=== PATIENT | female | born 1940 | race Caucasian/White ===

== ENCOUNTER → 2016-07-17 | Outpatient (CLI) | payer OTHER ==
[~2016-07-17] MED LIST: ASPI325T45 PO; ATV5 PO; AZEL0.15 NAE; CETI10TA84 PO; CHOL2000 PO; CHOL20009 PO; EFF75 PO; EFFSR75 PO; HYDR-5688 PO; INSDGIPEN SC; LEVO100C2 PO; LEVO25CA2 PO; LISI-725 PO; LORA-741 PO; METH4TAB31 PO; MONT1TAB5 PO; MULT-190 PO; NVLGI/PEN SC; NVLGIPEN SC; OMEP20CA9 PO; OXGN; OXYC-57 PO; PRAS1TAB4 PO; PRLSR20 PO; SIMV40TA2 PO; SPRIN/30 INH; TIOTCAP INH; VENL75CA PO
[2016-07-17 18:18] LABS: THYROID STIMULATING HORMONE 11.8 uIu/ml (0.300-4.500)
[2016-07-18 06:19] LABS: ESTIMATED AVERAGE GLUCOSE 183 mg/dl; HA1C FLAG Normal (Normal)
== END | disposition home or self-care (01) ==
LOC: C.LABBFT 14:31
PROVIDERS: ATTEND Internal Medicine
DX: E03.9 Hypothyroidism, unspecified (principal); E11.65 Type 2 diabetes mellitus with hyperglycemia

== ENCOUNTER → 2016-08-01 | Outpatient (CLI) | payer OTHER | END | disposition home or self-care (01) | LOC: C.MAMM 14:54 | PROVIDERS: ATTEND Internal Medicine | DX: M85.851 Other specified disorders of bone density and structure, right thigh (principal); M85.852 Other specified disorders of bone density and structure, left thigh ==

== ENCOUNTER → 2016-08-30 | Outpatient (CLI) | payer OTHER ==
[2016-08-30 17:48] LABS: THYROID STIMULATING HORMONE 1.03 uIu/ml (0.300-4.500)
== END | disposition home or self-care (01) ==
LOC: C.LABBFT 13:51
PROVIDERS: ATTEND Internal Medicine
DX: E03.9 Hypothyroidism, unspecified (principal)

== ENCOUNTER → 2016-10-05 | Outpatient (CLI) | payer OTHER ==
[2016-10-05 17:37] LABS: HEMATOCRIT 49.4 % (37-47); MEAN CELL VOLUME 95.6 fL (80-100); MEAN CORPUSCULAR HEMOGLOBIN 30.8 pg (25-34); MEAN CORPUSCULAR HGB CONC 32.2 g/dl (32-36); MEAN PLATELET VOLUME 12.5 fL (7.4-10.4); PLATELET COUNT 303 K/uL (130-400); RED BLOOD COUNT 5.17 M/uL (4.2-5.4); WHITE BLOOD COUNT 17.41 K/uL (4.8-10.8)
[2016-10-05 18:06] LABS: ALT/SGPT 23 U/L (12-78); AST/SGOT 16 U/L (15-37); BLOOD UREA NITROGEN 18 mg/dl (7-18); CALCIUM 9.5 mg/dl (8.5-10.1); CARBON DIOXIDE 29 mmol/L (21-32); CHLORIDE 109 mmol/L (98-107); GLUCOSE 93 mg/dl (70-99); POTASSIUM 4.3 mmol/L (3.5-5.1); SODIUM 145 mmol/L (136-145)
[2016-10-05 18:09] LABS: ALB/GLOB RATIO 1.1 (0.9-2); ALKALINE PHOSPHATASE 76 U/L (45-117); AMYLASE 45 U/L (25-115)
[2016-10-05 19:54] LABS: COMPLETE YES; EOSINOPHIL % 1.8 %; LYMPH ABS # 4.67 K/uL (1.2-3.4); LYMPHOCYTE % 26.8 %; NEUTROPHILS % 37.4 %; SMUDGE CELLS PRESENT; VARIANT LYM ABS # 4.98 K/uL; VARIANT LYMPHOCYTE % 28.6 %
[2016-10-05 19:58] LABS: LYME DISEASE AB IGM NEG (NEG)
[2016-10-05 19:59] LABS: LYME DISEASE AB IGG NEG (NEG)
== END | disposition home or self-care (01) ==
LOC: C.LABBFT 11:39
PROVIDERS: ATTEND Physician Assistant Medical
DX: R11.0 Nausea (principal); M19.90 Unspecified osteoarthritis, unspecified site

== ENCOUNTER 2016-11-07 09:34 | Emergency (ER) | payer OTHER ==
[~2016-11-07] VITALS: Ht 152.4 cm; Wt 93.2 kg
[~2016-11-07 09:34] MED LIST changes: -CETI10TA84 PO; -CHOL20009 PO; -EFF75 PO; -LEVO100C2 PO; -LORA-741 PO; -OXYC-57 PO; -SPRIN/30 INH; -VENL75CA PO
[2016-11-07 09:42] VITALS: TEMP 36.8; Ht 152.4 cm; Wt 93.2 kg
[2016-11-07] MEDS ORDERED: VENL75CA PO (10:17)
[2016-11-07] MEDS ORDERED: LORA-741 PO (10:17)
[2016-11-07] MEDS ORDERED: SPRIN/30 INH (10:17)
--- NOTE | 2016-11-07 10:20 | EMERGENCY ROOM VISIT NOTE ---
History Report prepared by Yaniv: Don Barrera Under the Supervision of: Dr. Warren Villa D.O. First contact with patient: 09:56 Chief Complaint: ARM PAIN Stated Complaint: RT ARM PAIN, FELL History of Present Illness The patient is a 76 year old female who presents to the Emergency Room with complaints of persistent right arm pain that began yesterday following a falling episode. The patient states that she experienced a fall yesterday as she was walking up the stairs. She fell directly onto the right arm and is currently complaining of pain in the right hand, wrist, and upper arm. The patient describes her pain as an ache, and rates it as a 9/10 in severity. The pain is increased with range of motion. She was able to ambulate following the fall, and denies injuring her head or neck. 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 A total of 10 systems reviewed and were otherwise negative. Past Medical & Surgical Medical Problems: (1) Heart disease (2) Kidney disease Surgical Problems: (1) Hx of heart artery stent Family History Cancer Diabetes mellitus Hypertension Social History Smoking Status: Current Every Day Smoker Drug Use: none Marital Status: Housing Status: lives with significant other Occupation Status: retired Current/Historical Medications Scheduled Aspirin (Aspirin), 325 MG PO HS Cholecalciferol (Vitamin D3), 2,000 UNITS PO QAM Home O2 Therapy (Oxygen), 2.5 LITERS NA HS Insulin Aspart (Novolog Flexpen), 45 UNITS SC QAM Insulin Aspart (Novolog Flexpen), 45 UNITS SC QPM Insulin Glargine (Lantus Solostar), 65 UNITS SC HS Levothyroxine Sodium (Tirosint), 25 MG PO QAM Lisinopril (Zestril), 20 MG PO QAM Ocuvite Preservision (Ocuvite Preservision), 1 TAB PO BID Omeprazole (Prilosec), 20 MG PO BID Prasugrel Hcl (Effient), 5 MG PO HS Simvastatin (Zocor), 40 MG PO HS Tiotropium [place] (Spiriva Handihaler), 1 CAP INH DAILY Venlafaxine Hcl (Effexor Xr), 75 MG PO TID Scheduled PRN Azelastine Hcl (Astepro), 2 SPRY CHERELLE BID PRN for ALLERGIES Hydrocodone/Acetaminophen 5MG/325MG ([place] 5MG/325MG), 1 TAB PO TID PRN for Pain Lorazepam (Ativan), 0.5 MG PO TID PRN for Anxiety Montelukast Sodium (Montelukast Sodium), 10 MG PO QAM PRN for ALLERGIES Oxycodone/Acetaminophen 5MG/325MG (Percocet 5MG/325MG), 1 TAB PO Q6H PRN for Pain Allergies Coded Allergies: Adhesives (Verified Allergy, Intermediate, BLISTERS, 11/07/16) Clopidogrel (Verified Allergy, Unknown, GI UPSET, 11/07/16) Liraglutide (Verified Allergy, Unknown, GI UPSET, 11/07/16) Phenol (Verified Allergy, Unknown, GI UPSET, 11/07/16) Propylene Glycol (Verified Allergy, Unknown, GI UPSET, 11/07/16) Amitriptyline (Verified Adverse Reaction, Severe, HALLUCINATIONS, 11/07/16) Atorvastatin (Verified Adverse Reaction, Intermediate, JOINT PAIN, 11/07/16 ) Cephalexin (Verified Adverse Reaction, Intermediate, N/V, 11/07/16) Pioglitazone (Verified Adverse Reaction, Intermediate, SEVERE FATIGUE, ) Tramadol (Verified Adverse Reaction, Intermediate, N/V, 11/07/16) Codeine (Verified Adverse Reaction, Mild, NAUSEA AND VOMITING, 11/07/16) Metformin (Verified Adverse Reaction, Mild, NAUSEA AND VOMITING, 11/07/16) Saccharin (Verified Adverse Reaction, Unknown, diarrhea, 11/07/16) Physical Exam Vital Signs Date Time Temp Pulse Resp B/P (MAP) Pulse Ox O2 Delivery O2 Flow Rate FiO2 11/07/16 12:13 97 18 132/80 93 11/07/16 11:29 98 20 163/101 93 Room Air 11/07/16 09:42 36.8 76 18 150/83 99 Room Air Physical Exam CONSTITUTIONAL/VITAL SIGNS: Reviewed / noted above. GENERAL: Non-toxic in appearance. INTEGUMENTARY: Warm, dry, and [place]. HEAD: Normocephalic. EYES: without scleral icterus or trauma. ENT/OROPHARYNX: clear and moist. LYMPHADENOPATHY/NECK: Is supple without lymphadenopathy or meningismus. RESPIRATORY: Lungs clear and equal. CARDIOVASCULAR: Regular rate and rhythm. GI/ABDOMEN: Soft and nontender. No organomegaly or pulsatile mass. No rebound or guarding. Normal bowel sounds. EXTREMITIES: Warm and well perfused. There is tenderness in the radial aspect of the right wrist, no obvious deformity. Mild discomfort in the proximal forearm and elbow with palpation. Normal ROM with minimal discomfort. BACK: No CVA tenderness. NEUROLOGICAL: Intact without focal deficits. PSYCHIATRIC: normal affect. MUSCULOSKELETAL: Normally developed with good muscle tone. Medical Decision & Procedures ER Provider Diagnostic Interpretation: Radiology results as stated below per my review and radiologist interpretation: RIGHT ELBOW 4 VIEWS HISTORY: Right elbow pain. fall Right COMPARISON: None. FINDINGS: Displacement anterior humeral fat pad consistent with a small joint effusion. No dislocation. No definite fractures identified. No radiopaque foreign bodies. IMPRESSION: No definite fractures. However, there appears to be a small joint effusion which raises the possibility of an occult fracture. Follow-up radiograph in 2 weeks is recommended for further evaluation. Electronically signed by: Robles Hurst M.D. 11/07/2016 11:08 AM Dictated Date/Time: 11/07/2016 11:06 AM RIGHT WRIST W/NAVICULAR MIN 3 VIEWS CLINICAL HISTORY: wrist pain Right pain COMPARISON: None. DISCUSSION: Moderate degenerative change of all major osseous structures. No well-defined acute bony abnormality. Mild soft tissue edema. IMPRESSION: Moderate soft tissue edema. Degenerative change. No acute bony abnormality. Electronically signed by: Noe Toro M.D. 11/07/2016 11:06 AM Dictated Date/Time: 11/07/2016 11:04 AM Medications Administered Medications (Trade) Dose Ordered Sig/Ruth Route Start Time Stop Time Status Last Admin Dose Admin Oxycodone/ Acetaminophen (Percocet 5-325mg Tab) 1 tab NOW ONCE PO 11/07/16 11:15 11/07/16 11:16 DC 11/07/16 11:28 1 TAB ED Course 1041: Previous medical records were reviewed. The patient was evaluated in room C4. A complete history and physical examination was performed. 1115: Ordered Oxycodone/Acetaminophen 1 tablet PO. 1209: On reevaluation, the patient is resting in bed. I discussed the results and findings with the patient. She verbalized agreement of the treatment plan. The patient was discharged home. Medical Decision Differential diagnosis: Etiologies such as fracture, dislocation, neurovascular compromise, compartment syndrome, soft tissue injury, as well as others were entertained. This is a 76-year-old female who presents to the ED with a chief complaint of right arm pain. The patient states that she fell going up some block stairs yesterday. The patient complains of right wrist and right arm pain. She has increased pain with movement. Exam is noted above. Her vital signs are normal. X-rays of the right wrist and right elbow was performed. There is no obvious fractures of either joints. There is an effusion in the elbow which could be concerning for an occult fracture. Follow-up x-ray was recommended. The patient was placed in a right arm sling. She was given Percocet by mouth here. She was discharged on Percocet. She will follow-up with orthopedics. She has seen Dr. Stanley in the past. Impression Primary Impression: Contusion of right elbow Additional Impressions: Contusion of right wrist Effusion, right elbow Scribe Attestation The scribe's documentation has been prepared under my direction and personally reviewed by me in its entirety. I confirm that the note above accurately reflects all work, treatment, procedures, and medical decision making performed by me. Departure Information Dispostion Home / Self-Care Prescriptions Oxycodone/Acetaminophen 5MG/325MG (PERCOCET 5MG/325MG) Tab 1 TAB PO Q6H Y for Pain, #15 TAB Prov: Warren Villa D.O. 11/07/16 Referrals Sumit De La Cruz M.D. (PCP) Aris Stanley M.D. Patient Instructions [facility] Additional Instructions Percocet as prescribed. No driving within 6 hours of use. Do not take additional Tylenol while taking Percocet. Follow-up with your doctor for further care and evaluation in 1-2 days. Return to the emergency department for worsening or new symptoms or any concerns. You have been examined and treated today on an emergency basis only. This is not a substitute for, or an effort to provide, complete comprehensive medical care. It is impossible to recognize and treat all injuries or illnesses in a single emergency department visit. It is therefore important that you follow up closely with your doctor. Call as soon as possible for an appointment. Follow-up with Dr. Stanley for reevaluation of your injury. Call today for an appointment. Problem Qualifiers
--- NOTE | 2016-11-07 11:07 | DIAGNOSTIC IMAGING REPORT ---
RIGHT WRIST W/NAVICULAR MIN 3 VIEWS CLINICAL HISTORY: wrist pain Right pain COMPARISON: None. DISCUSSION: Moderate degenerative change of all major osseous structures. No well-defined acute bony abnormality. Mild soft tissue edema. IMPRESSION: Moderate soft tissue edema. Degenerative change. No acute bony abnormality. Electronically signed by: Noe Toro M.D. 11/07/2016 11:06 AM Dictated Date/Time: 11/07/2016 11:04 AM
--- NOTE | 2016-11-07 11:10 | DIAGNOSTIC IMAGING REPORT ---
RIGHT ELBOW 4 VIEWS HISTORY: Right elbow pain. fall Right COMPARISON: None. FINDINGS: Displacement anterior humeral fat pad consistent with a small joint effusion. No dislocation. No definite fractures identified. No radiopaque foreign bodies. IMPRESSION: No definite fractures. However, there appears to be a small joint effusion which raises the possibility of an occult fracture. Follow-up radiograph in 2 weeks is recommended for further evaluation. Electronically signed by: Robles Hurst M.D. 11/07/2016 11:08 AM Dictated Date/Time: 11/07/2016 11:06 AM
[2016-11-07] MEDS ORDERED: OXYCODONE/ACETAMINOPHEN 5-325 TAB PO ONE (11:15)
[2016-11-07] MEDS ORDERED: OXYC-57 PO (12:03)
[2016-11-07 12:13] VITALS: BP 132/80; PULSE 97; O2SAT 93
[2017-01-02] MEDS ORDERED: PRAS1TAB4 PO (10:05)
[2017-01-02] MEDS ORDERED: CHOL20009 PO (10:22)
[2017-01-02] MEDS ORDERED: CETI10TA84 PO (10:22)
[2017-01-02] MEDS ORDERED: LEVO100C2 PO (10:22)
[2017-01-02] MEDS ORDERED: EFF75 PO (10:22)
[2017-01-02] MEDS ORDERED: OXGN (10:22)
== END 2016-11-07 12:14 | disposition home or self-care (01) ==
LOC: C.EDB 09:35 → C.EDC 12:14
DX: S50.01XA Contusion of right elbow, initial encounter (principal); S60.211A Contusion of right wrist, initial encounter; W10.8XXA Fall (on) (from) other stairs and steps, initial encounter; I51.9 Heart disease, unspecified; F17.200 Nicotine dependence, unspecified, uncomplicated; Z87.442 Personal history of urinary calculi; Z98.61 Coronary angioplasty status; Z79.82 Long term (current) use of aspirin; Z79.4 Long term (current) use of insulin; Z79.899 Other long term (current) drug therapy; Z88.5 Allergy status to narcotic agent; Z88.8 Allergy status to other drugs, medicaments and biological substances; Z91.09 Other allergy status, other than to drugs and biological substances; Z80.9 Family history of malignant neoplasm, unspecified; Z83.3 Family history of diabetes mellitus; Z82.49 Family history of ischemic heart disease and other diseases of the circulatory system

== ENCOUNTER → 2016-12-05 | Outpatient (CLI) | payer OTHER ==
[~2016-12-05] MED LIST changes: -ATV5 PO; +CETI10TA84 PO; +CHOL20009 PO; +EFF75 PO; -EFFSR75 PO; +LEVO100C2 PO; +LORA-741 PO; -METH4TAB31 PO; -OMEP20CA9 PO; +OXYC-57 PO; +SPRIN/30 INH; -TIOTCAP INH; +VENL75CA PO
[2016-12-05 18:38] LABS: ESTIMATED AVERAGE GLUCOSE 166 mg/dl; HA1C FLAG Normal (Normal)
== END | disposition home or self-care (01) ==
LOC: C.LABBFT 17:52
PROVIDERS: ATTEND Internal Medicine
DX: E11.65 Type 2 diabetes mellitus with hyperglycemia (principal); E55.9 Vitamin D deficiency, unspecified

== ENCOUNTER → 2017-01-10 | Day surgery (SDC) | payer OTHER ==
[2017-01-02 10:05] VITALS: Ht 152.4 cm; Wt 90.9 kg
[~2017-01-10] VITALS: Ht 152.4 cm; Wt 90.9 kg
[~2017-01-10] MED LIST changes: -AZEL0.15 NAE; -CHOL2000 PO; -HYDR-5688 PO; -LEVO25CA2 PO; -MONT1TAB5 PO; -MULT-190 PO; -NVLGI/PEN SC; +SODIUM CHLORIDE 0.9% 500ML 500 ML IV ONE; -SPRIN/30 INH; -VENL75CA PO
[2017-01-10 09:19] VITALS: TEMP 36.6
--- NOTE | 2017-01-10 09:39 | Endo History and Physical ---
History & Physical Date of Service: Jan 10, 2017. Chief Complaint: history of polyps Referring Physician: Dr. Sumit De La Cruz History of Present Illness 76 yo CF who presents for colonoscopy secondary to history of colon polyps. Past Medical History Diabetes, Arthritis, Asthma, Cancer, High Cholesterol, Sleep Apnea, Hypertension Past Surgical History Hx Cardiac Surgery: Yes (RT CAROTID ENDARTERECTOMY) Hx Internal Defibrillator: No Hx Pacemaker: No Hx Abdominal Surgery: Yes (APPY, PARTIAL HYSTERECTOMY) Hx of Implantable Prosthesis: No Hx Post-Op Nausea and Vomiting: No Hx Cancer Surgery: Yes (BLT MASTECTOMY AND FAILED RECONSTRUCTION) Hx Thoracic Surgery: No Hx Orthopedic: Yes (LT TKA, LEFT RCR) Hx Urinary Tract Surgery: No Family History None Social History Smoking Status: Current Every Day Smoker Hx Substance Use: No Hx Alcohol Use: No Allergies Coded Allergies: Adhesives (Verified Allergy, Intermediate, BLISTERS, 01/02/17) Clopidogrel (Verified Allergy, Unknown, GI UPSET, 01/02/17) Liraglutide (Verified Allergy, Unknown, GI UPSET, 01/02/17) Phenol (Verified Allergy, Unknown, GI UPSET, 01/02/17) Propylene Glycol (Verified Allergy, Unknown, GI UPSET, 01/02/17) Amitriptyline (Verified Adverse Reaction, Severe, HALLUCINATIONS, 01/02/17) Atorvastatin (Verified Adverse Reaction, Intermediate, JOINT PAIN, 11/07/16 ) Cephalexin (Verified Adverse Reaction, Intermediate, N/V, 01/02/17) Pioglitazone (Verified Adverse Reaction, Intermediate, SEVERE FATIGUE, 01/02) Tramadol (Verified Adverse Reaction, Intermediate, N/V, 01/02/17) Codeine (Verified Adverse Reaction, Mild, NAUSEA AND VOMITING, 01/02/17) Metformin (Verified Adverse Reaction, Mild, NAUSEA AND VOMITING, 01/02/17) Saccharin (Verified Adverse Reaction, Unknown, diarrhea, 01/02/17) Current Medications Reported Home Medications Medications Dose Route/Sig Max Daily Dose Days Date Category Dose Instructions Vitamin D (Cholecalciferol) 2,000 Unit Tab 1 Tab PO QAM 01/02/17 Reported Effexor (Venlafaxine Hcl) 75 Mg Tab 3 Tab PO QAM 01/02/17 Reported Tirosint (Levothyroxine Sodium) 100 Mcg Cap 1 Cap PO QAM 01/02/17 Reported Oxygen Gas 2.5 Liters NA HS 01/02/17 Reported WITH CPAP DEVICE Zyrtec (Cetirizine HCl) 10 Mg Tab 10 Mg PO DAILY PRN 01/02/17 Reported Effient (Prasugrel Hcl) 5 Mg Tab 5 Mg PO HS 01/02/17 Reported Percocet 5MG/325MG (Oxycodone/Acetaminophen) Tab 1 Tab PO Q6H PRN 11/07/16 Rx Ativan (Lorazepam) 0.5 Mg Tab 0.5 Mg PO TID PRN 11/07/16 Reported Lantus Solostar (Insulin Glargine) 100 Unit/Ml Inj 70 Units SC HS 05/11/16 Reported Novolog Flexpen (Insulin Aspart) 100 Units/Ml Inj 20 Units SC TID 05/11/16 Reported IN ADDITION TO SLIDING SCALE Aspirin 325 Mg Tab 325 Mg PO HS 05/11/16 Reported Zocor (Simvastatin) 40 Mg Tab 40 Mg PO HS 11/28/10 Reported Prilosec (Omeprazole) 20 Mg Capcr 20 Mg PO BID 11/28/10 Reported Zestril (Lisinopril) 20 Mg Tab 20 Mg PO QAM 11/28/10 Reported Vital Signs Weight (Kilograms): 90.91 Height (Feet): 5 Height (Inches): 0 Date Time Temp Pulse Resp B/P (MAP) Pulse Ox O2 Delivery O2 Flow Rate FiO2 01/10/17 09:19 36.6 90 24 144/64 (90) 97 Room Air Physical Exam General Appearance: WD/WN, no apparent distress Respiratory/Chest: Auscultation: breath sounds normal Cardiovascular: Heart Auscultation: RRR Abdomen: Bowel Sounds: normal Inspection & Palpation: soft, non-distended, no tenderness, guarding & rebound Assessment and Plan Assessment: 76 yo CF who presents for colonoscopy secondary to history of colon polyps. Plan: Proceed with colonoscopy.
--- NOTE | 2017-01-10 10:46 | Discharge Instructions ---
Endoscopy Patient Instructions Date / Procedure(s) Performed Jan 10, 2017. Colonoscopy Allergy Information Coded Allergies: Adhesives (Verified Allergy, Intermediate, BLISTERS, 01/02/17) Clopidogrel (Verified Allergy, Unknown, GI UPSET, 01/02/17) Liraglutide (Verified Allergy, Unknown, GI UPSET, 01/02/17) Phenol (Verified Allergy, Unknown, GI UPSET, 01/02/17) Propylene Glycol (Verified Allergy, Unknown, GI UPSET, 01/02/17) Amitriptyline (Verified Adverse Reaction, Severe, HALLUCINATIONS, 01/02/17) Atorvastatin (Verified Adverse Reaction, Intermediate, JOINT PAIN, 11/07/16 ) Cephalexin (Verified Adverse Reaction, Intermediate, N/V, 01/02/17) Pioglitazone (Verified Adverse Reaction, Intermediate, SEVERE FATIGUE, 01/02) Tramadol (Verified Adverse Reaction, Intermediate, N/V, 01/02/17) Codeine (Verified Adverse Reaction, Mild, NAUSEA AND VOMITING, 01/02/17) Metformin (Verified Adverse Reaction, Mild, NAUSEA AND VOMITING, 01/02/17) Saccharin (Verified Adverse Reaction, Unknown, diarrhea, 01/02/17) Discharge Date / Findings Jan 10, 2017. Colon polyp Diverticulosis Internal hemorrhoids Medication Instructions Stopped Medication(s): took ASA 01/090 OK to restart all medications today as prescribed Reported Home Medications Medications Dose Route/Sig Max Daily Dose Days Date Category Dose Instructions Vitamin D (Cholecalciferol) 2,000 Unit Tab 1 Tab PO QAM 01/02/17 Reported Effexor (Venlafaxine Hcl) 75 Mg Tab 3 Tab PO QAM 01/02/17 Reported Tirosint (Levothyroxine Sodium) 100 Mcg Cap 1 Cap PO QAM 01/02/17 Reported Oxygen Gas 2.5 Liters NA HS 01/02/17 Reported WITH CPAP DEVICE Zyrtec (Cetirizine HCl) 10 Mg Tab 10 Mg PO DAILY PRN 01/02/17 Reported Effient (Prasugrel Hcl) 5 Mg Tab 5 Mg PO HS 01/02/17 Reported Percocet 5MG/325MG (Oxycodone/Acetaminophen) Tab 1 Tab PO Q6H PRN 11/07/16 Rx Ativan (Lorazepam) 0.5 Mg Tab 0.5 Mg PO TID PRN 11/07/16 Reported Lantus Solostar (Insulin Glargine) 100 Unit/Ml Inj 70 Units SC HS 05/11/16 Reported Novolog Flexpen (Insulin Aspart) 100 Units/Ml Inj 20 Units SC TID 05/11/16 Reported IN ADDITION TO SLIDING SCALE Aspirin 325 Mg Tab 325 Mg PO HS 05/11/16 Reported Zocor (Simvastatin) 40 Mg Tab 40 Mg PO HS 11/28/10 Reported Prilosec (Omeprazole) 20 Mg Capcr 20 Mg PO BID 11/28/10 Reported Zestril (Lisinopril) 20 Mg Tab 20 Mg PO QAM 11/28/10 Reported Provider Instructions Activity Restrictions - No exercising or heavy lifting for 24 hours. - Do not drink alcohol the day of the procedure. - Do not drive a car or operate machinery until the day after the procedure. - Do not make any important decisions or sign important papers in 24 hours after the procedure. Following Day: - Return to full activity which may include returning to work/school. Diet Start your diet with liquids and light foods (jello, soup, juice, toast). Then eat your usual diet if not nauseated. Treatment For Common After Affects For mild abdominal pain, bloating, or excessive gas: - Rest - Eat lightly - Lie on right side Follow-Up Information Follow-up with Dr. Sumit De La Cruz as scheduled Anesthesia Information What You Should Know You have had a procedure that required some medicine to reduce anxiety and discomfort. This treatment is called moderate sedation. After receiving the treatment, you may be sleepy, but you will be able to breathe on your own. The effects of the treatment may last for several hours. Follow these instructions along with Activity/Diet recommendations noted above: * Do NOT do anything where dizziness or clumsiness would be dangerous. * Rest quietly at home today, then you can be up and about tomorrow. * Have a responsible person stay with you the rest of today. * You may have had an I.V. today. If so, you may take the dressing off later today. Recommendations Call your doctor if: * Trouble breathing * Continuous vomiting for more than 24 hours * Temperature above 101 degrees * Severe abdominal pain or bloating * Pain not relieved by pain medicine ordered * There is increased drainage or redness from any incision * A large amount of rectal bleeding greater than 2-3 tablespoons. (If you had a polyp/s removed or have hemorrhoids, a small amount of blood - from the rectum is to be expected.) * You have any unanswered questions or concerns. IN THE EVENT OF A SERIOUS EMERGENCY, GO TO THE NEAREST EMERGENCY ROOM Your discharge instructions were prepared by provider Nick Tim. Patient Instructions Signature Page Sharon Ochoa Patient (or Guardian) Signature/Date: I have read and understand the instructions given to me by my caregivers. Caregiver/RN/Doctor Signature/Date: The above-named patient and/or guardian has received patient instructions on this date. + Original Patient Signature Page (only) stays with chart. Please make copy for patient.
--- NOTE | 2017-01-10 10:51 | GI REPORT ---
Procedure Date: 01/10/2017 9:40 AM Procedure: Colonoscopy Indications: High risk colon cancer surveillance: Personal history of colonic polyps Medicines: Monitored Anesthesia Care Complications: No immediate complications. Estimated Blood Loss: Estimated blood loss: none. Procedure: Pre-Anesthesia Assessment: - Prior to the procedure, a History and Physical was performed, and patient medications and allergies were reviewed. The patient's tolerance of previous anesthesia was also reviewed. The risks and benefits of the procedure and the sedation options and risks were discussed with the patient. All questions were answered, and informed consent was obtained. Prior Anticoagulants: The patient last took aspirin 1 day and anticoagulant medication 2 days prior to the procedure. ASA Grade Assessment: III - A patient with severe systemic disease. After reviewing the risks and benefits, the patient was deemed in satisfactory condition to undergo the procedure. After I obtained informed consent, the scope was passed under direct vision. Throughout the procedure, the patient's blood pressure, pulse, and oxygen saturations were monitored continuously. The scope was introduced through the anus and advanced to the terminal ileum. The colonoscopy was performed without difficulty. The patient tolerated the procedure well. The quality of the bowel preparation was good. The terminal ileum, ileocecal valve, appendiceal orifice, and rectum were photographed. Findings: A 4 mm polyp was found in the sigmoid colon. The polyp was sessile. The polyp was removed with a hot snare. Resection and retrieval were complete. Multiple small-mouthed diverticula were found in the sigmoid colon. Non-bleeding internal hemorrhoids were found during retroflexion. The hemorrhoids were small. Impression: - One 4 mm polyp in the sigmoid colon, removed with a hot snare. Resected and retrieved. - Diverticulosis in the sigmoid colon. - Non-bleeding internal hemorrhoids. Recommendation: - Resume previous diet. - Continue present medications. - Repeat colonoscopy for surveillance based on pathology results. - Return to primary care physician as previously scheduled. Nick Tim, DO 01/10/2017 10:50:47 AM This report has been signed electronically. Note Initiated On: 01/10/2017 9:40 AM I attest to the content of the Intraoperative Record and orders documented therein, exceptions below
[2017-01-10 10:56] VITALS: BP 113/50; PULSE 74; O2SAT 95
--- NOTE | 2017-01-10 11:03 | Anesthesiology Progress Note ---
Anesthesia Post Op Note Date & Time Jan 10, 2017 at 11:03 Vital Signs Pain Intensity: 0 Vital Signs Past 12 Hours Date Time Temp Pulse Resp B/P (MAP) Pulse Ox O2 Delivery O2 Flow Rate FiO2 01/10/17 10:56 74 20 113/50 (71) 95 Room Air 01/10/17 10:44 76 20 110/49 (69) 96 Room Air 01/10/17 10:24 73 16 102/53 (69) 95 Room Air 01/10/17 09:19 36.6 90 24 144/64 (90) 97 Room Air Notes Mental Status: alert / awake / arousable, participated in evaluation Pt Amnestic to Procedure: Yes Nausea / Vomiting: adequately controlled Pain: adequately controlled Airway Patency, RR, SpO2: stable & adequate BP & HR: stable & adequate Hydration State: stable & adequate Anesthetic Complications: no major complications apparent
== END | disposition home or self-care (01) ==
LOC: C.GI 08:55
PROVIDERS: ATTEND Internal Medicine
DX: Z12.11 Encounter for screening for malignant neoplasm of colon (principal); D12.5 Benign neoplasm of sigmoid colon; K57.30 Diverticulosis of large intestine without perforation or abscess without bleeding; K64.8 Other hemorrhoids; E11.9 Type 2 diabetes mellitus without complications; F17.200 Nicotine dependence, unspecified, uncomplicated; Z86.010 Personal history of colon polyps; Z79.4 Long term (current) use of insulin; Z90.49 Acquired absence of other specified parts of digestive tract; Z90.710 Acquired absence of both cervix and uterus; Z90.13 Acquired absence of bilateral breasts and nipples; Z96.652 Presence of left artificial knee joint

== ENCOUNTER → 2017-02-26 | Outpatient (CLI) | payer OTHER ==
[~2017-02-26] MED LIST changes: -SODIUM CHLORIDE 0.9% 500ML 500 ML IV ONE
[2017-02-28 18:53] LABS: ALBUMIN 4.4 G/DL (3.8-4.8); GAMMA GLOBULIN 0.9 G/DL (0.8-1.7); TOTAL PROTEIN 7.2 G/DL (6.2-8.3)
== END | disposition home or self-care (01) ==
LOC: C.LAB 16:38
PROVIDERS: ATTEND Dermatology
DX: R21 Rash and other nonspecific skin eruption (principal)

== ENCOUNTER → 2017-03-08 | Outpatient (CLI) | payer OTHER ==
[2017-03-08 13:17] LABS: HEMATOCRIT 47.7 % (37-47); MEAN CELL VOLUME 92.3 fL (80-100); MEAN CORPUSCULAR HEMOGLOBIN 30.4 pg (25-34); MEAN CORPUSCULAR HGB CONC 32.9 g/dl (32-36); MEAN PLATELET VOLUME 11.9 fL (7.4-10.4); PLATELET COUNT 315 K/uL (130-400); RED BLOOD COUNT 5.17 M/uL (4.2-5.4); WHITE BLOOD COUNT 19.46 K/uL (4.8-10.8)
[2017-03-08 14:29] LABS: BASO % 0.2 %; BASO ABS # 0.03 K/uL (0-0.2); COMPLETE YES; EOS % 2.8 %; IG% 0.4 %; LYMPH % 37.3 %; LYMPH ABS # 7.26 K/uL (1.2-3.4); MONO % 4.7 %; NEUT % 54.6 %; SMUDGE CELLS PRESENT
[2017-03-08 14:34] LABS: ALKALINE PHOSPHATASE 91 U/L (45-117); ALT/SGPT 20 U/L (12-78); AST/SGOT 12 U/L (15-37); BLOOD UREA NITROGEN 14 mg/dl (7-18); BUN/CREATININE RATIO 14.3 (10-20); CARBON DIOXIDE 29 mmol/L (21-32); CHLORIDE 106 mmol/L (98-107); CHOLESTEROL 186 mg/dl (0-200); GLUCOSE 87 mg/dl (70-99); POTASSIUM 3.9 mmol/L (3.5-5.1); SODIUM 142 mmol/L (136-145)
[2017-03-08 14:39] LABS: CHOLESTEROL/HDL RATIO 3.3; HDL CHOLESTEROL 56 mg/dl; LDL CHOLESTEROL CALCULATED 75 mg/dl; THYROID STIMULATING HORMONE 0.977 uIu/ml (0.300-4.500); TRIGLYCERIDES 276 mg/dl (0-150); VERY LOW DENSITY LIPOPROT CALC 55 mg/dl
[2017-03-08 14:46] LABS: ESTIMATED AVERAGE GLUCOSE 169 mg/dl; HA1C FLAG Normal (Normal)
[2017-03-08 14:48] LABS: RATIO 20.4 mcg/mg (0-30.0)
== END | disposition home or self-care (01) ==
LOC: C.LAB1850 11:55
PROVIDERS: ATTEND Dermatology
DX: E11.65 Type 2 diabetes mellitus with hyperglycemia (principal); R21 Rash and other nonspecific skin eruption

== ENCOUNTER → 2017-06-14 | Outpatient (CLI) | payer OTHER ==
[~2017-06-14] MED LIST changes: -OXYC-57 PO
== END | disposition home or self-care (01) ==
LOC: C.LABPBG 11:28
PROVIDERS: ATTEND Physician Assistant
DX: E03.9 Hypothyroidism, unspecified (principal); E11.65 Type 2 diabetes mellitus with hyperglycemia; E78.5 Hyperlipidemia, unspecified

== ENCOUNTER 2017-06-27 11:31 | Emergency (ER) | payer OTHER ==
[~2017-06-27] VITALS: Ht 152.4 cm; Wt 90.1 kg
[2017-06-27 11:37] VITALS: TEMP 37; Ht 152.4 cm; Wt 90.1 kg
[2017-06-27] MEDS ORDERED: PROPARACAINE HCL 0.5% OP SOLN 15 ML BTL OP STA (12:21)
[2017-06-27] MEDS ORDERED: ALBUT/IPRATROP 3MG/0.5MG NEB 3 ML VIAL INH STA (12:21)
[2017-06-27] MEDS ORDERED: ACETAMINOPHEN 500 MG TAB PO STA (12:21)
[2017-06-27] MEDS ORDERED: SODIUM CHLORIDE 0.9% 1000ML 1,000 ML IV STA (12:21)
--- NOTE | 2017-06-27 12:29 | EMERGENCY ROOM VISIT NOTE ---
History Report prepared by Yaniv: Bhupinder Gonzales Under the Supervision of: Dr. Bao Bran M.D. First contact with patient: 12:17 Chief Complaint: FLU LIKE SX Stated Complaint: GREEN DISCHARGE FROM EYES,EARS HURT History of Present Illness The patient is a 76 year old female who presents to the Emergency Room with complaints of cough and congestion for the past 3 days. The patient complains of right ear pain, eye pain, green discharge from her eyes for the past 2 days, and . The patient states she has been unable to visit her PCP because he has been busy. She states she has received her flu shot this year. She denies chest pain, sob, and fevers. 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 Of note, she takes Prasugrel. Source of History: patient Onset: 3 days ago Position: other (global) Timing: constant Associated Symptoms: + cough, No fevers, No chest pain Note: Patient complains of right ear pain and eye pain with green discharge. Review of Systems See HPI for pertinent positives and negatives. A total of ten systems were reviewed and were otherwise negative. Past Medical & Surgical Medical Problems: (1) Heart disease (2) Kidney disease Surgical Problems: (1) Hx of heart artery stent Family History Cancer Diabetes mellitus Hypertension Social History Smoking Status: Current Some Day Smoker Drug Use: none Marital Status: Housing Status: lives with significant other Occupation Status: retired Current/Historical Medications Scheduled Albuterol (Ventolin Hfa), 2 PUFFS INH QID Aspirin (Aspirin), 325 MG PO HS Azithromycin (Zithromax), 250 MG PO DAILY Cholecalciferol (Vitamin D), 1 TAB PO QAM Erythromycin Opth (Erythromycin Opth), 1 INCH OP QID Home O2 Therapy (Oxygen), 2.5 LITERS NA HS Insulin Aspart (Novolog Flexpen), 22 UNITS SC TID Insulin Glargine (Lantus Solostar), 72 UNITS SC HS Levothyroxine Sodium (Tirosint), 1 CAP PO QAM Lisinopril (Zestril), 20 MG PO QAM Omeprazole (Prilosec), 20 MG PO BID Prasugrel Hcl (Effient), 5 MG PO HS Prednisone (Prednisone), 3 TAB PO DAILY Simvastatin (Zocor), 40 MG PO HS Venlafaxine Hcl (Effexor), 3 TAB PO QAM Scheduled PRN Cetirizine (Zyrtec), 10 MG PO DAILY PRN for PRN Lorazepam (Ativan), 0.5 MG PO TID PRN for Anxiety Allergies Coded Allergies: Adhesives (Verified Allergy, Intermediate, BLISTERS, 01/02/17) Clopidogrel (Verified Allergy, Unknown, GI UPSET, 01/02/17) Liraglutide (Verified Allergy, Unknown, GI UPSET, 01/02/17) Phenol (Verified Allergy, Unknown, GI UPSET, 01/02/17) Propylene Glycol (Verified Allergy, Unknown, GI UPSET, 01/02/17) Amitriptyline (Verified Adverse Reaction, Severe, HALLUCINATIONS, 01/02/17) Atorvastatin (Verified Adverse Reaction, Intermediate, JOINT PAIN, 11/07/16 ) Cephalexin (Verified Adverse Reaction, Intermediate, N/V, 01/02/17) Pioglitazone (Verified Adverse Reaction, Intermediate, SEVERE FATIGUE, 01/02) Tramadol (Verified Adverse Reaction, Intermediate, N/V, 01/02/17) Codeine (Verified Adverse Reaction, Mild, NAUSEA AND VOMITING, 01/02/17) Metformin (Verified Adverse Reaction, Mild, NAUSEA AND VOMITING, 01/02/17) Saccharin (Verified Adverse Reaction, Unknown, diarrhea, 01/02/17) Physical Exam Vital Signs Date Time Temp Pulse Resp B/P (MAP) Pulse Ox O2 Delivery O2 Flow Rate FiO2 06/27/17 16:35 85 18 147/77 92 06/27/17 16:01 85 18 147/77 92 Room Air 06/27/17 13:55 90 18 158/83 94 Room Air 06/27/17 12:53 89 18 161/84 95 Room Air 06/27/17 12:45 91 06/27/17 12:36 92 Room Air 06/27/17 11:37 37.0 96 18 158/90 96 Room Air Physical Exam GENERAL: Awake, alert, uncomfortable appearing, in no distress HENT: Normocephalic, atraumatic. Oropharynx unremarkable. Injected right TM. EYES: Bilateral scleral and conjunctival injection. Sclera non-icteric. She has corneal ulcer to the left eye at the 2 o'clock to 5 o'clock position. Anterior chamber is clear. NECK: Supple. No nuchal rigidity. FROM. No JVD. RESPIRATORY: Clear to auscultation. Diminished breath sounds in left lung clay with scant wheeze. CARDIAC: Regular rate, normal rhythm. Extremities warm and well perfused. Pulses equal. ABDOMEN: Soft, non-distended. No tenderness to palpation. No rebound or guarding. No masses. RECTAL: Deferred. MUSCULOSKELETAL: Chest examination reveals no tenderness. The back is symmetrical on inspection without obvious abnormality. There is no CVA tenderness to palpation. No joint edema. LOWER EXTREMITIES: Calves are equal size bilaterally and non-tender. No edema. No discoloration. NEURO: Normal sensorium. No sensory or motor deficits noted. SKIN: No rash or jaundice noted. Medical Decision & Procedures ER Provider Diagnostic Interpretation: Radiology results as stated below per my review and radiologist interpretation: CHEST ONE VIEW PORTABLE CLINICAL HISTORY: Atypical chest pain COMPARISON STUDY: 06/02/2014 FINDINGS: The heart is the upper limits of normal in size. There is persistent chronic interstitial thickening with a slight basilar predominance. There is no lobar consolidation. There are no pleural effusions.[ IMPRESSION: Persistent mild interstitial thickening. No evidence of acute parenchymal consolidation Electronically signed by: Donovan Heller M.D. 06/27/2017 1:02 PM Dictated Date/Time: 06/27/2017 1:01 PM Laboratory Results 06/27/17 12:52 Red Blood Count 5.28, Mean Corpuscular Volume 90.5, Mean Corpuscular Hemoglobin 31.6, Mean Corpuscular Hemoglobin Concent 34.9, Mean Platelet Volume 11.8, Neutrophils (%) (Auto) 59.6, Lymphocytes (%) (Auto) 29.4, Monocytes (%) (Auto) 9.5, Eosinophils (%) (Auto) 1.2, Basophils (%) (Auto) 0.1, Neutrophils # (Auto) 9.57, Lymphocytes # (Auto) 4.72, Monocytes # (Auto) 1.52, Eosinophils # (Auto) 0.20, Basophils # (Auto) 0.02 06/27/17 12:52 Test 06/27/17 12:52 06/27/17 12:55 White Blood Count 16.07 K/uL (4.8-10.8) Red Blood Count 5.28 M/uL (4.2-5.4) Hemoglobin 16.7 g/dL (12.0-16.0) Hematocrit 47.8 % (37-47) Mean Corpuscular Volume 90.5 fL (80-100) Mean Corpuscular Hemoglobin 31.6 pg (25-34) Mean Corpuscular Hemoglobin Concent 34.9 g/dl (32-36) Platelet Count 254 K/uL (130-400) Mean Platelet Volume 11.8 fL (7.4-10.4) Neutrophils (%) (Auto) 59.6 % Lymphocytes (%) (Auto) 29.4 % Monocytes (%) (Auto) 9.5 % Eosinophils (%) (Auto) 1.2 % Basophils (%) (Auto) 0.1 % Neutrophils # (Auto) 9.57 K/uL (1.4-6.5) Lymphocytes # (Auto) 4.72 K/uL (1.2-3.4) Monocytes # (Auto) 1.52 K/uL (0.11-0.59) Eosinophils # (Auto) 0.20 K/uL (0-0.5) Basophils # (Auto) 0.02 K/uL (0-0.2) RDW Standard Deviation 50.2 fL (36.4-46.3) RDW Coefficient of Variation 15.2 % (11.5-14.5) Immature Granulocyte % (Auto) 0.2 % Immature Granulocyte # (Auto) 0.04 K/uL (0.00-0.02) Anion Gap 4.0 mmol/L (3-11) Est Creatinine Clear Calc Drug Dose 45.6 ml/min Estimated GFR () 59.7 Estimated GFR (Non- 51.5 BUN/Creatinine Ratio 8.5 (10-20) Calcium Level 9.8 mg/dl (8.5-10.1) Influenza Type A Antigen Neg for Influ A (NEG) Influenza Type B Antigen Neg for Influ B (NEG) Laboratory results reviewed by me Medications Administered Medications (Trade) Dose Ordered Sig/Ruth Route Start Time Stop Time Status Last Admin Dose Admin Sodium Chloride 1,000 ml @ 999 mls/hr Q1H1M STAT IV 06/27/17 12:21 06/27/17 13:21 DC 06/27/17 12:58 999 MLS/HR Proparacaine HCl (Alcaine 0.5% Oph Soln) 1 drops NOW STAT OP 06/27/17 12:21 06/27/17 12:28 DC 06/27/17 12:40 1 DROPS Albuterol/ Ipratropium (Duoneb) 3 ml NOW STAT INH 06/27/17 12:21 06/27/17 12:28 DC 06/27/17 12:40 3 ML Sodium Chloride ([place]ary Nasal [place]) 2 sprays NOW ONCE NA 06/27/17 12:30 06/27/17 12:31 DC 06/27/17 12:39 2 SPRAYS Acetaminophen (Tylenol Tab) 1,000 mg NOW STAT PO 06/27/17 12:21 06/27/17 12:28 DC 06/27/17 12:40 1,000 MG Albuterol (Ventolin Hfa Inhaler) 2 puffs NOW STAT INH 06/27/17 15:29 06/27/17 15:32 DC 06/27/17 16:28 2 PUFFS Azithromycin (Zithromax Tab) 500 mg NOW ONCE PO 06/27/17 15:30 06/27/17 15:33 DC 06/27/17 16:28 500 MG Prednisone (PredniSONE TAB) 60 mg NOW STAT PO 06/27/17 15:29 06/27/17 15:32 DC 06/27/17 16:28 60 MG Erythromycin (Erythromycin Oph Oint) 1 appln NOW STAT OP 06/27/17 15:29 06/27/17 15:33 DC 06/27/17 16:28 1 APPLN ED Course 1217: The patient was evaluated in room B9. A complete history and physical exam was performed. 1514: I checked on the patient and they are doing well. 1533: I reevaluated the patient. Discussed results and discharge instructions: She verbalized understanding and agreement. The patient is ready for discharge. Medical Decision I reviewed the patient's past medical history, medications, and the nursing notes as described above. The patient's presentation and history were concerning for pneumonia, bronchitis , URI, influenza, viral syndrome, otitis media, and conjunctivitis. The patient is a 76-year-old woman with a past medical history of COPD and CAD who presents emergency Department with cough congestion, right ear pain and bilateral eye redness and irritation worsening over the past week per hpi. On arrival the patient is uncomfortable but no acute distress, afebrile with stable vital signs. Denies CP, sob, n/v, diarrhea. On exam the patient has mild injection to the right TM and bilateral scleral and conjunctival injection with purulent discharge. Upon slit exam the patient has abnormal fluorescein uptake of the left lateral cornea consistent with corneal ulceration. Otherwise anterior chambers are clear. On exam the patient has scattered wheezes and rhonchi which were improved after nebulizer. WBC 16. Flu negative. CXR negative for PNA. Will treat patient with steroids well as azithromycin for likely bronchitis which will also treat the patient's otitis media. Additionally patient given erythromycin ointment for her conjunctivitis. 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 She will contact them tomorrow. Otherwise plan for PCP follow-up. Findings and plan for follow-up reviewed with patient. Patient agreeable and d/c'd per discharge instructions. Medication Reconcilliation Current Medication List: was personally reviewed by me Blood Pressure Screening Patient's blood pressure: Elevated blood pressure Blood pressure disposition: Elevated BP felt to be situational Impression Primary Impression: Acute bronchitis Additional Impressions: Otitis media Conjunctivitis Corneal ulcer of left eye Scribe Attestation The scribe's documentation has been prepared under my direction and personally reviewed by me in its entirety. I confirm that the note above accurately reflects all work, treatment, procedures, and medical decision making performed by me. Departure Information Dispostion Home / Self-Care Prescriptions Erythromycin Opth (ERYTHROMYCIN OPTH) 12 Appln/3.5 Gm Oint 1 INCH OP QID for 7 Days, #1 TUBE Prov: Bao Bran M.D. 06/27/17 Prednisone (Prednisone) 20 Mg Tab 3 TAB PO DAILY for 4 Days, #12 TAB FOR 4 DAYS Prov: Bao Bran M.D. 06/27/17 Albuterol (Ventolin Hfa) 60 Puffs/5400 Mcg Aers 2 PUFFS INH QID for 5 Days, #1 INHALER Prov: Bao Bran M.D. 06/27/17 Azithromycin (Zithromax) 250 Mg Tab 250 MG PO DAILY, #4 TAB Prov: Bao Bran M.D. 06/27/17 Referrals Sumit De La Cruz M.D. (PCP) Patient Instructions Conjunctivitis, Conjunctivitis Infec Cause, Corneal Ulcer, ED Bronchitis Asthmatic, ED Otitis Media Acute Adult, [facility] Additional Instructions Please follow up with your embedded firmware engineer tomorrow and your primary care physician in the next 1-3 days for re-evaluation. You likely have a bronchitis as well as an ear and eye infection. Your also have a ulceration to your left cornea. Otherwise, your exam, chest xray, and lab results did not show signs of an emergent condition at this time. Prednisone and Azithromycin as directed. Use your albuterol inhaler 2 puffs every 4 hours for the next 48 hours and then as needed thereafter. Erythromycin ointment to both eyes as directed. Return to the emergency department for worsening symptoms as described in the accompanying instructions. Problem Qualifiers
[2017-06-27] MEDS ORDERED: SODIUM CHLORIDE 0.65% NA SOLN 45 ML (OCEAN) ONE (12:30)
[2017-06-27 12:36] VITALS: O2SAT 92
--- NOTE | 2017-06-27 13:03 | DIAGNOSTIC IMAGING REPORT ---
CHEST ONE VIEW PORTABLE CLINICAL HISTORY: Atypical chest pain COMPARISON STUDY: 06/02/2014 FINDINGS: The heart is the upper limits of normal in size. There is persistent chronic interstitial thickening with a slight basilar predominance. There is no lobar consolidation. There are no pleural effusions.[ IMPRESSION: Persistent mild interstitial thickening. No evidence of acute parenchymal consolidation Electronically signed by: Donovan Heller M.D. 06/27/2017 1:02 PM Dictated Date/Time: 06/27/2017 1:01 PM
[2017-06-27 13:06] LABS: BASO % 0.1 %; BASO ABS # 0.02 K/uL (0-0.2); EOS % 1.2 %; HEMATOCRIT 47.8 % (37-47); HEMOGLOBIN 16.7 g/dL (12.0-16.0); IG# 0.04 K/uL (0.00-0.02); LYMPH % 29.4 %; LYMPH ABS # 4.72 K/uL (1.2-3.4); MEAN CELL VOLUME 90.5 fL (80-100); MEAN CORPUSCULAR HEMOGLOBIN 31.6 pg (25-34); MEAN CORPUSCULAR HGB CONC 34.9 g/dl (32-36); MEAN PLATELET VOLUME 11.8 fL (7.4-10.4); MONO % 9.5 %; MONO ABS # 1.52 K/uL (0.11-0.59); NEUT % 59.6 %; NEUT ABS # 9.57 K/uL (1.4-6.5); PLATELET COUNT 254 K/uL (130-400); RED CELL DISTRIBUTION WIDTH CV 15.2 % (11.5-14.5); RED CELL DISTRIBUTION WIDTH SD 50.2 fL (36.4-46.3); WHITE BLOOD COUNT 16.07 K/uL (4.8-10.8)
[2017-06-27 13:25] LABS: CALCIUM 9.8 mg/dl (8.5-10.1); CREATININE 1.05 mg/dl (0.60-1.20); POTASSIUM 3.3 mmol/L (3.5-5.1)
[2017-06-27 13:41] LABS: INFLUENZA B ANTIGEN Neg for Influ B (NEG)
[2017-06-27] MEDS ORDERED: ALBUTEROL HFA 8 GM INHALER INH STA (15:29)
[2017-06-27] MEDS ORDERED: ERYTHROMYCIN OP OINT 1 GM PKT OP STA (15:29)
[2017-06-27] MEDS ORDERED: AZITHROMYCIN 250 MG TAB PO ONE (15:30)
[2017-06-27] MEDS ORDERED: PRED20TA PO (15:35)
[2017-06-27] MEDS ORDERED: AZIT250T PO (15:35)
[2017-06-27] MEDS ORDERED: PRVHFAIN INH (15:35)
[2017-06-27] MEDS ORDERED: ERYOPO OP (15:35)
[2017-06-27 16:35] VITALS: BP 147/77; PULSE 85; O2SAT 92
== END 2017-06-27 16:37 | disposition home or self-care (01) ==
LOC: C.EDB 11:32
DX: J20.9 Acute bronchitis, unspecified (principal); H66.91 Otitis media, unspecified, right ear; H10.9 Unspecified conjunctivitis; H16.002 Unspecified corneal ulcer, left eye; N28.9 Disorder of kidney and ureter, unspecified; I51.9 Heart disease, unspecified; Z79.82 Long term (current) use of aspirin; Z99.81 Dependence on supplemental oxygen; Z79.4 Long term (current) use of insulin; Z82.49 Family history of ischemic heart disease and other diseases of the circulatory system; Z83.3 Family history of diabetes mellitus

== ENCOUNTER → 2017-07-23 | Outpatient (CLI) | payer OTHER ==
[~2017-07-23] MED LIST changes: +AMOX500T PO; +AZIT250T PO; +ERYOPO OP
--- NOTE | 2017-07-23 11:02 | DIAGNOSTIC IMAGING REPORT ---
SOFT TISS HEAD/NECK-THYROID CLINICAL HISTORY: 76 years-old Female presenting with K11.20 [id number]. TECHNIQUE: Real-time grayscale and color Doppler ultrasound imaging of the right parotid gland was performed. COMPARISON: PET/CT from 2010. FINDINGS: The right parotid gland is homogeneously hyperechoic with posterior shadowing, an expected normal appearance of the gland. No hyperemia on color Doppler. No associated lymphadenopathy. No fluid collection. IMPRESSION: No sonographic abnormality of the right parotid gland. Electronically signed by: Joss Agarwal M.D. 07/23/2017 11:00 AM Dictated Date/Time: 07/23/2017 10:59 AM
== END | disposition home or self-care (01) ==
LOC: C.ULTR 10:37
PROVIDERS: ATTEND Internal Medicine
DX: K11.20 Sialoadenitis, unspecified (principal)

== ENCOUNTER → 2017-08-31 | Outpatient (CLI) | payer OTHER ==
[~2017-08-31] MED LIST changes: -AZIT250T PO; -ERYOPO OP; -PRAS1TAB4 PO
[2017-08-31 16:41] LABS: HEMATOCRIT 45.6 % (37-47); HEMOGLOBIN 15.5 g/dL (12.0-16.0); MEAN CELL VOLUME 91.9 fL (80-100); MEAN CORPUSCULAR HEMOGLOBIN 31.3 pg (25-34); MEAN PLATELET VOLUME 12.2 fL (7.4-10.4); PLATELET COUNT 276 K/uL (130-400); RED CELL DISTRIBUTION WIDTH CV 15.1 % (11.5-14.5)
[2017-08-31 17:31] LABS: ALBUMIN 3.8 gm/dl (3.4-5.0); ALT/SGPT 25 U/L (12-78); AST/SGOT 17 U/L (15-37); BLOOD UREA NITROGEN 14 mg/dl (7-18); CALCIUM 9.1 mg/dl (8.5-10.1); CARBON DIOXIDE 30 mmol/L (21-32); CREATININE 1.19 mg/dl (0.60-1.20); GLUCOSE 219 mg/dl (70-99); POTASSIUM 3.6 mmol/L (3.5-5.1); SODIUM 140 mmol/L (136-145)
[2017-08-31 17:33] LABS: ALKALINE PHOSPHATASE 92 U/L (45-117); TOTAL PROTEIN 7.5 gm/dl (6.4-8.2)
== END | disposition home or self-care (01) ==
LOC: C.LABBFT 14:28
PROVIDERS: ATTEND Internal Medicine Hematology & Oncology
DX: C91.10 Chronic lymphocytic leukemia of B-cell type not having achieved remission (principal)

== ENCOUNTER → 2017-09-25 | Outpatient (CLI) | payer OTHER ==
[~2017-09-25] MED LIST changes: +ASPECOTC PO; -ASPI325T45 PO
[2017-09-25 17:27] LABS: BLOOD UREA NITROGEN 21 mg/dl (7-18); CALCIUM 9.7 mg/dl (8.5-10.1); CARBON DIOXIDE 30 mmol/L (21-32); CREATININE 1.45 mg/dl (0.60-1.20); GLUCOSE 251 mg/dl (70-99); POTASSIUM 4.5 mmol/L (3.5-5.1); SODIUM 138 mmol/L (136-145)
[2017-09-26 06:02] LABS: HEMOGLOBIN A1C 8.9 % (4.5-5.6)
== END | disposition home or self-care (01) ==
LOC: C.LABPBG 11:04
PROVIDERS: ATTEND Physician Assistant
DX: E11.65 Type 2 diabetes mellitus with hyperglycemia (principal)

== ENCOUNTER 2017-10-12 12:22 | Emergency (ER) | payer OTHER ==
[~2017-10-12] VITALS: Ht 152.4 cm; Wt 91.0 kg
[2017-10-12 12:25] VITALS: TEMP 36.8; Ht 152.4 cm; Wt 91.0 kg
--- NOTE | 2017-10-12 13:19 | DIAGNOSTIC IMAGING REPORT ---
L FOOT MIN 3 VIEWS ROUTINE HISTORY: 77 years-old Female LEFT, TWISTING INJURY acute left foot pain status post twisting injury COMPARISON: Left ankle radiographs of same day TECHNIQUE: 3 views of the left foot FINDINGS: Bones appear mildly demineralized. 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 There is no acute fracture or dislocation. No opaque foreign body. Large enthesophytes about the Achilles and plantar calcaneus with dystrophic appearing calcifications seen within the region of the mid Achilles tendon with mild associated soft tissue prominence. Peripheral arterial calcifications are noted. Mild marginal spurring about the midfoot. IMPRESSION: 1. No acute fracture or dislocation. 2. Mildly demineralized appearance of the bones with degenerative changes as above. The above report was generated using voice recognition software. It may contain grammatical, syntax or spelling errors. Electronically signed by: Kosta Cortez M.D. 10/12/2017 1:18 PM Dictated Date/Time: 10/12/2017 1:16 PM
--- NOTE | 2017-10-12 13:20 | DIAGNOSTIC IMAGING REPORT ---
LEFT ANKLE 3 VIEWS CLINICAL HISTORY: Left ankle pain. Twisting injury. FINDINGS: 3 views of the left ankle are obtained. No prior studies are available for comparison at the time of dictation. The skeletal structures are osteopenic. There is no radiographic evidence of left ankle fracture. Irregularity involving the medial malleolus is likely chronic. No cortical disruption is identified. The ankle mortise is intact. There are large dorsal and plantar calcaneal enthesophytes. No joint effusion is identified. Soft tissue edema is present around ankle. Scattered vascular calcifications are noted. IMPRESSION: 1. Soft tissue swelling with no radiographic evidence of left ankle fracture. 2. Osteopenia and large heel spurs as above. Electronically signed by: Elliot Carolina M.D. 10/12/2017 1:19 PM Dictated Date/Time: 10/12/2017 1:15 PM
--- NOTE | 2017-10-12 13:38 | EMERGENCY ROOM VISIT NOTE ---
ED Visit Note First contact with patient: 12:47 CHIEF COMPLAINT: Left foot and ankle injury last evening HISTORY OF PRESENT ILLNESS: Patient is a 77-year-old female who presents to the emergency department for evaluation of left foot and ankle pain after she rolled the ankle last evening. She stepped off of the edge of the ramp leading into her laundry room last night. Complains of swelling and pain. The patient has been unable to bear weight on her ankle and has been using a cane. She did not take any medication for discomfort, nor applied any ice, she did elevate the ankle. No knee pain. REVIEW OF SYSTEMS: Review of systems as per HPI. All other systems reviewed were negative. At least 6 systems reviewed. PMH: Electronic medical records are reviewed and summarized as above/below. See Problem List. SOCIAL HISTORY: Patient lives at home with her spouse. Smoker.. PHYSICAL EXAM: Vital Signs: Reviewed Nurse's notes. MENTAL STATUS: Pleasant 77- year-old female who is awake and alert and seated in a wheelchair in no acute distress. MUSCULOSKELETAL: The left ankle is slightly ecchymotic, swollen and tender over the lateral aspect but the skin is intact and there is no ligamentous instability. Very slight pain over the 5th metatarsal, no pain over the proximal fibular head. Lisfranc joint is negative. There is no deformity. The foot and toes are warm and well-perfused. Sensation to pain and light touch is intact. EMERGENCY DEPARTMENT COURSE: X-ray of the right foot and ankle noted osteopenic and arthritic changes without evidence for acute fracture. A compression sleeve and gel splint were applied to the ankle under my direction and the position was satisfactory. The patient has a cane, crutches and walker at home. She can weight-bear as tolerated with her assistive devices. She was encouraged to continue to ice and elevate. She was given a small prescription for [place] for pain. Patient was reviewed in the [facility] Prescription Drug Monitoring Program, and there were no red flags noted. Medication reconciliation: I attest that I have personally reviewed the patient' s current medication list. Blood pressure screening : Patient was found to have normal blood pressure on screening and does not require follow-up. Differential diagnosis include foot verses ankle sprain/fracture, contusion, dislocation. LEFT ANKLE 3 VIEWS CLINICAL HISTORY: Left ankle pain. Twisting injury. FINDINGS: 3 views of the left ankle are obtained. No prior studies are available for comparison at the time of dictation. The skeletal structures are osteopenic. There is no radiographic evidence of left ankle fracture. Irregularity involving the medial malleolus is likely chronic. No cortical disruption is identified. The ankle mortise is intact. There are large dorsal and plantar calcaneal enthesophytes. No joint effusion is identified. Soft tissue edema is present around ankle. Scattered vascular calcifications are noted. IMPRESSION: 1. Soft tissue swelling with no radiographic evidence of left ankle fracture. 2. Osteopenia and large heel spurs as above. ] L FOOT MIN 3 VIEWS ROUTINE HISTORY: 77 years-old Female LEFT, TWISTING INJURY acute left foot pain status post twisting injury COMPARISON: Left ankle radiographs of same day TECHNIQUE: 3 views of the left foot FINDINGS: Bones appear mildly demineralized. 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 There is no acute fracture or dislocation. No opaque foreign body. Large enthesophytes about the Achilles and plantar calcaneus with dystrophic appearing calcifications seen within the region of the mid Achilles tendon with mild associated soft tissue prominence. Peripheral arterial calcifications are noted. Mild marginal spurring about the midfoot. IMPRESSION: 1. No acute fracture or dislocation. 2. Mildly demineralized appearance of the bones with degenerative changes as above. 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 (6) Conjunctivitis Status: Resolved (7) Contusion of right elbow Status: Resolved (8) Contusion of right wrist Status: Resolved (9) Corneal ulcer of left eye Status: Resolved (10) Effusion, right elbow Status: Resolved (11) Heart disease Status: Chronic (12) Hyperlipidemia, Unspecified Status: Chronic (13) Hypertension Nos Status: Chronic (14) Hypothyroidism, Unspecified Status: Chronic (15) Kidney disease Status: Chronic (16) Otitis media Status: Resolved (17) partial thickness rotator cuff tear Status: Resolved (18) Subacromial impingement of right shoulder Status: Resolved (19) Type 2 Diabetes Mellitus Without Complications Status: Chronic Surgical Problems: (1) Hx of heart artery stent Status: Resolved (2) S/P carotid endarterectomy Status: Resolved Current/Historical Medications Scheduled Aspirin (Aspirin), 325 MG PO HS Cholecalciferol (Vitamin D), 2,000 UNITS PO QAM Home O2 Therapy (Oxygen), 2.5 LITERS NA HS Insulin Aspart (Novolog Flexpen), 20 UNITS SC DAILY Insulin Glargine (Lantus Solostar), 72 UNITS SC HS Levothyroxine Sodium (Tirosint), 100 MCG PO QAM Lisinopril (Zestril), 20 MG PO QAM Omeprazole (Prilosec), 20 MG PO BID Simvastatin (Zocor), 40 MG PO HS Venlafaxine Hcl (Effexor), 225 MG PO QAM Scheduled PRN Cetirizine (Zyrtec), 10 MG PO DAILY PRN for PRN Hydrocodone/Acetaminophen 5MG/325MG ([place] 5MG/325MG), 1-2 TABLET PO Q4 PRN for Pain Lorazepam (Ativan), 0.5 MG PO TID PRN for Anxiety Allergies Coded Allergies: Adhesives (Verified Allergy, Intermediate, BLISTERS, 10/12/17) Clopidogrel (Verified Allergy, Unknown, GI UPSET, 10/12/17) Liraglutide (Verified Allergy, Unknown, GI UPSET, 10/12/17) Phenol (Verified Allergy, Unknown, GI UPSET, 10/12/17) Propylene Glycol (Verified Allergy, Unknown, GI UPSET, 10/12/17) Amitriptyline (Verified Adverse Reaction, Severe, HALLUCINATIONS, 10/12/17) Atorvastatin (Verified Adverse Reaction, Intermediate, JOINT PAIN, 10/12/17 ) Cephalexin (Verified Adverse Reaction, Intermediate, N/V, 10/12/17) Pioglitazone (Verified Adverse Reaction, Intermediate, SEVERE FATIGUE, ) Tramadol (Verified Adverse Reaction, Intermediate, N/V, 10/12/17) Codeine (Verified Adverse Reaction, Mild, NAUSEA AND VOMITING, 10/12/17) Metformin (Verified Adverse Reaction, Mild, NAUSEA AND VOMITING, 10/12/17) Doxycycline (Unverified Adverse Reaction, Unknown, GI SYMPTOMS, 10/12/17) vomiting Saccharin (Verified Adverse Reaction, Unknown, diarrhea, 10/12/17) Vital Signs Date Time Temp Pulse Resp B/P (MAP) Pulse Ox O2 Delivery O2 Flow Rate FiO2 10/12/17 14:01 82 18 126/62 95 10/12/17 12:25 36.8 86 16 118/67 96 Room Air Departure Information Impression Primary Impression: Left ankle sprain Additional Impression: Sprain of left foot Prescriptions Hydrocodone/Acetaminophen 5MG/325MG ([place] 5MG/325MG) Tab 1-2 TABLET PO Q4 Y for Pain, #10 TAB For Initial Treatment Prov: Azul Cox PA 10/12/17 Referrals Sumit De La Cruz M.D. (PCP) Patient Instructions My [facility] Additional Instructions Hydrocodone/Acetaminophen ([place]) 5/325 mg: Take 1-2 pills every four hours for breakthrough pain. Avoid alcohol, operating machinery or dangerous equipment, working on ladders or roofs, DRIVING, or situations where being under the influence may be dangerous. It is recommended to use an [id number] stool softener such as Colace, 100mg twice daily while taking this medication to avoid constipation. Ibuprofen(Motrin, Advil) may be used for fever or pain. Use 600mg every six hours as needed. Take with food. Avoid using more than 2400mg in a 24 hour period. Do not use 2400mg per day for more than three consecutive days without physician direction. Prolonged inappropriate use can lead to stomach upset or ulcers. This medication can be taken if you need to drive, work, or perform activities which may be dangerous when taking narcotic pain medication. (AND/OR) Acetaminophen(Tylenol) may be used for fever or pain. Use 1000mg every six hours as needed. Avoid using more than 3000mg in a 24 hour period. This medication can be taken if you need to drive, work, or perform activities which may be dangerous when taking narcotic pain medication. Ice compresses for 20 minutes at a time four times daily for 2-3 days. Use the gel splint and walker/cane as instructed. Rest and elevate your injury. Continue current medications. Return to the ER immediately for any numbness, tingling, severe pain, extreme swelling in the extremity or as needed. Followup with your family doctor or orthopedic surgery if no improvement in 5-7 days. Problem Qualifiers
--- NOTE | 2017-10-12 13:44 | EMERGENCY ROOM VISIT NOTE ---
ED Visit Note First contact with patient: 12:47 This Patient was discussed with the physician public health assistant, Ana Cox PA-C. The pertinent historical and physical exam findings were confirmed. I agree with the studies ordered and with the interpretations of these studies. I agree with the disposition and care plan.
[2017-10-12] MEDS ORDERED: HYDR-5688 PO (13:54)
[2017-10-12 14:01] VITALS: BP 126/62; PULSE 82; O2SAT 95
== END 2017-10-12 14:02 | disposition home or self-care (01) ==
LOC: C.EDB 12:23 → C.EDD 14:02
DX: S93.402A Sprain of unspecified ligament of left ankle, initial encounter (principal); S93.602A Unspecified sprain of left foot, initial encounter; X50.0XXA Overexertion from strenuous movement or load, initial encounter; F17.210 Nicotine dependence, cigarettes, uncomplicated; F41.9 Anxiety disorder, unspecified; J45.909 Unspecified asthma, uncomplicated; J44.9 Chronic obstructive pulmonary disease, unspecified; Z85.6 Personal history of leukemia; E78.5 Hyperlipidemia, unspecified; I10 Essential (primary) hypertension; E03.9 Hypothyroidism, unspecified; E11.9 Type 2 diabetes mellitus without complications; Z95.5 Presence of coronary angioplasty implant and graft; Z79.82 Long term (current) use of aspirin; Z79.4 Long term (current) use of insulin; Z79.899 Other long term (current) drug therapy; Z88.5 Allergy status to narcotic agent; Z88.1 Allergy status to other antibiotic agents; Z88.8 Allergy status to other drugs, medicaments and biological substances; Z91.048 Other nonmedicinal substance allergy status; Z91.018 Allergy to other foods

== ENCOUNTER 2019-01-21 14:36 | Inpatient (IN) ==
[2019-01-21] MEDS ORDERED: SODIUM CHLORIDE 0.9% 500 ML IV SCH (14:45)
[2019-01-21 15:20] LABS: Hematocrit (blood only) 50.4 % (37-47); Hemoglobin 17.4 g/dL (12.0-16.0); Mean Corpuscular Hemoglobin 31.3 pg (25-34); Mean Corpuscular Hgb Conc 34.5 g/dL (32-36); Mean Corpuscular Volume 90.6 fL (80-100); Mean Platelet Volume 11.6 fL (7.4-10.4); Platelet Count 281 K/uL (130-400); RDW Coefficient of Variation 14.4 % (11.5-14.5); RDW Standard Deviation 48.3 fL (36.4-46.3); Red Blood Count 5.56 M/uL (4.2-5.4); White Blood Count 17.36 K/uL (4.8-10.8)
[2019-01-21 15:35] LABS: Albumin Level 3.7 gm/dl (3.4-5.0); BUN Creatinine Ratio 10.6 (10-20); Calcium 9.4 mg/dl (8.5-10.1); Creatinine Clr Calc Pharmacy 33.9 ml/min; Est GFR (Non-African American) 36.2; Potassium 4.5 mmol/L (3.5-5.1)
[2019-01-21 15:38] LABS: Albumin Globulin Ratio 0.9 (0.9-2); Bilirubin,Total 0.6 mg/dl (0.2-1); Globulin 4.1 gm/dl (2.5-4.0); Total Protein 7.8 gm/dl (6.4-8.2)
[2019-01-21 15:42] LABS: Basophils # (auto) 0.03 K/uL (0-0.2); Basophils % (auto) 0.2 %; Eosinophils # (auto) 0.36 K/uL (0-0.5); Eosinophils % (auto) 2.1 %; Immature Granulocytes # (auto) 0.06 K/uL (0.00-0.02); Immature Granulocytes % (auto) 0.3 %; Lymphocytes # (auto) 6.68 K/uL (1.2-3.4); Lymphocytes % (auto) 38.5 %; Monocytes # (auto) 0.85 K/uL (0.11-0.59); Monocytes % (auto) 4.9 %; Neutrophils # (auto) 9.38 K/uL (1.4-6.5)
[2019-01-21] MEDS ORDERED: SODIUM CHLORIDE 0.9% 1000ML 1,000 ML IV SCH (15:45)
[2019-01-21] MEDS ORDERED: ONDANSETRON INJ 2 MG/ML 2 ML VIAL IV STA ×2 (15:55→16:55)
[2019-01-21] MEDS ORDERED: HYDROmorphone INJ 0.5 MG/0.5 ML SYR IV STA (15:55)
--- NOTE | 2019-01-21 16:09 | Emergency Department Note ---
Entered by Jorge Alberto Wilkerson acting as a scribe for Sammie Rosado MD History of Present Illness General Chief complaint: Back Injury/Pain Stated complaint: SEVERE BACK PAIN Source: patient History of Present Illness Provider complaint: Back pain Onset (ago): day(s) 5 Location: back Pain Consistency: + constant Maximum Pain Intensity: 8 Current Pain Intensity: 8 Relieved By: + none Exacerbated By: + other (Bending ) Associated symptoms: + other (Positive incontinence; Negative diarrhea); no fever/chills and no nausea/vomiting The patient is a 78 year old female who presents to the Emergency Room with complaints of constant severe mid to lower back pain that started about 5 days ago. The patient rates the pain as an 8/10 and notes that it is worse when she bends over while standing. The patient also notes that since the onset of her symptoms she has been incontinent with urine, which is abnormal for her. The patient reports that she has some nausea but denies any vomiting or diarrhea. The patient also denies any fevers but notes that she has been sleeping for longer periods of time than she usually does. The patient mentioned that she has had UTIs in the past but not frequently. The patient has no history of back surgery but does have diabetes. Home Medications Home Medications Medication Instructions Recorded Confirmed Type omeprazole 20 mg PO DAILY #0 11/28/10 01/21/19 History lorazepam 0.5 mg PO TID PRN #0 tab 11/07/16 01/21/19 History cholecalciferol (vitamin D3) 2,000 unit PO DAILY #0 01/02/17 01/21/19 History levothyroxine 100 mcg PO DAILY #0 01/02/17 01/21/19 History PreserVision Lutein 1 cap PO DAILY 09/04/18 01/21/19 History insulin aspar prot-insulin aspart 56 units SQ BID #15 ml 12/03/18 01/21/19 Rx 100 unit/mL (70-30) subcutaneous pen rosuvastatin 10 mg tablet 10 mg PO DAILY #30 tab 12/03/18 01/21/19 Rx cetirizine 10 mg capsule 10 mg PO DAILY #30 cap 01/14/19 01/21/19 Rx hydroxyzine HCl 10 mg tablet 10 mg PO HS PRN #30 tab 01/14/19 01/21/19 Rx lisinopril 20 mg tablet 20 mg PO DAILY #90 tab 01/16/19 01/21/19 Rx aspirin 81 mg PO DAILY 01/21/19 01/21/19 History venlafaxine 150 mg PO BID 01/21/19 01/21/19 History Allergies Allergy/AdvReac Type Severity Reaction Status Date / Time adhesive Allergy Intermediate BLISTERS Verified 01/21/19 15:06 clopidogrel Allergy Unknown GI UPSET Verified 01/21/19 15:06 liraglutide Allergy Unknown GI UPSET Verified 01/21/19 15:06 phenol Allergy Unknown GI UPSET Verified 01/21/19 15:06 propylene glycol Allergy Unknown GI UPSET Verified 01/21/19 15:06 amitriptyline AdvReac Severe HALLUCINATI Verified 01/21/19 15:06 ONS atorvastatin AdvReac Intermediate JOINT PAIN Verified 01/21/19 15:06 cephalexin AdvReac Intermediate N/V Verified 01/21/19 15:06 pioglitazone AdvReac Intermediate SEVERE Verified 01/21/19 15:06 FATIGUE tramadol AdvReac Intermediate N/V Verified 01/21/19 15:06 codeine AdvReac Mild NAUSEA AND Verified 01/21/19 15:06 VOMITING metformin AdvReac Mild NAUSEA AND Verified 01/21/19 15:06 VOMITING doxycycline AdvReac Unknown GI SYMPTOMS Verified 01/21/19 15:06 saccharin AdvReac Unknown diarrhea Verified 01/21/19 15:06 Past Med/Surg History Family History Grandmother Lung cancer Father Lung disease Mother Cancer Hypertension Unknown Colon cancer Son Anxiety Depression Kidney stones Alcohol abuse Social History Preferred Language: Algerian Communication Ability: Effective 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 and A total of 10 systems reviewed and were otherwise negative Physical Exam Vital Signs Vital Signs - 24 hr 01/21/19 14:40 01/21/19 15:16 Temperature 36.7 C Temperature Source Oral Sepsis Recent Fever Within 48 Hours No Sepsis New/Unexplained Change in Mental Status No Sepsis Action Taken by Nursing No Action Required Pulse Rate 94 H Pulse Rate [Finger] 85 Respiratory Rate 20 18 Respiratory Effort / Characteristics Spontaneous Blood Pressure 143/49 H Blood Pressure [Right Arm] 154/92 H Blood Pressure Mean 80 Blood Pressure Mean [Right Arm] 112 Pulse Oximetry 97 96 Oxygen Delivery Method Room Air Room Air Vital signs reviewed. General: Elderly, chronically ill-appearing 78 year old female, in no significant distress. HEENT: No scleral icterus, PERRLA, neck supple. Atraumatic. Cardiovascular: Regular rate and rhythm, no extra sounds. Pulmonary: Clear to auscultation bilaterally, normal work of breathing. Abdomen: Soft, nontender, nondistended, positive bowel sounds. Musculoskeletal: Atraumatic, no peripheral edema. Tenderness to palpation over the mid to low lumbar spine with no CVA tenderness bilaterally. Neurologic: Patient awake alert and oriented x 3, full strength in all 4 extremities. Cranial nerves 2 through 12 grossly intact. Skin: Warm, dry, no rash Course 1351: Past medical records reviewed. The patient was evaluated in room A11B, and a complete history and physical examination were performed. Administered Medications Acetaminophen (Tylenol) 650 mg PO Q4H PRN PRN Reason: pain/fever Stop: 02/20/19 20:02 Last Admin: 01/22/19 12:48 Dose: 650 mg Documented by: [id number] Cetirizine HCl (Zyrtec) 10 mg PO DAILY [facility] Stop: 02/21/19 08:59 Last Admin: 01/22/19 07:58 Dose: 10 mg Documented by: [id number] Diclofenac Sodium (Voltaren 1% Top) 1 appln EXT QID [facility] Stop: 02/21/19 17:09 Last Admin: 01/22/19 17:37 Dose: 1 appln Documented by: [id number] Insulin Aspart (Novolog Flexpen) 0 units SC ACHS [facility] Stop: 02/21/19 11:29 Last Admin: 01/22/19 12:51 Dose: 6 units Documented by: [id number] Cosigned by: [id number] Levothyroxine Sodium (Synthroid) 100 mcg PO DAILYBB [facility] Stop: 02/21/19 06:29 Last Admin: 01/22/19 06:27 Dose: 100 mcg Documented by: [id number] Lisinopril (Zestril) 20 mg PO DAILY [facility] Stop: 02/21/19 08:59 Last Admin: 01/22/19 07:58 Dose: 20 mg Documented by: [id number] Oxycodone HCl (Roxicodone Immediate Rel) 5 mg PO Q6H PRN PRN Reason: Severe Pain Stop: 02/05/19 17:05 Last Admin: 01/22/19 17:37 Dose: 5 mg Documented by: [id number] Pantoprazole Sodium (Protonix) 40 mg PO DAILY [facility] Stop: 02/21/19 08:59 Last Admin: 01/22/19 07:57 Dose: 40 mg Documented by: [id number] Rosuvastatin Calcium (Crestor) 10 mg PO DAILY [facility] Stop: 02/21/19 08:59 Last Admin: 01/22/19 07:57 Dose: 10 mg Documented by: [id number] Venlafaxine HCl (Effexor Extended Release) 75 mg PO TID [facility] Stop: 02/20/19 20:59 Last Admin: 01/22/19 12:49 Dose: 75 mg Documented by: [id number] Admin: 01/22/19 07:57 Dose: 75 mg Documented by: [id number] Admin: 01/21/19 21:29 Dose: 75 mg Documented by: [id number] Discontinued Medications Fentanyl Citrate (Fentanyl Citrate) 25 mcg IV NOW STA Stop: 01/21/19 16:56 Last Admin: 01/21/19 16:58 Dose: 25 mcg Documented by: [id number] Fentanyl Citrate (Fentanyl Citrate) Confirm Administered Dose 100 mcg .ROUTE .STK-MED ONE Stop: 01/21/19 16:58 Last Admin: 01/21/19 17:13 Dose: Not Given Documented by: [id number] Gadobutrol (Gadavist 65ml) 9 ml IV ONCE PRN PRN Reason: Interaction Checking Stop: 01/25/19 17:23 Last Admin: 01/21/19 17:24 Dose: 9 ml Documented by: [id number] Hydromorphone HCl (Dilaudid) 0.5 mg IV NOW STA Stop: 01/21/19 15:56 Last Admin: 01/21/19 16:07 Dose: 0.5 mg Documented by: [id number] Sodium Chloride (Nss) 500 mls @ 150 mls/hr IV .Q3H20M [facility] Stop: 01/21/19 18:04 Last Infusion: 01/21/19 18:22 Dose: 0 mls/hr Documented by: [id number] Admin: 01/21/19 15:19 Dose: 150 mls/hr Documented by: [id number] Sodium Chloride (Nss 1000ml) 1,000 mls @ 100 mls/hr IV .Q10H [facility] Stop: 02/20/19 15:44 Last Infusion: 01/21/19 20:23 Dose: 0 mls/hr Documented by: [id number] Admin: 01/21/19 17:45 Dose: 100 mls/hr Documented by: [id number] Lorazepam (Ativan) 1 mg in 2 mls @ 2 mls/min IV NOW STA Stop: 01/21/19 16:56 Last Admin: 01/21/19 16:58 Dose: 2 mls/min Documented by: [id number] Insulin Aspart (Novolog Flexpen) 0 units SC ACHS [facility] Stop: 01/21/19 23:59 Last Admin: 01/21/19 21:30 Dose: 8 units Documented by: [id number] Cosigned by: [id number] Insulin Aspart (Novolog Flexpen) 0 units SC Q6 [facility] Stop: 02/21/19 00:00 Last Admin: 01/22/19 06:26 Dose: 1 units Documented by: [id number] Cosigned by: [id number] Admin: 01/22/19 00:09 Dose: 2 units Documented by: [id number] Cosigned by: [id number] Insulin Glargine (Lantus Solostar Pen) 39 units SC TODAY@2100 ONE Stop: 01/21/19 21:01 Last Admin: 01/21/19 21:31 Dose: 39 units Documented by: [id number] Cosigned by: [id number] Insulin Glargine (Lantus Solostar Pen) 40 units SC NOW STA; Protocol Stop: 01/22/19 15:43 Last Admin: 01/22/19 16:14 Dose: 40 units Documented by: [id number] Cosigned by: [id number] Lorazepam (Ativan) Confirm Administered Dose 2 mg .ROUTE .STK-MED ONE Stop: 01/21/19 16:58 Last Admin: 01/21/19 17:13 Dose: Not Given Documented by: [id number] Ondansetron HCl (Zofran) 4 mg IV NOW STA Stop: 01/21/19 15:56 Last Admin: 01/21/19 16:07 Dose: 4 mg Documented by: [id number] Ondansetron HCl (Zofran) 4 mg IV NOW STA Stop: 01/21/19 16:56 Last Admin: 01/21/19 16:58 Dose: 4 mg Documented by: [id number] Medical Decision Making Differential Diagnosis Differential: Musculoskeletal, Disc Herniation, Fracture, Cord Compression, Discitis, Infectious, Aortic Pathology, Renal Colic, UTI/Pyelonephritis, Acute Exacerbation of Chronic Pain, Sciatica, Cauda Equina, amongst other pathologies entertained. Medical Records Attestation: I reviewed the patient's medical records. Home Medications Current Medication List: was personally reviewed by me Laboratory Data Attestation: I reviewed the patient's lab results. Result diagrams: 01/22/19 07:20 01/22/19 07:20 Lab Results 01/21/19 01/21/19 01/21/19 Range/Units 15:06 15:06 15:06 WBC 17.36 H (4.8-10.8) K/uL RBC 5.56 H (4.2-5.4) M/uL Hgb 17.4 H (12.0-16.0) g/dL Hct 50.4 H (37-47) % MCV 90.6 (80-100) fL MCH 31.3 (25-34) pg MCHC 34.5 (32-36) g/dL RDW Std Deviation 48.3 H (36.4-46.3) fL RDW Coeff of [place] 14.4 (11.5-14.5) % Plt Count 281 (130-400) K/uL MPV 11.6 H (7.4-10.4) fL Immature Gran % (Auto) 0.3 % Neut % (Auto) 54.0 % Lymph % (Auto) 38.5 % [place] % (Auto) 4.9 % Eos % (Auto) 2.1 % Baso % (Auto) 0.2 % Immature Gran # (Auto) 0.06 H (0.00-0.02) K/uL Neut # (Auto) 9.38 H (1.4-6.5) K/uL Lymph # (Auto) 6.68 H (1.2-3.4) K/uL [place] # (Auto) 0.85 H (0.11-0.59) K/uL Eos # (Auto) 0.36 (0-0.5) K/uL Baso # (Auto) 0.03 (0-0.2) K/uL ESR 19 (0-21) mm/hr Sodium 142 (136-145) mmol/L Potassium 4.5 (3.5-5.1) mmol/L Chloride 103 (98-107) mmol/L Carbon Dioxide 32 (21-32) mmol/L Anion Gap 7.0 (3-11) BUN 15 (7-18) mg/dl Creatinine 1.39 H (0.6-1.2) mg/dl Est Cr Clr Drug Dosing 33.9 ml/min Est GFR ( Amer) 42.0 Est GFR (Non-Af Amer) 36.2 BUN/Creatinine Ratio 10.6 (10-20) Glucose 261 H (70-99) mg/dl Calcium 9.4 (8.5-10.1) mg/dl Total Bilirubin 0.6 (0.2-1) mg/dl AST 16 (15-37) U/L ALT 29 (12-78) U/L Alkaline Phosphatase 87 (45-117) U/L C-Reactive Protein (0-0.29) mg/dl Total Protein 7.8 (6.4-8.2) gm/dl Albumin 3.7 (3.4-5.0) gm/dl Globulin 4.1 H (2.5-4.0) gm/dl Albumin/Globulin Ratio 0.9 (0.9-2) Urine Color Urine Appearance (Clear) Urine pH (4.5-7.5) Ur Specific [place] (1.000-1.030) Urine Protein (Negative) Urine Glucose (UA) (Negative) Urine Ketones (Negative) Urine Blood (Negative) Urine Nitrite (Negative) Urine Bilirubin (Negative) Urine Urobilinogen (Negative) Ur Leukocyte Esterase (Negative) 01/21/19 01/21/19 Range/Units 15:06 17:55 WBC (4.8-10.8) K/uL RBC (4.2-5.4) M/uL Hgb (12.0-16.0) g/dL Hct (37-47) % MCV (80-100) fL MCH (25-34) pg MCHC (32-36) g/dL RDW Std Deviation (36.4-46.3) fL RDW Coeff of [place] (11.5-14.5) % Plt Count (130-400) K/uL MPV (7.4-10.4) fL Immature Gran % (Auto) % Neut % (Auto) % Lymph % (Auto) % [place] % (Auto) % Eos % (Auto) % Baso % (Auto) % Immature Gran # (Auto) (0.00-0.02) K/uL Neut # (Auto) (1.4-6.5) K/uL Lymph # (Auto) (1.2-3.4) K/uL [place] # (Auto) (0.11-0.59) K/uL Eos # (Auto) (0-0.5) K/uL Baso # (Auto) (0-0.2) K/uL ESR (0-21) mm/hr Sodium (136-145) mmol/L Potassium (3.5-5.1) mmol/L Chloride (98-107) mmol/L Carbon Dioxide (21-32) mmol/L Anion Gap (3-11) BUN (7-18) mg/dl Creatinine (0.6-1.2) mg/dl Est Cr Clr Drug Dosing ml/min Est GFR ( Amer) Est GFR (Non-Af Amer) BUN/Creatinine Ratio (10-20) Glucose (70-99) mg/dl Calcium (8.5-10.1) mg/dl Total Bilirubin (0.2-1) mg/dl AST (15-37) U/L ALT (12-78) U/L Alkaline Phosphatase (45-117) U/L C-Reactive Protein 0.34 H (0-0.29) mg/dl Total Protein (6.4-8.2) gm/dl Albumin (3.4-5.0) gm/dl Globulin (2.5-4.0) gm/dl Albumin/Globulin Ratio (0.9-2) Urine Color Yellow Urine Appearance Clear (Clear) Urine pH 5.5 (4.5-7.5) Ur Specific [place] 1.023 (1.000-1.030) Urine Protein Negative (Negative) Urine Glucose (UA) Trace H (Negative) Urine Ketones Negative (Negative) Urine Blood Negative (Negative) Urine Nitrite Negative (Negative) Urine Bilirubin Negative (Negative) Urine Urobilinogen Negative (Negative) Ur Leukocyte Esterase Negative (Negative) Blood Pressure Blood Pressure Findings: Elevated blood pressure Blood Pressure Disposition: Referred to patients primary care provider KATIE Rodrigues This patient was evaluated and appeared to be in some discomfort. She was sitting up at the bedside. Patient's physical examination is consistent with a low lumbar back tenderness. Laboratory work was obtained and the patient was medicated with IV Ativan prior to the MRI ordered. Laboratory work reveals a renal insufficiency with a creatinine clearance of 33. MRI of the lumbar spine with and without contrast was ordered as the patient has a presentation concerning for cauda equina. Urinalysis was obtained and is negative for infection. Laboratory work reveals only a very mild elevation of the sed rate and CRP. WBC is elevated however this is improved from her baseline. The patient did require additional IV Ativan and fentanyl to get through the MRI. On reevaluation she was once again sitting up at the bedside. She was informed of the findings. Dr. Ledesma of orthopedic spine surgery was consulted and requested internal medicine admission for further management and he will consult. Patient and are aware of the plan and agree. Dr. Eubanks of the hospitalist service was consulted for further management. Impression & Plan Central stenosis of spinal canal, Urinary bladder incontinence, Acute lumbar back pain Discharge Plan Visit Data *Final* Discharge Date/Time: 01/21/19 19:27 Chief Complaint: Back Injury/Pain Stated Complaint: SEVERE BACK PAIN ED Provider: Sammie Rosado Discharge Problem: Central stenosis of spinal canal, Urinary bladder incontinence, Acute lumbar back pain Patient Disposition: Admitted As Inpatient Discharge Instructions Interventions: ED Discharge Assessment Last Done: 01/21/19 19:27 Discharge Problem: Urinary bladder incontinence Qualifiers: Urinary Incontinence type: unspecified incontinence Qualified Code(s): R32 - Unspecified urinary incontinence Acute lumbar back pain Qualifiers: Back pain laterality: midline Sciatica presence: with sciatica Sciatica laterality: sciatica of left side Qualified Code(s): M54.42 - Lumbago with sciatica, left side The scribe's documentation has been prepared under my direction and personally reviewed by me in its entirety. I confirm that the note above accurately reflects all work, treatment, procedures, and medical decision making performed by me.
[2019-01-21] MEDS ORDERED: LORazepam 1 MG/2 ML VIAL IV STA (16:55)
[2019-01-21] MEDS ORDERED: fentaNYL citrate 100 MCG/2 ML VIAL IV STA (16:55)
[2019-01-21] MEDS ORDERED: LORazepam 2 MG/4 ML VIAL ONE (16:57)
[2019-01-21] MEDS ORDERED: fentaNYL citrate 100 MCG/2 ML VIAL ONE (16:57)
[2019-01-21] MEDS ORDERED: GADOBUTROL 65ML VIAL IV PRN (17:24)
--- NOTE | 2019-01-21 17:41 | Magnetic Resonance Report ---
MR lumbar spine wo/w con CLINICAL HISTORY: 78 years-old Female with cauda equina, incontinent of urine. Acute low back pain w ith urinary incontinence. Clinical suspicion for cauda equina syndrome. History of lymphoma and breas t cancer. COMPARISON: PET CT 09/23/2012 TECHNIQUE: Multiplanar, multi sequence MRI of the lumbar spine was performed both with and without th e use of 9.0 mL Gadavist FINDINGS: No gross abnormality identified on the large [id number] wafer fabrication technician localizer images. Right hemidiaphrag matic elevation is partially imaged. No aortic aneurysm or adenopathy. Moderately motion degraded exa m. Cortical thinning of the bilateral kidneys with nonspecific perinephric stranding. 7 mm T2 hyperin tense lesion of the inferior pole left kidney suggest probable cyst. No acute fracture, subluxation, significant bone marrow or soft tissue edema. Modic type I and II endplate degenerative changes at L1 -L2 and L2-L3. Additionally, there is mild enhancement of these levels which is also likely on a dege nerative basis. Small Schmorl's nodes are seen about the endplates at several levels. No definite philip dence of acute osteomyelitis/discitis no additional abnormal enhancement. T12-L1: Mild to moderate disc space narrowing with spondylitic spurring, circumferential annular dis c bulge and moderate facet arthrosis. Flattening of the ventral thecal sac without significant centra l canal or foraminal narrowing. L1-L2: Mild to moderate disc space narrowing with spondylitic spurring, circumferential annular disc bulge and moderate facet arthrosis. Flattening of the ventral thecal sac with mild to moderate centr al canal stenosis and mild inferior bilateral foraminal narrowing. L2-L3: Moderate disc space narrowing with spondylitic spurring, circumferential annular disc bulge a nd moderate facet arthrosis. AP dimension of the thecal sac measures 4.5 cm. Severe central canal erick nosis with mild to moderate left and mild right foraminal narrowing. L3-L4: No cystic and displaced narrowing. Spondylitic spurring with small circumferential annular di sc bulge, ligament of flavum thickening and moderate facet arthrosis. AP dimension of the thecal sac measures 7 mm. Moderate central canal with mild bilateral foraminal stenosis. L4-L5: Mild disc space narrowing with spondylitic spurring, circumferential annular disc bulge, mode rate to severe facet arthrosis with ligamentum flavum thickening. AP dimension of the thecal sac mercy ures 6 mm. Moderate to severe central canal with mild left and mild to moderate right foraminal narro wing. L5-S1: Mild to moderate disc space narrowing with circumferential annular disc bulge and left parace ntral/left lateral recess disc extrusion with abutment and mild posterior displacement of the left S1 nerve root. Mild central canal with moderate left lateral recess, mild to moderate right and moderat e left foraminal narrowing. IMPRESSION: 1. Moderately motion degraded exam. 2. Mild bone marrow edema and enhancement at the lung-L2 and L2-L3 levels is suggestive of Modic type I endplate degeneration. 3. Multilevel disc space narrowing with spondylitic spurring and facet arthrosis as detailed above re sults in multilevel central canal and foraminal narrowing. 4. Severe central canal stenosis at L2-L3 with moderate to severe central canal stenosis at L4-L5. The above report was generated using voice recognition software. It may contain grammatical, syntax o r spelling errors. Electronically signed by: Kosta Cortez M.D. 01/21/2019 5:39 PM
[2019-01-21 18:14] LABS: Appearance Urine Clear (Clear); Bilirubin Urine Negative (Negative); Blood Urine Negative (Negative); Color Urine Yellow; Glucose Urine UA Trace (Negative); Ketones Urine Negative (Negative); Leukocyte Esterase Urine Negative (Negative); Nitrite Urine Negative (Negative); Protein Urine Negative (Negative); Specific Gravity Urine 1.023 (1.000-1.030); Urobilinogen Urine Negative (Negative); pH Urine 5.5 (4.5-7.5)
--- NOTE | 2019-01-21 19:18 | History & Physical Report ---
Date of Service January 21, 2019 Assessment & Plan (1) Central stenosis of spinal canal: MRI lumbar spine on 01/20 showed severe central canal stenosis at L2-L3 with moderate to severe central canal stenosis at L4-L5. - Orthopedic consult - Dr. Ledesma informed of patient in the ED; will see t omorrow - NPO @ midnight - Neuro-check Q4h overnight - Hold ASA (2) Urinary bladder incontinence: Presumed due to spinal stenosis, though she denies saddle anesthesia, bowel incontinence, or other GI/ nerve impingement symptoms. UA does not show UTI. A1c is 9.3%, so hyperglycemia and overflow incontinence could be contributing. - Bladder scan - Control blood sugars - Orthopedic plan as above (3) Diabetes mellitus, type 2: A1c was 9.3% in 11/2018. - Hold home 70/30 insulin - Sliding scale insulin - Glycemic pharmacist consult (4) Hypertension: BP acceptable in the ED at 155/90. - Continue home meds (5) Asthma: No baseline lung issues per patient, but asthma listed on the chart. - DuoNebs PRN (6) Hypothyroidism: TSH was 0.9 in 11/2018. No signs/symptoms of hypo-/hyperthyroidism. - Continue home Synthroid 100 mcg (7) Sleep related hypoxia: Reports that she has had a CPAP in the past, but was taken away because she didn't use it. Now told to again use it. - Provide hospital CPAP (8) Chronic kidney disease, stage 3: Baseline Cr ~1.3-1.4, eGFR ~35-40. - Presently at baseline. - Monitor Cr; renally-adjust meds (9) CLL (chronic lymphocytic leukemia): No signs of infection. WBC was 17.4 on admission. - Monitor (10) DVT prophylaxis: SCDs - Possible surgery in next 1-2 days History of Present Illness Primary Care Provider: Sumit De La Cruz MD 78yo F w/ hx of DM, HTN, and hypothyroidism who presents with concern for acute lumbar nerve impingement. The patient reports that normally she does not have any urinary incontinence at all. On Sunday into Sunday, she noted increasing lower lumbar back pain that corresponded to episodes of urinary incontinence. She reports that at least 3 times on Sunday, Sunday, and Sunday, she had flow incontinence of urine. She also reports that her left leg feels weak, though she reports that her left knee has been increasingly painful. She also notes that she feels she lists to one side and falls to the left. Finally, she notes no numbness of the legs or any saddle anesthesia. Otherwise, she is in her normal state of health with no fevers, chills, sweats, no shortness of breath, no cough, no chest pain, or other problems. Allergies Allergy/AdvReac Type Severity Reaction Status Date / Time adhesive Allergy Intermediate BLISTERS Verified 01/21/19 15:06 clopidogrel Allergy Unknown GI UPSET Verified 01/21/19 15:06 liraglutide Allergy Unknown GI UPSET Verified 01/21/19 15:06 phenol Allergy Unknown GI UPSET Verified 01/21/19 15:06 propylene glycol Allergy Unknown GI UPSET Verified 01/21/19 15:06 amitriptyline AdvReac Severe HALLUCINATI Verified 01/21/19 15:06 ONS atorvastatin AdvReac Intermediate JOINT PAIN Verified 01/21/19 15:06 cephalexin AdvReac Intermediate N/V Verified 01/21/19 15:06 pioglitazone AdvReac Intermediate SEVERE Verified 01/21/19 15:06 FATIGUE tramadol AdvReac Intermediate N/V Verified 01/21/19 15:06 codeine AdvReac Mild NAUSEA AND Verified 01/21/19 15:06 VOMITING metformin AdvReac Mild NAUSEA AND Verified 01/21/19 15:06 VOMITING doxycycline AdvReac Unknown GI SYMPTOMS Verified 01/21/19 15:06 saccharin AdvReac Unknown diarrhea Verified 01/21/19 15:06 Home Medications Home Medications Medication Instructions Recorded Confirmed Type omeprazole 20 mg PO DAILY #0 11/28/10 01/21/19 History lorazepam 0.5 mg PO TID PRN #0 tab 11/07/16 01/21/19 History cholecalciferol (vitamin D3) 2,000 unit PO DAILY #0 01/02/17 01/21/19 History levothyroxine 100 mcg PO DAILY #0 01/02/17 01/21/19 History PreserVision Lutein 1 cap PO DAILY 09/04/18 01/21/19 History insulin aspar prot-insulin aspart 56 units SQ BID #15 ml 12/03/18 01/21/19 Rx 100 unit/mL (70-30) subcutaneous pen rosuvastatin 10 mg tablet 10 mg PO DAILY #30 tab 12/03/18 01/21/19 Rx cetirizine 10 mg capsule 10 mg PO DAILY #30 cap 01/14/19 01/21/19 Rx hydroxyzine HCl 10 mg tablet 10 mg PO HS PRN #30 tab 01/14/19 01/21/19 Rx lisinopril 20 mg tablet 20 mg PO DAILY #90 tab 01/16/19 01/21/19 Rx aspirin 81 mg PO DAILY 01/21/19 01/21/19 History venlafaxine 150 mg PO BID 01/21/19 01/21/19 History Past Med/Surg History Medical History Vitamin D deficiency (Acute) Vertigo (Acute) Urinary incontinence (Acute) TMJ syndrome (Acute) Sleep related hypoxia (Acute) Short-term memory loss (Acute) Sensorineural hearing loss (SNHL) of both ears (Acute) Seborrheic keratosis (Acute) Renal insufficiency (Acute) Otitis externa (Acute) Osteopenia (Acute) Obesity (Acute) Nonalcoholic steatohepatitis (Acute) Nicotine dependence (Acute) Laryngopharyngeal reflux (Acute) Internal hemorrhoids (Acute) Hyperplastic colon polyp (Acute) Hyperlipidemia (Acute) Gastroesophageal reflux disease (Acute) Gait disturbance (Acute) Fatty liver (Acute) Diverticulosis (Acute) Difficulty reading due to visual problem (Acute) Diabetic nephropathy (Acute) Diabetes mellitus type 2, uncontrolled (Acute) Chronic obstructive pulmonary disease (Acute) Chronic kidney disease, stage 3 (Acute) Carpal tunnel syndrome (Acute) Carotid artery stenosis (Acute) Breast cancer (Acute) Benign neoplasm of large intestine (Acute) BMI 38.0-38.9,adult (Acute) Atrial fib/flutter, transient (Acute) Atrial aneurysm (Acute) Asymptomatic hyperuricemia (Acute) Arthritis (Acute) Aneurysm, cerebral, nonruptured (Acute) Allergic rhinitis (Acute) Acromioclavicular joint arthritis (Acute) Aneurysm (Acute) "in back of my head" Anxiety (Acute) Asthma (Acute) Cancer (Acute) breast cancer Deep vein thrombosis (Acute) Depression (Acute) Diabetes mellitus, type 2 (Acute) Hypertension (Acute) Hypothyroidism (Acute) On home oxygen therapy (Acute) Osteoarthritis (Acute) bilateral knees, legs, hands Sleep apnea (Acute) Surgical History History of appendectomy (Acute) History of colonoscopy (Acute) History of hysterectomy (Acute) History of mastectomy (Acute) bilateral History of total knee replacement (Acute) left History of brain surgery History of cataract surgery History of parathyroid surgery History of shoulder surgery Family History Grandmother Lung cancer Father Lung disease Mother Cancer Hypertension Unknown Colon cancer Son Anxiety Depression Kidney stones Alcohol abuse Social History Preferred Language: Urdu Communication Ability: Effective Food Order Expediter Required: No Beliefs That Will Affect Care: None Current Living Situation: Spouse Feels Safe at Home: Yes Smoking Status: Current every day smoker Tobacco Type: cigarettes ; Cigarettes Per Day: 2 ; Hx Alcohol Use: No Hx Substance Use: No Review of Systems Review of Systems: All systems reviewed & are unremarkable except as noted in HPI & below Physical Exam Constitutional: WD/WN, vitals as above Eyes: EOM intact bilaterally; no conjunctival abnormality ENMT: external ear and nose normal, oropharynx normal Neck: trachea midline, no thyromegaly normal visual inspection Respiratory: normal respiratory effort, lungs clear to auscultation no respiratory distress Cardiovascular: RRR, no murmur, no edema Gastrointestinal (Abdomen): Inspection/Auscultation: abdomen normal to inspection; abdomen not distended Musculoskeletal: no cyanosis or clubbing, extremities motor strength 5/5 Skin: no rashes, warm and dry Neurologic: moves all extremities and awake; no focal motor deficits and not confused Motor/Sensory: no sensory deficit Psychiatric: Orientation: alert, oriented to person and cooperative Results & Data Vital Signs (Past 12 Hours) Vital Signs Temp Pulse Pulse Resp BP BP Pulse Ox 01/21/19 15:16 85 18 154/92 H 96 01/21/19 14:40 36.7 C 94 H 20 143/49 H 97 PG Care Time/CCT Total # of Minutes Spent Total Time Spent with Patient: Total time spent is greater than 50% in coordination of care (as documented) at patient's floor/unit and/or counseling patient: (1) Urinary bladder incontinence Urinary Incontinence type: unspecified incontinence Qualified Code(s): R32 - Unspecified urinary incontinence
[2019-01-21] MEDS ORDERED: ONDANSETRON INJ 2 MG/ML 2 ML VIAL IV PRN (20:03)
[2019-01-21] MEDS ORDERED: hydrOXYzine HCl 10 MG TAB PO PRN (20:03)
[2019-01-21] MEDS ORDERED: GLUCOSE 40% GEL 15 GM TUBE PO PRN (20:03)
[2019-01-21] MEDS ORDERED: GLUCAGON FOR INJ 1 MG VIAL SQ PRN (20:03)
[2019-01-21] MEDS ORDERED: LORazepam 0.5 MG TAB PO PRN (20:03)
[2019-01-21] MEDS ORDERED: DEXTROSE 50% 50 ML SYRINGE IV PRN (20:03)
[2019-01-21] MEDS ORDERED: GLUCOSE 10 TABS/TUBE PO PRN (20:03)
[2019-01-21] MEDS ORDERED: CARBOHYDRATES FOR HYPOGLYCEMIA PO PRN (20:03)
[2019-01-21] MEDS ORDERED: ACETAMINOPHEN 325 MG TAB PO PRN (20:03)
[2019-01-21] MEDS ORDERED: ALBUT/IPRATROP 3MG/0.5MG NEB 3 ML VIAL NEB PRN (20:03)
[2019-01-21] MEDS ORDERED: PHARMACY GLYCEMIC MGMT CONSULT PRN (20:18)
[2019-01-21] MEDS ORDERED: INSULIN ASPART 100 UNITS/ML 3 ML PEN SC SCH (21:00)
[2019-01-21] MEDS ORDERED: INSULIN GLARGINE SOLOSTAR 100 UNITS/ML 3 ML PEN SC ONE (21:00)
[2019-01-21] MEDS: VENLAFAXINE HCL XR 75 MG CAPXR PO SCH (21:29)
[2019-01-22] MEDS: INSULIN ASPART 100 UNITS/ML 3 ML PEN SC SCH ×5 (00:09→21:14)
[2019-01-22] MEDS: LEVOTHYROXINE SODIUM 100 MCG TABLET PO SCH (06:27)
[2019-01-22 07:36] LABS: Hematocrit (blood only) 47.5 % (37-47); Hemoglobin 16.3 g/dL (12.0-16.0); Mean Corpuscular Hemoglobin 31.4 pg (25-34); Mean Corpuscular Hgb Conc 34.3 g/dL (32-36); Mean Corpuscular Volume 91.5 fL (80-100); Mean Platelet Volume 11.5 fL (7.4-10.4); Platelet Count 243 K/uL (130-400); RDW Coefficient of Variation 14.8 % (11.5-14.5); Red Blood Count 5.19 M/uL (4.2-5.4); White Blood Count 16.06 K/uL (4.8-10.8)
[2019-01-22] MEDS: PANTOprazole 40 MG TAB PO SCH (07:57)
[2019-01-22] MEDS: ROSUVASTATIN CALCIUM 10 MG TAB PO SCH (07:57)
[2019-01-22] MEDS: VENLAFAXINE HCL XR 75 MG CAPXR PO SCH ×3 (07:57→21:05)
[2019-01-22] MEDS: LISINOPRIL 20 MG TAB PO SCH (07:58)
[2019-01-22] MEDS: CETIRIZINE HCL 10 MG TABLET PO SCH (07:58)
[2019-01-22 08:03] LABS: Estimated Average Glucose 217 mg/dl; Hemoglobin A1C 9.2 % (4.5-5.6)
[2019-01-22 08:08] LABS: Calcium 9.1 mg/dl (8.5-10.1); Est GFR (African American) 41.3; Est GFR (Non-African American) 35.6; Magnesium 1.8 mg/dl (1.8-2.4); Potassium 4.2 mmol/L (3.5-5.1)
[2019-01-22] MEDS ORDERED: Nursing to Pharmacy Communication ONE (10:59)
--- NOTE | 2019-01-22 14:34 | Orthopedic Consultation ---
Date of Consultation January 22, 2019 Assessment & Plan (1) Central stenosis of spinal canal: Plan at this time I do not feel there is any need for surgical intervention. I did discuss with patient at length the findings on MRI. She does have multilevel lumbar spondylosis with spinal stenosis. However her current presentation is not neurogenic in nature would not recommend any surgical intervention. She may be best served with a consultation with interventional pain management. Follow-up as needed. Present on Admission?: Yes History of Present Illness Reason for Consultation: Back pain Attending Physician: Joann Ardon MD History of Present Illness This is a very pleasant 78-year-old female who presents with several days of back pain. She denies any specific trauma fall or event that contributed to her symptoms. She specifically denies any lower extremity pain. She does have some left knee pain due to some left knee arthritis. She denies any numbness or tingling or loss of bowel bladder control. Allergies Allergy/AdvReac Type Severity Reaction Status Date / Time adhesive Allergy Intermediate BLISTERS Verified 01/21/19 15:06 clopidogrel Allergy Unknown GI UPSET Verified 01/21/19 15:06 liraglutide Allergy Unknown GI UPSET Verified 01/21/19 15:06 phenol Allergy Unknown GI UPSET Verified 01/21/19 15:06 propylene glycol Allergy Unknown GI UPSET Verified 01/21/19 15:06 amitriptyline AdvReac Severe HALLUCINATI Verified 01/21/19 15:06 ONS atorvastatin AdvReac Intermediate JOINT PAIN Verified 01/21/19 15:06 cephalexin AdvReac Intermediate N/V Verified 01/21/19 15:06 pioglitazone AdvReac Intermediate SEVERE Verified 01/21/19 15:06 FATIGUE tramadol AdvReac Intermediate N/V Verified 01/21/19 15:06 codeine AdvReac Mild NAUSEA AND Verified 01/21/19 15:06 VOMITING metformin AdvReac Mild NAUSEA AND Verified 01/21/19 15:06 VOMITING doxycycline AdvReac Unknown GI SYMPTOMS Verified 01/21/19 15:06 saccharin AdvReac Unknown diarrhea Verified 01/21/19 15:06 Home Medications Home Medications Medication Instructions Recorded Confirmed Type omeprazole 20 mg PO DAILY #0 11/28/10 01/21/19 History lorazepam 0.5 mg PO TID PRN #0 tab 11/07/16 01/21/19 History cholecalciferol (vitamin D3) 2,000 unit PO DAILY #0 01/02/17 01/21/19 History levothyroxine 100 mcg PO DAILY #0 01/02/17 01/21/19 History PreserVision Lutein 1 cap PO DAILY 09/04/18 01/21/19 History insulin aspar prot-insulin aspart 56 units SQ BID #15 ml 12/03/18 01/21/19 Rx 100 unit/mL (70-30) subcutaneous pen rosuvastatin 10 mg tablet 10 mg PO DAILY #30 tab 12/03/18 01/21/19 Rx cetirizine 10 mg capsule 10 mg PO DAILY #30 cap 01/14/19 01/21/19 Rx hydroxyzine HCl 10 mg tablet 10 mg PO HS PRN #30 tab 01/14/19 01/21/19 Rx lisinopril 20 mg tablet 20 mg PO DAILY #90 tab 01/16/19 01/21/19 Rx aspirin 81 mg PO DAILY 01/21/19 01/21/19 History venlafaxine 150 mg PO BID 01/21/19 01/21/19 History Patient History Family History Grandmother Lung cancer Father Lung disease Mother Cancer Hypertension Unknown Colon cancer Son Anxiety Depression Kidney stones Alcohol abuse Social History Preferred Language: Mohawk Communication Ability: Effective Cable Splicer Required: No Beliefs That Will Affect Care: None marital status: Current Living Situation: Spouse Current Living Situation Comment: Home Feels Safe at Home: Yes Smoking Status: Light tobacco smoker Tobacco Type: cigarettes ; Cigarettes Per Day: 1-2 ; Second Hand Exposure: Yes ; Hx Alcohol Use: Yes Hx Substance Use: No Physical Exam Physical Exam: On exam there are no abnormal skin markings to inspection lumbar spine. Relatively nontender. She is good strength testing lower extremity. Results & Data Vital Signs (Past 12 Hours) Vital Signs Temp Pulse Resp BP Pulse Ox 01/22/19 07:30 37.0 C 87 18 134/68 90
[2019-01-22] MEDS ORDERED: INSULIN GLARGINE SOLOSTAR 100 UNITS/ML 3 ML PEN SC STA (15:42)
--- NOTE | 2019-01-22 16:03 | Pharmacy Report ---
Glycemic Control Consultation - Date of Service January 22, 2019 - Scope Scope: Glycemic Pharmacist consulted for glycemic control and to write orders per [facility] inpatient glycemic control protocol - Objective Weight: 90.6 kg Accuchecks BSG (last 24hrs): 01/21/19 01/21/19 01/22/19 20:32 23:56 06:16 Glucose POC Glucose 186 H 158 H 155 H 01/22/19 01/22/19 07:20 12:27 Glucose 181 H POC Glucose 176 H Laboratory Data (last 24hrs): 01/22/19 07:20 Potassium 4.2 Carbon Dioxide 30 Anion Gap 5.0 Creatinine 1.41 H Est Cr Clr Drug Dosing 33.0 HbA1c: Hemoglobin A1c 9.2 % (4.5-5.6) H 01/22/19 07:20 - Recent Pertinent Medications Outpatient Anti-diabetic Regimen: * Novolog 70/30 56 units SC BID * A1c = 9.2 % on 01/22/19 The patient is currently receiving: * Basal insulin: Lantus 39 units SC x1 01/21 PM * Correctional Insulin: Novolog Correction per scale ACHS Goal Range: Low 110 mg/dL - High 140 mg/dL Correction Factor: 15 mg/dL/unit * Prandial insulin: Per carb ratio of 1 unit per 6 grams CHO consumed Risk Factors for Insulin Resistance: * Recent Surgery: no need for surgical intervention per Dr. Ledesma * Diet: NPO this AM to T2DM - Assessment & Plan Assessment & Plan: ASSESSMENT: * 78 yo F admitted with spinal stenosis (not requiring surgical intervention) * Patient has sub-optimal control of T2DM as outpatient based on HbA1c of 9.2% and receives a total of 112 units per day (as Novolog 70/30, split BID) * Will use total daily dose of 112 units to estimate inpatient needs but will convert to Lantus/Novolog * Estimated Lantus dose - 28 units BID. Outpatient NPH dose provides ~ 39 units BID. Will use Lantus and scale based on BSG. * Will also use this outpatient dose to estimate Novolog parameters, but will loosen CHO ratio slightly as response to insulin as an inpatient has not been established at this time PLAN FOR INPATIENT GLYCEMIC CONTROL: * Basal insulin: Lantus BID based on BSG * 20 units for BSG less than 140 mg/dL * 30 units for BSG 140-180 mg/dL * 40 units for BSG greater than 180 mg/dL * Bolus insulin * NovoLog per scale ACHS or Q6hrs while NPO * Goal Range: Low 110 mg/dL - High 140 mg/dL * Correction Factor: 15 mg/dL/unit * Nutritional / Prandial insulin per carb ratio of 1 unit per 6 grams CHO consumed * Please note that the plan above was derived based on current level of insulin resistance and hospital stress. These recommendations are appropriate for inpatient admission only. Plan of care upon discharge will need to be reassessed to avoid potential outpatient hypo/hyperglycemia. Thank you.
--- NOTE | 2019-01-22 17:04 | Hospitalist Progress Note ---
Date of Service January 22, 2019 Assessment & Plan (1) Central stenosis of spinal canal: MRI lumbar spine on 01/20 showed severe central canal stenosis at L2-L3 with moderate to severe central canal stenosis at L4-L5. - Orthopedic consult - Dr. Ledesma saw pt and recommends NO SURGERY, and Pain Management Does NOT have cauda equina -has good strength in LEs, is ambulating to the bathroom Simply has severe LBP causing difficulty with ambulation in setting of an already painful left knee -PT/OT consults placed, will see if needs rehab -add oxycodone prn severe pain, continue APPA prn mild pain, add ativan prn muscle spasm -add Voltaren gel qid (2) Urinary bladder incontinence: Now resolved, unclear if was from spinal issues, but does NOT have Cauda Equina UA does not show UTI. HgbA1c is 9.3%, so hyperglycemia and overflow incontinence could be contributing. observe for return (3) Diabetes mellitus, type 2: A1c was 9.3% in 11/2018. - Glycemic pharmacist consult placed--> continue basal bolus regimen (4) Hypertension: BP acceptable - Continue home lisinopril (5) Asthma: No baseline lung issues per patient, but asthma listed on the chart. - DuoNebs PRN (6) Hypothyroidism: TSH was 0.9 in 11/2018. No signs/symptoms of hypo-/hyperthyroidism. - Continue home Synthroid 100 mcg (7) Sleep related hypoxia: Reports that she has had a CPAP in the past, but was taken away because she didn't use it (8) Chronic kidney disease, stage 3: Baseline Cr ~1.3-1.4, eGFR ~35-40. - Presently at baseline. - Monitor Cr; renally-adjust meds (9) CLL (chronic lymphocytic leukemia): No signs of infection. WBC was 17.4 on admission. - Monitor (10) DVT prophylaxis: SCDs Dispo-remain hospitalized, but most likely medically stable for discharge tomorrow Subjective Feeling 7/10 pain in lower back in the midline that radiates to the left. No radiation of pain down legs. Does have some knee pain chronically. No further urinary incontinence. No stool/bowel issues. No numbness/tingling in LEs. Review of Systems Review of Systems: All systems reviewed & are unremarkable except as noted in HPI & below Physical Exam Constitutional: WD/WN, vitals as above + obese Eyes: + anicteric sclerae Neck: trachea midline, no thyromegaly Respiratory: normal respiratory effort, lungs clear to auscultation Cardiovascular: RRR, no murmur, no edema Gastrointestinal (Abdomen): normal bowel sounds, soft, nontender, no hepatosplenomegaly Musculoskeletal: Spine: lumbar spine normal to inspection, + pain with thoraco-lumbar ROM and + lumbar spinal tenderness (and +TTP in left lower back into buttock); no cervical spinal tenderness, no thoracic spinal tenderness and straight leg raise negative bilaterally Extremities: extremities normal to inspection; no cyanosis and no clubbing Knee: + knee abnormal to inspection (TKA scar over left knee); no skin erythema Skin: no rashes, warm and dry Neurologic: deep tendon reflexes 2+ bilaterally (in LEs bilat), moves all extremities and awake; no focal motor deficits (5/5 strength throughout LEs bilat) Motor/Sensory: no sensory deficit (sensation intact to lt touch bilat LEs) Psychiatric: A+Ox3, euthymic affect Results & Data Vital Signs (Past 12 Hours) Vital Signs Temp Pulse Pulse Resp BP Pulse Ox 01/22/19 15:19 37.1 C 89 17 119/74 92 01/22/19 07:30 37.0 C 87 18 134/68 90 Laboratory Results 01/22/19 01/22/19 01/22/19 Range/Units 20:43 18:39 12:27 WBC (4.8-10.8) K/uL RBC (4.2-5.4) M/uL Hgb (12.0-16.0) g/dL Hct (37-47) % MCV (80-100) fL MCH (25-34) pg MCHC (32-36) g/dL RDW Std Deviation (36.4-46.3) fL RDW Coeff of [place] (11.5-14.5) % Plt Count (130-400) K/uL MPV (7.4-10.4) fL Sodium (136-145) mmol/L Potassium (3.5-5.1) mmol/L Chloride (98-107) mmol/L Carbon Dioxide (21-32) mmol/L Anion Gap (3-11) BUN (7-18) mg/dl Creatinine (0.6-1.2) mg/dl Est Cr Clr Drug Dosing ml/min Est GFR ( Amer) Est GFR (Non-Af Amer) BUN/Creatinine Ratio (10-20) Glucose (70-99) mg/dl POC Glucose 195 H 225 H 176 H (70-99) Estimat Average Glucose mg/dl Hemoglobin A1c (4.5-5.6) % Calcium (8.5-10.1) mg/dl Magnesium (1.8-2.4) mg/dl 01/22/19 01/22/19 01/22/19 Range/Units 07:20 07:20 07:20 WBC 16.06 H (4.8-10.8) K/uL RBC 5.19 (4.2-5.4) M/uL Hgb 16.3 H (12.0-16.0) g/dL Hct 47.5 H (37-47) % MCV 91.5 (80-100) fL MCH 31.4 (25-34) pg MCHC 34.3 (32-36) g/dL RDW Std Deviation 50.0 H (36.4-46.3) fL RDW Coeff of [place] 14.8 H (11.5-14.5) % Plt Count 243 (130-400) K/uL MPV 11.5 H (7.4-10.4) fL Sodium 142 (136-145) mmol/L Potassium 4.2 (3.5-5.1) mmol/L Chloride 107 (98-107) mmol/L Carbon Dioxide 30 (21-32) mmol/L Anion Gap 5.0 (3-11) BUN 17 (7-18) mg/dl Creatinine 1.41 H (0.6-1.2) mg/dl Est Cr Clr Drug Dosing 33.0 ml/min Est GFR ( Amer) 41.3 Est GFR (Non-Af Amer) 35.6 BUN/Creatinine Ratio 12.0 (10-20) Glucose 181 H (70-99) mg/dl POC Glucose (70-99) Estimat Average Glucose 217 mg/dl Hemoglobin A1c 9.2 H (4.5-5.6) % Calcium 9.1 (8.5-10.1) mg/dl Magnesium 1.8 (1.8-2.4) mg/dl 01/22/19 01/21/19 Range/Units 06:16 23:56 WBC (4.8-10.8) K/uL RBC (4.2-5.4) M/uL Hgb (12.0-16.0) g/dL Hct (37-47) % MCV (80-100) fL MCH (25-34) pg MCHC (32-36) g/dL RDW Std Deviation (36.4-46.3) fL RDW Coeff of [place] (11.5-14.5) % Plt Count (130-400) K/uL MPV (7.4-10.4) fL Sodium (136-145) mmol/L Potassium (3.5-5.1) mmol/L Chloride (98-107) mmol/L Carbon Dioxide (21-32) mmol/L Anion Gap (3-11) BUN (7-18) mg/dl Creatinine (0.6-1.2) mg/dl Est Cr Clr Drug Dosing ml/min Est GFR ( Amer) Est GFR (Non-Af Amer) BUN/Creatinine Ratio (10-20) Glucose (70-99) mg/dl POC Glucose 155 H 158 H (70-99) Estimat Average Glucose mg/dl Hemoglobin A1c (4.5-5.6) % Calcium (8.5-10.1) mg/dl Magnesium (1.8-2.4) mg/dl PG Care Time/CCT Total # of Minutes Spent Total Time Spent with Patient: Total time spent is greater than 50% in coordination of care (as documented) at patient's floor/unit and/or counseling patient: (1) Urinary bladder incontinence Urinary Incontinence type: unspecified incontinence Qualified Code(s): R32 - Unspecified urinary incontinence
[2019-01-22] MEDS ORDERED: LORazepam 0.5 MG TAB PO PRN (17:07)
[2019-01-22] MEDS: DICLOFENAC SOD 1% GEL 100 GM TUBE EXT SCH ×2 (17:37→21:05)
[2019-01-22] MEDS: OXYCODONE HCL IR 5 MG TAB (IMMEDIATE RELEASE) PO PRN (17:37)
[2019-01-22] MEDS ORDERED: INSULIN GLARGINE SOLOSTAR 100 UNITS/ML 3 ML PEN SC SCH (21:00)
[2019-01-23] MEDS: OXYCODONE HCL IR 5 MG TAB (IMMEDIATE RELEASE) PO PRN ×3 (01:11→18:16)
[2019-01-23] MEDS ORDERED: INSULIN ASPART 100 UNITS/ML 3 ML PEN SC ONE (02:00)
[2019-01-23] MEDS: LEVOTHYROXINE SODIUM 100 MCG TABLET PO SCH (05:54)
[2019-01-23] MEDS: ASPIRIN 81 MG ECTAB PO SCH (08:45)
[2019-01-23] MEDS: VENLAFAXINE HCL XR 150 MG CAPXR PO SCH (08:46)
[2019-01-23] MEDS: CHOLECALCIFEROL 1,000 UNITS TAB PO SCH (08:47)
[2019-01-23] MEDS: PANTOprazole 40 MG TAB PO SCH (08:47)
[2019-01-23] MEDS: VENLAFAXINE HCL XR 75 MG CAPXR PO SCH ×2 (08:47→14:20)
[2019-01-23] MEDS: ROSUVASTATIN CALCIUM 10 MG TAB PO SCH (08:48)
[2019-01-23] MEDS: LISINOPRIL 20 MG TAB PO SCH (08:48)
[2019-01-23] MEDS: CETIRIZINE HCL 10 MG TABLET PO SCH (08:49)
[2019-01-23] MEDS: DICLOFENAC SOD 1% GEL 100 GM TUBE EXT SCH ×4 (08:49→20:56)
[2019-01-23] MEDS: INSULIN ASPART 100 UNITS/ML 3 ML PEN SC SCH ×4 (08:57→21:28)
--- NOTE | 2019-01-23 16:05 | Pharmacy Report ---
Pharmacy Glycemic Short Note 2 - Date of Service January 23, 2019 - Glycemic Short BSG Results (Last 24 hours): 01/22/19 01/22/19 01/23/19 18:39 20:43 01:58 POC Glucose 225 H 195 H 143 H 01/23/19 01/23/19 08:18 12:26 POC Glucose 125 H 140 H Outpatient Anti-diabetic Regimen: * Novolog 70/30 56 units SC BID * A1c = 9.2 % on 01/22/19 The patient is currently receiving: * Basal insulin: Lantus 40 units SC 01/22 at ~1600 and 2100 * Correctional Insulin: Novolog Correction per scale ACHS Goal Range: Low 110 mg/dL - High 140 mg/dL Correction Factor: 15 mg/dL/unit * Prandial insulin: Per carb ratio of 1 unit per 6 grams CHO consumed Risk Factors for Insulin Resistance: * Recent Surgery: no need for surgical intervention per Dr. Ledesma * Diet: NPO this AM to T2DM ASSESSMENT: * 78 yo F admitted with spinal stenosis (not requiring surgical intervention) * Patient has sub-optimal control of T2DM as outpatient based on HbA1c of 9.2% and receives a total of 112 units per day (as Novolog 70/30, split BID) * BSG's today raning 125-140 mg/dL thus far * Minimal inpatient stressors with possible discharge today - will convert from Lantus to NPH for basal insulin to help with transition to outpatient * No need for additional basal insulin this AM as doses of Lantus yesterday were both in the evening (1600 and 2100) and AM fasting BSG was 125 mg/dL * Will start NPH with dinner at scale based on BSG * Yesterday's regimen heavily weighted towards basal insulin - will try to more evenly distribute by decreasing basal insulin but tightening CHO ratio PLAN FOR INPATIENT GLYCEMIC CONTROL: * Basal insulin: insulin NPH BIDM based on BSG, with 1st dose at dinner today * 20 units for BSG less than 140 mg/dL * 30 units for BSG 140-180 mg/dL * 40 units for BSG greater than 180 mg/dL * Bolus insulin * NovoLog per scale ACHS or Q6hrs while NPO * Goal Range: Low 110 mg/dL - High 140 mg/dL * Correction Factor: 15 mg/dL/unit * Nutritional / Prandial insulin per carb ratio of 1 unit per 5 grams CHO consumed
[2019-01-23] MEDS ORDERED: INSULIN ASPART 100 UNITS/ML 3 ML PEN SC SCH (17:00)
[2019-01-23] MEDS: INSULIN HUMAN NPH SC SCH (18:45)
--- NOTE | 2019-01-23 20:25 | Hospitalist Progress Note ---
Date of Service January 23, 2019 Assessment & Plan (1) Central stenosis of spinal canal: MRI lumbar spine on 01/20 showed severe central canal stenosis at L2-L3 with moderate to severe central canal stenosis at L4-L5. - Orthopedic consult - Dr. Ledesma saw pt and recommends NO SURGERY, and Pain Management Does NOT have cauda equina -has good strength in LEs, is ambulating to the bathroom Simply has severe LBP causing difficulty with ambulation in setting of an already painful left knee -PT/OT consults-PT recommending rehab, OT recommending home with home health-I strongly recommend physical therapy for her as she is quite debilitated with her pain -Continue oxycodone prn severe pain, continue APAP prn mild pain, continue Ativan prn muscle spasm -Continue Voltaren gel qid (2) Urinary bladder incontinence: Now resolved, unclear if was from spinal issues, but does NOT have Cauda Equina UA does not show UTI. HgbA1c is 9.3%, so hyperglycemia and overflow incontinence could be contributing. observe for return (3) Diabetes mellitus, type 2: A1c was 9.3% in 11/2018. - Glycemic pharmacist consult placed--> continue basal bolus regimen as per pharmacy (4) Hypertension: BP acceptable - Continue home lisinopril, aspirin (5) Asthma: No baseline lung issues per patient, but asthma listed on the chart. - DuoNebs PRN (6) Hypothyroidism: TSH was 0.9 in 11/2018. No signs/symptoms of hypo-/hyperthyroidism. - Continue home Synthroid 100 mcg although there is also mention of a dose of 75 MCG in the chart-the nurse called at home who confirmed the 75 MCG dose at home however PCP notes state 100. Patient is unsure what she takes -We will convert back to 75 mcg daily (7) Sleep related hypoxia: Reports that she has had a CPAP in the past, but was taken away because she didn't use it (8) Chronic kidney disease, stage 3: Baseline Cr ~1.3-1.4, eGFR ~35-40. - Presently at baseline. - Monitor Cr; renally-adjust meds (9) CLL (chronic lymphocytic leukemia): No signs of infection. WBC was 17.4 on admission. - Monitor (10) DVT prophylaxis: SCDs Dispo-medically stable for discharge today, awaiting insurance authorization and rehab placement Subjective Still having a lot of pain in the mid lower back radiating to the left lower back. She is only taken 1 dose of oxycodone so far today. She has not moved out of the bed much. She is agreeable to going to rehab if physical therapy recommends that which they did. She denies chest pain or shortness of breath. Review of Systems Review of Systems: All systems reviewed & are unremarkable except as noted in HPI & below Physical Exam Constitutional: WD/WN, vitals as above + obese Eyes: + anicteric sclerae Neck: trachea midline, no thyromegaly Respiratory: normal respiratory effort, lungs clear to auscultation Cardiovascular: RRR, no murmur, no edema Gastrointestinal (Abdomen): normal bowel sounds, soft, nontender, no hepatosplenomegaly Musculoskeletal: Spine: lumbar spine normal to inspection, + pain with thoraco-lumbar ROM and + lumbar spinal tenderness (and +TTP in left lower back into buttock); no cervical spinal tenderness, no thoracic spinal tenderness and straight leg raise negative bilaterally Extremities: extremities normal to inspection; no cyanosis and no clubbing Knee: + knee abnormal to inspection (TKA scar over left knee); no skin erythema Skin: no rashes, warm and dry Neurologic: moves all extremities and awake; no focal motor deficits (5/5 strength throughout LEs bilat) Motor/Sensory: no sensory deficit (sensation intact to lt touch bilat LEs) Psychiatric: A+Ox3, euthymic affect Results & Data Vital Signs (Past 12 Hours) Vital Signs Temp Pulse Resp BP Pulse Ox 01/23/19 15:29 36.8 C 81 17 141/82 H 92 Laboratory Results No labs PG Care Time/CCT Total # of Minutes Spent Total Time Spent with Patient: Total time spent is greater than 50% in coordination of care (as documented) at patient's floor/unit and/or counseling patient: (1) Urinary bladder incontinence Urinary Incontinence type: unspecified incontinence Qualified Code(s): R32 - Unspecified urinary incontinence
[2019-01-24] MEDS ORDERED: INSULIN ASPART 100 UNITS/ML 3 ML PEN SC ONE (02:00)
[2019-01-24] MEDS: LEVOTHYROXINE SODIUM 100 MCG TABLET PO SCH (05:32)
--- NOTE | 2019-01-24 09:01 | Pharmacy Report ---
Pharmacy Glycemic Short Note 2 - Date of Service January 24, 2019 - Glycemic Short BSG Results (Last 24 hours): 01/23/19 01/23/19 01/23/19 12:26 16:59 20:58 POC Glucose 140 H 146 H 136 H 01/24/19 01/24/19 02:09 08:12 POC Glucose 129 H 95 Outpatient Anti-diabetic Regimen: * Novolog 70/30 56 units SC BID * A1c = 9.2 % on 01/22/19 ASSESSMENT: * Previous 24hrs have yielded reasonable BSGs. Will continue with current insulin regimen barring any acute fluctuations in insulin requirements. PLAN FOR INPATIENT GLYCEMIC CONTROL: * Basal insulin: insulin NPH BIDM based on BSG, with 1st dose at dinner today * 20 units for BSG less than 140 mg/dL * 30 units for BSG 140-180 mg/dL * 40 units for BSG greater than 180 mg/dL * Bolus insulin * NovoLog per scale ACHS or Q6hrs while NPO * Goal Range: Low 110 mg/dL - High 140 mg/dL * Correction Factor: 15 mg/dL/unit * Nutritional / Prandial insulin per carb ratio of 1 unit per 5 grams CHO consumed
[2019-01-24] MEDS: OXYCODONE HCL IR 5 MG TAB (IMMEDIATE RELEASE) PO PRN (09:05)
[2019-01-24] MEDS: ROSUVASTATIN CALCIUM 10 MG TAB PO SCH (09:06)
[2019-01-24] MEDS: ASPIRIN 81 MG ECTAB PO SCH (09:06)
[2019-01-24] MEDS: PANTOprazole 40 MG TAB PO SCH (09:06)
[2019-01-24] MEDS: VENLAFAXINE HCL XR 150 MG CAPXR PO SCH ×2 (09:06→20:36)
[2019-01-24] MEDS: CETIRIZINE HCL 10 MG TABLET PO SCH (09:06)
[2019-01-24] MEDS: CHOLECALCIFEROL 1,000 UNITS TAB PO SCH (09:06)
[2019-01-24] MEDS: LISINOPRIL 20 MG TAB PO SCH (09:06)
[2019-01-24] MEDS: DICLOFENAC SOD 1% GEL 100 GM TUBE EXT SCH ×4 (09:10→20:35)
[2019-01-24] MEDS: INSULIN ASPART 100 UNITS/ML 3 ML PEN SC SCH ×4 (09:16→20:32)
[2019-01-24] MEDS: INSULIN HUMAN NPH SC SCH ×2 (09:17→17:30)
--- NOTE | 2019-01-24 17:14 | Hospitalist Progress Note ---
Date of Service January 24, 2019 Assessment & Plan (1) Central stenosis of spinal canal: MRI lumbar spine on 01/20 showed severe central canal stenosis at L2-L3 with moderate to severe central canal stenosis at L4-L5. - Orthopedic consult - Dr. Ledesma saw pt and recommends NO SURGERY, and Pain Management Does NOT have cauda equina -has good strength in LEs, is ambulating to the bathroom Simply has severe LBP causing difficulty with ambulation in setting of an already painful left knee---> pain improved today with oxycodone -PT/OT consults-PT recommending rehab, OT recommending home with home health-I strongly recommend physical therapy for her as she is quite debilitated with her pain -Continue oxycodone prn severe pain, continue APAP prn mild pain, continue Ativan prn muscle spasm -Continue Voltaren gel qid (2) Urinary bladder incontinence: Now resolved, unclear if was from spinal issues, but does NOT have Cauda Equina UA does not show UTI. HgbA1c is 9.3%, so hyperglycemia and overflow incontinence could be contributing. observe for return (3) Diabetes mellitus, type 2: A1c was 9.3% in 11/2018. - Glycemic pharmacist consult placed--> continue basal bolus regimen as per pharmacy (4) Hypertension: BP acceptable - Continue home lisinopril, aspirin (5) Asthma: No baseline lung issues per patient, but asthma listed on the chart. - DuoNebs PRN (6) Hypothyroidism: TSH was 0.9 in 11/2018. No signs/symptoms of hypo-/hyperthyroidism. - Continue home Synthroid 100 mcg although there is also mention of a dose of 75 MCG in the chart-the nurse called at home who confirmed the 75 MCG dose at home however PCP notes state 100. Patient is unsure what she takes -We will convert back to 75 mcg daily (7) Sleep related hypoxia: Reports that she has had a CPAP in the past, but was taken away because she didn't use it However, now she thinks she does have one at home--> RN called and he will bring it in (8) Chronic kidney disease, stage 3: Baseline Cr ~1.3-1.4, eGFR ~35-40. - Presently at baseline. - Monitor Cr; renally-adjust meds (9) CLL (chronic lymphocytic leukemia): No signs of infection. WBC was 17.4 on admission. 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 She is out of bed to chair. She is ambulating a little bit with a walker in the room. Denies any bowel or bladder symptoms. Denies chest pain or shortness of breath. Review of Systems Review of Systems: All systems reviewed & are unremarkable except as noted in HPI & below Physical Exam Constitutional: WD/WN, vitals as above + obese Eyes: + anicteric sclerae Neck: trachea midline, no thyromegaly Respiratory: normal respiratory effort, lungs clear to auscultation Cardiovascular: RRR, no murmur, no edema Gastrointestinal (Abdomen): normal bowel sounds, soft, nontender, no hepatosplenomegaly Musculoskeletal: Spine: lumbar spine normal to inspection, + pain with thoraco-lumbar ROM and + lumbar spinal tenderness (and +TTP in left lower back into buttock); no cervical spinal tenderness, no thoracic spinal tenderness and straight leg raise negative bilaterally Extremities: extremities normal to inspection; no cyanosis and no clubbing Knee: + knee abnormal to inspection (TKA scar over left knee); no skin erythema Skin: no rashes, warm and dry Neurologic: moves all extremities and awake; no focal motor deficits (5/5 strength throughout LEs bilat) Motor/Sensory: no sensory deficit (sensation intact to lt touch bilat LEs) Psychiatric: A+Ox3, euthymic affect Results & Data Vital Signs (Past 12 Hours) Vital Signs Temp Pulse Pulse Resp BP Pulse Ox 01/24/19 14:57 37.0 C 84 17 124/74 95 01/24/19 07:54 36.6 C 86 18 140/84 93 Laboratory Results 01/24/19 01/24/19 01/24/19 Range/Units 11:57 08:12 02:09 POC Glucose 190 H 95 129 H (70-99) 01/23/19 Range/Units 20:58 POC Glucose 136 H (70-99) PG Care Time/CCT Total # of Minutes Spent Total Time Spent with Patient: Total time spent is greater than 50% in coordination of care (as documented) at patient's floor/unit and/or counseling patient: (1) Urinary bladder incontinence Urinary Incontinence type: unspecified incontinence Qualified Code(s): R32 - Unspecified urinary incontinence
[2019-01-25] MEDS ORDERED: LEVOTHYROXINE SODIUM 75 MCG TABLET PO SCH (06:30)
[2019-01-25] MEDS: CHOLECALCIFEROL 1,000 UNITS TAB PO SCH (08:37)
[2019-01-25] MEDS: LISINOPRIL 20 MG TAB PO SCH (08:37)
[2019-01-25] MEDS: PANTOprazole 40 MG TAB PO SCH (08:37)
[2019-01-25] MEDS: CETIRIZINE HCL 10 MG TABLET PO SCH (08:37)
[2019-01-25] MEDS: DICLOFENAC SOD 1% GEL 100 GM TUBE EXT SCH (08:38)
[2019-01-25] MEDS: ROSUVASTATIN CALCIUM 10 MG TAB PO SCH (08:38)
[2019-01-25] MEDS: ASPIRIN 81 MG ECTAB PO SCH (08:38)
[2019-01-25] MEDS: VENLAFAXINE HCL XR 150 MG CAPXR PO SCH (08:38)
[2019-01-25] MEDS: OXYCODONE HCL IR 5 MG TAB (IMMEDIATE RELEASE) PO PRN (08:40)
[2019-01-25] MEDS: INSULIN HUMAN NPH SC SCH (08:47)
[2019-01-25] MEDS: INSULIN ASPART 100 UNITS/ML 3 ML PEN SC SCH (08:47)
--- NOTE | 2019-01-25 11:13 | Discharge Summary ---
Date of Service January 25, 2019 Admission HPI Per Admitting Provider 78yo F w/ hx of DM, HTN, and hypothyroidism who presents with concern for acute lumbar nerve impingement. The patient reports that normally she does not have any urinary incontinence at all. On Sunday into Sunday, she noted increasing lower lumbar back pain that corresponded to episodes of urinary incontinence. She reports that at least 3 times on Sunday, Sunday, and Sunday, she had flow incontinence of urine. She also reports that her left leg feels weak, though she reports that her left knee has been increasingly painful. She also notes that she feels she lists to one side and falls to the left. Finally, she notes no numbness of the legs or any saddle anesthesia. Otherwise, she is in her normal state of health with no fevers, chills, sweats, no shortness of breath, no cough, no chest pain, or other problems. Principal Diagnosis Lumbar spinal stenosis Left leg weakness Discharge Exam Constitutional WD/WN, vitals as above + obese Eyes + anicteric sclerae Neck trachea midline, no thyromegaly Respiratory normal respiratory effort, lungs clear to auscultation Cardiovascular RRR, no murmur, no edema Gastrointestinal (Abdomen) normal bowel sounds, soft, nontender, no hepatosplenomegaly Musculoskeletal Spine: lumbar spine normal to inspection, + pain with thoraco-lumbar ROM and + lumbar spinal tenderness (and +TTP in left lower back into buttock); no cervical spinal tenderness, no thoracic spinal tenderness and straight leg raise negative bilaterally Extremities: extremities normal to inspection; no cyanosis and no clubbing Knee: + knee abnormal to inspection (TKA scar over left knee); no skin erythema Skin no rashes, warm and dry Neurologic moves all extremities and awake; no focal motor deficits (5/5 strength throughout LEs bilat) Motor/Sensory: no sensory deficit (sensation intact to lt touch bilat LEs) Psychiatric A+Ox3, euthymic affect Discharge Data Allergies Allergy/AdvReac Type Severity Reaction Status Date / Time adhesive Allergy Intermediate BLISTERS Verified 01/21/19 15:06 clopidogrel Allergy Unknown GI UPSET Verified 01/21/19 15:06 liraglutide Allergy Unknown GI UPSET Verified 01/21/19 15:06 phenol Allergy Unknown GI UPSET Verified 01/21/19 15:06 propylene glycol Allergy Unknown GI UPSET Verified 01/21/19 15:06 amitriptyline AdvReac Severe HALLUCINATI Verified 01/21/19 15:06 ONS atorvastatin AdvReac Intermediate JOINT PAIN Verified 01/21/19 15:06 cephalexin AdvReac Intermediate N/V Verified 01/21/19 15:06 pioglitazone AdvReac Intermediate SEVERE Verified 01/21/19 15:06 FATIGUE tramadol AdvReac Intermediate N/V Verified 01/21/19 15:06 codeine AdvReac Mild NAUSEA AND Verified 01/21/19 15:06 VOMITING metformin AdvReac Mild NAUSEA AND Verified 01/21/19 15:06 VOMITING doxycycline AdvReac Unknown GI SYMPTOMS Verified 01/21/19 15:06 saccharin AdvReac Unknown diarrhea Verified 01/21/19 15:06 Consultations 01/21/19 18:25 Consult Orthopedic Surgery Stat ED Decision to Admit Stat 01/21/19 20:03 Consult Orthopedic Surgery Routine Ordered Studies 01/21/19 15:38 MR lumbar spine wo/w con Stat Hospital Course (1) Central stenosis of spinal canal: MRI lumbar spine on 01/20 showed severe central canal stenosis at L2-L3 with moderate to severe central canal stenosis at L4-L5. - Orthopedic consult - Dr. Ledesma saw pt and recommends NO SURGERY, and Pain Management Does NOT have cauda equina -has good strength in LEs, is ambulating to the bathroom Simply has severe LBP causing difficulty with ambulation in setting of an already painful left knee---> pain improved today with oxycodone -PT/OT consults-PT recommending rehab, OT recommending home with home health-I strongly recommend physical therapy for her as she is quite debilitated with her pain -Continue oxycodone prn severe pain, continue APAP prn mild pain, continue Ativan prn muscle spasm -Continue Voltaren gel qid -recommend f/u with Pain Management if not improving as outpt (2) Urinary bladder incontinence: Now resolved, unclear if was from spinal issues, but does NOT have Cauda Equina UA does not show UTI. HgbA1c is 9.3%, so hyperglycemia and overflow incontinence could be contributing. observe for return (3) Diabetes mellitus, type 2: A1c was 9.3% in 11/2018. - reduced Insulin dose from home dose likely due to controlled diet in hospital setting. Now 70/30 20 units bid but was on 56 bid at home -increase back up as tolerated (4) Hypertension: BP acceptable - Continue home lisinopril, aspirin (5) Asthma: No baseline lung issues per patient, but asthma listed on the chart. - DuoNebs PRN were ordered but never given (6) Hypothyroidism: TSH was 0.9 in 11/2018. No signs/symptoms of hypo-/hyperthyroidism. - Continue home Synthroid 100 mcg although there is also mention of a dose of 75 MCG in the chart-the nurse called at home who confirmed the 75 MCG dose at home however PCP notes state 100. Patient is unsure what she takes -We will convert back to 75 mcg daily (7) Sleep related hypoxia: Reports that she has had a CPAP in the past, but was taken away because she didn't use it However, now she thinks she does have one at home--> RN called and he will bring it in (8) Chronic kidney disease, stage 3: Baseline Cr ~1.3-1.4, eGFR ~35-40. - Presently at baseline. - Monitor Cr; renally-adjust meds (9) CLL (chronic lymphocytic leukemia): No signs of infection. WBC was 17.4 on admission. 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, follows with routine scans as has another aneurysm frontally being monitored at [place] no headaches or evidence of rupture (11) DVT prophylaxis: SCDs Dispo-medically stable for discharge today to rehab Total Time Total Time Spent Total Time Spent (In Minutes): >30 min Total Time Includes: Examination of the Patient, Discharge Planning and Medica tion Reconciliation Discharge Plan Discharge Items Patient Disposition[facility] Reason For Visit: ACUTE LUMBAR NERVE IMPINGEMENT Discharge Diagnosis: Low back pain, lumbar spinal stenosis, left lower extremity weakness Condition: Good Discharge Goals: Decrease discomfort, Diagnostic testing, Improve disease control and Therapeutic intervention Activity: As commented below Lifting: No more than 5 pounds Bathing: No limitations Exercise/Sports: Gradually increase as tolerated Exercise Comment: with PT/OT Non-emergency contact: Primary Care Provider Call non-emergency contact if: you have any medication questions, your symptoms worsen, your pain is not controlled, your pain is worsening, your pain is unusual for you and your pain is concerning for you Follow-up/Referrals: José Miguel De La Cruz MD [Primary Care Provider] - 02/04/19 2:30 pm (Please, follow up with Dr. De La Cruz on SundayFebruary 04 at 2:30 pm. *If you need to change this appointment, call the office at [phone].) Abrahan Jasso MD, [facility] [Anesthesiologist] - (Please schedule a follow up appointment with Dr. Jasso of Pain Management if back pain not improving ) Diet: Carb Consistent or DM2 and Heart Healthy Addtl Provider Instructions: Please take oxycodone as needed and a bowel regimen for your back pain. Can take ativan as needed for anxiety or muscle spasm. Needs PT/OT Prescriptions: New acetaminophen [Mapap (acetaminophen)] 325 mg Tablet 650 mg PO Q4H PRN (Reason: pain) Qty: 30 RF: 0 diclofenac sodium [Voltaren] 1 % Gel 4 gm EXT QID Qty: 100 RF: 0 oxycodone 5 mg Tablet 5 mg PO Q6H PRN (Reason: severe pain) Qty: 14 RF: 0 Continued omeprazole 20 mg Tablet,Delayed Release (Dr/Ec) 20 mg PO DAILY Qty: 0 RF: 0 lisinopril 20 mg tablet 20 mg PO DAILY Qty: 90 RF: 3 rosuvastatin 10 mg tablet 10 mg PO DAILY Qty: 30 RF: 2 cetirizine 10 mg capsule 10 mg PO DAILY Qty: 30 RF: 3 hydroxyzine HCl 10 mg tablet 10 mg PO HS PRN (Reason: itching) Qty: 30 RF: 1 Tirosint 75 mcg capsule 75 mcg PO DAILY RF: 0 pen needle, diabetic [BD Ultra-Fine Micro Pen Needle] 32 gauge x 1/4" needle .ROUTE .MEDSUPPLY Qty: 50 RF: 0 OneTouch Ultra Blue Test Strip strip .ROUTE .MEDSUPPLY Qty: 10 RF: 0 lancets [OneTouch Delica Lancets] 33 gauge misc .ROUTE .MEDSUPPLY Qty: 100 RF: 0 aspirin 81 mg tablet,chewable 81 mg PO DAILY RF: 0 venlafaxine 75 mg capsule,extended release 24hr 150 mg PO BID RF: 0 PreserVision Lutein 226 mg-200 unit -5 mg-0.8 mg Capsule 1 cap PO DAILY RF: 0 Changed Novolog Mix 70-30FlexPen U-100 100 unit/mL (70-30) insulin pen 20 units SQ BID Qty: 15 RF: 3 Discontinued diphenhydramine HCl 25 mg tablet 25 mg PO HS PRNQty: 30 RF: 0 cholecalciferol (vitamin D3) 2,000 unit capsule 4,000 units PO DAILY RF: 0 No Action lorazepam 0.5 mg Tablet 0.5 mg PO TID PRN (Reason: Anxiety) Qty: 0 RF: 0 Stand-Alone Forms: [facility] Discharge Orders: Discharge Order (Routine); Ordered 01/25/19 Ordered By: Joann Ardon Skilled Items Patient informed of condition?: Yes DNR: No Discharge Level of Care: Skilled Communicable Disease: No Discharge Prognosis: Improving Admission Data Admit Date/Time: 01/21/19 18:33 Attending Provider: Joann Ardon Admit Provider: Sanjeev Eubanks Primary Care Provider: José Miguel De La Cruz Other Providers: Donnie Ledesma Weldon J. Service: Medical Other Pending Studies at Discharge: No
--- NOTE | 2019-01-30 09:43 | Orthopedic Consultation ---
Date of Consultation January 30, 2019 Assessment & Plan (1) Central stenosis of spinal canal: Plan at this time I do not feel there is any need for surgical intervention. I did discuss with patient at length the findings on MRI. She does have multilevel lumbar spondylosis with spinal stenosis. However her current presentation is not neurogenic in nature would not recommend any surgical intervention. She may be best served with a consultation with interventional pain management. Follow-up as needed. History of Present Illness Attending Physician: Joann Ardon MD Allergies Allergy/AdvReac Type Severity Reaction Status Date / Time adhesive Allergy Intermediate BLISTERS Verified 01/21/19 15:06 clopidogrel Allergy Unknown GI UPSET Verified 01/21/19 15:06 liraglutide Allergy Unknown GI UPSET Verified 01/21/19 15:06 phenol Allergy Unknown GI UPSET Verified 01/21/19 15:06 propylene glycol Allergy Unknown GI UPSET Verified 01/21/19 15:06 amitriptyline AdvReac Severe HALLUCINATI Verified 01/21/19 15:06 ONS atorvastatin AdvReac Intermediate JOINT PAIN Verified 01/21/19 15:06 cephalexin AdvReac Intermediate N/V Verified 01/21/19 15:06 pioglitazone AdvReac Intermediate SEVERE Verified 01/21/19 15:06 FATIGUE tramadol AdvReac Intermediate N/V Verified 01/21/19 15:06 codeine AdvReac Mild NAUSEA AND Verified 01/21/19 15:06 VOMITING metformin AdvReac Mild NAUSEA AND Verified 01/21/19 15:06 VOMITING doxycycline AdvReac Unknown GI SYMPTOMS Verified 01/21/19 15:06 saccharin AdvReac Unknown diarrhea Verified 01/21/19 15:06 Home Medications Home Medications Medication Instructions Recorded Confirmed Type omeprazole 20 mg PO DAILY #0 11/28/10 01/21/19 History PreserVision Lutein 1 cap PO DAILY 09/04/18 01/21/19 History rosuvastatin 10 mg tablet 10 mg PO DAILY #30 tab 12/03/18 01/21/19 Rx cetirizine 10 mg capsule 10 mg PO DAILY #30 cap 01/14/19 01/21/19 Rx hydroxyzine HCl 10 mg tablet 10 mg PO HS PRN #30 tab 01/14/19 01/21/19 Rx lisinopril 20 mg tablet 20 mg PO DAILY #90 tab 01/16/19 01/21/19 Rx aspirin 81 mg PO DAILY 01/21/19 01/21/19 History blood sugar diagnostic strips #10 ea 01/23/19 01/23/19 History lancets 33 gauge #100 ea 01/23/19 01/23/19 History levothyroxine 75 mcg capsule 75 mcg PO DAILY 01/23/19 01/23/19 History pen needle, diabetic 32 gauge x #50 ea 01/23/19 01/23/19 History 1/4" venlafaxine ER 75 mg 150 mg PO BID cap 01/23/19 01/23/19 History capsule,extended release 24 hr Novolog Mix 70-30FlexPen U-100 20 units SQ BID #15 ml 01/25/19 01/21/19 Rx acetaminophen [Mapap 650 mg PO Q4H PRN #30 tab 01/25/19 Rx (acetaminophen)] diclofenac sodium [Voltaren] 4 gm EXT QID #100 gm 01/25/19 Rx lorazepam 0.5 mg PO TID PRN #10 tab 01/25/19 Rx oxycodone 5 mg PO Q6H PRN #14 tab 01/25/19 Rx Patient History Family History Grandmother Lung cancer Father Lung disease Mother Cancer Hypertension Unknown Colon cancer Son Anxiety Depression Kidney stones Alcohol abuse Social History Preferred Language: Wolof Communication Ability: Effective [employer] Required: No Beliefs That Will Affect Care: None marital status: Current Living Situation: Spouse Current Living Situation Comment: Home Feels Safe at Home: Yes Smoking Status: Current every day smoker Tobacco Type: cigarettes ; Cigarettes Per Day: 2 ; Second Hand Exposure: Yes ; Hx Alcohol Use: No Hx Substance Use: No
== END 2019-01-25 12:16 | DRG 552 ==
LOC: ED 14:36 → 3W 18:33 → SUATTDRO 18:33 → 3W 19:27
DX: J45.909 Unspecified asthma, uncomplicated; Z79.899 Other long term (current) drug therapy; I12.9 Hypertensive chronic kidney disease with stage 1 through stage 4 chronic kidney disease, or unspecified chronic kidney disease; F17.210 Nicotine dependence, cigarettes, uncomplicated; Z79.4 Long term (current) use of insulin; N39.498 Other specified urinary incontinence; R09.02 Hypoxemia; N18.3 Chronic kidney disease, stage 3 (moderate); E03.9 Hypothyroidism, unspecified; M48.061 Spinal stenosis, lumbar region without neurogenic claudication; C91.10 Chronic lymphocytic leukemia of B-cell type not having achieved remission; E11.22 Type 2 diabetes mellitus with diabetic chronic kidney disease; Z79.82 Long term (current) use of aspirin

== ENCOUNTER 2019-12-05 17:16 | Inpatient (IN) ==
[2019-12-05] MEDS ORDERED: OPTIRAY 320 125ml IV PRN (17:19)
--- NOTE | 2019-12-05 17:45 | CT Scan Report ---
CT head/brain wo con CLINICAL HISTORY: Stroke evaluation Aphasia COMPARISON STUDY: 11/28/2010 TECHNIQUE: Axial CT of the brain is performed from the vertex to the skull base. IV contrast was not administered for this examination. A dose lowering technique was utilized adhering to the principles of ALARA. CT DOSE: 1622.37 mGy.cm FINDINGS: No intra or extra-axial mass lesions are visualized. There is no CT evidence of acute cortical infarc tion. There is no evidence of midline shift. There is no acute hemorrhage. No calvarial fractures ar e visualized. There are patchy white matter hypodensities likely on a small vessel basis. 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 There is no evidence of pathologic ventricular dilatation. There is no evidence of acute sinusitis There is radiodense material in the region of the distal vertebral artery possibly representing embol ic material from prior intervention. Correlation with prior neuro interventional procedures is recomm ended. IMPRESSION: No acute intracranial findings ACT 112: Negative or not required by law. Electronically signed by: Donovan Heller M.D. 12/05/2019 5:44 PM
[2019-12-05] MEDS ORDERED: SODIUM CHLORIDE 0.9% 1000ML 1,000 ML IV ONE (17:51)
--- NOTE | 2019-12-05 17:54 | CT Scan Report ---
CT angio neck with con CLINICAL HISTORY: Stroke evaluation COMPARISON STUDY: No previous studies for comparison. TECHNIQUE: CT angiography was performed from the aortic arch to the skull base. MIP imaging was perfo rmed. The patient was scanned in a dynamic helical fashion during intravenous administration of cc of Optiray 320. A dose lowering technique was utilized adhering to the principles of ALARA. CT DOSE: Technique: CT angiogram of the carotid and vertebral arteries was obtained using intravenous contrast and 3-D reconstruction. NASCET criteria was utilized. Findings: There are borderline enlarged mediastinal lymph nodes. There is a 50% stenosis of the proximal right common carotid artery. There is mild atheromatous narro wing of the distal right common carotid artery. There is a short segment dissection involving the pro ximal right internal carotid artery. There is a 25% diameter narrowing of the proximal right internal carotid artery. There is a 50% diameter narrowing of the proximal left common carotid artery. There is atheromatous c hange present at the level of the proximal left internal carotid artery with a 40% diameter narrowing . The right vertebral artery is occluded approximately. There is intermittent reconstitution of the cer vical right vertebral artery. There is a mild nonhemodynamically significant stenosis involving the l eft vertebral origin. There is mild multifocal left vertebral artery narrowing not exceeding 50%. The re are metallic densities present within the distal left vertebral artery, likely secondary to a prio r interventional procedure. Clinical correlation is recommended. IMPRESSION: 1. Bilateral 50% diameter narrowing of the common carotid arteries 2. Atheromatous changes involving both internal carotid arteries without evidence of hemodynamically significant stenosis. 3. 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 Occlusion of the right vertebral artery with multifocal areas of reconstitution 5. Multifocal left vertebral artery stenoses not exceeding 50%. Postprocedural changes involving the distal left vertebral artery. ACT 112: Negative or not required by law. Electronically signed by: Donovan Heller M.D. 12/05/2019 5:52 PM
--- NOTE | 2019-12-05 17:59 | CT Scan Report ---
CT angio head w con CLINICAL HISTORY: Stroke evaluation TECHNIQUE: CT angiography of the head was performed in a dynamic helical fashion during intravenous a dministration of 118 cc of Optiray 320. MIP imaging was performed. A dose lowering technique was util ized adhering to the principles of ALARA. CT DOSE: COMPARISON STUDY: No previous studies for comparison. 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 There are postprocedura l changes involving the distal left vertebral artery. There is no evidence of major intracranial bran ch occlusion. There is no evidence of intracranial stenosis. 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 The dural venous sinuses appear patent. IMPRESSION: 1. No evidence of major intracranial branch occlusion or stenosis. 2. Postprocedural changes involving the distal left vertebral artery. 3. 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 4. 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 ACT 112: Negative or not required by law. Electronically signed by: Dnoovan Heller M.D. 12/05/2019 5:57 PM
[2019-12-05 18:00] LABS: Hematocrit (blood only) 53.8 % (37-47); Hemoglobin 18.7 g/dL (12.0-16.0); Mean Corpuscular Hemoglobin 31.3 pg (25-34); Mean Corpuscular Hgb Conc 34.8 g/dL (32-36); Mean Platelet Volume 12.4 fL (7.4-10.4); Platelet Count 268 K/uL (130-400); RDW Coefficient of Variation 14.2 % (11.5-14.5); RDW Standard Deviation 45.9 fL (36.4-46.3); Red Blood Count 5.98 M/uL (4.2-5.4); White Blood Count 18.57 K/uL (4.8-10.8)
[2019-12-05 18:11] LABS: Partial Thromboplastin Time 27.1 Seconds (21.0-31.0)
[2019-12-05 18:21] LABS: Albumin Level 4.1 gm/dl (3.4-5.0); Aspartate Aminotransferase 22 U/L (15-37); BUN Creatinine Ratio 10.8 (10-20); Blood Urea Nitrogen 15 mg/dl (7-18); Calcium 9.6 mg/dl (8.5-10.1); Carbon Dioxide 28 mmol/L (21-32); Chloride 102 mmol/L (98-107); Creatinine Clr Calc Pharmacy 34.7 ml/min; Est GFR (African American) 41.7; Glucose 151 mg/dl (70-99); Magnesium 1.8 mg/dl (1.8-2.4); Potassium 3.6 mmol/L (3.5-5.1); Sodium 138 mmol/L (136-145)
--- NOTE | 2019-12-05 18:30 | Emergency Department Note ---
Impression & Plan Stroke, Aphasia ED Provider Note Provider: Jeffy Suresh MD DATE OF SERVICE: 12/05/2019 CHIEF COMPLAINT: Aphasia, ?weakness HISTORY OF PRESENT ILLNESS: Patient is a 79-year-old female with a past medical history including DVT, aneurysm, CLL, diabetes, hypertension, CKD, breast cancer presenting today via EMS. Evidently around 1 PM per EMS report the patient began to experience some mild reported right-sided weakness. Family thought this might be related to glucose issues. They assisted out of the car which she could not get out of and onto the house. Around 3 PM evidently significantly worsened with aphasia developing and more weakness. EMS was called. Upon arrival the patient is unable to provide significant history herself. She does able to answer her name and deny pain but is very anxious. Patient's later arrives and states he was at home initially but states her speech is much worse right now than normal. States she came up her doctor's appointment and other family members brought her in and when he came in and found her she has difficulty speaking and EMS was called. He states that oftentimes she seems to be quite fatigued but this is been ongoing for some time. REVIEW OF SYSTEMS: Limited secondary to her aphasia. PAST MEDICAL HISTORY: As noted above MEDICATIONS: Reviewed medication list which includes aspirin and insulin among others SOCIAL HISTORY: and lives at home with . PHYSICAL EXAM: GENERAL: alert laying on the stretcher appears somewhat anxious, intermittently following commands Head: normocephalic and atraumatic EYES: No injection, discharge or icterus. PERRL, EOMI. NECK: Trachea midline. Supple. ENT: Mucous membranes pink and moist. LUNGS: Airway patent. No retractions. Breath sounds clear HEART: Regular rate and rhythm. No chest wall tenderness ABDOMEN: Soft and non-tender, without guarding or rebound. SKIN: Acyanotic, warm, dry, without rashes EXTREMITIES: Without obvious deformity or tenderness. NEUROLOGICAL: Patient with significant receptive expressive aphasia. Will say her name and eventually gets some mumbled words out. No facial droop appreciated. No drift or significant weakness of the lower extremities appreciated. Some left hand sport psychologist diminishment is appreciated. No gross visual field cut is notable. EKG: Sinus tachycardia 101 bpm. No PVCs. No acute ST segment elevation or depression. QTC 492. Normal axis. CONTINUOUS CARDIAC MONITORING: was ordered and showed a heart rate of 98 bpm in normal sinus rhythm Patient's hypertension was referred to the hospitalist HOSPITAL COURSE: 1720 Patient was first seen and H&P performed on way to CT 1800 updated at bedside. Have discussed with tele-stroke patient's case Dr. Brooks. 1835 discussed with radiology and tele-stroke. 1840 Patient reassessed and updated. Patient was still with aphasia although slightly better. Left hand sport psychologist strength appeared improved. Discussed with at bedside. Patient will be admitted. [address]Ashely GALVEZ. Patient's laboratory studies and imaging reviewed. Differential includes Infection, dehydration, metabolic abnormality, hypo/hyperglycemia, electrolyte disturbance, anemia, hypoxia, cardiac sources, intracerebral event, toxicologic, neurologic, as well as other pathologies. IMPRESSION/MEDICAL DECISION MAKING[place]. Made a stroke alert in route from EMS report. Upon arrival patient has some receptive and significant expressive aphasia. He somewhat anxious. No par ticular facial droop appreciated. Some mild weakness of the left hand. CT the head without acute bleed. CT angiograms completed do show some stenosis as well as sore dissection of the right internal carotid artery. Discussed with tele- stroke at [facility]. Patient is outside the window for acute TPA at this time due to the last known well of 1 PM. No acute large vessel occlusion requiring throm bectomy intervention. Discussed with tele-stroke and they recommended magnesium. Did discuss with him the angiogram findings as well as the aneurysms noted. They do not recommend acute intervention at this time or anticoagulation. Laboratory studies show baseline renal function with no acute electrolyte abnormality. Leukocytosis of 18 is notable here. Slightly elevated from baseline but does have a history of CLL. No evidence of TSH abnormality or positive troponin. Question microvascular disease causing the stroke versus may be embolic phenomena. Patient require admission for further care. does state the patient had aneurysm repair and stenting several years ago at [facility]. Hospitalist to be contacted. DIAGNOSIS: Stroke, aphasia DISPOSITION: Hospitalist will evaluate for admission Past Med/Surg History Social History Preferred Language: Urdu Communication Ability: Effective Avid Editor Required: No Beliefs That Will Affect Care: None marital status: Current Living Situation: Spouse Current Living Situation Comment: Home Feels Safe at Home: Yes Smoking Status: Light tobacco smoker Tobacco Type: cigarettes ; Age Started Using Tobacco: 16 ; Cigarettes Per Day: 2 ; Second Hand Exposure: Yes ; Hx Alcohol Use: No Hx Substance Use: No Allergies Allergies Allergy/AdvReac Type Severity Reaction Status Date / Time adhesive Allergy Intermediate BLISTERS Verified 12/05/19 10:29 clopidogrel Allergy Unknown GI UPSET Verified 12/05/19 10:29 liraglutide Allergy Unknown GI UPSET Verified 12/05/19 10:29 phenol Allergy Unknown GI UPSET Verified 12/05/19 10:29 propylene glycol Allergy Unknown GI UPSET Verified 12/05/19 10:29 amitriptyline AdvReac Severe HALLUCINATI Verified 12/05/19 10:29 ONS atorvastatin AdvReac Intermediate JOINT PAIN Verified 12/05/19 10:29 cephalexin AdvReac Intermediate N/V Verified 12/05/19 10:29 pioglitazone AdvReac Intermediate SEVERE Verified 12/05/19 10:29 FATIGUE tramadol AdvReac Intermediate N/V Verified 12/05/19 10:29 codeine AdvReac Mild NAUSEA AND Verified 12/05/19 10:29 VOMITING metformin AdvReac Mild NAUSEA AND Verified 12/05/19 10:29 VOMITING doxycycline AdvReac Unknown GI SYMPTOMS Verified 12/05/19 10:29 saccharin AdvReac Unknown diarrhea Verified 12/05/19 10:29 hydroxychloroquine AdvReac Diarrhea Verified 12/05/19 10:29 [From Plaquenil] zoster vaccine live AdvReac Verified 12/05/19 10:29 [From Zostavax (PF)] Home Meds Home Medications Medication Instructions Recorded Confirmed PreserVision Lutein 1 cap PO DAILY 09/04/18 12/05/19 aspirin 81 mg PO DAILY 01/21/19 12/05/19 pen needle, diabetic 32 gauge x #50 ea 01/23/19 12/05/19 1/" blood sugar diagnostic #10 ea 12/05/19 12/05/19 lancets 33 gauge #100 ea 12/05/19 12/05/19 omeprazole 40 mg capsule,delayed 40 mg PO DAILY cap 12/05/19 12/05/19 release solifenacin 5 mg tablet 5 mg PO DAILY 12/05/19 12/05/19 venlafaxine 75 mg capsule,extended 225 mg PO DAILY cap 12/05/19 12/05/19 release 24 hr Previous Rx's Medication Instructions Recorded rosuvastatin 10 mg tablet 10 mg PO DAILY #30 tab 12/03/18 cetirizine 10 mg capsule 10 mg PO DAILY #30 cap 01/14/19 acetaminophen [Mapap 650 mg PO Q4H PRN #30 tab 01/25/19 (acetaminophen)] levothyroxine 75 mcg capsule 75 mcg PO DAILY #30 cap 03/24/19 Novolog Mix 70-30 FlexPen U-100 56 units SQ BID #45 ml NS 05/12/19 Insulin 100 unit/mL subcutaneous pen lisinopril 20 mg tablet 20 mg PO DAILY #90 tab 08/14/19 lorazepam 0.5 mg tablet 0.5 mg PO TID PRN #30 tab 11/11/19 hydroxyzine HCl 10 mg tablet 10 mg PO HS PRN #90 tab 11/19/19 gabapentin 300 mg capsule 600 mg PO BID #360 cap 11/24/19 Results & Data (ED) Vital Signs Vital Signs - 24 hr 12/05/19 17:20 12/05/19 17:35 12/05/19 17:37 Temperature 37.4 C Temperature Source Oral Pulse Rate 105 H 99 H Pulse Rate from SpO2 Sensor 98 H Respiratory Rate 18 Respiratory Effort / Characteristics Non-Labored Respiratory Depth Normal Blood Pressure 173/124 H 173/124 H Blood Pressure Mean 140 150 Pulse Oximetry 97 95 Oxygen Delivery Method Room Air Room Air Sepsis Recent Fever Within 48 Hours No Sepsis New/Unexplained Change in Mental Status No Sepsis Action Taken by Nursing No Action Required 12/05/19 17:40 12/05/19 17:45 12/05/19 17:46 Temperature Temperature Source Pulse Rate 101 H 102 H 104 H Pulse Rate from SpO2 Sensor 95 H 101 H 105 H Respiratory Rate Respiratory Effort / Characteristics Respiratory Depth Blood Pressure Blood Pressure Mean Pulse Oximetry 96 98 97 Oxygen Delivery Method Sepsis Recent Fever Within 48 Hours Sepsis New/Unexplained Change in Mental Status Sepsis Action Taken by Nursing 12/05/19 17:50 12/05/19 17:55 Temperature Temperature Source Pulse Rate 106 H 102 H Pulse Rate from SpO2 Sensor 106 H 102 H Respiratory Rate Respiratory Effort / Characteristics Respiratory Depth Blood Pressure 174/129 H Blood Pressure Mean 145 Pulse Oximetry 97 97 Oxygen Delivery Method Sepsis Recent Fever Within 48 Hours Sepsis New/Unexplained Change in Mental Status Sepsis Action Taken by Nursing Laboratory Data Result diagrams: 12/05/19 17:51 12/05/19 17:51 Lab Results 12/05/19 12/05/19 12/05/19 Range/Units 17:37 17:51 17:51 WBC 18.57 H (4.8-10.8) K/uL RBC 5.98 H (4.2-5.4) M/uL Hgb 18.7 H (12.0-16.0) g/dL Hct 53.8 H (37-47) % MCV 90.0 (80-100) fL MCH 31.3 (25-34) pg MCHC 34.8 (32-36) g/dL RDW Std Deviation 45.9 (36.4-46.3) fL RDW Coeff of [place] 14.2 (11.5-14.5) % Plt Count 268 (130-400) K/uL MPV 12.4 H (7.4-10.4) fL Immature Gran % (Auto) 0.2 % Neut % (Auto) 61.4 % Lymph % (Auto) 30.3 % [place]ancock % (Auto) 6.8 % Eos % (Auto) 1.2 % Baso % (Auto) 0.1 % Neut # (Auto) 11.41 H (1.4-6.5) K/uL Lymph # (Auto) 5.62 H (1.2-3.4) K/uL Hancock # (Auto) 1.27 H (0.11-0.59) K/uL Eos # (Auto) 0.22 (0-0.5) K/uL Baso # (Auto) 0.01 (0-0.2) K/uL Immature Gran # (Auto) 0.04 H (0.00-0.02) K/uL PT (9.0-12.0) Seconds INR (0.9-1.1) APTT (21.0-31.0) Seconds PTT Ratio Sodium (136-145) mmol/L Potassium (3.5-5.1) mmol/L Chloride (98-107) mmol/L Carbon Dioxide (21-32) mmol/L Anion Gap (3-11) BUN (7-18) mg/dl Creatinine (0.6-1.2) mg/dl Est Cr Clr Drug Dosing ml/min Est GFR ( Amer) Est GFR (Non-Af Amer) BUN/Creatinine Ratio (10-20) Glucose (70-99) mg/dl POC Glucose 155 H (70-99) mg/dl Calcium (8.5-10.1) mg/dl Magnesium (1.8-2.4) mg/dl Total Bilirubin (0.2-1) mg/dl AST (15-37) U/L ALT (12-78) U/L Alkaline Phosphatase (45-117) U/L Troponin I (0-0.045) ng/ml Total Protein (6.4-8.2) gm/dl Albumin (3.4-5.0) gm/dl Globulin (2.5-4.0) gm/dl Albumin/Globulin Ratio (0.9-2) TSH (0.300-4.500) uIu/ml Specimen Hemolysis Blood Type O Positive Antibody Screen NEGATIVE 12/05/19 12/05/19 Range/Units 17:51 17:51 WBC (4.8-10.8) K/uL RBC (4.2-5.4) M/uL Hgb (12.0-16.0) g/dL Hct (37-47) % MCV (80-100) fL MCH (25-34) pg MCHC (32-36) g/dL RDW Std Deviation (36.4-46.3) fL RDW Coeff of [place] (11.5-14.5) % Plt Count (130-400) K/uL MPV (7.4-10.4) fL Immature Gran % (Auto) % Neut % (Auto) % Lymph % (Auto) % Hancock % (Auto) % Eos % (Auto) % Baso % (Auto) % Neut # (Auto) (1.4-6.5) K/uL Lymph # (Auto) (1.2-3.4) K/uL Hancock # (Auto) (0.11-0.59) K/uL Eos # (Auto) (0-0.5) K/uL Baso # (Auto) (0-0.2) K/uL Immature Gran # (Auto) (0.00-0.02) K/uL PT 11.0 (9.0-12.0) Seconds INR 1.0 (0.9-1.1) APTT 27.1 (21.0-31.0) Seconds PTT Ratio 1.0 Sodium 138 (136-145) mmol/L Potassium 3.6 (3.5-5.1) mmol/L Chloride 102 (98-107) mmol/L Carbon Dioxide 28 (21-32) mmol/L Anion Gap 8.0 (3-11) BUN 15 (7-18) mg/dl Creatinine 1.39 H (0.6-1.2) mg/dl Est Cr Clr Drug Dosing 34.7 ml/min Est GFR ( Amer) 41.7 Est GFR (Non-Af Amer) 36.0 BUN/Creatinine Ratio 10.8 (10-20) Glucose 151 H (70-99) mg/dl POC Glucose (70-99) mg/dl Calcium 9.6 (8.5-10.1) mg/dl Magnesium 1.8 (1.8-2.4) mg/dl Total Bilirubin 1.0 (0.2-1) mg/dl AST 22 (15-37) U/L ALT 29 (12-78) U/L Alkaline Phosphatase 97 (45-117) U/L Troponin I < 0.015 (0-0.045) ng/ml Total Protein 8.2 (6.4-8.2) gm/dl Albumin 4.1 (3.4-5.0) gm/dl Globulin 4.1 H (2.5-4.0) gm/dl Albumin/Globulin Ratio 1.0 (0.9-2) TSH 1.280 (0.300-4.500) uIu/ml Specimen Hemolysis Blood Type Antibody Screen Administered Medications Magnesium Sulfate/Dextrose (Magnesium Sulfate / D5w) 1 gm in 100 mls @ 200 mls/hr IV Q30M [facility] Stop: 12/05/19 19:29 Last Admin: 12/05/19 18:44 Dose: 200 mls/hr Documented by: [id number] Ioversol (Optiray 320 125ml) 118 ml IV ONCE PRN PRN Reason: Interaction Checking Stop: 12/09/19 17:18 Last Admin: 12/05/19 17:19 Dose: 118 ml Documented by: [id number] Discontinued Medications Sodium Chloride (Nss 1000ml) 1,000 mls @ 999 mls/hr IV .Q1H1M ONE Stop: 12/05/19 18:51 Last Admin: 12/05/19 18:44 Dose: 999 mls/hr Documented by: [id number] Discharge Plan Visit Data Chief Complaint: Stroke/CVA Symptoms Stated Complaint: stroke alert ED Provider: Jeffy Suresh Discharge Problem: Stroke, Aphasia Patient Disposition: Being Evaluated by Hospitalist Prescriptions Prescriptions: No Action Tirosint 75 mcg capsule 75 mcg PO DAILY Qty: 30 RF: 1 Novolog Mix 70-30FlexPen U-100 100 unit/mL (70-30) insulin pen 56 units SQ BID Qty: 45 RF: 5 lisinopril 20 mg tablet 20 mg PO DAILY Qty: 90 RF: 3 lorazepam 0.5 mg tablet 0.5 mg PO TID PRN (Reason: Anxiety or muscle spasm) Qty: 30 RF: 0 hydroxyzine HCl 10 mg tablet 10 mg PO HS PRN (Reason: itching) Qty: 90 RF: 1 rosuvastatin 10 mg tablet 10 mg PO DAILY Qty: 30 RF: 2 gabapentin 300 mg capsule 600 mg PO BID Qty: 360 RF: 1 cetirizine 10 mg capsule 10 mg PO DAILY Qty: 30 RF: 3 (DME) pen needle, diabetic [BD Ultra-Fine Micro Pen Needle] 32 gauge x 1/4" needle See Dose Instructions .ROUTE .MEDSUPPLY Qty: 50 RF: 0 (DME) OneTouch Ultra Blue Test Strip Strip See Dose Instructions .ROUTE .MEDSUPPLY Qty: 10 RF: 0 (DME) lancets [OneTouch Delica Lancets] 33 gauge misc See Dose Instructions .ROUTE .MEDSUPPLY Qty: 100 RF: 0 solifenacin 5 mg tablet 5 mg PO DAILY RF: 0 omeprazole 40 mg capsule,delayed release(DR/EC) 40 mg PO DAILY RF: 0 venlafaxine 75 mg capsule,extended release 24hr 225 mg PO DAILY RF: 0 aspirin 81 mg tablet,chewable 81 mg PO DAILY RF: 0 acetaminophen [Mapap (acetaminophen)] 325 mg Tablet 650 mg PO Q4H PRN (Reason: pain) Qty: 30 RF: 0 PreserVision Lutein 226 mg-200 unit -5 mg-0.8 mg Capsule 1 cap PO DAILY RF: 0 Referrals Referrals: José Miguel De La Cruz MD [Primary Care Provider] - Discharge Problem: Stroke Qualifiers: CVA mechanism: unspecified Qualified Code(s): I63.9 - Cerebral infarction, unspecified
[2019-12-05 18:31] LABS: Alanine Aminotransferase 29 U/L (12-78); Alkaline Phosphatase 97 U/L (45-117); Globulin 4.1 gm/dl (2.5-4.0); Total Protein 8.2 gm/dl (6.4-8.2); Troponin I < 0.015 ng/ml (0-0.045)
[2019-12-05] MEDS: MAGNESIUM SULFATE / D5W 1 GM/100 ML BAG IV SCH ×2 (18:44→19:38)
[2019-12-05 18:56] LABS: Basophils # (auto) 0.01 K/uL (0-0.2); Basophils % (auto) 0.1 %; Eosinophils # (auto) 0.22 K/uL (0-0.5); Eosinophils % (auto) 1.2 %; Immature Granulocytes # (auto) 0.04 K/uL (0.00-0.02); Immature Granulocytes % (auto) 0.2 %; Lymphocytes # (auto) 5.62 K/uL (1.2-3.4); Lymphocytes % (auto) 30.3 %; Monocytes # (auto) 1.27 K/uL (0.11-0.59); Monocytes % (auto) 6.8 %; Neutrophils # (auto) 11.41 K/uL (1.4-6.5); Neutrophils % (auto) 61.4 %
--- NOTE | 2019-12-05 19:59 | History & Physical Report ---
Date of Service December 05, 2019 Assessment & Plan (1) Aphasia: 79yo C female with HTN/HLP/DM/CKD, multiple cerebral artery aneurysms s/p coiling of left PICA in 2016 presenting with expressive aphasia, reported right sided weakness. Patient afebrile, tachycardic and hypertensive. She has si gnificant expressive aphasia and diminished strength of left hand machine ii trimmer. Otherwise, neurological exam is largely unremarkable. 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 She had coiling of the left PICA performed at [facility] in 2016. She currently follows with them for serial images, unsure when last evaluated for this issue. NO evidence of rupture or leaking noted on imaging. Patient has a loop recorder in place with some mention of atrial arrhythmia, no firm diagnosis of atrial fibrillation or atrial flutter. Patient was seen by Cardiology on 12/03/19. Concern for TIA vs CVA causing patient's expressive aphasia. Less likely secondary to underlying aneurysm - unsure if these are expanding in size -Admit to PCU, telemetry monitoring, Neuro checks and NIHSS per protocol -Dysphagia screening, advance diet as tolerated if able -Hold antihypertensives to allow for permissive hypertension -Check MRI brain - patient had aneurysm coiling in 2016 and has a loop recorder in place which may interfere with image quality -Check 2D echocardiogram - she has "atrial aneurysm" listed on her problem list, however, I am unable to find an echo in the system that shows this finding -Last HgbA1c on 11/24/19 elevated at 12.0 - will not repeat -Last Lipid panel on 11/24/19 - Cholesterol elevated at 261 JXH=636 HDL=58 VLDL=42 XI=579 - will not repeat -Will continue ASA 81mg po daily -Initiate Plavix 75mg po daily -Increase Crestor to 20mg po daily -Neurology consultation per protocol appreciated -PT/OT and Speech evaluation appreciated -Will request most recent imaging and Neurology records from [facility] to assess stability of aneurysms Present on Admission?: Yes (2) Aneurysm, cerebral, nonruptured: Per CTA Head and Neck patient with 2.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 Per [facility] Neurology note from 10/02/18 MRA noted stable appearance of coiled left PICA aneurysm and stable 3mm aneurysm of the right MCA bifurcation as well as absence of flow the proximal right V4 segment. Not sure if this is the most recent imaging result or office note. ?why patient with multiple aneurysm - ?collagen vascular disorder? 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 She follows with Endocrinology, last seen today prior to arrival to the ER. Patient is currently on Novolog 70/30, 56u before breakfast and dinner. Her HgbA1c on 11/24/19 was elevated at 12%. She reports that her fasting blood sugars are in the 200- 300's. -Hold 70/30 while inpatient -Lantus 9u BID and ISS, goal blood sugar 100-140 -Continue ASA -Holding Lisinopril as above -Increase Crestor to 20mg po daily -CC diet as tolerated once dysphagia screen passed Present on Admission?: Yes (5) Hypertension: Blood pressure elevated on arrival in setting of possible cerebral ischemia. Presently 175/98 -Hold Lisinopril 20mg daily to allow for permissive hypertension -Continue to monitor Present on Admission?: Yes (6) Hyperlipidemia: Patient with elevated cholesterol and triglycerides, currently on Crestor 10mg po daily. ?compliance with this medication -Increase Crestor to 20mg po daily Present on Admission?: Yes (7) Anxiety: Chronic -Continue Venlafaxine 225mg po daily -Continue Hydroxyzine qHS PRN -Hold PRN ativan for now Present on Admission?: Yes (8) Hypothyroidism: Chronic. TSH within normal limits at 1.28 -Continue Synthroid 75mcg po daily Present on Admission?: Yes (9) Sleep apnea: Chronic. Patient requesting her CPAP -CPAP [id number] qHS Present on Admission?: Yes (10) CLL (chronic lymphocytic leukemia): Chronic. WBC=18.5 today which is near baseline -Continue to monitor CBC Present on Admission?: Yes (11) Gastroesophageal reflux disease: Chronic. Stable -Continue Protonix 40mg po daily Present on Admission?: Yes (12) Chronic kidney disease, stage 3: BUN and Cr near baseline values -Avoid nephrotoxic agents -Monitor BUN/Cr/electrolytes/UOP Present on Admission?: Yes (13) Lumbar stenosis with neurogenic claudication: MRI lumbar spine on 01/20 showed severe central canal stenosis at L2-L3 with moderate to severe central canal stenosis at L4-L5.. Patient was seen by Orthopedic Surgery who did not recommend surgical intervention at this time. No Cauda equina syndrome. -PT/OT as above -Pain control F/E/N - Heplock. Monitor electrolytes. AHA/CC diet as tolerated after dysphagia screening Ppx - SCDs Code - Full Dispo - Admit to PCU Present on Admission?: Yes Admission and Anticipated Discharge Date Admission Date: 12/05/19 Anticipated date of discharge: 12/06/19 History of Present Illness Chief Complaint: Stroke-like symptoms Primary Care Provider: Sumit De La Cruz MD Sharon Ochoa is a 79yo C female with history of DM, HLP, CKD, AF presenting with stroke-like symptoms. She was in her usual state of health earlier in the day. Around 13:00 she was returning home from an appointment with Endocrinology when she developed some difficulty ambulating, possibly some right sided weakness. Her symptoms somewhat improved, however, around 15:00 she developed some speech difficulty and worsening right sided weakness. Upon arrival to the ER patient found to be afebrile, sinus tachycardic and hypertensive. Initial neurological exam with significant receptive expressive aphasia as well as left hand machine ii trimmer weakness, otherwise unremarkable. Code Stroke was called and the case was discussed with Stroke team at [facility]. No tPA recommended. Patient is to complete stroke workup and be managed with DAPT and high intensity statin. Patient offers no complaints at this time. She denies WHIPPLE, visual deficit, numbness/weakness. She has expressive aphasia and becomes frustrated while trying to communicate. She has a loop recorder in place for evaluation of syncope. She was last seen by Cardiology on 12/03/19 and noted to have no significant arrhythmias but occasional atrial arrhythmia, two arrhythmias with wide complex most likely representing aberrancy. Per [facility] records: patient was diagnosed with 3.4mm x 2.1mm aneurysm of the right MCA bifurcation and 4.5mm x 3.2 mm superiorly projecting broad based aneurysm of the left V4 segment. 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 Allergies Allergy/AdvReac Type Severity Reaction Status Date / Time adhesive Allergy Intermediate BLISTERS Verified 12/05/19 10:29 clopidogrel Allergy Unknown GI UPSET Verified 12/05/19 10:29 liraglutide Allergy Unknown GI UPSET Verified 12/05/19 10:29 phenol Allergy Unknown GI UPSET Verified 12/05/19 10:29 propylene glycol Allergy Unknown GI UPSET Verified 12/05/19 10:29 amitriptyline AdvReac Severe HALLUCINATI Verified 12/05/19 10:29 ONS atorvastatin AdvReac Intermediate JOINT PAIN Verified 12/05/19 10:29 cephalexin AdvReac Intermediate N/V Verified 12/05/19 10:29 pioglitazone AdvReac Intermediate SEVERE Verified 12/05/19 10:29 FATIGUE tramadol AdvReac Intermediate N/V Verified 12/05/19 10:29 codeine AdvReac Mild NAUSEA AND Verified 12/05/19 10:29 VOMITING metformin AdvReac Mild NAUSEA AND Verified 12/05/19 10:29 VOMITING doxycycline AdvReac Unknown GI SYMPTOMS Verified 12/05/19 10:29 saccharin AdvReac Unknown diarrhea Verified 12/05/19 10:29 hydroxychloroquine AdvReac Diarrhea Verified 12/05/19 10:29 [From Plaquenil] zoster vaccine live AdvReac Verified 12/05/19 10:29 [From Zostavax (PF)] Home Medications Home Medications Medication Instructions Recorded Confirmed Type PreserVision Lutein 1 cap PO DAILY 09/04/18 12/05/19 History rosuvastatin 10 mg tablet 10 mg PO DAILY #30 tab 12/03/18 12/05/19 Rx cetirizine 10 mg capsule 10 mg PO DAILY #30 cap 01/14/19 12/05/19 Rx aspirin 81 mg PO DAILY 01/21/19 12/05/19 History pen needle, diabetic 32 gauge x #50 ea 01/23/19 12/05/19 History 1/4" acetaminophen [Mapap 650 mg PO Q4H PRN #30 tab 01/25/19 12/05/19 Rx (acetaminophen)] levothyroxine 75 mcg capsule 75 mcg PO DAILY #30 cap 03/24/19 12/05/19 Rx Novolog Mix 70-30 FlexPen U-100 56 units SQ BID #45 ml NS 05/12/19 12/05/19 Rx Insulin 100 unit/mL subcutaneous pen lisinopril 20 mg tablet 20 mg PO DAILY #90 tab 08/14/19 12/05/19 Rx lorazepam 0.5 mg tablet 0.5 mg PO TID PRN #30 tab 11/11/19 12/05/19 Rx hydroxyzine HCl 10 mg tablet 10 mg PO HS PRN #90 tab 11/19/19 12/05/19 Rx gabapentin 300 mg capsule 600 mg PO BID #360 cap 11/24/19 12/05/19 Rx blood sugar diagnostic #10 ea 12/05/19 12/05/19 History lancets 33 gauge #100 ea 12/05/19 12/05/19 History omeprazole 40 mg capsule,delayed 40 mg PO DAILY cap 12/05/19 12/05/19 History release solifenacin 5 mg tablet 5 mg PO DAILY 12/05/19 12/05/19 History venlafaxine 75 mg capsule,extended 225 mg PO DAILY cap 12/05/19 12/05/19 History release 24 hr Past Med/Surg History Social History Preferred Language: Norwegian Communication Ability: Impaired Communication Ability Comment: Expressive Aphasia Oven Tender Required: No Beliefs That Will Affect Care: None marital status: Current Living Situation: Spouse Current Living Situation Comment: Home Other Information That Helps Us Care for You: No Feels Safe at Home: Yes Safety Concerns: Feels Safe At This Time Smoking Status: Current every day smoker Tobacco Type: cigarettes ; Age Started Using Tobacco: 16 ; Cigarettes Per Day: 2 ; Second Hand Exposure: Yes ; Hx Alcohol Use: No Hx Substance Use: No Review of Systems Review of Systems: All systems reviewed & are unremarkable except as noted in HPI & below Difficult to obtain ROS due to expressive aphasia Physical Exam Physical Exam: General: patient resting comfortably, NAD, non-toxic in appearance, expressive aphasia, patient able to answer to name only for orientation Skin: warm, dry, intact, no rashes or lesions HEENT: NC/AT, PERRL, EOMI, anicteric sclera, conjunctiva without injection, external ear normal to inspection and nontender, nares patent, moist mucus membranes, dentition intact, no oropharyngeal lesions, neck supple, trachea midline, no LAD, no thyromegaly, no JVD Heart: +S1/S2, regular, tachycardic, no m/r/g Lungs: equal air entry bilaterally, no rales/rhonchi/wheezes Abd: +BS, soft, NT/ND, no masses/organomegaly/ascites Ext: warm, 2+ pulses in UE/LE bilaterally, no clubbing/cyanosis or edema Neuro: Expressive aphasia, patient becomes frustrated while trying to speak, she is able to tell me her name and answer some questions. Speech is clear but delayed with word-finding issues, occasional misuse of words, no facial droop, EOMI, sensation to light touch seems to be intact, weakness of left hand machine ii trimmer otherwise MS is intact 5/5, gait not assessed Results & Data Results & Data ([facility]) Vital Signs (Past 12 Hours) Vital Signs Temp Pulse Pulse Resp BP BP Pulse Ox 12/05/19 19:31 101 H 16 139/97 99 12/05/19 17:55 102 H 174/129 H 97 12/05/19 17:50 106 H 97 12/05/19 17:46 104 H 97 12/05/19 17:45 102 H 98 12/05/19 17:40 101 H 96 12/05/19 17:37 99 H 173/124 H 95 12/05/19 17:35 37.4 C 105 H 18 173/124 H 97 Laboratory Results Lab Results 12/05/19 12/05/19 12/05/19 Range/Units 17:37 17:51 17:51 WBC 18.57 H (4.8-10.8) K/uL RBC 5.98 H (4.2-5.4) M/uL Hgb 18.7 H (12.0-16.0) g/dL Hct 53.8 H (37-47) % MCV 90.0 (80-100) fL MCH 31.3 (25-34) pg MCHC 34.8 (32-36) g/dL RDW Std Deviation 45.9 (36.4-46.3) fL RDW Coeff of [place] 14.2 (11.5-14.5) % Plt Count 268 (130-400) K/uL MPV 12.4 H (7.4-10.4) fL Immature Gran % (Auto) 0.2 % Neut % (Auto) 61.4 % Lymph % (Auto) 30.3 % [place] % (Auto) 6.8 % Eos % (Auto) 1.2 % Baso % (Auto) 0.1 % Neut # (Auto) 11.41 H (1.4-6.5) K/uL Lymph # (Auto) 5.62 H (1.2-3.4) K/uL [place] # (Auto) 1.27 H (0.11-0.59) K/uL Eos # (Auto) 0.22 (0-0.5) K/uL Baso # (Auto) 0.01 (0-0.2) K/uL Immature Gran # (Auto) 0.04 H (0.00-0.02) K/uL PT (9.0-12.0) Seconds INR (0.9-1.1) APTT (21.0-31.0) Seconds PTT Ratio Sodium (136-145) mmol/L Potassium (3.5-5.1) mmol/L Chloride (98-107) mmol/L Carbon Dioxide (21-32) mmol/L Anion Gap (3-11) BUN (7-18) mg/dl Creatinine (0.6-1.2) mg/dl Est Cr Clr Drug Dosing ml/min Est GFR ( Amer) Est GFR (Non-Af Amer) BUN/Creatinine Ratio (10-20) Glucose (70-99) mg/dl POC Glucose 155 H (70-99) mg/dl Calcium (8.5-10.1) mg/dl Magnesium (1.8-2.4) mg/dl Total Bilirubin (0.2-1) mg/dl AST (15-37) U/L ALT (12-78) U/L Alkaline Phosphatase (45-117) U/L Troponin I (0-0.045) ng/ml Total Protein (6.4-8.2) gm/dl Albumin (3.4-5.0) gm/dl Globulin (2.5-4.0) gm/dl Albumin/Globulin Ratio (0.9-2) TSH (0.300-4.500) uIu/ml Specimen Hemolysis Blood Type O Positive Antibody Screen NEGATIVE 12/05/19 12/05/19 Range/Units 17:51 17:51 WBC (4.8-10.8) K/uL RBC (4.2-5.4) M/uL Hgb (12.0-16.0) g/dL Hct (37-47) % MCV (80-100) fL MCH (25-34) pg MCHC (32-36) g/dL RDW Std Deviation (36.4-46.3) fL RDW Coeff of [place] (11.5-14.5) % Plt Count (130-400) K/uL MPV (7.4-10.4) fL Immature Gran % (Auto) % Neut % (Auto) % Lymph % (Auto) % [place] % (Auto) % Eos % (Auto) % Baso % (Auto) % Neut # (Auto) (1.4-6.5) K/uL Lymph # (Auto) (1.2-3.4) K/uL [place] # (Auto) (0.11-0.59) K/uL Eos # (Auto) (0-0.5) K/uL Baso # (Auto) (0-0.2) K/uL Immature Gran # (Auto) (0.00-0.02) K/uL PT 11.0 (9.0-12.0) Seconds INR 1.0 (0.9-1.1) APTT 27.1 (21.0-31.0) Seconds PTT Ratio 1.0 Sodium 138 (136-145) mmol/L Potassium 3.6 (3.5-5.1) mmol/L Chloride 102 (98-107) mmol/L Carbon Dioxide 28 (21-32) mmol/L Anion Gap 8.0 (3-11) BUN 15 (7-18) mg/dl Creatinine 1.39 H (0.6-1.2) mg/dl Est Cr Clr Drug Dosing 34.7 ml/min Est GFR ( Amer) 41.7 Est GFR (Non-Af Amer) 36.0 BUN/Creatinine Ratio 10.8 (10-20) Glucose 151 H (70-99) mg/dl POC Glucose (70-99) mg/dl Calcium 9.6 (8.5-10.1) mg/dl Magnesium 1.8 (1.8-2.4) mg/dl Total Bilirubin 1.0 (0.2-1) mg/dl AST 22 (15-37) U/L ALT 29 (12-78) U/L Alkaline Phosphatase 97 (45-117) U/L Troponin I < 0.015 (0-0.045) ng/ml Total Protein 8.2 (6.4-8.2) gm/dl Albumin 4.1 (3.4-5.0) gm/dl Globulin 4.1 H (2.5-4.0) gm/dl Albumin/Globulin Ratio 1.0 (0.9-2) TSH 1.280 (0.300-4.500) uIu/ml Specimen Hemolysis Blood Type Antibody Screen Diagnostic Findings CT head/brain wo con CLINICAL HISTORY: Stroke evaluation Aphasia COMPARISON STUDY: 11/28/2010 TECHNIQUE: Axial CT of the brain is performed from the vertex to the skull b ase. IV contrast was not administered for this examination. A dose lowering technique was utilized adhering to the principles of ALARA. CT DOSE: 1622.37 mGy.cm FINDINGS: No intra or extra-axial mass lesions are visualized. There is no CT evidence of acute cortical infarction. There is no evidence of midline shift. There is no acute hemorrhage. No calvarial fractures are visualized. There are patchy white matter hypodensities likely on a small vessel basis. 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 There is no evidence of pathologic ventricular dilatation. There is no evidence of acute sinusitis There is radiodense material in the region of the distal vertebral artery possibly representing embolic material from prior intervention. Correlation with prior neuro interventional procedures is recommended. IMPRESSION: No acute intracranial findings ACT 112: Negative or not required by law. Electronically signed by: Donovan Heller M.D. 12/05/2019 5:44 PM Dictated: 12/05/191741 Transcribed: 12/05/191741 CT angio head w con CLINICAL HISTORY: Stroke evaluation TECHNIQUE: CT angiography of the head was performed in a dynamic helical fashion during intravenous administration of 118 cc of Optiray 320. MIP imaging was performed. A dose lowering technique was utilized adhering to the principles of ALARA. CT DOSE: COMPARISON STUDY: No previous studies for comparison. 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 There are postprocedural changes involving the distal left vertebral artery. There is no evidence of major intracranial branch occlusion. There is no evidence of intracranial stenosis. 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 The dural venous sinuses appear patent. IMPRESSION: 1. No evidence of major intracranial branch occlusion or stenosis. 2. Postprocedural changes involving the distal left vertebral artery. 3. 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 4. 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 ACT 112: Negative or not required by law. Electronically signed by: Donovan Heller M.D. 12/05/2019 5:57 PM Dictated: 12/05/191752 Transcribed: 12/05/[address] angio neck with con CLINICAL HISTORY: Stroke evaluation COMPARISON STUDY: No previous studies for comparison. TECHNIQUE: CT angiography was performed from the aortic arch to the skull base. MIP imaging was performed. The patient was scanned in a dynamic helical fashion during intravenous administration of cc of Optiray 320. A dose lowering technique was utilized adhering to the principles of ALARA. CT DOSE: Technique: CT angiogram of the carotid and vertebral arteries was obtained using intravenous contrast and 3-D reconstruction. NASCET criteria was utilized. Findings: There are borderline enlarged mediastinal lymph nodes. There is a 50% stenosis of the proximal right common carotid artery. There is mild atheromatous narrowing of the distal right common carotid artery. There is a short segment dissection involving the proximal right internal carotid artery. There is a 25% diameter narrowing of the proximal right internal carotid artery. There is a 50% diameter narrowing of the proximal left common carotid artery. There is atheromatous change present at the level of the proximal left internal carotid artery with a 40% diameter narrowing. The right vertebral artery is occluded approximately. There is intermittent reconstitution of the cervical right vertebral artery. There is a mild nonhemodynamically significant stenosis involving the left vertebral origin. There is mild multifocal left vertebral artery narrowing not exceeding 50%. There are metallic densities present within the distal left vertebral artery, likely secondary to a prior interventional procedure. Clinical correlation is recommended. IMPRESSION: 1. Bilateral 50% diameter narrowing of the common carotid arteries 2. Atheromatous changes involving both internal carotid arteries without e vidence of hemodynamically significant stenosis. 3. 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 Occlusion of the right vertebral artery with multifocal areas of reconstit ution 5. Multifocal left vertebral artery stenoses not exceeding 50%. Postprocedural changes involving the distal left vertebral artery. ACT 112: Negative or not required by law. Electronically signed by: Donovan Heller M.D. 12/05/2019 5:52 PM Dictated: 12/05/191743 Transcribed: 12/05/191743 ECG Additional Comments: Sinus tachycardia at 101 bpm, normal axis, OS=044, QRS=84, IOq=173, no acute ischemic changes Code Status & VTE Plan Code Status FULL VTE Prophylaxis Plan VTE Prophylaxis will be ordered: Yes PG Care Time/CCT Total # of Minutes Spent Total Time Spent with Patient: Total time spent is greater than 50% in coordination of care (as documented) at patient's floor/unit and/or counseling patient: Coding Level of Care Code 27339 Initial Inpt Care Lvl 3 Diagnoses Aphasia R47.01 Aneurysm, cerebral, nonruptured I67.1 Carotid artery dissection I77.71 Diabetes mellitus type 2, uncontrolled E11.65 Coma presence: without coma Hypertension I10 Hypertension type: essential hypertension Hyperlipidemia E78.2 Hyperlipidemia type: mixed hyperlipidemia Anxiety F41.9 Hypothyroidism E03.9 Hypothyroidism type: unspecified Sleep apnea G47.30 Sleep apnea type: unspecified type CLL (chronic lymphocytic leukemia) C91.90 Gastroesophageal reflux disease K21.9 Esophagitis presence: esophagitis presence not specified Chronic kidney disease, stage 3 N18.3 Lumbar stenosis with neurogenic claudication M48.062 (1) Sleep apnea Sleep apnea type: unspecified type Qualified Code(s): G47.30 - Sleep apnea, unspecified (2) Hyperlipidemia Hyperlipidemia type: mixed hyperlipidemia Qualified Code(s): E78.2 - Mixed hyperlipidemia (3) Hypothyroidism Hypothyroidism type: unspecified Qualified Code(s): E03.9 - Hypothyroidism, unspecified (4) Diabetes mellitus type 2, uncontrolled Coma presence: without coma (5) Gastroesophageal reflux disease Esophagitis presence: esophagitis presence not specified Qualified Code(s): K21.9 - Gastro-esophageal reflux disease without esophagitis (6) Hypertension Hypertension type: essential hypertension Qualified Code(s): I10 - Essential (primary) hypertension
[2019-12-05] MEDS ORDERED: DEXTROSE 50% 50 ML SYRINGE IV PRN (20:55)
[2019-12-05] MEDS ORDERED: CARBOHYDRATES FOR HYPOGLYCEMIA PO PRN (20:55)
[2019-12-05] MEDS ORDERED: GLUCAGON FOR INJ 1 MG VIAL SQ PRN (20:55)
[2019-12-05] MEDS ORDERED: GLUCOSE 40% GEL 15 GM TUBE PO PRN (20:55)
[2019-12-05] MEDS ORDERED: GLUCOSE 10 TABS/TUBE PO PRN (20:55)
[2019-12-05] MEDS: INSULIN GLARGINE SOLOSTAR 100 UNITS/ML 3 ML PEN SC SCH (22:43)
[2019-12-05] MEDS: INSULIN ASPART 100 UNITS/ML 3 ML PEN SC SCH (22:43)
[2019-12-05] MEDS: GABAPENTIN 600 MG TAB PO SCH (22:48)
[2019-12-06] MEDS: LEVOTHYROXINE SODIUM 75 MCG TABLET PO SCH (06:13)
--- NOTE | 2019-12-06 07:36 | Electrocardiogram Report ---
Test Reason : Blood Pressure : / mmHG Vent. Rate : 101 BPM Atrial Rate : 101 BPM P-R Int : 202 ms QRS Dur : 084 ms QT Int : 380 ms P-R-T Axes : 079 -03 078 degrees QTc Int : 492 ms Sinus tachycardia Inferior infarct , age undetermined Nonspecific T wave abnormality Abnormal ECG When compared with ECG of 22-JAN-2019 09:40, Inferior infarct is now Present Confirmed by Mohit Avilez ([id number]) on 12/06/2019 7:35:55 AM Referred By: REFERRED SELF Confirmed By:Mohit Avilez
[2019-12-06 08:30] LABS: Hematocrit (blood only) 50.3 % (37-47); Hemoglobin 17.3 g/dL (12.0-16.0); Mean Corpuscular Hemoglobin 31.2 pg (25-34); Mean Corpuscular Hgb Conc 34.4 g/dL (32-36); Mean Corpuscular Volume 90.8 fL (80-100); Platelet Count 262 K/uL (130-400); RDW Coefficient of Variation 14.5 % (11.5-14.5); RDW Standard Deviation 48.4 fL (36.4-46.3); Red Blood Count 5.54 M/uL (4.2-5.4); White Blood Count 13.98 K/uL (4.8-10.8)
[2019-12-06] MEDS: INSULIN GLARGINE SOLOSTAR 100 UNITS/ML 3 ML PEN SC SCH ×2 (08:37→21:50)
[2019-12-06] MEDS: INSULIN ASPART 100 UNITS/ML 3 ML PEN SC SCH ×4 (08:38→21:50)
[2019-12-06] MEDS: ROSUVASTATIN CALCIUM 20 MG TAB PO SCH (08:39)
[2019-12-06] MEDS: ASPIRIN 81 MG ECTAB PO SCH (08:39)
[2019-12-06] MEDS: PANTOprazole 40 MG TAB PO SCH (08:39)
[2019-12-06] MEDS: VENLAFAXINE HCL XR 75 MG CAPXR PO SCH (08:39)
[2019-12-06] MEDS: CLOPIDOGREL BISULFATE 75 MG TAB PO SCH (08:39)
[2019-12-06] MEDS: CETIRIZINE HCL 10 MG TABLET PO SCH (08:40)
[2019-12-06] MEDS: GABAPENTIN 600 MG TAB PO SCH ×2 (08:40→21:50)
--- NOTE | 2019-12-06 08:47 | Neurology Consultation ---
Date of Consultation December 06, 2019 Assessment & Plan (1) Acute CVA (cerebrovascular accident): (2) Aphasia: (3) Acute right hemiparesis: (4) Aneurysm, cerebral, nonruptured: (5) Diabetes mellitus type 2, uncontrolled: (6) Hypertension: (7) Hyperlipidemia: (8) Lumbar stenosis with neurogenic claudication: (9) Carotid stenosis, bilateral: (10) CLL (chronic lymphocytic leukemia): (11) Sleep apnea: This patient likely suffered an acute left hemispheric stroke December 04 resulting in expressive aphasia and right alexa paresis. Her speech and weakness seem to be better compared to admission. The stroke was likely small-vessel ischemic disease secondary to hypertensive/diabetic vascular disease. This happened despite taking 81 mg aspirin tablet daily. She had markedly elevated blood pressure yesterday and possibly a hypertensive encephalopathy (she does not really remember yesterday). Recent hemoglobin A1c was 12, therefore glucose is not adequately controlled. She also has sleep apnea and does not wear CPAP at night. This could lead to hypoxia and fatigue. Other stroke risk factors include dyslipidemia. She recently had elevated triglycerides and total cholesterol despite 10 mg rosuvastatin daily. Patient has a history of multiple unruptured cerebral aneurysms, post left Pica coiling repair in 2016. Her current aneurysms are small and probably stable, although it I do not have a direct comparison to previous study. There is a small short-segment carotid dissection noted on the right. There is also carotid stenosis bilaterally. In addition the patient has chronic lymphocytic leukemia with stable counts. Patient has more recently increased fatigue and sleepiness which is likely multifactorial including sleep apnea, CLL, diabetes, hypertension, etc. Recommendations: 1. Control blood pressure as you are doing, aiming for a mean arterial pressure of 100 2. Controlled glucose better trying to get the hemoglobin A1c back to single digits. 3. Increase statin to better control lipids. Given her aneurysms and age I am not certain she is the best high dose statin candidate and I would aim for standard doses. 4. Add clopidogrel 75 mg daily to the 81 mg aspirin daily. 5. MRI of the brain with and without contrast. Contrast is desired given her history of CLL and breast cancer in the past 6. Physical, occupational, and speech therapy consults. Increase activity as able. Overall, I spent a total of 70 minutes with this case including review of records, direct evaluation the patient at bedside, and discussing the case with the patient and RN at bedside as well as Dr. Mendoza, including differential diagnosis and treatment options. History of Present Illness Reason for Consultation: Patient is a 79-year-old, who I was asked to see at the request of Dr. Myers, for neurologic evaluation regarding stroke. Requesting Physician: Dr. Green Attending Physician: Andrey Mendoza, DO History of Present Illness Patient has a longstanding history of hypertension, diabetes, dyslipidemia, and sleep apnea. She has chronic lymphocytic leukemia with elevated white count. In addition she has a history of multiple cerebral aneurysms post left PICA coiling procedure at [facility] in 2016. She has chronic low back pain from significant lumbar spinal stenosis particularly at L2-3 and L4-5. There is a history of breast cancer in the past. She has chronic kidney disease. Over the last month or so the patient says she has been very sleepy and fatigued. Laboratory studies done November 23 of this year revealed a white count of 14.9 and an elevated hemoglobin and hematocrit of 16.8 and 51.6. Lymphocyte count was elevated. Chem profile was remarkable for glucose of 207 and hemoglobin A1c of 12.0. Triglycerides were 209 and total cholesterol 261. Vitamin-D was low at 23 and TSH was normal at 1.2. She does not recall events of yesterday really isn't sure why she is in the hospital this morning. Apparently she was noted to have some right-sided weakness around 1300 on December 04. By 1500 she was noted to have word-finding difficulties and some confusion with worsening weakness. She arrived to the emergency room December 04 1734 with a temperature 37.4, pulse 105 and regular, respiratory rate 18, blood pressure 173/124 and O2 saturation 97%. On neurologic examination she was anxious and would not give any kind of significant history. She had an obvious aphasia and the concern was whether was mixed receptive and expressive. 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 CBC showed elevated counts as before and Chem profile revealed a creatinine of 1.39 and a glucose of 151. CT scan of the head showed no acute changes. CT angiography of the head revealed no major intracranial branch occlusion or stenosis. There were post procedural changes in the distal left vertebral artery and there was a 2.5 mm aneurysm in the proximal basilar artery with a 3.5 mm aneurysm in the right middle cerebral artery trifurcation. CT angiography of the neck revealed approximately 50% narrowing of the common carotid arteries. There was a short segment dissection of the proximal right internal carotid artery also. Right vertebral artery had occlusion with multifocal areas of reconstitution. The left vertebral artery showed stenoses less than 50%. This morning the patient has no complaint of pain or headache. She has a little dizzy with sitting up but has no specific vision problems. She feels tired and sleepy. Blood pressure this morning was 117/58 with a pulse of 92. She remained afebrile and has been in normal sinus rhythm since admission. Allergies Allergy/AdvReac Type Severity Reaction Status Date / Time adhesive Allergy Intermediate BLISTERS Verified 12/05/19 10:29 clopidogrel Allergy Unknown GI UPSET Verified 12/05/19 10:29 liraglutide Allergy Unknown GI UPSET Verified 12/05/19 10:29 phenol Allergy Unknown GI UPSET Verified 12/05/19 10:29 propylene glycol Allergy Unknown GI UPSET Verified 12/05/19 10:29 amitriptyline AdvReac Severe HALLUCINATI Verified 12/05/19 10:29 ONS atorvastatin AdvReac Intermediate JOINT PAIN Verified 12/05/19 10:29 cephalexin AdvReac Intermediate N/V Verified 12/05/19 10:29 pioglitazone AdvReac Intermediate SEVERE Verified 12/05/19 10:29 FATIGUE tramadol AdvReac Intermediate N/V Verified 12/05/19 10:29 codeine AdvReac Mild NAUSEA AND Verified 12/05/19 10:29 VOMITING metformin AdvReac Mild NAUSEA AND Verified 12/05/19 10:29 VOMITING doxycycline AdvReac Unknown GI SYMPTOMS Verified 12/05/19 10:29 saccharin AdvReac Unknown diarrhea Verified 12/05/19 10:29 hydroxychloroquine AdvReac Diarrhea Verified 12/05/19 10:29 [From Plaquenil] zoster vaccine live AdvReac Verified 12/05/19 10:29 [From Zostavax (PF)] Home Medications Home Medications Medication Instructions Recorded Confirmed Type PreserVision Lutein 1 cap PO DAILY 09/04/18 12/05/19 History rosuvastatin 10 mg tablet 10 mg PO DAILY #30 tab 12/03/18 12/05/19 Rx cetirizine 10 mg capsule 10 mg PO DAILY #30 cap 01/14/19 12/05/19 Rx aspirin 81 mg PO DAILY 01/21/19 12/05/19 History pen needle, diabetic 32 gauge x #50 ea 01/23/19 12/05/19 History 1/4" acetaminophen [Mapap 650 mg PO Q4H PRN #30 tab 01/25/19 12/05/19 Rx (acetaminophen)] levothyroxine 75 mcg capsule 75 mcg PO DAILY #30 cap 03/24/19 12/05/19 Rx Novolog Mix 70-30 FlexPen U-100 56 units SQ BID #45 ml NS 05/12/19 12/05/19 Rx Insulin 100 unit/mL subcutaneous pen lisinopril 20 mg tablet 20 mg PO DAILY #90 tab 08/14/19 12/05/19 Rx lorazepam 0.5 mg tablet 0.5 mg PO TID PRN #30 tab 11/11/19 12/05/19 Rx hydroxyzine HCl 10 mg tablet 10 mg PO HS PRN #90 tab 11/19/19 12/05/19 Rx gabapentin 300 mg capsule 600 mg PO BID #360 cap 11/24/19 12/05/19 Rx blood sugar diagnostic #10 ea 12/05/19 12/05/19 History lancets 33 gauge #100 ea 12/05/19 12/05/19 History omeprazole 40 mg capsule,delayed 40 mg PO DAILY cap 12/05/19 12/05/19 History release solifenacin 5 mg tablet 5 mg PO DAILY 12/05/19 12/05/19 History venlafaxine 75 mg capsule,extended 225 mg PO DAILY cap 12/05/19 12/05/19 History release 24 hr Patient History Medical History Allergic rhinitis (Acute) Aneurysm (Acute) "in back of my head" Aneurysm, cerebral, nonruptured (Acute) Asthma (Acute) Asymptomatic hyperuricemia (Acute) Atrial aneurysm (Acute) Atrial fib/flutter, transient (Acute) Breast cancer (Acute) Carotid artery stenosis (Acute) Carpal tunnel syndrome (Acute) Chronic kidney disease, stage 3 (Acute) Chronic obstructive pulmonary disease (Acute) Deep vein thrombosis (Acute) Diabetes mellitus type 2, uncontrolled (Chronic) Diabetic nephropathy (Acute) Diverticulosis (Acute) Gait disturbance (Acute) Gastroesophageal reflux disease (Acute) Hyperlipidemia (Acute) Hyperplastic colon polyp (Acute) Internal hemorrhoids (Acute) Laryngopharyngeal reflux (Acute) Lumbar pain (Acute) Lumbar radiculopathy (Acute) Nicotine dependence (Acute) Nonalcoholic steatohepatitis (Acute) Obesity (Acute) On home oxygen therapy (Acute) Osteoarthritis (Acute) bilateral knees, legs, hands Osteopenia (Acute) Seborrheic keratosis (Acute) Sensorineural hearing loss (SNHL) of both ears (Acute) Short-term memory loss (Acute) Sleep related hypoxia (Acute) TMJ syndrome (Acute) Urinary incontinence (Acute) Vertigo (Acute) Vitamin D deficiency (Acute) Surgical History H/O varicose vein ligation and stripping History of appendectomy (Resolved) History of brain surgery (Resolved) Cerebral angiogram and stent-assisted coil embolization of the It PICA aneurysm. 12/22/2015 History of carotid endarterectomy History of cataract surgery (Resolved) Right: July 2012 Left: August 2012 History of colonoscopy (Resolved) History of hysterectomy (Resolved) Ovaries intact History of mastectomy (Resolved) bilateral September 2009 History of parathyroid surgery (Resolved) Excision of benign neoplasm History of shoulder surgery (Resolved) Right shoulder arthroscopic labral debridement, subacromial decompression, and acromioplasty excision distal clavicle, biceps tenotomy. 06/15/2014 History of total knee replacement (Resolved) left 01/11/2012 Family History Grandmother No problems noted. Father , in his 50s of lung cancer Lung disease Lung cancer Mother , in her 70s of cancer Cancer Hypertension Unknown , Niece at 37 Colon cancer Son Anxiety Depression Kidney stones Alcohol abuse Grandmother (Maternal) Lung cancer Denies family history of Ovarian cancer Prostate cancer Myocardial infarction Breast cancer Bleeding disorder Social History Preferred Language: Tajik Communication Ability: Impaired Communication Ability Comment: Expressive Aphasia Sheeter Helper Required: No Beliefs That Will Affect Care: None marital status: Current Living Situation: Spouse Current Living Situation Comment: Home current occupational status: retired 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 Other Information That Helps Us Care for You: No Feels Safe at Home: Yes Safety Concerns: Feels Safe At This Time Smoking Status: Current every day smoker Tobacco Type: cigarettes ; Age Started Using Tobacco: 16 ; Cigarettes Per Day: 2 ; Second Hand Exposure: Yes ; Hx Alcohol Use: No Hx Substance Use: No Review of Systems Constitutional: + fatigue, + malaise and + weakness; no fever Eyes: no diplopia, no eye pain and no worsening vision Ear, Nose, Mouth, Throat: + dizziness and + snoring; no ear pain, no tinnitus, no hearing loss, no hoarseness and no dysphagia Respiratory: no cough and no dyspnea Cardiovascular: no chest pain, no palpitations and no lightheadedness Gastrointestinal: no abdominal pain, no nausea and no vomiting Genitourinary: no dysuria, no urinary frequency and no urinary incontinence Musculoskeletal: + back pain; no neck pain, no radicular pain, no joint pain and no myalgia Integumentary: no rash and no lesions Neurologic: + gait abnormality, + localized weakness, + generalized weakness, + abnormal speech and + confusion; no tingling, no numbness, no tremor(s), no abnormal movements, no headache(s) and no memory loss Psychiatric: no depression, no irritability, no anxiety, no difficulty concentrating, no confusion and no hallucinations Endocrine: + fatigue; no flushing Hematologic / Lymphatic: no easy bleeding and no easy bruising Allergy / Immunological: no urticaria and no problem reported Exam (Neuro) Physical Exam: The patient is right-handed. Although very sleepy when I 1st woke her, The patient became awake, alert, and attentive. Speech has hesitancy and some word-finding difficulties. She seems to comprehend fairly well although does get confused at times with questions. She will tend disorder questions out and get them accurate. She has mild dysarthria also. She can name objects, repeat phrases, and has reduced spontaneous speech. Mentation and thought processes are reasonable to conver sation, with orientation to name, age, date, year, and president. She was not sure of the month and had trouble with simple calculations. Attention and concentration are reason l. Mood and affect are normal and appropriate. General appearance and grooming are normal. Very short-term memory is poor and intermediate and longer-term memory are mildly impaired. The discs are sharp with positive venous pulsations bilaterally. There are no exudates, hemorrhages, or blood vessel changes seen. Pupils are 4 mm bilaterally and reactive to light. Extraocular eye muscles are intact without nystagmus. Visual acuity and visual clay seem normal grossly to confrontation. There are no deficits to sensation in the face in all 3 distributions of the fifth cranial nerve bilaterally. Corneal reflexes are positive bilaterally. Facial strength and symmetry was normal bilaterally. Hearing seems normal to whisper and finger rub bilaterally. Palate moves well without asymmetry. There is normal sternocleidomastoid and trapezius (shoulder shrug) strength bilaterally. Tongue is midline with good strength bilaterally. Neck has a full range of motion without discomfort. There are no cervical bruits bilaterally. There are no cranial or ocular bruits. Heart is without murmur. There is a regular rhythm and rate. Cervical and thoracic spine are nontender to palpation. Lumbar paraspinal muscles are tender to palpation diffusely. Gait was not tested but stands sitting up in bed is reasonable (although it hurt her back some) With outstretched arms there is no obvious drift. There are no resting, postural, or action tremors. There is no ataxia with finger to nose testing. There is mildly decreased facility in the right hand. No other abnormal involuntary movements are noted. Motor strength is 4/5 diffusely in the right upper extremity. Strength is closer to 5/5 in the left upper extremity particularly proximally but there may be some slight weakness in the left hand. Left leg strength is essentially 5/5 diffusely well the right leg seemed 4/5 diffusely The limbs have good tone without rigidity or spasticity. There is no atrophy noted in the muscles. Muscle bulk is normal, there is no tenderness to palpation, no myotonia to percussion, and no fasciculations seen. Sensory examination is intact to touch and pin throughout all 4 limbs diffusely. Reflexes are 1/4 in the biceps, triceps, and brachioradialis tendons bilaterally. Quadriceps and Achilles tendon reflexes are absent bilaterally. There is no clonus bilaterally. Toes are downgoing with plantar stimulation on the left and equivocal to upgoing on the right. Peripheral pulses are present and of normal quality distally in all 4 limbs. There is no peripheral edema noted in the limbs. Results & Data ([facility]) Vital Signs (Past 12 Hours) Vital Signs Temp Pulse Pulse Resp BP BP Pulse Ox 12/06/19 07:42 92 H 12/06/19 04:18 36.7 C 91 H 18 121/64 92 12/06/19 03:12 89 16 98 07/11/20 01:00 108 H 12/05/19 23:55 99 H 18 93 12/05/19 23:27 37.4 C 99 H 18 158/74 H 95 12/05/19 20:55 37.2 C 104 H 20 175/98 H 93 12/05/19 20:25 100 H 16 145/74 H 99 PG Care Time/CCT Total # of Minutes Spent Total Time Spent with Patient: Total time spent is greater than 50% in coordination of care (as documented) at patient's floor/unit and/or counseling patient: Coding Level of Care Code 89790 Initial Inpt Care Lvl 3 Diagnoses Acute CVA (cerebrovascular accident) I63.9 Aphasia R47.01 Acute right hemiparesis G81.91 Aneurysm, cerebral, nonruptured I67.1 Diabetes mellitus type 2, uncontrolled E11.65 Coma presence: without coma Hypertension I10 Hypertension type: essential hypertension Hyperlipidemia E78.2 Hyperlipidemia type: mixed hyperlipidemia Lumbar stenosis with neurogenic claudication M48.062 Carotid stenosis, bilateral I65.23 CLL (chronic lymphocytic leukemia) C91.90 Sleep apnea G47.30 Sleep apnea type: unspecified type Time Spent (min) 70 (1) Diabetes mellitus type 2, uncontrolled Coma presence: without coma (2) Hypertension Hypertension type: essential hypertension Qualified Code(s): I10 - Essential (primary) hypertension (3) Hyperlipidemia Hyperlipidemia type: mixed hyperlipidemia Qualified Code(s): E78.2 - Mixed hy perlipidemia (4) Sleep apnea Sleep apnea type: unspecified type Qualified Code(s): G47.30 - Sleep apnea, unspecified
[2019-12-06 08:49] LABS: Basophils # (auto) 0.02 K/uL (0-0.2); Basophils % (auto) 0.1 %; Eosinophils # (auto) 0.17 K/uL (0-0.5); Eosinophils % (auto) 1.2 %; Immature Granulocytes # (auto) 0.03 K/uL (0.00-0.02); Immature Granulocytes % (auto) 0.2 %; Lymphocytes # (auto) 5.87 K/uL (1.2-3.4); Monocytes # (auto) 0.85 K/uL (0.11-0.59); Monocytes % (auto) 6.1 %; Neutrophils # (auto) 7.04 K/uL (1.4-6.5); Neutrophils % (auto) 50.4 %
[2019-12-06 09:04] LABS: Creatinine Clr Calc Pharmacy 35.2 ml/min; Est GFR (African American) 38.9; Est GFR (Non-African American) 33.6; Potassium 3.8 mmol/L (3.5-5.1)
[2019-12-06] MEDS ORDERED: LORazepam 1 MG/2 ML VIAL IV ONE (10:30)
--- NOTE | 2019-12-06 11:38 | Hospitalist Progress Note ---
Date of Service December 06, 2019 Assessment & Plan (1) TIA (transient ischemic attack): 79 yo F with hx uncontrolled DM2, HTN, smoking hx, stable intracranial aneurysms who presented to the ED from home for acute aphasia and concern for TIA/Stroke. 1) TIA - Head MRA negative for masses. 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 No vessel occlusion or high grade stenosis. - Brain MRI notes age-related involutional change noting advanced confluent subcortical and periventricular microangiopathic disease, Chronic lacunar infarcts identified in the thalami. - Neck CTA: 1. Bilateral 50% diameter narrowing of the common carotid arteries 2. Atheromatous changes involving both internal carotid arteries without evidence of hemodynamically significant stenosis. 3. 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 Occlusion of the right vertebral artery with multifocal areas of reconstitution 5. Multifocal left vertebral artery stenoses not exceeding 50%. Postprocedural changes involving the distal left vertebral artery. - Head CT: radiodense material in distal vertebral artery possibly embolic material from previous L PICA coiling repair in 2016. No acute intracranial findings. - High risk for microangiopathic disease (HTN, uncontrolled DM2, smoking) - Last HgbA1c on 11/24/19 elevated at 12.0 - will not repeat -Last Lipid panel on 11/24/19 - Cholesterol elevated at 261 ABH=047 HDL=58 VLDL=42 NC=303 - Cardiac ECHO shows EF >70%, Grade I Diastolic Dysfunction, no PFO or right to left shunt, mild aortic valve sclerosis - left atrium mildly dilated. 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, however none noted on echo report - Neuro Consult: - MAP of 100 (currently 78 with BP 117/58) - improve glucose control - maintain standard statin dosing - Plavix 75 mg in addition to 81 mg ASA - PT, OT, Speech consults 2) Carotid artery dissection - short segment dissection of proximal R internal carotid artery - medically managing with plavix, BP control 3) HTN - lisinopril 20 mg held in setting of permissive HTN - BP returned to normal without BP medication 4) HLD - crestor 10 mg increased to 20 mg 5) Anxiety - home medications venlafaxine 225 mg po daily, hydroxyzine continued Dispo: home pending PT/OT/Speech Eval tomorrow DVT ppx: plavix, asa FEN/GI: NPO except meds with sips Code Status: Full Code (2) Carotid artery dissection: (3) Aphasia: (4) Anxiety: (5) Depression: (6) Hypertension: (7) Sleep apnea: (8) CLL (chronic lymphocytic leukemia): (9) Osteopenia: (10) Diabetes mellitus type 2, uncontrolled: (11) Chronic kidney disease, stage 3: (12) Aneurysm, cerebral, nonruptured: Admission and Anticipated Discharge Date Admission Date: December 05, 2019 Anticipated date of discharge: 12/06/19 Supervising Physician Co-Signing Physician Notes I personally examined the patient and verified all rios points of history and exam, discussed case, and agree with decision making with Dr Leyva. quite sleepy when i see her. updated on MRI. d/w dr alexander, input appreciated. vitals noted nad but quite sleepy, no notable focal neuro deficits but full assessment difficult due to sleepiness. breathing unlabored no accessory muscles. focal neuro deficits - pleasantly surprising that MRI does not show stroke - ?TIA vs RIND. definitely desperately needs secondary risk reduction. somnolence/PA - appears to have had fairly severe PA corrected w bipap but appears on notes that she was noncompliant - check AM gas. DM - uncontrolled. will need extensively educated on critical importance of control of this in management of her vascular disease. DVT proph - lovenox. otherwise as above Subjective 79 yo F admitted for L sided hand weakness, aphasia and memory loss with concern for TIA/Stroke. This morning she is very tired, denies pain. She does not remember being brought in to the hospital, being brought up to the floor. She does remember talking to Dr. Alexander this morning but not what the content of [facility] conversation was. Review of Systems Constitutional: no fever, no chills, no body aches and no fatigue Respiratory: no cough and no dyspnea Cardiovascular: no chest pain, no dyspnea and no edema Gastrointestinal: no abdominal pain, no nausea, no vomiting, no constipation and no diarrhea/loose stools Genitourinary: no dysuria Neurologic: + localized weakness, + tingling and + memory loss; no numbness and no radiating pain Physical Exam 2 Constitutional: + obese, + altered mental status and cooperative; no acute distress and not ill appearing Neck: normal visual inspection, + short neck and + facial hair Respiratory: normal respiratory effort and able to speak in complete sentences; no respiratory distress, no labored breathing, no retractions, no cough and no audible wheezes Auscultation: lungs clear to auscultation bi laterally; no crackles, no rales, no rhonchi and no wheezes Cardiovascular: Rate/Rhythm: regular rate and regular rhythm Heart Sounds: normal S1 and normal S2; no gallop, no murmur and no cardiac rub Vessels: posterior tibial pulses present Extremities: no pedal edema and no edema PACs noted, inconsistent murmur noted on exam at upper sternal border Gastrointestinal (Abdomen): Inspection/Auscultation: abdomen normal to inspection and normal bowel sounds; abdomen not distended Percussion/Palpation: abdomen soft; abdomen nontender, no guarding, abdomen not rigid and no abdominal mass Neurologic: left sided weakness with hand double bottom driver, flexion and extension of arms equal bilaterally, no facial droop, plantar and dorsiflexion of feet bilaterally 5/5 Results & Data Results & Data ([facility]) Vital Signs (Past 12 Hours) Vital Signs Temp Pulse Pulse Resp BP Pulse Ox 12/06/19 08:30 36.5 C 92 H 18 117/58 L 93 12/06/19 07:42 92 H 12/06/19 04:18 36.7 C 91 H 18 121/64 92 12/06/19 03:12 89 16 98 12/06/19 01:00 108 H 12/05/19 23:55 99 H 18 93 Laboratory Results WBC 13.98 K/uL (4.8-10.8) H 12/06/19 08:18 RBC 5.54 M/uL (4.2-5.4) H 12/06/19 08:18 Hgb 17.3 g/dL (12.0-16.0) H 12/06/19 08:18 Hct 50.3 % (37-47) H 12/06/19 08:18 MCV 90.8 fL (80-100) 12/06/19 08:18 MCH 31.2 pg (25-34) 12/06/19 08:18 MCHC 34.4 g/dL (32-36) 12/06/19 08:18 RDW Std Deviation 48.4 fL (36.4-46.3) H 12/06/19 08:18 RDW Coeff of [place] 14.5 % (11.5-14.5) 12/06/19 08:18 Plt Count 262 K/uL (130-400) 12/06/19 08:18 MPV 12.0 fL (7.4-10.4) H 12/06/19 08:18 Immature Gran % (Auto) 0.2 % 12/06/19 08:18 Neut % (Auto) 50.4 % 12/06/19 08:18 Lymph % (Auto) 42.0 % 12/06/19 08:18 [place] % (Auto) 6.1 % 12/06/19 08:18 Eos % (Auto) 1.2 % 12/06/19 08:18 Baso % (Auto) 0.1 % 12/06/19 08:18 Neut # (Auto) 7.04 K/uL (1.4-6.5) H 12/06/19 08:18 Lymph # (Auto) 5.87 K/uL (1.2-3.4) H 12/06/19 08:18 [place] # (Auto) 0.85 K/uL (0.11-0.59) H 12/06/19 08:18 Eos # (Auto) 0.17 K/uL (0-0.5) 12/06/19 08:18 Baso # (Auto) 0.02 K/uL (0-0.2) 12/06/19 08:18 Immature Gran # (Auto) 0.03 K/uL (0.00-0.02) H 12/06/19 08:18 PT 11.0 Seconds (9.0-12.0) 12/05/19 17:51 INR 1.0 (0.9-1.1) 12/05/19 17:51 APTT 27.1 Seconds (21.0-31.0) 12/05/19 17:51 PTT Ratio 1.0 12/05/19 17:51 Sodium 139 mmol/L (136-145) 12/06/19 08:18 Potassium 3.8 mmol/L (3.5-5.1) 12/06/19 08:18 Chloride 103 mmol/L (98-107) 12/06/19 08:18 Carbon Dioxide 29 mmol/L (21-32) 12/06/19 08:18 Anion Gap 7.0 (3-11) 12/06/19 08:18 BUN 16 mg/dl (7-18) 12/06/19 08:18 Creatinine 1.47 mg/dl (0.6-1.2) H 12/06/19 08:18 Est Cr Clr Drug Dosing 35.2 ml/min 12/06/19 08:18 Est GFR ( Amer) 38.9 12/06/19 08:18 Est GFR (Non-Af Amer) 33.6 12/06/19 08:18 BUN/Creatinine Ratio 11.0 (-20) 12/06/19 08:18 Glucose 264 mg/dl (70-99) H 12/06/19 08:18 POC Glucose 248 mg/dl (70-99) H 12/06/19 13:18 Calcium 9.0 mg/dl (8.5-10.1) 12/06/19 08:18 Magnesium 1.8 mg/dl (1.8-2.4) 12/05/19 17:51 Total Bilirubin 1.0 mg/dl (0.2-1) 12/05/19 17:51 AST 22 U/L (15-37) 12/05/19 17:51 ALT 29 U/L (12-78) 12/05/19 17:51 Alkaline Phosphatase 97 U/L (45-117) 12/05/19 17:51 Troponin I < 0.015 ng/ml (0-0.045) 12/05/19 17:51 Total Protein 8.2 gm/dl (6.4-8.2) 12/05/19 17:51 Albumin 4.1 gm/dl (3.4-5.0) 12/05/19 17:51 Globulin 4.1 gm/dl (2.5-4.0) H 12/05/19 17:51 Albumin/Globulin Ratio 1.0 (0.9-2) 12/05/19 17:51 TSH 1.280 uIu/ml (0.300-4.500) 12/05/19 17:51 Specimen Hemolysis 12/05/19 17:51 Blood Type O Positive 12/05/19 17:51 Antibody Screen NEGATIVE 12/05/19 17:51 Resident Activity Tracking Resident Involvement: Resident Care Provided Care Provided: Adult Hospital Medicine (1) Sleep apnea Sleep apnea type: unspecified type Qualified Code(s): G47.30 - Sleep apnea, unspecified (2) Diabetes mellitus type 2, uncontrolled Coma presence: without coma (3) Hypertension Hypertension type: essential hypertension Qualified Code(s): I10 - Essential (primary) hypertension
[2019-12-06] MEDS ORDERED: GADOBUTROL 65ML VIAL IV PRN (13:22)
--- NOTE | 2019-12-06 14:01 | Magnetic Resonance Report ---
MRI OF THE BRAIN COMBO CLINICAL HISTORY: Strokelike symptoms. COMPARISON STUDY: CT of the brain dated 12/05/2019. TECHNIQUE: MRI of the brain was performed utilizing various T1 and T2-weighted sequences in the axial , sagittal, and coronal planes. Contrast-enhanced sequences were acquired following the administratio n of 9.5 cc of Gadavist. FINDINGS: Brain parenchyma: There is age-related involutional change noting advanced confluent subcortical and periventricular microangiopathic disease. There is no hemorrhage or mass effect. There is no restrict ed diffusion to suggest acute ischemia. No enhancing mass lesion is identified on the postcontrast im ages. Chronic lacunar infarcts identified in the thalami. Woods-white matter differentiation is preser sejal. No extra-axial fluid collection is seen. The cerebellar tonsils are normal in configuration. Ventricles, sulci, and cisterns: Prominent secondary to involutional change. Pituitary and sella: Unremarkable. Intracranial vasculature: Normal flow voids are maintained at the skull base. Orbits: The bony orbits are grossly intact. Orbital contents are normal in appearance noting bilatera l ocular lens implants. Sinuses and mastoids: Clear. Calvarium: Unremarkable. Cervical cord: Partially visualized cervical spinal cord is normal in morphology and signal intensity . IMPRESSION: Senescent changes as above with no acute intracranial abnormality. ACT 112: Negative or not required by law. Electronically signed by: Elliot Carolina M.D. 12/06/2019 2:00 PM
--- NOTE | 2019-12-06 14:09 | Magnetic Resonance Report ---
MR ANGIOGRAM OF THE BRAIN CLINICAL HISTORY: Strokelike symptoms. COMPARISON STUDY: CT angiogram of the brain dated 12/05/2019. TECHNIQUE: 3-D [id number] MR angiography of the intracranial circulation is performed. 3-D tumble views are created and assessed. IV contrast was not administered for this examination. The examinati on is degraded by motion artifact. FINDINGS: There is a right posterior communicating artery. The internal carotid arteries are widely p atent bilaterally, as are the anterior and middle cerebral arteries. The vertebrobasilar system and p osterior cerebral arteries are patent. Irregularity of the left vertebral artery at the skull base ma y be on a postoperative basis. The left vertebral artery is dominant. There is a 3 mm aneurysm of th e proximal basilar artery seen on image #58. A 3.5 mm aneurysm of the right middle cerebral artery tr ifurcation is seen on axial image #102. No focal/high-grade stenosis is identified throughout the int racranial circulation. No focal vessel cutoff is seen. IMPRESSION: 1. There are 2 small intracranial aneurysms as above. These were better assessed on yesterday's CT an giogram. 2. No focal vessel occlusion or high-grade stenosis is identified throughout the intracranial circula tion. ACT 112: Negative or not required by law. Electronically signed by: Elliot Carolina M.D. 12/06/2019 2:07 PM
--- NOTE | 2019-12-06 19:05 | Billing Data ---
Date of Service December 06, 2019 Coding Level of Care Code 08602 Subseq Hosp Care Lvl 3
[2019-12-07] MEDS: LEVOTHYROXINE SODIUM 75 MCG TABLET PO SCH (06:36)
[2019-12-07 07:25] LABS: Basophils # (auto) 0.02 K/uL (0-0.2); Basophils % (auto) 0.1 %; Eosinophils # (auto) 0.36 K/uL (0-0.5); Eosinophils % (auto) 2.5 %; Hematocrit (blood only) 51.3 % (37-47); Hemoglobin 17.3 g/dL (12.0-16.0); Immature Granulocytes # (auto) 0.05 K/uL (0.00-0.02); Immature Granulocytes % (auto) 0.3 %; Lymphocytes % (auto) 31.1 %; Mean Corpuscular Hemoglobin 30.8 pg (25-34); Mean Corpuscular Hgb Conc 33.7 g/dL (32-36); Mean Corpuscular Volume 91.4 fL (80-100); Monocytes # (auto) 0.83 K/uL (0.11-0.59); Monocytes % (auto) 5.7 %; Neutrophils # (auto) 8.71 K/uL (1.4-6.5); Neutrophils % (auto) 60.3 %; Platelet Count 249 K/uL (130-400); RDW Coefficient of Variation 14.8 % (11.5-14.5); RDW Standard Deviation 49.3 fL (36.4-46.3); Red Blood Count 5.61 M/uL (4.2-5.4); White Blood Count 14.47 K/uL (4.8-10.8)
[2019-12-07 07:27] LABS: Base Excess ABG 2.2 mEq/L (-9-1.8); HCO3 ABG 27 mmol/L (19-24); Oxygen Saturation ABG 93.4 % (90-95); PCO2 ABG 41 mmHg (35-46); PO2 ABG 63 mmHg (80-95); pH ABG 7.43 (7.35-7.45)
[2019-12-07 07:30] LABS: Allen Test POS (Pos)
[2019-12-07 07:58] LABS: BUN Creatinine Ratio 15.7 (10-20); Calcium 8.8 mg/dl (8.5-10.1); Creatinine Clr Calc Pharmacy 41.7 ml/min; Est GFR (African American) 47.8; Est GFR (Non-African American) 41.3
[2019-12-07 07:59] LABS: Appearance Urine Clear (Clear); Bacteria Urine Automated 1+ (Negative); Bilirubin Urine Negative (Negative); Blood Urine Negative (Negative); Color Urine Dark Yellow; Epithelial Cell Urine Auto >30 /lpf (0-5); Glucose Urine UA Negative (Negative); Ketones Urine Trace (Negative); Leukocyte Esterase Urine 1+ (Negative); Nitrite Urine Negative (Negative); Protein Urine Negative (Negative); RBC Urine Automated 0-4 /hpf (0-4); Specific Gravity Urine 1.038 (1.000-1.030); Urobilinogen Urine Negative (Negative)
[2019-12-07] MEDS: INSULIN GLARGINE SOLOSTAR 100 UNITS/ML 3 ML PEN SC SCH ×2 (08:20→20:47)
[2019-12-07] MEDS: INSULIN ASPART 100 UNITS/ML 3 ML PEN SC SCH ×4 (08:20→20:46)
[2019-12-07] MEDS: CLOPIDOGREL BISULFATE 75 MG TAB PO SCH (08:22)
[2019-12-07] MEDS: CETIRIZINE HCL 10 MG TABLET PO SCH (08:23)
[2019-12-07] MEDS: VENLAFAXINE HCL XR 75 MG CAPXR PO SCH (08:23)
[2019-12-07] MEDS: GABAPENTIN 600 MG TAB PO SCH ×2 (08:23→20:49)
[2019-12-07] MEDS: PANTOprazole 40 MG TAB PO SCH (08:23)
[2019-12-07] MEDS: ROSUVASTATIN CALCIUM 20 MG TAB PO SCH (08:23)
[2019-12-07] MEDS: ENOXAPARIN INJ 40 MG/0.4 ML SYR SQ SCH (08:23)
[2019-12-07] MEDS: ASPIRIN 81 MG ECTAB PO SCH (08:23)
--- NOTE | 2019-12-07 08:31 | Hospitalist Progress Note ---
Date of Service December 07, 2019 Assessment & Plan (1) TIA (transient ischemic attack): 79 yo F with hx uncontrolled DM2, HTN, smoking hx, stable intracranial aneurysms who presented to the ED from home for acute aphasia and concern for TIA/Stroke. 1) TIA - Head MRA negative for masses. 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 No vessel occlusion or high grade stenosis. - Brain MRI notes age-related involutional change noting advanced confluent subcortical and periventricular microangiopathic disease, Chronic lacunar infarcts identified in the thalami. - Neck CTA: 1. Bilateral 50% diameter narrowing of the common carotid arteries 2. Atheromatous changes involving both internal carotid arteries without evidence of hemodynamically significant stenosis. 3. 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 Occlusion of the right vertebral artery with multifocal areas of reconstitution 5. Multifocal left vertebral artery stenoses not exceeding 50%. Postprocedural changes involving the distal left vertebral artery. - Head CT: radiodense material in distal vertebral artery possibly embolic material from previous L PICA coiling repair in 2016. No acute intracranial findings. - High risk for microangiopathic disease (HTN, uncontrolled DM2, smoking) - Last HgbA1c on 11/24/19 elevated at 12.0 - will not repeat -Last Lipid panel on 11/24/19 - Cholesterol elevated at 261 HEF=689 HDL=58 VLDL=42 IE=074 - increase statin to 40 mg rosuvastatin - Cardiac ECHO shows EF >70%, Grade I Diastolic Dysfunction, no PFO or right to left shunt, mild aortic valve sclerosis - left atrium mildly dilated. 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, however none noted on echo report - Neuro Consult: - MAP of 100 (currently 78 with BP 117/58) - improve glucose control - Plavix 75 mg in addition to 81 mg ASA - PT, OT, Speech consults: continue PT, OT, Speech therapy going forward 2) Carotid artery dissection - short segment dissection of proximal R internal carotid artery - medically managing with plavix, BP control 3) HTN - lisinopril 20 mg held in setting of permissive HTN - BP returned to normal without BP medication 4) HLD - crestor 20 mg increased to 40 mg 5) Anxiety - home medications venlafaxine 225 mg po daily, hydroxyzine continued Dispo: Acute Rehab pending placement DVT ppx: plavix, asa FEN/GI: Heart Healthy Code Status: Full Code (2) Carotid artery dissection: (3) Aphasia: (4) Anxiety: (5) Depression: (6) Hypertension: (7) Sleep apnea: (8) CLL (chronic lymphocytic leukemia): (9) Osteopenia: (10) Diabetes mellitus type 2, uncontrolled: (11) Chronic kidney disease, stage 3: (12) Aneurysm, cerebral, nonruptured: Admission and Anticipated Discharge Date Admission Date: December 05, 2019 Anticipated date of discharge: 12/06/19 Supervising Physician Co-Signing Physician Notes I personally examined the patient and verified all rios points of history and exam, discussed case, and agree with decision making with Dr Leyva. still difficulty with speaking. d/w neuro - they see small stroke on MRI on personal review. extensive discussions on secondary risk reduction - especially with DM. see instructions in discharge section to see bulk of discussions. ~45mins in the room time in ~215p time out ~3p vitals noted nad heent nc at mmm breathing unlabored ongoing difficulty w word finding. breathing unlabored no accessory muscles good effort skin no rashes no pallor or icterus CVA - ongoing neuro deficits, and neuro seeing area of corresponding CVA on MRI. dual antiplatelets for now (although not indefinite), secondary risk reduction (escalate statin - w LDL 160, and having been on rosuvastatin already - maximizing statin will help w reduction in cholesterol and with plaque stabilization, but does not appear that it will even come close to dropping lipids to a low enough level to increase concern for ICH) uncontrolled DM2 - ~45mins in the room as above outlined >50% educating on DM, then spent additional ~30mins typing instructions for her to go home with. titrate insulins. for now suspect that change from 70/30 to basal/bolus would be overwhelming (she didn't do well with this per endocrine notes in ~2017, and right now w rehab and critical need for lifestyle change, i suspect that just titrating 70/30 to a better degree of control, and then later revisiting basal bolus, would be a reasonable stepwise approach. could prbably realistically get her to A1c of 8ish before running into much 70/30 specific problems anyway) anticipate rehab stay once set up, stable to go once approval/bed available. otherwise as above Subjective Lethargic. Having trouble with word finding. Discussed wearing CPAP at night and benefits of having more energy and sleeping better. Still complaining of left hand weakness compared to right. Review of Systems Constitutional: + fatigue; no fever, no chills and no body aches Respiratory: no cough and no dyspnea Cardiovascular: no chest pain, no dyspnea and no edema Gastrointestinal: no abdominal pain, no nausea, no vomiting, no constipation and no diarrhea/loose stools Genitourinary: no dysuria Neurologic: + localized weakness Physical Exam Constitutional: + obese and cooperative; no acute distress and not ill appearing Neck: normal visual inspection Respiratory: normal respiratory effort and able to speak in complete sentences; no respiratory distress, no labored breathing, no retractions, no cough and no audible wheezes Auscultation: lungs clear to auscultation bilaterally; no crackles, no rales, no rhonchi and no wheezes Cardiovascular: Rate/Rhythm: regular rate and regular rhythm Heart Sounds: normal S1 and normal S2; no gallop, no murmur and no cardiac rub Vessels: posterior tibial pulses present Extremities: no pedal edema and no edema Gastrointestinal (Abdomen): Inspection/Auscultation: abdomen normal to inspection and normal bowel sounds; abdomen not distended Percussion/Palpation: abdomen soft; abdomen nontender, no guarding, abdomen not rigid and no abdominal mass Results & Data Results & Data ([facility]) Vital Signs (Past 12 Hours) Vital Signs Temp Pulse Pulse Resp BP Pulse Ox 12/07/19 07:17 36.8 C 91 H 20 117/81 90 12/07/19 07:16 90 12/07/19 03:57 86 16 91 12/07/19 03:48 36.5 C 87 18 148/84 H 94 12/06/19 23:48 36.5 C 85 18 148/79 H 94 12/06/19 22:20 87 16 93 Laboratory Results WBC 14.47 K/uL (4.8-10.8) H 12/07/19 07:04 RBC 5.61 M/uL (4.2-5.4) H 12/07/19 07:04 Hgb 17.3 g/dL (12.0-16.0) H 12/07/19 07:04 Hct 51.3 % (37-47) H 12/07/19 07:04 MCV 91.4 fL (80-100) 12/07/19 07:04 MCH 30.8 pg (25-34) 12/07/19 07:04 MCHC 33.7 g/dL (32-36) 12/07/19 07:04 RDW Std Deviation 49.3 fL (36.4-46.3) H 12/07/19 07:04 RDW Coeff of [place] 14.8 % (11.5-14.5) H 12/07/19 07:04 Plt Count 249 K/uL (130-400) 12/07/19 07:04 MPV 12.0 fL (7.4-10.4) H 12/07/19 07:04 Immature Gran % (Auto) 0.3 % 12/07/19 07:04 Neut % (Auto) 60.3 % 12/07/19 07:04 Lymph % (Auto) 31.1 % 12/07/19 07:04 [place] % (Auto) 5.7 % 12/07/19 07:04 Eos % (Auto) 2.5 % 12/07/19 07:04 Baso % (Auto) 0.1 % 12/07/19 07:04 Neut # (Auto) 8.71 K/uL (1.4-6.5) H 12/07/19 07:04 Lymph # (Auto) 4.50 K/uL (1.2-3.4) H 12/07/19 07:04 [place] # (Auto) 0.83 K/uL (0.11-0.59) H 12/07/19 07:04 Eos # (Auto) 0.36 K/uL (0-0.5) 12/07/19 07:04 Baso # (Auto) 0.02 K/uL (0-0.2) 12/07/19 07:04 Immature Gran # (Auto) 0.05 K/uL (0.00-0.02) H 12/07/19 07:04 PT 11.0 Seconds (9.0-12.0) 12/05/19 17:51 INR 1.0 (0.9-1.1) 12/05/19 17:51 APTT 27.1 Seconds (21.0-31.0) 12/05/19 17:51 PTT Ratio 1.0 12/05/19 17:51 ABG pH 7.43 (7.35-7.45) 12/07/19 07:15 ABG pCO2 41 mmHg (35-46) 12/07/19 07:15 ABG pO2 63 mmHg (80-95) L 12/07/19 07:15 ABG HCO3 27 mmol/L (19-24) H 12/07/19 07:15 ABG O2 Saturation 93.4 % (90-95) 12/07/19 07:15 ABG Base Excess 2.2 mEq/L (-9-1.8) H 12/07/19 07:15 Geovanny Test POS (Pos) 12/07/19 07:15 Barometric Pressure 726.8 mm/Hg 12/07/19 07:15 Oxygen Given ROOM AIR 12/07/19 07:15 Sodium 139 mmol/L (136-145) 12/07/19 07:04 Potassium 4.0 mmol/L (3.5-5.1) 12/07/19 07:04 Chloride 107 mmol/L (98-107) 12/07/19 07:04 Carbon Dioxide 23 mmol/L (21-32) 12/07/19 07:04 Anion Gap 9.0 (3-11) 12/07/19 07:04 BUN 19 mg/dl (7-18) H 12/07/19 07:04 Creatinine 1.24 mg/dl (0.6-1.2) H 12/07/19 07:04 Est Cr Clr Drug Dosing 41.7 ml/min 12/07/19 07:04 Est GFR ( Amer) 47.8 12/07/19 07:04 Est GFR (Non-Af Amer) 41.3 12/07/19 07:04 BUN/Creatinine Ratio 15.7 (10-20) 12/07/19 07:04 Glucose 225 mg/dl (70-99) H 12/07/19 07:04 POC Glucose 284 mg/dl (70-99) H 12/07/19 11:35 Calcium 8.8 mg/dl (8.5-10.1) 12/07/19 07:04 Magnesium 1.8 mg/dl (1.8-2.4) 12/05/19 17:51 Total Bilirubin 1.0 mg/dl (0.2-1) 12/05/19 17:51 AST 22 U/L (15-37) 12/05/19 17:51 ALT 29 U/L (12-78) 12/05/19 17:51 Alkaline Phosphatase 97 U/L (45-117) 12/05/19 17:51 Troponin I < 0.015 ng/ml (0-0.045) 12/05/19 17:51 Total Protein 8.2 gm/dl (6.4-8.2) 12/05/19 17:51 Albumin 4.1 gm/dl (3.4-5.0) 12/05/19 17:51 Globulin 4.1 gm/dl (2.5-4.0) H 12/05/19 17:51 Albumin/Globulin Ratio 1.0 (0.9-2) 12/05/19 17:51 TSH 1.280 uIu/ml (0.300-4.500) 12/05/19 17:51 Specimen Hemolysis 12/07/19 07:04 Urine Color Dark Yellow 12/07/19 06:45 Urine Appearance Clear (Clear) 12/07/19 06:45 Urine pH 5.0 (4.5-7.5) 12/07/19 06:45 Ur Specific [place] 1.038 (1.000-1.030) H 12/07/19 06:45 Urine Protein Negative (Negative) 12/07/19 06:45 Urine Glucose (UA) Negative (Negative) 12/07/19 06:45 Urine Ketones Trace (Negative) H 12/07/19 06:45 Urine Blood Negative (Negative) 12/07/19 06:45 Urine Nitrite Negative (Negative) 12/07/19 06:45 Urine Bilirubin Negative (Negative) 12/07/19 06:45 Urine Urobilinogen Negative (Negative) 12/07/19 06:45 Ur Leukocyte Esterase 1+ (Negative) H 12/07/19 06:45 Urine WBC (Auto) 10-30 /hpf (0-5) H 12/07/19 06:45 Urine RBC (Auto) 0-4 /hpf (0-4) 12/07/19 06:45 U Hyaline Cast (Auto) 1-5 /lpf (0-5) 12/07/19 06:45 U Epithel Cells (Auto) >30 /lpf (0-5) H 12/07/19 06:45 Urine Bacteria (Auto) 1+ (Negative) H 12/07/19 06:45 Blood Type O Positive 12/05/19 17:51 Antibody Screen NEGATIVE 12/05/19 17:51 Resident Activity Tracking Resident Involvement: Resident Care Provided Care Provided: Adult Hospital Medicine (1) Sleep apnea Sleep apnea type: unspecified type Qualified Code(s): G47.30 - Sleep apnea, unspecified (2) Diabetes mellitus type 2, uncontrolled Coma presence: without coma (3) Hypertension Hypertension type: essential hypertension Qualified Code(s): I10 - Essential (primary) hypertension
--- NOTE | 2019-12-07 19:24 | Billing Data ---
Date of Service December 07, 2019 Coding Level of Care Code 83769 Subseq Hosp Care Lvl 3
--- NOTE | 2019-12-07 19:25 | Billing Data ---
Date of Service December 07, 2019 Coding Level of Care Code 22361 Prolonged Care (int'l)
[2019-12-08] MEDS: LEVOTHYROXINE SODIUM 75 MCG TABLET PO SCH (06:07)
[2019-12-08 06:53] LABS: BUN Creatinine Ratio 15.9 (10-20); Calcium 8.6 mg/dl (8.5-10.1); Creatinine Clr Calc Pharmacy 34.9 ml/min; Est GFR (African American) 38.6; Est GFR (Non-African American) 33.3; Potassium 3.4 mmol/L (3.5-5.1)
[2019-12-08 06:58] LABS: Basophils # (auto) 0.02 K/uL (0-0.2); Basophils % (auto) 0.2 %; Hematocrit (blood only) 49.7 % (37-47); Hemoglobin 16.4 g/dL (12.0-16.0); Immature Granulocytes # (auto) 0.03 K/uL (0.00-0.02); Immature Granulocytes % (auto) 0.3 %; Lymphocytes # (auto) 3.07 K/uL (1.2-3.4); Lymphocytes % (auto) 30.3 %; Mean Platelet Volume 12.6 fL (7.4-10.4); Monocytes # (auto) 0.84 K/uL (0.11-0.59); Monocytes % (auto) 8.3 %; Neutrophils # (auto) 5.88 K/uL (1.4-6.5); Neutrophils % (auto) 57.9 %; Platelet Count 239 K/uL (130-400); RDW Coefficient of Variation 14.7 % (11.5-14.5); Red Blood Count 5.29 M/uL (4.2-5.4); White Blood Count 10.14 K/uL (4.8-10.8)
[2019-12-08] MEDS: VENLAFAXINE HCL XR 75 MG CAPXR PO SCH (07:43)
[2019-12-08] MEDS: CETIRIZINE HCL 10 MG TABLET PO SCH (07:43)
[2019-12-08] MEDS: GABAPENTIN 600 MG TAB PO SCH ×2 (07:43→21:43)
[2019-12-08] MEDS: PANTOprazole 40 MG TAB PO SCH (07:46)
[2019-12-08] MEDS: CLOPIDOGREL BISULFATE 75 MG TAB PO SCH (07:46)
[2019-12-08] MEDS: ASPIRIN 81 MG ECTAB PO SCH (07:46)
[2019-12-08] MEDS: ENOXAPARIN INJ 40 MG/0.4 ML SYR SQ SCH (07:46)
[2019-12-08] MEDS: ACETAMINOPHEN 325 MG TAB PO PRN (07:50)
[2019-12-08] MEDS: INSULIN ASPART 100 UNITS/ML 3 ML PEN SC SCH ×4 (08:21→21:42)
[2019-12-08] MEDS: ROSUVASTATIN CALCIUM 20 MG TAB PO SCH (08:21)
[2019-12-08] MEDS: INSULIN GLARGINE SOLOSTAR 100 UNITS/ML 3 ML PEN SC SCH ×2 (08:22→21:43)
--- NOTE | 2019-12-08 13:52 | Hospitalist Progress Note ---
Date of Service December 08, 2019 Assessment & Plan (1) TIA (transient ischemic attack): 79 yo F with hx uncontrolled DM2, HTN, smoking hx, stable intracranial aneurysms who presented to the ED from home for acute aphasia and concern for TIA/Stroke. Acute CVA: - Head MRA negative for masses. 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 No vessel occlusion or high grade stenosis. - Brain MRI notes age-related involutional change noting advanced confluent subcortical and periventricular microangiopathic disease, Chronic lacunar infarcts identified in the thalami. - Neck CTA: 1. Bilateral 50% diameter narrowing of the common carotid arteries. 2. Atheromatous changes involving both internal carotid arteries without evidence of hemodynamically significant stenosis. 3. Short segment dissection of the proximal right internal carotid artery. 4. Occlusion of the right vertebral artery with multifocal areas of reconstitution. 5. Multifocal left vertebral artery stenoses not exceeding 50%. Postprocedural changes involving the distal left vertebral artery. - Head CT: radiodense material in distal vertebral artery possibly embolic material from previous L PICA coiling repair in 2016. No acute intracranial findings. - High risk for microangiopathic disease (HTN, uncontrolled DM2, smoking). - Last HgbA1c on 11/24/19 elevated at 12.0. - Last Lipid panel on 11/24/19 - Cholesterol elevated at 261 RGH=040 HDL=58 VLDL=42 JJ=557. - Increased statin to 40 mg rosuvastatin this admission. - Cardiac ECHO shows EF >70%, Grade I Diastolic Dysfunction, no PFO or right to left shunt, mild aortic valve sclerosis. - Left atrium mildly dilated. 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 - Plavix 75 mg added to 81 mg ASA. - PT, OT, Speech consults: continue PT, OT, Speech therapy going forward. - For eventual placement to acute rehab. DM2: - Hgb A1c 12.0 on admission. - Patient states that "her sugars are always in the 300s and potatoes are her weakness". - Discussed dietary changes at length. Suspect her microvessel ischemic changes are due to prolonged HTN, HLD, uncontrolled DM2. - Lantus 16u BID, SSI with goal BSG 100-140, correction factor 25, 1 unit for every 8 units of carbs. HTN: - Lisinopril 20 mg held in setting of permissive HTN. - BP normotensive without HTN medications. - Will add lisinopril given DM2 during this admission assuming BP not low. HLD: - Crestor 20 mg increased to 40 mg. Carotid artery dissection: - Short segment dissection of proximal R internal carotid artery. - Medically managing with Plavix, BP control. Anxiety - Home medications venlafaxine 225 mg po daily, hydroxyzine continued. Dispo: Acute Rehab pending placement DVT ppx: Heparin 5000u SQ q12 FEN/GI: Heart Healthy, DM2 Code Status: Full Code (2) Carotid artery dissection: (3) Aphasia: (4) Anxiety: (5) Depression: (6) Hypertension: (7) Sleep apnea: (8) CLL (chronic lymphocytic leukemia): (9) Osteopenia: (10) Diabetes mellitus type 2, uncontrolled: (11) Chronic kidney disease, stage 3: (12) Aneurysm, cerebral, nonruptured: Admission and Anticipated Discharge Date Admission Date: December 05, 2019 Anticipated date of discharge: 12/06/19 Supervising Physician Co-Signing Physician Notes I also saw the patient with the resident physician and confirmed rios portions of the history and physical examination. I agree with the impression and plan as noted above. Patient had a acute left hemispheric stroke 12/04 with subsequent expressive aphasia and right hemiparesis. She continues to have some word finding issues today, but when reviewing the notes from the weekend, she seems to be slightly improved today. CVA -continue aspirin and added Plavix this admission. Crestor has been increased at this point to 40 mg daily. Will need to review with patient her compliance on her previous dose; there would also be the consideration for 20 mg and a repeat lipid profile in about 6 weeks; given her aneurysms there is a theoretical concern for increased risk of ICH with overaggressive reduction in cholesterol. Diabetes, uncontrolled-education; changes as noted above Subjective Patient without acute events overnight. Reports continued weakness of her left arm and difficulty "finding the words". No chest pain or palpitations, no SOB, no nausea or vomiting, no constipation or diarrhea. No difficulty swallowing. Review of Systems Constitutional: no fever and no chills Respiratory: no cough and no dyspnea Cardiovascular: no chest pain, no dyspnea and no edema Gastrointestinal: no abdominal pain, no nausea, no vomiting, no constipation and no diarrhea/loose stools Genitourinary: no dysuria Neurologic: + localized weakness and + abnormal speech Physical Exam Constitutional: WD/WN, vitals as above cooperative Neck: normal visual inspection Respiratory: normal respiratory effort, lungs clear to auscultation able to speak in complete sentences; no audible wheezes Cardiovascular: RRR, no murmur, no edema Gastrointestinal (Abdomen): normal bowel sounds, soft, nontender, no hepatosplenomegaly Musculoskeletal: no cyanosis or clubbing LUE 4/5 strength, RUE 5/5 strength bilateral LE 5/5 strength Skin: no rashes, warm and dry Neurologic: mild left sided facial droop Some stuttering of words sensation intact bilateral UE, LE, face Results & Data Results & [facility] ([facility]) Vital Signs (Past 12 Hours) Vital Signs Temp Pulse Resp BP Pulse Ox 12/08/19 11:43 36.6 C 86 18 139/82 90 12/08/19 07:17 36.5 C 78 18 151/81 H 92 Resident Activity Tracking Resident Involvement: Resident Care Provided Care Provided: Adult Hospital Medicine (1) Sleep apnea Sleep apnea type: unspecified type Qualified Code(s): G47.30 - Sleep apnea, unspecified (2) Diabetes mellitus type 2, uncontrolled Coma presence: without coma (3) Hypertension Hypertension type: essential hypertension Qualified Code(s): I10 - Essential (primary) hypertension
[2019-12-08] MEDS ORDERED: POTASSIUM CHLORIDE 20 MEQ TABCR PO STA (15:50)
[2019-12-08] MEDS ORDERED: HEPARIN SOD 5,000 UNIT/0.5 ML VIAL SQ SCH (21:00)
[2019-12-09] MEDS: LEVOTHYROXINE SODIUM 75 MCG TABLET PO SCH (06:15)
[2019-12-09] MEDS: ROSUVASTATIN CALCIUM 20 MG TAB PO SCH (08:07)
[2019-12-09] MEDS: VENLAFAXINE HCL XR 75 MG CAPXR PO SCH (08:07)
[2019-12-09] MEDS: PANTOprazole 40 MG TAB PO SCH (08:07)
[2019-12-09] MEDS: ASPIRIN 81 MG ECTAB PO SCH (08:08)
[2019-12-09] MEDS: CLOPIDOGREL BISULFATE 75 MG TAB PO SCH (08:08)
[2019-12-09] MEDS: CETIRIZINE HCL 10 MG TABLET PO SCH (08:09)
[2019-12-09] MEDS: ENOXAPARIN INJ 40 MG/0.4 ML SYR SQ SCH (08:09)
[2019-12-09] MEDS: GABAPENTIN 600 MG TAB PO SCH ×2 (08:09→20:15)
[2019-12-09] MEDS: INSULIN GLARGINE SOLOSTAR 100 UNITS/ML 3 ML PEN SC SCH ×2 (08:13→21:20)
[2019-12-09] MEDS: INSULIN ASPART 100 UNITS/ML 3 ML PEN SC SCH ×5 (08:15→21:20)
[2019-12-09 10:09] LABS: BUN Creatinine Ratio 13.4 (10-20); Calcium 9.4 mg/dl (8.5-10.1); Creatinine Clr Calc Pharmacy 36.4 ml/min; Est GFR (African American) 40.6; Potassium 4.8 mmol/L (3.5-5.1)
[2019-12-09 10:22] LABS: Beta-Hydroxybutyrate 1.4 mg/dl (0.2-2.81)
--- NOTE | 2019-12-09 15:05 | Hospitalist Progress Note ---
Date of Service December 09, 2019 Assessment & Plan (1) TIA (transient ischemic attack): 79 yo F with hx uncontrolled DM2, HTN, smoking hx, stable intracranial aneurysms who presented to the ED from home for acute aphasia and concern for TIA/Stroke. Acute CVA: - Head MRA negative for masses. 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 No vessel occlusion or high grade stenosis. - Brain MRI notes age-related involutional change noting advanced confluent subcortical and periventricular microangiopathic disease, Chronic lacunar infarcts identified in the thalami. - Neck CTA: 1. Bilateral 50% diameter narrowing of the common carotid arteries. 2. Atheromatous changes involving both internal carotid arteries without evidence of hemodynamically significant stenosis. 3. Short segment dissection of the proximal right internal carotid artery. 4. Occlusion of the right vertebral artery with multifocal areas of reconstitution. 5. Multifocal left vertebral artery stenoses not exceeding 50%. Postprocedural changes involving the distal left vertebral artery. - Head CT: radiodense material in distal vertebral artery possibly embolic material from previous L PICA coiling repair in 2016. No acute intracranial findings. - High risk for microangiopathic disease (HTN, uncontrolled DM2, smoking). - Last HgbA1c on 11/24/19 elevated at 12.0. - Last Lipid panel on 11/24/19 - Cholesterol elevated at 261 KUB=140 HDL=58 VLDL=42 XQ=327. - Increased statin to 40 mg rosuvastatin this admission. - Cardiac ECHO shows EF >70%, Grade I Diastolic Dysfunction, no PFO or right to left shunt, mild aortic valve sclerosis. - Left atrium mildly dilated. 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 - Plavix 75 mg added to 81 mg ASA. - PT, OT, Speech consults: continue PT, OT, Speech therapy going forward. - For eventual placement to acute rehab. Acute rehab denied, will perform peer to peer. DM2: - Hgb A1c 12.0 on admission. - Patient states that "her sugars are always in the 300s and potatoes are her weakness". - Discussed dietary changes at length. Suspect her microvessel ischemic changes are due to prolonged HTN, HLD, uncontrolled DM2. - Lantus 16u BID, SSI with goal BSG 100-140, correction factor 20, 1 unit for every 6 units of carbs. HTN: - Lisinopril 20 mg held in setting of permissive HTN. - BP normotensive without HTN medications. - Will restart lisinopril given DM2 diagnosis. HLD: - Crestor 10mg increased to 20mg this admission. - Follow up in 1 month to determine lipid profile on new dosing. Carotid artery dissection: - Short segment dissection of proximal R internal carotid artery. - Medically managing with Plavix, BP control. Anxiety - Home medications venlafaxine 225 mg po daily, hydroxyzine continued. Dispo: Acute Rehab pending placement DVT ppx: Heparin 5000u SQ q12 FEN/GI: Heart Healthy, DM2 Code Status: Full Code (2) Carotid artery dissection: (3) Aphasia: (4) Anxiety: (5) Depression: (6) Hypertension: (7) Sleep apnea: (8) CLL (chronic lymphocytic leukemia): (9) Osteopenia: (10) Diabetes mellitus type 2, uncontrolled: (11) Chronic kidney disease, stage 3: (12) Aneurysm, cerebral, nonruptured: Admission and Anticipated Discharge Date Admission Date: December 05, 2019 Anticipated date of discharge: 12/06/19 Supervising Physician Co-Signing Physician Notes I also saw the patient with the resident physician and confirmed rios portions of the history and physical examination. I agree with the impression and plan as noted above. Patient had a acute left hemispheric stroke 12/04 with subsequent expressive aphasia and right hemiparesis. She continues with some word finding difficulties; she does okay until the conversation speeds up and then she seems to struggle more along with some frustration. She continues to ask improvement with the unilateral weakness as well; hopeful she will will be able to go to rehabilitation (inpatient) to her forward her the best chance at recovery. CVA -continue aspirin and added Plavix this admission. I would recommend Crestor 20 mg daily with a recheck of a lipid profile in 6 to 8 weeks. Concerned with higher dose Crestor would be with the risk of intracranial hemorrhage given her known aneurysms. Diabetes, uncontrolled-education; insulin regimen adjusted given elevated blood sugars today. Subjective Patient without acute events overnight. Reports feels about the same with regard to arm weakness and trouble "finding the words". Sometimes will get stuck on a word but then can work through that word and continue the conversation. No shortness of breath or wheezing, no chest pain, no fevers or chills, no abdominal pain, no nausea or vomiting, no dizziness or headaches. Review of Systems Constitutional: no fever and no chills Respiratory: no cough and no dyspnea Cardiovascular: no chest pain, no dyspnea and no edema Gastrointestinal: no abdominal pain, no nausea, no vomiting, no constipation and no diarrhea/loose stools Genitourinary: no dysuria Neurologic: + localized weakness and + abnormal speech Physical Exam Constitutional: WD/WN, vitals as above cooperative Neck: normal visual inspection Respiratory: normal respiratory effort, lungs clear to auscultation able to speak in complete sentences; no audible wheezes Cardiovascular: RRR, no murmur, no edema Gastrointestinal (Abdomen): normal bowel sounds, soft, nontender, no hepatosplenomegaly Musculoskeletal: no cyanosis or clubbing LUE 4/5 strength, RUE 5/5 strength bilateral LE 5/5 strength Skin: no rashes, warm and dry Neurologic: mild left sided facial droop Some stuttering of words sensation intact bilateral UE, LE, face Results & Data Results & Data ([facility]) Vital Signs (Past 12 Hours) Vital Signs Temp Pulse Pulse Resp BP Pulse Ox 12/09/19 11:50 36.4 C L 78 20 138/82 93 12/09/19 07:37 36.9 C 90 20 140/80 91 12/09/19 07:00 85 Resident Activity Tracking Resident Involvement: Resident Care Provided Care Provided: Adult Hospital Medicine (1) Sleep apnea Sleep apnea type: unspecified type Qualified Code(s): G47.30 - Sleep apnea, unspecified (2) Diabetes mellitus type 2, uncontrolled Coma presence: without coma (3) Hypertension Hypertension type: essential hypertension Qualified Code(s): I10 - Essential (primary) hypertension
[2019-12-10] MEDS: LEVOTHYROXINE SODIUM 75 MCG TABLET PO SCH (05:51)
[2019-12-10] MEDS: PANTOprazole 40 MG TAB PO SCH (07:41)
[2019-12-10] MEDS: CLOPIDOGREL BISULFATE 75 MG TAB PO SCH (07:41)
[2019-12-10] MEDS: ASPIRIN 81 MG ECTAB PO SCH (07:41)
[2019-12-10] MEDS: GABAPENTIN 600 MG TAB PO SCH ×2 (07:41→20:42)
[2019-12-10] MEDS: lisinopriL 20 MG TAB PO SCH (07:41)
[2019-12-10] MEDS: VENLAFAXINE HCL XR 75 MG CAPXR PO SCH (07:42)
[2019-12-10] MEDS: ROSUVASTATIN CALCIUM 20 MG TAB PO SCH (07:42)
[2019-12-10] MEDS: CETIRIZINE HCL 10 MG TABLET PO SCH (07:42)
[2019-12-10] MEDS: INSULIN GLARGINE SOLOSTAR 100 UNITS/ML 3 ML PEN SC SCH ×2 (08:47→20:42)
[2019-12-10] MEDS: INSULIN ASPART 100 UNITS/ML 3 ML PEN SC SCH ×4 (08:47→20:43)
[2019-12-10] MEDS: ENOXAPARIN INJ 40 MG/0.4 ML SYR SQ SCH (08:48)
[2019-12-10 09:19] LABS: Basophils # (auto) 0.02 K/uL (0-0.2); Basophils % (auto) 0.2 %; Eosinophils # (auto) 0.28 K/uL (0-0.5); Eosinophils % (auto) 2.5 %; Hemoglobin 17.4 g/dL (12.0-16.0); Immature Granulocytes # (auto) 0.03 K/uL (0.00-0.02); Immature Granulocytes % (auto) 0.3 %; Lymphocytes # (auto) 4.23 K/uL (1.2-3.4); Lymphocytes % (auto) 37.4 %; Mean Corpuscular Hgb Conc 33.5 g/dL (32-36); Mean Corpuscular Volume 92.7 fL (80-100); Mean Platelet Volume 12.2 fL (7.4-10.4); Monocytes # (auto) 0.75 K/uL (0.11-0.59); Monocytes % (auto) 6.6 %; Neutrophils # (auto) 6.01 K/uL (1.4-6.5); Platelet Count 263 K/uL (130-400); RDW Coefficient of Variation 14.7 % (11.5-14.5); RDW Standard Deviation 49.2 fL (36.4-46.3); Red Blood Count 5.61 M/uL (4.2-5.4); White Blood Count 11.32 K/uL (4.8-10.8)
[2019-12-10 10:31] LABS: BUN Creatinine Ratio 13.7 (10-20); Calcium 9.5 mg/dl (8.5-10.1); Creatinine Clr Calc Pharmacy 36.4 ml/min; Est GFR (African American) 40.6; Potassium 4.4 mmol/L (3.5-5.1)
[2019-12-10] MEDS: ACETAMINOPHEN 325 MG TAB PO PRN (14:57)
--- NOTE | 2019-12-10 15:54 | Hospitalist Progress Note ---
Date of Service December 10, 2019 Assessment & Plan (1) Carotid artery dissection: (2) Aphasia: (3) Anxiety: (4) Depression: (5) Hypertension: (6) Sleep apnea: (7) CLL (chronic lymphocytic leukemia): (8) Osteopenia: (9) Diabetes mellitus type 2, uncontrolled: (10) Chronic kidney disease, stage 3: (11) Aneurysm, cerebral, nonruptured: (12) Acute CVA (cerebrovascular accident): 79 yo F with hx uncontrolled DM2, HTN, smoking hx, stable intracranial aneurysms who presented to the ED from home for acute aphasia and concern for TIA/Stroke. Acute CVA: - Head MRA negative for masses. 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 No vessel occlusion or high grade stenosis. - Brain MRI notes age-related involutional change noting advanced confluent subcortical and periventricular microangiopathic disease, Chronic lacunar infarcts identified in the thalami. - Neck CTA: 1. Bilateral 50% diameter narrowing of the common carotid arteries. 2. Atheromatous changes involving both internal carotid arteries without evidence of hemodynamically significant stenosis. 3. Short segment dissection of the proximal right internal carotid artery. 4. Occlusion of the right vertebral artery with multifocal areas of reconstitution. 5. Multifocal left vertebral artery stenoses not exceeding 50%. Postprocedural changes involving the distal left vertebral artery. - Head CT: radiodense material in distal vertebral artery possibly embolic material from previous L PICA coiling repair in 2016. No acute intracranial findings. - High risk for microangiopathic disease (HTN, uncontrolled DM2, smoking). - Last HgbA1c on 11/24/19 elevated at 12.0. - Last Lipid panel on 11/24/19 - Cholesterol elevated at 261 FGG=235 HDL=58 VLDL=42 ZJ=122. - Increased statin to 40 mg rosuvastatin this admission. - Cardiac ECHO shows EF >70%, Grade I Diastolic Dysfunction, no PFO or right to left shunt, mild aortic valve sclerosis. - Left atrium mildly dilated. 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 - Plavix 75 mg added to 81 mg ASA. - PT, OT, Speech consults: continue PT, OT, Speech therapy going forward. - For eventual placement to SNF; acute rehab denied despite peer to peer. DM2: - Hgb A1c 12.0 on admission. - Patient states that "her sugars are always in the 300s and potatoes are her weakness". - Discussed dietary changes at length. Suspect her microvessel ischemic changes are due to prolonged HTN, HLD, uncontrolled DM2. - Lantus 16u BID, SSI with goal BSG 100-140, correction factor 20, 1 unit for every 6 units of carbs. HTN: - Lisinopril 20 mg held in setting of permissive HTN. - BP normotensive without HTN medications. - Will restart lisinopril given DM2 diagnosis. HLD: - Crestor 10mg increased to 20mg this admission. - Follow up in 1 month to determine lipid profile on new dosing. Carotid artery dissection: - Short segment dissection of proximal R internal carotid artery. - Medically managing with Plavix, BP control. Anxiety - Home medications venlafaxine 225 mg po daily, hydroxyzine continued. Dispo: Acute Rehab pending placement DVT ppx: Heparin 5000u SQ q12 FEN/GI: Heart Healthy, DM2 Code Status: Full Code Present on Admission?: Yes Admission and Anticipated Discharge Date Admission Date: December 05, 2019 Anticipated date of discharge: 12/06/19 Supervising Physician Co-Signing Physician Notes I also saw the patient with the resident physician and confirmed rios portions of the history and physical examination. I agree with the impression and plan as noted above. Acute rehabilitation was denied; efforts are now underway to find a longterm facility that would be able to find a physical therapy need to recover from her acute left hemispheric CVA and subsequent sequelae including expressive aphasia and right hemiparesis. CVA -continue aspirin and added Plavix this admission, Crestor 20 mg daily with a recheck of a lipid profile in 6 to 8 weeks. Concerned with higher dose Crestor would be with the risk of intracranial hemorrhage given her known aneurysms. Diabetes, uncontrolled-education; insulin regimen adjusted given elevated blood sugars today. Subjective Without acute events overnight. Feels about the same with regard to speech. No shortness of breath or wheezing, no chest pain, no fevers or chills, no abdominal pain, no nausea or vomiting, no dizziness or headaches. Review of Systems Constitutional: no fever and no chills Respiratory: no cough and no dyspnea Cardiovascular: no chest pain, no dyspnea and no edema Gastrointestinal: no abdominal pain, no nausea, no vomiting, no constipation and no diarrhea/loose stools Genitourinary: no dysuria Neurologic: + localized weakness and + abnormal speech Physical Exam Constitutional: WD/WN, vitals as above cooperative Neck: normal visual inspection Respiratory: normal respiratory effort, lungs clear to auscultation able to speak in complete sentences; no audible wheezes Cardiovascular: RRR, no murmur, no edema Gastrointestinal (Abdomen): normal bowel sounds, soft, nontender, no hepatosplenomegaly Musculoskeletal: no cyanosis or clubbing LUE 4/5 strength, RUE 5/5 strength bilateral LE 5/5 strength Skin: no rashes, warm and dry Neurologic: mild facial droop Some stuttering of words sensation intact bilateral UE, LE, face Results & Data Results & Data ([facility]) Vital Signs (Past 12 Hours) Vital Signs Temp Pulse Pulse Resp BP BP Pulse Ox 12/10/19 15:16 36.8 C 76 20 105/51 L 96 12/10/19 11:34 83 12/10/19 11:19 36.8 C 80 18 113/70 93 12/10/19 06:44 36.8 C 81 20 110/65 93 12/10/19 04:11 78 18 94 Resident Activity Tracking Resident Involvement: Resident Care Provided Care Provided: Adult Hospital Medicine (1) Sleep apnea Sleep apnea type: unspecified type Qualified Code(s): G47.30 - Sleep apnea, unspecified (2) Diabetes mellitus type 2, uncontrolled Coma presence: without coma (3) Hypertension Hypertension type: essential hypertension Qualified Code(s): I10 - Essential (primary) hypertension
[2019-12-11] MEDS: LEVOTHYROXINE SODIUM 75 MCG TABLET PO SCH (05:37)
[2019-12-11 07:19] VITALS: PULSE 79; TEMP 97.9; O2SAT 93
[2019-12-11] MEDS: INSULIN ASPART 100 UNITS/ML 3 ML PEN SC SCH ×2 (07:47→11:59)
[2019-12-11] MEDS: INSULIN GLARGINE SOLOSTAR 100 UNITS/ML 3 ML PEN SC SCH (07:48)
[2019-12-11] MEDS: VENLAFAXINE HCL XR 75 MG CAPXR PO SCH (07:48)
[2019-12-11] MEDS: lisinopriL 20 MG TAB PO SCH (07:48)
[2019-12-11] MEDS: ROSUVASTATIN CALCIUM 20 MG TAB PO SCH (07:48)
[2019-12-11] MEDS: PANTOprazole 40 MG TAB PO SCH (07:48)
[2019-12-11] MEDS: ASPIRIN 81 MG ECTAB PO SCH (07:48)
[2019-12-11] MEDS: GABAPENTIN 600 MG TAB PO SCH (07:48)
[2019-12-11] MEDS: CLOPIDOGREL BISULFATE 75 MG TAB PO SCH (07:48)
[2019-12-11] MEDS: ENOXAPARIN INJ 40 MG/0.4 ML SYR SQ SCH (07:49)
[2019-12-11] MEDS: CETIRIZINE HCL 10 MG TABLET PO SCH (07:49)
[2019-12-11 08:45] LABS: Basophils # (auto) 0.02 K/uL (0-0.2); Basophils % (auto) 0.2 %; Eosinophils % (auto) 2.8 %; Hematocrit (blood only) 49.4 % (37-47); Hemoglobin 16.3 g/dL (12.0-16.0); Immature Granulocytes # (auto) 0.03 K/uL (0.00-0.02); Immature Granulocytes % (auto) 0.3 %; Lymphocytes % (auto) 34.8 %; Mean Corpuscular Hemoglobin 30.8 pg (25-34); Mean Corpuscular Volume 93.2 fL (80-100); Mean Platelet Volume 12.2 fL (7.4-10.4); Monocytes # (auto) 0.78 K/uL (0.11-0.59); Monocytes % (auto) 7.3 %; Neutrophils % (auto) 54.6 %; Platelet Count 241 K/uL (130-400); RDW Coefficient of Variation 14.8 % (11.5-14.5); RDW Standard Deviation 50.1 fL (36.4-46.3); White Blood Count 10.63 K/uL (4.8-10.8)
[2019-12-11 09:28] LABS: BUN Creatinine Ratio 15.1 (10-20); Calcium 9.6 mg/dl (8.5-10.1); Creatinine Clr Calc Pharmacy 33.6 ml/min; Est GFR (African American) 36.8; Est GFR (Non-African American) 31.8; Potassium 4.2 mmol/L (3.5-5.1)
--- NOTE | 2019-12-11 13:54 | Discharge Summary ---
Date of Service December 11, 2019 Admission HPI Per Admitting Provider Sharon Ochoa is a 79yo C female with history of DM, HLP, CKD, AF presenting with stroke-like symptoms. She was in her usual state of health earlier in the day. Around 13:00 she was returning home from an appointment with Endocrinology when she developed some difficulty ambulating, possibly some right sided weakness. Her symptoms somewhat improved, however, around 15:00 she developed some speech difficulty and worsening right sided weakness. Upon arrival to the ER patient found to be afebrile, sinus tachycardic and hypertensive. 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 Code Stroke was called and the case was discussed with Stroke team at [facility]. No tPA recommended. Patient is to complete stroke workup and be managed with DAPT and high intensity statin. Patient offers no complaints at this time. She denies WHIPPLE, visual deficit, numbness/weakness. She has expressive aphasia and becomes frustrated while trying to communicate. She has a loop recorder in place for evaluation of syncope. She was last seen by Cardiology on 12/03/19 and noted to have no significant arrhythmias but occasional atrial arrhythmia, two arrhythmias with wide complex most likely representing aberrancy. 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 Admission Exam Per Admitting Provider General: patient resting comfortably, NAD, non-toxic in appearance, expressive aphasia, patient able to answer to name only for orientation Skin: warm, dry, intact, no rashes or lesions HEENT: NC/AT, PERRL, EOMI, anicteric sclera, conjunctiva without injection, external ear normal to inspection and nontender, nares patent, moist mucus membranes, dentition intact, no oropharyngeal lesions, neck supple, trachea midline, no LAD, no thyromegaly, no JVD Heart: +S1/S2, regular, tachycardic, no m/r/g Lungs: equal air entry bilaterally, no rales/rhonchi/wheezes Abd: +BS, soft, NT/ND, no masses/organomegaly/ascites Ext: warm, 2+ pulses in UE/LE bilaterally, no clubbing/cyanosis or edema Neuro: Expressive aphasia, patient becomes frustrated while trying to speak, she is able to tell me her name and answer some questions. Speech is clear but delayed with word-finding issues, occasional misuse of words, no facial droop, EOMI, sensation to light touch seems to be intact, weakness of left hand helper steel fabrication otherwise MS is intact 5/5, gait not assessed Principal Diagnosis left hemispheric CVA Discharge Exam Constitutional WD/WN, vitals as above Eyes PERRL, conjunctivae normal, anicteric sclerae ENMT external ear and nose normal, oropharynx normal Neck normal visual inspection Respiratory normal respiratory effort, lungs clear to auscultation Cardiovascular RRR, no murmur, no edema Gastrointestinal (Abdomen) normal bowel sounds, soft, nontender, no hepatosplenomegaly Musculoskeletal no cyanosis or clubbing, extremities motor strength 5/5 Skin no rashes, warm and dry Neurologic intermittent difficulty with word finding Psychiatric A+Ox3, euthymic affect Discharge Data Allergies Allergy/AdvReac Type Severity Reaction Status Date / Time adhesive Allergy Intermediate BLISTERS Verified 12/05/19 10:29 clopidogrel Allergy Unknown GI UPSET Verified 12/05/19 10:29 liraglutide Allergy Unknown GI UPSET Verified 12/05/19 10:29 phenol Allergy Unknown GI UPSET Verified 12/05/19 10:29 propylene glycol Allergy Unknown GI UPSET Verified 12/05/19 10:29 amitriptyline AdvReac Severe HALLUCINATI Verified 12/05/19 10:29 ONS atorvastatin AdvReac Intermediate JOINT PAIN Verified 12/05/19 10:29 cephalexin AdvReac Intermediate N/V Verified 12/05/19 10:29 pioglitazone AdvReac Intermediate SEVERE Verified 12/05/19 10:29 FATIGUE tramadol AdvReac Intermediate N/V Verified 12/05/19 10:29 codeine AdvReac Mild NAUSEA AND Verified 12/05/19 10:29 VOMITING metformin AdvReac Mild NAUSEA AND Verified 12/05/19 10:29 VOMITING doxycycline AdvReac Unknown GI SYMPTOMS Verified 12/05/19 10:29 saccharin AdvReac Unknown diarrhea Verified 12/05/19 10:29 hydroxychloroquine AdvReac Diarrhea Verified 12/05/19 10:29 [From Plaquenil] zoster vaccine live AdvReac Verified 12/05/19 10:29 [From Zostavax (PF)] Consultations 12/05/19 19:04 ED Decision to Admit Stat 12/05/19 20:55 Consult Case Management - Discharge Planning Routine Consult Neurology Routine 12/09/19 12:40 Consult [facility] strategic alliances manager Routine Ordered Studies 12/05/19 17:06 CT angio head w con Stat CT angio neck with con Stat CT head/brain wo con Stat 12/05/19 20:55 MR brain wo/w con Routine 12/05/19 22:02 MR angio head wo con Routine Hospital Course (1) Acute CVA (cerebrovascular accident): 79 yo F with hx uncontrolled DM2, HTN, smoking hx, stable intracranial aneurysms admitted for left hemispheric CVA. Acute Left Hemispheric CVA: - Head MRA negative for masses. 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 No vessel occlusion or high grade stenosis. - Brain MRI notes age-related involutional change noting advanced confluent subcortical and periventricular microangiopathic disease, Chronic lacunar infarcts identified in the thalami. - Neck CTA: 1. Bilateral 50% diameter narrowing of the common carotid arteries. 2. Atheromatous changes involving both internal carotid arteries without evidence of hemodynamically significant stenosis. 3. Short segment dissection of the proximal right internal carotid artery. 4. Occlusion of the right vertebral artery with multifocal areas of reconstitution. 5. Multifocal left vertebral artery stenoses not exceeding 50%. Postprocedural changes involving the distal left vertebral artery. - Head CT: radiodense material in distal vertebral artery possibly embolic material from previous L PICA coiling repair in 2016. No acute intracranial findings. - High risk for microangiopathic disease (HTN, uncontrolled DM2, smoking). - Last HgbA1c on 11/24/19 elevated at 12.0. - Last Lipid panel on 11/24/19 - Cholesterol elevated at 261 FUA=831 HDL=58 VLDL=42 TP=919. - Increased statin to 40 mg rosuvastatin this admission. - Cardiac ECHO shows EF >70%, Grade I Diastolic Dysfunction, no PFO or right to left shunt, mild aortic valve sclerosis. - Left atrium mildly dilated. 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 - Neuro Consult: - improve glucose control. - Plavix 75 mg added to 81 mg ASA. - PT, OT, Speech consults: continue PT, OT, Speech therapy going forward at home. - Visualized faint left hemispheric CVA on MRI. - Due to continued improvement in functional status and speech throughout hospital course, she was discharged home with home health PT/OT/Speech therapy. DM2: - Hgb A1c 12.0 on admission. - Patient states that "her sugars are always in the 300s and potatoes are her weakness". - Discussed dietary changes at length. Suspect her microvessel ischemic changes are due to prolonged HTN, HLD, uncontrolled DM2. - Lantus 16u BID, Novolog 10u qAC prescribed. - Recommend BSG follow up at [facility] to ensure no extreme lows/highs. - Patient was not adequately controlled on 70/30 insulin and this likely contributed to her CVA, so have d/c'ed in favor of the above. CKD: - Patient with history of CKD with baseline Cr ~1.3. - Cr on discharge 1.54, not an CARMELO and patient needed to be reminded today to drink fluids. - This is also in the setting of restarting her REYES about 2 days ago. - Encouraged good PO fluid intake. - Recommend repeat BMP at [facility] visit. HTN: - Lisinopril 20 mg held in setting of permissive HTN for several days then restarted. - Resumed prior to discharge. HLD: - Crestor 10mg increased to 20mg this admission. - Follow up in 1 month to determine lipid profile on new dosing. - Did not increase to high intensity statin due to high risk of intracranial hemorrhage 2/2 cerebral aneurysm. Carotid artery dissection: - Short segment dissection of proximal R internal carotid artery. - Medically managing with Plavix, BP control. Anxiety - Home medications venlafaxine 225 mg po daily, hydroxyzine continued. Dispo: Home with Home Health Services (PT/OT/Speech) (2) Carotid artery dissection: (3) Aphasia: (4) Anxiety: (5) Depression: (6) Hypertension: (7) Sleep apnea: (8) CLL (chronic lymphocytic leukemia): (9) Osteopenia: (10) Diabetes mellitus type 2, uncontrolled: (11) Chronic kidney disease, stage 3: (12) Aneurysm, cerebral, nonruptured: Total Time Total Time Spent Total Time Spent (In Minutes): I personally spent 40 minutes seeing this patient, coordinating care, and documenting. Discharge Plan Discharge Items Patient Disposition: Home - Home Health Services Reason For Visit: POSSIBLE CVA Discharge Diagnosis: acute CVA Activity: Per Instructions section Non-emergency contact: Primary Care Provider and Specialist Call non-emergency contact if: you have any medication questions, your symptoms worsen and your temperature is above 101 Follow-up/Referrals: José Miguel De La Cruz MD [Primary Care Provider] - 12/17/19 1:30 pm (You have an appointment with Oanh Samayoa at [address] [place] [address] on 12/16 at 1:30. If you can not keep this appoinment please call [phone] ) Connor Mario PA-C [Physician Chief Relay Tester] - 02/25/20 8:30 am (Please, follow up with Connor Mario PA-C on SundayFebruary 24 at 8:30 am. *If you need to change this appointment, call the office at [phone].) Diet: Carb Consistent or DM2 and Heart Healthy Addtl Attending Provider Instructions: You were admitted to the hospital for difficulty speaking and arm and leg weakness. You were found on imaging of your head to have a stroke. This is likely due to elevated blood sugars, high cholesterol, and high blood pressure over many years. While you were here we changed your medication regimen in order to help control your blood sugar and keep you from having strokes in the future. Please see below for the instructions regarding your new insulin. 1) You will no longer take the 70/30 insulin. 2) You will start taking Lantus, 16 units every 12 hours. 3) You will start taking Novolog (meal insulin) 10 units with every meal. 4) You should check your sugars about two hours after you eat to see what your sugar is and "check your work" with regard to your carbohydrate eating. 5) We talked for a long time about carbohydrates like potatoes, rice, bread, pasta, cakes, chips, cookies. It is important that you decrease the amount of these foods with each meal to make sure you sugars stay well controlled. You should aim to have no more than a quarter of your plate be the above foods. The rest of the plate should be lean meats and vegetables (such as broccoli, asparagus, salad). 7) You will START TAKING Plavix, one pill each day. This medicine will work with your aspirin to help thin your blood to prevent clots. You will KEEP TAKING your aspirin. 8) We increased your rosuvastatin dose. You will now take 20 milligrams, once daily. This is a cholesterol pill to help decrease plaques forming in your ves sels. 9) You will have home health physical and occupational therapy, as well as speech therapy come to the house to help you get your strength back and work on your speech. These prescriptions have been sent to the [facility]. You will have a follow up in one week with Dr. De La Cruz to talk about your hospitalization. You should call his office to set up this appointment. You have an appointment with Connor Mario on February 24. The time for the appointment is listed above. If you have any shortness of breath, chest pain, fevers, chills, nausea or vomiting, further weakness or difficulty speaking or swallowing, please seek urgent medical attention. diabetes education: why to care -as we discussed, the fundamental issue that just never really gets "bluntly" taught to our diabetics is that the main reason to care is that "high sugars clog arteries" -- basically the longer you run high, and the higher you run, the more you're knocking off blood vessels you can't get back -it's what is called "microvascular ischemia" - but basically what that means is that sugar molecules will cork up small blood vessels - and over time if enough of those small blood vessels get corked, then there's not enough blood for the organ/tissue that needs blood flow -the "most famous" complications of diabetes all show this - blindness is basically because the back of the eye has a web of blood vessels - when they get clogged vision loss results; kidney problems are because microscopically the kidneys are basically a ball of tiny blood vessels and so as high sugars cork them up kidney failure slowly results, and neuropathy and foot problems are because the long blood vessels that carry blood down to our feet, as they branch out into smaller and smaller vessels, get clogged up killing off the nerves and preventing good flow to the skin to allow for healing. while those are "the famous" diabetes complications, actually the most common we see are heart attacks and strokes - because of high sugars blocking up the blood flow to your heart or brain -for practical purposes, basically any time your sugar is above about 150-160, there will be the potential for a little bit of damage to occur -in terms of A1c readings, more or less whenever your A1c is above 7, that's about the line where blood vessel damage starts to occur how lifestyle "causes" (or at least HEAVILY influences) type 2 diabetes -generically speaking, the data would suggest that type 2 diabetes is an illness that is far more lifestyle than genetics (it would be fair to say on average that it's about an 80% eating/exercise illness, and about a 20% genetic illness) -a way to understand how this comes about is that when you eat something with a lot of simple carbs (breads, pastas, potatoes, in addition to cakes, candies, sodas and ice cream -- but in [place] way more of my diabetics are in trouble because of bread and potatoes than cakes and candies) those carbs get absorbed rapidly into your bloodstream. because your sugar rises, your pancreas has to make a lot of insulin to get that sugar out of your bloodstream and into your muscles. when your muscles see all that insulin, they basically "get addicted" to it and want more the next time. in this way, over time foods that you eat take more and more insulin to get out of your bloodstream and into your muscles because your muscles get progressively more and more addicted to insulin. -eventually your pancreas is making as much insulin as it can possibly produce, but your muscles still want more - so sugars stay up all the time (or we have to put you on medicines to make your muscles more sensitive to insulin, or insulin shots to "fill the gap" ----the good news with this is that when you get away from those simple carbs, you can actually regress how insulin resistant you are (ie make yourself "less of a diabetic") - so as you work to make improvements in eating habits, you should be able to get under better control pretty quickly (and what's really cool is frequently one people are getting away from the bad carbs they can also do better control with less medicine over time!) -just as important - and as you rehab you'll be able to work up to this - is that 20-30 minutes of light exercise (like a walk) actually can make your muscles more sensitive (less addicted) to insulin for about 12 hours at a time -- and when you do this repeatedly you can start to "rewrite your metabolism" bad carbs/checking sugar after you eat -for you, the quick review of your diet showed bad carbs easily evident in the toast, probably in the cereal, in the bread from your sandwich, the potato chips, the potatoes with dinner, and the ice cream -- however, that's just a small sampling of foods you eat, and there will be ongoing questions of "how would food X be for me?" -- the easiest way to learn as it relates to your diabetes is to use your body as your guide. when we eat, food gets absorbed over the following hour or so, and so if you check a sugar about 2 hours after you eat, you can "grade your work" and get a good idea of how the food affected your body -as we discussed above, ideally you'd see sugars between 100-150 in that ifu-[id number]-[id number]-eating sugar check, but for now with an A1c of 12, it might take a bit until we get things down better (between eating less carbs and making your metabolism less diabetic on the "remission" side of things and by increasing insulin on the "treat so we at least don't clog arteries" side) - but even when all of your sugars are too high, you'll still be able to see the difference between foods that make your sugar a little high, and ones that really send it up. -you'll want to work to eliminate the "bad carbs" (the breads, potatoes, etc) as best you can - remembering that there is a whole world of food still left to choose from. when i talk to my "fellow david willard" about getting rid of bread, pasta, potatoes, etc, they all look at me like i'm crazy, but if you look at lean proteins (chicken, fish, etc) and fruits and vegetables (with potatoes being the exception) basically all of that is going to be fine - it's just that it takes a little time to get used to changing habits (and right now your metabolism is SO insulin resistant that you'll probably still even see a little spike in sugar from fruits / vegetables/etc) -"cheating" (or treats) - we're all human, so of course there will be times that you might want a little ice cream - but as we discussed, the mindset shift is that you'll want to view it as a "risk/benefit" balance or "a controlled poisoning" where the "risk" is that you'll spike a sugar and possibly clog a few capilliaries, but the "benefit" is that as a human being sometimes a treat is a nice break. but if you look at it is something that should be viewed as an exception, then you won't do it as often and in that case, "a little damage" can be worth the trouble. again - check your sugar about 2 hours after "treats" too so you can assess how much they're worth it Pending Studies at Discharge: No Stand-Alone Forms: My [facility] [employer] Sport Highlights, Smoking Cessation Medications and DC Order Prescriptions: New clopidogrel 75 mg Tablet 75 mg PO QAM Qty: 30 RF: 0 rosuvastatin [Crestor] 20 mg Tablet 20 mg PO QAM Qty: 30 RF: 0 Lantus Solostar U-100 Insulin 100 unit/mL (3 mL) Insulin Pen 16 unit SC BID 30 Days Qty: 9.6 RF: 0 insulin aspart U-100 100 unit/mL (3 mL) insulin pen 10 units SQ AC Qty: 15 RF: 0 Continued Tirosint 75 mcg capsule 75 mcg PO DAILY Qty: 30 RF: 1 lisinopril 20 mg tablet 20 mg PO DAILY Qty: 90 RF: 3 lorazepam 0.5 mg tablet 0.5 mg PO TID PRN (Reason: Anxiety or muscle spasm) Qty: 30 RF: 0 hydroxyzine HCl 10 mg tablet 10 mg PO HS PRN (Reason: itching) Qty: 90 RF: 1 gabapentin 300 mg capsule 600 mg PO BID Qty: 360 RF: 1 cetirizine 10 mg capsule 10 mg PO DAILY Qty: 30 RF: 3 (DME) pen needle, diabetic [BD Ultra-Fine Micro Pen Needle] 32 gauge x 1/4" needle See Dose Instructions .ROUTE .MEDSUPPLY Qty: 50 RF: 0 (DME) OneTouch Ultra Blue Test Strip Strip See Dose Instructions .ROUTE .MEDSUPPLY Qty: 10 RF: 0 (DME) lancets [OneTouch Delica Lancets] 33 gauge misc See Dose Instructions .ROUTE .MEDSUPPLY Qty: 100 RF: 0 solifenacin 5 mg tablet 5 mg PO DAILY RF: 0 omeprazole 40 mg capsule,delayed release(DR/EC) 40 mg PO DAILY RF: 0 venlafaxine 75 mg capsule,extended release 24hr 225 mg PO DAILY RF: 0 aspirin 81 mg tablet,chewable 81 mg PO DAILY RF: 0 acetaminophen [Mapap (acetaminophen)] 325 mg Tablet 650 mg PO Q4H PRN (Reason: pain) Qty: 30 RF: 0 PreserVision Lutein 226 mg-200 unit -5 mg-0.8 mg Capsule 1 cap PO DAILY RF: 0 Discontinued Novolog Mix 70-30FlexPen U-100 100 unit/mL (70-30) insulin pen 56 units SQ BID Qty: 45 RF: 5 rosuvastatin 10 mg tablet 10 mg PO DAILY Qty: 30 RF: 2 Discharge Orders: Discharge Order (Routine); Ordered 12/11/19 Ordered By: Luz Maria Stewart Admission Data Admit Date/Time: 12/05/19 19:58 Attending Provider: Jani Domingo Admit Provider: Humaira Myers Primary Care Provider: José Miguel De La Cruz Other Providers: Humaira Myers ; [facility] ; Harjinder Dove ; Marciano Alexander ; [facility] ; [facility] ; [facility] Other Interventions: Discharge Summary Assessment (RN) Last Done: 12/11/19 14:26 Supervising Physician Co-Signing Physician Notes I also saw the patient with the resident physician and confirmed rios portions of the history and physical examination. I agree with the impression and plan as noted above. Patient did well today in therapy. As noted before, acute redilatation was denied and efforts were underway to find a prison facility. The patient's desire was to return home, and given the ongoing coronavirus pandemic and her success in therapy here, discharged to home with home services to include therapy seem very reasonable. Follow-up instructions including appointments and medication changes were reviewed with the patient in detail today. She was able to verbalize understanding of both. CVA -continue aspirin and added Plavix this admission, Crestor 20 mg daily with a recheck of a lipid profile in 6 to 8 weeks. Concerned with higher dose Crestor would be with the risk of intracranial hemorrhage given her known aneurysms. Diabetes, uncontrolled-education; insulin regimen adjusted given elevated blood sugars today. Resident Activity Tracking Resident Involvement: Resident Care Provided Care Provided: Adult Hospital Medicine
[2019-12-11 14:26] VITALS: BP 110/65
== END 2019-12-11 16:19 | disposition home health service (06) | DRG 64 ==
LOC: ED 17:16 → 2S 19:58 → SUATTDRO 19:58 → 2S 20:25 → 2W 12-07 16:13

== ENCOUNTER 2020-01-27 11:25 | Observation (INO) ==
[2020-01-27] MEDS ORDERED: GLUCAGON FOR INJ 1 MG VIAL SQ PRN (13:21)
[2020-01-27] MEDS ORDERED: CARBOHYDRATES FOR HYPOGLYCEMIA PO PRN (13:21)
[2020-01-27] MEDS ORDERED: GLUCOSE 40% GEL 15 GM TUBE PO PRN (13:21)
[2020-01-27] MEDS ORDERED: DEXTROSE 50% 50 ML SYRINGE IV PRN (13:21)
[2020-01-27] MEDS ORDERED: GLUCOSE 10 TABS/TUBE PO PRN (13:21)
--- NOTE | 2020-01-27 13:28 | History & Physical Report ---
Date of Service January 27, 2020 Assessment & Plan (1) Frequent falls: Difficult history to take from patient. not available at bedside or by phone. We will consult her estimating manager to rule out any arrhythmia given loop recorder implanted. She has known lumbar spinal stenosis but no significant weakness on exam - her main issue is with coordination -she feels this is worse since her stroke although looking at previous notes it appears this issue is longstanding and possibly more related to her spinal stenosis. (2) Failure to thrive: PT/OT/speech assessments. Likely need for placement. (3) Elevated WBC count: Unclear etiology for this. Lymphocyte count at her baseline regarding CLL. No pneumonia suspected on chest x-ray. No fevers or chills. Urine incontinence at baseline - no dysuria, UA pending at this time. (4) Lumbar spinal stenosis: Possibly contributing to above but this does not appear to be an acute issue. She has good strength in both legs. Assess with PT/OT eval's. Consider orthopedic consult if felt to be acutely contributing towards her decline and inability to be safe at home. (5) History of CVA (cerebrovascular accident): Recommend clarifying with neurology whether she is still to take dual antiplatelet therapy or stop her aspirin at this time. Continue rosuvastatin 20 mg p.o. daily (6) Expressive aphasia: Residual from recent stroke. (7) Vertigo: Possible cause of fall as above. ?BPPV although history is unclear from patient as dizziness always occurs when sitting up and never when she turns her head to bed. (8) Urinary incontinence: Bladder scan every shift. Call provider if > 400ml to assess for urinary retention given lumbar spinal stenosis diagnosis. Plan is to see a uro-carbon furnace operator as an outpatient per PCP notes. Not an acute issue. (9) Anxiety: Venlafaxine last prescribed in September. No outpatient notes suggestive she should have stopped this (should have run out November 18 if taking how it is prescribed). I suspect she has been taking this and was likely placed back on it during hospitalization in November full dose of 225 mg. Restart 75 mg p.o. daily (10) Depression: Venlafaxine as above for anxiety (11) Hypothyroidism: TSH WNL Continue levothyroxine 75 mcg p.o. daily (12) Hypertension: Continue lisinopril 20 mg p.o. daily (13) Sleep apnea: BiPAP 19/15 required to eliminate nocturnal hypoxia however patient was noncompliant with this. Previous outpatient sleep medicine noted possibly reducing settings to encourage compliance. Start BiPAP 15/10 at bedtime (14) Polycythemia: Suspect this is secondary to smoking and nocturnal hypoxia. Given recent CVA will consult hematology for recommendations on therapeutic phlebotomy regarding this. (15) Nicotine dependence: Declines nicotine patch at this stage. Continue to encourage smoking cessation. (16) Laryngopharyngeal reflux: Switch omeprazole for pantoprazole as per hospital formulary (17) Diabetes mellitus type 2, uncontrolled: HbA1c 12.5. Chronically uncontrolled although unclear whether this is diet or medication noncompliance related. Initially we will give reduced dose to avoid hypoglycemia with Lantus 10 units twice daily, NovoLog 110-140, correction factor 35, carb ratio 12 (18) CLL (chronic lymphocytic leukemia): Notable history of this. Does not appear to be her acute issue. Admission and Anticipated Discharge Date Admission Date: January 27, 2020 History of Present Illness Chief Complaint: Failure to thrive Primary Care Provider: Sumit De La Cruz MD Sharon Ochoa is a 79-year-old female who presents as a direct admission from Dr. De La Cruz's office due to frequent falls at home and failure to thrive. Discussion with Dr. De La Cruz earlier today he reports concern that she is not taking her medications properly, unclear diagnosis for frequent falls (notably had recent stroke), unable to get PT/OT assessments at her house and unable to get a direct admission to [facility]. Mrs. Ochoa appears visibly upset today. She is very distressed about her recent admission in November for stroke. She feels no work-up was done despite an extended stay with usual routine stroke work-up. She reports no one discussed her diet for her diabetes despite extensive documentation of this with her discharge summary. She is very concerned that she was taken off her usual Humulin 70/30 and switch to a basal bolus regimen which she feels has made her diabetes much harder to control despite her HbA1c being very poor when she was admitted for stroke in November. She is unsure about receiving any physical therapy, occupational therapy or speech therapy after discharge. I understand from Dr. De La Cruz that no home health agencies were available in the area where she lives. We discussed her medications and she is unsure whether she is taking the venlafaxine which has not been filled since September. She does note taking her insulin as prescribed and reports blood sugar glucose levels are usually in the 400-500s. She has a number of longstanding issues which we discussed including urinary incontinence, back pain, lower extremity coordination, frequent falls (possibly more frequent since her stroke), diabetes with poor glucose control, generalized fatigue, anxiety, depression - however from our discussion and reading previous notes it does not appear she has any acute problems since stroke admission in November. Her main issue appears to be lack of understanding of her medications, safety at home given frequent falls, questionably taking her medications correctly and unable to receive physical therapy, Occupational Therapy and speech therapy at her house. Allergies Allergy/AdvReac Type Severity Reaction Status Date / Time adhesive Allergy Intermediate BLISTERS Verified 12/16/19 15:25 amitriptyline AdvReac Intermediate HALLUCINATI Verified 01/27/20 14:51 ONS atorvastatin AdvReac Intermediate JOINT PAIN Verified 12/16/19 15:25 cephalexin AdvReac Intermediate N/V Verified 12/16/19 15:25 pioglitazone AdvReac Intermediate SEVERE Verified 12/16/19 15:25 FATIGUE tramadol AdvReac Intermediate N/V Verified 12/16/19 15:25 clopidogrel AdvReac Mild GI UPSET Verified 01/27/20 14:51 codeine AdvReac Mild NAUSEA AND Verified 12/16/19 15:25 VOMITING doxycycline AdvReac Mild GI SYMPTOMS Verified 01/27/20 14:51 hydroxychloroquine AdvReac Mild Diarrhea Verified 01/27/20 14:51 [From Plaquenil] liraglutide AdvReac Mild GI UPSET Verified 01/27/20 14:51 metformin AdvReac Mild NAUSEA AND Verified 12/16/19 15:25 VOMITING phenol AdvReac Mild GI UPSET Verified 01/27/20 14:51 propylene glycol AdvReac Mild GI UPSET Verified 01/27/20 14:51 saccharin AdvReac Mild diarrhea Verified 01/27/20 14:51 zoster vaccine live AdvReac Unknown Unknown Verified 01/27/20 14:51 [From Zostavax (PF)] Home Medications Home Medications Medication Instructions Recorded Confirmed Type PreserVision Lutein 1 cap PO DAILY 09/04/18 12/16/19 History cetirizine 10 mg capsule 10 mg PO DAILY #30 cap 01/14/19 12/16/19 Rx aspirin 81 mg PO DAILY 01/21/19 12/16/19 History acetaminophen [Mapap 650 mg PO Q4H PRN #30 tab 01/25/19 12/16/19 Rx (acetaminophen)] levothyroxine 75 mcg capsule 75 mcg PO DAILY #30 cap 03/24/19 12/16/19 Rx lisinopril 20 mg tablet 20 mg PO DAILY #90 tab 08/14/19 12/16/19 Rx lorazepam 0.5 mg tablet 0.5 mg PO TID PRN #30 tab 11/11/19 12/05/19 Rx hydroxyzine HCl 10 mg tablet 10 mg PO HS PRN #90 tab 11/19/19 12/16/19 Rx blood sugar diagnostic #10 ea 12/05/19 12/16/19 History lancets 33 gauge #100 ea 12/05/19 12/16/19 History omeprazole 40 mg capsule,delayed 40 mg PO DAILY cap 12/05/19 12/16/19 History release venlafaxine 75 mg capsule,extended 225 mg PO DAILY cap 12/05/19 12/16/19 History release 24 hr insulin aspart U-100 10 units SQ AC #15 ml 12/09/19 12/16/19 Rx gabapentin 300 mg capsule 600 mg PO BID #360 cap 12/15/19 12/16/19 Rx clopidogrel 75 mg tablet 75 mg PO QAM #90 tab 12/16/19 12/16/19 Rx hydrocodone 5 mg-acetaminophen 325 1 tab PO Q8H PRN #30 tab 12/16/19 12/16/19 Rx mg tablet rosuvastatin 20 mg tablet 20 mg PO QAM #90 tab 12/16/19 12/16/19 Rx pen needle, diabetic 32 gauge x #100 ea 12/22/19 Rx 1/4" Lantus Solostar U-100 Insulin 100 16 unit SUBCUT BID #15 ml NS 01/26/20 Rx unit/mL (3 mL) subcutaneous pen Novolog Flexpen U-100 Insulin 100 10 unit SUBCUT TID #15 ml NS 01/26/20 Rx unit/mL (3 mL) subcutaneous Past Med/Surg History Medical History Allergic rhinitis Aneurysm "in back of my head" Aneurysm, cerebral, nonruptured Asthma Asymptomatic hyperuricemia Atrial aneurysm Atrial fib/flutter, transient Breast cancer Carotid artery stenosis Carpal tunnel syndrome Chronic kidney disease, stage 3 Chronic obstructive pulmonary disease Deep vein thrombosis Diabetes mellitus type 2, uncontrolled Diabetic nephropathy Diverticulosis Gait disturbance Gastroesophageal reflux disease Hyperlipidemia Hyperplastic colon polyp Internal hemorrhoids Laryngopharyngeal reflux Lumbar pain Lumbar radiculopathy Nicotine dependence Nonalcoholic steatohepatitis Obesity On home oxygen therapy Osteoarthritis bilateral knees, legs, hands Osteopenia Seborrheic keratosis Sensorineural hearing loss (SNHL) of both ears Short-term memory loss Sleep related hypoxia TMJ syndrome Urinary incontinence Vertigo Vitamin D deficiency Surgical History H/O varicose vein ligation and stripping History of appendectomy History of brain surgery Cerebral angiogram and stent-assisted coil embolization of the It PICA aneurysm. 12/22/2015 History of carotid endarterectomy History of cataract surgery Right: July 2012 Left: August 2012 History of colonoscopy History of hysterectomy Ovaries intact History of mastectomy bilateral September 2009 History of parathyroid surgery Excision of benign neoplasm History of shoulder surgery Right shoulder arthroscopic labral debridement, subacromial decompression, and acromioplasty excision distal clavicle, biceps tenotomy. 06/15/2014 History of total knee replacement left 01/11/2012 Family History Grandmother No problems noted. Father , in his 50s of lung cancer Lung disease Lung cancer Mother , in her 70s of cancer Cancer Hypertension Unknown , Niece at 37 Colon cancer Son Anxiety Depression Kidney stones Alcohol abuse Grandmother (Maternal) Lung cancer Denies family history of Ovarian cancer Prostate cancer Myocardial infarction Breast cancer Bleeding disorder Social History Smoking Status: Current some day smoker Age Started Using Tobacco: 16; Cigarettes Per Day: 2; Second Hand Exposure: Yes; Do You Dip or Chew Tobacco: No; Tobacco Cessation Education Requested by Patient: No Hx Alcohol Use: Yes Alcohol type: beer Hx Substance Use: No Preferred Language: Jamaican Communication Ability: Unable Visual Impairment: No Limitations Hearing Ability: Normal Scientific Director Required: No Beliefs That Will Affect Care: None marital status: Current Living Situation: Spouse Current Living Situation Comment: Home current occupational status: retired 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 Other Information That Helps Us Care for You: No Feels Safe at Home: Yes Safety Concerns: Feels Safe At This Time Review of Systems Review of Systems: All systems reviewed & are unremarkable except as noted in HPI & below Physical Exam Constitutional: well developed; + not well nourished and no acute distress Eyes: PERRL, conjunctivae normal, anicteric sclerae ENMT: external ear and nose normal, oropharynx normal Neck: trachea midline, no thyromegaly Respiratory: normal respiratory effort, lungs clear to auscultation Auscultation: no crackles and no wheezes Cardiovascular: Rate/Rhythm: regular rate and regular rhythm Heart Sounds: no murmur Vessels: no JVD Extremities: normal capillary refill and + pedal edema (1+ to mid shins equal b/l); no calf tenderness Gastrointestinal (Abdomen): normal bowel sounds, soft, nontender, no hepatosplenomegaly Musculoskeletal: no cyanosis or clubbing, extremities motor strength 5/5 Skin: no rashes, warm and dry Neurologic: moves all extremities and awake; no focal motor deficits (No late ralizing weakness, no foot drop) and not confused Speech / Cognition: + expressive aphasia (Moderate) Motor/Sensory: no tremor and no pronator drift Cranial Nerves: PERRL, EOM intact bilaterally, normal facial strength, tongue midline, able to rotate head bilaterally, able to elevate shoulders bilaterally and no nystagmus Psychiatric: Orientation: alert and oriented x 3 Affect: + tearful affect Mood: + anxious mood Genitourinary: no CVA tenderness Lymphatic: no cervical or axillary lymphadenopathy Results & Data Results & Data ([facility]) Diagnostic Findings SINGLE VIEW CHEST IMPRESSION: No active disease in the chest. ECG Indication: other (Frequent falls) Rate (beats per minute): 96 Rhythm: normal sinus Findings: + PAC (Archanaemleana) Comparison ECG Date: from (December 05, 2019) Change: the following changes noted (PACs now present) Code Status & VTE Plan Code Status Full as discussed with the patient VTE Prophylaxis Plan VTE Prophylaxis will be ordered: Yes PG Care Time/CCT Total # of Minutes Spent Total Time Spent with Patient: Total time spent is greater than 50% in coordination of care (as documented) at patient's floor/unit and/or counseling patient: Coding Level of Care Code 34283 OBS Care - Level 3 Diagnoses Frequent falls R29.6 Failure to thrive Elevated WBC count D72.829 Lumbar spinal stenosis M48.061 History of CVA (cerebrovascular accident) Z86.73 Expressive aphasia R47.01 Vertigo R42 Urinary incontinence R32 Anxiety F41.9 Depression F32.9 Hypothyroidism E03.9 Hypothyroidism type: unspecified Hypertension I10 Hypertension type: essential hypertension Sleep apnea G47.30 Sleep apnea type: unspecified type Polycythemia D75.1 Nicotine dependence F17.200 Laryngopharyngeal reflux K21.9 Diabetes mellitus type 2, uncontrolled E11.65 Coma presence: without coma CLL (chronic lymphocytic leukemia) C91.90 (1) Sleep apnea Sleep apnea type: unspecified type Qualified Code(s): G47.30 - Sleep apnea, unspecified (2) Hypothyroidism Hypothyroidism type: unspecified Qualified Code(s): E03.9 - Hypothyroidism, unspecified (3) Diabetes mellitus type 2, uncontrolled Coma presence: without coma (4) Hypertension Hypertension type: essential hypertension Qualified Code(s): I10 - Essential (primary) hypertension
[2020-01-27 14:05] LABS: Basophils # (auto) 0.02 K/uL (0-0.2); Basophils % (auto) 0.1 %; Eosinophils # (auto) 0.19 K/uL (0-0.5); Eosinophils % (auto) 1.4 %; Hematocrit (blood only) 50.8 % (37-47); Hemoglobin 17.4 g/dL (12.0-16.0); Immature Granulocytes # (auto) 0.04 K/uL (0.00-0.02); Immature Granulocytes % (auto) 0.3 %; Lymphocytes # (auto) 4.43 K/uL (1.2-3.4); Lymphocytes % (auto) 32.3 %; Mean Corpuscular Volume 90.6 fL (80-100); Mean Platelet Volume 12.5 fL (7.4-10.4); Monocytes # (auto) 0.68 K/uL (0.11-0.59); Neutrophils # (auto) 8.36 K/uL (1.4-6.5); Neutrophils % (auto) 60.9 %; Platelet Count 264 K/uL (130-400); RDW Coefficient of Variation 14.1 % (11.5-14.5); RDW Standard Deviation 46.6 fL (36.4-46.3); Red Blood Count 5.61 M/uL (4.2-5.4); White Blood Count 13.72 K/uL (4.8-10.8)
[2020-01-27 14:08] LABS: Mean Corpuscular Hgb Conc 34.3 g/dL (32-36)
[2020-01-27 14:24] LABS: Albumin Level 3.7 gm/dl (3.4-5.0); BUN Creatinine Ratio 13.8 (10-20); Calcium 9.7 mg/dl (8.5-10.1); Est GFR (African American) 31.8; Est GFR (Non-African American) 27.4
[2020-01-27 14:27] LABS: Estimated Average Glucose 312 mg/dl; Hemoglobin A1C 12.5 % (4.5-5.6)
[2020-01-27 14:28] LABS: Albumin Globulin Ratio 0.9 (0.9-2); Bilirubin,Total 0.5 mg/dl (0.2-1); Globulin 3.9 gm/dl (2.5-4.0); Total Protein 7.6 gm/dl (6.4-8.2)
[2020-01-27 14:32] LABS: Partial Thromboplastin Ratio 0.9; Partial Thromboplastin Time 25.4 Seconds (21.0-31.0); Prothrombin Time 10.5 Seconds (9.0-12.0)
[2020-01-27] MEDS ORDERED: ACETAMINOPHEN 325 MG TAB PO PRN (14:48)
[2020-01-27 14:49] LABS: Beta-Hydroxybutyrate 1.1 mg/dl (0.2-2.81); Thyroid Stimulating Hormone 0.605 uIu/ml (0.300-4.500)
[2020-01-27] MEDS: INSULIN ASPART 100 UNITS/ML 3 ML PEN SC SCH ×3 (15:31→21:41)
[2020-01-27] MEDS: SODIUM CHLORIDE 0.9% 1000ML 1,000 ML IV SCH ×2 (15:31→22:33)
--- NOTE | 2020-01-27 17:08 | XRay Report ---
SINGLE VIEW CHEST CLINICAL HISTORY: Atypical chest pain. FINDINGS: An AP, portable, upright chest radiograph is compared to study dated 06/27/2017. The examina tion is degraded by portable technique, apical lordotic positioning, and patient rotation. The cardio mediastinal silhouette is unremarkable. There is mild bibasilar atelectasis. The lungs and pleural sp aces are otherwise clear. No pneumothorax is seen. The skeletal structures are osteopenic. The bony t horax is grossly intact. IMPRESSION: No active disease in the chest. ACT 112: Negative or not required by law. Electronically signed by: Elliot Carolina M.D. 01/27/2020 5:07 PM
[2020-01-27] MEDS ORDERED: INSULIN GLARGINE SOLOSTAR 100 UNITS/ML 3 ML PEN SC SCH (21:00)
[2020-01-27] MEDS: GABAPENTIN 300 MG CAP PO SCH (21:42)
[2020-01-28] MEDS ORDERED: INSULIN ASPART 100 UNITS/ML 3 ML PEN SC ONE
--- NOTE | 2020-01-28 06:02 | Electrocardiogram Report ---
Test Reason : Blood Pressure : / mmHG Vent. Rate : 096 BPM Atrial Rate : 096 BPM P-R Int : 192 ms QRS Dur : 076 ms QT Int : 388 ms P-R-T Axes : 048 007 059 degrees QTc Int : 490 ms Sinus rhythm with Premature atrial complexes in a pattern of bigeminy Inferior infarct (cited on or before 05-DEC-2019) Abnormal ECG When compared with ECG of 05-DEC-2019 17:57, Premature atrial complexes are now Present Confirmed by Mohit Avilez ([id number]) on 01/28/2020 6:02:08 AM Referred By: José Miguel De La Cruz Confirmed By:Mohit Avilez
[2020-01-28] MEDS: LEVOTHYROXINE SODIUM 75 MCG TABLET PO SCH (06:30)
[2020-01-28] MEDS: VENLAFAXINE HCL XR 75 MG CAPXR PO SCH (08:15)
[2020-01-28] MEDS: CETIRIZINE HCL 10 MG TABLET PO SCH (08:15)
[2020-01-28] MEDS: ASPIRIN 81 MG ECTAB PO SCH (08:16)
[2020-01-28] MEDS: CLOPIDOGREL BISULFATE 75 MG TAB PO SCH (08:16)
[2020-01-28] MEDS: ROSUVASTATIN CALCIUM 20 MG TAB PO SCH (08:16)
[2020-01-28] MEDS: PANTOprazole 40 MG TAB PO SCH (08:17)
[2020-01-28] MEDS: lisinopriL 20 MG TAB PO SCH (08:17)
[2020-01-28] MEDS: GABAPENTIN 300 MG CAP PO SCH ×2 (08:17→21:16)
[2020-01-28] MEDS: INSULIN ASPART 100 UNITS/ML 3 ML PEN SC SCH ×4 (08:19→21:16)
[2020-01-28] MEDS ORDERED: VENLAFAXINE HCL XR 75 MG CAPXR PO SCH (09:00)
[2020-01-28] MEDS ORDERED: ASPIRIN 81 MG CHEW PO SCH (09:00)
[2020-01-28] MEDS ORDERED: INSULIN GLARGINE SOLOSTAR 100 UNITS/ML 3 ML PEN SC SCH (09:00)
--- NOTE | 2020-01-28 09:54 | Consultation Report ---
DATE OF CONSULTATION: 01/28/2020 HEMATOLOGIC CONSULTATION REASON FOR CONSULTATION: A 79-year-old female patient well known to CCP with chronic lymphocytic leukemia. HISTORY OF PRESENT ILLNESS: The patient is morbidly obese 79-year-old female who was admitted to [facility] as a direct admission from Dr. De La Cruz's office because of failure to thrive and frequent falls at home. Apparently, her diabetes has been poorly controlled and thus recommended admission for PT and OT perhaps and look into long-term care thereafter. This patient is well known to me, currently under my care with Cantu stage 0 chronic lymphocytic leukemia. I actually saw the patient in the office back on 11/28/2019 at which time she was having no difficulties and recommended 6-month followup. Her disease is manifested solely by lymphocytosis with no evidence of peripheral lymphadenopathy or splenomegaly. She has never required treatment. Apparently after that visit, she suffered what was believed to be a mini stroke. Unfortunately, I do not have details of that position, encounter or hospitalization thereafter. Unclear why I am being consulted today as review of her most recent counts are very similar to where they have been. She does have a mild component of secondary erythrocytosis as she suffers from obstructive sleep apnea. PAST MEDICAL HISTORY: Significant for hypothyroidism, poorly controlled diabetes mellitus, depression, obstructive sleep apnea, nicotine dependence, failure to thrive, history of CVA. MEDICATIONS: Prior to admission include NovoLog insulin 10 units subQ t.i.d., Lantus SoloSTAR 16 units subQ b.i.d., rosuvastatin 20 mg p.o. daily, hydrocodone/acetaminophen 1 tablet p.o. q. 8 hours, clopidogrel 75 mg p.o. daily, gabapentin 600 mg p.o. b.i.d., insulin aspart 10 units subQ a.c., Effexor 225 mg p.o. daily, omeprazole 40 mg p.o. daily, hydroxyzine 10 mg p.o. at bedtime p.r.n., lorazepam 0.5 mg p.o. t.i.d. p.r.n., lisinopril 20 mg p.o. daily, levothyroxine 75 mcg p.o. daily, aspirin 81 mg p.o. daily, cetirizine 10 mg p.o. daily. ALLERGIES: MULTIPLE ALLERGIES INCLUDING ADHESIVE, AMITRIPTYLINE, ATORVASTATIN, CEPHALEXIN, PIOGLITAZONE, TRAMADOL, CLOPIDOGREL, CODEINE, DOXYCYCLINE, PLAQUENIL, LIRAGLUTIDE, METFORMIN, PHENOL, PROPYLENE GLYCOL, SACCHARIN AND HERPES ZOSTER LIVE VACCINE. SOCIAL HISTORY: She is , lives with her spouse. 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 She does enjoy an occasional beer. Negative for tobacco or illicit substances. FAMILY HISTORY: Father in his 50s from lung cancer. Mother in her 70s from cancer. Niece at age 37 from colorectal cancer. REVIEW OF SYSTEMS: CONSTITUTIONAL: As per HPI, most notably for failure to thrive and frequent falls at home, poorly controlled diabetes mellitus. No fevers, chills or sweats. She is morbidly obese. SKIN: No rashes or lesions. No history of dermatoses. HEENT: She denies headaches, lightheadedness or dizziness. No visual or hearing deficits. No sinus symptoms, sore throat or dysphagia. LYMPH: History of CLL manifested by lymphocytosis. CARDIAC: Negative for angina or palpitations. PULMONARY: She suffers from obstructive sleep apnea. She is not acutely short of breath, dyspneic or orthopneic. No cough or hemoptysis. GASTROINTESTINAL: Negative for abdominal pain, nausea, vomiting, diarrhea or constipation. GENITOURINARY: No hematuria, dysuria, urinary incontinence. PSYCHIATRIC: Positive for anxiety and depression. MUSCULOSKELETAL: No skeletal pain. No focal muscle weakness. NEUROLOGIC: Positive for previous CVA. Negative for migraine headache or seizure disorder by history. HEMATOLOGIC: Positive for lymphocytosis and secondary erythrocytosis. PHYSICAL EXAMINATION: GENERAL: Very pleasant morbidly obese 79-year-old female, in no acute distress. VITAL SIGNS: Temperature 36.7, pulse 80, respiratory rate 18, blood pressure 132/74. SKIN: Warm, dry, noncyanotic without petechia, rash or ecchymosis. HEENT: Head is atraumatic, normocephalic. Eyes: PERRLA, EOMI. Nares are patent without rhinorrhea or discharge. Throat is clear. No buccal lesions or ulcerations. NECK: Bull neck. Supple. HEART: Regular rate and rhythm. LUNGS: Clear to auscultation bilaterally. ABDOMEN: Obese, soft, nontender, nondistended. EXTREMITIES: No clubbing, cyanosis or edema. MUSCULOSKELETAL: Strength and pulses are equal in all 4 quadrants. NEUROLOGICAL: She is awake, alert and oriented x3. LABORATORY DATA: WBC count 13,720, hemoglobin 17.4, hematocrit 50.8%, platelet count 264,000, absolute lymphocyte count 4430. Sodium 137, potassium 4.0, chloride 100, carbon dioxide 27, creatinine 1.74, BUN 24. RADIOGRAPHIC DATA: Chest x-ray done on admission is negative. IMPRESSION: 1. History of cerebrovascular accident. 2. Frequent falls. 3. Failure to thrive. 4. Anxiety/depression. 5. Obstructive sleep apnea. 6. Secondary polycythemia. 7. Poorly controlled type 2 diabetes mellitus. 8. Lumbar spinal stenosis. 9. Chronic lymphocytic leukemia (Cantu stage 0). PLAN: I was happy to visit with the patient at bedside today. She was actually quite surprised to see me. I have been following this lady for quite some time with early stage chronic lymphocytic leukemia, which has not required any form of therapy. Review of her peripheral counts on admission are very similar to where her counts have been for quite some time. She does not require intervention at this time. I see her biannually and her last visit with me was on 11/28/2019. The patient is instructed to maintain her followup appointment as scheduled. Hopefully hospitalization will get her squared away in regard to her poorly controlled diabetes and mobility issues. I have nothing further to add at this point. Thank you very much for allowing me to participate in her care. Please call me if there are any questions or concerns that I may have overlooked.
[2020-01-28] MEDS: LORazepam 0.5 MG TAB PO PRN (13:57)
--- NOTE | 2020-01-28 15:46 | Hospitalist Progress Note ---
Date of Service January 28, 2020 Assessment & Plan (1) Frequent falls: Sharon Ochoa is a 79-year-old female who presents as a direct admission from Dr. De La Cruz's office due to frequent falls at home and failure to thrive. She is very distressed about her recent admission in November for stroke. Her main issue appears to be lack of understanding of her medications, safety at home given frequent falls, questionably taking her medications correctly and unable to receive physical therapy, Occupational Therapy and speech therapy at her house. Falls - Patient reports generalized weakness and difficulty walking after her stroke - Most likely cause is deconditioning, as there doesn't seem to be much residual motor impairment in her limbs - PT/OT consulted - Patient will likely require placement for rehab after d/c--she is open to this Failure to thrive - PT/OT/speech therapy consulted - Likely will need placement after d/c Diabetes mellitus type 2, uncontrolled - HbA1c 12.5 - POC glucose up to 300s--basal-bolus regimen adjusted to below - Basal: Lantus 16 units SC BID - Bolus: Novolog--correction factor at 30 with 1:10 carb ratio Elevated WBC count - Unclear etiology - Lymphocyte count at her baseline regarding CLL - No pneumonia on CXR - No clinical signs/symptoms of infection - Urine incontinence at baseline--no dysuria, UA pending History of CVA - On dual antiplatelet therapy at home: Plavix 75mg PO qAM & ASA 81mg PO qAM - Consider consulting with neurology is dual therapy still indicated - Continue home rosuvastatin 20 mg PO daily Expressive aphasia - Residual from recent stroke - Speech therapy consulted Vertigo - Patient describes episodes of feeling like room is moving with head turning - Possibly cause of fall--more likely deconditioning Urinary incontinence - Bladder scan every shift - Call provider if > 400ml to assess for urinary retention given lumbar spinal stenosis diagnosis - per PCP note pt is planning to see urogynecologist as outpatient Anxiety - Venlafaxine last prescribed in September--no clear reason to have stopped treatment since then - Possibly treated in hospital during November hospitalization - Mid-afternoon today patient had some back/chest pain--EKG normal, no concern for ACS--resolved with discussion of her post-discharge concerns and dose of Ativan 0.5mg PO - Restart 75 mg PO daily Depression - Venlafaxine as above for anxiety Hypothyroidism - TSH normal - Continue home levothyroxine 75 mcg PO daily Hypertension - Continue home lisinopril 20 mg PO daily Sleep apnea - BiPAP 19/15 required to eliminate nocturnal hypoxia however patient was noncompliant - Previous outpatient sleep medicine note: possibly reduce settings to encourage compliance - BiPAP 15/10 at bedtime Polycythemia - Possibly secondary to smoking and nocturnal hypoxia - Hematology consulted given recent CVA - Follow hematology recommendation GERD - Hold home omeprazole - Pantoprazole 40mg PO daily DVT prophylaxis: None FENGI: Carb consistent/DM2 & Heart healthy Dispo: Med/surg Tele Code: Full Code (2) Failure to thrive: (3) Depression: (4) Anxiety: (5) Hypothyroidism: (6) Hypertension: (7) Sleep apnea: (8) Polycythemia: (9) Nicotine dependence: (10) Gastroesophageal reflux disease: (11) Diabetes mellitus type 2, uncontrolled: (12) CLL (chronic lymphocytic leukemia): Admission and Anticipated Discharge Date Admission Date: January 27, 2020 Supervising Physician Co-Signing Physician Notes I personally examined the patient and verified all rios points of history and exam, discussed case, and agree with decision making with Dr Bacon. feeling weak still - more than amenable to go to some form of rehab. tearful about how weak she has gotten. no acute complaints but does note that for about a year she has gotten a spinning/dizzy sensation that occurs when she looks to the left - resolves reasonably quickly but is severe enough that it led to her stopping driving. vitals noted nad heent nc at mmm breathing unlabored no accessory muscles. no new focal neuro deficits (seen by me during cerebrovascular admission as well) weakness/failure to thrive -multifactorial -no acute features - just deteriorated to where she's not safe at home -PT/OT eval and treat - anticipate rehab or SNF positional vertigo -may be too long-standing and entrenched, but hopefully pt will benefit from vestibular retraining w PT/OT as well Subjective Patient seen at bedside this morning. Laying comfortably in bed. She reports that after her recent stroke she has not felt well. She has been frustrated that she's been having trouble with her speech and thought process. Additionally feels generalized weakness and that walking is difficult. Also complaints of incontinence and mentions that for over a year she's had a sensation that room is spinning when turning her head toward her right side. No further complaints. Denies fever, chills, CP, palpitations, SOB, cough, nausea, vomiting, diarrhea, abdominal pain. Review of Systems Constitutional: + weakness; no fever, no chills, no sweats and no fatigue Respiratory: no cough, no chest congestion and no dyspnea Cardiovascular: no chest pain, no palpitations, no syncope and no edema Gastrointestinal: no abdominal pain, no nausea, no vomiting, no constipation and no diarrhea/loose stools Genitourinary: + urinary incontinence Neurologic: + generalized weakness and + abnormal speech Physical Exam Constitutional: WD/WN, vitals as above + obese; no acute distress Respiratory: normal respiratory effort, lungs clear to auscultation Auscultation: no crackles, no rales, no rhonchi and no wheezes Cardiovascular: RRR, no murmur, no edema Heart Sounds: normal S1 and normal S2; no gallop, no murmur and no cardiac rub Gastrointestinal (Abdomen): normal bowel sounds, soft, nontender, no hepatosplenomegaly Skin: no rashes, warm and dry Neurologic: Speech / Cognition: + abnormal speech (residual dysarthria after stroke) Psychiatric: Orientation: alert and oriented x 3 tearful affect Results & Data Results & [facility] ([facility]) Vital Signs (Past 12 Hours) Vital Signs Temp Pulse Pulse Resp BP Pulse Ox 01/28/20 15:12 84 01/28/20 14:41 37.1 C 84 18 136/79 99 01/28/20 11:33 37.1 C 78 18 102/64 95 01/28/20 07:49 36.7 C 80 18 122/69 95 01/28/20 07:14 80 01/28/20 04:00 36.7 C 83 18 132/74 96 Resident Activity Tracking Resident Involvement: Resident Care Provided Care Provided: Adult Hospital Medicine (1) Sleep apnea Sleep apnea type: unspecified type Qualified Code(s): G47.30 - Sleep apnea, unspecified (2) Hypothyroidism Hypothyroidism type: unspecified Qualified Code(s): E03.9 - Hypothyroidism, unspecified (3) Diabetes mellitus type 2, uncontrolled Coma presence: without coma (4) Gastroesophageal reflux disease Esophagitis presence: esophagitis presence not specified Qualified Code(s): K21.9 - Gastro-esophageal reflux disease without esophagitis (5) Hypertension Hypertension type: essential hypertension Qualified Code(s): I10 - Essential (primary) hypertension
--- NOTE | 2020-01-28 17:34 | Billing Data ---
Date of Service January 28, 2020 Coding Level of Care Code 10959 Subseq Obs Care Lvl 3
[2020-01-28] MEDS: INSULIN GLARGINE SOLOSTAR 100 UNITS/ML 3 ML PEN SC SCH (21:14)
[2020-01-29] MEDS: LEVOTHYROXINE SODIUM 75 MCG TABLET PO SCH (05:38)
[2020-01-29 07:34] LABS: BUN Creatinine Ratio 13.7 (10-20); Calcium 8.5 mg/dl (8.5-10.1); Creatinine Clr Calc Pharmacy 37.5 ml/min; Est GFR (African American) 50.3; Est GFR (Non-African American) 43.4
--- NOTE | 2020-01-29 08:06 | Hospitalist Progress Note ---
Date of Service January 29, 2020 Assessment & Plan (1) Frequent falls: Sharon Ochoa is a 79-year-old female who presented as a direct admission from Dr. De La Cruz's office due to frequent falls at home and failure to thrive. She was very distressed about her recent admission in November for stroke. Her main issue appeared to be lack of understanding of her medications, safety at home given frequent falls, questionably taking her medications correctly and unable to receive physical therapy, occupational Therapy and speech therapy at her house. Falls - Patient reports generalized weakness and difficulty walking after her stroke - Most likely cause is deconditioning, as there doesn't seem to be much residual motor impairment in her limbs - PT/OT: patient would benefit from inpt rehab upon d/c - Patient will require placement for rehab after d/c--she is open to this - Case management: [facility] able to accept pt today Failure to thrive - PT/OT/speech therapy consulted - Will need placement after d/c Diabetes mellitus type 2, uncontrolled - HbA1c 12.5 - POC glucose up to 300s--basal-bolus regimen adjusted to below - Basal: Lantus 16 units SC BID - Bolus: Novolog--correction factor at 30 with 1:10 carb ratio Elevated WBC count - Unclear etiology - Lymphocyte count at her baseline regarding CLL - No pneumonia on CXR - No clinical signs/symptoms of infection - Urine incontinence at baseline--no dysuria History of CVA - On dual antiplatelet therapy at home: Plavix 75mg PO qAM & ASA 81mg PO qAM - Consider consulting with neurology is dual therapy still indicated - Continue home rosuvastatin 20 mg PO daily Expressive aphasia - Residual from recent stroke - Speech therapy: patient would benefit from oupt or home health therapy Vertigo - Patient describes episodes of feeling like room is moving with head turning - Possibly cause of fall--more likely deconditioning Urinary incontinence - Bladder scan every shift - Call provider if > 400ml to assess for urinary retention given lumbar spinal stenosis diagnosis - per PCP note pt is planning to see urogynecologist as outpatient Anxiety - Venlafaxine last prescribed in September--no clear reason to have stopped treatment since then - Possibly treated in hospital during November hospitalization - Mid-afternoon today patient had some back/chest pain--EKG normal, no concern for ACS--resolved with discussion of her post-discharge concerns and dose of Ativan 0.5mg PO - Restart 75 mg PO daily Depression - Venlafaxine as above for anxiety Hypothyroidism - TSH normal - Continue home levothyroxine 75 mcg PO daily Hypertension - Continue home lisinopril 20 mg PO daily Sleep apnea - BiPAP / required to eliminate nocturnal hypoxia however patient was noncompliant - Previous outpatient sleep medicine note: possibly reduce settings to encourage compliance - BiPAP 15/10 at bedtime Polycythemia - Possibly secondary to smoking and nocturnal hypoxia - Hematology consulted given recent CVA - Hematology: does not require intervention at this time GERD - Hold home omeprazole - Pantoprazole 40mg PO daily FENGI: Carb consistent/DM2 & Heart healthy Dispo: Inpt rehab Code: Full Code (2) Failure to thrive: (3) Depression: (4) Anxiety: (5) Hypothyroidism: (6) Hypertension: (7) Sleep apnea: (8) Polycythemia: (9) Nicotine dependence: (10) Gastroesophageal reflux disease: (11) Diabetes mellitus type 2, uncontrolled: (12) CLL (chronic lymphocytic leukemia): Admission and Anticipated Discharge Date Admission Date: January 27, 2020 Subjective Mrs. Ochoa is doing better today. Seen walking in the lang with PT. She says she continues to be very tired but feels like she's getting better. Very eager to continue with PT after d/c and wants to get help with what appears to be BPPV. No other concerns. Denies fever, chills, CP, palpitations, SOB, cough, nausea, vomiting, diarrhea, constipation. Review of Systems Constitutional: + weakness; no fever, no chills, no sweats and no fatigue Respiratory: no cough, no chest congestion and no dyspnea Cardiovascular: no chest pain, no palpitations and no edema Gastrointestinal: no abdominal pain, no nausea, no vomiting, no constipation and no diarrhea/loose stools Genitourinary: + urinary incontinence Neurologic: + generalized weakness and + abnormal speech Physical Exam Constitutional: WD/WN, vitals as above + obese; no acute distress Respiratory: normal respiratory effort, lungs clear to auscultation Auscultation: no crackles, no rales, no rhonchi and no wheezes Cardiovascular: RRR, no murmur, no edema Heart Sounds: normal S1 and normal S2; no gallop, no murmur and no cardiac rub Gastrointestinal (Abdomen): normal bowel sounds, soft, nontender, no hepatosplenomegaly Skin: no rashes, warm and dry Neurologic: Speech / Cognition: + abnormal speech (exressive aphasa secondary to stroke) Psychiatric: Orientation: alert and oriented x 3 Results & Data Results & Data ([facility]) Vital Signs (Past 12 Hours) Vital Signs Temp Pulse Pulse Resp BP Pulse Ox 01/29/20 07:52 36.5 C 79 18 168/79 H 97 01/28/20 23:00 36.5 C 96 H 19 170/72 H 93 01/28/20 22:35 82 18 97 (1) Sleep apnea Sleep apnea type: unspecified type Qualified Code(s): G47.30 - Sleep apnea, unspecified (2) Hypothyroidism Hypothyroidism type: unspecified Qualified Code(s): E03.9 - Hypothyroidism, unspecified (3) Diabetes mellitus type 2, uncontrolled Coma presence: without coma (4) Gastroesophageal reflux disease Esophagitis presence: esophagitis presence not specified Qualified Code(s): K21.9 - Gastro-esophageal reflux disease without esophagitis (5) Hypertension Hypertension type: essential hypertension Qualified Code(s): I10 - Essential (primary) hypertension
[2020-01-29] MEDS: ROSUVASTATIN CALCIUM 20 MG TAB PO SCH (08:22)
[2020-01-29] MEDS: ASPIRIN 81 MG ECTAB PO SCH (08:22)
[2020-01-29] MEDS: VENLAFAXINE HCL XR 75 MG CAPXR PO SCH (08:22)
[2020-01-29] MEDS: CLOPIDOGREL BISULFATE 75 MG TAB PO SCH (08:22)
[2020-01-29] MEDS: lisinopriL 20 MG TAB PO SCH (08:22)
[2020-01-29] MEDS: INSULIN GLARGINE SOLOSTAR 100 UNITS/ML 3 ML PEN SC SCH ×2 (08:23→20:59)
[2020-01-29] MEDS: PANTOprazole 40 MG TAB PO SCH (08:23)
[2020-01-29] MEDS: CETIRIZINE HCL 10 MG TABLET PO SCH (08:23)
[2020-01-29] MEDS: GABAPENTIN 300 MG CAP PO SCH ×2 (08:23→20:59)
[2020-01-29] MEDS: INSULIN ASPART 100 UNITS/ML 3 ML PEN SC SCH ×4 (08:25→20:58)
--- NOTE | 2020-01-29 13:28 | Discharge Summary ---
Date of Service January 30, 2020 Admission HPI Per Admitting Provider Sharon Ochoa is a 79-year-old female who presents as a direct admission from Dr. De La Cruz's office due to frequent falls at home and failure to thrive. Discussion with Dr. De La Cruz earlier today he reports concern that she is not taking her medications properly, unclear diagnosis for frequent falls (notably had recent stroke), unable to get PT/OT assessments at her house and unable to get a direct admission [facility]. Mrs. Ochoa appears visibly upset today. She is very distressed about her recent admission in November for stroke. She feels no work-up was done despite an extended stay with usual routine stroke work-up. She reports no one discussed her diet for her diabetes despite extensive documentation of this with her discharge summary. She is very concerned that she was taken off her usual Humulin 70/30 and switch to a basal bolus regimen which she feels has made her diabetes much harder to control despite her HbA1c being very poor when she was admitted for stroke in November. She is unsure about receiving any physical therapy, occupational therapy or speech therapy after discharge. I understand from Dr. De La Cruz that no home health agencies were available in the area where she lives. We discussed her medications and she is unsure whether she is taking the venlafaxine which has not been filled since September. She does note taking her insulin as prescribed and reports blood sugar glucose levels are usually in the 400-500s. She has a number of longstanding issues which we discussed including urinary incontinence, back pain, lower extremity coordination, frequent falls (possibly more frequent since her stroke), diabetes with poor glucose control, generalized fatigue, anxiety, depression - however from our discussion and reading previous notes it does not appear she has any acute problems since stroke admission in November. Her main issue appears to be lack of understanding of her medications, safety at home given frequent falls, questionably taking her medications correctly and unable to receive physical therapy, Occupational Therapy and speech therapy at her house. Admission Exam Per Admitting Provider Constitutional: well developed; + not well nourished and no acute distress Eyes: PERRL, conjunctivae normal, anicteric sclerae ENMT: external ear and nose normal, oropharynx normal Neck: trachea midline, no thyromegaly Respiratory: normal respiratory effort, lungs clear to auscultation Auscultation: no crackles and no wheezes Cardiovascular: Rate/Rhythm: regular rate and regular rhythm Heart Sounds: no murmur Vessels: no JVD Extremities: normal capillary refill and + pedal edema (1+ to mid shins equal b/l); no calf tenderness Gastrointestinal (Abdomen): normal bowel sounds, soft, nontender, no hepatosplenomegaly Musculoskeletal: no cyanosis or clubbing, extremities motor strength 5/5 Skin: no rashes, warm and dry Neurologic: moves all extremities and awake; no focal motor deficits (No lateralizing weakness, no foot drop) and not confused Speech / Cognition: + expressive aphasia (Moderate) Motor/Sensory:no tremor and no pronator drift Cranial Nerves: PERRL, EOM intact bilaterally, normal facial strength, tongue midline, able to rotate head bilaterally, able to elevate shoulders bilaterally and no nystagmus Psychiatric: Orientation: alert and oriented x 3 Affect: + tearful affect Mood: + anxious mood Genitourinary: no CVA tenderness Lymphatic: no cervical or axillary lymphadenopathy Principal Diagnosis Frequent falls, failure to thrive Discharge Exam Constitutional WD/WN, vitals as above + obese; no acute distress Respiratory normal respiratory effort, lungs clear to auscultation Auscultation: no crackles, no rales, no rhonchi and no wheezes Cardiovascular RRR, no murmur, no edema Heart Sounds: normal S1 and normal S2; no gallop, no murmur and no cardiac rub Gastrointestinal (Abdomen) normal bowel sounds, soft, nontender, no hepatosplenomegaly Skin no rashes, warm and dry Neurologic Speech / Cognition: + abnormal speech (exressive aphasa secondary to stroke) Psychiatric Orientation: alert and oriented x 3 Discharge Data Allergies Allergy/AdvReac Type Severity Reaction Status Date / Time adhesive Allergy Intermediate BLISTERS Verified 12/16/19 15:25 amitriptyline AdvReac Intermediate HALLUCINATI Verified 01/27/20 14:51 ONS atorvastatin AdvReac Intermediate JOINT PAIN Verified 12/16/19 15:25 cephalexin AdvReac Intermediate N/V Verified 12/16/19 15:25 pioglitazone AdvReac Intermediate SEVERE Verified 12/16/19 15:25 FATIGUE tramadol AdvReac Intermediate N/V Verified 12/16/19 15:25 clopidogrel AdvReac Mild GI UPSET Verified 01/27/20 14:51 codeine AdvReac Mild NAUSEA AND Verified 12/16/19 15:25 VOMITING doxycycline AdvReac Mild GI SYMPTOMS Verified 01/27/20 14:51 hydroxychloroquine AdvReac Mild Diarrhea Verified 01/27/20 14:51 [From Plaquenil] liraglutide AdvReac Mild GI UPSET Verified 01/27/20 14:51 metformin AdvReac Mild NAUSEA AND Verified 12/16/19 15:25 VOMITING phenol AdvReac Mild GI UPSET Verified 01/27/20 14:51 propylene glycol AdvReac Mild GI UPSET Verified 01/27/20 14:51 saccharin AdvReac Mild diarrhea Verified 01/27/20 14:51 zoster vaccine live AdvReac Unknown Unknown Verified 01/27/20 14:51 [From Zostavax (PF)] Consultations 01/28/20 10:48 Consult Case Management - Discharge Planning Routine 01/29/20 09:04 Consult Case Management - Discharge Planning Routine Diabetes Follow up Diabetes Follow-up Needed for HgbA1c >9% Hospital Course (1) Frequent falls: Sharon Ochoa is a 79-year-old female who presented as a direct admission from Dr. De La Cruz's office due to frequent falls at home and failure to thrive. She was very distressed about her recent admission in November for stroke. Her main issue appeared to be lack of understanding of her medications, safety at home given frequent falls, questionably taking her medications correctly and unable to receive physical therapy, occupational Therapy and speech therapy at her house. Falls - Patient reports generalized weakness and difficulty walking after her stroke - Most likely cause is deconditioning, as there doesn't seem to be much residual motor impairment in her limbs - PT/OT: patient would benefit from inpt rehab upon d/c - Patient will require placement for rehab after d/c--she is open to this - Case management: [facility] able to accept pt today Failure to thrive - PT/OT/speech therapy consulted as above and below - Placement after d/c Diabetes mellitus type 2, uncontrolled - HbA1c 12.5 - POC glucose up to 300s--basal-bolus regimen adjusted to below - Basal: Lantus 20 units SC BID - Bolus: Novolog--correction factor at 30 with 1:6 carb ratio Elevated WBC count - Unclear etiology - Lymphocyte count at her baseline regarding CLL - No pneumonia on CXR - No clinical signs/symptoms of infection - Urine incontinence at baseline--no dysuria - Hematology: does not require intervention at this time - Follow up with hematology as outpatient as previously scheduled History of CVA - On dual antiplatelet therapy at home: Plavix 75mg PO qAM & ASA 81mg PO qAM - Continued home rosuvastatin 20 mg PO daily Expressive aphasia - Residual from recent stroke - Speech therapy: patient would benefit from oupt or home health therapy Vertigo - Patient describes episodes of feeling like room is moving with head turning - Possibly cause of fall--more likely deconditioning - Would benefit from balance therapy at inpatient rehab facility Urinary incontinence - Bladder scan every shift - Call provider if > 400ml to assess for urinary retention given lumbar spinal stenosis diagnosis - per PCP note pt is planning to see urogynecologist as outpatient Anxiety - Venlafaxine last prescribed in September--no clear reason to have stopped treatment since then - Possibly treated in hospital during November hospitalization - Two days ago, patient had some back/chest pain--EKG normal, no concern for ACS--resolved w/ discussion of her post-discharge concerns and dose of Ativan 0.5mg PO - Restart 75 mg PO daily Depression - Venlafaxine as above for anxiety Hypothyroidism - TSH normal - Continued home levothyroxine 75 mcg PO daily Hypertension - Continued home lisinopril 20 mg PO daily Sleep apnea - BiPAP required to eliminate nocturnal hypoxia however patient was noncompliant - Previous outpatient sleep medicine note: possibly reduce settings to encourage compliance - BiPAP 15/10 at bedtime Polycythemia - Possibly secondary to smoking and nocturnal hypoxia - Hematology consulted given recent CVA - Hematology: does not require intervention at this time GERD - Hold home omeprazole - Pantoprazole 40mg PO daily FENGI: Carb consistent/DM2 & Heart healthy Dispo: Inpt rehab Code: Full Code (2) Failure to thrive: (3) Depression: (4) Anxiety: (5) Hypothyroidism: (6) Hypertension: (7) Sleep apnea: (8) Polycythemia: (9) Nicotine dependence: (10) Gastroesophageal reflux disease: (11) Diabetes mellitus type 2, uncontrolled: (12) CLL (chronic lymphocytic leukemia): Total Time Total Time Spent Total Time Spent (In Minutes): see Attending attestation Discharge Plan Discharge Items Patient Disposition: Transfer Inpatient Rehab Fac Reason For Visit: FREQUENT FALLS, FAILURE TO THRIVE AT HOME Discharge Diagnosis: Frequent falls, failure to thrive Activity: Per Instructions section Non-emergency contact: Primary Care Provider Call non-emergency contact if: your symptoms worsen Follow-up/Referrals: José Miguel De La Cruz MD [Primary Care Provider] - 02/03/20 12:00 pm (You have an appt with your PCP on 02/02 @ 1200. ) Diet: Carb Consistent or DM2 and Heart Healthy Addtl Attending Provider Instructions: [facility] came into [facility] for recurrent falls and difficulties with your usual activities at home. This is most likely due to deconditioning in response to reduced physical activity after your recent stroke. During your time here you were seen by physical therapy, occupational therapy, and speech therapy. You will continue with these therapies at an inpatient rehabilitation facility, where you may be able to build back your strength in order to return home and to your usual level of activity. Please follow up with your primary care provider at you earliest convenience for continued management and treatment of your other conditions. Pending Studies at Discharge: No Stand-Alone Forms: [facility] Skilled Items Patient informed of condition?: Yes DNR: No Discharge Level of Care: Acute rehab Communicable Disease: No Discharge Prognosis: Stable Lines: None Urinary Catheter: No Medications and DC Order Prescriptions: Continued Tirosint 75 mcg capsule 75 mcg PO DAILY Qty: 30 RF: 1 lisinopril 20 mg tablet 20 mg PO DAILY Qty: 90 RF: 3 hydroxyzine HCl 10 mg tablet 10 mg PO HS PRN (Reason: itching) Qty: 90 RF: 1 gabapentin 300 mg capsule 600 mg PO BID Qty: 360 RF: 1 (DME) pen needle, diabetic [BD Ultra-Fine Micro Pen Needle] 32 gauge x 1/4" needle See Dose Instructions .ROUTE .MEDSUPPLY Qty: 100 RF: 3 insulin aspart U-100 [Novolog Flexpen U-100 Insulin] 100 unit/mL (3 mL) insulin pen 10 unit subcut TID Qty: 15 RF: 5 Lantus Solostar U-100 Insulin 100 unit/mL (3 mL) insulin pen 16 unit subcut BID Qty: 15 RF: 5 cetirizine 10 mg capsule 10 mg PO DAILY Qty: 30 RF: 3 (DME) OneTouch Ultra Blue Test Strip Strip See Dose Instructions .ROUTE .MEDSUPPLY Qty: 10 RF: 0 (DME) lancets [OneTouch Delica Lancets] 33 gauge misc See Dose Instructions .ROUTE .MEDSUPPLY Qty: 100 RF: 0 omeprazole 40 mg capsule,delayed release(DR/EC) 40 mg PO DAILY RF: 0 venlafaxine 75 mg capsule,extended release 24hr 225 mg PO DAILY RF: 0 clopidogrel 75 mg tablet 75 mg PO QAM Qty: 90 RF: 1 rosuvastatin [Crestor] 20 mg tablet 20 mg PO QAM Qty: 90 RF: 1 aspirin 81 mg tablet,chewable 81 mg PO DAILY RF: 0 acetaminophen [Mapap (acetaminophen)] 325 mg Tablet 650 mg PO Q4H PRN (Reason: pain) Qty: 30 RF: 0 insulin aspart U-100 100 unit/mL (3 mL) insulin pen 10 units SQ AC Qty: 15 RF: 0 PreserVision Lutein 226 mg-200 unit -5 mg-0.8 mg Capsule 1 cap PO DAILY RF: 0 hydrocodone-acetaminophen 5-325 mg tablet 1 tab PO Q8H PRN (Reason: pain) Qty: 5 RF: 0 lorazepam 0.5 mg tablet 0.5 mg PO TID PRN (Reason: Anxiety or muscle spasm) Qty: 9 RF: 0 Discharge Orders: Discharge Order (Routine); Ordered 01/30/20 [facility] Data Admit Date/Time: 01/27/20 12:41 Attending Provider: Andrey Mendoza Admit Provider: Harjinder Dove Primary Care Provider: José Miguel De La Cruz Other Providers: Harjinder Dove ; [facility] [place] [place] Other Interventions: Discharge Summary Assessment (RN) Last Done: 01/30/20 11:40 Supervising Physician Co-Signing Physician Notes I personally examined the patient and verified all rios points of history and exam, discussed case, and agree with decision making with Dr Bacon. feels tired all the time - notes she had PA but then wasn't wearing CPAP enough so insurance stopped covering it vitals noted nad heent nc at mmm breathing unlabored no accessory muscles good effort skin no rashes no pallor or icterus, neuro ongoing slow speech no other acute deficits weakness/failure to thrive - from deconditioning overall - for PT/OT at SNF vertigo - positional when looking to R - hopefully vestibular retraining w PT will help. had extensive brain imaging w CVA w/u- no tumors/etc PA - untreated. will need CPAP. safe for SNF while this is pending given that she has not been wearing at home for many months. discussed how untreated PA would heavily contribute to her fatigue, emphasized need for using this stable for SNF - rehab emphasis - otherwise as above (clarification - note originally created on 01/28 - but discharge delayed due to lack of insurance approval until today - so date of service for discharge 01/29) Resident Activity Tracking Resident Involvement: Resident Care Provided Care Provided: Adult Hospital Medicine
--- NOTE | 2020-01-29 13:37 | Cardiology Progress Note ---
Date of Service January 29, 2020 Assessment & Plan (1) History of CVA (cerebrovascular accident): I performed a device interrogation on the implanted loop recorder. The recorded did log 1 episode as atrial fibrillation lasting 24 minutes, but evaluation of the intracardiac electrogram suggests that this is more likely a sinus rhythm with occasional atrial ectopy. I do not believe the patient had a true episode of atrial fibrillation. No other arrhythmias. No symptoms reported. This report was placed in the patient's chart. Admission and Anticipated Discharge Date Admission Date: January 27, 2020 Subjective I was asked to evaluate the patient's implanted loop recorder for evidence of arrhythmia. Results & Data ([facility]) Vital Signs (Past 12 Hours) Vital Signs Temp Pulse Resp BP Pulse Ox 01/29/20 07:52 36.5 C 79 18 168/79 H 97 PG Care Time/CCT Total # of Minutes Spent Total Time Spent with Patient: Total time spent is greater than 50% in coordina tion of care (as documented) at patient's floor/unit and/or counseling patient: Coding Level of Care Code None Diagnoses History of CVA (cerebrovascular accident) Z86.73 CPT Codes Implant loop record interrogation (in person) - [id number] ([id number]) 26 - PROFESSIONAL COMPONENT
--- NOTE | 2020-01-29 18:44 | Billing Data ---
Date of Service January 29, 2020 Coding Level of Care Code 13810 OBS Care - Discharge
--- NOTE | 2020-01-29 18:47 | Hospitalist Progress Note ---
Date of Service January 29, 2020 Assessment & Plan (1) Frequent falls: Sharon Ochoa is a 79-year-old female who presented as a direct admission from Dr. De La Cruz's office due to frequent falls at home and failure to thrive. She was very distressed about her recent admission in November for stroke. Her main issue appeared to be lack of understanding of her medications, safety at home given frequent falls, questionably taking her medications correctly and unable to receive physical therapy, occupational Therapy and speech therapy at her house. Falls - Patient reports generalized weakness and difficulty walking after her stroke - Most likely cause is deconditioning, as there doesn't seem to be much residual motor impairment in her limbs - PT/OT: patient would benefit from inpt rehab upon d/c - Patient will require placement for rehab after d/c--she is open to this - Case management: [facility] able to accept pt tomorrow Failure to thrive - PT/OT/speech therapy consulted as above and below - Placement after d/c Diabetes mellitus type 2, uncontrolled - HbA1c 12.5 - POC glucose up to 300s--basal-bolus regimen adjusted to below - Basal: Lantus 20 units SC BID - Bolus: Novolog--correction factor at 30 with 1:6 carb ratio Elevated WBC count - Unclear etiology - Lymphocyte count at her baseline regarding CLL - No pneumonia on CXR - No clinical signs/symptoms of infection - Urine incontinence at baseline--no dysuria - Hematology: does not require intervention at this time - Follow up with hematology as outpatient as previously scheduled History of CVA - On dual antiplatelet therapy at home: Plavix 75mg PO qAM & ASA 81mg PO qAM - Continue home rosuvastatin 20 mg PO daily Expressive aphasia - Residual from recent stroke - Speech therapy: patient would benefit from oupt or home health therapy Vertigo - Patient describes episodes of feeling like room is moving with head turning - Possibly cause of fall--more likely deconditioning - Would benefit from balance therapy at inpatient rehab facility Urinary incontinence - Bladder scan every shift - Call provider if > 400ml to assess for urinary retention given lumbar spinal stenosis diagnosis - per PCP note pt is planning to see urogynecologist as outpatient Anxiety - Venlafaxine last prescribed in September--no clear reason to have stopped treatment since then - Possibly treated in hospital during November hospitalization - Mid-afternoon today patient had some back/chest pain--EKG normal, no concern for ACS--resolved with discussion of her post-discharge concerns and dose of Ativan 0.5mg PO - Restart 75 mg PO daily Depression - Venlafaxine as above for anxiety Hypothyroidism - TSH normal - Continue home levothyroxine 75 mcg PO daily Hypertension - Continue home lisinopril 20 mg PO daily Sleep apnea - BiPAP 19/15 required to eliminate nocturnal hypoxia however patient was noncompliant - Previous outpatient sleep medicine note: possibly reduce settings to encourage compliance - BiPAP 15/10 at bedtime Polycythemia - Possibly secondary to smoking and nocturnal hypoxia - Hematology consulted given recent CVA - Hematology: does not require intervention at this time GERD - Hold home omeprazole - Pantoprazole 40mg PO daily DVT prophylaxis: SCD FENGI: Carb consistent/DM2 & Heart healthy Dispo: Med/surg Code: Full Code (2) Failure to thrive: (3) Depression: (4) Anxiety: (5) Hypothyroidism: (6) Hypertension: (7) Sleep apnea: (8) Polycythemia: (9) Nicotine dependence: (10) Gastroesophageal reflux disease: (11) Diabetes mellitus type 2, uncontrolled: (12) CLL (chronic lymphocytic leukemia): Admission and Anticipated Discharge Date Admission Date: January 27, 2020 Subjective Patient was seen today sitting at her bedside chair. She's feeling about the same as yesterday but feels ready to continue physical therapy. She is aware she will head to inpt rehab facility and is on board with this plan. Denies new symptoms. No fever, chills, CP, palpitations, SOB, cough, nausea, vomiting, CP, palpitations, abdominal pain, diarrhea. Review of Systems Constitutional: no fever, no chills, no sweats and no fatigue Respiratory: no cough, no chest congestion and no dyspnea Cardiovascular: no chest pain, no palpitations and no edema Gastrointestinal: no abdominal pain, no nausea, no vomiting, no constipation and no diarrhea/loose stools Genitourinary: + urinary incontinence; no dysuria and no difficulty urinating Physical Exam Constitutional: WD/WN, vitals as above no acute distress Respiratory: normal respiratory effort, lungs clear to auscultation Auscultation: no crackles, no rales and no rhonchi Cardiovascular: RRR, no murmur, no edema Heart Sounds: normal S1 and normal S2; no gallop, no murmur and no cardiac rub Gastrointestinal (Abdomen): normal bowel sounds, soft, nontender, no hepatosplenomegaly Skin: Psychiatric: A+Ox3, euthymic affect Insight: good insight Results & Data Results & Data ([facility]) Vital Signs (Past 12 Hours) Vital Signs Temp Pulse Resp BP Pulse Ox 01/29/20 16:10 36.4 C L 80 20 149/81 H 95 01/29/20 07:52 36.5 C 79 18 168/79 H 97 Resident Activity Tracking Resident Involvement: Resident Care Provided Care Provided: Adult Hospital Medicine (1) Hypothyroidism Hypothyroidism type: unspecified Qualified Code(s): E03.9 - Hypothyroidism, unspecified (2) Hypertension Hypertension type: essential hypertension Qualified Code(s): I10 - Essential (primary) hypertension (3) Sleep apnea Sleep apnea type: unspecified type Qualified Code(s): G47.30 - Sleep apnea, unspecified (4) Gastroesophageal reflux disease Esophagitis presence: esophagitis presence not specified Qualified Code(s): K21.9 - Gastro-esophageal reflux disease without esophagitis (5) Diabetes mellitus type 2, uncontrolled Coma presence: without coma
[2020-01-30] MEDS: LEVOTHYROXINE SODIUM 75 MCG TABLET PO SCH (05:55)
--- NOTE | 2020-01-30 06:10 | Electrocardiogram Report ---
Test Reason : Blood Pressure : / mmHG Vent. Rate : 077 BPM Atrial Rate : 077 BPM P-R Int : 186 ms QRS Dur : 072 ms QT Int : 416 ms P-R-T Axes : 091 025 069 degrees QTc Int : 470 ms Sinus rhythm with Premature atrial complexes Nonspecific T wave abnormality When compared with ECG of 27-JAN-2020 15:11, Criteria for Inferior infarct are no longer Present Confirmed by Mohit Avilez ([id number]) on 01/30/2020 6:10:01 AM Referred By: José Miguel De La Cruz Confirmed By:Mohit Avilez
[2020-01-30 07:55] LABS: BUN Creatinine Ratio 12.8 (10-20); Calcium 9.6 mg/dl (8.5-10.1); Creatinine Clr Calc Pharmacy 29.4 ml/min; Est GFR (African American) 37.4; Est GFR (Non-African American) 32.3; Potassium 4.6 mmol/L (3.5-5.1)
[2020-01-30] MEDS: ASPIRIN 81 MG ECTAB PO SCH (08:53)
[2020-01-30] MEDS: CLOPIDOGREL BISULFATE 75 MG TAB PO SCH (08:53)
[2020-01-30] MEDS: GABAPENTIN 300 MG CAP PO SCH (08:53)
[2020-01-30] MEDS: lisinopriL 20 MG TAB PO SCH (08:53)
[2020-01-30] MEDS: ROSUVASTATIN CALCIUM 20 MG TAB PO SCH (08:53)
[2020-01-30] MEDS: INSULIN GLARGINE SOLOSTAR 100 UNITS/ML 3 ML PEN SC SCH (08:53)
[2020-01-30] MEDS: VENLAFAXINE HCL XR 75 MG CAPXR PO SCH (08:53)
[2020-01-30] MEDS: INSULIN ASPART 100 UNITS/ML 3 ML PEN SC SCH ×2 (08:54→12:33)
[2020-01-30] MEDS: PANTOprazole 40 MG TAB PO SCH (08:57)
[2020-01-30] MEDS: CETIRIZINE HCL 10 MG TABLET PO SCH (09:01)
[2020-01-30] MEDS: LORazepam 0.5 MG TAB PO PRN (10:46)
--- NOTE | 2020-01-30 18:52 | Billing Data ---
Date of Service January 30, 2020 Coding Level of Care Code D/C Day Management <30 mins Comment disregard 01/28 discharge code
--- NOTE | 2020-01-30 18:53 | Billing Data ---
Date of Service January 29, 2020 Coding Level of Care Code 07116 Subseq Obs Care Lvl 3
== END 2020-01-30 13:38 ==
LOC: 2N → SUATTDRO 12:41

== ENCOUNTER 2021-01-19 12:15 | Inpatient (IN) ==
--- NOTE | 2021-01-19 12:57 | Emergency Department Note ---
Impression & Plan Brain TIA, Weakness of right arm, Slurred speech ED Provider Note NAME: TENZIN PRICE AGE: 80 SEX: F : 1940 ARRIVES VIA: Ambulance INFORMANT: Patient ED PROVIDER(S): Andrey Leon DO CHIEF COMPLAINT: Slurred speech, right arm weakness HPI: Patient is an 80-year-old female with a past medical history of A. fib, on Coumadin, CLL, breast cancer receiving radiation and previous strokes who presents the ER for symptoms that started yesterday around 4 PM. She first noticed some right upper extremity weakness and was unable to use her hands. At that time she started having slurred speech. notes that since the stroke previously she has had some off-and-on slurred speech but this was significantly worsened. Patient denies any headache or change in vision. No chest pain or shortness of breath. No nausea vomiting or diarrhea. No other ex acerbating or remitting factors. ROS: See above HPI for pertinent positives & negatives. A total of 10 systems reviewed and were otherwise negative. PAST MEDICAL HISTORY:See Below PAST SURGICAL HISTORY:See Below FAMILY HISTORY:See Below SOCIAL HISTORY:See Below HOME MEDICATIONS:See Below ALLERGIES:See Below VITALS:See Below PHYSICAL EXAMINATION: GENERAL: Sitting up in bed, alert, chronically ill-appearing, disheveled EYE EXAM: normal conjunctiva. PERRL and EOM's intact. OROPHARYNX: no exudate, no erythema, lips, buccal mucosa, and tongue normal and mucous membranes are moist NECK: supple, no nuchal rigidity, no adenopathy, non-tender LUNGS: Clear to auscultation. Normal chest wall mechanics HEART: no murmurs, S1 normal and S2 normal ABDOMEN: abdomen soft, non-tender, normo-active bowel sounds, no masses, no rebound or guarding. UPPER EXTREMITIES: upper extremities are grossly normal. LOWER EXTREMITIES: No pitting edema. NEURO EXAM: Normal sensorium, cranial nerves II-XII intact, slurred speech, no weakness of arms, no weakness of legs. No drift. Finger to nose intact. Gross sensation intact. MEDICAL DECISION MAKING: Patient is an 80-year-old female who presents the ER for slurred speech and right arm weakness which occurred yesterday. The right arm weakness has now resolved and slurred speech is improving per the . IV was established blood work was obtained. Labs show no significant leukocytosis and a concentrated hemoglobin of 17. INR was unremarkable. BMP along with LFTs bilirubin and troponin was negative. Covid was negative. CT angio of the head and neck showed no acute pathology from previous. Patient was monitored closely while in the ER. Patient was updated and discussed with hospitalist for further evaluation. Triage Nursing notes reviewed. Limited review of prior medical records performed Vital Signs: reviewed and remarkable for HTN Differential diagnosis: Differential Diagnosis includes but is not limited to ischemic Stroke, hemorrhagic stroke, bells palsy, mass, neoplasm, migraine headache, seizure, subarachnoid hemorrhage, TIA, and transient global amnesia. ER treatment provided: See below Diagnostics interpreted by me: ECG: Sinus rhythm rate of 90 Left axis No PVCs QTC 494 Cardiac Monitoring: An order was placed for continuous cardiac monitoring. The monitor shows a rate of 90 with sinus rhythm. Laboratory studies: As stated above and show below. Imaging studies: CT angios of the head and neck as well as Noncon of the head was negative Consultation(s): Case was given to Dr. Benjamin Mars for further evaluation. Procedures: none Critical Care: None Past Med/Surg History Medical History (Updated 01/19/21 @ 17:58 by Andrey Leon DO) Allergic rhinitis Aneurysm, cerebral, nonruptured Repaired with stent> 2016 Per 12/05/2019 head CTA = postprocedural changes involving the distal left vertebral artery. 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 Anxiety Asthma well controlled per pt > no inhalers Asymptomatic hyperuricemia Atrial aneurysm Atrial fib/flutter, transient Follows [facility] > no cardioversions Loop recorder in place - [employer]- placed 09/05/18 Breast cancer DX in 2009> bilat mastectomy >no chemo Recently diagnosed with metastatic right breast carcinoma 08/13/20 Carotid artery dissection Carotid artery stenosis Follows with [facility]. S/p CEA years ago Per 12/05/2019 neck CTAatheromatous changes involving both ICAs without evid ence of hemodynamically significant stenosis. Short segment dissection of proximal ICA. Central stenosis of spinal canal Chronic kidney disease, stage 3 follows PCP > Dr. De La Cruz Chronic obstructive pulmonary disease has more difficulty at night with breathing. ok during day On oxygen in the past but no longer using CLL (chronic lymphocytic leukemia) Coronary artery calcification Deep vein thrombosis several yrs ago> left leg > caused from control pills Depression Diabetes mellitus type 2, uncontrolled IDDM Diabetic nephropathy Diverticulosis Gait disturbance Gastroesophageal reflux disease Hyperlipidemia Hyperplastic colon polyp Hypertension Hypothyroidism Internal hemorrhoids Left hemiparesis From stroke in November 2019 Lumbar radiculopathy Lumbar spinal stenosis Lumbar stenosis with neurogenic claudication Nicotine dependence Nodule of chest wall right lateral Nonalcoholic steatohepatitis Obesity On home oxygen therapy no longer using at this time Osteoarthritis bilateral knees, legs, hands Osteopenia Polycythemia Polyuria Seborrheic keratosis Sensorineural hearing loss (SNHL) of both ears Short-term memory loss Sleep apnea Sleep related hypoxia Sleep apnea > does not use CPAP Stroke December 05, 2019 > [facility] > has short term memory loss as result > left side weakness TMJ syndrome Urinary frequency Urinary incontinence Vertigo Vitamin D deficiency Surgical History H/O varicose vein ligation and stripping left leg History of appendectomy History of brain surgery Cerebral angiogram and stent-assisted coil embolization of the It PICA aneurysm. 12/22/2015 > follows with [facility] History of breast lump/mass excision History of carotid endarterectomy over 6 yrs ago > [facility] History of cataract surgery Right: July 2012 Left: August 2012 History of colonoscopy History of hysterectomy Ovaries intact History of mastectomy bilateral September 2009 History of parathyroid surgery Excision of benign neoplasm History of shoulder surgery Right shoulder arthroscopic labral debridement, subacromial decompression, and acromioplasty excision distal clavicle, biceps tenotomy. 06/15/2014 History of total knee replacement left 01/11/2012 Hx of tonsillectomy Family History Grandmother No problems noted. Father Lung disease Lung cancer Mother Cancer Hypertension Unknown Colon cancer Son Anxiety Depression Kidney stones Alcohol abuse Grandmother (Maternal) Lung cancer Sister COPD (chronic obstructive pulmonary disease) Son MVA (motor vehicle accident) Son Rheumatic fever Daughter Medical history unknown Denies family history of Ovarian cancer Prostate cancer Myocardial infarction Breast cancer Bleeding disorder Social History (Updated 12/14/20 @ 11:10 by Jennifer Ricks MA) Smoking Status: Current every day smoker Tobacco Type: Cigarettes Age Started Using Tobacco: 16; Years Smoked: 60; Cigarettes Per Day: 2; Second Hand Exposure: Yes; Hx Alcohol Use: Yes Alcohol type: hard liquor Hx Substance Use: No Preferred Language: Czech Communication Ability: Unable Visual Impairment: No Limitations Hearing Ability: Normal Engineer Chief Required: No Beliefs That Will Affect Care: None marital status: Current Living Situation: Spouse Current Living Situation Comment: Home current occupational status: retired 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 How many Children do You have: 4 How many Children do You have Comment: Pregnancies:6 Children:4 :1 Feels Safe at Home: Yes Childhood Exposure to Second-Hand Smoke: Yes caffeine: Yes during the past year weight has: remained stable Dental Care, Regularly: No Physical Activity Frequency: Does not Exercise Seatbelt Use: never Assistive Devices: Glasses and Walker Allergies Allergies Allergy/AdvReac Type Severity Reaction Status Date / Time adhesive Allergy Intermediate BLISTERS Verified 01/19/21 15:42 amitriptyline AdvReac Intermediate HALLUCINATI Verified 01/19/21 15:42 ONS atorvastatin AdvReac Intermediate JOINT PAIN Verified 01/19/21 15:42 cephalexin AdvReac Intermediate N/V Verified 01/19/21 15:42 pioglitazone AdvReac Intermediate SEVERE Verified 01/19/21 15:42 FATIGUE tramadol AdvReac Intermediate N/V Verified 01/19/21 15:42 codeine AdvReac Mild NAUSEA AND Verified 01/19/21 15:42 VOMITING doxycycline AdvReac Mild GI SYMPTOMS Verified 01/19/21 15:42 hydroxychloroquine AdvReac Mild Diarrhea Verified 01/19/21 15:42 [From Plaquenil] liraglutide AdvReac Mild GI UPSET Verified 01/19/21 15:42 metformin AdvReac Mild NAUSEA AND Verified 01/03/21 13:16 VOMITING phenol AdvReac Mild GI UPSET Verified 01/03/21 13:16 propylene glycol AdvReac Mild GI UPSET Verified 01/03/21 13:16 saccharin AdvReac Mild diarrhea Verified 01/03/21 13:16 zoster vaccine live AdvReac Unknown Unknown Verified 01/03/21 13:16 [From Zostavax (PF)] Home Meds Home Medications Medication Instructions Recorded Confirmed vit C-vit [id number]-[id number] ox-lutein 1 cap PO QAM 09/04/18 01/19/21 226 mg-200 unit-5 mg-0.8 mg capsule (PreserVision Lutein) aspirin 81 mg chewable tablet 81 mg PO QAM 01/21/19 01/19/21 rosuvastatin 20 mg tablet (Crestor) 20 mg PO HS tab 05/04/20 01/19/21 cetirizine 10 mg tablet 10 mg PO QAM 09/09/20 01/19/21 hydroxyzine HCl 25 mg tablet 25 mg PO BID PRN 09/09/20 01/19/21 insulin aspart U-100 100 unit/mL 20 unit SUBCUT TID ml 09/09/20 01/19/21 (3 mL) subcutaneous pen (Novolog Flexpen U-100 Insulin aspart) omeprazole 40 mg capsule,delayed 40 mg PO DAILY PRN cap 09/09/20 01/19/21 release levothyroxine 75 mcg capsule 75 mcg PO QAM 09/13/20 01/19/21 (Tirosint) oxybutynin chloride 5 mg 10 mg PO HS 09/13/20 01/19/21 tablet,extended release 24 hr anastrozole 1 mg tablet 1 mg PO DAILY 01/19/21 01/19/21 Previous Rx's Medication Instructions Recorded clopidogrel 75 mg tablet 75 mg PO QAM #90 tab 10/26/20 insulin detemir U-100 100 unit/mL 35 unit SUBCUT BID #30 ml 10/29/20 (3 mL) subcutaneous pen (Levemir FlexTouch U-100 Insulin) hydrocodone 5 mg-acetaminophen 325 1 - 2 tab PO .COMPLEX PRN #30 tab 12/02/20 mg tablet MDD 6 tabs lorazepam 0.5 mg tablet 0.5 mg PO TID PRN #30 tab 12/02/20 gabapentin 300 mg capsule 600 mg PO BID #360 cap 12/03/20 venlafaxine 150 mg 150 mg PO BID #180 cap 12/14/20 capsule,extended release 24 hr silver sulfadiazine 1 % topical 1 applic TOPICAL BID #85 g 01/03/21 cream (Silvadene) ciprofloxacin HCl 500 mg tablet 500 mg PO BID #20 tab 01/06/21 (Cipro) Results & Data (ED) Vital Signs Vital Signs - 24 hr 01/19/21 12:26 01/19/21 12:52 01/19/21 13:00 Temperature 37.0 C Temperature Source Oral Pulse Rate 91 H 90 90 Pulse Rate [Apical] Pulse Rate from SpO2 Sensor 94 H Pulse Rhythm Regular Pulse Strength Normal Respiratory Rate 18 15 17 Respiratory Effort / Characteristics Non-Labored Respiratory Depth Normal Respiratory Pattern Regular Blood Pressure 142/115 H 141/74 H 116/69 Blood Pressure [Right Arm] Blood Pressure Mean 124 96 84 Blood Pressure Mean [Right Arm] Pulse Oximetry 98 98 97 Oxygen Delivery Method Room Air Room Air Room Air Sepsis Recent Fever Within 48 Hours No Sepsis New/Unexplained Change in Mental Status N/A Sepsis Action Taken by Nursing No Action Required 01/19/21 13:15 01/19/21 13:31 01/19/21 13:48 Temperature Temperature Source Pulse Rate 87 90 92 H Pulse Rate [Apical] Pulse Rate from SpO2 Sensor Pulse Rhythm Pulse Strength Respiratory Rate 21 17 17 Respiratory Effort / Characteristics Respiratory Depth Respiratory Pattern Blood Pressure 135/77 123/69 Blood Pressure [Right Arm] Blood Pressure Mean 96 87 Blood Pressure Mean [Right Arm] Pulse Oximetry 98 97 98 Oxygen Delivery Method Room Air Room Air Room Air Sepsis Recent Fever Within 48 Hours Sepsis New/Unexplained Change in Mental Status Sepsis Action Taken by Nursing 01/19/21 13:50 01/19/21 14:11 01/19/21 14:20 Temperature Temperature Source Pulse Rate 91 H 93 H 91 H Pulse Rate [Apical] Pulse Rate from SpO2 Sensor Pulse Rhythm Pulse Strength Respiratory Rate 20 14 23 Respiratory Effort / Characteristics Respiratory Depth Respiratory Pattern Blood Pressure Blood Pressure [Right Arm] Blood Pressure Mean Blood Pressure Mean [Right Arm] Pulse Oximetry 97 97 97 Oxygen Delivery Method Room Air Room Air Room Air Sepsis Recent Fever Within 48 Hours Sepsis New/Unexplained Change in Mental Status Sepsis Action Taken by Nursing 01/19/21 14:30 01/19/21 14:45 01/19/21 15:01 Temperature Temperature Source Pulse Rate 89 92 H 87 Pulse Rate [Apical] Pulse Rate from SpO2 Sensor 89 93 H 87 Pulse Rhythm Pulse Strength Respiratory Rate 23 20 21 Respiratory Effort / Characteristics Respiratory Depth Respiratory Pattern Blood Pressure 126/69 121/76 119/96 Blood Pressure [Right Arm] Blood Pressure Mean 88 91 103 Blood Pressure Mean [Right Arm] Pulse Oximetry 96 99 96 Oxygen Delivery Method Room Air Room Air Room Air Sepsis Recent Fever Within 48 Hours Sepsis New/Unexplained Change in Mental Status Sepsis Action Taken by Nursing 01/19/21 15:15 01/19/21 15:30 01/19/21 15:48 Temperature Temperature Source Pulse Rate 86 87 85 Pulse Rate [Apical] Pulse Rate from SpO2 Sensor 86 88 84 Pulse Rhythm Pulse Strength Respiratory Rate 23 23 17 Respiratory Effort / Characteristics Respiratory Depth Respiratory Pattern Blood Pressure 110/72 120/96 Blood Pressure [Right Arm] Blood Pressure Mean 84 104 Blood Pressure Mean [Right Arm] Pulse Oximetry 98 98 97 Oxygen Delivery Method Room Air Room Air Room Air Sepsis Recent Fever Within 48 Hours Sepsis New/Unexplained Change in Mental Status Sepsis Action Taken by Nursing 01/19/21 15:50 01/19/21 16:00 Temperature Temperature Source Pulse Rate 87 87 Pulse Rate [Apical] 86 Pulse Rate from SpO2 Sensor 92 H Pulse Rhythm Pulse Strength Respiratory Rate 17 14 Respiratory Effort / Characteristics Non-Labored Respiratory Depth Normal Respiratory Pattern Blood Pressure Blood Pressure [Right Arm] 124/78 Blood Pressure Mean Blood Pressure Mean [Right Arm] 93 Pulse Oximetry 94 Oxygen Delivery Method Room Air Room Air Sepsis Recent Fever Within 48 Hours Sepsis New/Unexplained Change in Mental Status Sepsis Action Taken by Nursing Laboratory Data Result diagrams: 01/19/21 12:32 01/19/21 12:32 Lab Results 01/19/21 01/19/21 01/19/21 Range/Units 12:32 12:32 12:32 WBC 10.48 (4.8-10.8) K/uL RBC 5.45 H (4.2-5.4) M/uL Hgb 17.3 H (12.0-16.0) g/dL Hct 50.6 H (37-47) % MCV 92.8 (80-100) fL MCH 31.7 (25-34) pg MCHC 34.2 (32-36) g/dL RDW Std Deviation 49.5 H (36.4-46.3) fL RDW Coeff of [place] 14.5 (11.5-14.5) % Plt Count 270 (130-400) K/uL MPV 12.2 H (7.4-10.4) fL Immature Gran % (Auto) 0.3 % Neut % (Auto) 74.7 % Lymph % (Auto) 15.6 % Duval % (Auto) 7.6 % Eos % (Auto) 1.7 % Baso % (Auto) 0.1 % Neut # (Auto) 7.83 H (1.4-6.5) K/uL Lymph # (Auto) 1.63 (1.2-3.4) K/uL Duval # (Auto) 0.80 H (0.11-0.59) K/uL Eos # (Auto) 0.18 (0-0.5) K/uL Baso # (Auto) 0.01 (0-0.2) K/uL Immature Gran # (Auto) 0.03 H (0.00-0.02) K/uL PT 9.9 (9.0-12.0) Seconds INR 1.0 (0.9-1.1) APTT 24.8 (21.0-31.0) Seconds PTT Ratio 0.9 Sodium 136 (136-145) mmol/L Potassium 4.2 (3.5-5.1) mmol/L Chloride 102 (98-107) mmol/L Carbon Dioxide 25 (21-32) mmol/L Anion Gap 9.0 (3-11) BUN 13 (7-18) mg/dl Creatinine 1.29 H (0.6-1.2) mg/dl Est Cr Clr Drug Dosing 36.7 ml/min Est GFR ( Amer) 45.3 ml/min Est GFR (Non-Af Amer) 39.1 ml/min BUN/Creatinine Ratio 10.2 (10-20) Glucose 283 H (70-99) mg/dl Calcium 9.3 (8.5-10.1) mg/dl Magnesium 1.6 L (1.8-2.4) mg/dl Total Bilirubin 0.6 (0.2-1) mg/dl AST 22 (15-37) U/L ALT 28 (12-78) U/L Alkaline Phosphatase 80 (45-117) U/L Troponin I < 0.015 (0-0.045) ng/ml Total Protein 7.0 (6.4-8.2) gm/dl Albumin 3.6 (3.4-5.0) gm/dl Globulin 3.4 (2.5-4.0) gm/dl Albumin/Globulin Ratio 1.1 (0.9-2) Specimen Hemolysis COVID-19 Eval Order SARS-CoV-2 (PCR) (Negative) 01/19/21 01/19/21 Range/Units 14:42 14:42 WBC (4.8-10.8) K/uL RBC (4.2-5.4) M/uL Hgb (12.0-16.0) g/dL Hct (37-47) % MCV (80-100) fL MCH (25-34) pg MCHC (32-36) g/dL RDW Std Deviation (36.4-46.3) fL RDW Coeff of [place] (11.5-14.5) % Plt Count (130-400) K/uL MPV (7.4-10.4) fL Immature Gran % (Auto) % Neut % (Auto) % Lymph % (Auto) % Duval % (Auto) % Eos % (Auto) % Baso % (Auto) % Neut # (Auto) (1.4-6.5) K/uL Lymph # (Auto) (1.2-3.4) K/uL Duval # (Auto) (0.11-0.59) K/uL Eos # (Auto) (0-0.5) K/uL Baso # (Auto) (0-0.2) K/uL Immature Gran # (Auto) (0.00-0.02) K/uL PT (9.0-12.0) Seconds INR (0.9-1.1) APTT (21.0-31.0) Seconds PTT Ratio Sodium (136-145) mmol/L Potassium (3.5-5.1) mmol/L Chloride (98-107) mmol/L Carbon Dioxide (21-32) mmol/L Anion Gap (3-11) BUN (7-18) mg/dl Creatinine (0.6-1.2) mg/dl Est Cr Clr Drug Dosing ml/min Est GFR ( Amer) ml/min Est GFR (Non-Af Amer) ml/min BUN/Creatinine Ratio (10-20) Glucose (70-99) mg/dl Calcium (8.5-10.1) mg/dl Magnesium (1.8-2.4) mg/dl Total Bilirubin (0.2-1) mg/dl AST (15-37) U/L ALT (12-78) U/L Alkaline Phosphatase (45-117) U/L Troponin I (0-0.045) ng/ml Total Protein (6.4-8.2) gm/dl Albumin (3.4-5.0) gm/dl Globulin (2.5-4.0) gm/dl Albumin/Globulin Ratio (0.9-2) Specimen Hemolysis COVID-19 Eval Order Covid19 at [facility] SARS-CoV-2 (PCR) NEGATIVE (Negative) Administered Medications Discontinued Medications Ioversol (Optiray 320 125ml) 120 ml IV ONCE ONE Stop: 01/19/21 13:22 Last Admin: 01/19/21 13:21 Dose: 120 ml Documented by: [id number] Imaging Data Radiologist's Impression: Chest X-Ray 01/19/21 12:51 XR chest 1V portable HISTORY: 80 years-old Female Stroke Like Symptoms acute strokelike symptoms COMPARISON: Chest radiograph 04/09/2020 TECHNIQUE: Portable AP view of the chest FINDINGS: Cardiomediastinal and hilar silhouettes are within normal limits. Loop recorder device. Unchanged right hemidiaphragmatic elevation. No pneumothorax, pleural effusion or overt pulmonary edema. Mild linear bibasilar and right midlung flexion/scarring is unchanged. IMPRESSION: No acute process. ACT 112: Negative or not required by law. The above report was generated using voice recognition software. It may contain grammatical, syntax or spelling errors. Electronically signed by: Thang Cortez M.D. 01/19/2021 1:[address] 01/19/21 12:51 CT angio head w con, CT angio neck with con, CT head/brain wo con CLINICAL HISTORY: 80 years-old Female with Stroke Like Symptoms. Acute strokelike symptoms. History of breast cancer. COMPARISON STUDY: MRA of the head 12/17/2020, CTA head and neck 12/05/2019 TECHNIQUE: Unenhanced axial CT scan of the brain is performed. Subsequently, following the IV administration of 120 cc of Optiray, CT angiogram of the head and neck was performed from the aortic arch to the skull vertex. Images are reviewed in the axial, sagittal, and coronal planes. 3-D MIPS images are created and assessed. IV contrast was administered without complication. All measurements were obtained according to NASCET criteria. A dose lowering technique was utilized adhering to the principles of ALARA. CT DOSE: 1034.26 mGy.cm FINDINGS: CT BRAIN: There is no acute intracranial hemorrhage, midline shift, hydrocephalus, intracranial mass, territorial ischemia or abnormal extra-axial collections. No abnormal intra-axial or extra-axial enhancement. Age-related involutional changes with advanced chronic microvascular ischemic disease. Chronic lacunar infarcts of the basal ganglia and right thalamus. Mastoid air cells and middle ear cavities are clear. No calvarial fracture. Radiodense material within the distribution of the distal left vertebral artery redemonstrated. Paranasal sinuses are clear. Prior bilateral lens repair. CTA HEAD AND NECK: Moderate atherosclerosis of the thoracic aorta with three-vessel morphology. Patency of the nondependent and imaged subclavian arteries which demonstrate areas of mild luminal narrowing. Atherosclerotic plaque of the common carotid arteries resulting in mild multifocal luminal narrowing redemonstrated. Moderate atheromatous and atherosclerotic plaque of the carotid bulbs, left greater the right results in less than 50% stenosis of the proximal internal carotid arteries. 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 Additional atherosclerotic plaque of the cavernous, clinoid and supraclinoid segments without high-grade stenosis. 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 The middle and anterior cerebral arteries are patent. Dominant left vertebral artery. Unchanged high-grade stenosis at the origin of the left vertebral artery. Multifocal low-grade stenosis throughout the left vertebral artery redemonstrated with postprocedural changes of the V4 segment. Developmentally diminutive right vertebral artery demonstrates occlusion of the V1 segment with multifocal areas of reconstitution throughout the V2, V3 and V4 segments, similar to comparison. 2.5 mm saccular aneurysm involves the basilar artery on image 61 series 5. The posterior cerebral arteries are widely patent. The cerebral venous sinuses are patent. No pneumothorax. Unremarkable soft tissues of the neck. Multilevel degenerative changes of the cervical spine. IMPRESSION: 1. No acute intracranial abnormality. 2. CTA of the head and neck is unchanged from the 12/05/2019 exam. 3. 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 4. 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 5. 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 No aneurysm rupture. 6. 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 ACT 112: Negative or not required by law. The above report was generated using voice recognition software. It may contain grammatical, syntax or spelling errors. Electronically signed by: Thang Cortez M.D. 01/19/2021 2:29 PM Head CTA 01/19/21 12:51 CT angio head w con, CT angio neck with con, CT head/brain wo con CLINICAL HISTORY: 80 years-old Female with Stroke Like Symptoms. Acute strokelike symptoms. History of breast cancer. COMPARISON STUDY: MRA of the head 12/17/2020, CTA head and neck 12/05/2019 TECHNIQUE: Unenhanced axial CT scan of the brain is performed. Subsequently, fol lowing the IV administration of 120 cc of Optiray, CT angiogram of the head and neck was performed from the aortic arch to the skull vertex. Images are reviewed in the axial, sagittal, and coronal planes. 3-D MIPS images are created and assessed. IV contrast was administered without complication. All measurements were obtained according to NASCET criteria. A dose lowering technique was utilized adhering to the principles of ALARA. CT DOSE: 1034.26 mGy.cm FINDINGS: CT BRAIN: There is no acute intracranial hemorrhage, midline shift, hydrocephalus, intracranial mass, territorial ischemia or abnormal extra-axial collections. No abnormal intra-axial or extra-axial enhancement. Age-related involutional xuan nges with advanced chronic microvascular ischemic disease. Chronic lacunar infarcts of the basal ganglia and right thalamus. Mastoid air cells and middle ear cavities are clear. No calvarial fracture. Radiodense material within the distribution of the distal left vertebral artery redemonstrated. Paranasal sinuses are clear. Prior bilateral lens repair. CTA HEAD AND NECK: Moderate atherosclerosis of the thoracic aorta with three-vessel morphology. Patency of the nondependent and imaged subclavian arteries which demonstrate areas of mild luminal narrowing. Atherosclerotic plaque of the common carotid arteries resulting in mild multifocal luminal narrowing redemonstrated. Moderate atheromatous and atherosclerotic plaque of the carotid bulbs, left greater the right results in less than 50% stenosis of the proximal internal carotid arteries. 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 Additional atherosclerotic plaque of the cavernous, clinoid and supraclinoid segments without high-grade stenosis. 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 The middle and anterior cerebral arteries are patent. Dominant left vertebral artery. Unchanged high-grade stenosis at the origin of the left vertebral artery. Multifocal low-grade stenosis throughout the left cassie tebral artery redemonstrated with postprocedural changes of the V4 segment. Developmentally diminutive right vertebral artery demonstrates occlusion of the V1 segment with multifocal areas of reconstitution throughout the V2, V3 and V4 segments, similar to comparison. 2.5 mm saccular aneurysm involves the basilar artery on image 61 series 5. The posterior cerebral arteries are widely patent. The cerebral venous sinuses are patent. No pneumothorax. Unremarkable soft tissues of the neck. Multilevel degenerative changes of the cervical spine. IMPRESSION: 1. No acute intracranial abnormality. 2. CTA of the head and neck is unchanged from the 12/05/2019 exam. 3. 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 4. 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 5. 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 No aneurysm rupture. 6. 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 ACT 112: Negative or not required by law. The above report was generated using voice recognition software. It may contain grammatical, syntax or spelling errors. Electronically signed by: Thang Cortez M.D. 01/19/2021 2:29 PM Neck CTA 01/19/21 12:51 CT angio head w con, CT angio neck with con, CT head/brain wo con CLINICAL HISTORY: 80 years-old Female with Stroke Like Symptoms. Acute strokelike symptoms. History of breast cancer. COMPARISON STUDY: MRA of the head 12/17/2020, CTA head and neck 12/05/2019 TECHNIQUE: Unenhanced axial CT scan of the brain is performed. Subsequently, following the IV administration of 120 cc of Optiray, CT angiogram of the head and neck was performed from the aortic arch to the skull vertex. Images are reviewed in the axial, sagittal, and coronal planes. 3-D MIPS images are created and assessed. IV contrast was administered without complication. All measurements were obtained according to NASCET criteria. A dose lowering technique was utilized adhering to the principles of ALARA. CT DOSE: 1034.26 mGy.cm FINDINGS: CT BRAIN: There is no acute intracranial hemorrhage, midline shift, hydrocephalus, intracranial mass, territorial ischemia or abnormal extra-axial collections. No abnormal intra-axial or extra-axial enhancement. Age-related involutional changes with advanced chronic microvascular ischemic disease. Chronic lacunar infarcts of the basal ganglia and right thalamus. Mastoid air cells and middle ear cavities are clear. No calvarial fracture. Radiodense material within the distribution of the distal left vertebral artery redemonstrated. Paranasal sinuses are clear. Prior bilateral lens repair. CTA HEAD AND NECK: Moderate atherosclerosis of the thoracic aorta with three-vessel morphology. Patency of the nondependent and imaged subclavian arteries which demonstrate areas of mild luminal narrowing. Atherosclerotic plaque of the common carotid arteries resulting in mild multifocal luminal narrowing redemonstrated. Moderate atheromatous and atherosclerotic plaque of the carotid bulbs, left greater the right results in less than 50% stenosis of the proximal internal carotid arteries. 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 Additional atherosclerotic plaque of the cavernous, clinoid and supraclinoid segments without high-grade stenosis. 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 The middle and anterior cerebral arteries are patent. Dominant left vertebral artery. Unchanged high-grade stenosis at the origin of the left vertebral artery. Multifocal low-grade stenosis throughout the left vertebral artery redemonstrated with postprocedural changes of the V4 segment. Developmentally diminutive right vertebral artery demonstrates occlusion of the V1 segment with multifocal areas of reconstitution throughout the V2, V3 and V4 segments, similar to comparison. 2.5 mm saccular aneurysm involves the basilar artery on image 61 series 5. The posterior cerebral arteries are widely patent. The cerebral venous sinuses are patent. No pneumothorax. Unremarkable soft tissues of the neck. Multilevel degenerative changes of the cervical spine. IMPRESSION: 1. No acute intracranial abnormality. 2. CTA of the head and neck is unchanged from the 12/05/2019 exam. 3. 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 4. 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 5. 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 No aneurysm rupture. 6. 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 ACT 112: Negative or not required by law. The above report was generated using voice recognition software. It may contain grammatical, syntax or spelling errors. Electronically signed by: Thang Cortez M.D. 01/19/2021 2:29 PM Discharge Plan Visit Data Chief Complaint: Stroke/CVA Symptoms ED Provider: Andrey Leon Discharge Problem: Brain TIA, Weakness of right arm, Slurred speech Patient Disposition: Admitted As Inpatient Discharge Instructions Interventions: ED Discharge Assessment Last Done: 01/19/21 17:39
[2021-01-19 12:59] LABS: Basophils # (auto) 0.01 K/uL (0-0.2); Basophils % (auto) 0.1 %; Eosinophils # (auto) 0.18 K/uL (0-0.5); Eosinophils % (auto) 1.7 %; Hematocrit (blood only) 50.6 % (37-47); Hemoglobin 17.3 g/dL (12.0-16.0); Immature Granulocytes # (auto) 0.03 K/uL (0.00-0.02); Immature Granulocytes % (auto) 0.3 %; Lymphocytes # (auto) 1.63 K/uL (1.2-3.4); Lymphocytes % (auto) 15.6 %; Mean Corpuscular Hemoglobin 31.7 pg (25-34); Mean Corpuscular Hgb Conc 34.2 g/dL (32-36); Mean Corpuscular Volume 92.8 fL (80-100); Mean Platelet Volume 12.2 fL (7.4-10.4); Monocytes % (auto) 7.6 %; Neutrophils # (auto) 7.83 K/uL (1.4-6.5); Neutrophils % (auto) 74.7 %; Platelet Count 270 K/uL (130-400); RDW Coefficient of Variation 14.5 % (11.5-14.5); RDW Standard Deviation 49.5 fL (36.4-46.3); Red Blood Count 5.45 M/uL (4.2-5.4); White Blood Count 10.48 K/uL (4.8-10.8)
[2021-01-19 13:13] LABS: Alanine Aminotransferase 28 U/L (12-78); Albumin Globulin Ratio 1.1 (0.9-2); Albumin Level 3.6 gm/dl (3.4-5.0); Alkaline Phosphatase 80 U/L (45-117); Aspartate Aminotransferase 22 U/L (15-37); BUN Creatinine Ratio 10.2 (10-20); Bilirubin,Total 0.6 mg/dl (0.2-1); Blood Urea Nitrogen 13 mg/dl (7-18); Calcium 9.3 mg/dl (8.5-10.1); Carbon Dioxide 25 mmol/L (21-32); Chloride 102 mmol/L (98-107); Creatinine Clr Calc Pharmacy 36.7 ml/min; Est GFR (African American) 45.3 ml/min; Est GFR (Non-African American) 39.1 ml/min; Globulin 3.4 gm/dl (2.5-4.0); Glucose 283 mg/dl (70-99); Magnesium 1.6 mg/dl (1.8-2.4); Potassium 4.2 mmol/L (3.5-5.1); Sodium 136 mmol/L (136-145); Troponin I < 0.015 ng/ml (0-0.045)
[2021-01-19 13:16] LABS: Partial Thromboplastin Ratio 0.9; Partial Thromboplastin Time 24.8 Seconds (21.0-31.0); Prothrombin Time 9.9 Seconds (9.0-12.0)
--- NOTE | 2021-01-19 13:17 | XRay Report ---
XR chest 1V portable HISTORY: 80 years-old Female Stroke Like Symptoms acute strokelike symptoms COMPARISON: Chest radiograph 04/09/2020 TECHNIQUE: Portable AP view of the chest FINDINGS: Cardiomediastinal and hilar silhouettes are within normal limits. Loop recorder device. Unchanged rig ht hemidiaphragmatic elevation. No pneumothorax, pleural effusion or overt pulmonary edema. Mild line ar bibasilar and right midlung flexion/scarring is unchanged. IMPRESSION: No acute process. ACT 112: Negative or not required by law. The above report was generated using voice recognition software. It may contain grammatical, syntax o r spelling errors. Electronically signed by: Thang Cortez M.D. 01/19/2021 1:15 PM
[2021-01-19] MEDS ORDERED: OPTIRAY 320 125ml IV ONE (13:21)
--- NOTE | 2021-01-19 14:31 | CT Scan Report ---
CT angio head w con, CT angio neck with con, CT head/brain wo con CLINICAL HISTORY: 80 years-old Female with Stroke Like Symptoms. Acute strokelike symptoms. Histor y of breast cancer. COMPARISON STUDY: MRA of the head 12/17/2020, CTA head and neck 12/05/2019 TECHNIQUE: Unenhanced axial CT scan of the brain is performed. Subsequently, following the IV adminis tration of 120 cc of Optiray, CT angiogram of the head and neck was performed from the aortic arch to the skull vertex. Images are reviewed in the axial, sagittal, and coronal planes. 3-D MIPS images ar e created and assessed. IV contrast was administered without complication. All measurements were obta ined according to NASCET criteria. A dose lowering technique was utilized adhering to the principles of ALARA. CT DOSE: 1034.26 mGy.cm FINDINGS: CT BRAIN: There is no acute intracranial hemorrhage, midline shift, hydrocephalus, intracranial mass, territori al ischemia or abnormal extra-axial collections. No abnormal intra-axial or extra-axial enhancement. Age-related involutional changes with advanced chronic microvascular ischemic disease. Chronic lacuna r infarcts of the basal ganglia and right thalamus. Mastoid air cells and middle ear cavities are maddie ar. No calvarial fracture. Radiodense material within the distribution of the distal left vertebral a rtery redemonstrated. Paranasal sinuses are clear. Prior bilateral lens repair. CTA HEAD AND NECK: Moderate atherosclerosis of the thoracic aorta with three-vessel morphology. Patency of the nondepend ent and imaged subclavian arteries which demonstrate areas of mild luminal narrowing. Atherosclerotic plaque of the common carotid arteries resulting in mild multifocal luminal narrowing redemonstrated. Moderate atheromatous and atherosclerotic plaque of the carotid bulbs, left greater the right result s in less than 50% stenosis of the proximal internal carotid arteries. Short segment dissection of th e proximal cervical segment right ICA with a 5 x 3 mm area of saccular outpouching is unchanged on im age 171 series 6. Additional atherosclerotic plaque of the cavernous, clinoid and supraclinoid segmen ts without high-grade stenosis. Unchanged 3.5 mm saccular aneurysm arises from the right MCA trifurca tion on image 90 series 5. The middle and anterior cerebral arteries are patent. Dominant left vertebral artery. Unchanged high-grade stenosis at the origin of the left vertebral art onesimo. Multifocal low-grade stenosis throughout the left vertebral artery redemonstrated with postproce dural changes of the V4 segment. Developmentally diminutive right vertebral artery demonstrates occlu juan carlos of the V1 segment with multifocal areas of reconstitution throughout the V2, V3 and V4 segments, similar to comparison. 2.5 mm saccular aneurysm involves the basilar artery on image 61 series 5. Th e posterior cerebral arteries are widely patent. The cerebral venous sinuses are patent. No pneumothorax. Unremarkable soft tissues of the neck. Multilevel degenerative changes of the cervic al spine. IMPRESSION: 1. No acute intracranial abnormality. 2. CTA of the head and neck is unchanged from the 12/05/2019 exam. 3. 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 4. 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 5. 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 No aneurysm rupture. 6. 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 ACT 112: Negative or not required by law. The above report was generated using voice recognition software. It may contain grammatical, syntax o r spelling errors. Electronically signed by: Thang Cortez M.D. 01/19/2021 2:29 PM
--- NOTE | 2021-01-19 16:59 | History & Physical Report ---
Date of Service January 19, 2021 Assessment & Plan (1) Chronic kidney disease, stage 3: Plan: 80 y/o F Hx HLD, DM II, hypothyroidism, obese, PA, atrial tachycardia, CVA 2019, CLL, breast CA - recently completed radiation therapy. The pt developed impaired coordination and speech the prior evening. She states she was having difficulty feeding herself, and that her balance was off as well. Her symptoms persisted when she woke up, prompting her to attend the ER. Initial imaging including a CT, CTA head/neck were negative for acute findings. Labs are notable for erythrocytosis which is chronic, and impaired but stable renal function. 1) Neurological deficits - signs are more cerebellar than motor cortex, however, no abnormalities are showing on CT/CTA. We will proceed to MRI w/wo contrast as mets would be in the differential. She is already receiving ASA and Plavix. She was out of the window for TPA. Her cardiac status is a bit unclear. There is AF or flutter in the chart, however, notes form cardiology state "atrial tachycardia" and she currently has a loop recorder. If a thrombus can be confirmed, it may be reasonable to anticoagulate her, although her aneurysm would have to be considered. She is assigned to telemetry with neuro checks. She will continue her statin. Neurology consult is requested. 2) DM II - sliding scale 3) Hypothyroidism - cont Synthroid 4) PA - CPAP 5) HLD - statin 6) Breast CA - follow-up as outpt Full code - SCDs Total time for this admit including review of labs, meds, imaging, records - discussion with pt and ER attending - 53 min (2) Chronic obstructive pulmonary disease: (3) CLL (chronic lymphocytic leukemia): (4) Diabetes mellitus type 2, uncontrolled: (5) Hyperlipidemia: (6) Hypothyroidism: (7) Stroke: History of Present Illness Chief Complaint: R weakness and impaired speech. Primary Care Provider: Sumit De La Cruz MD 80 y/o F Hx HLD, DM II, hypothyroidism, obese, PA, atrial tachycardia, CVA 2019, CLL, breast CA - recently completed radiation therapy. The pt developed impaired coordination and speech the prior evening. She states she was having difficulty feeding herself, and that her balance was off as well. Her symptoms persisted when she woke up, prompting her to attend the ER. Initial imaging including a CT, CTA head/neck were negative for acute findings. Labs are notable for erythrocytosis which is chronic, and impaired but stable renal function. PMH: 1) HTN 2) HLD 3) DM II 4) Hypothyroidism 5) Obesity 6) PA 7) Atrial tachycardia - currently with loop recorder 8) CLL 9) Breast CA - 2009 with recurrence 2020 - initially treated with surgery only, recently with radiation. She has declined chemo. 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 12) Chronically elevated RBC count 13) COPD 14) DVT 15) CKD III Surgical: 1) Carotid endarterectomy 2) Hysterectomy 3) TKA 4) Craniotomy 5) B/L mastectomy 6) Appendectomy Social: Extensive smoking history, now smokes 1 cigarette daily Does not drink alcohol Family: Noncontributory to current complaint Allergies Allergy/AdvReac Type Severity Reaction Status Date / Time adhesive Allergy Intermediate BLISTERS Verified 01/19/21 15:42 amitriptyline AdvReac Intermediate HALLUCINATI Verified 01/19/21 15:42 ONS atorvastatin AdvReac Intermediate JOINT PAIN Verified 01/19/21 15:42 cephalexin AdvReac Intermediate N/V Verified 01/19/21 15:42 pioglitazone AdvReac Intermediate SEVERE Verified 01/19/21 15:42 FATIGUE tramadol AdvReac Intermediate N/V Verified 01/19/21 15:42 codeine AdvReac Mild NAUSEA AND Verified 01/19/21 15:42 VOMITING doxycycline AdvReac Mild GI SYMPTOMS Verified 01/19/21 15:42 hydroxychloroquine AdvReac Mild Diarrhea Verified 01/19/21 15:42 [From Plaquenil] liraglutide AdvReac Mild GI UPSET Verified 01/19/21 15:42 metformin AdvReac Mild NAUSEA AND Verified 01/03/21 13:16 VOMITING phenol AdvReac Mild GI UPSET Verified 01/03/21 13:16 propylene glycol AdvReac Mild GI UPSET Verified 01/03/21 13:16 saccharin AdvReac Mild diarrhea Verified 01/03/21 13:16 zoster vaccine live AdvReac Unknown Unknown Verified 01/03/21 13:16 [From Zostavax (PF)] Home Medications Medication Instructions Recorded Confirmed Type vit C-vit L-[id number] ox-lutein 1 cap PO QAM 09/04/18 01/19/21 History 226 mg-200 unit-5 mg-0.8 mg capsule (PreserVision Lutein) aspirin 81 mg chewable tablet 81 mg PO QAM 01/21/19 01/19/21 History rosuvastatin 20 mg tablet (Crestor) 20 mg PO HS tab 05/04/20 01/19/21 History cetirizine 10 mg tablet 10 mg PO QAM 09/09/20 01/19/21 History hydroxyzine HCl 25 mg tablet 25 mg PO BID PRN 09/09/20 01/19/21 History insulin aspart U-100 100 unit/mL 20 unit SUBCUT TID ml 09/09/20 01/19/21 History (3 mL) subcutaneous pen (Novolog Flexpen U-100 Insulin aspart) omeprazole 40 mg capsule,delayed 40 mg PO DAILY PRN cap 09/09/20 01/19/21 History release levothyroxine 75 mcg capsule 75 mcg PO QAM 09/13/20 01/19/21 History (Tirosint) oxybutynin chloride 5 mg 10 mg PO HS 09/13/20 01/19/21 History tablet,extended release 24 hr clopidogrel 75 mg tablet 75 mg PO QAM #90 tab 10/26/20 01/19/21 Rx insulin detemir U-100 100 unit/mL 35 unit SUBCUT BID #30 ml 10/29/20 01/19/21 Rx (3 mL) subcutaneous pen (Levemir FlexTouch U-100 Insulin) hydrocodone 5 mg-acetaminophen 325 1 - 2 tab PO .COMPLEX PRN #30 tab 12/02/20 01/19/21 Rx mg tablet MDD 6 tabs lorazepam 0.5 mg tablet 0.5 mg PO TID PRN #30 tab 12/02/20 01/19/21 Rx gabapentin 300 mg capsule 600 mg PO BID #360 cap 12/03/20 01/19/21 Rx venlafaxine 150 mg 150 mg PO BID #180 cap 12/14/20 01/19/21 Rx capsule,extended release 24 hr silver sulfadiazine 1 % topical 1 applic TOPICAL BID #85 g 01/03/21 01/19/21 Rx cream (Silvadene) ciprofloxacin HCl 500 mg tablet 500 mg PO BID #20 tab 01/06/21 01/19/21 Rx (Cipro) anastrozole 1 mg tablet 1 mg PO DAILY 01/19/21 01/19/21 History Past Med/Surg History Medical History (Updated 12/14/20 @ 11:38 by SHANE Toussaint) Allergic rhinitis Aneurysm, cerebral, nonruptured Repaired with stent> 2016 Per 12/05/2019 head CTA = postprocedural changes involving the distal left vertebral artery. 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 Anxiety Asthma well controlled per pt > no inhalers Asymptomatic hyperuricemia Atrial aneurysm Atrial fib/flutter, transient Follows [facility] > no cardioversions Loop recorder in place - [employer]- placed 09/05/18 Breast cancer DX in 2009> bilat mastectomy >no chemo Recently diagnosed with metastatic right breast carcinoma 08/13/20 Carotid artery dissection Carotid artery stenosis Follows with [facility]. S/p CEA years ago Per 12/05/2019 neck CTAatheromatous changes involving both ICAs without evidence of hemodynamically significant stenosis. Short segment dissection of proximal ICA. Central stenosis of spinal canal Chronic kidney disease, stage 3 follows PCP > Dr. De La Cruz Chronic obstructive pulmonary disease has more difficulty at night with breathing. ok during day On oxygen in the past but no longer using CLL (chronic lymphocytic leukemia) Coronary artery calcification Deep vein thrombosis several yrs ago> left leg > caused from control pills Depression Diabetes mellitus type 2, uncontrolled IDDM Diabetic nephropathy Diverticulosis Gait disturbance Gastroesophageal reflux disease Hyperlipidemia Hyperplastic colon polyp Hypertension Hypothyroidism Internal hemorrhoids Left hemiparesis From stroke in November 2019 Lumbar radiculopathy Lumbar spinal stenosis Lumbar stenosis with neurogenic claudication Nicotine dependence Nodule of chest wall right lateral Nonalcoholic steatohepatitis Obesity On home oxygen therapy no longer using at this time Osteoarthritis bilateral knees, legs, hands Osteopenia Polycythemia Polyuria Seborrheic keratosis Sensorineural hearing loss (SNHL) of both ears Short-term memory loss Sleep apnea Sleep related hypoxia Sleep apnea > does not use CPAP Stroke December 05, 2019 > [facility] > has short term memory loss as result > left side weakness TMJ syndrome Urinary frequency Urinary incontinence Vertigo Vitamin D deficiency Surgical History H/O varicose vein ligation and stripping left leg History of appendectomy History of brain surgery Cerebral angiogram and stent-assisted coil embolization of the It PICA aneurysm. 12/22/2015 > follows with Mamadou Abdi History of breast lump/mass excision History of carotid endarterectomy over 6 yrs ago > [facility] History of cataract surgery Right: July 2012 Left: August 2012 History of colonoscopy History of hysterectomy Ovaries intact History of mastectomy bilateral September 2009 History of parathyroid surgery Excision of benign neoplasm History of shoulder surgery Right shoulder arthroscopic labral debridement, subacromial decompression, and acromioplasty excision distal clavicle, biceps tenotomy. 06/15/2014 History of total knee replacement left 01/11/2012 Hx of tonsillectomy Family History Grandmother No problems noted. Father Lung disease Lung cancer Mother Cancer Hypertension Unknown Colon cancer Son Anxiety Depression Kidney stones Alcohol abuse Grandmother (Maternal) Lung cancer Sister COPD (chronic obstructive pulmonary disease) Son MVA (motor vehicle accident) Son Rheumatic fever Daughter Medical history unknown Denies family history of Ovarian cancer Prostate cancer Myocardial infarction Breast cancer Bleeding disorder Social History (Updated 12/14/20 @ 11:10 by Jennifer Ricks MA) Smoking Status: Current every day smoker Tobacco Type: Cigarettes Age Started Using Tobacco: 16; Years Smoked: 60; Cigarettes Per Day: 2; Second Hand Exposure: Yes; Hx Alcohol Use: Yes Alcohol type: hard liquor Hx Substance Use: No Preferred Language: Greek Communication Ability: Unable Visual Impairment: No Limitations Hearing Ability: Normal Supervisor Hand Silvering Required: No Beliefs That Will Affect Care: None marital status: Current Living Situation: Spouse Current Living Situation Comment: Home current occupational status: retired 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 [employer] How many Children do You have: 4 How many Children do You have Comment: Pregnancies:6 Children:4 :1 Feels Safe at Home: Yes Childhood Exposure to Second-Hand Smoke: Yes caffeine: Yes during the past year weight has: remained stable Dental Care, Regularly: No Physical Activity Frequency: Does not Exercise Seatbelt Use: never Assistive Devices: Glasses and Walker Review of Systems Review of Systems: Gen: Denies fevers, night sweats, rigors, fatigue, malaise, weight loss/gain ENT: Denies congestion, throat pain, hearing loss Eyes: Denies acute visual changes CV: Denies CP, palpitations Pulmonary: Denies SOB, cough, wheezing GI: Denies N/V, diarrhea, constipation Neuro: Acute R weakness, impaired coordination, gait and speech Musculoskeletal: Denies joint pain, inflammation Endocrine: Denies polydipsia, polyuria Skin: Denies acute rashes or ulcers Physical Exam Physical Exam: General: AAO x 3, no distress ENT: No erythema or exudates, no thrush Eyes: YVONNE, EOMI Head and neck: Normocephalic, atraumatic, No JVD, neck is supple. Chest/heart: Nontender, S1,2, RRR, no murmurs, no gallops Lungs: CTAB, no wheezing or crackles Abdomen: Nontender, nondistended, BS+ Neuro: AAO x 3, difficulty initiating speech and some stuttering although no slurring is observed, weakness and shaking is present BL when testing for drift. Medical Coding Specialist is intact BL. Musculoskeletal: No joint inflammation, muscle tenderness, FROM Skin: No acute rashes or ulcers Extremities: No clubbing, cyanosis, edema Results & Data Results & Data ([facility]) Vital Signs (Past 12 Hours) Vital Signs Temp Pulse Pulse Resp BP BP Pulse Ox 01/19/21 16:00 87 86 14 124/78 94 01/19/21 15:50 87 17 01/19/21 15:48 85 17 97 01/19/21 15:30 87 23 120/96 98 01/19/21 15:15 86 23 110/72 98 01/19/21 15:01 87 21 119/96 96 01/19/21 14:45 92 H 20 121/76 99 01/19/21 14:30 89 23 126/69 96 01/19/21 14:20 91 H 23 97 01/19/21 14:11 93 H 14 97 01/19/21 13:50 91 H 20 97 01/19/21 13:48 92 H 17 98 01/19/21 13:31 90 17 123/69 97 01/19/21 13:15 87 21 135/77 98 01/19/21 13:00 90 17 116/69 97 01/19/21 12:52 90 15 141/74 H 98 01/19/21 12:26 98.6 F 91 H 18 142/115 H 98 Code Status & VTE Plan VTE Prophylaxis Plan VTE Prophylaxis will be ordered: Yes PG Care Time/CCT Total # of Minutes Spent Total Time Spent with Patient: Total time spent is greater than 50% in coordination of care (as documented) at patient's floor/unit and/or counseling patient: Coding Level of Care Code INT OBSERVATION CARE 70M LVL 3 Diagnoses Chronic kidney disease, stage 3 N18.32 Chronic kidney disease stage 3 subtype: stage 3b (GFR 30-44) Chronic obstructive pulmonary disease J44.9 COPD type: unspecified COPD CLL (chronic lymphocytic leukemia) C91.10 Diabetes mellitus type 2, uncontrolled E11.65 Coma presence: without coma Hyperlipidemia E78.2 Hyperlipidemia type: mixed hyperlipidemia Hypothyroidism E03.9 Hypothyroidism type: unspecified Stroke I63.9 (1) Chronic kidney disease, stage 3 Chronic kidney disease stage 3 subtype: stage 3b (GFR 30-44) Qualified Code(s): N18.32 - Chronic kidney disease, stage 3b (2) Chronic obstructive pulmonary disease COPD type: unspecified COPD Qualified Code(s): J44.9 - Chronic obstructive pulmonary disease, unspecified (3) Diabetes mellitus type 2, uncontrolled Coma presence: without coma (4) Hyperlipidemia Hyperlipidemia type: mixed hyperlipidemia Qualified Code(s): E78.2 - Mixed hyperlipidemia (5) Hypothyroidism Hypothyroidism type: unspecified Qualified Code(s): E03.9 - Hypothyroidism, unspecified
[2021-01-19] MEDS ORDERED: LORazepam 0.5 MG/1 ML VIAL IV STA (17:34)
[2021-01-19] MEDS ORDERED: CARBOHYDRATES FOR HYPOGLYCEMIA PO PRN (18:21)
[2021-01-19] MEDS ORDERED: GLUCAGON FOR INJ 1 MG VIAL SQ PRN (18:21)
[2021-01-19] MEDS ORDERED: GLUCOSE 10 TABS/TUBE PO PRN (18:21)
[2021-01-19] MEDS ORDERED: ACETAMINOPHEN 325 MG TAB PO PRN (18:21)
[2021-01-19] MEDS ORDERED: DEXTROSE 50% 50 ML SYRINGE IV PRN (18:21)
[2021-01-19] MEDS ORDERED: GLUCOSE 40% GEL 15 GM TUBE PO PRN (18:21)
[2021-01-19] MEDS ORDERED: PHARMACIST DISCHARGE MED REC CONSULT PRN (18:21)
[2021-01-19] MEDS ORDERED: ONDANSETRON INJ 2 MG/ML 2 ML VIAL IV PRN (18:21)
[2021-01-19] MEDS ORDERED: PANTOprazole 40 MG TAB PO PRN (18:40)
[2021-01-19] MEDS ORDERED: LORazepam 2 MG/4 ML VIAL ONE (20:17)
[2021-01-19] MEDS ORDERED: INSULIN ASPART 100 UNITS/ML 3 ML PEN SQ SCH (21:00)
[2021-01-19] MEDS ORDERED: GADOBUTROL 65ML VIAL IV ONE (21:06)
[2021-01-19] MEDS: SILVER SULFADIAZINE 1% CR 50 GM JAR TOP SCH (21:57)
[2021-01-19] MEDS: GABAPENTIN 300 MG CAP PO SCH (21:58)
[2021-01-19] MEDS: ROSUVASTATIN CALCIUM 20 MG TAB PO SCH (21:59)
[2021-01-19] MEDS: VENLAFAXINE HCL XR 150 MG CAPXR PO SCH (21:59)
[2021-01-19] MEDS: OXYBUTYNIN CHLORIDE XL 5 MG TABCR PO SCH (21:59)
[2021-01-19] MEDS: INSULIN ASPART 100 UNITS/ML 3 ML PEN SC SCH (22:29)
[2021-01-20] MEDS: INSULIN ASPART 100 UNITS/ML 3 ML PEN SC SCH ×5 (00:12→20:29)
[2021-01-20] MEDS: LEVOTHYROXINE SODIUM 75 MCG TABLET PO SCH (05:41)
[2021-01-20 06:12] LABS: Basophils # (auto) 0.02 K/uL (0-0.2); Basophils % (auto) 0.2 %; Eosinophils # (auto) 0.27 K/uL (0-0.5); Eosinophils % (auto) 3.1 %; Hematocrit (blood only) 49.7 % (37-47); Hemoglobin 16.8 g/dL (12.0-16.0); Immature Granulocytes # (auto) 0.03 K/uL (0.00-0.02); Immature Granulocytes % (auto) 0.3 %; Lymphocytes # (auto) 0.98 K/uL (1.2-3.4); Lymphocytes % (auto) 11.4 %; Mean Corpuscular Hemoglobin 31.6 pg (25-34); Mean Corpuscular Hgb Conc 33.8 g/dL (32-36); Mean Corpuscular Volume 93.6 fL (80-100); Monocytes # (auto) 0.89 K/uL (0.11-0.59); Monocytes % (auto) 10.3 %; Neutrophils # (auto) 6.42 K/uL (1.4-6.5); Neutrophils % (auto) 74.7 %; Platelet Count 248 K/uL (130-400); RDW Coefficient of Variation 14.7 % (11.5-14.5); RDW Standard Deviation 50.4 fL (36.4-46.3); Red Blood Count 5.31 M/uL (4.2-5.4); White Blood Count 8.61 K/uL (4.8-10.8)
[2021-01-20 06:46] LABS: BUN Creatinine Ratio 12.5 (10-20); Calcium 8.8 mg/dl (8.5-10.1); Creatinine Clr Calc Pharmacy 35.2 ml/min; Est GFR (African American) 43.3 ml/min; Est GFR (Non-African American) 37.3 ml/min; Potassium 3.8 mmol/L (3.5-5.1)
--- NOTE | 2021-01-20 07:26 | Magnetic Resonance Report ---
Brain MRI WITH AND WITHOUT CONTRAST HISTORY: Slurred speech and confusion. Stroke like symptoms. TECHNIQUE: Multiplanar multisequence MRI of the brain was performed both before and after the intrave nous administration of contrast. COMPARISON STUDY: Head CT 01/19/2021. FINDINGS: Suboptimal evaluation of the brain due to the mild motion artifact. No areas of restricted diffusion to suggest acute infarction. The midline structures appear intact. The ventricles and sulci demonstrate moderate age-related involutional changes. Patchy periventricular white matter T2 hyperi ntensity is nonspecific but favors moderate microvascular ischemic change. The major vascular flow vo ids at the skull base are well-maintained. No definite mass, hematoma, or midline shift. Old lacunar infarction within the right thalamus. The paranasal sinuses and mastoid air cells appear clear. No ab normal enhancement. IMPRESSION: 1. No acute infarct. 2. No abnormal enhancement or intracranial mass. 3. Moderate atrophy and microvascular ischemic changes. ACT 112: Negative or not required by law. Electronically signed by: Robles Hurst M.D. 01/20/2021 7:24 AM
[2021-01-20 07:32] LABS: Estimated Average Glucose 258 mg/dl; Hemoglobin A1C 10.6 % (4.5-5.6)
[2021-01-20] MEDS ORDERED: ASPIRIN 81 MG CHEW PO SCH (09:00)
[2021-01-20] MEDS: GABAPENTIN 300 MG CAP PO SCH ×2 (09:16→20:33)
[2021-01-20] MEDS: ASPIRIN 81 MG ECTAB PO SCH (09:16)
[2021-01-20] MEDS: SILVER SULFADIAZINE 1% CR 50 GM JAR TOP SCH ×2 (09:17→20:32)
[2021-01-20] MEDS: CLOPIDOGREL BISULFATE 75 MG TAB PO SCH (09:20)
[2021-01-20] MEDS: VENLAFAXINE HCL XR 150 MG CAPXR PO SCH ×2 (09:21→20:34)
--- NOTE | 2021-01-20 12:22 | Neurology Consultation ---
Date of Consultation January 20, 2021 Assessment & Plan (1) Stroke-like symptoms: (2) Cerebrovascular disease: (3) Cerebral aneurysm without rupture: (4) Carotid artery dissection: This patient has persistent mild dysarthria and clumsiness of the right hand, could have "clumsy hand dysarthria lacunar stroke syndrome" although her brain MRI does not reveal any evidence of acute or subacute stroke. The study does reveal rather extensive chronic cerebrovascular disease, however. It is n otable that she had similar symptoms that were felt to be related to an acute stroke that occurred last November, also with a brain MRI that was negative. 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 She also has a stable chronic short segment dissection of the proximal cervical right ICA as well as two small stable cerebral aneurysms. This patient is already on dual antiplatelet therapy, daily low-dose aspirin and clopidogrel. She is also prescribed Crestor. These medication should be continued. Insulin-dependent diabetes mellitus is also a risk factor for this patient and it appears as if her diabetes is not well controlled. This issue will need ongoing management. Further, it is unclear to me if this patient has a history of atrial fibrillation or not. She follows with cardiology and clinic notes suggest atrial arrhythmia or tachycardia rather than atrial fibrillation. Would follow-up with echocardiogram results. I agree that it may be reasonable to consider anticoagulation given her history of recurrent strokelike episodes/TIA. Otherwise, would continue with dual antiplatelet therapy as above. If anticoagulation is elected would consider discontinuing one of her antiplatelet agents, either aspirin or clopidogrel. It does not sound like this patient is having seizures and I do not think an EEG would be very helpful at this point in time. The 2 small cerebral aneurysms are incidental and will need some additional monitoring. A follow-up CT angiogram can be completed in 1 to 2 years. Rupture risk is very low given the small size of these aneurysms. Blood pressure control remains important going forward. History of Present Illness Reason for Consultation: Stroke Requesting Physician: Benjamin Mars MD Attending Physician: Troy Marlow History of Present Illness The patient is an 80-year-old female with a chief complaint of difficulty with speech and clumsiness of the right hand that began this past Sunday. She reports that her speech has been slow and somewhat dysarthric sounding. No difficulty with naming or language comprehension. She also complains of some subtle weakness or clumsiness affecting the right hand. She remarks that her symptoms are perhaps improved since onset but are still present to a mild degree. Past medical history notable for type 2 diabetes mellitus, hyperlipidemia, CLL and breast cancer for which she has recently completed radiation treatments and chemotherapy. [facility] for strokelike symptoms although no acute findings were identified on brain MRI at that time. Up-to-date neuro imaging has been completed including CT of the head, CT angiography of the head and neck, and brain MRI. The studies reveal a dominant left vertebral artery with high-grade stenosis at its origin and occlusion of the right vertebral artery at the V1 segment with multifocal areas of reconstitution. 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 There is a short segment dissection of the proximal cervical segment of the right internal carotid artery. These changes are all stable compared with previous angiography done last November. The brain MRI is negative for acute or subacute infarct or evidence of intracranial mass. There is moderate atrophy and chronic small vessel ischemic disease. There is an old lacunar infarct within the right thalamus. I did review the images as well as the radiologist's interpretation of these tests and agree. I did review neurology notes from last November pertaining to this patient's strokelike presentation characterized by acute onset right-sided weakness and word finding difficulty at that time. She was felt to have probably had a left hemispheric stroke although again, her brain MRI at that time was negative for acute process. There is not appear to be any clinical evidence of clinical seizure activity in this patient. Allergies Allergy/AdvReac Type Severity Reaction Status Date / Time adhesive Allergy Intermediate BLISTERS Verified 01/19/21 15:42 amitriptyline AdvReac Intermediate HALLUCINATI Verified 01/19/21 15:42 ONS atorvastatin AdvReac Intermediate JOINT PAIN Verified 01/19/21 15:42 cephalexin AdvReac Intermediate N/V Verified 01/19/21 15:42 pioglitazone AdvReac Intermediate SEVERE Verified 01/19/21 15:42 FATIGUE tramadol AdvReac Intermediate N/V Verified 01/19/21 15:42 codeine AdvReac Mild NAUSEA AND Verified 01/19/21 15:42 VOMITING doxycycline AdvReac Mild GI SYMPTOMS Verified 01/19/21 15:42 hydroxychloroquine AdvReac Mild Diarrhea Verified 01/19/21 15:42 [From Plaquenil] liraglutide AdvReac Mild GI UPSET Verified 01/19/21 15:42 metformin AdvReac Mild NAUSEA AND Verified 01/03/21 13:16 VOMITING phenol AdvReac Mild GI UPSET Verified 01/03/21 13:16 propylene glycol AdvReac Mild GI UPSET Verified 01/03/21 13:16 saccharin AdvReac Mild diarrhea Verified 01/03/21 13:16 zoster vaccine live AdvReac Unknown Unknown Verified 01/03/21 13:16 [From Zostavax (PF)] Home Medications Medication Instructions Recorded Confirmed Type vit C-vit [id number] ox-lutein 1 cap PO QAM 09/04/18 01/19/21 History 226 mg-200 unit-5 mg-0.8 mg capsule (PreserVision Lutein) aspirin 81 mg chewable tablet 81 mg PO QAM 01/21/19 01/19/21 History rosuvastatin 20 mg tablet (Crestor) 20 mg PO HS tab 05/04/20 01/19/21 History cetirizine 10 mg tablet 10 mg PO QAM 09/09/20 01/19/21 History hydroxyzine HCl 25 mg tablet 25 mg PO BID PRN 09/09/20 01/19/21 History insulin aspart U-100 100 unit/mL 20 unit SUBCUT TID ml 09/09/20 01/19/21 History (3 mL) subcutaneous pen (Novolog Flexpen U-100 Insulin aspart) omeprazole 40 mg capsule,delayed 40 mg PO DAILY PRN cap 09/09/20 01/19/21 History release levothyroxine 75 mcg capsule 75 mcg PO QAM 09/13/20 01/19/21 History (Tirosint) oxybutynin chloride 5 mg 10 mg PO HS 09/13/20 01/19/21 History tablet,extended release 24 hr clopidogrel 75 mg tablet 75 mg PO QAM #90 tab 10/26/20 01/19/21 Rx insulin detemir U-100 100 unit/mL 35 unit SUBCUT BID #30 ml 10/29/20 01/19/21 Rx (3 mL) subcutaneous pen (Levemir FlexTouch U-100 Insulin) hydrocodone 5 mg-acetaminophen 325 1 - 2 tab PO .COMPLEX PRN #30 tab 12/02/20 01/19/21 Rx mg tablet MDD 6 tabs lorazepam 0.5 mg tablet 0.5 mg PO TID PRN #30 tab 12/02/20 01/19/21 Rx gabapentin 300 mg capsule 600 mg PO BID #360 cap 12/03/20 01/19/21 Rx venlafaxine 150 mg 150 mg PO BID #180 cap 12/14/20 01/19/21 Rx capsule,extended release 24 hr silver sulfadiazine 1 % topical 1 applic TOPICAL BID #85 g 01/03/21 01/19/21 Rx cream (Silvadene) ciprofloxacin HCl 500 mg tablet 500 mg PO BID #20 tab 01/06/21 01/19/21 Rx (Cipro) anastrozole 1 mg tablet 1 mg PO DAILY 01/19/21 01/19/21 History Patient History Medical History (Updated 01/20/21 @ 11:57 by Clemente Arriaga MD) Allergic rhinitis Aneurysm, cerebral, nonruptured Repaired with stent> 2016 Per 12/05/2019 head CTA = postprocedural changes involving the distal left vertebral artery. 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 Anxiety Asthma well controlled per pt > no inhalers Asymptomatic hyperuricemia Atrial aneurysm Atrial fib/flutter, transient Follows [facility] > no cardioversions Loop recorder in place - [employer]- placed 09/05/18 Breast cancer DX in 2009> bilat mastectomy >no chemo Recently diagnosed with metastatic right breast carcinoma 08/13/20 Carotid artery dissection Carotid artery stenosis Follows with [facility]. S/p CEA years ago Per 12/05/2019 neck CTAatheromatous changes involving both ICAs without evidence of hemodynamically significant stenosis. Short segment dissection of proximal ICA. Central stenosis of spinal canal Chronic kidney disease, stage 3 follows PCP > Dr. De La Cruz Chronic obstructive pulmonary disease has more difficulty at night with breathing. ok during day On oxygen in the past but no longer using CLL (chronic lymphocytic leukemia) Coronary artery calcification Deep vein thrombosis several yrs ago> left leg > caused from control pills Depression Diabetes mellitus type 2, uncontrolled IDDM Diabetic nephropathy Diverticulosis Gait disturbance Gastroesophageal reflux disease Hyperlipidemia Hyperplastic colon polyp Hypertension Hypothyroidism Internal hemorrhoids Left hemiparesis From stroke in November 2019 Lumbar radiculopathy Lumbar spinal stenosis Lumbar stenosis with neurogenic claudication Nicotine dependence Nodule of chest wall right lateral Nonalcoholic steatohepatitis Obesity On home oxygen therapy no longer using at this time Osteoarthritis bilateral knees, legs, hands Osteopenia Polycythemia Polyuria Seborrheic keratosis Sensorineural hearing loss (SNHL) of both ears Short-term memory loss Sleep apnea Sleep related hypoxia Sleep apnea > does not use CPAP Stroke December 05, 2019 > [facility] > has short term memory loss as result > left side weakness TMJ syndrome Urinary frequency Urinary incontinence Vertigo Vitamin D deficiency Surgical History H/O varicose vein ligation and stripping left leg History of appendectomy History of brain surgery Cerebral angiogram and stent-assisted coil embolization of the It PICA aneurysm. 12/22/2015 > follows with [facility] History of breast lump/mass excision History of carotid endarterectomy over 6 yrs ago > [facility] History of cataract surgery Right: July 2012 Left: August 2012 History of colonoscopy History of hysterectomy Ovaries intact History of mastectomy bilateral September 2009 History of parathyroid surgery Excision of benign neoplasm History of shoulder surgery Right shoulder arthroscopic labral debridement, subacromial decompression, and acromioplasty excision distal clavicle, biceps tenotomy. 06/15/2014 History of total knee replacement left 01/11/2012 Hx of tonsillectomy Family History Grandmother No problems noted. Father Lung disease Lung cancer Mother Cancer Hypertension Unknown Colon cancer Son Anxiety Depression Kidney stones Alcohol abuse Grandmother (Maternal) Lung cancer Sister COPD (chronic obstructive pulmonary disease) Son MVA (motor vehicle accident) Son Rheumatic fever Daughter Medical history unknown Denies family history of Ovarian cancer Prostate cancer Myocardial infarction Breast cancer Bleeding disorder Social History (Updated 12/14/20 @ 11:10 by Jennifer Ricks MA) Smoking Status: Current every day smoker Tobacco Type: Cigarettes Age Started Using Tobacco: 16; Years Smoked: 60; Cigarettes Per Day: 2; Second Hand Exposure: Yes; Hx Alcohol Use: No Hx Substance Use: No Preferred Language: Belarusian Communication Ability: Effective Visual Impairment: No Limitations Hearing Ability: Normal City Bailiff Required: No Beliefs That Will Affect Care: None marital status: Current Living Situation: Spouse Current Living Situation Comment: Home current occupational status: retired 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 [employer] How many Children do You have: 4 How many Children do You have Comment: Pregnancies:6 Children:4 :1 Feels Safe at Home: Yes Childhood Exposure to Second-Hand Smoke: Yes caffeine: Yes during the past year weight has: remained stable Dental Care, Regularly: No Physical Activity Frequency: Does not Exercise Seatbelt Use: never Assistive Devices: BiPap and Glasses Review of Systems Constitutional: no fever and no chills Eyes: no blind spots and no diplopia Ear, Nose, Mouth, Throat: no ear pain and no hearing loss Respiratory: no cough and no dyspnea Cardiovascular: no chest pain and no palpitations Gastrointestinal: no constipation and no diarrhea/loose stools Genitourinary: no urinary urgency and no urinary incontinence Musculoskeletal: no muscle weakness and no muscle atrophy Integumentary: no rash and no lesions Neurologic: as per Subjective / HPI Psychiatric: no behavioral changes, no depression, no abnormal sleep pattern and no anxiety Hematologic / Lymphatic: no easy bruising and no lymphadenopathy Exam (Neuro) Constitutional: well developed and well nourished; no acute distress Eyes: normal visual clay by confrontation, PERRL, normal accommodation and EOM intact bilaterally; no fundoscopic abnormality, no nystagmus and no papilledema Cardiovascular: Vessels: normal carotid upstroke; no carotid bruit Neurologic: Oriented to:: Person, Place and Time Memory: Short Term Intact and Remote Intact Attention: Span Intact and Concentration Intact Language: Naming Objects and Repeating Phrases Speech Fluency: Dysarthria (mild) and Dysfluency (mild) Speech Aphasia: negative Aphasia Fund of Knowledge: Current Events, Past History and Vocabulary Cranial Nerves: Normal II (Visual clay full to confrontation, visual acuity normal), III, IV, (Pupils equal round reactive to light and accommodation, eye movements normal), V (Facial sensation intact), VII (There is no facial droop or weakness), VIII (Hearing intact), IX, X (Palate elevates to midline), XI (Shoulder shrug intact) and XII (Tongue protrudes to midline) Motor Strength: Normal Lower Extremities; negative Normal Upper Extremities or Pronator Drift Motor Tone: Normal Lower Extremities and Normal Upper Extremities Muscle Bulk/Involuntary Movements: No Involuntary Movements; negative Muscle Atrophy Sensation: Light Touch Intact, Pain/Temperature Intact, Vibration Intact and Proprioception Intact Coordination: Normal; negative Limited Balance, Dysdiadochokinesia, Finger-Nose Abnormal or Heel-Hatch Abnormal Deep Tendon Reflexes: Rt Triceps: 1+, Lt Triceps: 1+, Rt Biceps: 1+, Lt Biceps: 1+, Rt Brachioradialis: 1+, Lt Brachioradialis: 1+, Rt Patellar: 1+, Lt Patellar: 1+, Rt Ankle: 1+ and Lt Ankle: 1+ Special Tests: negative Babinski Present Details: Gait not tested in context of patient's current medical/neurological status. Patient does have mild weakness of the right hand, most notable for fine finger movements with impaired facility. She is rather slow with [id number] bilaterally. She does not have an obvious pronator drift. She does not have an obvious facial droop. Results & Data ([facility]) Vital Signs (Past 12 Hours) Vital Signs Temp Pulse Pulse Pulse Resp BP BP 01/20/21 08:07 36.3 C L 84 18 129/74 01/20/21 07:36 84 17 01/20/21 04:16 36.5 C 16 129/79 01/20/21 03:10 91 H 19 01/20/21 00:17 36.9 C 90 18 128/84 01/19/21 23:55 85 Pulse Ox 01/20/21 08:07 96 01/20/21 07:36 95 01/20/21 04:16 95 01/20/21 03:10 93 01/20/21 00:17 96 01/19/21 23:55 Laboratory Results WBC 8.61, hemoglobin 16.8, hematocrit 49.7, platelet count 248, sodium 137, potassium 3.8, BUN 17, creatinine 1.34, glucose 296, hemoglobin A1c 10.6, calcium 8.8, magnesium 1.6, troponin less than 0.015, triglycerides 313, cholesterol 239, LDL 136, VLDL 63, HDL [address] of the head, CT angiography of the head and neck, and brain MRI are as described in the history of present illness. An electrocardiogram reveals a normal sinus rhythm, 90 bpm. There is evidence of inferior infarct. Coding Level of Care Code 65912 Initial In Care Lvl 3 Diagnoses Stroke-like symptoms R29.90 Cerebrovascular disease I67.9 Cerebral aneurysm without rupture I67.1 Carotid artery dissection I77.71
[2021-01-20] MEDS ORDERED: PHARMACY GLYCEMIC MGMT CONSULT PRN (13:32)
[2021-01-20] MEDS ORDERED: Nursing to Pharmacy Communication SCH (13:45)
[2021-01-20] MEDS ORDERED: INSULIN DETEMIR FLEXPEN/FLEX TOUCH 100 UNITS/ML 3ML SC ONE (14:00)
[2021-01-20] MEDS ORDERED: INSULIN ASPART 100 UNITS/ML 3 ML PEN SC ONE (14:00)
--- NOTE | 2021-01-20 14:10 | Pharmacy Report ---
Pharmacy Glycemic Short Note 2 - Date of Service January 20, 2021 - Glycemic Short BSG Results (Last 24 hours): 01/19/21 01/20/21 01/20/21 21:52 00:09 05:24 Glucose POC Glucose 310 H* 245 H 302 H* 01/20/21 01/20/21 05:31 11:05 Glucose 296 H POC Glucose 275 H OUTPATIENT ANTIDIABETIC REGIMEN: * Levemir 35 units SC BID * Novolog 20 units SC TIDM * HbA1c: 10.6% (01/20/21) ASSESSMENT: * RS is an 80 year old female who presented to ED last evening with right arm weakness and slurred speech * Suspected TIA * BSGs have been significantly elevated since admission, ranging 245-310 mg/dL * Covered with Novolog only overnight * Patient was NPO this morning, now diet ordered with lunch * Pharmacy consulted for glycemic management this afternoon for BSG of 275 mg/dL * Will add on basal, tighten Novolog significantly, and add one-time IV insulin bolus PLAN FOR INPATIENT GLYCEMIC CONTROL: * Basal insulin * Levemir 50 units SQ x 1 * Reassess in AM * Bolus insulin * NovoLog per scale ACHS or Q6hrs while NPO * Goal Range: Low 110 mg/dL - High 140 mg/dL * Correction Factor: 20 mg/dL/unit * Nutritional / Prandial insulin per carb ratio of 1 unit per 7 grams CHO consumed * checks with same parameters PLAN FOR DISCHARGE: * to be determined
[2021-01-20] MEDS ORDERED: INSULIN HUMAN REGULAR PER UNIT 8 UNITS in SYRINGE 7.92 ML IV ONE (15:00)
[2021-01-20] MEDS ORDERED: STROKE PATIENT DISCHARGE STA (15:37)
--- NOTE | 2021-01-20 16:34 | Pharmacy Report ---
Pharmacist Stroke Counseling - Date of Service January 20, 2021 - Scope: Pharmacy has been consulted to provide medication discharge counseling for this patient admitted with transient ischemic attack as per the Pharmacist Discharge Counseling for Stroke Patients Protocol. - Medications on Discharge: Home Medications - Action: The above medications, specifically ones for stroke treatment/prophylaxis, have been reviewed in detail with the patient and/or patient dental detail representative(s) prior to discharge. This includes indication, common adverse reactions, drug interactions, and medication administration. Medication counseling has been employed using the teach-back method to ensure understanding. Patient was very hesitant to discuss medication changes. She wanted Dr De La Cruz to be involved in these decisions. She stated she had not seen Dr Marlow today to discuss these changes on discharge. I did discuss the medication changes per Dr Marlow's discharge plan and advised the patient discuss her concerns w/ Dr Marlow and Dr De La Cruz. Much time was spent discussing Eliquis. We also discussed the need to discontinue Clopidogrel/Plavix on discharge. Encouraged medication compliance as she admits to not taking her meds due to frustration w/ cancer diagnosis. She stated she would try to comply with the medication regimen prescribed. She said she has a caregiver and I asked that she provide the medicine tech with her discharge instructions so that her medications could be updated. All her questions were answered. - Outcome: The patient and/or patient dental detail representative(s) have demonstrated understanding of the medications. Additional comments: [] Thank you for allowing pharmacy to be involved in the care of this patient. Please call [phone] with any additional questions
[2021-01-20] MEDS: OXYBUTYNIN CHLORIDE XL 5 MG TABCR PO SCH (20:34)
[2021-01-20] MEDS: ROSUVASTATIN CALCIUM 20 MG TAB PO SCH (20:35)
--- NOTE | 2021-01-20 22:07 | Hospitalist Progress Note ---
Date of Service January 20, 2021 Assessment & Plan (1) Chronic kidney disease, stage 3: Plan: 80 y/o F Hx HLD, DM II, hypothyroidism, obese, PA, atrial tachycardia, CVA 2020, CLL, breast CA - recently completed radiation therapy. The pt developed impaired coordination and speech the prior evening. She states she was having difficulty feeding herself, and that her balance was off as well. Her symptoms persisted when she woke up, prompting her to attend the ER. Initial imaging including a CT, CTA head/neck were negative for acute findings. Labs are notable for erythrocytosis which is chronic, and impaired but stable renal function. 1) Neurological deficits - signs are more cerebellar than motor cortex, however, no abnormalities are showing on CT/CTA. We will proceed to MRI w/wo contrast as mets would be in the differential. She is already receiving ASA and Plavix. She was out of the window for TPA. Her cardiac status is a bit unclear. There is AF or flutter in the chart, however, notes form cardiology state "atrial tachycardia" and she currently has a loop recorder. If a thrombus can be confirmed, it may be reasonable to anticoagulate her, although her aneurysm would have to be considered. She is assigned to telemetry with neuro checks. She will continue her statin. MRI is negative for stroke, hoever showing extensive chronic cerebrovascular disease. Granddaughter states she is having signs of dementia, may benefit from outpatient followup. Given that this is likely vascular, doubt she willl benfit from aricept. Will add eliquis and stop plavix. 2) DM II - sliding scale 3) Hypothyroidism - cont Synthroid 4) PA - CPAP 5) HLD - statin 6) Breast CA - follow-up as outpt Full code - SCDs Total time for this admit including review of labs, meds, imaging, records - discussion with pt and ER attending - 53 min (2) Chronic obstructive pulmonary disease: (3) CLL (chronic lymphocytic leukemia): (4) Diabetes mellitus type 2, uncontrolled: (5) Hyperlipidemia: (6) Hypothyroidism: (7) Stroke: Admission and Anticipated Discharge Date Admission Date: January 20, 2021 Subjective Patient reports feeling better. Updated granddaughter on the phone. Review of Systems Review of Systems: All systems reviewed & are unremarkable except as noted in HPI & below Physical Exam Physical Exam: General: AAO x 3, no distress ENT: No erythema or exudates, no thrush Eyes: YVONNE, EOMI Head and neck: Normocephalic, atraumatic, No JVD, neck is supple. Chest/heart: Nontender, S1,2, RRR, no murmurs, no gallops Lungs: CTAB, no wheezing or crackles Abdomen: Nontender, nondistended, BS+ Neuro: AAO x 3, difficulty initiating speech and some stuttering although no slurring is observed, weakness and shaking is present BL when testing for drift. Juvenile Court Judge is intact BL. Musculoskeletal: No joint inflammation, muscle tenderness, FROM Skin: No acute rashes or ulcers Extremities: No clubbing, cyanosis, edema Results & Data Results & Data ([facility]) Vital Signs (Past 12 Hours) Vital Signs Temp Pulse Pulse Pulse Pulse Resp Resp 01/20/21 19:06 36.6 C 81 18 01/20/21 16:35 91 H 87 97 H 20 01/20/21 16:32 36.7 C 84 16 01/20/21 12:02 36.6 C 85 20 Resp Resp BP BP Pulse Ox Pulse Ox Pulse Ox 01/20/21 19:06 114/71 93 01/20/21 16:35 18 19 91 97 01/20/21 16:32 124/85 96 01/20/21 12:02 120/75 91 Pulse Ox 01/20/21 19:06 01/20/21 16:35 95 01/20/21 16:32 01/20/21 12:02 PG Care Time/CCT Total # of Minutes Spent Total Time Spent with Patient: Total time spent is greater than 50% in coordination of care (as documented) at patient's floor/unit and/or counseling patient: Coding Level of Care Code 38246 Subseq Hosp Care Lvl 3 Diagnoses Chronic kidney disease, stage 3 N18.32 Chronic kidney disease stage 3 subtype: stage 3b (GFR 30-44) Chronic obstructive pulmonary disease J44.9 COPD type: unspecified COPD CLL (chronic lymphocytic leukemia) C91.10 Diabetes mellitus type 2, uncontrolled E11.65 Coma presence: without coma Hyperlipidemia E78.2 Hyperlipidemia type: mixed hyperlipidemia Hypothyroidism E03.9 Hypothyroidism type: unspecified Stroke I63.9 Time Spent (min) 35 (1) Chronic kidney disease, stage 3 Chronic kidney disease stage 3 subtype: stage 3b (GFR 30-44) Qualified Code(s): N18.32 - Chronic kidney disease, stage 3b (2) Hyperlipidemia Hyperlipidemia type: mixed hyperlipidemia Qualified Code(s): E78.2 - Mixed hyperlipidemia (3) Hypothyroidism Hypothyroidism type: unspecified Qualified Code(s): E03.9 - Hypothyroidism, unspecified (4) Diabetes mellitus type 2, uncontrolled Coma presence: without coma (5) Chronic obstructive pulmonary disease COPD type: unspecified COPD Qualified Code(s): J44.9 - Chronic obstructive pulmonary disease, unspecified
[2021-01-21] MEDS: INSULIN ASPART 100 UNITS/ML 3 ML PEN SC SCH ×6 (01:08→21:53)
[2021-01-21] MEDS: LEVOTHYROXINE SODIUM 75 MCG TABLET PO SCH (05:47)
[2021-01-21] MEDS: LORazepam 0.5 MG TAB PO PRN ×3 (05:49→20:48)
[2021-01-21 05:56] LABS: Basophils # (auto) 0.01 K/uL (0-0.2); Basophils % (auto) 0.1 %; Eosinophils # (auto) 0.24 K/uL (0-0.5); Eosinophils % (auto) 3.4 %; Hematocrit (blood only) 49.3 % (37-47); Hemoglobin 16.6 g/dL (12.0-16.0); Immature Granulocytes # (auto) 0.01 K/uL (0.00-0.02); Immature Granulocytes % (auto) 0.1 %; Lymphocytes # (auto) 0.94 K/uL (1.2-3.4); Lymphocytes % (auto) 13.4 %; Mean Corpuscular Hemoglobin 31.6 pg (25-34); Mean Corpuscular Hgb Conc 33.7 g/dL (32-36); Mean Corpuscular Volume 93.9 fL (80-100); Mean Platelet Volume 11.5 fL (7.4-10.4); Monocytes # (auto) 0.84 K/uL (0.11-0.59); Monocytes % (auto) 11.9 %; Neutrophils # (auto) 4.99 K/uL (1.4-6.5); Neutrophils % (auto) 71.1 %; Platelet Count 243 K/uL (130-400); RDW Coefficient of Variation 14.5 % (11.5-14.5); RDW Standard Deviation 49.7 fL (36.4-46.3); Red Blood Count 5.25 M/uL (4.2-5.4); White Blood Count 7.03 K/uL (4.8-10.8)
[2021-01-21 06:30] LABS: BUN Creatinine Ratio 14.9 (10-20); Calcium 9.1 mg/dl (8.5-10.1); Est GFR (African American) 45.3 ml/min; Est GFR (Non-African American) 39.1 ml/min; Potassium 3.9 mmol/L (3.5-5.1)
[2021-01-21] MEDS: CLOPIDOGREL BISULFATE 75 MG TAB PO SCH (08:40)
[2021-01-21] MEDS: VENLAFAXINE HCL XR 150 MG CAPXR PO SCH ×3 (08:41→21:53)
[2021-01-21] MEDS: ASPIRIN 81 MG ECTAB PO SCH (08:41)
[2021-01-21] MEDS: GABAPENTIN 300 MG CAP PO SCH ×3 (08:41→21:53)
[2021-01-21] MEDS: SILVER SULFADIAZINE 1% CR 50 GM JAR TOP SCH ×2 (08:42→20:49)
[2021-01-21] MEDS ORDERED: INSULIN DETEMIR FLEXPEN/FLEX TOUCH 100 UNITS/ML 3ML SC SCH (09:00)
--- NOTE | 2021-01-21 13:09 | Pharmacy Report ---
Pharmacy Glycemic Short Note 2 - Date of Service January 21, 2021 - Glycemic Short BSG Results (Last 24 hours): 01/20/21 01/20/21 01/20/21 14:09 14:11 16:11 Glucose POC Glucose 323 H* 341 H* 103 H 01/20/21 01/21/21 01/21/21 20:29 01:03 04:21 Glucose POC Glucose 115 H 128 H 113 H 01/21/21 01/21/21 01/21/21 05:24 07:53 11:33 Glucose 116 H POC Glucose 114 H 138 H OUTPATIENT ANTIDIABETIC REGIMEN: * Levemir 35 units SC BID * Novolog 20 units SC TIDM * HbA1c: 10.6% (01/20/21) ASSESSMENT: 01/21/21 * BSGs trended down nicely following glycemic consult * Received 88 units of insulin (Levemir 50 units, Novolog 30 units, IV insulin 8 units) * Fasting BSG of 114 mg/dL - will scale Levemir today 01/20/21 * RS is an 80 year old female who presented to ED last evening with right arm weakness and slurred speech * Suspected TIA * BSGs have been significantly elevated since admission, ranging 245-310 mg/dL * Covered with Novolog only overnight * Patient was NPO this morning, now diet ordered with lunch * Pharmacy consulted for glycemic management this afternoon for BSG of 275 mg/dL * Will add on basal, tighten Novolog significantly, and add one-time IV insulin bolus PLAN FOR INPATIENT GLYCEMIC CONTROL: * Basal insulin * Levemir 35 units SC qAM * Levemir 15-35 units SC HS (see EHR for details) * Bolus insulin - loosen * NovoLog per scale ACHS or Q6hrs while NPO * Goal Range: Low 110 mg/dL - High 140 mg/dL * Correction Factor: 25 mg/dL/unit * Nutritional / Prandial insulin per carb ratio of 1 unit per 8 grams CHO consumed
--- NOTE | 2021-01-21 16:47 | Electrocardiogram Report ---
Test Reason : Blood Pressure : / mmHG Vent. Rate : 090 BPM Atrial Rate : 090 BPM P-R Int : 176 ms QRS Dur : 060 ms QT Int : 404 ms P-R-T Axes : -12 -20 057 degrees QTc Int : 494 ms Normal sinus rhythm Inferior infarct (cited on or before 05-DEC-2019) Abnormal ECG When compared with ECG of 09-APR-2020 13:15, Premature atrial complexes are no longer Present Confirmed by Lauro Hernandez ([id number]) on 01/21/2021 4:46:58 PM Referred By: Confirmed By:Lauro Hernandez
[2021-01-21] MEDS ORDERED: QUEtiapine FUMARATE 25 MG TABLET PO ONE (17:55)
[2021-01-21] MEDS: OXYBUTYNIN CHLORIDE XL 5 MG TABCR PO SCH ×2 (20:48→21:53)
[2021-01-21] MEDS: INSULIN DETEMIR FLEXPEN/FLEX TOUCH 100 UNITS/ML 3ML SC SCH (20:48)
[2021-01-21] MEDS: ROSUVASTATIN CALCIUM 20 MG TAB PO SCH ×2 (20:48→21:53)
--- NOTE | 2021-01-21 21:48 | Hospitalist Progress Note ---
Date of Service January 21, 2021 Assessment & Plan (1) Chronic kidney disease, stage 3: Plan: 80 y/o F Hx HLD, DM II, hypothyroidism, obese, PA, atrial tachycardia, CVA 2020, CLL, breast CA - recently completed radiation therapy. The pt developed impaired coordination and speech the prior evening. She states she was having difficulty feeding herself, and that her balance was off as well. Her symptoms persisted when she woke up, prompting her to attend the ER. Initial imaging including a CT, CTA head/neck were negative for acute findings. Labs are notable for erythrocytosis which is chronic, and impaired but stable renal function. 1) Neurological deficits - signs are more cerebellar than motor cortex, however, no abnormalities are showing on CT/CTA. We will proceed to MRI w/wo contrast as mets would be in the differential. She is already receiving ASA and Plavix. She was out of the window for TPA. Her cardiac status is a bit unclear. There is AF or flutter in the chart, however, notes form cardiology state "atrial tachycardia" and she currently has a loop recorder. If a thrombus can be confirmed, it may be reasonable to anticoagulate her, although her aneurysm would have to be considered. She is assigned to telemetry with neuro checks. She will continue her statin. MRI is negative for stroke, hoever showing extensive chronic cerebrovascular disease. Granddaughter states she is having signs of dementia, may benefit from outpatient followup. Given that this is likely vascular, doubt she willl benfit from aricept. Will add eliquis and stop plavix. Patient is having acute delirium likely due to her dementia. Will order one time dose of seroquel. 2) DM II - sliding scale 3) Hypothyroidism - cont Synthroid 4) PA - CPAP 5) HLD - statin 6) Breast CA - follow-up as outpt Full code - SCDs Total time for this admit including review of labs, meds, imaging, records - discussion with pt and ER attending - 53 min (2) Chronic obstructive pulmonary disease: (3) CLL (chronic lymphocytic leukemia): (4) Diabetes mellitus type 2, uncontrolled: (5) Hyperlipidemia: (6) Hypothyroidism: (7) Stroke: Admission and Anticipated Discharge Date Admission Date: January 20, 2021 Subjective 80 yo female was confused throughout the day. Review of Systems Review of Systems: All systems reviewed & are unremarkable except as noted in HPI & below Physical Exam 2 Physical Exam: General: AAO x 2, no distress ENT: No erythema or exudates, no thrush Eyes: YVONNE, EOMI Head and neck: Normocephalic, atraumatic, No JVD, neck is supple. Chest/heart: Nontender, S1,2, RRR, no murmurs, no gallops Lungs: CTAB, no wheezing or crackles Abdomen: Nontender, nondistended, BS+ Neuro: AAO x 3, difficulty initiating speech and some stuttering although no slurring is observed, weakness and shaking is present BL when testing for drift. In Store Marketing Representative is intact BL. Musculoskeletal: No joint inflammation, muscle tenderness, FROM Skin: No acute rashes or ulcers Extremities: No clubbing, cyanosis, edema Results & Data Results & Data ([facility]) Vital Signs (Past 12 Hours) Vital Signs Temp Pulse Pulse Resp BP Pulse Ox 01/21/21 19:13 36.8 C 93 H 18 123/74 97 01/21/21 14:51 36.5 C 82 20 125/65 93 01/21/21 11:08 36.3 C L 79 20 119/69 95 01/21/21 10:47 78 PG Care Time/CCT Total # of Minutes Spent Total Time Spent with Patient: Total time spent is greater than 50% in coordination of care (as documented) at patient's floor/unit and/or counseling patient: Coding Level of Care Code 76868 Subseq Hosp Care Lvl 2 Diagnoses Chronic kidney disease, stage 3 N18.32 Chronic kidney disease stage 3 subtype: stage 3b (GFR 30-44) Chronic obstructive pulmonary disease J44.9 COPD type: unspecified COPD CLL (chronic lymphocytic leukemia) C91.10 Diabetes mellitus type 2, uncontrolled E11.65 Coma presence: without coma Hyperlipidemia E78.2 Hyperlipidemia type: mixed hyperlipidemia Hypothyroidism E03.9 Hypothyroidism type: unspecified Stroke I63.9 Time Spent (min) 25 (1) Chronic kidney disease, stage 3 Chronic kidney disease stage 3 subtype: stage 3b (GFR 30-44) Qualified Code(s): N18.32 - Chronic kidney disease, stage 3b (2) Chronic obstructive pulmonary disease COPD type: unspecified COPD Qualified Code(s): J44.9 - Chronic obstructive pulmonary disease, unspecified (3) Diabetes mellitus type 2, uncontrolled Coma presence: without coma (4) Hyperlipidemia Hyperlipidemia type: mixed hyperlipidemia Qualified Code(s): E78.2 - Mixed hyperlipidemia (5) Hypothyroidism Hypothyroidism type: unspecified Qualified Code(s): E03.9 - Hypothyroidism, unspecified
[2021-01-22] MEDS: LEVOTHYROXINE SODIUM 75 MCG TABLET PO SCH (05:56)
[2021-01-22 06:25] LABS: Basophils # (auto) 0.01 K/uL (0-0.2); Basophils % (auto) 0.2 %; Eosinophils # (auto) 0.31 K/uL (0-0.5); Eosinophils % (auto) 4.8 %; Hematocrit (blood only) 47.1 % (37-47); Hemoglobin 15.6 g/dL (12.0-16.0); Immature Granulocytes # (auto) 0.02 K/uL (0.00-0.02); Immature Granulocytes % (auto) 0.3 %; Lymphocytes # (auto) 0.97 K/uL (1.2-3.4); Lymphocytes % (auto) 15.1 %; Mean Corpuscular Hemoglobin 30.8 pg (25-34); Mean Corpuscular Hgb Conc 33.1 g/dL (32-36); Mean Corpuscular Volume 93.1 fL (80-100); Mean Platelet Volume 11.6 fL (7.4-10.4); Monocytes # (auto) 0.73 K/uL (0.11-0.59); Monocytes % (auto) 11.4 %; Neutrophils # (auto) 4.37 K/uL (1.4-6.5); Neutrophils % (auto) 68.2 %; Platelet Count 236 K/uL (130-400); RDW Coefficient of Variation 14.7 % (11.5-14.5); RDW Standard Deviation 49.4 fL (36.4-46.3); Red Blood Count 5.06 M/uL (4.2-5.4); White Blood Count 6.41 K/uL (4.8-10.8)
[2021-01-22 07:01] LABS: Calcium 9.1 mg/dl (8.5-10.1)
[2021-01-22 07:13] LABS: BUN Creatinine Ratio 19.2 (10-20); Creatinine Clr Calc Pharmacy 41.5 ml/min; Est GFR (African American) 53.7 ml/min; Est GFR (Non-African American) 46.4 ml/min
[2021-01-22] MEDS: INSULIN ASPART 100 UNITS/ML 3 ML PEN SC SCH ×4 (08:18→20:36)
[2021-01-22] MEDS: INSULIN DETEMIR FLEXPEN/FLEX TOUCH 100 UNITS/ML 3ML SC SCH ×2 (08:19→20:36)
[2021-01-22] MEDS: ASPIRIN 81 MG ECTAB PO SCH (08:20)
[2021-01-22] MEDS: CLOPIDOGREL BISULFATE 75 MG TAB PO SCH (08:20)
[2021-01-22] MEDS: SILVER SULFADIAZINE 1% CR 50 GM JAR TOP SCH ×2 (08:20→20:40)
[2021-01-22] MEDS: GABAPENTIN 300 MG CAP PO SCH ×2 (08:20→20:40)
[2021-01-22] MEDS: VENLAFAXINE HCL XR 150 MG CAPXR PO SCH ×2 (08:21→20:39)
[2021-01-22] MEDS: ROSUVASTATIN CALCIUM 20 MG TAB PO SCH (20:39)
[2021-01-22] MEDS: OXYBUTYNIN CHLORIDE XL 5 MG TABCR PO SCH (20:40)
--- NOTE | 2021-01-22 22:21 | Hospitalist Progress Note ---
Date of Service January 22, 2021 Assessment & Plan (1) Chronic kidney disease, stage 3: Plan: 80 y/o F Hx HLD, DM II, hypothyroidism, obese, PA, atrial tachycardia, CVA 2020, CLL, breast CA - recently completed radiation therapy. The pt developed impaired coordination and speech the prior evening. She states she was having difficulty feeding herself, and that her balance was off as well. Her symptoms persisted when she woke up, prompting her to attend the ER. Initial imaging including a CT, CTA head/neck were negative for acute findings. Labs are notable for erythrocytosis which is chronic, and impaired but stable renal function. 1) Neurological deficits - signs are more cerebellar than motor cortex, however, no abnormalities are showing on CT/CTA. We will proceed to MRI w/wo contrast as mets would be in the differential. She is already receiving ASA and Plavix. She was out of the window for TPA. Her cardiac status is a bit unclear. There is AF or flutter in the chart, however, notes form cardiology state "atrial tachycardia" and she currently has a loop recorder. If a thrombus can be confirmed, it may be reasonable to anticoagulate her, although her aneurysm would have to be considered. She is assigned to telemetry with neuro checks. She will continue her statin. MRI is negative for stroke, hoever showing extensive chronic cerebrovascular disease. Granddaughter states she is having signs of dementia, may benefit from outpatient followup. Given that this is likely vascular, doubt she willl benfit from aricept. Will add eliquis and stop plavix. Less delirius. will continue to monitor. Will order one time dose of seroquel. 2) DM II - sliding scale 3) Hypothyroidism - cont Synthroid 4) PA - CPAP 5) HLD - statin 6) Breast CA - follow-up as outpt Full code - SCDs (2) Chronic obstructive pulmonary disease: (3) CLL (chronic lymphocytic leukemia): (4) Diabetes mellitus type 2, uncontrolled: (5) Hyperlipidemia: (6) Hypothyroidism: (7) Stroke: Admission and Anticipated Discharge Date Admission Date: January 20, 2021 Subjective Patient appears tp be doing better, she is asking why she is confused.. Review of Systems Review of Systems: All systems reviewed & are unremarkable except as noted in HPI & below Physical Exam Physical Exam: General: AAO x 2, no distress ENT: No erythema or exudates, no thrush Eyes: YVONNE, EOMI Head and neck: Normocephalic, atraumatic, No JVD, neck is supple. Chest/heart: Nontender, S1,2, RRR, no murmurs, no gallops Lungs: CTAB, no wheezing or crackles Abdomen: Nontender, nondistended, BS+ Neuro: AAO x 3, difficulty initiating speech and some stuttering although no slurring is observed, weakness and shaking is present BL when testing for drift. Ed Case Manager is intact BL. Musculoskeletal: No joint inflammation, muscle tenderness, FROM Skin: No acute rashes or ulcers Extremities: No clubbing, cyanosis, edema Results & Data Results & Data ([facility]) Vital Signs (Past 12 Hours) Vital Signs Temp Pulse Resp BP Pulse Ox 01/22/21 19:09 36.6 C 85 16 156/71 H 95 01/22/21 16:08 37.0 C 76 16 146/82 H 92 01/22/21 12:09 36.5 C 74 16 119/72 96 PG Care Time/CCT Total # of Minutes Spent Total Time Spent with Patient: Total time spent is greater than 50% in coordination of care (as documented) at patient's floor/unit and/or counseling patient: Coding Level of Care Code 69335 Subseq Hosp Care Lvl 2 Diagnoses Chronic kidney disease, stage 3 N18.32 Chronic kidney disease stage 3 subtype: stage 3b (GFR 30-44) Chronic obstructive pulmonary disease J44.9 COPD type: unspecified COPD CLL (chronic lymphocytic leukemia) C91.10 Diabetes mellitus type 2, uncontrolled E11.65 Coma presence: without coma Hyperlipidemia E78.2 Hyperlipidemia type: mixed hyperlipidemia Hypothyroidism E03.9 Hypothyroidism type: unspecified Stroke I63.9 Time Spent (min) 25 (1) Chronic kidney disease, stage 3 Chronic kidney disease stage 3 subtype: stage 3b (GFR 30-44) Qualified Code(s): N18.32 - Chronic kidney disease, stage 3b (2) Hyperlipidemia Hyperlipidemia type: mixed hyperlipidemia Qualified Code(s): E78.2 - Mixed hyperlipidemia (3) Hypothyroidism Hypothyroidism type: unspecified Qualified Code(s): E03.9 - Hypothyroidism, unspecified (4) Diabetes mellitus type 2, uncontrolled Coma presence: without coma (5) Chronic obstructive pulmonary disease COPD type: unspecified COPD Qualified Code(s): J44.9 - Chronic obstructive pulmonary disease, unspecified
[2021-01-23] MEDS: LEVOTHYROXINE SODIUM 75 MCG TABLET PO SCH (06:11)
[2021-01-23] MEDS: INSULIN ASPART 100 UNITS/ML 3 ML PEN SC SCH ×4 (08:26→20:50)
[2021-01-23] MEDS: GABAPENTIN 300 MG CAP PO SCH ×2 (08:28→20:21)
[2021-01-23] MEDS: VENLAFAXINE HCL XR 150 MG CAPXR PO SCH ×2 (08:28→20:15)
[2021-01-23] MEDS: SILVER SULFADIAZINE 1% CR 50 GM JAR TOP SCH ×2 (08:29→20:32)
[2021-01-23] MEDS: CLOPIDOGREL BISULFATE 75 MG TAB PO SCH (08:29)
[2021-01-23] MEDS: ASPIRIN 81 MG ECTAB PO SCH (08:29)
[2021-01-23] MEDS: INSULIN DETEMIR FLEXPEN/FLEX TOUCH 100 UNITS/ML 3ML SC SCH ×2 (08:29→20:49)
[2021-01-23] MEDS: OXYBUTYNIN CHLORIDE XL 5 MG TABCR PO SCH (08:29)
[2021-01-23] MEDS: ROSUVASTATIN CALCIUM 20 MG TAB PO SCH (20:15)
--- NOTE | 2021-01-23 20:48 | Hospitalist Progress Note ---
Date of Service January 23, 2021 Assessment & Plan (1) Chronic kidney disease, stage 3: Plan: 80 y/o F Hx HLD, DM II, hypothyroidism, obese, PA, atrial tachycardia, CVA 2019, CLL, breast CA - recently completed radiation therapy. The pt developed impaired coordination and speech the prior evening. She states she was having difficulty feeding herself, and that her balance was off as well. Her symptoms persisted when she woke up, prompting her to attend the ER. Initial imaging including a CT, CTA head/neck were negative for acute findings. Labs are notable for erythrocytosis which is chronic, and impaired but stable renal function. 1) Neurological deficits - signs are more cerebellar than motor cortex, however, no abnormalities are showing on CT/CTA. We will proceed to MRI w/wo contrast as mets would be in the differential. She is already receiving ASA and Plavix. She was out of the window for TPA. Her cardiac status is a bit unclear. There is AF or flutter in the chart, however, notes form cardiology state "atrial tachycardia" and she currently has a loop recorder. If a thrombus can be confirmed, it may be reasonable to anticoagulate her, although her aneurysm would have to be considered. She is assigned to telemetry with neuro checks. She will continue her statin. MRI is negative for stroke, hoever showing extensive chronic cerebrovascular disease. Granddaughter states she is having signs of dementia, may benefit from outpatient followup. Given that this is likely vascular, doubt she willl benefit from aricept. Will add eliquis and stop plavix. Less delirius. will continue to monitor. Patient only required one time dose of seroquel during this hospital stay. Awaiting placement 2) DM II - sliding scale 3) Hypothyroidism - cont Synthroid 4) PA - CPAP 5) HLD - statin 6) Breast CA - follow-up as outpt Full code - SCDs (2) Chronic obstructive pulmonary disease: (3) CLL (chronic lymphocytic leukemia): (4) Diabetes mellitus type 2, uncontrolled: (5) Hyperlipidemia: Plan: continue high intensity statin (6) Hypothyroidism: Plan: continue levothyroxine (7) Stroke: Plan: chronic Cerebrovascular disease likely cause of slurred speech and R arm weakness 80 yo female presenting with RUE weakness and slurred speech. MRI brain with extensive chronic cerebrovascular disease, no acute or subacute stroke, : continue low dose ASA, change plavix to eliquis, neurology consult, MRI brain, CTA head/neck Risk Factor(s): age, uncontrolled DM, CLL, COPD, CKD stage III, HTN Admission and Anticipated Discharge Date Admission Date: January 20, 2021 Subjective Patient reports no new symptoms. Review of Systems Review of Systems: All systems reviewed & are unremarkable except as noted in HPI & below Physical Exam Physical Exam: General: AAO x 2, no distress ENT: No erythema or exudates, no thrush Eyes: YVONNE, EOMI Head and neck: Normocephalic, atraumatic, No JVD, neck is supple. Chest/heart: Nontender, S1,2, RRR, no murmurs, no gallops Lungs: CTAB, no wheezing or crackles Abdomen: Nontender, nondistended, BS+ Neuro: AAO x 3, difficulty initiating speech and some stuttering although no slurring is observed, weakness and shaking is present BL when testing for drift. Clinical Material Handler is intact BL. Musculoskeletal: No joint inflammation, muscle tenderness, FROM Skin: No acute rashes or ulcers Extremities: No clubbing, cyanosis, edema Results & Data Results & Data ([facility]) Vital Signs (Past 12 Hours) Vital Signs Temp Pulse Pulse Resp BP Pulse Ox 01/23/21 19:07 86 01/23/21 15:53 37.1 C 66 16 151/83 H 93 01/23/21 11:57 36.9 C 85 18 126/75 91 PG Care Time/CCT Total # of Minutes Spent Total Time Spent with Patient: Total time spent is greater than 50% in coordination of care (as documented) at patient's floor/unit and/or counseling patient: Coding Level of Care Code 79461 Subseq Hosp Care Lvl 2 Diagnoses Chronic kidney disease, stage 3 N18.32 Chronic kidney disease stage 3 subtype: stage 3b (GFR 30-44) Chronic obstructive pulmonary disease J44.9 COPD type: unspecified COPD CLL (chronic lymphocytic leukemia) C91.10 Diabetes mellitus type 2, uncontrolled E11.65 Coma presence: without coma Hyperlipidemia E78.2 Hyperlipidemia type: mixed hyperlipidemia Hypothyroidism E03.9 Hypothyroidism type: unspecified Stroke I63.9 (1) Chronic kidney disease, stage 3 Chronic kidney disease stage 3 subtype: stage 3b (GFR 30-44) Qualified Code(s): N18.32 - Chronic kidney disease, stage 3b (2) Hyperlipidemia Hyperlipidemia type: mixed hyperlipidemia Qualified Code(s): E78.2 - Mixed hyperlipidemia (3) Hypothyroidism Hypothyroidism type: unspecified Qualified Code(s): E03.9 - Hypothyroidism, unspecified (4) Diabetes mellitus type 2, uncontrolled Coma presence: without coma (5) Chronic obstructive pulmonary disease COPD type: unspecified COPD Qualified Code(s): J44.9 - Chronic obstructive pulmonary disease, unspecified
[2021-01-24] MEDS: LEVOTHYROXINE SODIUM 75 MCG TABLET PO SCH (05:36)
[2021-01-24] MEDS: VENLAFAXINE HCL XR 150 MG CAPXR PO SCH ×2 (08:15→20:20)
[2021-01-24] MEDS: INSULIN DETEMIR FLEXPEN/FLEX TOUCH 100 UNITS/ML 3ML SC SCH ×2 (08:16→20:18)
[2021-01-24] MEDS: SILVER SULFADIAZINE 1% CR 50 GM JAR TOP SCH ×2 (08:16→20:20)
[2021-01-24] MEDS: ASPIRIN 81 MG ECTAB PO SCH (08:16)
[2021-01-24] MEDS: CLOPIDOGREL BISULFATE 75 MG TAB PO SCH (08:16)
[2021-01-24] MEDS: GABAPENTIN 300 MG CAP PO SCH ×2 (08:16→20:19)
[2021-01-24] MEDS: INSULIN ASPART 100 UNITS/ML 3 ML PEN SC SCH ×4 (08:17→20:14)
--- NOTE | 2021-01-24 13:06 | Pharmacy Report ---
Pharmacy Glycemic Short Note 2 - Date of Service January 24, 2021 - Glycemic Short BSG Results (Last 24 hours): 01/23/21 01/23/21 01/24/21 16:45 20:38 07:18 POC Glucose 109 H 107 H 108 H 01/24/21 11:16 POC Glucose 301 H* OUTPATIENT ANTIDIABETIC REGIMEN: * Levemir 35 units SC BID * Novolog 20 units SC TIDM * HbA1c: 10.6% (01/20/21) ASSESSMENT: 01/24/21 * Patient received 67 units of insulin yesterday (50 units of basal and 17 units of bolus) * Patient's BSGs were 146-328-321-107 mg/dL. * Fasting today was 108 mg/dL. Lunch today was 301 mg/dL (not rechecked). * Reduce PM dose of Lantus slightly as fasting BSGs are trending down. * Will continue with Novolog as unsure validity of 301 mg/dL. 01/21/21 * BSGs trended down nicely following glycemic consult * Received 88 units of insulin (Levemir 50 units, Novolog 30 units, IV insulin 8 units) * Fasting BSG of 114 mg/dL - will scale Levemir today 01/20/21 * RS is an 80 year old female who presented to ED last evening with right arm weakness and slurred speech * Suspected TIA * BSGs have been significantly elevated since admission, ranging 245-310 mg/dL * Covered with Novolog only overnight * Patient was NPO this morning, now diet ordered with lunch * Pharmacy consulted for glycemic management this afternoon for BSG of 275 mg/dL * Will add on basal, tighten Novolog significantly, and add one-time IV insulin bolus PLAN FOR INPATIENT GLYCEMIC CONTROL: * Basal insulin * Levemir 35 units SC qAM * Levemir 10-15 units SC HS (see EHR for details) * Bolus insulin * NovoLog per scale ACHS or Q6hrs while NPO * Goal Range: Low 110 mg/dL - High 140 mg/dL * Correction Factor: 25 mg/dL/unit * Nutritional / Prandial insulin per carb ratio of 1 unit per 8 grams CHO consumed
--- NOTE | 2021-01-24 15:01 | Hospitalist Progress Note ---
Date of Service January 24, 2021 Assessment & Plan (1) Stroke-like symptoms: Plan: Presented to the hospital with slurred/stuttering speech and gait/balance issues. No acute change on CTA head/neck from 12/05/2019 testing. 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 No aneurysm rupture. 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 - MRI brain on 01/19/2021 showed no acute infarct, but did show moderate atrophy and microvascular changes. - Seen by neuro with recs to optimize meds - Continues to have stuttering speech and gait issues. -> Plan for SNF. (2) Atrial tachycardia: Plan: There was some concern for afib/flutter which would raise her CVA risk and make anticoagulation more appropriate than DAPT for her. HOWEVER, she was seen by Dr. Mccullough on 12/01/2020 where he reports that it appears to be atrial tachycardia, lasts only a few seconds, and only occurs once per month. - Can continue to follow loop recorder while battery lasts - No indication for anticoagulation at this time (3) Diabetes mellitus type 2, uncontrolled: Plan: A1c was 10.6% this admission. Chronically high/uncontrolled. - Continue long-acting and sliding scale insulin - Glycemic pharmacy following (4) Chronic kidney disease, stage 3: Plan: Baseline Cr ~1.1. - Presently at baseline. (5) PA (obstructive sleep apnea): Plan: Per compliance note dated 01/18/2021, she only uses her CPAP about 1/3 of the time, and often only for an hour or so. - Offer hospital CPAP (6) Breast cancer: Plan: Recently had breast nodule removed with completion of radiation. Per oncology note dated 10/01/2020, plan to continue on anastrazole. - Outpatient follow-up (7) Chronic obstructive pulmonary disease: Plan: No shortness of breath or breathing issues presently. - Albterol PRN (8) CLL (chronic lymphocytic leukemia): Plan: No present issues. (9) Hyperlipidemia: Plan: - Continue high intensity statin (10) Hypothyroidism: Plan: TSH was 0.85 in 10/2020. No signs/symptoms of hypo-/hyperthyroidism. - Continue home Synthroid 75 mcg (11) DVT prophylaxis: Plan: SCDs, early ambulation - Low DVT risk per admission calculator Admission and Anticipated Discharge Date Admission Date: January 20, 2021 Subjective Feeling better today. No confusion noted today. Unfortunately, still feels that her gait and her speech are not at baseline. Reports no fevers/chills, chest pain, shortness of breath, abdominal pain, nausea, or vomiting. Physical Exam Constitutional: WD/WN, vitals as above Eyes: EOM intact bilaterally; no conjunctival abnormality ENMT: external ear and nose normal, oropharynx normal Neck: trachea midline, no thyromegaly normal visual inspection Respiratory: normal respiratory effort, lungs clear to auscultation no respiratory distress Cardiovascular: RRR, no murmur, no edema Gastrointestinal (Abdomen): Inspection/Auscultation: abdomen normal to inspection; abdomen not distended Musculoskeletal: no cyanosis or clubbing, extremities motor strength 5/5 Skin: no rashes, warm and dry Neurologic: moves all extremities and awake Speech / Cognition: + abnormal speech (Some stuttering with speech) Psychiatric: Orientation: alert, oriented to person and cooperative Results & Data Results & Data ([facility]) Vital Signs (Past 12 Hours) Vital Signs Temp Pulse Pulse Resp BP Pulse Ox 01/24/21 11:37 87 01/24/21 11:30 36.9 C 95 H 20 123/74 93 01/24/21 08:05 37.0 C 88 20 148/80 H 92 01/24/21 03:07 36.8 C 92 H 18 145/82 H 91 PG Care Time/CCT Total # of Minutes Spent Total Time Spent with Patient: Total time spent is greater than 50% in c oordination of care (as documented) at patient's floor/unit and/or counseling patient: Coding Level of Care Code 51245 Subseq Hosp Care Lvl 3 Diagnoses Chronic kidney disease, stage 3 N18.32 Chronic kidney disease stage 3 subtype: stage 3b (GFR 30-44) Chronic obstructive pulmonary disease J44.9 COPD type: unspecified COPD CLL (chronic lymphocytic leukemia) C91.10 Diabetes mellitus type 2, uncontrolled E11.65 Coma presence: without coma Hyperlipidemia E78.2 Hyperlipidemia type: mixed hyperlipidemia Hypothyroidism E03.9 Hypothyroidism type: unspecified Stroke-like symptoms R29.90 DVT prophylaxis Z29.9 Atrial tachycardia I47.1 PA (obstructive sleep apnea) G47.33 Breast cancer C50.919 (1) Chronic kidney disease, stage 3 Chronic kidney disease stage 3 subtype: stage 3b (GFR 30-44) Qualified Code(s): N18.32 - Chronic kidney disease, stage 3b (2) Chronic obstructive pulmonary disease COPD type: unspecified COPD Qualified Code(s): J44.9 - Chronic obstructive p ulmonary disease, unspecified (3) Diabetes mellitus type 2, uncontrolled Coma presence: without coma (4) Hyperlipidemia Hyperlipidemia type: mixed hyperlipidemia Qualified Code(s): E78.2 - Mixed h yperlipidemia (5) Hypothyroidism Hypothyroidism type: unspecified Qualified Code(s): E03.9 - Hypothyroidism, unspecified
[2021-01-24] MEDS: OXYBUTYNIN CHLORIDE XL 5 MG TABCR PO SCH (20:19)
[2021-01-24] MEDS: ROSUVASTATIN CALCIUM 20 MG TAB PO SCH (20:20)
[2021-01-25] MEDS: LEVOTHYROXINE SODIUM 75 MCG TABLET PO SCH (05:35)
[2021-01-25 07:31] LABS: Hematocrit (blood only) 48.7 % (37-47); Hemoglobin 16.3 g/dL (12.0-16.0); Mean Corpuscular Hemoglobin 31.2 pg (25-34); Mean Corpuscular Hgb Conc 33.5 g/dL (32-36); Mean Corpuscular Volume 93.1 fL (80-100); Mean Platelet Volume 11.3 fL (7.4-10.4); Platelet Count 251 K/uL (130-400); RDW Coefficient of Variation 14.8 % (11.5-14.5); RDW Standard Deviation 50.3 fL (36.4-46.3); Red Blood Count 5.23 M/uL (4.2-5.4); White Blood Count 10.94 K/uL (4.8-10.8)
[2021-01-25 08:00] LABS: BUN Creatinine Ratio 11.3 (10-20); Calcium 8.9 mg/dl (8.5-10.1); Creatinine Clr Calc Pharmacy 33.5 ml/min; Est GFR (African American) 41.7 ml/min; Potassium 3.8 mmol/L (3.5-5.1)
[2021-01-25] MEDS: INSULIN DETEMIR FLEXPEN/FLEX TOUCH 100 UNITS/ML 3ML SC SCH ×2 (08:31→21:25)
[2021-01-25] MEDS: INSULIN ASPART 100 UNITS/ML 3 ML PEN SC SCH ×4 (08:31→21:25)
[2021-01-25] MEDS: SILVER SULFADIAZINE 1% CR 50 GM JAR TOP SCH ×2 (08:32→21:24)
[2021-01-25] MEDS: VENLAFAXINE HCL XR 150 MG CAPXR PO SCH ×2 (08:32→21:24)
[2021-01-25] MEDS: GABAPENTIN 300 MG CAP PO SCH ×2 (08:32→21:24)
[2021-01-25] MEDS: ASPIRIN 81 MG ECTAB PO SCH (08:32)
[2021-01-25] MEDS: CLOPIDOGREL BISULFATE 75 MG TAB PO SCH (08:32)
--- NOTE | 2021-01-25 13:29 | Hospitalist Progress Note ---
Date of Service January 25, 2021 Assessment & Plan (1) Stroke-like symptoms: Plan: Presented to the hospital with slurred/stuttering speech and gait/balance issues. No acute change on CTA head/neck from 12/05/2019 testing. 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 No aneurysm rupture. 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 - MRI brain on 01/19/2021 showed no acute infarct, but did show moderate atrophy and microvascular changes. - Seen by neuro with recs to optimize meds - Continues to have stuttering speech and gait issues. -> Plan for SNF tomorrow. Some improvement today, but still present on exam. (2) Chronic kidney disease, stage 3: Plan: Baseline Cr ~1.1. - Presently with mild acute kidney injury. Appears euvolemic without any identifiable cause. Will encourage good PO intake and get PVR to make sure she's not retaining. (3) Atrial tachycardia: Plan: There was some concern for afib/flutter which would raise her CVA risk and make anticoagulation more appropriate than DAPT for her. HOWEVER, she was seen by Dr. Mccullough on 12/01/2020 where he reports that it appears to be atrial tachycardia, lasts only a few seconds, and only occurs once per month. - Can continue to follow loop recorder while battery lasts - No indication for anticoagulation at this time (4) Diabetes mellitus type 2, uncontrolled: Plan: A1c was 10.6% this admission. Chronically high/uncontrolled. - Continue long-acting and sliding scale insulin - Glycemic pharmacy following -> Sugars have been 115 - 300 in last 24 hours. (5) PA (obstructive sleep apnea): Plan: Per compliance note dated 01/18/2021, she only uses her CPAP about 1/3 of the time, and often only for an hour or so. - Offer hospital CPAP (6) Breast cancer: Plan: Recently had breast nodule removed with completion of radiation. Per oncology note dated 10/01/2020, plan to continue on anastrazole. - Outpatient follow-up (7) Chronic obstructive pulmonary disease: Plan: No shortness of breath or breathing issues presently. - Albterol PRN (8) CLL (chronic lymphocytic leukemia): Plan: No present issues. (9) Hyperlipidemia: Plan: - Continue high intensity statin (10) Hypothyroidism: Plan: TSH was 0.85 in 10/2020. No signs/symptoms of hypo-/hyperthyroidism. - Continue home Synthroid 75 mcg (11) DVT prophylaxis: Plan: SCDs, early ambulation - Low DVT risk per admission calculator Admission and Anticipated Discharge Date Admission Date: January 20, 2021 Subjective Fairly stable today. No confusion noted today. Unfortunately, still feels that her gait and her speech are not at baseline. Slight improvement in the speech at times, but it comes and goes. The gait is improving though. Reports no fevers/chills, chest pain, shortness of breath, abdominal pain, nausea, or vomiting. Physical Exam Constitutional: WD/WN, vitals as above Eyes: EOM intact bilaterally; no conjunctival abnormality ENMT: external ear and nose normal, oropharynx normal Neck: trachea midline, no thyromegaly normal visual inspection Respiratory: normal respiratory effort, lungs clear to auscultation no respiratory distress Cardiovascular: RRR, no murmur, no edema Gastrointestinal (Abdomen): Inspection/Auscultation: abdomen normal to inspection; abdomen not distended Musculoskeletal: no cyanosis or clubbing, extremities motor strength 5/5 Skin: no rashes, warm and dry Neurologic: moves all extremities and awake Speech / Cognition: + abnormal speech (Some stuttering with speech (possibly slightly better today)) Psychiatric: Orientation: alert, oriented to person and cooperative Results & Data Results & Data ([facility]) Vital Signs (Past 12 Hours) Vital Signs Temp Pulse Pulse Resp BP Pulse Ox 01/25/21 11:12 36.8 C 79 16 136/68 93 01/25/21 09:35 79 01/25/21 07:37 36.7 C 76 16 111/69 94 PG Care Time/CCT Total # of Minutes Spent Total Time Spent with Patient: Total time spent is greater than 50% in coordination of care (as documented) at patient's floor/unit and/or counseling patient: Coding Level of Care Code 30556 Subseq Hosp Care Lvl 3 Diagnoses Stroke-like symptoms R29.90 Atrial tachycardia I47.1 Diabetes mellitus type 2, uncontrolled E11.65 Coma presence: without coma Chronic kidney disease, stage 3 N18.32 Chronic kidney disease stage 3 subtype: stage 3b (GFR 30-44) PA (obstructive sleep apnea) G47.33 Breast cancer C50.919 Chronic obstructive pulmonary disease J44.9 COPD type: unspecified COPD CLL (chronic lymphocytic leukemia) C91.10 Hyperlipidemia E78.2 Hyperlipidemia type: mixed hyperlipidemia Hypothyroidism E03.9 Hypothyroidism type: unspecified DVT prophylaxis Z29.9 (1) Diabetes mellitus type 2, uncontrolled Coma presence: without coma (2) Chronic kidney disease, stage 3 Chronic kidney disease stage 3 subtype: stage 3b (GFR 30-44) Qualified Code(s): N18.32 - Chronic kidney disease, stage 3b (3) Chronic obstructive pulmonary disease COPD type: unspecified COPD Qualified Code(s): J44.9 - Chronic obstructive pulmonary disease, unspecified (4) Hyperlipidemia Hyperlipidemia type: mixed hyperlipidemia Qualified Code(s): E78.2 - Mixed hyperlipidemia (5) Hypothyroidism Hypothyroidism type: unspecified Qualified Code(s): E03.9 - Hypothyroidism, unspecified
[2021-01-25] MEDS: OXYBUTYNIN CHLORIDE XL 5 MG TABCR PO SCH (21:24)
[2021-01-25] MEDS: ROSUVASTATIN CALCIUM 20 MG TAB PO SCH (21:24)
[2021-01-26] MEDS: LEVOTHYROXINE SODIUM 75 MCG TABLET PO SCH (06:17)
[2021-01-26 07:52] VITALS: O2SAT 95
[2021-01-26 08:24] LABS: Hematocrit (blood only) 47.3 % (37-47); Mean Corpuscular Hemoglobin 31.5 pg (25-34); Mean Corpuscular Hgb Conc 33.8 g/dL (32-36); Mean Corpuscular Volume 93.1 fL (80-100); Mean Platelet Volume 11.9 fL (7.4-10.4); Platelet Count 266 K/uL (130-400); RDW Coefficient of Variation 14.8 % (11.5-14.5); Red Blood Count 5.08 M/uL (4.2-5.4); White Blood Count 9.14 K/uL (4.8-10.8)
[2021-01-26] MEDS: INSULIN ASPART 100 UNITS/ML 3 ML PEN SC SCH ×2 (08:24→12:30)
[2021-01-26] MEDS: VENLAFAXINE HCL XR 150 MG CAPXR PO SCH (08:25)
[2021-01-26] MEDS: ASPIRIN 81 MG ECTAB PO SCH (08:25)
[2021-01-26] MEDS: GABAPENTIN 300 MG CAP PO SCH (08:25)
[2021-01-26] MEDS: CLOPIDOGREL BISULFATE 75 MG TAB PO SCH (08:25)
[2021-01-26] MEDS: SILVER SULFADIAZINE 1% CR 50 GM JAR TOP SCH (08:26)
[2021-01-26] MEDS: INSULIN DETEMIR FLEXPEN/FLEX TOUCH 100 UNITS/ML 3ML SC SCH (08:26)
[2021-01-26 08:45] LABS: BUN Creatinine Ratio 13.1 (10-20); Calcium 9.1 mg/dl (8.5-10.1); Creatinine Clr Calc Pharmacy 34.3 ml/min; Est GFR (African American) 43.3 ml/min; Est GFR (Non-African American) 37.3 ml/min; Magnesium 2.2 mg/dl (1.8-2.4)
--- NOTE | 2021-01-26 11:20 | Pharmacy Report ---
Pharmacy Glycemic Short Note 2 - Date of Service January 26, 2021 - Glycemic Short BSG Results (Last 24 hours): 01/25/21 01/25/21 01/25/21 11:20 16:27 20:03 Glucose POC Glucose 147 H 152 H 173 H 01/26/21 01/26/21 06:47 07:42 Glucose 81 POC Glucose 90 OUTPATIENT ANTIDIABETIC REGIMEN: * Levemir 35 units SC BID * Novolog 20 units SC TIDM * HbA1c: 10.6% (01/20/21) ASSESSMENT: 01/26/21 * Patient received 75 units of insulin yesterday (50 units of basal and 25 units of bolus) * Patient's BSGs were 90-173 mg/dL. * Fasting today was 90 mg/dL * No changes in insulin regimen needed at this time 01/24/21 * Patient received 67 units of insulin yesterday (50 units of basal and 17 units of bolus) * Patient's BSGs were 690-587-572-107 mg/dL. * Fasting today was 108 mg/dL. Lunch today was 301 mg/dL (not rechecked). * Reduce PM dose of Lantus slightly as fasting BSGs are trending down. * Will continue with Novolog as unsure validity of 301 mg/dL. 01/21/21 * BSGs trended down nicely following glycemic consult * Received 88 units of insulin (Levemir 50 units, Novolog 30 units, IV insulin 8 units) * Fasting BSG of 114 mg/dL - will scale Levemir today 01/20/21 * RS is an 80 year old female who presented to ED last evening with right arm weakness and slurred speech * Suspected TIA * BSGs have been significantly elevated since admission, ranging 245-310 mg/dL * Covered with NovoLog only overnight * Patient was NPO this morning, now diet ordered with lunch * Pharmacy consulted for glycemic management this afternoon for BSG of 275 mg/dL * Will add on basal, tighten NovoLog significantly, and add one-time IV insulin bolus PLAN FOR INPATIENT GLYCEMIC CONTROL: * Basal insulin * Levemir 35 units SC qAM * Levemir 10-15 units SC HS (10 units BSG 140 or less, 15 units BSG > 140) * Bolus insulin * NovoLog per scale ACHS or Q6hrs while NPO * Goal Range: Low 110 mg/dL - High 140 mg/dL * Correction Factor: 25 mg/dL/unit * Nutritional / Prandial insulin per carb ratio of 1 unit per 8 grams CHO consumed
[2021-01-26 11:46] VITALS: TEMP 98.1
[2021-01-26 14:07] VITALS: BP 114/71; PULSE 66
--- NOTE | 2021-01-26 15:06 | Discharge Summary ---
Date of Service January 26, 2021 Admission HPI Per Admitting Provider 80 y/o F Hx HLD, DM II, hypothyroidism, obese, PA, atrial tachycardia, CVA 2019, CLL, breast CA - recently completed radiation therapy. The pt developed impaired coordination and speech the prior evening. She states she was having difficulty feeding herself, and that her balance was off as well. Her symptoms persisted when she woke up, prompting her to attend the ER. Initial imaging including a CT, CTA head/neck were negative for acute findings. Labs are notable for erythrocytosis which is chronic, and impaired but stable renal function. PMH: 1) HTN 2) HLD 3) DM II 4) Hypothyroidism 5) Obesity 6) PA 7) Atrial tachycardia - currently with loop recorder 8) CLL 9) Breast CA - 2009 with recurrence 2020 - initially treated with surgery only, recently with radiation. She has declined chemo. 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 12) Chronically elevated RBC count 13) COPD 14) DVT 15) CKD III Surgical: 1) Carotid endarterectomy 2) Hysterectomy 3) TKA 4) Craniotomy 5) B/L mastectomy 6) Appendectomy Social: Extensive smoking history, now smokes 1 cigarette daily Does not drink alcohol Family: Noncontributory to current complaint Principal Diagnosis Presumed TIA Discharge Exam Constitutional WD/WN, vitals as above Eyes EOM intact bilaterally; no conjunctival abnormality ENMT external ear and nose normal, oropharynx normal Neck trachea midline, no thyromegaly normal visual inspection Respiratory normal respiratory effort, lungs clear to auscultation no respiratory distress Cardiovascular RRR, no murmur, no edema Gastrointestinal (Abdomen) Inspection/Auscultation: abdomen normal to inspection; abdomen not distended Musculoskeletal no cyanosis or clubbing, extremities motor strength 5/5 Skin no rashes, warm and dry Neurologic moves all extremities and awake Speech / Cognition: + abnormal speech (Some stuttering with speech (possibly slightly better today)) Psychiatric Orientation: alert, oriented to person and cooperative Discharge Data Allergies Allergy/AdvReac Type Severity Reaction Status Date / Time adhesive Allergy Intermediate BLISTERS Verified 01/19/21 15:42 amitriptyline AdvReac Intermediate HALLUCINATI Verified 01/19/21 15:42 ONS atorvastatin AdvReac Intermediate JOINT PAIN Verified 01/19/21 15:42 cephalexin AdvReac Intermediate N/V Verified 01/19/21 15:42 pioglitazone AdvReac Intermediate SEVERE Verified 01/19/21 15:42 FATIGUE tramadol AdvReac Intermediate N/V Verified 01/19/21 15:42 codeine AdvReac Mild NAUSEA AND Verified 01/19/21 15:42 VOMITING doxycycline AdvReac Mild GI SYMPTOMS Verified 01/19/21 15:42 hydroxychloroquine AdvReac Mild Diarrhea Verified 01/19/21 15:42 [From Plaquenil] liraglutide AdvReac Mild GI UPSET Verified 01/19/21 15:42 metformin AdvReac Mild NAUSEA AND Verified 01/03/21 13:16 VOMITING phenol AdvReac Mild GI UPSET Verified 01/03/21 13:16 propylene glycol AdvReac Mild GI UPSET Verified 01/03/21 13:16 saccharin AdvReac Mild diarrhea Verified 01/03/21 13:16 zoster vaccine live AdvReac Unknown Unknown Verified 01/03/21 13:16 [From Zostavax (PF)] Consultations 01/19/21 14:51 ED Decision to Admit Stat 01/19/21 18:21 Consult Neurology Routine Ordered Studies 01/19/21 12:51 CT angio head w con Stat CT angio neck with con Stat CT head/brain wo con Stat 01/19/21 17:06 MR brain wo/w con Stat Diabetes Follow up Diabetes Follow-up Needed for HgbA1c >9% Hospital Course (1) Stroke-like symptoms: Presented to the hospital with slurred/stuttering speech and gait/balance issues. No acute change on CTA head/neck from 12/05/2019 testing. 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 No aneurysm rupture. 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 - MRI brain on 01/19/2021 showed no acute infarct, but did show moderate atrophy and microvascular changes. - Seen by neuro with recs to optimize meds - Continues to have stuttering speech and gait issues. Given the symptoms are ongoing and there was no stroke on MRI, it is tough to determine an etiology. It is possible her waxing/waning sugars are triggering symptoms from her microvascular disease. Her polycythemia may also be playing a role in transiently reducing cerebral perfusion. - Regardless, we spend time discussing risk factors for TIA/CVA. It would be best to optimize her BP and blood sugars. Can follow up with PCP and endocrinology. - Given referral to outpatient PT/OT/SENIOR ANALYTICAL CHEMIST services. (2) Chronic kidney disease, stage 3: Baseline Cr ~1.1 - 1.2. - Presently on upper end of her range, but not meeting definition of acute kidney injury. Encouraged good PO intake. - PVRs were all ~100 mL, so I don't think she's retaining. Stable/improving on discharge. (3) Atrial tachycardia: There was some concern for afib/flutter which would raise her CVA risk and make anticoagulation more appropriate than DAPT for her. HOWEVER, she was seen by Dr. Mccullough on 12/01/2020 where he reports that it appears to be atrial tachycardia, lasts only a few seconds, and only occurs once per month. - Can continue to follow loop recorder while battery lasts - No indication for anticoagulation at this time (4) Diabetes mellitus type 2, uncontrolled: A1c was 10.6% this admission. Chronically high/uncontrolled. - Continue long-acting and sliding scale insulin - Glycemic pharmacy following -> Sugars have been 115 - 300 in last 24 hours. -> On discharge, increased long-acting insulin to 40 units SQ BID. She denies any lows at home (ie, denies any known blood sugars in the 50 - 80 range). Denies symptoms such as shakiness, sweatiness, or restlessness that would be clinical signs of low blood sugars. Will follow up with Bhavesh Mario on discharge. (5) PA (obstructive sleep apnea): Per compliance note dated 01/18/2021, she only uses her CPAP about 1/3 of the time, and often only for an hour or so. - Encouraged compliance as this will improve her blood pressure as well as her polycythemia. (6) Breast cancer: Recently had breast nodule removed with completion of radiation. Per oncology note dated 10/01/2020, plan to continue on anastrazole. - Outpatient follow-up (7) Chronic obstructive pulmonary disease: No shortness of breath or breathing issues presently. - Albterol PRN (8) CLL (chronic lymphocytic leukemia): No present issues. (9) Hyperlipidemia: - Continue high intensity statin (10) Hypothyroidism: TSH was 0.85 in 10/2020. No signs/symptoms of hypo-/hyperthyroidism. - Continue home Synthroid 75 mcg (11) DVT prophylaxis: SCDs, early ambulation - Low DVT risk per admission calculator Total Time Total Time Spent Total Time Spent (In Minutes): 35 Discharge Plan Discharge Items Patient Disposition: Home - Home Health Services Reason For Visit: TIA/CVA Discharge Diagnosis: TIA Activity: Resume your previous activity Non-emergency contact: Primary Care Provider Call non-emergency contact if: you have any medication questions Follow-up/Referrals: José Miguel De La Cruz MD [Primary Care Provider] - 02/07/21 2:00 pm Diet: Carb Consistent or DM2 Addtl Attending Provider Instructions: Ms. Ochoa, You were admitted with some speech trouble and walking issues that we are worried were related to a mini-stroke (or TIA). Luckily, this seems to be improving for you. You did so well, that insurance is not authorizing a rehab stay which is unfortunate. You were already on dual antiplatelet therapy, daily low-dose aspirin and clopidogrel, and we think you should continue these. You were also prescribed Crestor. These medication should be continued. Unfortunately, your A1c was 10.6% here which indicates your blood sugars at home are running quite high. You should increase your basal insulin by 5 units in the morning and night-time to 40 units. You will need to see your PCP to help adjust your regimen to help reduce your blood sugars. Pending Studies at Discharge: No Stand-Alone Forms: Medications to Prevent Stroke, My [facility], Smoking Cessation Medications and DC Order Prescriptions: Continued clopidogrel 75 mg tablet 75 mg PO QAM Qty: 90 RF: 1 lorazepam 0.5 mg tablet 0.5 mg PO TID PRN (Reason: Anxiety or muscle spasm) Qty: 30 RF: 0 hydrocodone-acetaminophen 5-325 mg tablet 1 - 2 tab PO .COMPLEX MDD 6 tabs PRN (Reason: pain) Qty: 30 RF: 0 gabapentin 300 mg capsule 600 mg PO BID Qty: 360 RF: 1 silver sulfadiazine [Silvadene] 1 % cream 1 applic topical BID Qty: 85 RF: 3 rosuvastatin [Crestor] 20 mg tablet 20 mg PO HS RF: 0 cetirizine 10 mg tablet 10 mg PO QAM RF: 0 hydroxyzine HCl 25 mg tablet 25 mg PO BID PRN (Reason: Itching) RF: 0 insulin aspart U-100 [Novolog Flexpen U-100 Insulin] 100 unit/mL (3 mL) insulin pen 20 unit subcut TID RF: 0 omeprazole 40 mg capsule,delayed release(DR/EC) 40 mg PO DAILY PRN (Reason: Acid Reflux) RF: 0 venlafaxine 150 mg capsule,extended release 24hr 150 mg PO BID Qty: 180 RF: 3 aspirin 81 mg tablet,chewable 81 mg PO QAM RF: 0 PreserVision Lutein 226 mg-200 unit -5 mg-0.8 mg Capsule 1 cap PO QAM RF: 0 anastrozole 1 mg tablet 1 mg PO DAILY RF: 0 oxybutynin chloride 5 mg tablet extended release 24hr 10 mg PO HS RF: 0 levothyroxine [Tirosint] 75 mcg capsule 75 mcg PO QAM RF: 0 Changed Levemir FlexTouch U-100 Insuln 100 unit/mL (3 mL) insulin pen 40 unit subcut BID Qty: 30 RF: 5 Discontinued ciprofloxacin HCl [Cipro] 500 mg tablet 500 mg PO BID Qty: 20 RF: 0 Discharge Orders: Discharge Order (Routine); Ordered 01/26/21 Ordered By: Sanjeev Eubanks Admission Data Admit Date/Time: 01/20/21 16:29 Attending Provider: Sanjeev Eubanks Admit Provider: Benjamin Mars Primary Care Provider: José Miguel De La Cruz Other Providers: [facility] ; [facility] ; Benjamin Mars ; Clemente Arriaga ; Marciano Alexander ; Unique Suresh ; Dayanna Tim ; Victorina Solo [facility] [place] ; [place] Other Interventions: Discharge Summary Assessment (RN) Last Done: 01/26/21 14:06 Coding Level of Care Code D/C DAY MANAGEMENT >30 MINS Diagnoses Stroke-like symptoms R29.90 Chronic kidney disease, stage 3 N18.32 Chronic kidney disease stage 3 subtype: stage 3b (GFR 30-44) Atrial tachycardia I47.1 Diabetes mellitus type 2, uncontrolled E11.65 Coma presence: without coma PA (obstructive sleep apnea) G47.33 Breast cancer C50.919 Chronic obstructive pulmonary disease J44.9 COPD type: unspecified COPD CLL (chronic lymphocytic leukemia) C91.10 Hyperlipidemia E78.2 Hyperlipidemia type: mixed hyperlipidemia Hypothyroidism E03.9 Hypothyroidism type: unspecified DVT prophylaxis Z29.9
--- NOTE | 2021-02-04 11:37 | Coding Query ---
CODING QUERY To promote full compliance with coding requirements relating to patient care, provider participation is requested in all cases of teacher private uncertainty. 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 Please specify below, in your clinical opinion, regarding the relationship, if any, between Presumed TIA and Occlusion of right vertebral artery. ( ) Presumed TIA likely due to occlusion of the right vertebral artery ( x ) Presumed TIA NOT likely due to occlusion of the right vertebral artery ( ) Other: Please Specify Physician's Response(s): Thank you Bisi Araujo Principal Diagnosis: "that condition established after study, to be chiefly responsible for occasioning the admission of the patient to the hospital for care." Co-Existing Principal Diagnosis: "when two or more diagnoses equally meet the criteria for principal diagnosis as determined by the circumstances of admission, diagnostic work up, and/or therapy provided, and the Alphabetic Index, Tabular List, or another coding guideline does not provide sequencing direction, any one of the diagnoses may be sequenced first." "When the physician has documented what appears to be a current diagnosis in the body of the record, but has not included the diagnosis in the final diagnostic statement, the physician should be asked whether the diagnosis should be added." (Source Coding Clinic 2 QTR90. p3-4) [place]
--- NOTE | 2021-02-04 11:44 | Coding Query ---
CODING QUERY To promote full compliance with coding requirements relating to patient care, provider participation is requested in all cases of manager [employer] uncertainty. 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 The study does reveal rather extensive chronic cerebrovascular disease, however. It is notable that she had similar symptoms that were felt to be related to an acute stroke that occurred last November, also with a brain MRI that was negative. 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 Please specify below, in your clinical opinion, regarding short segment dissection of the proximal cervical right Internal Carotid Artery. ( x ) short segment dissection of the proximal cervical segment of the right ICA is monitored during this admission ( ) short segment dissection of the proximal cervical segment of the right ICA is NOT treated and/or monitored during this admission ( ) Other: Please Specify Physician's Response(s): Thank you Bisi Araujo Principal Diagnosis: "that condition established after study, to be chiefly responsible for occasioning the admission of the patient to the hospital for care." Co-Existing Principal Diagnosis: "when two or more diagnoses equally meet the criteria for principal diagnosis as determined by the circumstances of admission, diagnostic work up, and/or therapy provided, and the Alphabetic Index, Tabular List, or another coding guideline does not provide sequencing direction, any one of the diagnoses may be sequenced first." "When the physician has documented what appears to be a current diagnosis in the body of the record, but has not included the diagnosis in the final diagnostic statement, the physician should be asked whether the diagnosis should be added." (Source Coding Clinic 2 QTR90. p3-4) [facility]
== END 2021-01-26 14:51 | disposition home or self-care (01) | DRG 69 ==
LOC: ED 12:15 → EDINP 12:15 → SUATTDRO 16:09 → 2S 17:39 → SUATTDRO 01-20 16:29 → 2N 01-20 22:14

== ENCOUNTER 2021-01-30 16:51 | Observation (INO) ==
[2021-01-30 17:57] LABS: Hematocrit (blood only) 50.1 % (37-47); Hemoglobin 17.1 g/dL (12.0-16.0); Mean Corpuscular Hemoglobin 31.5 pg (25-34); Mean Corpuscular Hgb Conc 34.1 g/dL (32-36); Mean Corpuscular Volume 92.4 fL (80-100); Mean Platelet Volume 11.1 fL (7.4-10.4); Platelet Count 372 K/uL (130-400); RDW Coefficient of Variation 14.4 % (11.5-14.5); RDW Standard Deviation 48.4 fL (36.4-46.3); Red Blood Count 5.42 M/uL (4.2-5.4)
[2021-01-30 18:04] LABS: Albumin Level 3.4 gm/dl (3.4-5.0); Calcium 9.1 mg/dl (8.5-10.1); Creatinine Clr Calc Pharmacy 34.5 ml/min; Est GFR (African American) 47.5 ml/min; Magnesium 2.1 mg/dl (1.8-2.4); Potassium 3.5 mmol/L (3.5-5.1)
--- NOTE | 2021-01-30 18:04 | XRay Report ---
XR chest 1V portable CLINICAL HISTORY: stroke alert COMPARISON STUDY: Chest radiograph January 19, 2021. FINDINGS: Lung volumes are normal. Lungs are clear. There is no pneumothorax or pleural effusion. Car diac size is stable. Mediastinal contours are normal. There is no evidence for pulmonary edema. Loop recorder device is incidentally noted. IMPRESSION: No acute cardiopulmonary findings. ACT 112: Negative or not required by law. Electronically signed by: Manolo Rueda M.D. 01/30/2021 6:03 PM
[2021-01-30 18:07] LABS: Albumin Globulin Ratio 0.9 (0.9-2); Bilirubin,Total 0.7 mg/dl (0.2-1); Globulin 3.8 gm/dl (2.5-4.0); Total Protein 7.2 gm/dl (6.4-8.2)
[2021-01-30 18:10] LABS: Partial Thromboplastin Time 27.2 Seconds (21.0-31.0); Prothrombin Time 10.1 Seconds (9.0-12.0)
[2021-01-30] MEDS ORDERED: OPTIRAY 320 125ml IV ONE (18:27)
--- NOTE | 2021-01-30 18:40 | CT Scan Report ---
CT OF THE HEAD WITHOUT CONTRAST CLINICAL HISTORY: Stroke Alert COMPARISON STUDY: Head CT, CTA of the head and MRI of the brain January 19, 2021. TECHNIQUE: Helical axial images of the head were obtained without IV contrast. Automated exposure con trol was utilized for the study. A dose lowering technique was utilized adhering to the principles o f ALARA. FINDINGS: No acute intracranial hemorrhage, midline shift or mass effect is present. The ventricular system is stable. Basal cisterns are patent. There are no extra-axial collections. White matter hypod ensities are unchanged and suggest small vessel disease. A 9 mm hypodensity within the right cerebell ar hemisphere on image 7 of 28 was not evident on prior exam. There are no findings to suggest acute dural sinus thrombosis or acute territorial infarct. Hyperdense material within the distal left verte bral artery is unchanged. There are no significant calvarial abnormalities. IMPRESSION: 1. No acute intracranial hemorrhage or mass effect. 2. 9 mm right cerebellar hypodensity. This could be artifactual or represent an age indeterminate lac unar infarct. ACT 112: Negative or not required by law. Electronically signed by: Manolo Rueda M.D. 01/30/2021 6:38 PM
--- NOTE | 2021-01-30 19:01 | CT Scan Report ---
CT ANGIOGRAPHY OF THE NECK WITH CONTRAST CLINICAL HISTORY: tia COMPARISON STUDY: CTA of the neck January 19, 2021. Technique: CT angiography of the carotid and vertebral arteries was obtained using Optiray and 3D rec onstruction on an independent workstation. NASCET criteria was utilized. Automated exposure control was utilized for the study. A dose lowering technique was utilized adhering to the principles of ALA RA. CT DOSE: 1057.97 mGy.cm Findings: The left vertebral artery is dominant. Severe stenosis at the origin of the left vertebral artery is unchanged since CT of January 19, 2021. No additional stenoses within the cervical portion o f the left vertebral artery are present. Occlusion of the proximal to mid right vertebral artery with distal reconstitution is unchanged since prior CTA. The right vertebral artery is diminutive. There is mild stenosis of the left common carotid artery at the vessel origin. There is moderate plaque wit hin the proximal left internal carotid artery without significant stenosis. A 5 mm outpouching of the proximal right internal carotid artery is unchanged with possible associated small focal dissection. The appearance of the neck is unchanged since prior examination. IMPRESSION: 1. No change since CTA of January 19, 2021. 2. Severe stenosis at the origin of the left vertebral artery. Occlusion of the proximal to mid right vertebral artery with distal reconstitution. 3. Stable 5 mm outpouching of the proximal right internal carotid artery with possible associated destiny rt segment dissection, unchanged. 4. Moderate atherosclerotic plaque within the major vessels of the neck, as described above. ACT 112: Negative or not required by law. Electronically signed by: Manolo Rueda M.D. 01/30/2021 6:59 PM
--- NOTE | 2021-01-30 19:09 | CT Scan Report ---
CTA ANGIOGRAPHY OF THE HEAD CLINICAL HISTORY: tia COMPARISON STUDY: CTA of the head March 21, 2021. TECHNIQUE: Helical axial images of the head were obtained following uneventful intravenous administr ation of Optiray. Sagittal and coronal reconstructions were viewed as well as maximal intensity proje ctions on an independent 3-D workstation. Automated exposure control was utilized for the study. A dose lowering technique was utilized adhering to the principles of ALARA. FINDINGS: No acute intracranial hemorrhage, midline shift or mass effect is present. White matter hyp odensities suggest small vessel disease. Ventricular system is stable. A 4 mm saccular aneurysm arisi ng from the distal right middle cerebral artery is unchanged since prior examination. A 2 mm aneurysm arising from the basilar artery is unchanged. Hyperdense material adjacent to the distal cervical po rtion of the left vertebral artery is unchanged. The left vertebral artery is dominant. Multifocal st enoses within the intracranial vessels are similar to prior exam. These are most pronounced within a sylvian branch of the left middle cerebral artery. No central vessel occlusion is present. IMPRESSION: 1. No change since CTA of January 19, 2021. 2. No central vessel occlusion. 3. No change in a 4 mm saccular aneurysm of the distal right middle cerebral artery and a 2 mm basila r artery aneurysm. 4. Multifocal stenoses within the intracranial vessels which are unchanged. ACT 112: Negative or not required by law. Electronically signed by: Manolo Rueda M.D. 01/30/2021 7:08 PM
--- NOTE | 2021-01-30 20:39 | History & Physical Report ---
Date of Service January 30, 2021 Assessment & Plan (1) Brain TIA: Plan: Patient is a pleasant 80 year old female with PMHx HLD, DM2, TIA, CVA, CLL, Breast Cx who presents today by EMS for concerns of worsening confusion and L sided facial droop. Patient was recently admitted from 01/19-01/26/21 for similar symptoms and at that time diagnosed with a suspected TIA. Suspected recurrent TIA -Patient with symptoms consistent with TIA similar to previous admission from 01/19-01/26/21 -No weakness on this admission -CT head suggestive of age indeterminate R lacunar -CTA head unchanged as of 01/19/21 -CTA Neck with severe stenosis at the origin of the left vertebral artery. Occlusion of the proximal to mid right vertebral artery with distal reconstitution. Stable 5mm outpouching of the proximal R internal carotid artery. -MRI head stat read without acute abnormality, stroke, or hemorrhage. No evidence for R cerebellar infarct as suggested on the CT head. -At previous visit patient had been recommended to start eliquis in place of Plavix but had yet to do so -Will start Eliquis 5mg BID, DC plavix -Continue ASA 81mg QD -Continue Crestor -Neurology consulted -Echo in AM -Will defer HgbA1c and Lipid profile as it was drawn at most recent admission Polycythemia -Hgb 17 on admission -Suspect secondary to history of tobacco use -Will check JAK2 mutation Breast Cx -Continue Anastrazole Hypothyroidism -Continue Levothyroxine GERD -Continue Omeprazole Dispo: Med/Surg Telemetry for stroke/TIA work up FEN: NPO DVT: Eliquis Code: DNR/DNI History of Present Illness Chief Complaint: Patient is a pleasant 80 year old female with PMHx HLD, DM2, TIA, CVA, CLL, Breast Cx who presents today by EMS for concerns of worsening confusion and L sided facial droop. Patient was recently admitted from 01/19- 01/26/21 for similar symptoms and at that time diagnosed with a suspected TIA. Patient is able to answer questions appropriately, but is very slow to do so. She does note that her memory is not the greatest in regards to the events of today, however, and request that I speak with her or granddaughter Petty. Patient at this time notes that she is not having any weakness, chest pain, chest pressure, shortness of breath, fever, chills, abdominal pain, nausea, vomiting, headache. She does note some slight blurred vision which she notes has been ongoing the past few days, but she is unsure of an exact timeline. Discussion with patient's granddaughter Petty Larios ([phone]) provides further clarity to today. She notes that Sharon had been more difficult to work with the past few days since discharge. She would be less inclined to get out of bed to take her medications, check sugar, etc. She also notes that the patient has been responding appropriately to questions and talks, however, has been very slow to respond. She had called Sharon's PCP's office to discuss this who felt that EMS eval could be warranted as the patient had been so far off from her baseline. She notes that around 3PM today she did not that Sharon was having L sided facial droop without any weakness in her extremities. She states when EMS arrived the patient still had the facial droop and again no weakness. Petty states that while Sharon was in the hospital last there was discussion about switching her from plavix to Eliquis for concerns of her strokes/tia being cardioembolic in nature and that the prescription for eliquis was sent in, however, it was never started as they could not find it on the discharge summary. She notes that Sharon had a stroke back in November of 2019 and that at the time it affected her R side, not her L. She states that the only remaining symptom from that some slurred speech and some urinary incontinence (urge). Primary Care Provider: Sumit De La Cruz MD Allergies Allergy/AdvReac Type Severity Reaction Status Date / Time adhesive Allergy Intermediate BLISTERS Verified 01/30/21 17:45 amitriptyline AdvReac Intermediate HALLUCINATI Verified 01/30/21 17:45 ONS atorvastatin AdvReac Intermediate JOINT PAIN Verified 01/30/21 17:45 cephalexin AdvReac Intermediate N/V Verified 01/30/21 17:45 pioglitazone AdvReac Intermediate SEVERE Verified 01/30/21 17:45 FATIGUE tramadol AdvReac Intermediate N/V Verified 01/30/21 17:45 codeine AdvReac Mild NAUSEA AND Verified 01/30/21 17:45 VOMITING doxycycline AdvReac Mild GI SYMPTOMS Verified 01/30/21 17:45 hydroxychloroquine AdvReac Mild Diarrhea Verified 01/30/21 17:45 [From Plaquenil] liraglutide AdvReac Mild GI UPSET Verified 01/30/21 17:45 metformin AdvReac Mild NAUSEA AND Verified 01/30/21 17:45 VOMITING phenol AdvReac Mild GI UPSET Verified 01/30/21 17:45 propylene glycol AdvReac Mild GI UPSET Verified 01/30/21 17:45 saccharin AdvReac Mild diarrhea Verified 01/30/21 17:45 zoster vaccine live AdvReac Unknown Unknown Verified 01/30/21 17:45 [From Zostavax (PF)] Home Medications Medication Instructions Recorded Confirmed Type vit C-vit [id number] ox-lutein 1 cap PO QAM 09/04/18 02/03/21 History 226 mg-200 unit-5 mg-0.8 mg capsule (PreserVision Lutein) aspirin 81 mg chewable tablet 81 mg PO QAM 01/21/19 02/03/21 History rosuvastatin 20 mg tablet (Crestor) 20 mg PO HS tab 05/04/20 02/03/21 History cetirizine 10 mg tablet 10 mg PO QAM 09/09/20 02/03/21 History hydroxyzine HCl 25 mg tablet 25 mg PO BID PRN 09/09/20 02/03/21 History insulin aspart U-100 100 unit/mL 20 unit SUBCUT TID ml 09/09/20 02/03/21 History (3 mL) subcutaneous pen (Novolog Flexpen U-100 Insulin aspart) omeprazole 40 mg capsule,delayed 40 mg PO DAILY PRN cap 09/09/20 02/03/21 History release levothyroxine 75 mcg capsule 75 mcg PO QAM 09/13/20 02/03/21 History (Tirosint) oxybutynin chloride 5 mg 10 mg PO HS 09/13/20 02/03/21 History tablet,extended release 24 hr hydrocodone 5 mg-acetaminophen 325 1 - 2 tab PO .COMPLEX PRN #30 tab 12/02/20 02/03/21 Rx mg tablet MDD 6 tabs lorazepam 0.5 mg tablet 0.5 mg PO TID PRN #30 tab 12/02/20 02/03/21 Rx gabapentin 300 mg capsule 600 mg PO BID #360 cap 12/03/20 02/03/21 Rx venlafaxine 150 mg 150 mg PO BID #180 cap 12/14/20 02/03/21 Rx capsule,extended release 24 hr silver sulfadiazine 1 % topical 1 applic TOPICAL BID #85 g 01/03/21 02/03/21 Rx cream (Silvadene) anastrozole 1 mg tablet 1 mg PO DAILY 01/19/21 02/03/21 History insulin detemir U-100 100 unit/mL 40 unit SUBCUT BID #30 ml 01/26/21 02/03/21 Rx (3 mL) subcutaneous pen (Levemir FlexTouch U-100 Insulin) apixaban 2.5 mg tablet (Eliquis) 2.5 mg PO BID 30 Days #60 tab 02/01/21 02/03/21 Rx Past Med/Surg History Medical History Allergic rhinitis Aneurysm, cerebral, nonruptured Repaired with stent> 2016 Per 12/05/2019 head CTA = postprocedural changes involving the distal left vertebral artery. 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 Anxiety Asthma well controlled per pt > no inhalers Asymptomatic hyperuricemia Atrial aneurysm Atrial fib/flutter, transient Follows [facility] > no cardioversions Loop recorder in place - [employer]- placed 09/05/18 Breast cancer DX in 2009> bilat mastectomy >no chemo Recently diagnosed with metastatic right breast carcinoma 08/13/20 Carotid artery dissection Carotid artery stenosis Follows with [facility]. S/p CEA years ago Per 12/05/2019 neck CTAatheromatous changes involving both ICAs without evidence of hemodynamically significant stenosis. Short segment dissection of proximal ICA. Central stenosis of spinal canal Chronic kidney disease, stage 3 follows PCP > Dr. De La Cruz Chronic obstructive pulmonary disease has more difficulty at night with breathing. ok during day On oxygen in the past but no longer using CLL (chronic lymphocytic leukemia) Coronary artery calcification Deep vein thrombosis several yrs ago> left leg > caused from control pills Depression Diabetes mellitus type 2, uncontrolled IDDM Diabetic nephropathy Diverticulosis Gait disturbance Gastroesophageal reflux disease Hyperlipidemia Hyperplastic colon polyp Hypertension Hypothyroidism Internal hemorrhoids Left hemiparesis From stroke in November 2019 Lumbar radiculopathy Lumbar spinal stenosis Lumbar stenosis with neurogenic claudication Nicotine dependence Nodule of chest wall right lateral Nonalcoholic steatohepatitis Obesity On home oxygen therapy no longer using at this time Osteoarthritis bilateral knees, legs, hands Osteopenia Polycythemia Polyuria Seborrheic keratosis Sensorineural hearing loss (SNHL) of both ears Short-term memory loss Sleep apnea Sleep related hypoxia Sleep apnea > does not use CPAP Stroke December 05, 2019 > [facility] > has short term memory loss as result > left side weakness TMJ syndrome Urinary frequency Urinary incontinence Vertigo Vitamin D deficiency Surgical History H/O varicose vein ligation and stripping left leg History of appendectomy History of brain surgery Cerebral angiogram and stent-assisted coil embolization of the It PICA aneurysm. 12/22/2015 > follows with [facility] History of breast lump/mass excision History of carotid endarterectomy over 6 yrs ago > [facility] History of cataract surgery Right: July 2012 Left: August 2012 History of colonoscopy History of hysterectomy Ovaries intact History of mastectomy bilateral September 2009 History of parathyroid surgery Excision of benign neoplasm History of shoulder surgery Right shoulder arthroscopic labral debridement, subacromial decompression, and acromioplasty excision distal clavicle, biceps tenotomy. 06/15/2014 History of total knee replacement left 01/11/2012 Hx of tonsillectomy Family History Grandmother No problems noted. Father , in his 50s of lung cancer Lung disease Lung cancer Mother , in her 70s of cancer Cancer Hypertension Unknown , Niece at 37 Colon cancer Son Anxiety Depression Kidney stones Alcohol abuse Grandmother (Maternal) Lung cancer Sister COPD (chronic obstructive pulmonary disease) Son MVA (motor vehicle accident) Son Rheumatic fever Daughter Medical history unknown Denies family history of Ovarian cancer Prostate cancer Myocardial infarction Breast cancer Bleeding disorder Social History Smoking Status: Former smoker Tobacco Type: Cigarettes Age Started Using Tobacco: 16; Years Smoked: 60; Cigarettes Per Day: 2; Second Hand Exposure: Yes; Hx Alcohol Use: No Hx Substance Use: No Preferred Language: Chinese Communication Ability: Effective Visual Impairment: No Limitations Hearing Ability: Normal [place] Room Worker Required: No Beliefs That Will Affect Care: None marital status: Current Living Situation: Spouse Current Living Situation Comment: Home current occupational status: retired 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 [employer] How many Children do You have: 4 How many Children do You have Comment: Pregnancies:6 Children:4 :1 Feels Safe at Home: Yes Childhood Exposure to Second-Hand Smoke: Yes caffeine: Yes during the past year weight has: remained stable Dental Care, Regularly: No Physical Activity Frequency: Does not Exercise Seatbelt Use: never Assistive Devices: Walker Review of Systems Review of Systems: Limited secondary to patients cognitive status, but as above in HPI Physical Exam Constitutional: well developed, well nourished, cooperative and comfortable; no acute distress Eyes: PERRL, conjunctivae normal, anicteric sclerae + eyelid abnormality (L brow slightly lower than R ) Results & Data Results & Data ([facility]) Vital Signs (Past 12 Hours) Vital Signs Temp Pulse Pulse Resp BP BP Pulse Ox 01/30/21 19:38 79 19 153/70 H 92 01/30/21 18:39 78 18 153/80 H 95 01/30/21 17:45 77 12 95 01/30/21 17:07 79 16 155/89 H 96 01/30/21 17:00 72 16 155/89 H 92 01/30/21 16:51 37.2 C 77 12 155/89 H 95 Supervising Physician Co-Signing Physician Notes Attending addendum: I have physically seen this patient, have supervised the medical residents activities, and agree with the H&P unless as otherwise noted. Assessment and Plan: Recurrent TIA- The patient will be admitted to telemetry for serial cardiac enzymes, serial EKG's, cardiac rhythm monitoring and a 2-D echocardiogram with Dopplers. CT head with indeterminate right lacunar infarct CTA head unchanged compared to 01/19/21 CTA neck: Severe stenosis at origin left vertebral artery. Occlusion of the proximal to mid right vertebral artery with distal reconstitution. Stable 5 mm outpouching of proximal right internal carotid artery. MRI head without acute changes, and no confirmation of CTA head findings As noted per previous neurology note at previous hospitalization. Start Eliquis 5 mg p.o. twice daily. Discontinue Plavix. Continue aspirin 81 mg daily Continue high-dose statin Crestor Consult neurology Polycythemia- Hemoglobin 17.1 upon admission, hematocrit 50.1 Likely secondary to tobacco use history Check JAK2 mutation Remaining orders and notations as noted Resident Activity Tracking Resident Involvement: Resident Care Provided Care Provided: Adult Hospital Medicine
[2021-01-30 21:20] LABS: Appearance Urine Clear (Clear); Bilirubin Urine Negative (Negative); Blood Urine Negative (Negative); Color Urine Yellow; Glucose Urine UA Negative (Negative); Ketones Urine Trace (Negative); Leukocyte Esterase Urine Negative (Negative); Nitrite Urine Negative (Negative); Protein Urine Negative (Negative); Specific Gravity Urine 1.031 (1.000-1.030); Urobilinogen Urine Negative (Negative); pH Urine 5.5 (4.5-7.5)
[2021-01-30 22:00] LABS: Thyroid Stimulating Hormone 5.28 uIu/ml (0.300-4.500)
[2021-01-30 22:12] LABS: T4 Free Thyroxine 1.08 ng/dl (0.8-1.6)
[2021-01-30] MEDS ORDERED: LORazepam 0.5 MG/1 ML VIAL IV STA ×2 (22:13→22:44)
[2021-01-30] MEDS ORDERED: LORazepam 2 MG/4 ML VIAL ONE (22:17)
[2021-01-30] MEDS ORDERED: GADOBUTROL 10ML VIAL IV ONE (23:15)
[2021-01-30] MEDS ORDERED: PHARMACIST DISCHARGE MED REC CONSULT PRN (23:55)
[2021-01-30] MEDS ORDERED: ONDANSETRON INJ 2 MG/ML 2 ML VIAL IV PRN (23:55)
[2021-01-31] MEDS: APIXABAN 5 MG TABLET PO SCH ×3 (00:33→21:22)
[2021-01-31] MEDS: GABAPENTIN 600 MG TAB PO SCH ×3 (00:33→21:22)
[2021-01-31] MEDS: OXYBUTYNIN CHLORIDE XL 5 MG TABCR PO SCH ×2 (00:34→21:22)
[2021-01-31] MEDS: ROSUVASTATIN CALCIUM 20 MG TAB PO SCH ×2 (00:34→21:22)
[2021-01-31] MEDS: SODIUM CHLORIDE 0.9% 1000ML 1,000 ML IV SCH ×2 (00:34→10:37)
[2021-01-31] MEDS: VENLAFAXINE HCL XR 150 MG CAPXR PO SCH ×3 (00:34→21:22)
--- NOTE | 2021-01-31 01:15 | Emergency Department Note ---
History of Present Illness General Chief complaint: TIA Symptoms Stated complaint: NEURO/STROKE SYMPTOMS Time Seen by Provider: 01/30/21 18:00 Source: RN notes reviewed History of Present Illness Provider complaint: Weakness difficulty speaking Onset (ago): hour(s) 3 Associated symptoms: + weakness 80-year-old female presents to the emergency department for weakness and facial droop. Patient's symptoms began approximately 3 hours ago at 1500 according to nursing. Patient is having difficulty speaking and is confused. Facial droop noted. Home Medications Medication Instructions Recorded Confirmed Type vit C-vit J-xmnxtj-anin ox-lutein 1 cap PO QAM 09/04/18 01/30/21 History 226 mg-200 unit-5 mg-0.8 mg capsule (PreserVision Lutein) aspirin 81 mg chewable tablet 81 mg PO QAM 01/21/19 01/30/21 History rosuvastatin 20 mg tablet (Crestor) 20 mg PO HS tab 05/04/20 01/30/21 History cetirizine 10 mg tablet 10 mg PO QAM 09/09/20 01/30/21 History hydroxyzine HCl 25 mg tablet 25 mg PO BID PRN 09/09/20 01/30/21 History insulin aspart U-100 100 unit/mL 20 unit SUBCUT TID ml 09/09/20 01/30/21 History (3 mL) subcutaneous pen (Novolog Flexpen U-100 Insulin aspart) omeprazole 40 mg capsule,delayed 40 mg PO DAILY PRN cap 09/09/20 01/30/21 History release levothyroxine 75 mcg capsule 75 mcg PO QAM 09/13/20 01/30/21 History (Tirosint) oxybutynin chloride 5 mg 10 mg PO HS 09/13/20 01/30/21 History tablet,extended release 24 hr clopidogrel 75 mg tablet 75 mg PO QAM #90 tab 10/26/20 01/30/21 Rx hydrocodone 5 mg-acetaminophen 325 1 - 2 tab PO .COMPLEX PRN #30 tab 12/02/20 01/30/21 Rx mg tablet MDD 6 tabs lorazepam 0.5 mg tablet 0.5 mg PO TID PRN #30 tab 12/02/20 01/30/21 Rx gabapentin 300 mg capsule 600 mg PO BID #360 cap 12/03/20 01/30/21 Rx venlafaxine 150 mg 150 mg PO BID #180 cap 12/14/20 01/30/21 Rx capsule,extended release 24 hr silver sulfadiazine 1 % topical 1 applic TOPICAL BID #85 g 01/03/21 01/30/21 Rx cream (Silvadene) anastrozole 1 mg tablet 1 mg PO DAILY 01/19/21 01/30/21 History insulin detemir U-100 100 unit/mL 40 unit SUBCUT BID #30 ml 01/26/21 01/30/21 Rx (3 mL) subcutaneous pen (Levemir FlexTouch U-100 Insulin) Allergies Allergy/AdvReac Type Severity Reaction Status Date / Time adhesive Allergy Intermediate BLISTERS Verified 01/30/21 17:45 amitriptyline AdvReac Intermediate HALLUCINATI Verified 01/30/21 17:45 ONS atorvastatin AdvReac Intermediate JOINT PAIN Verified 01/30/21 17:45 cephalexin AdvReac Intermediate N/V Verified 01/30/21 17:45 pioglitazone AdvReac Intermediate SEVERE Verified 01/30/21 17:45 FATIGUE tramadol AdvReac Intermediate N/V Verified 01/30/21 17:45 codeine AdvReac Mild NAUSEA AND Verified 01/30/21 17:45 VOMITING doxycycline AdvReac Mild GI SYMPTOMS Verified 01/30/21 17:45 hydroxychloroquine AdvReac Mild Diarrhea Verified 01/30/21 17:45 [From Plaquenil] liraglutide AdvReac Mild GI UPSET Verified 01/30/21 17:45 metformin AdvReac Mild NAUSEA AND Verified 01/30/21 17:45 VOMITING phenol AdvReac Mild GI UPSET Verified 01/30/21 17:45 propylene glycol AdvReac Mild GI UPSET Verified 01/30/21 17:45 saccharin AdvReac Mild diarrhea Verified 01/30/21 17:45 zoster vaccine live AdvReac Unknown Unknown Verified 01/30/21 17:45 [From Zostavax (PF)] Past Med/Surg History Medical History Allergic rhinitis Aneurysm, cerebral, nonruptured Repaired with stent> 2016 Per 12/05/2019 head CTA = postprocedural changes involving the distal left vertebral artery. 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 Anxiety Asthma well controlled per pt > no inhalers Asymptomatic hyperuricemia Atrial aneurysm Atrial fib/flutter, transient Follows [facility] > no cardioversions Loop recorder in place - [employer]- placed 09/05/18 Breast cancer DX in 2009> bilat mastectomy >no chemo Recently diagnosed with metastatic right breast carcinoma 08/13/20 Carotid artery dissection Carotid artery stenosis Follows with [facility]. S/p CEA years ago Per 12/05/2019 neck CTAatheromatous changes involving both ICAs without evidence of hemodynamically significant stenosis. Short segment dissection of proximal ICA. Central stenosis of spinal canal Chronic kidney disease, stage 3 follows PCP > Dr. De La Cruz Chronic obstructive pulmonary disease has more difficulty at night with breathing. ok during day On oxygen in the past but no longer using CLL (chronic lymphocytic leukemia) Coronary artery calcification Deep vein thrombosis several yrs ago> left leg > caused from control pills Depression Diabetes mellitus type 2, uncontrolled IDDM Diabetic nephropathy Diverticulosis Gait disturbance Gastroesophageal reflux disease Hyperlipidemia Hyperplastic colon polyp Hypertension Hypothyroidism Internal hemorrhoids Left hemiparesis From stroke in November 2019 Lumbar radiculopathy Lumbar spinal stenosis Lumbar stenosis with neurogenic claudication Nicotine dependence Nodule of chest wall right lateral Nonalcoholic steatohepatitis Obesity On home oxygen therapy no longer using at this time Osteoarthritis bilateral knees, legs, hands Osteopenia Polycythemia Polyuria Seborrheic keratosis Sensorineural hearing loss (SNHL) of both ears Short-term memory loss Sleep apnea Sleep related hypoxia Sleep apnea > does not use CPAP Stroke December 05, 2019 > [facility] > has short term memory loss as result > left side weakness TMJ syndrome Urinary frequency Urinary incontinence Vertigo Vitamin D deficiency Surgical History H/O varicose vein ligation and stripping left leg History of appendectomy History of brain surgery Cerebral angiogram and stent-assisted coil embolization of the It PICA aneurysm. 12/22/2015 > follows with [facility] History of breast lump/mass excision History of carotid endarterectomy over 6 yrs ago > [facility] History of cataract surgery Right: July 2012 Left: August 2012 History of colonoscopy History of hysterectomy Ovaries intact History of mastectomy bilateral September 2009 History of parathyroid surgery Excision of benign neoplasm History of shoulder surgery Right shoulder arthroscopic labral debridement, subacromial decompression, and acromioplasty excision distal clavicle, biceps tenotomy. 06/15/2014 History of total knee replacement left 01/11/2012 Hx of tonsillectomy Family History Grandmother No problems noted. Father , in his 50s of lung cancer Lung disease Lung cancer Mother , in her 70s of cancer Cancer Hypertension Unknown , Niece at 37 Colon cancer Son Anxiety Depression Kidney stones Alcohol abuse Grandmother (Maternal) Lung cancer Sister COPD (chronic obstructive pulmonary disease) Son MVA (motor vehicle accident) Son Rheumatic fever Daughter Medical history unknown Denies family history of Ovarian cancer Prostate cancer Myocardial infarction Breast cancer Bleeding disorder Social History Smoking Status: Former smoker Tobacco Type: Cigarettes Age Started Using Tobacco: 16; Years Smoked: 60; Cigarettes Per Day: 2; Second Hand Exposure: Yes; Hx Alcohol Use: No Hx Substance Use: No Preferred Language: Bengali Communication Ability: Effective Visual Impairment: No Limitations Hearing Ability: Normal [place] Required: No Beliefs That Will Affect Care: None marital status: Current Living Situation: Spouse Current Living Situation Comment: Home current occupational status: retired 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 [employer] How many Children do You have: 4 How many Children do You have Comment: Pregnancies:6 Children:4 :1 Other Information That Helps Us Care for You: No Feels Safe at Home: Yes Safety Concerns: Feels Safe At This Time Childhood Exposure to Second-Hand Smoke: Yes caffeine: Yes during the past year weight has: remained stable Dental Care, Regularly: No Physical Activity Frequency: Does not Exercise Seatbelt Use: never Assistive Devices: Walker Review of Systems Unobtainable due to cognitive status Physical Exam Vital Signs Vital Signs - 24 hr 01/30/21 16:51 01/30/21 17:00 01/30/21 17:07 Temperature 37.2 C Temperature Source Oral Pulse Rate 77 72 Pulse Rate [Apical] 79 Pulse Rate from SpO2 Sensor 74 Pulse Rhythm Respiratory Rate 12 16 16 Respiratory Effort / Characteristics Non-Labored Spontaneous Respiratory Depth Normal Normal Respiratory Pattern Regular Regular Blood Pressure 155/89 H 155/89 H Blood Pressure [Right Arm] 155/89 H Blood Pressure Mean 111 111 Blood Pressure Mean [Right Arm] 111 Blood Pressure Position [Right Arm] Semi-fowlers Pulse Oximetry 95 92 96 Oxygen Delivery Method Room Air Room Air Sepsis Recent Fever Within 48 Hours No Sepsis New/Unexplained Change in Mental Status No Sepsis Action Taken by Nursing No Action Required 01/30/21 17:45 01/30/21 18:39 01/30/21 19:38 Temperature Temperature Source Pulse Rate 77 78 79 Pulse Rate [Apical] Pulse Rate from SpO2 Sensor 78 80 Pulse Rhythm Regular Respiratory Rate 12 18 19 Respiratory Effort / Characteristics Respiratory Depth Respiratory Pattern Blood Pressure 153/80 H 153/70 H Blood Pressure [Right Arm] Blood Pressure Mean 104 97 Blood Pressure Mean [Right Arm] Blood Pressure Position [Right Arm] Pulse Oximetry 95 95 92 Oxygen Delivery Method Room Air Sepsis Recent Fever Within 48 Hours Sepsis New/Unexplained Change in Mental Status Sepsis Action Taken by Nursing 01/30/21 20:00 01/30/21 20:31 Temperature Temperature Source Pulse Rate 85 79 Pulse Rate [Apical] Pulse Rate from SpO2 Sensor 81 79 Pulse Rhythm Respiratory Rate 18 14 Respiratory Effort / Characteristics Respiratory Depth Respiratory Pattern Blood Pressure 181/88 H 144/84 H Blood Pressure [Right Arm] Blood Pressure Mean 119 104 Blood Pressure Mean [Right Arm] Blood Pressure Position [Right Arm] Pulse Oximetry 95 94 Oxygen Delivery Method Sepsis Recent Fever Within 48 Hours Sepsis New/Unexplained Change in Mental Status Sepsis Action Taken by Nursing Physical Exam HENT: Exam performed. -Head: Normocephalic and atraumatic. -Right Ear: External ear normal. No mastoid tenderness. -Left Ear: External ear normal. No mastoid tenderness. -Mouth/Throat: The oropharynx is clear and moist. No trismus in the jaw. No dental abscesses or uvula swelling. No oropharyngeal exudate or tonsillar abscesses. EYES: Conjunctivae and EOM are normal. Pupils are equal, round, and reactive to light. Right eye exhibits no discharge. Left eye exhibits no discharge. No scleral icterus. NECK: Normal range of motion. Neck supple. No JVD present. CV: Normal rate, regular rhythm, normal heart sounds and intact distal pulses. There is no peripheral edema. Palpable radial pulses bue. PULM/CHEST: Effort normal and breath sounds normal. No respiratory distress. No stridor. She has no wheezes. She has no rales. -Chest Wall: She exhibits no tenderness. ABD: The abdomen is soft. NEURO: NIHSS 7 (1a:1, 1b: 1, 4: 1, 6b: 1, 7: 1, 9: 1, 10: 1) SKIN: Skin is warm and dry. She is not diaphoretic. Course Course 1800: The patient was evaluated in room A10. A complete history and physical exam was performed Cardiac monitoring: An order was placed for continuous cardiac monitoring. The monitor shows a rate of 90 with sinus rhythm Code stroke called. 1819: [facility] who states he will evaluate the patient. 1912: CT shows 9 mm right cerebellar hypodensity could be artifactual or represent an age-indeterminate lacunar infarct. CTA of the head and neck is wit hin normal limits. [facility] who reviewed the images and does not think that the patient has an acute stroke. He states that the patient is not a TPA candidate and recommends MRI and EEG. Administered Medications Apixaban (Apixaban 5 Mg Tablet) 5 mg PO BID ALISSA Stop: 03/02/21 00:14 Last Admin: 01/31/21 00:33 Dose: 5 mg Documented by: [id number] Gabapentin (Gabapentin 600 Mg Tab) 600 mg PO BID ALISSA Stop: 03/02/21 00:14 Last Admin: 01/31/21 00:33 Dose: 600 mg Documented by: [id number] Sodium Chloride (Nss 1000ml) 1,000 mls @ 100 mls/hr IV .Q10H ALISSA Stop: 01/31/21 19:54 Last Admin: 01/31/21 00:34 Dose: 100 mls/hr Documented by: [id number] Oxybutynin Chloride (Oxybutynin Chloride Xl 5 Mg Tabcr) 10 mg PO HS ALISSA Stop: 03/02/21 00:14 Last Admin: 01/31/21 00:34 Dose: 10 mg Documented by: [id number] Rosuvastatin Calcium (Rosuvastatin Calcium 20 Mg Tab) 20 mg PO HS ALISSA Stop: 03/02/21 00:14 Last Admin: 01/31/21 00:34 Dose: 20 mg Documented by: [id number] Venlafaxine HCl (Venlafaxine Hcl Xr 150 Mg Capxr) 150 mg PO BID ALISSA Stop: 03/02/21 00:14 Last Admin: 01/31/21 00:34 Dose: 150 mg Documented by: [id number] Discontinued Medications Gadobutrol (Gadobutrol 10ml Vial) 8 ml IV ONCE ONE Stop: 01/30/21 23:16 Last Admin: 01/30/21 23:16 Dose: 8 ml Documented by: [id number] Lorazepam (Ativan) 0.5 mg in 1 mls @ 1 mls/min IV NOW STA Stop: 01/30/21 22:14 Last Admin: 01/30/21 22:29 Dose: 1 mls/min Documented by: [id number] Lorazepam (Ativan) 0.5 mg in 1 mls @ 1 mls/min IV NOW STA Stop: 01/30/21 22:45 Last Admin: 01/30/21 23:02 Dose: 1 mls/min Documented by: [id number] Ioversol (Optiray 320 125ml) 110 ml IV ONCE ONE Stop: 01/30/21 18:28 Last Admin: 01/30/21 18:28 Dose: 110 ml Documented by: [id number] Lorazepam (Lorazepam 2 Mg/4 Ml Vial) Confirm Administered Dose 2 mg .ROUTE .STK- MED ONE Stop: 01/30/21 22:18 Last Admin: 01/30/21 22:39 Dose: Not Given Documented by: [id number] Medical Decision Making Laboratory Data Result diagrams: 01/30/21 17:10 01/30/21 17:10 Lab Results 01/30/21 01/30/21 01/30/21 Range/Units 17:10 17:10 17:10 WBC 10.20 (4.8-10.8) K/uL RBC 5.42 H (4.2-5.4) M/uL Hgb 17.1 H (12.0-16.0) g/dL Hct 50.1 H (37-47) % MCV 92.4 (80-100) fL MCH 31.5 (25-34) pg MCHC 34.1 (32-36) g/dL RDW Std Deviation 48.4 H (36.4-46.3) fL RDW Coeff of [place] 14.4 (11.5-14.5) % Plt Count 372 (130-400) K/uL MPV 11.1 H (7.4-10.4) fL PT 10.1 (9.0-12.0) Seconds INR 1.0 (0.9-1.1) APTT 27.2 (21.0-31.0) Seconds PTT Ratio 1.0 Sodium 141 (136-145) mmol/L Potassium 3.5 (3.5-5.1) mmol/L Chloride 107 (98-107) mmol/L Carbon Dioxide 28 (21-32) mmol/L Anion Gap 6.0 (3-11) BUN 14 (7-18) mg/dl Creatinine 1.24 H (0.6-1.2) mg/dl Est Cr Clr Drug Dosing 34.5 ml/min Est GFR ( Amer) 47.5 ml/min Est GFR (Non-Af Amer) 41.0 ml/min BUN/Creatinine Ratio 11.0 (10-20) Glucose 173 H (70-99) mg/dl Calcium 9.1 (8.5-10.1) mg/dl Magnesium 2.1 (1.8-2.4) mg/dl Total Bilirubin 0.7 (0.2-1) mg/dl AST 21 (15-37) U/L ALT 33 (12-78) U/L Alkaline Phosphatase 119 H (45-117) U/L Total Protein 7.2 (6.4-8.2) gm/dl Albumin 3.4 (3.4-5.0) gm/dl Globulin 3.8 (2.5-4.0) gm/dl Albumin/Globulin Ratio 0.9 (0.9-2) TSH (0.300-4.500) uIu/ml Free T4 (0.8-1.6) ng/dl COVID-19 Eval Order SARS-CoV-2 (PCR) (Negative) 01/30/21 01/30/21 01/30/21 Range/Units 17:10 19:23 19:23 WBC (4.8-10.8) K/uL RBC (4.2-5.4) M/uL Hgb (12.0-16.0) g/dL Hct (37-47) % MCV (80-100) fL MCH (25-34) pg MCHC (32-36) g/dL RDW Std Deviation (36.4-46.3) fL RDW Coeff of [place] (11.5-14.5) % Plt Count (130-400) K/uL MPV (7.4-10.4) fL PT (9.0-12.0) Seconds INR (0.9-1.1) APTT (21.0-31.0) Seconds PTT Ratio Sodium (136-145) mmol/L Potassium (3.5-5.1) mmol/L Chloride (98-107) mmol/L Carbon Dioxide (21-32) mmol/L Anion Gap (3-11) BUN (7-18) mg/dl Creatinine (0.6-1.2) mg/dl Est Cr Clr Drug Dosing ml/min Est GFR ( Amer) ml/min Est GFR (Non-Af Amer) ml/min BUN/Creatinine Ratio (10-20) Glucose (70-99) mg/dl Calcium (8.5-10.1) mg/dl Magnesium (1.8-2.4) mg/dl Total Bilirubin (0.2-1) mg/dl AST (15-37) U/L ALT (12-78) U/L Alkaline Phosphatase (45-117) U/L Total Protein (6.4-8.2) gm/dl Albumin (3.4-5.0) gm/dl Globulin (2.5-4.0) gm/dl Albumin/Globulin Ratio (0.9-2) TSH 5.280 H (0.300-4.500) uIu/ml Free T4 1.08 (0.8-1.6) ng/dl COVID-19 Eval Order Covid19 at [facility] SARS-CoV-2 (PCR) NEGATIVE (Negative) Imaging Data Radiologist's Impression: Chest X-Ray 01/30/21 17:45 XR chest 1V portable CLINICAL HISTORY: stroke alert COMPARISON STUDY: Chest radiograph January 19, 2021. FINDINGS: Lung volumes are normal. Lungs are clear. There is no pneumothorax or pleural effusion. Cardiac size is stable. Mediastinal contours are normal. There is no evidence for pulmonary edema. Loop recorder device is incidentally noted. IMPRESSION: No acute cardiopulmonary findings. ACT 112: Negative or not required by law. Electronically signed by: Manolo Rueda M.D. 01/30/2021 6:[address] 01/30/21 17:45 CT OF THE HEAD WITHOUT CONTRAST CLINICAL HISTORY: Stroke Alert COMPARISON STUDY: Head CT, CTA of the head and MRI of the brain January 19, 2021. TECHNIQUE: Helical axial images of the head were obtained without IV contrast. Automated exposure control was utilized for the study. A dose lowering techniqu e was utilized adhering to the principles of ALARA. FINDINGS: No acute intracranial hemorrhage, midline shift or mass effect is present. The ventricular system is stable. Basal cisterns are patent. There are no extra-axial collections. White matter hypodensities are unchanged and suggest small vessel disease. A 9 mm hypodensity within the right cerebellar hemisphere on image 7 of 28 was not evident on prior exam. There are no findings to suggest acute dural sinus thrombosis or acute territorial infarct. Hyperdense material within the distal left vertebral artery is unchanged. There are no significant calvarial abnormalities. IMPRESSION: 1. No acute intracranial hemorrhage or mass effect. 2. 9 mm right cerebellar hypodensity. This could be artifactual or represent an age indeterminate lacunar infarct. ACT 112: Negative or not required by law. Electronically signed by: Manolo Rueda M.D. 01/30/2021 6:38 PM Head CTA 01/30/21 18:00 CTA ANGIOGRAPHY OF THE HEAD CLINICAL HISTORY: tia COMPARISON STUDY: CTA of the head March 21, 2021. TECHNIQUE: Helical axial images of the head were obtained following uneventful intravenous administration of Optiray. Sagittal and coronal reconstructions were viewed as well as maximal intensity projections on an independent 3-D workstation. Automated exposure control was utilized for the study. A dose lowering technique was utilized adhering to the principles of ALARA. FINDINGS: No acute intracranial hemorrhage, midline shift or mass effect is p resent. White matter hypodensities suggest small vessel disease. Ventricular system is stable. A 4 mm saccular aneurysm arising from the distal right middle cerebral artery is unchanged since prior examination. A 2 mm aneurysm arising from the basilar artery is unchanged. Hyperdense material adjacent to the distal cervical portion of the left vertebral artery is unchanged. The left vertebral artery is dominant. Multifocal stenoses within the intracranial vessels are similar to prior exam. These are most pronounced within a sylvian branch of the left middle cerebral artery. No central vessel occlusion is present. IMPRESSION: 1. No change since CTA of January 19, 2021. 2. No central vessel occlusion. 3. No change in a 4 mm saccular aneurysm of the distal right middle cerebral artery and a 2 mm basilar artery aneurysm. 4. Multifocal stenoses within the intracranial vessels which are unchanged. ACT 112: Negative or not required by law. Electronically signed by: Manolo Rueda M.D. 01/30/2021 7:08 PM Neck CTA 01/30/21 18:00 CT ANGIOGRAPHY OF THE NECK WITH CONTRAST CLINICAL HISTORY: tia COMPARISON STUDY: CTA of the neck January 19, 2021. Technique: CT angiography of the carotid and vertebral arteries was obtained us ing Optiray and 3D reconstruction on an independent workstation. NASCET criteria was utilized. Automated exposure control was utilized for the study. A dose lowering technique was utilized adhering to the principles of ALARA. CT DOSE: 1057.97 mGy.cm Findings: The left vertebral artery is dominant. Severe stenosis at the origin of the left vertebral artery is unchanged since CT of January 19, 2021. No additional stenoses within the cervical portion of the left vertebral artery are present. Occlusion of the proximal to mid right vertebral artery with distal reconstitution is unchanged since prior CTA. The right vertebral artery is diminutive. There is mild stenosis of the left common carotid artery at the vessel origin. There is moderate plaque within the proximal left internal carotid artery without significant stenosis. A 5 mm outpouching of the proximal right internal carotid artery is unchanged with possible associated small focal dissection. The appearance of the neck is unchanged since prior examination. IMPRESSION: 1. No change since CTA of January 19, 2021. 2. Severe stenosis at the origin of the left vertebral artery. Occlusion of the proximal to mid right vertebral artery with distal reconstitution. 3. Stable 5 mm outpouching of the proximal right internal carotid artery with possible associated short segment dissection, unchanged. 4. Moderate atherosclerotic plaque within the major vessels of the neck, as described above. ACT 112: Negative or not required by law. Electronically signed by: Manolo Rueda M.D. 01/30/2021 6:59 PM ECG Data Indication: + altered mental status Rate (beats per minute): 75 Rhythm: + normal sinus ECG Intervals/blocks: + Normal FL and + Normal QT-c ECG ST segments: + Normal ST segments Additional Comments: QRS 72 MDM Narrative 1800: The patient was evaluated in room A10. A complete history and physical exam was performed Cardiac monitoring: An order was placed for continuous cardiac monitoring. The monitor shows a rate of 90 with sinus rhythm Code stroke called. 1819: Discussed with [facility] Dr. Mancera who states he will evaluate the patient. 1913: CT shows 9 mm right cerebellar hypodensity could be artifactual or represent an age-indeterminate lacunar infarct. CTA of the head and neck is within normal limits. Discussed with [facility] Dr. Mancera who reviewed the images and does not think that the patient has an acute stroke. He states that the patient is not a TPA candidate and recommends MRI and EEG. Impression & Plan Brain TIA Discharge Plan Visit Data Chief Complaint: TIA Symptoms Stated Complaint: NEURO/STROKE SYMPTOMS Discharge Problem: Brain TIA Patient Disposition: Admitted As Inpatient Discharge Instructions Interventions: ED Discharge Assessment Last Done: 01/30/21 23:15
[2021-01-31] MEDS: LEVOTHYROXINE SODIUM 75 MCG TABLET PO SCH (05:38)
[2021-01-31 06:33] LABS: Basophils # (auto) 0.02 K/uL (0-0.2); Basophils % (auto) 0.2 %; Eosinophils # (auto) 0.33 K/uL (0-0.5); Eosinophils % (auto) 3.2 %; Hematocrit (blood only) 50.3 % (37-47); Hemoglobin 17.1 g/dL (12.0-16.0); Immature Granulocytes # (auto) 0.05 K/uL (0.00-0.02); Immature Granulocytes % (auto) 0.5 %; Lymphocytes # (auto) 1.43 K/uL (1.2-3.4); Lymphocytes % (auto) 13.8 %; Mean Corpuscular Hemoglobin 31.7 pg (25-34); Mean Corpuscular Volume 93.1 fL (80-100); Mean Platelet Volume 10.7 fL (7.4-10.4); Monocytes # (auto) 1.09 K/uL (0.11-0.59); Monocytes % (auto) 10.5 %; Neutrophils # (auto) 7.42 K/uL (1.4-6.5); Neutrophils % (auto) 71.8 %; Platelet Count 333 K/uL (130-400); RDW Coefficient of Variation 14.7 % (11.5-14.5); RDW Standard Deviation 49.5 fL (36.4-46.3); White Blood Count 10.34 K/uL (4.8-10.8)
[2021-01-31 07:20] LABS: BUN Creatinine Ratio 11.3 (10-20); Calcium 9.2 mg/dl (8.5-10.1); Creatinine Clr Calc Pharmacy 32.4 ml/min; Est GFR (African American) 44.1 ml/min; Potassium 3.5 mmol/L (3.5-5.1)
[2021-01-31] MEDS: PANTOprazole 40 MG TAB PO PRN (07:56)
[2021-01-31] MEDS: ANASTROZOLE 1 MG TAB PO SCH (07:57)
[2021-01-31] MEDS: ASPIRIN 81 MG ECTAB PO SCH (07:57)
--- NOTE | 2021-01-31 08:18 | Magnetic Resonance Report ---
MRI OF THE BRAIN WITHOUT AND WITH IV CONTRAST CLINICAL HISTORY: tia/stroke. Left facial droop. Slurred speech. Confusion. COMPARISON STUDY: Head CT and CTA of the head January 30, 2021. MRI the brain January 19, 2021. TECHNIQUE: Utilizing a 1.5 Joy magnet and dedicated coil, multiplanar, multiecho imaging of the br ain was performed pre and postcontrast administration. IV administration of 8 mL of Gadavist contras t was uneventful. FINDINGS: This exam is mildly compromised by motion artifact although is diagnostic. There are no foc i of restricted diffusion to suggest acute infarct. No acute intracranial hemorrhage, midline shift o r mass effect is present. Ventricular system is unchanged from earlier exams. Basal cisterns are talley nt. There are no extra-axial collections. No intracranial mass or pathologic enhancement is identifie d. Extensive white matter T2 hyperintensity is unchanged previous MRI. This represents small vessel d isease. There are old lacunar infarcts within the bilateral thalami and basal ganglia. Calvarial sign al is normal. IMPRESSION: 1. No acute intracranial findings. 2. No intracranial mass or pathologic enhancement. 3. No change in appearance of the brain since MRI of January 19, 2021. ACT 112: Negative or not required by law. Electronically signed by: Manolo Rueda M.D. 01/31/2021 8:17 AM
--- NOTE | 2021-01-31 08:51 | Electrocardiogram Report ---
Test Reason : Blood Pressure : / mmHG Vent. Rate : 075 BPM Atrial Rate : 075 BPM P-R Int : 180 ms QRS Dur : 072 ms QT Int : 426 ms P-R-T Axes : -06 -12 068 degrees QTc Int : 475 ms Normal sinus rhythm Possible Old Inferior infarct (cited on or before 05-DEC-2019) Abnormal ECG When compared with ECG of 19-JAN-2021 12:53, No significant change was found Confirmed by Miguel Walker ([id number]) on 01/31/2021 8:50:50 AM Referred By: REFERRED SELF Confirmed By:Miguel Walker
--- NOTE | 2021-01-31 10:21 | Electrocardiogram Report ---
Test Reason : Blood Pressure : / mmHG Vent. Rate : 083 BPM Atrial Rate : 083 BPM P-R Int : 192 ms QRS Dur : 072 ms QT Int : 410 ms P-R-T Axes : 010 -13 054 degrees QTc Int : 481 ms Normal sinus rhythm Possible Old Inferior infarct (cited on or before 05-DEC-2019) Abnormal ECG When compared with ECG of 30-JAN-2021 17:02, No significant change was found Confirmed by Mgiuel Walker ([id number]) on 01/31/2021 10:21:48 AM Referred By: REFERRED SELF Confirmed By:Miguel Walker
--- NOTE | 2021-01-31 10:31 | Neurology Consultation ---
Date of Consultation January 31, 2021 Assessment & Plan (1) PA (obstructive sleep apnea): (2) Carotid artery dissection: (3) Cerebral aneurysm without rupture: (4) Brain TIA: Sharon Ochoa is an 80 yo woman w/ PMH of diabetes complicated by nephropathy, known cerebral aneurysm, COPD, CKD 3, depression/anxiety, CLL, hypertension, hyperlipidemia, CAMPBELL, hypothyroidism, chronic right ICA dissection, left vertebral artery stenosis, occlusion of right vertebral artery, history of stroke with no residual deficits, h/o CEA, h/o coil embolization of left PICA aneurysm, prior tobacco abuse, history of transient A. fib and metastatic breast cancer s/p radiation and chemotherapy who presents to [facility] with acute onset of difficulty speaking, facial droop, confusion and weakness. 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 Query whether she meets criteria for fibromuscular dysplasia (I do not have her records of prior DSA available for reviewing). Stroke WorkUp: - CT head: shows no hemorrhage or hypodensity, moderate to severe SVID noted, as well as mild to moderate generalized atrophy - CTA head/neck: shows stable known left PICA coil embolization, stable right proximal vertebral artery occlusion, left vertebral artery stenosis the V4 segment, stable chronic right ICA dissection, and stable aneurysms with no new LV or aneurysm noted. - MRI brain: shows no acute infarct, chronic infarct in the right thalamus, small cyst in the right basal ganglia, extensive SVID with confluent white matter hyperintensities, no contrast-enhancing lesions, and mild to moderate generalized atrophy. - TTE: pending (prior in 11/2019 showed hyperdynamic LV with EF >70%, mild AV sclerosis without stenosis, grade I diastolic dysfunction) - Telemetry: NSR so far, pending - A1c: 10.6 - FLP: 57 - TSH: mildly elevated with normal free T4 Stroke Management: - Acute treatment: n/a, outside of time window - Continuous cardiac monitoring, recommend pacemaker interrogation - Vitals, Neurochecks, NIHSS per unit routine - BP parameters: SBP CAP 180, restart home anti-hypertensives for goal normotension over next 3-4 days - Complete ischemic stroke workup with TTE without bubble - Consult speech, PT, OT for supportive management - Will area counselor concerning stroke education, smoking cessation, healthy diet, physical activity, weight loss - Follow up with PCP for assistance with outpatient goals (BP <130/80, LDL <70, A1c <7) - Follow up in neurology clinic in 6-8 weeks with [facility] Secondary Stroke Prevention: - Antiplatelet: would discuss with cardiology the need to be on AP + AC (do not see a h/o CAD but does have uncontrolled DM) - Anticoagulation: ok to start apixaban - Statin: continue home rosuvastatin 20mg daily (at goal for LDL) HTN: - BP parameters, as above - Restart home medications with goal of lowering BP to normotension over next 3- 4 days FEN/GI: - Diet: Beside dysphagia to clear patient for PO meds/Cardiac HH diet - Monitor lytes and replete PRN Glucose Control: - Sliding scale insulin and accuchecks per primary team to avoid hyperglycemia # Confusion: - would consider tapering down medications according to Beers criteria (would not recommend benzos, opiates, PPI unless absolutely needed, or hydroxyzine). Would ensure that gabapentin is renally dosed (would not give more than 900mg daily in 2-3 doses given her GFR). Thank you for this interesting consult. Plan of care was discussed with primary team. Please call or text with any questions. (5) Metastatic breast carcinoma: (6) Recurrent cancer of right breast: (7) Short-term memory loss: History of Present Illness Attending Physician: Jani Domingo DO History of Present Illness Sharon Ochoa is an 80 yo woman w/ PMH of diabetes complicated by nephropathy, known cerebral aneurysm, COPD, CKD 3, depression/anxiety, CLL, hypertension, hyperlipidemia, CAMPBELL, hypothyroidism, chronic right ICA dissection, left vertebral artery stenosis, occlusion of right vertebral artery, history of stroke with no residual deficits, h/o CEA, h/o coil embolization of left PICA aneurysm, prior tobacco abuse, history of transient A. fib and metastatic breast cancer s/p radiation and chemotherapy who presents to [facility] with acute onset of difficulty speaking, facial droop, confusion and weakness. 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 In the ED, she was afebrile, BP 155/89, heart rate 77, respiratory rate 12, satting 95% room air. Labs notable for WBC 10.2, hemoglobin mildly elevated at 17.1, platelets 372, sodium 141, potassium 3.5, creatinine mildly elevated 1.24, glucose 173, INR 1.0, calcium/magnesium within normal, AST/ALT within normal, TS H mildly elevated with normal free T4, Covid negative. LDL 57, recent A1c elevated at 10.6. UA no infection., Pavel 2 mutation pending. Imaging independently reviewed. CT head shows no hemorrhage or hypodensity, moderate to severe SVID noted, as well as mild to moderate generalized atrophy. CTA H&N shows stable known left PICA coil embolization, stable right proximal vertebral artery occlusion, left vertebral artery stenosis the V4 segment, stable chronic right ICA dissection, and stable aneurysms with no new LV or aneurysm noted. MRI brain shows no acute infarct, chronic infarct in the right thalamus, small cyst in the right basal ganglia, extensive SVID with confluent white matter hyperintensities, no contrast-enhancing lesions, and mild to moderate generalized atrophy. On examination, she reports that she does not remember why she came in. Does think that she may have missed some medication doses but is not sure. Denied any current weakness, numbness, vision changes or other neurological symptoms. Allergies Allergy/AdvReac Type Severity Reaction Status Date / Time adhesive Allergy Intermediate BLISTERS Verified 01/30/21 17:45 amitriptyline AdvReac Intermediate HALLUCINATI Verified 01/30/21 17:45 ONS atorvastatin AdvReac Intermediate JOINT PAIN Verified 01/30/21 17:45 cephalexin AdvReac Intermediate N/V Verified 01/30/21 17:45 pioglitazone AdvReac Intermediate SEVERE Verified 01/30/21 17:45 FATIGUE tramadol AdvReac Intermediate N/V Verified 01/30/21 17:45 codeine AdvReac Mild NAUSEA AND Verified 01/30/21 17:45 VOMITING doxycycline AdvReac Mild GI SYMPTOMS Verified 01/30/21 17:45 hydroxychloroquine AdvReac Mild Diarrhea Verified 01/30/21 17:45 [From Plaquenil] liraglutide AdvReac Mild GI UPSET Verified 01/30/21 17:45 metformin AdvReac Mild NAUSEA AND Verified 01/30/21 17:45 VOMITING phenol AdvReac Mild GI UPSET Verified 01/30/21 17:45 propylene glycol AdvReac Mild GI UPSET Verified 01/30/21 17:45 saccharin AdvReac Mild diarrhea Verified 01/30/21 17:45 zoster vaccine live AdvReac Unknown Unknown Verified 01/30/21 17:45 [From Zostavax (PF)] Home Medications Medication Instructions Recorded Confirmed Type vit C-vit B-wsothr-jqeh ox-lutein 1 cap PO QAM 09/04/18 01/30/21 History 226 mg-200 unit-5 mg-0.8 mg capsule (PreserVision Lutein) aspirin 81 mg chewable tablet 81 mg PO QAM 01/21/19 01/30/21 History rosuvastatin 20 mg tablet (Crestor) 20 mg PO HS tab 05/04/20 01/30/21 History cetirizine 10 mg tablet 10 mg PO QAM 09/09/20 01/30/21 History hydroxyzine HCl 25 mg tablet 25 mg PO BID PRN 09/09/20 01/30/21 History insulin aspart U-100 100 unit/mL 20 unit SUBCUT TID ml 09/09/20 01/30/21 History (3 mL) subcutaneous pen (Novolog Flexpen U-100 Insulin aspart) omeprazole 40 mg capsule,delayed 40 mg PO DAILY PRN cap 09/09/20 01/30/21 History release levothyroxine 75 mcg capsule 75 mcg PO QAM 09/13/20 01/30/21 History (Tirosint) oxybutynin chloride 5 mg 10 mg PO HS 09/13/20 01/30/21 History tablet,extended release 24 hr clopidogrel 75 mg tablet 75 mg PO QAM #90 tab 10/26/20 01/30/21 Rx hydrocodone 5 mg-acetaminophen 325 1 - 2 tab PO .COMPLEX PRN #30 tab 12/02/20 01/30/21 Rx mg tablet MDD 6 tabs lorazepam 0.5 mg tablet 0.5 mg PO TID PRN #30 tab 12/02/20 01/30/21 Rx gabapentin 300 mg capsule 600 mg PO BID #360 cap 12/03/20 01/30/21 Rx venlafaxine 150 mg 150 mg PO BID #180 cap 12/14/20 01/30/21 Rx capsule,extended release 24 hr silver sulfadiazine 1 % topical 1 applic TOPICAL BID #85 g 01/03/21 01/30/21 Rx cream (Silvadene) anastrozole 1 mg tablet 1 mg PO DAILY 01/19/21 01/30/21 History insulin detemir U-100 100 unit/mL 40 unit SUBCUT BID #30 ml 01/26/21 01/30/21 Rx (3 mL) subcutaneous pen (Levemir FlexTouch U-100 Insulin) Patient History Medical History Allergic rhinitis Aneurysm, cerebral, nonruptured Repaired with stent> 2016 Per 12/05/2019 head CTA = postprocedural changes involving the distal left vertebral artery. 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 Anxiety Asthma well controlled per pt > no inhalers Asymptomatic hyperuricemia Atrial aneurysm Atrial fib/flutter, transient Follows [facility] > no cardioversions Loop recorder in place - [employer]- placed 09/05/18 Breast cancer DX in 2009> bilat mastectomy >no chemo Recently diagnosed with metastatic right breast carcinoma 08/13/20 Carotid artery dissection Carotid artery stenosis Follows with [facility]. S/p CEA years ago Per 12/05/2019 neck CTAatheromatous changes involving both ICAs without evidence of hemodynamically significant stenosis. Short segment dissection of proximal ICA. Central stenosis of spinal canal Chronic kidney disease, stage 3 follows PCP > Dr. De La Cruz Chronic obstructive pulmonary disease has more difficulty at night with breathing. ok during day On oxygen in the past but no longer using CLL (chronic lymphocytic leukemia) Coronary artery calcification Deep vein thrombosis several yrs ago> left leg > caused from control pills Depression Diabetes mellitus type 2, uncontrolled IDDM Diabetic nephropathy Diverticulosis Gait disturbance Gastroesophageal reflux disease Hyperlipidemia Hyperplastic colon polyp Hypertension Hypothyroidism Internal hemorrhoids Left hemiparesis From stroke in November 2019 Lumbar radiculopathy Lumbar spinal stenosis Lumbar stenosis with neurogenic claudication Nicotine dependence Nodule of chest wall right lateral Nonalcoholic steatohepatitis Obesity On home oxygen therapy no longer using at this time Osteoarthritis bilateral knees, legs, hands Osteopenia Polycythemia Polyuria Seborrheic keratosis Sensorineural hearing loss (SNHL) of both ears Short-term memory loss Sleep apnea Sleep related hypoxia Sleep apnea > does not use CPAP Stroke December 05, 2019 > [facility] > has short term memory loss as result > left side weakness TMJ syndrome Urinary frequency Urinary incontinence Vertigo Vitamin D deficiency Surgical History H/O varicose vein ligation and stripping left leg History of appendectomy History of brain surgery Cerebral angiogram and stent-assisted coil embolization of the It PICA aneurysm. 12/22/2015 > follows with [facility] History of breast lump/mass excision History of carotid endarterectomy over 6 yrs ago > [facility] History of cataract surgery Right: July 2012 Left: August 2012 History of colonoscopy History of hysterectomy Ovaries intact History of mastectomy bilateral September 2009 History of parathyroid surgery Excision of benign neoplasm History of shoulder surgery Right shoulder arthroscopic labral debridement, subacromial decompression, and acromioplasty excision distal clavicle, biceps tenotomy. 06/15/2014 History of total knee replacement left 01/11/2012 Hx of tonsillectomy Family History Grandmother No problems noted. Father , in his 50s of lung cancer Lung disease Lung cancer Mother , in her 70s of cancer Cancer Hypertension Unknown , Niece at 37 Colon cancer Son Anxiety Depression Kidney stones Alcohol abuse Grandmother (Maternal) Lung cancer Sister COPD (chronic obstructive pulmonary disease) Son MVA (motor vehicle accident) Son Rheumatic fever Daughter Medical history unknown Denies family history of Ovarian cancer Prostate cancer Myocardial infarction Breast cancer Bleeding disorder Social History Smoking Status: Former smoker Tobacco Type: Cigarettes Age Started Using Tobacco: 16; Years Smoked: 60; Cigarettes Per Day: 2; Second Hand Exposure: Yes; Hx Alcohol Use: No Hx Substance Use: No Preferred Language: Czech Communication Ability: Effective Visual Impairment: No Limitations Hearing Ability: Normal Judge'S Clerk Required: No Beliefs That Will Affect Care: None marital status: Current Living Situation: Spouse Current Living Situation Comment: Home current occupational status: retired 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 Exam (Neuro) Physical Exam: General Exam: GEN: NAD, lying down in examination bed. HEENT: No conjunctival injection, no rhinorrhea CV: RRR on monitor, no significant edema. PULM: Nonlabored respirations on room air. Neuro Exam: MS: Awake and Alert. Oriented to person, place, and month/year. Speech fluent and appropriate without dysarthria or paraphasic errors. Language intact including naming, comprehension, repetition. Cognition and memory mildly impaired. Attention intact. No neglect. CN: Visual clay full. No extinction to double simultaneous stimuli. Unable to visualize fundi on fundoscopic exam. PERRLA OU. EOMI without nystagmus. Facial sensation intact to LT. Facial muscles full and symmetric. Hearing intact to conversation. Uvula midline with symmetric palatal elevation. Shoulder shrug normal. Tongue midline. MOTOR: Normal bulk and tone. No pronator drift. BUE strength 5/5 at deltoids, biceps, triceps, wrist flexors and extensors, and finger flexors bilaterally. BLE strength 5-/5 at iliopsoas, hamstrings, quadriceps, tibialis anterior, and gastrocnemius bilaterally. REFLEXES: 1+ at biceps, triceps, brachioradialis, trace patella, and absent Achilles bilaterally. Flexor plantar responses bilaterally. SENSORY: Intact to LT throughout, no extinction to double simultaneous stimuli. Vibration diminished in BLEs up to the knees. COORDINATION: No dysmetria or ataxia on [id number] bilaterally. Normal Romina bilaterally. GAIT: Deferred due to physical status. NIH STROKE SCALE 1A. Level of Consciousness (0-3) = 0 1B. LOC Questions (0-2) = 0 1C. LOC Commands (0-2) = 0 2. Best Horizontal Gaze (0-2) = 0 3. Visual Clay (0-3) = 0 4. Facial Palsy (0-3) = 0 5. Motor Arm Right (0-4) = 0 Left (0-4) = 0 6. Motor Leg Right (0-4) = 0 Left (0-4) = 0 7. Limb Ataxia (0-2) = 0 8. Sensory (0-2) = 0 9. Best Language (0-3) = 0 10. Dysarthria (0-2) = 0 11. Extinction and Inattention (0-2) = 0 NIHSS TOTAL = 0 Results & Data ([facility]) Vital Signs (Past 12 Hours) Vital Signs Temp Pulse Pulse Resp BP BP Pulse Ox 01/31/21 07:30 84 01/31/21 06:57 36.3 C L 84 20 130/79 96 01/31/21 04:08 37.0 C 83 20 131/72 92 01/31/21 00:47 88 01/30/21 23:59 37.2 C 86 18 136/80 91 01/30/21 23:15 37.1 C 75 20 177/75 H 98 01/30/21 22:40 37.1 C 75 20 167/88 H 98 PG Care Time/CCT Total # of Minutes Spent Total Time Spent with Patient: Total time spent is greater than 50% in coordination of care (as documented) at patient's floor/unit and/or counseling patient: 70 Coding Level of Care Code INT OBSERVATION CARE 70M LVL 3 Diagnoses PA (obstructive sleep apnea) G47.33 Carotid artery dissection I77.71 Cerebral aneurysm without rupture I67.1 Brain TIA G45.9 Metastatic breast carcinoma C50.919 Recurrent cancer of right breast C50.911 Short-term memory loss R41.3
--- NOTE | 2021-01-31 12:41 | XCELERA ---
[id number]
--- NOTE | 2021-01-31 16:37 | Hospitalist Progress Note ---
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 Exam 113/64, 88, 20, 36.5, 92% on room air She is sleeping better though awakens to my voice. She has no complaints. She is unsure as to why she is admitted to the hospital. She does recall seeing other physicians, although was unable to tell me what she learned from these consultations. Data WBC 10.34, hemoglobin 17.1, platelet count 333 BUN 15, creatinine 1.32 TSH 5.28, free T4 1.08 MRI of the brain showed no acute intracranial findings. Assessment and Plan I agree with the impression and plan as noted the resident documentation TIA Appreciate neurology consultation Was to clarify findings of previous loop recorder, although prior notes indicate that she had rare atrial tachycardia no episodes of atrial fibrillation (she is currently on Eliquis, which was started this admission). PT/OT consultation Stroke risk factor management Alisha Ochoa is an 80 year old woman who was brought in for confusion and new onset left sided facial droop. Imaging was negative (no TPA). She was previously admitted 01/19 for a similar presentation and diagnosed with suspected TIA. She also has a history of an old right-sided stroke Today, she was resting comfortably. She complains of fatigue and generalized weakness in her arms, which is not unusual for her. Otherwise, she has no complaints. Review of Systems Constitutional: as per Subjective / HPI Physical Exam Constitutional: + frail appearing Neck: + thick neck Respiratory: Auscultation: + crackles (lower left lung field; mild) Cardiovascular: RRR, no murmur, no edema Gastrointestinal (Abdomen): normal bowel sounds, soft, nontender, no hepatosplenomegaly Neurologic: Cranial Nerves: normal facial strength (some L-sided weakness but no definitive focal deficit with CN7 exam) Results & Data Results & Data ([facility]) Vital Signs (Past 12 Hours) Vital Signs Temp Pulse Pulse Resp BP Pulse Ox 01/31/21 15:47 88 01/31/21 15:27 36.5 C 85 20 113/64 92 01/31/21 11:33 36.8 C 84 18 103/63 93 01/31/21 07:30 84 01/31/21 06:57 36.3 C L 84 20 130/79 96 Resident Activity Tracking Resident Involvement: Resident Care Provided Care Provided: Adult Hospital Medicine
[2021-01-31] MEDS ORDERED: GLUCOSE 40% GEL 15 GM TUBE PO PRN (20:21)
[2021-01-31] MEDS ORDERED: CARBOHYDRATES FOR HYPOGLYCEMIA PO PRN (20:21)
[2021-01-31] MEDS ORDERED: GLUCOSE 10 TABS/TUBE PO PRN (20:21)
[2021-01-31] MEDS ORDERED: DEXTROSE 50% 50 ML SYRINGE IV PRN (20:21)
[2021-01-31] MEDS ORDERED: GLUCAGON FOR INJ 1 MG VIAL SQ PRN (20:21)
[2021-01-31] MEDS: INSULIN ASPART 100 UNITS/ML 3 ML PEN SC SCH (21:23)
[2021-02-01] MEDS: LEVOTHYROXINE SODIUM 75 MCG TABLET PO SCH (05:38)
[2021-02-01] MEDS ORDERED: LORazepam 0.25 MG/0.5 ML VIAL IV STA (06:03)
[2021-02-01 06:55] LABS: Basophils # (auto) 0.02 K/uL (0-0.2); Basophils % (auto) 0.2 %; Eosinophils % (auto) 3.3 %; Hematocrit (blood only) 47.7 % (37-47); Hemoglobin 15.7 g/dL (12.0-16.0); Immature Granulocytes # (auto) 0.04 K/uL (0.00-0.02); Immature Granulocytes % (auto) 0.4 %; Lymphocytes # (auto) 1.69 K/uL (1.2-3.4); Lymphocytes % (auto) 18.7 %; Mean Corpuscular Hemoglobin 30.8 pg (25-34); Mean Corpuscular Hgb Conc 32.9 g/dL (32-36); Mean Corpuscular Volume 93.7 fL (80-100); Mean Platelet Volume 10.7 fL (7.4-10.4); Monocytes # (auto) 0.81 K/uL (0.11-0.59); Neutrophils # (auto) 6.17 K/uL (1.4-6.5); Neutrophils % (auto) 68.4 %; Platelet Count 295 K/uL (130-400); RDW Coefficient of Variation 14.6 % (11.5-14.5); RDW Standard Deviation 49.5 fL (36.4-46.3); Red Blood Count 5.09 M/uL (4.2-5.4); White Blood Count 9.03 K/uL (4.8-10.8)
[2021-02-01 07:30] LABS: BUN Creatinine Ratio 12.7 (10-20); Calcium 9.1 mg/dl (8.5-10.1); Creatinine Clr Calc Pharmacy 26.6 ml/min; Est GFR (African American) 34.9 ml/min; Est GFR (Non-African American) 30.1 ml/min; Potassium 4.5 mmol/L (3.5-5.1)
[2021-02-01 07:57] VITALS: PULSE 79
[2021-02-01] MEDS: GABAPENTIN 600 MG TAB PO SCH (08:39)
[2021-02-01] MEDS: ANASTROZOLE 1 MG TAB PO SCH (08:39)
[2021-02-01] MEDS: APIXABAN 5 MG TABLET PO SCH (08:39)
[2021-02-01] MEDS: ASPIRIN 81 MG ECTAB PO SCH (08:39)
[2021-02-01] MEDS: VENLAFAXINE HCL XR 150 MG CAPXR PO SCH (08:39)
[2021-02-01] MEDS: PANTOprazole 40 MG TAB PO PRN (08:39)
[2021-02-01] MEDS: INSULIN ASPART 100 UNITS/ML 3 ML PEN SC SCH ×2 (08:40→13:30)
[2021-02-01] MEDS ORDERED: INSULIN GLARGINE SOLOSTAR 100 UNITS/ML 3 ML PEN SC SCH (09:00)
--- NOTE | 2021-02-01 10:15 | Hospitalist Progress Note ---
Date of Service February 01, 2021 Assessment & Plan (1) Brain TIA: Plan: Suspected recurrent TIA -On Eliquis (Plavix d/c), ASA, Crestor * after further discussion with granddaughter, Petty, it appears that she was taking Plavix before her first admission in December. Per granddaughter, she was told prior to discharge by the attending and tele-neurologist from [place] that she would be switched to Eliquis since she'd had TIA while on Plavix but this was not addressed in the discharge note. They reached out to the hospital for clarification but did not receive a call back and Sharon stopped taking the Plavix. * This changes our preference for Plavix as it seems she had initial TIA while on it. * D/C on Eliquis 2.5 mg BID * scheduled outpatient f/u with Dr. Mccullough for further med titration as needed -Echo showed EF>70%, moderate LVOT obstruction -PT/OT for deconditioning--cleared pt for discharge to home -f/u with PCP (Dr. De La Cruz) after discharge Polycythemia -Hgb 17 on admission, 17.1 today -Likely secondary to history of tobacco use -JAK2 mutation labs pending Breast Cx -Continue Anastrazole Hypothyroidism -Continue Levothyroxine GERD -Continue Omeprazole Admission and Anticipated Discharge Date Admission Date: January 30, 2021 Supervising Physician Co-Signing Physician Notes I also saw the patient with the resident physician and confirmed rios portions of the history and exam. Upon exam today, the patient is out of bed sitting in the bedside chair. She is much more alert, awake, conversational today compared to yesterday. Collateral information was also obtained from family members and it seems as if the patient was on Plavix and aspirin prior to her most recent event. It sounds as if she was, never had resumed it after her most recent admission; nonetheless, it appears as if she had a neurologic event despite dual antiplatelet therapy. Thus, the addition of Eliquis seems more reasonable. Is noted that her loop recorder, to this point, has showed only atrial tachycardia and no evidence of atrial fibrillation. Exam 107/69, 79, 18, 37.1, 92% on room air Heart regular Lungs clear with nonlabored respirations Data CBC shows a white count of 9.03 and a hemoglobin of 15.7. Platelet count is 295 Sodium 139, potassium 4.5, BUN 20, creatinine 1.6 Assessment and Plan I agree with the impression and plan as noted the resident documentation TIA, Recurrent Patient to gather history from the patient and her family, along with previous neurology consultation, it does look as if she had a event on dual antiplatelet therapy. Thus, addition of Eliquis seems reasonable, although as noted above, no evidence of atrial fibrillation on her loop recorder. Given her age and current creatinine, recommend Eliquis 2.5 mg p.o. twice daily. If her baseline renal function stabilizes less than 1.5, could consider increasing to 5 mg twice daily, at this time would err on the side of the lower dose given her other comorbidities and concurrent aspirin. Subjective She is noticeably more awake and alert compared to yesterday. She feels great, and has no subjective complaints. Overnight, she received Ativan to calm her nerves, as her roommate was quite agitated. Review of Systems Review of Systems: All systems reviewed & are unremarkable except as noted in HPI & below Physical Exam Constitutional: WD/WN, vitals as above Neck: + thick neck Respiratory: normal respiratory effort, lungs clear to auscultation Cardiovascular: RRR, no murmur, no edema Results & Data Results & Data ([facility]) Vital Signs (Past 12 Hours) Vital Signs Temp Pulse Pulse Resp BP Pulse Ox 02/01/21 07:57 36.7 C 79 18 118/68 93 02/01/21 07:46 81 02/01/21 03:39 36.9 C 76 18 100/63 92 02/01/21 00:07 78 01/31/21 23:08 36.8 C 79 16 103/62 94 Resident Activity Tracking Resident Involvement: Resident Care Provided Care Provided: Adult Hospital Medicine
[2021-02-01 11:14] VITALS: BP 107/69; TEMP 98.8; O2SAT 92
[2021-02-01] MEDS ORDERED: STROKE PATIENT DISCHARGE STA (14:11)
--- NOTE | 2021-02-01 14:50 | Pharmacy Report ---
Pharmacist Stroke Counseling - Date of Service February 01, 2021 - Scope: Pharmacy has been consulted to provide medication discharge counseling for this patient admitted with transient ischemic attack as per the Pharmacist Discharge Counseling for Stroke Patients Protocol. - Medications on Discharge: Home Medications Medication Instructions Recorded Confirmed vit C-vit Q-sxkxia-[id number] ox-lutein 1 cap PO QAM 09/04/18 01/30/21 226 mg-200 unit-5 mg-0.8 mg capsule (PreserVision Lutein) aspirin 81 mg chewable tablet 81 mg PO QAM 01/21/19 01/30/21 rosuvastatin 20 mg tablet (Crestor) 20 mg PO HS tab 05/04/20 01/30/21 cetirizine 10 mg tablet 10 mg PO QAM 09/09/20 01/30/21 hydroxyzine HCl 25 mg tablet 25 mg PO BID PRN 09/09/20 01/30/21 insulin aspart U-100 100 unit/mL 20 unit SUBCUT TID ml 09/09/20 01/30/21 (3 mL) subcutaneous pen (Novolog Flexpen U-100 Insulin aspart) omeprazole 40 mg capsule,delayed 40 mg PO DAILY PRN cap 09/09/20 01/30/21 release levothyroxine 75 mcg capsule 75 mcg PO QAM 09/13/20 01/30/21 (Tirosint) oxybutynin chloride 5 mg 10 mg PO HS 09/13/20 01/30/21 tablet,extended release 24 hr anastrozole 1 mg tablet 1 mg PO DAILY 01/19/21 01/30/21 New Rx's Medication Instructions Recorded hydrocodone 5 mg-acetaminophen 325 1 - 2 tab PO .COMPLEX PRN #30 tab 12/02/20 mg tablet MDD 6 tabs lorazepam 0.5 mg tablet 0.5 mg PO TID PRN #30 tab 12/02/20 gabapentin 300 mg capsule 600 mg PO BID #360 cap 12/03/20 venlafaxine 150 mg 150 mg PO BID #180 cap 12/14/20 capsule,extended release 24 hr silver sulfadiazine 1 % topical 1 applic TOPICAL BID #85 g 01/03/21 cream (Silvadene) insulin detemir U-100 100 unit/mL 40 unit SUBCUT BID #30 ml 01/26/21 (3 mL) subcutaneous pen (Levemir FlexTouch U-100 Insulin) apixaban 2.5 mg tablet (Eliquis) 2.5 mg PO BID 30 Days #60 tab 02/01/21 - Action: The above medications, specifically ones for stroke treatment/prophylaxis, have been reviewed in detail with the patient and/or patient clearance representative(s) prior to discharge. This includes indication, common adverse reactions, drug interactions, and medication administration. Medication counseling has been employed using the teach-back method to ensure understanding. - Outcome: The patient and/or patient clearance representative(s) have demonstrated understanding of the medications. Additional comments: Spoke with Sharon tineo. Reviewed new medications to prevent stroke including apixaban and DC plavix. Discussed why they are being used and common side effects in great detail. Reviewed how to use the medications, what to do if doses are missed, common drug interactions, common side effects, what to watch out for while using the medications, and how to store the medications. Pt verbalized understanding and restated the rios points of each medication. Thank you for allowing pharmacy to be involved in the care of this patient. Please call [phone] with any additional questions
--- NOTE | 2021-02-01 16:45 | Cardiology Consultation ---
Date of Consultation February 01, 2021 Assessment & Plan (1) Brain TIA: The patient was placed on systemic anticoagulation given her recent events. There is no cardiac indication for systemic anticoagulation. The patient has not had documented episodes of atrial fibrillation. While her loop recorder may list events as atrial fibrillation, these events do not appear to be actual atrial fibrillation. They likely represent atrial ectopy. They are very brief in nature and they do not represent an indication for systemic anticoagulation. History of Present Illness Reason for Consultation: History of syncope and loop recorder implant Requesting Physician: Bev Attending Physician: Jani Domingo DO History of Present Illness The patient is an 80-year-old woman with a remote history of syncope and prior implant of a patient activated loop recorder. She has been admitted to the [facility] on multiple occasions with symptoms of cerebrovascular disease. There has been some concern that her episodes are related to occult atrial fibrillation. The patient states that her current admission was prompted by weakness and difficulty speaking. She also difficulty with cognition. The symptoms appear to have improved and she reports being back at baseline currently. She has not report new exertional symptoms. She has not report any sense of palpitations. No recurrent syncopal episodes. Allergies Allergy/AdvReac Type Severity Reaction Status Date / Time adhesive Allergy Intermediate BLISTERS Verified 01/30/21 17:45 amitriptyline AdvReac Intermediate HALLUCINATI Verified 01/30/21 17:45 ONS atorvastatin AdvReac Intermediate JOINT PAIN Verified 01/30/21 17:45 cephalexin AdvReac Intermediate N/V Verified 01/30/21 17:45 pioglitazone AdvReac Intermediate SEVERE Verified 01/30/21 17:45 FATIGUE tramadol AdvReac Intermediate N/V Verified 01/30/21 17:45 codeine AdvReac Mild NAUSEA AND Verified 01/30/21 17:45 VOMITING doxycycline AdvReac Mild GI SYMPTOMS Verified 01/30/21 17:45 hydroxychloroquine AdvReac Mild Diarrhea Verified 01/30/21 17:45 [From Plaquenil] liraglutide AdvReac Mild GI UPSET Verified 01/30/21 17:45 metformin AdvReac Mild NAUSEA AND Verified 01/30/21 17:45 VOMITING phenol AdvReac Mild GI UPSET Verified 01/30/21 17:45 propylene glycol AdvReac Mild GI UPSET Verified 01/30/21 17:45 saccharin AdvReac Mild diarrhea Verified 01/30/21 17:45 zoster vaccine live AdvReac Unknown Unknown Verified 01/30/21 17:45 [From Zostavax ()] Home Medications Medication Instructions Recorded Confirmed Type vit C-vit G-srwgbj-wwgw ox-lutein 1 cap PO QAM 09/04/18 01/30/21 History 226 mg-200 unit-5 mg-0.8 mg capsule (PreserVision Lutein) aspirin 81 mg chewable tablet 81 mg PO QAM 01/21/19 01/30/21 History rosuvastatin 20 mg tablet (Crestor) 20 mg PO HS tab 05/04/20 01/30/21 History cetirizine 10 mg tablet 10 mg PO QAM 09/09/20 01/30/21 History hydroxyzine HCl 25 mg tablet 25 mg PO BID PRN 09/09/20 01/30/21 History insulin aspart U-100 100 unit/mL 20 unit SUBCUT TID ml 09/09/20 01/30/21 History (3 mL) subcutaneous pen (Novolog Flexpen U-100 Insulin aspart) omeprazole 40 mg capsule,delayed 40 mg PO DAILY PRN cap 09/09/20 01/30/21 History release levothyroxine 75 mcg capsule 75 mcg PO QAM 09/13/20 01/30/21 History (Tirosint) oxybutynin chloride 5 mg 10 mg PO HS 09/13/20 01/30/21 History tablet,extended release 24 hr hydrocodone 5 mg-acetaminophen 325 1 - 2 tab PO .COMPLEX PRN #30 tab 12/02/20 01/30/21 Rx mg tablet MDD 6 tabs lorazepam 0.5 mg tablet 0.5 mg PO TID PRN #30 tab 12/02/20 01/30/21 Rx gabapentin 300 mg capsule 600 mg PO BID #360 cap 12/03/20 01/30/21 Rx venlafaxine 150 mg 150 mg PO BID #180 cap 12/14/20 01/30/21 Rx capsule,extended release 24 hr silver sulfadiazine 1 % topical 1 applic TOPICAL BID #85 g 01/03/21 01/30/21 Rx cream (Silvadene) anastrozole 1 mg tablet 1 mg PO DAILY 01/19/21 01/30/21 History insulin detemir U-100 100 unit/mL 40 unit SUBCUT BID #30 ml 01/26/21 01/30/21 Rx (3 mL) subcutaneous pen (Levemir FlexTouch U-100 Insulin) apixaban 2.5 mg tablet (Eliquis) 2.5 mg PO BID 30 Days #60 tab 02/01/21 Rx Patient History Medical History Allergic rhinitis Aneurysm, cerebral, nonruptured Repaired with stent> 2016 Per 12/05/2019 head CTA = postprocedural changes involving the distal left vertebral artery. 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 Anxiety Asthma well controlled per pt > no inhalers Asymptomatic hyperuricemia Atrial aneurysm Atrial fib/flutter, transient Follows [facility] > no cardioversions Loop recorder in place - [employer]- placed 09/05/18 Breast cancer DX in 2009> bilat mastectomy >no chemo Recently diagnosed with metastatic right breast carcinoma 08/13/20 Carotid artery dissection Carotid artery stenosis Follows with [facility]. S/p CEA years ago Per 12/05/2019 neck CTAatheromatous changes involving both ICAs without evidence of hemodynamically significant stenosis. Short segment dissection of proximal ICA. Central stenosis of spinal canal Chronic kidney disease, stage 3 follows PCP > Dr. De La Cruz Chronic obstructive pulmonary disease has more difficulty at night with breathing. ok during day On oxygen in the past but no longer using CLL (chronic lymphocytic leukemia) Coronary artery calcification Deep vein thrombosis several yrs ago> left leg > caused from control pills Depression Diabetes mellitus type 2, uncontrolled IDDM Diabetic nephropathy Diverticulosis Gait disturbance Gastroesophageal reflux disease Hyperlipidemia Hyperplastic colon polyp Hypertension Hypothyroidism Internal hemorrhoids Left hemiparesis From stroke in November 2019 Lumbar radiculopathy Lumbar spinal stenosis Lumbar stenosis with neurogenic claudication Nicotine dependence Nodule of chest wall right lateral Nonalcoholic steatohepatitis Obesity On home oxygen therapy no longer using at this time Osteoarthritis bilateral knees, legs, hands Osteopenia Polycythemia Polyuria Seborrheic keratosis Sensorineural hearing loss (SNHL) of both ears Short-term memory loss Sleep apnea Sleep related hypoxia Sleep apnea > does not use CPAP Stroke December 05, 2019 > [facility] > has short term memory loss as result > left side weakness TMJ syndrome Urinary frequency Urinary incontinence Vertigo Vitamin D deficiency Surgical History H/O varicose vein ligation and stripping left leg History of appendectomy History of brain surgery Cerebral angiogram and stent-assisted coil embolization of the It PICA aneurysm. 12/22/2015 > follows with [facility] History of breast lump/mass excision History of carotid endarterectomy over 6 yrs ago > [facility] History of cataract surgery Right: July 2012 Left: August 2012 History of colonoscopy History of hysterectomy Ovaries intact History of mastectomy bilateral September 2009 History of parathyroid surgery Excision of benign neoplasm History of shoulder surgery Right shoulder arthroscopic labral debridement, subacromial decompression, and acromioplasty excision distal clavicle, biceps tenotomy. 06/15/2014 History of total knee replacement left 01/11/2012 Hx of tonsillectomy Family History Grandmother No problems noted. Father , in his 50s of lung cancer Lung disease Lung cancer Mother , in her 70s of cancer Cancer Hypertension Unknown , Niece at 37 Colon cancer Son Anxiety Depression Kidney stones Alcohol abuse Grandmother (Maternal) Lung cancer Sister COPD (chronic obstructive pulmonary disease) Son MVA (motor vehicle accident) Son Rheumatic fever Daughter Medical history unknown Denies family history of Ovarian cancer Prostate cancer Myocardial infarction Breast cancer Bleeding disorder Social History Smoking Status: Former smoker Tobacco Type: Cigarettes Age Started Using Tobacco: 16; Years Smoked: 60; Cigarettes Per Day: 2; Second Hand Exposure: Yes; Hx Alcohol Use: No Hx Substance Use: No Preferred Language: Thai Communication Ability: Effective Visual Impairment: No Limitations Hearing Ability: Normal Agronomy Professor Required: No Beliefs That Will Affect Care: None marital status: Current Living Situation: Spouse Current Living Situation Comment: Home current occupational status: retired 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 Mood affect appear normal. She answered all questions appropriately. HEENT: Sclerae are anicteric. Pupils are equal and reactive to light and accommodation. Extraocular movements were intact. Mustache noted Neuro: Cranial nerves intact Lungs: Lungs are clear to auscultation bilaterally. There are no rales wheezes or rhonchi. She has normal respiratory effort without use of accessory muscles. There is normal pulmonary excursion. Cardiac: The rhythm was regular. S1 and S2 were normal. There are no murmurs on examination. The PMI was not markedly displaced on palpation. Abdomen: The abdomen was soft and nontender. Extremities: Patient has bilateral radial pulses that are equal in intensity. There is no evidence cyanosis or clubbing. Skin: There are no rashes noted on examination today. Results & Data ([facility]) Vital Signs (Past 12 Hours) Vital Signs Temp Pulse Pulse Resp BP Pulse Ox 02/01/21 15:15 37.1 C 79 18 107/69 92 02/01/21 11:12 37.1 C 79 18 107/69 92 02/01/21 07:57 36.7 C 79 18 118/68 93 02/01/21 07:46 81 Laboratory Results Abnormal Lab Results 01/31/21 02/01/21 02/01/21 19:53 06:29 06:29 WBC 9.03 RBC 5.09 Hgb 15.7 Hct 47.7 H MCV 93.7 MCH 30.8 MCHC 32.9 RDW Std Deviation 49.5 H RDW Coeff of [place] 14.6 H Plt Count 295 MPV 10.7 H Immature Gran % (Auto) 0.4 Neut % (Auto) 68.4 Lymph % (Auto) 18.7 [place] % (Auto) 9.0 Eos % (Auto) 3.3 Baso % (Auto) 0.2 Neut # (Auto) 6.17 Lymph # (Auto) 1.69 [place] # (Auto) 0.81 H Eos # (Auto) 0.30 Baso # (Auto) 0.02 Immature Gran # (Auto) 0.04 H Sodium 139 Potassium 4.5 D Chloride 108 H Carbon Dioxide 29 Anion Gap 2.0 L BUN 20 H Creatinine 1.60 H Est Cr Clr Drug Dosing 26.6 Est GFR ( Amer) 34.9 Est GFR (Non-Af Amer) 30.1 BUN/Creatinine Ratio 12.7 Glucose 183 H POC Glucose 176 H Calcium 9.1 02/01/21 02/01/21 02/01/21 07:33 11:13 11:49 WBC RBC Hgb Hct MCV MCH MCHC RDW Std Deviation RDW Coeff of [place] Plt Count MPV Immature Gran % (Auto) Neut % (Auto) Lymph % (Auto) [place] % (Auto) Eos % (Auto) Baso % (Auto) Neut # (Auto) Lymph # (Auto) [place] # (Auto) Eos # (Auto) Baso # (Auto) Immature Gran # (Auto) Sodium Potassium Chloride Carbon Dioxide Anion Gap BUN Creatinine Est Cr Clr Drug Dosing Est GFR ( Amer) Est GFR (Non-Af Amer) BUN/Creatinine Ratio Glucose POC Glucose 183 H 225 H 191 H Calcium Diagnostic Findings I interrogated her loop recorder. There were very brief episodes of SVT noted. These lasted up to 20 seconds. No atrial fibrillation PG Care Time/CCT Total # of Minutes Spent Total Time Spent with Patient: Total time spent is greater than 50% in coordina tion of care (as documented) at patient's floor/unit and/or counseling patient: Coding Level of Care Code 27151 Initial Inpt Care Lvl 2 Diagnoses Brain TIA G45.9
--- NOTE | 2021-02-01 18:16 | Discharge Summary ---
Date of Service February 01, 2021 Admission Exam Per Admitting Provider Constitutional: well developed, well nourished, cooperative and comfortable; no acute distress Eyes: PERRL, conjunctivae normal, anicteric sclerae + eyelid abnormality (L brow slightly lower than R ) Principal Diagnosis TIA Discharge Exam Constitutional WD/WN, vitals as above Neck + thick neck Respiratory normal respiratory effort, lungs clear to auscultation Cardiovascular RRR, no murmur, no edema Discharge Data Allergies Allergy/AdvReac Type Severity Reaction Status Date / Time adhesive Allergy Intermediate BLISTERS Verified 01/30/21 17:45 amitriptyline AdvReac Intermediate HALLUCINATI Verified 01/30/21 17:45 ONS atorvastatin AdvReac Intermediate JOINT PAIN Verified 01/30/21 17:45 cephalexin AdvReac Intermediate N/V Verified 01/30/21 17:45 pioglitazone AdvReac Intermediate SEVERE Verified 01/30/21 17:45 FATIGUE tramadol AdvReac Intermediate N/V Verified 01/30/21 17:45 codeine AdvReac Mild NAUSEA AND Verified 01/30/21 17:45 VOMITING doxycycline AdvReac Mild GI SYMPTOMS Verified 01/30/21 17:45 hydroxychloroquine AdvReac Mild Diarrhea Verified 01/30/21 17:45 [From Plaquenil] liraglutide AdvReac Mild GI UPSET Verified 01/30/21 17:45 metformin AdvReac Mild NAUSEA AND Verified 01/30/21 17:45 VOMITING phenol AdvReac Mild GI UPSET Verified 01/30/21 17:45 propylene glycol AdvReac Mild GI UPSET Verified 01/30/21 17:45 saccharin AdvReac Mild diarrhea Verified 01/30/21 17:45 zoster vaccine live AdvReac Unknown Unknown Verified 01/30/21 17:45 [From Zostavax (PF)] Consultations 01/30/21 19:23 ED Decision to Admit Stat 01/30/21 23:55 Consult Neurology Routine 01/31/21 13:26 Consult Cardiology Routine Ordered Studies 01/30/21 17:45 CT head/brain wo con Stat 01/30/21 18:00 CT angio head w con Stat CT angio neck with con Stat 01/30/21 20:12 MR brain wo/w con Stat Hospital Course (1) Brain TIA: Sharon Ochoa is an 80 year old woman with a PMHx of HLD, DM2, TIA, CVA, CLL, Breast Cancer who presented to the ED by EMS for concerns of worsening confusion and L sided facial droop. She had been recently admitted from 01/19- 01/26/21 for similar symptoms and was diagnosed then with a suspected TIA. Non- contrast CT head, contrast CT angio head/neck, and a brain MRI were performed that revealed no acute infarcts. She was then admitted for a complete TIA workup . In the hospital, neurology was consulted for additional guidance with respect to her workup. 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 TTE showed normal EF and moderate LVOT obstruction. Her home Plavix was stopped and switched to Eliquis at 5 mg bid, as she was previou sly on Plavix when she had her initial TIA presentation on 01/19. She was evaluated by PT/OT and deemed able to be discharged home. She had no new incidences of confusion or focal neurological deficits for the duration of her hospital stay. After reviewing her medications, she was discharged on low dose Eliquis 2.5 mg and urged to follow up with Dr. Mccullough outpatient for further anticoagulant titr ation. Total Time Total Time Spent Total Time Spent (In Minutes): 30 Discharge Plan Discharge Items Patient Disposition: Home - Self-Care Reason For Visit: L FACIAL DROOP, CONFUSION, TIA Discharge Diagnosis: TIA Activity: Per Instructions section Non-emergency contact: Primary Care Provider Call non-emergency contact if: your symptoms worsen Follow-up/Referrals: José Miguel De La Cruz MD [Primary Care Provider] - 02/21/21 2:00 pm José Miguel Mccullough MD [Physician] - 02/15/21 1:45 pm (If you have any questions or need to change this appointment, please call [phone].) Diet: Regular Addtl Attending Provider Instructions: Dear Sharon, You were brought to the hospital for confusion and a left facial droop. You were evaluated at the hospital and admitted for a possible stroke, or a TIA (transient intrinsic attack). We did some imaging to see if you had had a blood clot in your brain. The imaging did not show any evidence of a blood clot. We consulted with the neurology team to evaluate you as well. They believe this was a transient ischemic stroke. We also consulted with the cardiology team to provide additional guidance on your medication. Dr. Mccullough, with whom you follow in clinic, recommends that you be put on Eliquis and not Plavix. We stopped your Plavix, and started you on Eliquis, a stronger anticoagulant, in the hospital. We did an echocardiogram, an ultrasound of your heart, in an attempt to find the source of your clots. The echocardiogram showed a normal ejection fraction, as well as a moderate outflow obstruction of your left ventricle. We had our physical therapy team work with you to assess your strength and mobility, since you were in bed for some time. From their perspective, you are strong enough to be discharged home. We feel you are medically cleared to be discharged home as well. To reduce the risk of this happening in the future, we recommend you take the Eliquis as prescribed at home. You should stop taking the Plavix. You should also follow with with Dr. Mccullough in the office, as well as with your primary care provider. If you experience the same symptoms as before, do not hesitate to return to the Emergency Department. You should also come back if you experience any sudden one-sided weakness or numbness in your face, arms or legs, or if you experience any confusion, crushing headache, sudden difficulty speaking or understanding speech, or sudden trouble seeing. It has been our pleasure to care for you at [facility]. Please feel free to reach out if you have any questions about your stay. Pending Studies at Discharge: No Stand-Alone Forms: Medications to Prevent Stroke, My [facility], Smoking Cessation Medications and DC Order Prescriptions: New Eliquis 2.5 mg tablet 2.5 mg PO BID 30 Days Qty: 60 RF: 0 Continued lorazepam 0.5 mg tablet 0.5 mg PO TID PRN (Reason: Anxiety or muscle spasm) Qty: 30 RF: 0 hydrocodone-acetaminophen 5-325 mg tablet 1 - 2 tab PO .COMPLEX MDD 6 tabs PRN (Reason: pain) Qty: 30 RF: 0 gabapentin 300 mg capsule 600 mg PO BID Qty: 360 RF: 1 silver sulfadiazine [Silvadene] 1 % cream 1 applic topical BID Qty: 85 RF: 3 rosuvastatin [Crestor] 20 mg tablet 20 mg PO HS RF: 0 cetirizine 10 mg tablet 10 mg PO QAM RF: 0 hydroxyzine HCl 25 mg tablet 25 mg PO BID PRN (Reason: Itching) RF: 0 insulin aspart U-100 [Novolog Flexpen U-100 Insulin] 100 unit/mL (3 mL) insulin pen 20 unit subcut TID RF: 0 omeprazole 40 mg capsule,delayed release(DR/EC) 40 mg PO DAILY PRN (Reason: Acid Reflux) RF: 0 venlafaxine 150 mg capsule,extended release 24hr 150 mg PO BID Qty: 180 RF: 3 aspirin 81 mg tablet,chewable 81 mg PO QAM RF: 0 PreserVision Lutein 226 mg-200 unit -5 mg-0.8 mg Capsule 1 cap PO QAM RF: 0 anastrozole 1 mg tablet 1 mg PO DAILY RF: 0 Levemir FlexTouch U-100 Insuln 100 unit/mL (3 mL) insulin pen 40 unit subcut BID Qty: 30 RF: 5 oxybutynin chloride 5 mg tablet extended release 24hr 10 mg PO HS RF: 0 levothyroxine [Tirosint] 75 mcg capsule 75 mcg PO QAM RF: 0 Discontinued clopidogrel 75 mg tablet 75 mg PO QAM Qty: 90 RF: 1 Discharge Orders: Discharge Order (Routine); Ordered 02/01/21 Ordered By: Claire Hale/Other Patient Handouts: What Is a TIA?, Stroke: Taking Medicines, Stroke Prevention Activity Admission Data Admit Date/Time: 01/30/21 20:52 Attending Provider: Jani Domingo Admit Provider: Cm Wynne Primary Care Provider: José Miguel De La Cruz Other Providers: Angel Davalos ; Marciano Alexander ; Miguel Walker Other Interventions: Discharge Summary Assessment (RN) Last Done: 02/01/21 15:15 Supervising Physician Co-Signing Physician Notes I also saw the patient with the resident physician and confirmed rios portions of the history and exam. Upon exam today, the patient is out of bed sitting in the bedside chair. She is much more alert, awake, conversational today compared to yesterday. Collateral information was also obtained from family members and it seems as if the patient was on Plavix and aspirin prior to her most recent event. It sounds as if she was, never had resumed it after her most recent admission; nonetheless, it appears as if she had a neurologic event despite dual antiplatelet therapy. Thus, the addition of Eliquis seems more reasonable. Is noted that her loop recorder, to this point, has showed only atrial tachycardia and no evidence of atrial fibrillation. Exam 107/69, 79, 18, 37.1, 92% on room air Heart regular Lungs clear with nonlabored respirations Data CBC shows a white count of 9.03 and a hemoglobin of 15.7. Platelet count is 295 Sodium 139, potassium 4.5, BUN 20, creatinine 1.6 Assessment and Plan I agree with the impression and plan as noted the resident documentation TIA, Recurrent Patient to gather history from the patient and her family, along with previous neurology consultation, it does look as if she had a event on dual antiplatelet therapy. Thus, addition of Eliquis seems reasonable, although as noted above, no evidence of atrial fibrillation on her loop recorder. Given her age and current creatinine, recommend Eliquis 2.5 mg p.o. twice daily. If her baseline renal function stabilizes less than 1.5, could consider increasing to 5 mg twice daily, at this time would err on the side of the lower dose given her other comorbidities and concurrent aspirin. Resident Activity Tracking Resident Involvement: Resident Care Provided Care Provided: Adult Hospital Medicine
--- NOTE | 2021-02-01 18:34 | Electrocardiogram Report ---
Test Reason : Blood Pressure : / mmHG Vent. Rate : 083 BPM Atrial Rate : 083 BPM P-R Int : 194 ms QRS Dur : 080 ms QT Int : 398 ms P-R-T Axes : 014 000 079 degrees QTc Int : 467 ms Normal sinus rhythm Normal ECG When compared with ECG of 31-JAN-2021 06:03, No significant change was found Confirmed by Sumit Mccullough ([id number]) on 02/01/2021 6:33:59 PM Referred By: REFERRED SELF Confirmed By:Lonnie Mccullough
--- NOTE | 2021-02-05 10:37 | Billing Data ---
Date of Service February 05, 2021 Coding Level of Care Code INT OBSERVATION CARE 70M LVL 3
== END 2021-02-01 15:34 | disposition home or self-care (01) ==
LOC: 2N 16:51 → ED 16:51 → SUATTDRO 20:52 → 2N 23:15

== ENCOUNTER 2021-07-22 13:57 | Inpatient (IN) ==
[2021-07-22] MEDS ORDERED: ONDANSETRON INJ 2 MG/ML 2 ML VIAL IV STA (15:11)
[2021-07-22] MEDS ORDERED: SODIUM CHLORIDE 0.9% 500 ML IV SCH (15:15)
--- NOTE | 2021-07-22 15:16 | Emergency Department Note ---
Impression & Plan Hypoxia ADMIT ED Provider Note HPI: The patient is an 80-year-old female with extensive past medical history including coronary artery disease, type 2 diabetes, presents the emergency department with a chief complaint of diminished appetite, patient was also noted to be hypoxic in the field at 84% which did respond well to nasal cannula supplemental oxygen. Patient arrives to the emergency department able to provide some limited history, patient has a somewhat delayed speech pattern, unclear baseline, she does have a history of Stroke listed in her chart.Patient is otherwise in no acute distress on my initial evaluation, she is able to answer simple questions appropriately. ROS: - GI: Diminished appetite, - Gen: reported generalized weakness - Pulm: Hypoxia *10 point review systems was conducted and is otherwise negative unless stated above *Outpatient medications and allergy history reviewed PE: General: Alert, NAD HEENT: Normocephalic, atraumatic Eyes: Extraocular eye movement is intact, no scleral erythema Pulmonary: Slightly diminished bilaterally without crackles or wheezing Cardio: Regular rate and rhythm GI: Abdomen is soft, nontender : No suprapubic tenderness MSK: No evidence of trauma or malformation of the extremities, no edema Skin: No evidence of rash Neuro: Alert, no focal deficits 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 On arrival here to the ED she is in no acute distress, she is saturating well now on 2 L nasal cannula oxygen. Lab work does show leukocytosis with a slight left shift, patient was given gentle IV fluid bolus, lactic acid is slightly elevated at 2.4, blood cultures were ordered, patient was started on antibiotics for suspected pneumonia as CT imaging of the abdomen pelvis does not show any evidence of small bowel obstruction but does show some changes consistent with pneumonia.I suspect this is the source of the patient's hypoxia, COVID-19 testing done here in the ED is negative. CT imaging of the head was obtained that does not show any acute changes. Patient was started on IV antibiotics, on reassessment oxygen was weaned off and the patient did have a desaturation to 86%, therefore nasal cannula was placed back on and the patient will be admitted for hypoxia. Case was discussed with the on-call hospitalist for [facility], Dr. Myers, and the patient was accepted to a monitored bed in stable condition for further care. * CRITICAL CARE TIME: ( 33 ) minutes - Stabilization of hypoxia with oxygen saturations less than 90% on room air requiring nasal cannula oxygen for stabilization, time spent at the bedside, interpretation of diagnostic studies, arrangement of admission Diagnosis: 1. Hypoxia 2. Community-acquired pneumonia 3. Diminished appetite 4. Generalized weakness Disposition: Admission Noe Rivas DO Emergency Medicine Past Med/Surg History Medical History Allergic rhinitis Aneurysm, cerebral, nonruptured Anxiety Asthma Asymptomatic hyperuricemia Atrial aneurysm Atrial fib/flutter, transient Breast cancer Carotid artery stenosis Central stenosis of spinal canal Chronic kidney disease, stage 3 Chronic obstructive pulmonary disease CLL (chronic lymphocytic leukemia) Coronary artery calcification Deep vein thrombosis Depression Diabetes mellitus type 2, uncontrolled Diabetic nephropathy Gastroesophageal reflux disease Hyperlipidemia Hypertension Hypothyroidism Left hemiparesis Lumbar radiculopathy Lumbar spinal stenosis Lumbar stenosis with neurogenic claudication Nonalcoholic steatohepatitis On home oxygen therapy Osteoarthritis Osteopenia Polycythemia Recurrent cancer of right breast (08/13/20) Sensorineural hearing loss (SNHL) of both ears Short-term memory loss Sleep related hypoxia Stroke TIA (transient ischemic attack) TMJ syndrome Urinary frequency Vertebral artery stenosis Surgical History H/O varicose vein ligation and stripping History of appendectomy History of brain surgery History of breast lump/mass excision History of carotid endarterectomy History of cataract surgery History of colonoscopy History of hysterectomy History of mastectomy History of parathyroid surgery History of shoulder surgery History of total knee replacement Hx of excision of mass Hx of tonsillectomy Family History Grandmother No problems noted. Father Lung disease Lung cancer Mother Cancer Hypertension Unknown Colon cancer Son Anxiety Depression Kidney stones Alcohol abuse Grandmother (Maternal) Lung cancer Sister COPD (chronic obstructive pulmonary disease) Son MVA (motor vehicle accident) Son Rheumatic fever Daughter Medical history unknown Denies family history of Ovarian cancer Prostate cancer Myocardial infarction Breast cancer Bleeding disorder Social History Smoking Status: Current every day smoker Tobacco Type: Cigarettes Age Started Using Tobacco: 16; Years Smoked: 60; Cigarettes Per Day: 1-2 cigs per day; Second Hand Exposure: Yes ( SMOKES); Hx Alcohol Use: Yes Alcohol type: wine Hx Substance Use: No Preferred Language: Jamaican Communication Ability: Effective Visual Impairment: No Limitations Hearing Ability: Normal Space Systems Operations Craftsman Required: No Beliefs That Will Affect Care: None marital status: Current Living Situation: Spouse current occupational status: retired 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 How many Children do You have: 4 How many Children do You have Comment: Pregnancies:6 Children:4 :1 Feels Safe at Home: Yes Childhood Exposure to Second-Hand Smoke: Yes caffeine: Yes during the past year weight has: remained stable Dental Care, Regularly: No Physical Activity Frequency: Does not Exercise Seatbelt Use: never Assistive Devices: Denture - Upper, Denture - Lower, Glasses and Walker Allergies Allergies Allergy/AdvReac Type Severity Reaction Status Date / Time adhesive Allergy Intermediate BLISTERS Verified 07/22/21 15:53 amitriptyline AdvReac Intermediate HALLUCINATI Verified 07/22/21 15:53 ONS atorvastatin AdvReac Intermediate JOINT PAIN Verified 07/22/21 15:53 cephalexin AdvReac Intermediate N/V Verified 07/22/21 15:53 pioglitazone AdvReac Intermediate SEVERE Verified 07/22/21 15:53 FATIGUE tramadol AdvReac Intermediate N/V Verified 07/22/21 15:53 codeine AdvReac Mild NAUSEA AND Verified 07/22/21 15:53 VOMITING doxycycline AdvReac Mild GI SYMPTOMS Verified 07/22/21 15:53 hydroxychloroquine AdvReac Mild Diarrhea Verified 07/22/21 15:53 [From Plaquenil] liraglutide AdvReac Mild GI UPSET Verified 07/22/21 15:53 metformin AdvReac Mild NAUSEA AND Verified 07/22/21 15:53 VOMITING phenol AdvReac Mild GI UPSET Verified 07/22/21 15:53 propylene glycol AdvReac Mild GI UPSET Verified 07/22/21 15:53 saccharin AdvReac Mild diarrhea Verified 07/22/21 15:53 zoster vaccine live AdvReac Unknown Unknown Verified 07/22/21 15:53 [From Zostavax (PF)] Home Meds Home Medications Medication Instructions Recorded Confirmed vit C-vit F-hgnepj-tppy ox-lutein 1 cap PO QAM 09/04/18 07/22/21 226 mg-200 unit-5 mg-0.8 mg capsule (PreserVision Lutein) aspirin 81 mg chewable tablet 81 mg PO QAM 01/21/19 07/22/21 hydroxyzine HCl 25 mg tablet 25 mg PO BID PRN 09/09/20 07/22/21 omeprazole 40 mg capsule,delayed 40 mg PO QAM cap 09/09/20 07/22/21 release levothyroxine 75 mcg capsule 75 mcg PO QAM 09/13/20 07/22/21 (Tirosint) anastrozole 1 mg tablet 1 mg PO QAM 01/19/21 07/22/21 apixaban 5 mg tablet (Eliquis) 5 mg PO BID 05/05/21 07/22/21 donepezil 5 mg tablet 5 mg PO HS 05/19/21 07/22/21 insulin aspart U-100 100 unit/mL 1 unit SUBCUT DIRECTED 05/19/21 07/22/21 (3 mL) subcutaneous pen (Novolog Flexpen U-100 Insulin aspart) insulin detemir U-100 100 unit/mL 40 unit SUBCUT BID 06/30/21 07/22/21 (3 mL) subcutaneous pen (Levemir FlexTouch U-100 Insulin) clopidogrel 75 mg tablet 75 mg PO DAILY 07/22/21 07/22/21 Previous Rx's Medication Instructions Recorded lorazepam 0.5 mg tablet 0.5 mg PO TID PRN #30 tab 12/02/20 gabapentin 300 mg capsule 600 mg PO BID #360 cap 12/03/20 rosuvastatin 20 mg tablet (Crestor) 20 mg PO HS #90 tab 02/07/21 cetirizine 10 mg tablet 10 mg PO QAM #90 tab 05/23/21 venlafaxine 150 mg 150 mg PO BID #180 cap 05/23/21 capsule,extended release 24 hr blood sugar diagnostic (OneTouch #300 ea 05/24/21 Ultra Test) oxybutynin chloride 10 mg 10 mg PO DAILY #90 tab 05/24/21 tablet,extended release 24 hr diaper,brief,adult,disposable #60 ea 07/11/21 incontinence pad, liner, disp #40 ea 07/11/21 (Underpads Regular) Results & Data (ED) Vital Signs Vital Signs - 24 hr 07/22/21 14:32 07/22/21 15:26 07/22/21 18:17 Temperature 36.7 C Temperature Source Oral Pulse Rate 88 91 H Pulse Rate [Apical] 88 92 H Pulse Rhythm Regular Regular Pulse Rhythm [Apical] Regular Regular Pulse Strength Normal Pulse Strength [Apical] Normal Normal Respiratory Rate 18 18 18 Respiratory Effort / Characteristics Non-Labored Non-Labored Respiratory Depth Normal Normal Respiratory Pattern Regular Regular Blood Pressure 119/88 Blood Pressure [Left Arm] 119/88 138/64 Blood Pressure Mean 98 Blood Pressure Mean [Left Arm] 98 88 Blood Pressure Position Lying Blood Pressure Position [Left Arm] Lying Lying Pulse Oximetry 98 98 97 Oxygen Delivery Method Nasal Cannula Nasal Cannula Nasal Cannula Oxygen Flow Rate 2 2 2 Sepsis Recent Fever Within 48 Hours No Sepsis New/Unexplained Change in Mental Status No Sepsis Action Taken by Nursing No Action Required Oxygen Flow Rate - Titration 2 Pulse Oximetry Post Tiitration 98 07/22/21 19:22 Temperature Temperature Source Pulse Rate Pulse Rate [Apical] Pulse Rhythm Pulse Rhythm [Apical] Pulse Strength Pulse Strength [Apical] Respiratory Rate Respiratory Effort / Characteristics Respiratory Depth Respiratory Pattern Blood Pressure Blood Pressure [Left Arm] Blood Pressure Mean Blood Pressure Mean [Left Arm] Blood Pressure Position Blood Pressure Position [Left Arm] Pulse Oximetry 86 L Oxygen Delivery Method Room Air Oxygen Flow Rate 0 Sepsis Recent Fever Within 48 Hours Sepsis New/Unexplained Change in Mental Status Sepsis Action Taken by Nursing Oxygen Flow Rate - Titration 2 Pulse Oximetry Post Tiitration 97 Laboratory Data Result diagrams: 07/22/21 14:29 07/22/21 15:56 Lab Results 07/22/21 07/22/21 07/22/21 Range/Units 14:29 14:29 15:31 WBC 12.51 H (4.8-10.8) K/uL RBC 5.02 (4.2-5.4) M/uL Hgb 14.4 (12.0-16.0) g/dL Hct 45.7 (37-47) % MCV 91.0 (80-100) fL MCH 28.7 (25-34) pg MCHC 31.5 L (32-36) g/dL RDW Std Deviation 49.1 H (36.4-46.3) fL RDW Coeff of [place] 14.9 H (11.5-14.5) % Plt Count 483 H (130-400) K/uL MPV 11.9 H (7.4-10.4) fL Immature Gran % (Auto) 0.2 % Neut % (Auto) 70.8 % Lymph % (Auto) 18.5 % [place] % (Auto) 7.3 % Eos % (Auto) 3.0 % Baso % (Auto) 0.2 % Neut # (Auto) 8.85 H (1.4-6.5) K/uL Lymph # (Auto) 2.32 (1.2-3.4) K/uL [place] # (Auto) 0.91 H (0.11-0.59) K/uL Eos # (Auto) 0.37 (0-0.5) K/uL Baso # (Auto) 0.03 (0-0.2) K/uL Immature Gran # (Auto) 0.03 H (0.00-0.02) K/uL PT 10.9 (9.0-12.0) Seconds INR 1.1 (0.9-1.1) VBG pH (7.36-7.41) VBG pCO2 (38-50) mmHg VBG pO2 mmHg VBG HCO3 mmol/L VBG O2 Saturation % VBG Base Excess mEq/L Barometric Pressure mm/Hg Sodium 142 (136-145) mmol/L Potassium (3.5-5.1) mmol/L Chloride 103 (98-107) mmol/L Carbon Dioxide 27 (21-32) mmol/L Anion Gap 12 H (3-11) BUN 19 (6-23) mg/dl Creatinine 1.13 (0.6-1.2) mg/dl Est Cr Clr Drug Dosing 37.6 ml/min Est GFR ( Amer) 53.2 ml/min Est GFR (Non-Af Amer) 45.9 ml/min BUN/Creatinine Ratio 16.8 (10-20) Glucose 139 H (70-99(Fasting)) mg/dl Lactate (0.4-2.0) mmol/L Calcium 10.1 (8.5-10.1) mg/dl Total Bilirubin 0.5 (0.2-1.0) mg/dl AST (13-39) U/L ALT 15 (7-52) U/L Alkaline Phosphatase 73 (34-104) U/L Troponin I < 0.03 (0-0.04) ng/ml B-Natriuretic Peptide (0-100) pg/ml Total Protein 7.8 (6.0-8.3) gm/dl Albumin 3.9 (3.4-5.0) gm/dl Globulin 3.9 (2.5-4.0) gm/dl Albumin/Globulin Ratio 1.0 (0.9-2) TSH (0.300-4.500) uIu/ml Free T4 (0.61-1.60) ng/dl Urine Color Urine Appearance (Clear) Urine pH (4.5-7.5) Ur Specific [place] (1.000-1.030) Urine Protein (Negative) Urine Glucose (UA) (Negative) Urine Ketones (Negative) Urine Blood (Negative) Urine Nitrite (Negative) Urine Bilirubin (Negative) Urine Urobilinogen (Negative) Ur Leukocyte Esterase (Negative) Urine WBC (Auto) (0-5) /hpf Urine RBC (Auto) (0-4) /hpf U Hyaline Cast (Auto) (0-5) /lpf U Epithel Cells (Auto) (0-5) /lpf Urine Bacteria (Auto) (Negative) SARS-CoV-2 (PCR) (Negative) Influenza Type A (PCR) (Neg) Influenza Type B (PCR) (Neg) RSV (RT-PCR) (Neg) 07/22/21 07/22/21 07/22/21 Range/Units 15:31 15:54 15:54 WBC (4.8-10.8) K/uL RBC (4.2-5.4) M/uL Hgb (12.0-16.0) g/dL Hct (37-47) % MCV (80-100) fL MCH (25-34) pg MCHC (32-36) g/dL RDW Std Deviation (36.4-46.3) fL RDW Coeff of [place] (11.5-14.5) % Plt Count (130-400) K/uL MPV (7.4-10.4) fL Immature Gran % (Auto) % Neut % (Auto) % Lymph % (Auto) % [place] % (Auto) % Eos % (Auto) % Baso % (Auto) % Neut # (Auto) (1.4-6.5) K/uL Lymph # (Auto) (1.2-3.4) K/uL [place] # (Auto) (0.11-0.59) K/uL Eos # (Auto) (0-0.5) K/uL Baso # (Auto) (0-0.2) K/uL Immature Gran # (Auto) (0.00-0.02) K/uL PT (9.0-12.0) Seconds INR (0.9-1.1) VBG pH (7.36-7.41) VBG pCO2 (38-50) mmHg VBG pO2 mmHg VBG HCO3 mmol/L VBG O2 Saturation % VBG Base Excess mEq/L Barometric Pressure mm/Hg Sodium (136-145) mmol/L Potassium (3.5-5.1) mmol/L Chloride (98-107) mmol/L Carbon Dioxide (21-32) mmol/L Anion Gap (3-11) BUN (6-23) mg/dl Creatinine (0.6-1.2) mg/dl Est Cr Clr Drug Dosing ml/min Est GFR ( Amer) ml/min Est GFR (Non-Af Amer) ml/min BUN/Creatinine Ratio (10-20) Glucose (70-99(Fasting)) mg/dl Lactate 2.4 H* (0.4-2.0) mmol/L Calcium (8.5-10.1) mg/dl Total Bilirubin (0.2-1.0) mg/dl AST (13-39) U/L ALT (7-52) U/L Alkaline Phosphatase (34-104) U/L Troponin I (0-0.04) ng/ml B-Natriuretic Peptide 43 (0-100) pg/ml Total Protein (6.0-8.3) gm/dl Albumin (3.4-5.0) gm/dl Globulin (2.5-4.0) gm/dl Albumin/Globulin Ratio (0.9-2) TSH 4.695 H (0.300-4.500) uIu/ml Free T4 0.77 (0.61-1.60) ng/dl Urine Color Urine Appearance (Clear) Urine pH (4.5-7.5) Ur Specific [place] (1.000-1.030) Urine Protein (Negative) Urine Glucose (UA) (Negative) Urine Ketones (Negative) Urine Blood (Negative) Urine Nitrite (Negative) Urine Bilirubin (Negative) Urine Urobilinogen (Negative) Ur Leukocyte Esterase (Negative) Urine WBC (Auto) (0-5) /hpf Urine RBC (Auto) (0-4) /hpf U Hyaline Cast (Auto) (0-5) /lpf U Epithel Cells (Auto) (0-5) /lpf Urine Bacteria (Auto) (Negative) SARS-CoV-2 (PCR) (Negative) Influenza Type A (PCR) (Neg) Influenza Type B (PCR) (Neg) RSV (RT-PCR) (Neg) 07/22/21 07/22/21 07/22/21 Range/Units 15:54 15:56 17:50 WBC (4.8-10.8) K/uL RBC (4.2-5.4) M/uL Hgb (12.0-16.0) g/dL Hct (37-47) % MCV (80-100) fL MCH (25-34) pg MCHC (32-36) g/dL RDW Std Deviation (36.4-46.3) fL RDW Coeff of [place] (11.5-14.5) % Plt Count (130-400) K/uL MPV (7.4-10.4) fL Immature Gran % (Auto) % Neut % (Auto) % Lymph % (Auto) % [place] % (Auto) % Eos % (Auto) % Baso % (Auto) % Neut # (Auto) (1.4-6.5) K/uL Lymph # (Auto) (1.2-3.4) K/uL [place] # (Auto) (0.11-0.59) K/uL Eos # (Auto) (0-0.5) K/uL Baso # (Auto) (0-0.2) K/uL Immature Gran # (Auto) (0.00-0.02) K/uL PT (9.0-12.0) Seconds INR (0.9-1.1) VBG pH 7.36 (7.36-7.41) VBG pCO2 55 H (38-50) mmHg VBG pO2 25 mmHg VBG HCO3 30 mmol/L VBG O2 Saturation < 60.0 % VBG Base Excess 3.6 mEq/L Barometric Pressure 736.7 mm/Hg Sodium (136-145) mmol/L Potassium 4.2 (3.5-5.1) mmol/L Chloride (98-107) mmol/L Carbon Dioxide (21-32) mmol/L Anion Gap (3-11) BUN (6-23) mg/dl Creatinine (0.6-1.2) mg/dl Est Cr Clr Drug Dosing ml/min Est GFR ( Amer) ml/min Est GFR (Non-Af Amer) ml/min BUN/Creatinine Ratio (10-20) Glucose (70-99(Fasting)) mg/dl Lactate 1.5 (0.4-2.0) mmol/L Calcium (8.5-10.1) mg/dl Total Bilirubin (0.2-1.0) mg/dl AST 21 (13-39) U/L ALT (7-52) U/L Alkaline Phosphatase (34-104) U/L Troponin I (0-0.04) ng/ml B-Natriuretic Peptide (0-100) pg/ml Total Protein (6.0-8.3) gm/dl Albumin (3.4-5.0) gm/dl Globulin (2.5-4.0) gm/dl Albumin/Globulin Ratio (0.9-2) TSH (0.300-4.500) uIu/ml Free T4 (0.61-1.60) ng/dl Urine Color Urine Appearance (Clear) Urine pH (4.5-7.5) Ur Specific [place] (1.000-1.030) Urine Protein (Negative) Urine Glucose (UA) (Negative) Urine Ketones (Negative) Urine Blood (Negative) Urine Nitrite (Negative) Urine Bilirubin (Negative) Urine Urobilinogen (Negative) Ur Leukocyte Esterase (Negative) Urine WBC (Auto) (0-5) /hpf Urine RBC (Auto) (0-4) /hpf U Hyaline Cast (Auto) (0-5) /lpf U Epithel Cells (Auto) (0-5) /lpf Urine Bacteria (Auto) (Negative) SARS-CoV-2 (PCR) (Negative) Influenza Type A (PCR) (Neg) Influenza Type B (PCR) (Neg) RSV (RT-PCR) (Neg) 07/22/21 07/22/21 Range/Units 18:34 18:34 WBC (4.8-10.8) K/uL RBC (4.2-5.4) M/uL Hgb (12.0-16.0) g/dL Hct (37-47) % MCV (80-100) fL MCH (25-34) pg MCHC (32-36) g/dL RDW Std Deviation (36.4-46.3) fL RDW Coeff of [place] (11.5-14.5) % Plt Count (130-400) K/uL MPV (7.4-10.4) fL Immature Gran % (Auto) % Neut % (Auto) % Lymph % (Auto) % [place] % (Auto) % Eos % (Auto) % Baso % (Auto) % Neut # (Auto) (1.4-6.5) K/uL Lymph # (Auto) (1.2-3.4) K/uL [place] # (Auto) (0.11-0.59) K/uL Eos # (Auto) (0-0.5) K/uL Baso # (Auto) (0-0.2) K/uL Immature Gran # (Auto) (0.00-0.02) K/uL PT (9.0-12.0) Seconds INR (0.9-1.1) VBG pH (7.36-7.41) VBG pCO2 (38-50) mmHg VBG pO2 mmHg VBG HCO3 mmol/L VBG O2 Saturation % VBG Base Excess mEq/L Barometric Pressure mm/Hg Sodium (136-145) mmol/L Potassium (3.5-5.1) mmol/L Chloride (98-107) mmol/L Carbon Dioxide (21-32) mmol/L Anion Gap (3-11) BUN (6-23) mg/dl Creatinine (0.6-1.2) mg/dl Est Cr Clr Drug Dosing ml/min Est GFR ( Amer) ml/min Est GFR (Non-Af Amer) ml/min BUN/Creatinine Ratio (10-20) Glucose (70-99(Fasting)) mg/dl Lactate (0.4-2.0) mmol/L Calcium (8.5-10.1) mg/dl Total Bilirubin (0.2-1.0) mg/dl AST (13-39) U/L ALT (7-52) U/L Alkaline Phosphatase (34-104) U/L Troponin I (0-0.04) ng/ml B-Natriuretic Peptide (0-100) pg/ml Total Protein (6.0-8.3) gm/dl Albumin (3.4-5.0) gm/dl Globulin (2.5-4.0) gm/dl Albumin/Globulin Ratio (0.9-2) TSH (0.300-4.500) uIu/ml Free T4 (0.61-1.60) ng/dl Urine Color Yellow Urine Appearance Clear (Clear) Urine pH 5.0 (4.5-7.5) Ur Specific [place] > 1.045 H (1.000-1.030) Urine Protein Trace H (Negative) Urine Glucose (UA) Negative (Negative) Urine Ketones 1+ H (Negative) Urine Blood Negative (Negative) Urine Nitrite Negative (Negative) Urine Bilirubin Negative (Negative) Urine Urobilinogen Negative (Negative) Ur Leukocyte Esterase Negative (Negative) Urine WBC (Auto) 10-30 H (0-5) /hpf Urine RBC (Auto) 5-10 H (0-4) /hpf U Hyaline Cast (Auto) 1-5 (0-5) /lpf U Epithel Cells (Auto) >30 H (0-5) /lpf Urine Bacteria (Auto) Negative (Negative) SARS-CoV-2 (PCR) NEGATIVE (Negative) Influenza Type A (PCR) Negative (Neg) Influenza Type B (PCR) Negative (Neg) RSV (RT-PCR) Negative (Neg) Administered Medications Discontinued Medications Sodium Chloride (Nss) 500 mls @ 999 mls/hr IV .Q31M ALISSA Stop: 07/22/21 15:45 Last Infusion: 07/22/21 16:11 Dose: 0 mls/hr Documented by: [id number] Admin: 07/22/21 15:38 Dose: 999 mls/hr Documented by: [id number] Ceftriaxone Sodium (Rocephin) 1,000 mg in 50 mls @ 100 mls/hr IV NOW STA Stop: 07/22/21 19:57 Last Admin: 07/22/21 19:41 Dose: 100 mls/hr Documented by: [id number] Ioversol (Optiray 320 100ml) 95 ml IV ONCE ONE Stop: 07/22/21 17:19 Last Admin: 07/22/21 17:19 Dose: 95 ml Documented by: [id number] Ondansetron HCl (Ondansetron Inj 2 Mg/Ml 2 Ml Vial) 4 mg IV NOW STA Stop: 07/22/21 15:12 Last Admin: 07/22/21 15:37 Dose: 4 mg Documented by: [id number] Imaging Data Radiologist's Impression: Chest X-Ray 07/22/21 15:11 XR chest 1V portable HISTORY: 80 years-old Female weakness acute weakness COMPARISON: Chest radiograph 06/30/2021 TECHNIQUE: Upright AP view of the chest FINDINGS: Unchanged cardiac mediastinal and hilar silhouettes. Loop recorder device. Moderately improved aeration of the lungs with persistent ill-defined interstitial coarsening with bilateral airspace opacities greatest within the lung zones. No pneumothorax, pleural effusion or overt pulmonary edema. Mild rig ht hemidiaphragmatic elevation. Bones appear grossly intact. IMPRESSION: Moderately improved aeration of the lungs compatible with resolving viral pneumonia. ACT 112: Negative or not required by law. The above report was generated using voice recognition software. It may contain grammatical, syntax or spelling errors. Electronically signed by: Thang Cortez M.D. 07/22/2021 3:41 PM Abdomen/Pelvis CT 07/22/21 15:[address] WITH IV CONTRAST CT DOSE: 785.64 mGy.cm HISTORY: Nausea TECHNIQUE: Multiaxial CT images of the abdomen and pelvis were performed following the use of intravenous contrast. A dose lowering technique was utilized adhering to the principles of ALARA. COMPARISON STUDY: Abdomen and pelvis CT 08/03/2020. FINDINGS: Scattered patchy and irregular airspace opacities within the lung bases. This favors a viral pneumonia. No pneumoperitoneum. No pneumatosis. No fractures within the visualized osseous structures. There is a 9 cm elongated subcutaneous thick-walled fluid collection within the right anterior chest wall. This is new from the prior study and favors a postoperative seroma. Subtle nodular contour to the liver suggestive of early cirrhosis. No hepatic masses identified. A few small gallstones. No gallbladder wall thickening. Adenomyomatosis noted at the gallbladder fundus. The pancreas and spleen are unremarkable. Bilateral adrenal gland nodules remain stable. The largest on the right measures 1.9 cm. Normal right kidney. No hydronephrosis. Multiple small hypodense left renal lesions with the largest in the lower pole measuring 11 mm. These favor cysts. No retroperitoneal lymphadenopathy. Moderate calcified plaque within the normal caliber abdominal aorta and iliac arteries. There is an 8 mm left perinephric soft tissue nodule on image 146. The bladder is decompressed. There are calcifications at the vaginal cuff status post hysterectomy. This remains unchanged. No pelvic free fluid or pelvic lymphadenopathy. A few colonic diverticula. No evidence for acute diverticulitis. No bowel wall thickening or obstruction. IMPRESSION: 1. No bowel wall thickening or obstruction. 2. A few colonic diverticula. No evidence for acute diverticulitis. 3. Cholelithiasis. No gallbladder wall thickening. 4. An indeterminate 8 mm left perinephric soft tissue nodule. Follow-up abdomen and pelvis CT in 3 months is recommended to ensure stability and to exclude the possibility of a neoplastic/metastatic focus. 5. There is 9 cm thick-walled fluid collection within the right anterior chest wall. This favors a postoperative seroma. 6. Patchy bibasilar airspace opacities likely represents a viral pneumonia. 7. Additional findings as described above. ACT 112: Negative or not required by law. Electronically signed by: Robles Hurst M.D. 07/22/2021 5:[address] 07/22/21 15:12 CT OF THE HEAD WITHOUT CONTRAST CLINICAL HISTORY: Altered mental status. COMPARISON STUDY: Head CT and MRI of the brain January 30, 2021. CT DOSE: 537.48 mGy.cm TECHNIQUE: Helical axial images of the head were obtained without IV contrast. Automated exposure control was utilized for the study. A dose lowering technique was utilized adhering to the principles of ALARA. FINDINGS: No acute intracranial hemorrhage, midline shift or mass effect is present. The ventricular system is stable. White matter hypodensities are similar to prior exam and favor small vessel disease. The basal cisterns are patent. No extra-axial collections are present. There are no findings to suggest acute dural sinus thrombosis or acute territorial infarct. No significant calvarial abnormalities are present. Visualized portions of the sinuses and mastoid air cells are clear. Hyperdense material within the distal left vertebral artery is again noted. IMPRESSION: No acute intracranial findings. No change in appearance of the brain. ACT 112: Negative or not required by law. Electronically signed by: Manolo Rueda M.D. 07/22/2021 5:29 PM Discharge Plan Visit Data Chief Complaint: Weakness ED Provider: Noe Rivas Discharge Problem: Hypoxia Forms Stand Alone Forms: [facility] [employer] Prescriptions Prescriptions: No Action Eliquis 5 mg tablet 5 mg PO BID RF: 0 lorazepam 0.5 mg tablet 0.5 mg PO TID PRN (Reason: Anxiety or muscle spasm) Qty: 30 RF: 0 gabapentin 300 mg capsule 600 mg PO BID Qty: 360 RF: 1 rosuvastatin [Crestor] 20 mg tablet 20 mg PO HS Qty: 90 RF: 3 cetirizine 10 mg tablet 10 mg PO QAM Qty: 90 RF: 1 venlafaxine 150 mg capsule,extended release 24hr 150 mg PO BID Qty: 180 RF: 3 oxybutynin chloride 10 mg tablet extended release 24hr 10 mg PO DAILY Qty: 90 RF: 3 (DME) OneTouch Ultra Test Strip See Rx Instructions .Route Qty: 300 RF: 1 (DME) diaper,brief,adult,disposable Misc See Rx Instructions .Route Qty: 60 RF: 5 (DME) Underpads Regular Pad See Rx Instructions .Route Qty: 40 RF: 5 hydroxyzine HCl 25 mg tablet 25 mg PO BID PRN (Reason: Itching) RF: 0 omeprazole 40 mg capsule,delayed release(DR/EC) 40 mg PO QAM RF: 0 aspirin 81 mg tablet,chewable 81 mg PO QAM RF: 0 PreserVision Lutein 226 mg-200 unit -5 mg-0.8 mg Capsule 1 cap PO QAM RF: 0 anastrozole 1 mg tablet 1 mg PO QAM RF: 0 donepezil 5 mg Tablet 5 mg PO HS RF: 0 insulin aspart U-100 [Novolog Flexpen U-100 Insulin] 100 unit/mL (3 mL) insulin pen 1 unit subcut DIRECTED RF: 0 clopidogrel 75 mg tablet 75 mg PO DAILY RF: 0 levothyroxine [Tirosint] 75 mcg capsule 75 mcg PO QAM RF: 0 Levemir FlexTouch U-100 Insuln 100 unit/mL (3 mL) insulin pen 40 unit subcut BID RF: 0 Referrals Referrals: Sumit De La Cruz MD [Primary Care Provider] -
--- NOTE | 2021-07-22 15:43 | XRay Report ---
XR chest 1V portable HISTORY: 80 years-old Female weakness acute weakness COMPARISON: Chest radiograph 06/30/2021 TECHNIQUE: Upright AP view of the chest FINDINGS: Unchanged cardiac mediastinal and hilar silhouettes. Loop recorder device. Moderately improved aerati on of the lungs with persistent ill-defined interstitial coarsening with bilateral airspace opacities greatest within the lung zones. No pneumothorax, pleural effusion or overt pulmonary edema. Mild rig ht hemidiaphragmatic elevation. Bones appear grossly intact. IMPRESSION: Moderately improved aeration of the lungs compatible with resolving viral pneumonia. ACT 112: Negative or not required by law. The above report was generated using voice recognition software. It may contain grammatical, syntax o r spelling errors. Electronically signed by: Thang Cortez M.D. 07/22/2021 3:41 PM
[2021-07-22 15:52] LABS: INR 1.1 (0.9-1.1); Prothrombin Time 10.9 Seconds (9.0-12.0)
[2021-07-22 15:54] LABS: Troponin I < 0.03 ng/ml (0-0.04)
[2021-07-22 16:02] LABS: Alanine Aminotransferase 15 U/L (7-52); Albumin Level 3.9 gm/dl (3.4-5.0); Alkaline Phosphatase 73 U/L (34-104); Anion Gap 12 (3-11); BUN Creatinine Ratio 16.8 (10-20); Bilirubin,Total 0.5 mg/dl (0.2-1.0); Blood Urea Nitrogen 19 mg/dl (6-23); Calcium 10.1 mg/dl (8.5-10.1); Carbon Dioxide 27 mmol/L (21-32); Chloride 103 mmol/L (98-107); Creatinine Clr Calc Pharmacy 37.6 ml/min; Est GFR (African American) 53.2 ml/min; Est GFR (Non-African American) 45.9 ml/min; Globulin 3.9 gm/dl (2.5-4.0); Glucose 139 mg/dl (70-99(Fasting)); Sodium 142 mmol/L (136-145); Total Protein 7.8 gm/dl (6.0-8.3)
[2021-07-22 16:09] LABS: Hematocrit (blood only) 45.7 % (37-47); Hemoglobin 14.4 g/dL (12.0-16.0); Mean Corpuscular Hemoglobin 28.7 pg (25-34); Mean Corpuscular Hgb Conc 31.5 g/dL (32-36); Mean Platelet Volume 11.9 fL (7.4-10.4); Platelet Count 483 K/uL (130-400); RDW Coefficient of Variation 14.9 % (11.5-14.5); RDW Standard Deviation 49.1 fL (36.4-46.3); Red Blood Count 5.02 M/uL (4.2-5.4); White Blood Count 12.51 K/uL (4.8-10.8)
[2021-07-22 16:10] LABS: Basophils # (auto) 0.03 K/uL (0-0.2); Basophils % (auto) 0.2 %; Eosinophils # (auto) 0.37 K/uL (0-0.5); Immature Granulocytes # (auto) 0.03 K/uL (0.00-0.02); Immature Granulocytes % (auto) 0.2 %; Lymphocytes # (auto) 2.32 K/uL (1.2-3.4); Lymphocytes % (auto) 18.5 %; Monocytes # (auto) 0.91 K/uL (0.11-0.59); Monocytes % (auto) 7.3 %; Neutrophils # (auto) 8.85 K/uL (1.4-6.5); Neutrophils % (auto) 70.8 %
[2021-07-22 16:16] LABS: Base Excess VBG 3.6 mEq/L; HCO3 VBG 30 mmol/L; PCO2 VBG 55 mmHg (38-50); PO2 VBG 25 mmHg; pH VBG 7.36 (7.36-7.41)
[2021-07-22 16:22] LABS: Thyroid Stimulating Hormone 4.695 uIu/ml (0.300-4.500)
[2021-07-22 16:25] LABS: Oxygen Saturation VBG < 60.0 %
[2021-07-22 16:53] LABS: Potassium 4.2 mmol/L (3.5-5.1)
[2021-07-22 16:55] LABS: T4 Free Thyroxine 0.77 ng/dl (0.61-1.60)
[2021-07-22] MEDS ORDERED: OPTIRAY 320 100ml IV ONE (17:18)
--- NOTE | 2021-07-22 17:30 | CT Scan Report ---
CT OF THE HEAD WITHOUT CONTRAST CLINICAL HISTORY: Altered mental status. COMPARISON STUDY: Head CT and MRI of the brain January 30, 2021. CT DOSE: 537.48 mGy.cm TECHNIQUE: Helical axial images of the head were obtained without IV contrast. Automated exposure con trol was utilized for the study. A dose lowering technique was utilized adhering to the principles o f ALARA. FINDINGS: No acute intracranial hemorrhage, midline shift or mass effect is present. The ventricular system is stable. White matter hypodensities are similar to prior exam and favor small vessel disease . The basal cisterns are patent. No extra-axial collections are present. There are no findings to sug gest acute dural sinus thrombosis or acute territorial infarct. No significant calvarial abnormalitie s are present. Visualized portions of the sinuses and mastoid air cells are clear. Hyperdense materia l within the distal left vertebral artery is again noted. IMPRESSION: No acute intracranial findings. No change in appearance of the brain. ACT 112: Negative or not required by law. Electronically signed by: Manolo Rueda M.D. 07/22/2021 5:29 PM
--- NOTE | 2021-07-22 17:30 | Electrocardiogram Report ---
Test Reason : Blood Pressure : / mmHG Vent. Rate : 089 BPM Atrial Rate : 089 BPM P-R Int : 172 ms QRS Dur : 066 ms QT Int : 408 ms P-R-T Axes : 046 -11 058 degrees QTc Int : 496 ms Poor data quality, interpretation may be adversely affected Sinus rhythm with PACs possible Inferior infarct (cited on or before 30-JUN-2021) Abnormal ECG Confirmed by Sumit Mccullough ([id number]) on 07/22/2021 5:30:04 PM Referred By: Confirmed By:Lonnie Mccullough
--- NOTE | 2021-07-22 17:38 | CT Scan Report ---
ABDOMEN AND PELVIS CT WITH IV CONTRAST CT DOSE: 785.64 mGy.cm HISTORY: Nausea TECHNIQUE: Multiaxial CT images of the abdomen and pelvis were performed following the use of intrave nous contrast. A dose lowering technique was utilized adhering to the principles of ALARA. COMPARISON STUDY: Abdomen and pelvis CT 08/03/2020. FINDINGS: Scattered patchy and irregular airspace opacities within the lung bases. This favors a lesa l pneumonia. No pneumoperitoneum. No pneumatosis. No fractures within the visualized osseous structur es. There is a 9 cm elongated subcutaneous thick-walled fluid collection within the right anterior ch est wall. This is new from the prior study and favors a postoperative seroma. Subtle nodular contour to the liver suggestive of early cirrhosis. No hepatic masses identified. A few small gallstones. No gallbladder wall thickening. Adenomyomatosis noted at the gallbladder fundus. The pancreas and spleen are unremarkable. Bilateral adrenal gland nodules remain stable. The largest on the right measures 1 .9 cm. Normal right kidney. No hydronephrosis. Multiple small hypodense left renal lesions with the l argest in the lower pole measuring 11 mm. These favor cysts. No retroperitoneal lymphadenopathy. Mode rate calcified plaque within the normal caliber abdominal aorta and iliac arteries. There is an 8 mm left perinephric soft tissue nodule on image 146. The bladder is decompressed. There are calcificatio ns at the vaginal cuff status post hysterectomy. This remains unchanged. No pelvic free fluid or pelv ic lymphadenopathy. A few colonic diverticula. No evidence for acute diverticulitis. No bowel wall th ickening or obstruction. IMPRESSION: 1. No bowel wall thickening or obstruction. 2. A few colonic diverticula. No evidence for acute diverticulitis. 3. Cholelithiasis. No gallbladder wall thickening. 4. An indeterminate 8 mm left perinephric soft tissue nodule. Follow-up abdomen and pelvis CT in 3 mo nths is recommended to ensure stability and to exclude the possibility of a neoplastic/metastatic foc us. 5. There is 9 cm thick-walled fluid collection within the right anterior chest wall. This favors a po stoperative seroma. 6. Patchy bibasilar airspace opacities likely represents a viral pneumonia. 7. Additional findings as described above. ACT 112: Negative or not required by law. Electronically signed by: Robles Hurst M.D. 07/22/2021 5:37 PM
[2021-07-22 18:49] LABS: Appearance Urine Clear (Clear); Bacteria Urine Automated Negative (Negative); Bilirubin Urine Negative (Negative); Blood Urine Negative (Negative); Color Urine Yellow; Epithelial Cell Urine Auto >30 /lpf (0-5); Glucose Urine UA Negative (Negative); Ketones Urine 1+ (Negative); Leukocyte Esterase Urine Negative (Negative); Nitrite Urine Negative (Negative); Protein Urine Trace (Negative); Urobilinogen Urine Negative (Negative)
[2021-07-22 18:57] LABS: Specific Gravity Urine > 1.045 (1.000-1.030)
[2021-07-22 19:25] LABS: Influenza A virus by PCR Negative (Neg); Influenza B virus by PCR Negative (Neg); RSV by PCR Negative (Neg); SARS CoV2 RNA(COVID-19) InHosp NEGATIVE (Negative)
[2021-07-22] MEDS ORDERED: AZITHROMYCIN 500 MG in DEXTROSE 5% 250 ML IV STA (19:28)
[2021-07-22] MEDS ORDERED: cefTRIAXone SODIUM 1,000 MG/50 ML BAG IV STA (19:28)
[2021-07-22] MEDS ORDERED: ENOXAPARIN INJ 40 MG/0.4 ML SYR SQ SCH (20:30)
--- NOTE | 2021-07-22 20:37 | History & Physical Report ---
Date of Service July 22, 2021 Assessment & Plan (1) Generalized weakness: Plan: Likley related to recovering from COVID as well as hospitalization deconditioning - PT/OT consult - may benefit from rehab - case management consult placed (2) Hypoxia: Plan: Pneumonia vs. COPD vs. Recovering from COVID - With WBC elevation and sputum production - will treat for pneumonia with azithromycin - If fevers occur or WBC worsen would broaden out for HCAP coverage - CT scan of the chest pending (3) History of COVID-19: Plan: Patient symptoms are likely related to recovery of COVID and post hospitalization - supportive care and follow her clinical course - pt/ot consult - nutritional consult - follow pulmonary support - treat possible bacterial pna vs. copd vs. continued recovery of covid - may benefit from rehab (4) Chronic obstructive pulmonary disease: Plan: Unknown severity- does not appear to be on any inhalers as outpatient - Will add on BESSY for dyspnea (5) Atrial fib/flutter, transient: Plan: PAF- with loop recorder in - continue apixaban - rate controlled - not on agents (6) Chronic kidney disease, stage 3: Plan: Stable- follow (7) PA (obstructive sleep apnea): Plan: CPAP at 10cm H20 Patient min pressure 5 max pressure 15 (8) Breast cancer: Plan: Continue anastrazole radiation therapy (9) Diabetes mellitus type 2, uncontrolled: Plan: Continue basal insulin - bolus insulin sliding scale- CF 20 no carb coverage for now- follow her oral intake - nutritional consult placed for evaluation and supplementation (10) Hyperlipidemia: Plan: Continue statin History of Present Illness Primary Care Provider: Sumit De La Cruz MD 80 YOF with past medical history of: 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 Patient comes to the emergency room today for complaints of fatigue, loss of appetite, dyspnea and cough. The patient was admitted to [facility] in Jun 23 for COVID 19, she was discharged on to home following this. The patient states that she continues to just feel exhausted, will start to eat and just gets to tired to continue. She also endorses decreased fluid intake. She remains with productive cough, that she reports as thick yellow sputum which has changed sinc e her discharge from there. She was mildly hypoxic on admission to the [facility] to 88% on room air. She denies fevers. She has a niece that checks on her as her resident care provider daily and tries to assist her at home. In the [facility] she had a CXR done, blood cultures, flores catheter placed and routine labs performed. She had WBC of 12 with mild NLR, negative COVID and flu test. CXR revealed bilateral airspace opacities and improvement aeration in her lungs compared to 06/30/21. She had CT scan of abdomen and pelvis done for abdominal pain with no acute process. She was given 500mg of Azithromycin for concern of pneumonia. Overall this is likely continued deconditioning and recovery phase of COVID 19. She does have COPD history and her baseline oxygenation level is not known and no PFTs to review. Will continue her Azithromycin follow biomarkers, PCT added on and will obtain CT scan of her chest without contrast to further evaluate her pulmonary process. COVID test on admission is: NEGATIVE Allergies Allergy/AdvReac Type Severity Reaction Status Date / Time adhesive Allergy Intermediate BLISTERS Verified 07/22/21 15:53 amitriptyline AdvReac Intermediate HALLUCINATI Verified 07/22/21 15:53 ONS atorvastatin AdvReac Intermediate JOINT PAIN Verified 07/22/21 15:53 cephalexin AdvReac Intermediate N/V Verified 07/22/21 15:53 pioglitazone AdvReac Intermediate SEVERE Verified 07/22/21 15:53 FATIGUE tramadol AdvReac Intermediate N/V Verified 07/22/21 15:53 codeine AdvReac Mild NAUSEA AND Verified 07/22/21 15:53 VOMITING doxycycline AdvReac Mild GI SYMPTOMS Verified 07/22/21 15:53 hydroxychloroquine AdvReac Mild Diarrhea Verified 07/22/21 15:53 [From Plaquenil] liraglutide AdvReac Mild GI UPSET Verified 07/22/21 15:53 metformin AdvReac Mild NAUSEA AND Verified 07/22/21 15:53 VOMITING phenol AdvReac Mild GI UPSET Verified 07/22/21 15:53 propylene glycol AdvReac Mild GI UPSET Verified 07/22/21 15:53 saccharin AdvReac Mild diarrhea Verified 07/22/21 15:53 zoster vaccine live AdvReac Unknown Unknown Verified 02/25/22 15:53 [From Zostavax ()] Home Medications Medication Instructions Recorded Confirmed Type vit C-vit [id number] ox-lutein 1 cap PO QAM 09/04/18 07/22/21 History 226 mg-200 unit-5 mg-0.8 mg capsule (PreserVision Lutein) aspirin 81 mg chewable tablet 81 mg PO QAM 01/21/19 07/22/21 History hydroxyzine HCl 25 mg tablet 25 mg PO BID PRN 09/09/20 07/22/21 History omeprazole 40 mg capsule,delayed 40 mg PO QAM cap 09/09/20 07/22/21 History release levothyroxine 75 mcg capsule 75 mcg PO QAM 09/13/20 07/22/21 History (Tirosint) lorazepam 0.5 mg tablet 0.5 mg PO TID PRN #30 tab 12/02/20 07/22/21 Rx gabapentin 300 mg capsule 600 mg PO BID #360 cap 12/03/20 07/22/21 Rx anastrozole 1 mg tablet 1 mg PO QAM 01/19/21 07/22/21 History rosuvastatin 20 mg tablet (Crestor) 20 mg PO HS #90 tab 02/07/21 07/22/21 Rx apixaban 5 mg tablet (Eliquis) 5 mg PO BID 05/05/21 07/22/21 History donepezil 5 mg tablet 5 mg PO HS 05/19/21 07/22/21 History insulin aspart U-100 100 unit/mL 1 unit SUBCUT DIRECTED 05/19/21 07/22/21 History (3 mL) subcutaneous pen (Novolog Flexpen U-100 Insulin aspart) cetirizine 10 mg tablet 10 mg PO QAM #90 tab 05/23/21 07/22/21 Rx venlafaxine 150 mg 150 mg PO BID #180 cap 05/23/21 07/22/21 Rx capsule,extended release 24 hr blood sugar diagnostic (OneTouch #300 ea 05/24/21 07/22/21 Rx Ultra Test) oxybutynin chloride 10 mg 10 mg PO DAILY #90 tab 05/24/21 07/22/21 Rx tablet,extended release 24 hr insulin detemir U-100 100 unit/mL 40 unit SUBCUT BID 06/30/21 07/22/21 History (3 mL) subcutaneous pen (Levemir FlexTouch U-100 Insulin) diaper,brief,adult,disposable #60 ea 07/11/21 07/22/21 Rx incontinence pad, liner, disp #40 ea 07/11/21 07/22/21 Rx (Underpads Regular) clopidogrel 75 mg tablet 75 mg PO DAILY 07/22/21 07/22/21 History Past Med/Surg History Medical History Allergic rhinitis Aneurysm, cerebral, nonruptured LV4 aneurysm treated with stent/coil 2016 Per 01/30/21 Head CTA = No change in a 4 mm saccular aneurysm of the distal right middle cerebral artery and a 2 mm basilar artery aneurysm. Anxiety Asthma well controlled per pt > no inhalers Asymptomatic hyperuricemia Atrial aneurysm Atrial fib/flutter, transient Follows [facility] > no cardioversions Loop recorder in place - [employer]- placed 09/05/18 Breast cancer DX in 2009> bilat mastectomy >no chemo Recently diagnosed with metastatic right breast carcinoma 08/13/20 Carotid artery stenosis Follows with [facility]. S/p CEA years ago Per 01/30/21 neck CTA- severe stenosis at origin of left vertebral artery. Occlusion of the proximal to mid right vertebral artery with distal reconstitution. Stable 5 mm outpouching of the proximal right internal carotid artery with possible associated short segment dissection, unchanged. Moderate atherosclerotic plaque with the major vessels of the neck Central stenosis of spinal canal Chronic kidney disease, stage 3 follows PCP > Dr. De La Cruz Chronic obstructive pulmonary disease has more difficulty at night with breathing. ok during day On oxygen in the past but no longer using CLL (chronic lymphocytic leukemia) Coronary artery calcification Based on calcified coronary arteries on CT Scan Abd/Pelvis 08/03/20 Deep vein thrombosis several yrs ago> left leg > caused from control pills Depression Diabetes mellitus type 2, uncontrolled IDDM A1C 10.6 in 12/2020 (improvement from 12.6% in August 2020) Diabetic nephropathy Gastroesophageal reflux disease Hyperlipidemia Hypertension Hypothyroidism Left hemiparesis From stroke in November 2019 Lumbar radiculopathy Lumbar spinal stenosis Lumbar stenosis with neurogenic claudication Nonalcoholic steatohepatitis On home oxygen therapy no longer using at this time Osteoarthritis bilateral knees, legs, hands Osteopenia Polycythemia Recurrent cancer of right breast (08/13/20) Initially diagnosed 2009- s/p bilateral mastectomy recurrence to chest wall s/p XRT 07/2020 Sensorineural hearing loss (SNHL) of both ears Short-term memory loss Sleep related hypoxia Sleep apnea > does not use CPAP Stroke December 05, 2019 > [facility] > has short term memory loss as result > left side weakness TIA (transient ischemic attack) Jan 2021 TMJ syndrome Urinary frequency Vertebral artery stenosis Per 01/30/21 neck CTA- severe stenosis at origin of left vertebral artery. Occlusion of the proximal to mid right vertebral artery with distal reconstitution. Stable 5 mm outpouching of the proximal right internal carotid artery with possible associated short segment dissection, unchanged. Moderate atherosclerotic plaque with the major vessels of the neck Surgical History H/O varicose vein ligation and stripping left leg History of appendectomy History of brain surgery Cerebral angiogram and stent-assisted coil embolization of the It PICA aneurysm. 12/22/2015 [facility] History of breast lump/mass excision History of carotid endarterectomy Right side per records Over 6 yrs ago > [facility] History of cataract surgery Right: July 2012 Left: August 2012 History of colonoscopy History of hysterectomy Ovaries intact History of mastectomy bilateral September 2009 History of parathyroid surgery Excision of benign neoplasm History of shoulder surgery Right shoulder arthroscopic labral debridement, subacromial decompression, and acromioplasty excision distal clavicle, biceps tenotomy. 06/15/2014 History of total knee replacement left 01/11/2012 Hx of excision of mass from chest wall > right side > radiation now complete Hx of tonsillectomy Family History Grandmother No problems noted. Father , in his 50s of lung cancer Lung disease Lung cancer Mother , in her 70s of cancer Cancer Hypertension Unknown , Niece at 37 Colon cancer Son Anxiety Depression Kidney stones Alcohol abuse Grandmother (Maternal) Lung cancer Sister COPD (chronic obstructive pulmonary disease) Son MVA (motor vehicle accident) Son Rheumatic fever Daughter Medical history unknown Denies family history of Ovarian cancer Prostate cancer Myocardial infarction Breast cancer Bleeding disorder Social History Smoking Status: Current every day smoker Tobacco Type: Cigarettes Age Started Using Tobacco: 16; Years Smoked: 60; Cigarettes Per Day: 2; Second Hand Exposure: Yes; Do You Dip or Chew Tobacco: No; Hx Alcohol Use: No Hx Substance Use: No Preferred Language: Palestinian Communication Ability: Effective Visual Impairment: No Limitations Hearing Ability: Normal Label Stamper Required: No Beliefs That Will Affect Care: None marital status: Current Living Situation: Spouse current occupational status: retired 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 [employer] How many Children do You have: 4 How many Children do You have Comment: Pregnancies:6 Children:4 :1 Feels Safe at Home: Yes Childhood Exposure to Second-Hand Smoke: Yes caffeine: Yes during the past year weight has: remained stable Dental Care, Regularly: No Physical Activity Frequency: Does not Exercise Seatbelt Use: never Assistive Devices: Oxygen - Continuous Review of Systems Review of Systems: REVIEW OF SYSTEMS: Constitutional: (+) Fatigue and generalized weakness No fever, sweats or chills Eyes: No diplopia, no worsening or blurred vision ENT: normal hearing, no trouble swallowing Respiratory: (+) cough, sputum, dyspnea at rest or on exertion Cardiovascular: No chest pain, tightness or palpitations Abdomen: (+) diarrhea, No pain, nausea, vomiting, or constipation Musculoskeletal: No joint pain, calf pain, swelling Neurologic: No focal weakness, numbness/tingling, or balance problems Psychiatric: No anxiety or depression Skin: No rash or itch Physical Exam Physical Exam: PHYSICAL EXAM: General: awake, alert, no apparent distress Head: Normocephalic, atraumatic ENT: PERRLA, EOMI, no pharyngeal exudate, mucous membranes dry Neuro: AAO x 3, speech clear and appropriate, strength intact bilaterally 5/5, sensation intact and equal all extremities and dermatomes, no pronator drift Chest: equal rise and fall of the chest, no accessory muscle use, no heaves or thrills, scattered wheeze and rhonci on 2lnc Cardiac: Regular rate and rhythm, telemetry reviewed-NSR, skin warm dry, cap refill <3 seconds, peripheral pulses +2 no JVD, no murmur, GI: NABS x 4 quadrants, soft, nontender to palpation, no rebound, guarding or tenderness : Flores to gravity, no pain, no CVA tenderness, Extremities: Normal inspection, no peripheral edema or erythema, calfs nontender to palpation Psych: Normal mood and affect Skin: no rash or erythema Results & Data Results & Data ([facility]) Vital Signs (Past 12 Hours) Vital Signs Temp Pulse Pulse Resp BP BP Pulse Ox 07/22/21 20:09 93 H 18 134/72 98 07/22/21 19:22 86 L 07/22/21 18:17 92 H 18 138/64 97 07/22/21 15:26 91 H 18 98 07/22/21 14:32 36.7 C 88 88 18 119/88 119/88 98 Laboratory Results Abnormal lab results 07/22/21 07/22/21 07/22/21 Range/Units 14:29 14:29 15:31 WBC 12.51 H (4.8-10.8) K/uL MCHC 31.5 L (32-36) g/dL RDW Std Deviation 49.1 H (36.4-46.3) fL RDW Coeff of Milton 14.9 H (11.5-14.5) % Plt Count 483 H (130-400) K/uL MPV 11.9 H (7.4-10.4) fL Neut # (Auto) 8.85 H (1.4-6.5) K/uL Darke # (Auto) 0.91 H (0.11-0.59) K/uL Immature Gran # (Auto) 0.03 H (0.00-0.02) K/uL VBG pCO2 (38-50) mmHg Anion Gap 12 H (3-11) Glucose 139 H (70-99(Fasting)) mg/dl Lactate (0.4-2.0) mmol/L TSH 4.695 H (0.300-4.500) uIu/ml Ur Specific [place] (1.000-1.030) Urine Protein (Negative) Urine Ketones (Negative) Urine WBC (Auto) (0-5) /hpf Urine RBC (Auto) (0-4) /hpf U Epithel Cells (Auto) (0-5) /lpf 07/22/21 07/22/21 07/22/21 Range/Units 15:54 15:54 18:34 WBC (4.8-10.8) K/uL MCHC (32-36) g/dL RDW Std Deviation (36.4-46.3) fL RDW Coeff of Milton (11.5-14.5) % Plt Count (130-400) K/uL MPV (7.4-10.4) fL Neut # (Auto) (1.4-6.5) K/uL Darke # (Auto) (0.11-0.59) K/uL Immature Gran # (Auto) (0.00-0.02) K/uL VBG pCO2 55 H (38-50) mmHg Anion Gap (3-11) Glucose (70-99(Fasting)) mg/dl Lactate 2.4 H* (0.4-2.0) mmol/L TSH (0.300-4.500) uIu/ml Ur Specific [place] > 1.045 H (1.000-1.030) Urine Protein Trace H (Negative) Urine Ketones 1+ H (Negative) Urine WBC (Auto) 10-30 H (0-5) /hpf Urine RBC (Auto) 5-10 H (0-4) /hpf U Epithel Cells (Auto) >30 H (0-5) /lpf Diagnostic Findings Chest X-Ray 07/22/21 15:11 XR chest 1V portable HISTORY: 80 years-old Female weakness acute weakness COMPARISON: Chest radiograph 06/30/2021 TECHNIQUE: Upright AP view of the chest FINDINGS: Unchanged cardiac mediastinal and hilar silhouettes. Loop recorder device. Moderately improved aeration of the lungs with persistent ill-defined interstitial coarsening with bilateral airspace opacities greatest within the lung zones. No pneumothorax, pleural effusion or overt pulmonary edema. Mild right hemidiaphragmatic elevation. Bones appear grossly intact. IMPRESSION: Moderately improved aeration of the lungs compatible with resolving viral pneumonia. ACT 112: Negative or not required by law. The above report was generated using voice recognition software. It may contain grammatical, syntax or spelling errors. Electronically signed by: Thang Cortez M.D. 07/22/2021 3:41 PM Abdomen/Pelvis CT 07/22/21 15:[address] WITH IV CONTRAST CT DOSE: 785.64 mGy.cm HISTORY: Nausea TECHNIQUE: Multiaxial CT images of the abdomen and pelvis were performed following the use of intravenous contrast. A dose lowering technique was utilized adhering to the principles of ALARA. COMPARISON STUDY: Abdomen and pelvis CT 08/03/2020. FINDINGS: Scattered patchy and irregular airspace opacities within the lung bases. This favors a viral pneumonia. No pneumoperitoneum. No pneumatosis. No fractures within the visualized osseous structures. There is a 9 cm elongated subcutaneous thick-walled fluid collection within the right anterior chest wall. This is new from the prior study and favors a postoperative seroma. Subtle nodular contour to the liver suggestive of early cirrhosis. No hepatic masses identified. A few small gallstones. No gallbladder wall thickening. Adenomyomatosis noted at the gallbladder fundus. The pancreas and spleen are unremarkable. Bilateral adrenal gland nodules remain stable. The largest on the right measures 1.9 cm. Normal right kidney. No hydronephrosis. Multiple small hypodense left renal lesions with the largest in the lower pole measuring 11 mm. These favor cysts. No retroperitoneal lymphadenopathy. Moderate calcified plaque within the normal caliber abdominal aorta and iliac arteries. There is an 8 mm left perinephric soft tissue nodule on image 146. The bladder is decompressed. There are calcifications at the vaginal cuff status post hysterectomy. This remains unchanged. No pelvic free fluid or pelvic lymphadenopathy. A few colonic diverticula. No evidence for acute diverticulitis. No bowel wall thickening or obstruction. IMPRESSION: 1. No bowel wall thickening or obstruction. 2. A few colonic diverticula. No evidence for acute diverticulitis. 3. Cholelithiasis. No gallbladder wall thickening. 4. An indeterminate 8 mm left perinephric soft tissue nodule. Follow-up abdomen and pelvis CT in 3 months is recommended to ensure stability and to exclude the possibility of a neoplastic/metastatic focus. 5. There is 9 cm thick-walled fluid collection within the right anterior chest wall. This favors a postoperative seroma. 6. Patchy bibasilar airspace opacities likely represents a viral pneumonia. 7. Additional findings as described above. ACT 112: Negative or not required by law. Electronically signed by: Robles Hurst M.D. 07/22/2021 5:[address] 07/22/21 15:12 CT OF THE HEAD WITHOUT CONTRAST CLINICAL HISTORY: Altered mental status. COMPARISON STUDY: Head CT and MRI of the brain January 30, 2021. CT DOSE: 537.48 mGy.cm TECHNIQUE: Helical axial images of the head were obtained without IV contrast. Automated exposure control was utilized for the study. A dose lowering technique was utilized adhering to the principles of ALARA. FINDINGS: No acute intracranial hemorrhage, midline shift or mass effect is present. The ventricular system is stable. White matter hypodensities are similar to prior exam and favor small vessel disease. The basal cisterns are patent. No extra-axial collections are present. There are no findings to suggest acute dural sinus thrombosis or acute territorial infarct. No significant calvarial abnormalities are present. Visualized portions of the sinuses and mastoid air cells are clear. Hyperdense material within the distal left vertebral artery is again noted. IMPRESSION: No acute intracranial findings. No change in appearance of the brain. ACT 112: Negative or not required by law. Electronically signed by: Manolo Rueda M.D. 07/22/2021 5:29 PM Medications Administered Home Medications vit C-vit I-uvrjuf-yans ox-lutein 226 mg-200 unit-5 mg-0.8 mg capsule (PreserVision Lutein) 1 cap PO QAM 09/04/18 [History Confirmed 07/22/21] aspirin 81 mg chewable tablet 81 mg PO QAM 01/21/19 [History Confirmed 07/22/21] hydroxyzine HCl 25 mg tablet 25 mg PO BID PRN 09/09/20 [History Confirmed 07/22/21] omeprazole 40 mg capsule,delayed release 40 mg PO QAM cap 09/09/20 [History Confirmed 07/22/21] levothyroxine 75 mcg capsule (Tirosint) 75 mcg PO QAM 09/13/20 [History Confirmed 07/22/21] lorazepam 0.5 mg tablet 0.5 mg PO TID PRN #30 tab 12/02/20 [Rx Confirmed 07/22/21] gabapentin 300 mg capsule 600 mg PO BID #360 cap 12/03/20 [Rx Confirmed 07/22/21] anastrozole 1 mg tablet 1 mg PO QAM 01/19/21 [History Confirmed 07/22/21] rosuvastatin 20 mg tablet (Crestor) 20 mg PO HS #90 tab 02/07/21 [Rx Confirmed 07/22/21] apixaban 5 mg tablet (Eliquis) 5 mg PO BID 05/05/21 [History Confirmed 07/22/21] donepezil 5 mg tablet 5 mg PO HS 05/19/21 [History Confirmed 07/22/21] insulin aspart U-100 100 unit/mL (3 mL) subcutaneous pen (Novolog Flexpen U-100 Insulin aspart) 1 unit SUBCUT DIRECTED 05/19/21 [History Confirmed 07/22/21] cetirizine 10 mg tablet 10 mg PO QAM #90 tab 05/23/21 [Rx Confirmed 07/22/21] venlafaxine 150 mg capsule,extended release 24 hr 150 mg PO BID #180 cap 05/23/21 [Rx Confirmed 07/22/21] blood sugar diagnostic (OneTouch Ultra Test) #300 ea 05/24/21 [Rx Confirmed 07/22/21] oxybutynin chloride 10 mg tablet,extended release 24 hr 10 mg PO DAILY #90 tab 05/24/21 [Rx Confirmed 07/22/21] insulin detemir U-100 100 unit/mL (3 mL) subcutaneous pen (Levemir FlexTouch U- 100 Insulin) 40 unit SUBCUT BID 06/30/21 [History Confirmed 07/22/21] diaper,brief,adult,disposable #60 ea 07/11/21 [Rx Confirmed 07/22/21] incontinence pad, liner, disp (Underpads Regular) #40 ea 07/11/21 [Rx Confirmed 07/22/21] clopidogrel 75 mg tablet 75 mg PO DAILY 07/22/21 [History Confirmed 07/22/21] Active Medications Azithromycin 500 mg/ Dextrose 255 mls @ 127.5 mls/hr IV NOW STA Stop: 07/22/21 21:27 Last Admin: 07/22/21 20:37 Dose: 127.5 mls/hr Documented by: Lactated Ringer's (Lr) 1,000 mls @ 90 mls/hr IV .[id number] ALISSA Stop: 08/21/21 20:59 ECG Additional Comments: Sinus rhythm with PACs possible Inferior infarct (cited on or before 30-JUN-2021) Abnormal ECG Code Status & VTE Plan Code Status CODE: DNR/DNI VTE: SCDS, Apixaban VTE Prophylaxis Plan VTE Prophylaxis will be ordered: Yes Supervising Physician Co-Signing Physician Notes Patient seen and examined, chart reviewed, case discussed with SHANE Cullen and I agree with the assessment and plan as above. In brief, patient is an 80yo female with history of Asthma, COPD, DM, HTN, HLP. She was recently hospitalized with Covid-19 PNA. Presents with ongoing cough productive for green sputum, SOB, weakness and fatigue. Exam - patient hypoxic to 88% on RA on arrival, improved with supplemental O2- 96% on 2L Skin - intact HEENT - NC/AT< PERRL, MMM, neck supple, dry mm Heart - +S1/S2, regular, no m/r/g Lungs - Scattered end-expiratory wheezing Abd - +BS, soft, NT/ND Ext - warm, well perfused Labs and images reviewed. WBC=12.5 - near baseline with CLL [id number] CT Chest with multifocal airspace opacities compatible with recent covid Assessment/Plan - ?bacterial PNA vs COPD/Asthma vs prolonged recovery from Covid with deconditioning -Tx with Ceftriaxone/Azithromycin -PT/OT evaluation PG Care Time/CCT Total # of Minutes Spent Total Time Spent with Patient: Total time spent is greater than 50% in coordination of care (as documented) at patient's floor/unit and/or counseling patient: Coding Level of Care Code 88971 Initial Inpt Care Lvl 3 Diagnoses Generalized weakness R53.1 Hypoxia R09.02 Chronic obstructive pulmonary disease J44.9 COPD type: unspecified COPD Chronic kidney disease, stage 3 N18.32 Chronic kidney disease stage 3 subtype: stage 3b (GFR 30-44) Breast cancer C50.919 Atrial fib/flutter, transient Diabetes mellitus type 2, uncontrolled E11.65 Coma presence: without coma Hyperlipidemia E78.2 Hyperlipidemia type: mixed hyperlipidemia PA (obstructive sleep apnea) G47.33 History of COVID-19 Z86.16 (1) Chronic kidney disease, stage 3 Chronic kidney disease stage 3 subtype: stage 3b (GFR 30-44) Qualified Code(s): N18.32 - Chronic kidney disease, stage 3b (2) Hyperlipidemia Hyperlipidemia type: mixed hyperlipidemia Qualified Code(s): E78.2 - Mixed hyperlipidemia (3) Diabetes mellitus type 2, uncontrolled Coma presence: without coma (4) Chronic obstructive pulmonary disease COPD type: unspecified COPD Qualified Code(s): J44.9 - Chronic obstructive pulmonary disease, unspecified
--- NOTE | 2021-07-22 23:08 | CT Scan Report ---
CT chest diagnostic wo con CLINICAL HISTORY: eval lung opacities- post covid as well TECHNIQUE: Multidetector row helical CT of the chest was performed. Coronal and sagittal reformations were obtained. Automated dose lowering techniques and/or adjustment according to patient size were u tilized for this exam. Comparison: Comparison is made to CT chest 01/31/2015 FINDINGS: Lungs and pleura: Multifocal airspace opacities are seen. Heart and pericardium: Heart size is normal. No pericardial effusion. Vessels: Moderate atherosclerotic changes in the aorta and coronary arteries. Mediastinum and melissa: Subcentimeter lymph nodes are seen. Chest wall and lower neck: Unremarkable. Abdomen: Lipid rich adrenal adenoma is seen on the left. Bones: Degenerative changes in the thoracic spine. IMPRESSION: Multifocal airspace opacities are seen compatible with recent Covid pneumonia. ACT 112: Negative or not required by law. Electronically signed by: Gustavo Gaines M.D. 07/22/2021 11:06 PM
[2021-07-22] MEDS ORDERED: INSULIN DETEMIR FLEXPEN/FLEX TOUCH 100 UNITS/ML 3ML SQ SCH (23:45)
[2021-07-22] MEDS ORDERED: GLUCOSE 10 TABS/TUBE PO PRN (23:45)
[2021-07-22] MEDS ORDERED: DEXTROSE 50% 50 ML SYRINGE IV PRN (23:45)
[2021-07-22] MEDS ORDERED: ALBUTEROL HFA 8 GM INHALER INH PRN (23:45)
[2021-07-22] MEDS ORDERED: GLUCOSE 40% GEL 15 GM TUBE PO PRN (23:45)
[2021-07-22] MEDS ORDERED: GLUCAGON FOR INJ 1 MG VIAL SQ PRN (23:45)
[2021-07-22] MEDS ORDERED: CARBOHYDRATES FOR HYPOGLYCEMIA PO PRN (23:45)
[2021-07-23] MEDS: LACTATED RINGER'S 1,000 ML IV SCH ×2 (00:40→08:03)
[2021-07-23] MEDS: DONEPEZIL HCL 5 MG TAB PO SCH ×2 (00:41→21:11)
[2021-07-23] MEDS: VENLAFAXINE HCL XR 150 MG CAPXR PO SCH ×3 (00:41→21:13)
[2021-07-23] MEDS: ROSUVASTATIN CALCIUM 20 MG TAB PO SCH ×2 (00:41→21:12)
[2021-07-23] MEDS: APIXABAN 5 MG TABLET PO SCH ×3 (00:41→21:12)
[2021-07-23] MEDS: GABAPENTIN 600 MG TAB PO SCH ×3 (00:41→21:12)
[2021-07-23] MEDS: INSULIN DETEMIR FLEXPEN/FLEX TOUCH 100 UNITS/ML 3ML SQ SCH ×3 (00:43→21:09)
[2021-07-23] MEDS: INSULIN ASPART PER UNIT SC SCH ×5 (00:50→21:08)
[2021-07-23] MEDS: LEVOTHYROXINE SODIUM 75 MCG TABLET PO SCH (06:07)
[2021-07-23] MEDS: ASPIRIN 81 MG CHEW PO SCH (08:01)
[2021-07-23] MEDS: CLOPIDOGREL BISULFATE 75 MG TAB PO SCH (08:01)
[2021-07-23] MEDS: OXYBUTYNIN CHLORIDE XL 5 MG TABCR PO SCH (08:01)
[2021-07-23] MEDS: PANTOprazole 40 MG TAB PO SCH (08:02)
[2021-07-23] MEDS: CETIRIZINE HCL 10 MG TABLET PO SCH (08:02)
[2021-07-23] MEDS: ANASTROZOLE 1 MG TAB PO SCH (08:02)
[2021-07-23] MEDS ORDERED: ANASTROZOLE 1 MG TAB PO SCH (09:00)
[2021-07-23] MEDS ORDERED: AZITHROMYCIN 250 MG TAB PO SCH (09:00)
[2021-07-23] MEDS ORDERED: INSULIN DETEMIR FLEXPEN/FLEX TOUCH 100 UNITS/ML 3ML SQ SCH (09:00)
[2021-07-23 11:43] LABS: Basophils # (auto) 0.02 K/uL (0-0.2); Basophils % (auto) 0.2 %; Eosinophils # (auto) 0.39 K/uL (0-0.5); Eosinophils % (auto) 3.8 %; Hematocrit (blood only) 41.7 % (37-47); Hemoglobin 12.9 g/dL (12.0-16.0); Immature Granulocytes # (auto) 0.02 K/uL (0.00-0.02); Immature Granulocytes % (auto) 0.2 %; Lymphocytes # (auto) 1.47 K/uL (1.2-3.4); Lymphocytes % (auto) 14.1 %; Mean Corpuscular Hemoglobin 28.3 pg (25-34); Mean Corpuscular Hgb Conc 30.9 g/dL (32-36); Mean Corpuscular Volume 91.4 fL (80-100); Monocytes # (auto) 0.93 K/uL (0.11-0.59); Neutrophils # (auto) 7.56 K/uL (1.4-6.5); Neutrophils % (auto) 72.7 %; Platelet Count 442 K/uL (130-400); RDW Coefficient of Variation 14.9 % (11.5-14.5); RDW Standard Deviation 50.4 fL (36.4-46.3); Red Blood Count 4.56 M/uL (4.2-5.4); White Blood Count 10.39 K/uL (4.8-10.8)
[2021-07-23 12:01] LABS: Calcium 9.4 mg/dl (8.5-10.1); Creatinine Clr Calc Pharmacy 37.4 ml/min; Est GFR (African American) 53.7 ml/min; Est GFR (Non-African American) 46.4 ml/min; Magnesium 1.9 mg/dl (1.7-2.4); Potassium 3.9 mmol/L (3.5-5.1)
[2021-07-23] MEDS ORDERED: ALBUTEROL 0.083% NEBU SOLN 3 ML VIAL NEB PRN (12:11)
[2021-07-23] MEDS ORDERED: levoFLOXacin/D5W 750 MG/150 ML BAG IV SCH (12:15)
[2021-07-23] MEDS ORDERED: BENZONATATE 100 MG CAPSULE PO PRN (12:19)
[2021-07-23] MEDS ORDERED: methylPREDNISolone 125 MG in SYRINGE 0 ML IV STA (12:46)
[2021-07-23] MEDS: ALBUT/IPRATROP 3MG/0.5MG NEB 3 ML VIAL NEB SCH ×2 (15:06→19:15)
--- NOTE | 2021-07-23 17:20 | Hospitalist Progress Note ---
Date of Service July 23, 2021 Assessment & Plan (1) Acute exacerbation of chronic obstructive pulmonary disease (COPD): Plan: 80-year-old white female with an underlying past medical history of paroxysmal atrial fibrillation, PA, CKD, and COPD recently hospitalized at [facility] (06/18 through 06/29 for Covid). Was discharged without the need for suppl emental oxygen. * Presented with mild hypoxemia of 88% and progressive weakness and shortness of breath * CT of the chest shows multifocal disease but improving infiltrates compared to prior CT scan done 06/30 * Likely with COPD exacerbation from recent Covid infection * With review of old records, patient completed a full course of antibiotics and I do not believe that antibiotics are warranted at this time (procalcitonin negative, no leukocytosis) * Add IV steroids, aggressive pulmonary toilette, mucolytic agents and antitussives * Continue supplemental oxygen to maintain a pulse ox of 92% * Takes no controlling medications for this. Would be inclined to initiate upon discharge (utilizing Pulmicort/Perforomist via nebulizer while in house) (2) History of COVID-19: Plan: * Hospitalized 06/18 through 06/29 at [facility] * Likely contributing to #1 and her generalized weakness (3) Atrial fib/flutter, transient: Plan: * Currently in a sinus rhythm with controlled rate * Continue Eliquis * No rate controlling medications on board (4) Chronic kidney disease, stage 3: Plan: * Creatinine stable at 1.13 * Renally adjust medications when appropriate (5) Diabetes mellitus type 2, uncontrolled: Plan: * Patient on Levemir 40 units twice daily at home. This has been continued but at a reduced dose given her hospital stay. May need to uptitrate with the addition of steroids * Continue analog for sliding scale and correction dose coverage (6) Hypothyroidism: Plan: * Continue Synthroid Plan: Plan of care discussed with Dr. Punete Admission and Anticipated Discharge Date Admission Date: July 22, 2021 Subjective Patient seen on daily rounds today. Hospitalized with ongoing weakness, loss of appetite, and progressive shortness of breath following recent hospital stay for Covid. Hospitalized 06/18 through 06/28 at [facility]. It was recommended that she be discharged to rehab; however, family and patient refused. Seen in our emergency department on 06/30 with diarrhea and weakness. CT showed multifocal disease consistent with recent Covid illness. Subsequently discharged to home. Follow-up CT done during this hospitalization shows shows continued improved multifocal infiltrates. Review of Systems Review of Systems: All systems reviewed and are unremarkable except as noted in HPI and below Denies fevers, chills, headache, nasal congestion, sore throat, cough, chest pain, palpitations, orthopnea, PND, abdominal pain, nausea, vomiting, diarrhea, constipation, dysuria, hematuria, frequency, back pain, joint pain or swelling, easy bruising or bleeding, skin lesions or rashes. Physical Exam Physical Exam: General: Resting comfortably in her bedside chair. NAD. HEENT: Head is AT/NC. Buccal mucosa is moist and pink Neck: No JVD. Negative hepatojugular reflex Cardiac: RRR with 1/6 SALVADOR Lungs: Breathing comfortably on supplemental oxygen. Normal respiratory effort. Significantly diminished breath sounds throughout with bibasilar mid to end expiratory wheezes Abdomen: Normoactive X4. Soft and nontender in all quadrants. Extremities: No peripheral clubbing cyanosis or edema Neuro: A&O X4. Cranial nerves II through XII are grossly intact. No focal neuro deficits Skin: No obvious skin lesions or rashes Psych: Appropriate affect. Pleasant and cooperative Results & Data Results & Data ([facility]) Vital Signs (Past 12 Hours) Vital Signs Temp Pulse Resp BP Pulse Ox 07/23/21 15:46 95 07/23/21 15:33 36.9 C 93 H 22 148/83 H 95 07/23/21 15:08 85 18 96 07/23/21 07:26 36.7 C 87 16 116/63 97 Laboratory Results 07/23/21 11:16 07/23/21 11:16 PG Care Time/CCT Total # of Minutes Spent Total Time Spent with Patient: Total time spent is greater than 50% in coordination of care (as documented) at patient's floor/unit and/or counseling patient: Coding Level of Care Code 86708 Subseq Hosp Care Lvl 3 Diagnoses Acute exacerbation of chronic obstructive pulmonary disease (COPD) J44.1 History of COVID-19 Z86.16 Atrial fib/flutter, transient Chronic kidney disease, stage 3 N18.32 Chronic kidney disease stage 3 subtype: stage 3b (GFR 30-44) Diabetes mellitus type 2, uncontrolled E11.65 Coma presence: without coma Hypothyroidism E03.9 Hypothyroidism type: unspecified (1) Chronic kidney disease, stage 3 Chronic kidney disease stage 3 subtype: stage 3b (GFR 30-44) Qualified Code(s): N18.32 - Chronic kidney disease, stage 3b (2) Diabetes mellitus type 2, uncontrolled Coma presence: without coma (3) Hypothyroidism Hypothyroidism type: unspecified Qualified Code(s): E03.9 - Hypothyroidism, unspecified
[2021-07-23] MEDS: FORMOTEROL 20 MCG/2 ML VIAL NEB SCH (19:13)
[2021-07-23] MEDS: BUDESONIDE 0.5 MG/2 ML VIAL (PULMICORT) NEB SCH (19:13)
[2021-07-23] MEDS: guaiFENesin 600 MG TABCR PO SCH (21:11)
[2021-07-23] MEDS: methylPREDNISolone 60 MG in SYRINGE 0 ML IV SCH (21:13)
[2021-07-24] MEDS: LEVOTHYROXINE SODIUM 75 MCG TABLET PO SCH (05:21)
[2021-07-24] MEDS: BUDESONIDE 0.5 MG/2 ML VIAL (PULMICORT) NEB SCH ×2 (07:22→19:43)
[2021-07-24] MEDS: FORMOTEROL 20 MCG/2 ML VIAL NEB SCH ×2 (07:22→19:43)
[2021-07-24] MEDS: ALBUT/IPRATROP 3MG/0.5MG NEB 3 ML VIAL NEB SCH (07:24)
[2021-07-24 07:54] LABS: Hematocrit (blood only) 38.8 % (37-47); Hemoglobin 12.3 g/dL (12.0-16.0); Immature Granulocytes # (auto) 0.02 K/uL (0.00-0.02); Immature Granulocytes % (auto) 0.1 %; Lymphocytes # (auto) 1.17 K/uL (1.2-3.4); Lymphocytes % (auto) 8.2 %; Mean Corpuscular Hemoglobin 28.6 pg (25-34); Mean Corpuscular Hgb Conc 31.7 g/dL (32-36); Mean Corpuscular Volume 90.2 fL (80-100); Mean Platelet Volume 11.1 fL (7.4-10.4); Monocytes # (auto) 0.22 K/uL (0.11-0.59); Monocytes % (auto) 1.5 %; Neutrophils % (auto) 90.2 %; Platelet Count 410 K/uL (130-400); RDW Coefficient of Variation 14.4 % (11.5-14.5); RDW Standard Deviation 47.2 fL (36.4-46.3); White Blood Count 14.31 K/uL (4.8-10.8)
[2021-07-24] MEDS: ASPIRIN 81 MG CHEW PO SCH (08:01)
[2021-07-24] MEDS: PANTOprazole 40 MG TAB PO SCH (08:01)
[2021-07-24] MEDS: ANASTROZOLE 1 MG TAB PO SCH (08:02)
[2021-07-24] MEDS: GABAPENTIN 600 MG TAB PO SCH ×2 (08:02→21:08)
[2021-07-24] MEDS: OXYBUTYNIN CHLORIDE XL 5 MG TABCR PO SCH (08:02)
[2021-07-24] MEDS: CETIRIZINE HCL 10 MG TABLET PO SCH (08:02)
[2021-07-24] MEDS: APIXABAN 5 MG TABLET PO SCH ×2 (08:02→21:49)
[2021-07-24] MEDS: CLOPIDOGREL BISULFATE 75 MG TAB PO SCH (08:02)
[2021-07-24] MEDS: VENLAFAXINE HCL XR 150 MG CAPXR PO SCH ×2 (08:02→21:09)
[2021-07-24] MEDS: guaiFENesin 600 MG TABCR PO SCH ×2 (08:03→21:08)
[2021-07-24] MEDS: methylPREDNISolone 60 MG in SYRINGE 0 ML IV SCH ×2 (08:03→21:10)
[2021-07-24] MEDS: INSULIN DETEMIR FLEXPEN/FLEX TOUCH 100 UNITS/ML 3ML SQ SCH ×2 (08:21→21:30)
[2021-07-24] MEDS: INSULIN ASPART PER UNIT SC SCH ×4 (08:22→21:30)
[2021-07-24 08:26] LABS: BUN Creatinine Ratio 21.1 (10-20); Calcium 9.1 mg/dl (8.5-10.1); Creatinine Clr Calc Pharmacy 36.7 ml/min; Est GFR (African American) 52.6 ml/min; Est GFR (Non-African American) 45.4 ml/min; Magnesium 1.8 mg/dl (1.7-2.4); Potassium 4.5 mmol/L (3.5-5.1)
[2021-07-24] MEDS ORDERED: ALBUT/IPRATROP 3MG/0.5MG NEB 3 ML VIAL NEB PRN (10:11)
[2021-07-24] MEDS: INSULIN HUMAN NPH SC SCH ×2 (11:12→17:34)
--- NOTE | 2021-07-24 15:07 | Hospitalist Progress Note ---
Date of Service July 24, 2021 Assessment & Plan (1) Acute exacerbation of chronic obstructive pulmonary disease (COPD): Plan: 80-year-old white female with an underlying past medical history of paroxysmal atrial fibrillation, PA, CKD, and COPD recently hospitalized at [facility] (06/18 through 06/29 for Covid). Was discharged without the need for suppl emental oxygen. * Presented with mild hypoxemia of 88% and progressive weakness and shortness of breath * CT of the chest shows multifocal disease but improving infiltrates compared to prior CT scan done 06/30 * Likely with COPD exacerbation from recent Covid infection * With review of old records, patient completed a full course of antibiotics and I do not believe that antibiotics are warranted at this time (procalcitonin negative, no leukocytosis) * Continue IV steroids, aggressive pulmonary toilet, mucolytic agents and antitussives * Continue supplemental oxygen to maintain a pulse ox of 92%--currently on room air but did desaturate to 79% when sleeping. Will order an overnight pulse oximeter as may have underlying lung damage from recent Covid * Takes no controlling medications for this. Would be inclined to initiate upon discharge (utilizing Pulmicort/Perforomist via nebulizer while in house) (2) History of COVID-19: Plan: * Hospitalized 06/18 through 06/29 at [facility] * Likely contributing to #1 and her generalized weakness (3) Atrial fib/flutter, transient: Plan: * Currently in a sinus rhythm with controlled rate * Continue Eliquis * No rate controlling medications on board (4) Chronic kidney disease, stage 3: Plan: * Creatinine stable at 1.13 * Renally adjust medications when appropriate (5) Diabetes mellitus type 2, uncontrolled: Plan: * Patient on Levemir 40 units twice daily at home. This was continued but at a reduced dose given her hospital stay. * now with steroid induced hyperglycemic * increase levemir back to 40U, continue analog and add NPH with steroid to help combat the steroid-induced hyperglycemia * Update A1c. As of 01/20 was 10.6% (6) Hypothyroidism: Plan: * Continue Synthroid Plan: Plan of care to be discussed with Dr. Puente Admission and Anticipated Discharge Date Admission Date: July 22, 2021 Subjective Patient seen on daily rounds today. Reports that her breathing feels slightly different today. Unable to exactly explain what this means. Not requiring supplemental oxygen this morning. Did desaturate to 79% when sleeping requiring 2 L. Otherwise, she denies fevers, chills, chest pain, shortness of breath, orthopnea, PND, abdominal pain, nausea or vomiting. Blood sugars uptrending with the addition of steroids Otherwise nursing voices no complaints or concerns. Review of Systems Review of Systems: All systems reviewed and are unremarkable except as noted in HPI and below Denies fevers, chills, headache, nasal congestion, sore throat, cough, chest pain, palpitations, orthopnea, PND, abdominal pain, nausea, vomiting, diarrhea, constipation, dysuria, hematuria, frequency, back pain, joint pain or swelling, easy bruising or bleeding, skin lesions or rashes. Physical Exam Physical Exam: General: Resting comfortably in her bedside chair. NAD. HEENT: Head is AT/NC. Buccal mucosa is moist and pink Neck: No JVD. Negative hepatojugular reflex Cardiac: RRR with 1/6 SALVADOR Lungs: Breathing comfortably on ambient air. Normal respiratory effort. Significantly improved air exchange throughout without wheezes, rales or rhonchi today Abdomen: Normoactive X4. Soft and nontender in all quadrants. Extremities: No peripheral clubbing cyanosis or edema Neuro: A&O X4. Cranial nerves II through XII are grossly intact. No focal neuro deficits Skin: No obvious skin lesions or rashes Psych: Appropriate affect. Pleasant and cooperative Results & Data Results & Data ([facility]) Vital Signs (Past 12 Hours) Vital Signs Temp Pulse Resp BP Pulse Ox 07/24/21 07:24 92 H 18 79 L 07/24/21 07:00 36.7 C 102 H 18 132/78 92 Laboratory Results 07/24/21 07:26 07/24/21 07:26 PG Care Time/CCT Total # of Minutes Spent Total Time Spent with Patient: Total time spent is greater than 50% in coordination of care (as documented) at patient's floor/unit and/or counseling patient: Coding Level of Care Code 30479 Subseq Hosp Care Lvl 2 Diagnoses Acute exacerbation of chronic obstructive pulmonary disease (COPD) J44.1 History of COVID-19 Z86.16 Atrial fib/flutter, transient Chronic kidney disease, stage 3 N18.32 Chronic kidney disease stage 3 subtype: stage 3b (GFR 30-44) Diabetes mellitus type 2, uncontrolled E11.65 Coma presence: without coma Hypothyroidism E03.9 Hypothyroidism type: unspecified (1) Chronic kidney disease, stage 3 Chronic kidney disease stage 3 subtype: stage 3b (GFR 30-44) Qualified Code(s): N18.32 - Chronic kidney disease, stage 3b (2) Diabetes mellitus type 2, uncontrolled Coma presence: without coma (3) Hypothyroidism Hypothyroidism type: unspecified Qualified Code(s): E03.9 - Hypothyroidism, unspecified
[2021-07-24] MEDS: ROSUVASTATIN CALCIUM 20 MG TAB PO SCH (21:08)
[2021-07-24] MEDS: DONEPEZIL HCL 5 MG TAB PO SCH (21:10)
[2021-07-25] MEDS: LEVOTHYROXINE SODIUM 75 MCG TABLET PO SCH (05:58)
[2021-07-25 06:10] LABS: Basophils # (auto) 0.01 K/uL (0-0.2); Basophils % (auto) 0.1 %; Hematocrit (blood only) 38.5 % (37-47); Hemoglobin 11.9 g/dL (12.0-16.0); Immature Granulocytes # (auto) 0.05 K/uL (0.00-0.02); Immature Granulocytes % (auto) 0.3 %; Lymphocytes # (auto) 1.18 K/uL (1.2-3.4); Mean Corpuscular Hemoglobin 28.1 pg (25-34); Mean Corpuscular Hgb Conc 30.9 g/dL (32-36); Mean Platelet Volume 11.5 fL (7.4-10.4); Neutrophils # (auto) 18.14 K/uL (1.4-6.5); Neutrophils % (auto) 91.6 %; Platelet Count 431 K/uL (130-400); RDW Coefficient of Variation 14.4 % (11.5-14.5); RDW Standard Deviation 47.7 fL (36.4-46.3); Red Blood Count 4.23 M/uL (4.2-5.4); White Blood Count 19.78 K/uL (4.8-10.8)
[2021-07-25 06:56] LABS: Calcium 9.2 mg/dl (8.5-10.1); Creatinine Clr Calc Pharmacy 30.5 ml/min; Est GFR (African American) 42.6 ml/min; Est GFR (Non-African American) 36.7 ml/min; Magnesium 1.9 mg/dl (1.7-2.4); Potassium 4.3 mmol/L (3.5-5.1)
[2021-07-25] MEDS: FORMOTEROL 20 MCG/2 ML VIAL NEB SCH ×2 (07:37→20:24)
[2021-07-25] MEDS: BUDESONIDE 0.5 MG/2 ML VIAL (PULMICORT) NEB SCH ×2 (07:37→20:24)
[2021-07-25 07:49] LABS: Estimated Average Glucose 160 mg/dl; Hemoglobin A1C 7.2 % (4.5-5.6)
[2021-07-25] MEDS: INSULIN ASPART PER UNIT SC SCH ×6 (09:15→23:50)
[2021-07-25] MEDS: INSULIN HUMAN NPH SC SCH (09:15)
[2021-07-25] MEDS: VENLAFAXINE HCL XR 150 MG CAPXR PO SCH ×2 (09:16→20:48)
[2021-07-25] MEDS: GABAPENTIN 600 MG TAB PO SCH ×2 (09:16→20:48)
[2021-07-25] MEDS: guaiFENesin 600 MG TABCR PO SCH ×2 (09:16→20:48)
[2021-07-25] MEDS: PANTOprazole 40 MG TAB PO SCH (09:16)
[2021-07-25] MEDS: OXYBUTYNIN CHLORIDE XL 5 MG TABCR PO SCH (09:16)
[2021-07-25] MEDS: methylPREDNISolone 60 MG in SYRINGE 0 ML IV SCH (09:16)
[2021-07-25] MEDS: ANASTROZOLE 1 MG TAB PO SCH (09:17)
[2021-07-25] MEDS: ASPIRIN 81 MG CHEW PO SCH (09:17)
[2021-07-25] MEDS: INSULIN DETEMIR FLEXPEN/FLEX TOUCH 100 UNITS/ML 3ML SQ SCH ×2 (09:17→20:46)
[2021-07-25] MEDS: CETIRIZINE HCL 10 MG TABLET PO SCH (09:17)
[2021-07-25] MEDS: APIXABAN 5 MG TABLET PO SCH ×2 (09:17→20:47)
[2021-07-25] MEDS: CLOPIDOGREL BISULFATE 75 MG TAB PO SCH (09:17)
[2021-07-25] MEDS ORDERED: LACTATED RINGER'S 1,000 ML IV SCH (10:30)
[2021-07-25] MEDS ORDERED: PHARMACY GLYCEMIC MGMT CONSULT PRN (12:58)
[2021-07-25] MEDS ORDERED: INSULIN HUMAN REGULAR PER UNIT 5 UNITS in SYRINGE 4.95 ML IV ONE (13:30)
--- NOTE | 2021-07-25 15:06 | Pharmacy Report ---
Pharmacy Glycemic Short Note 2 - Date of Service July 25, 2021 - Glycemic Short BSG Results (Last 24 hours): 07/24/21 07/24/21 07/25/21 17:02 21:10 05:40 Glucose 274 H POC Glucose 225 H 184 H 07/25/21 07/25/21 07/25/21 08:18 11:54 11:55 Glucose POC Glucose 277 H 446 H* 430 H* 07/25/21 11:57 Glucose POC Glucose 472 H* OUTPATIENT ANTIDIABETIC REGIMEN: * Levemir 40 units SQ BID * Novolog 20 units SQ AC * HbA1c = 7.2% (07/24/21) ASSESSMENT: * 81 yo F admitted on 07/22/21 secondary to COPD exacerbation. BSGs have been significantly elevated due to IV steroid administration. Pharmacy was consulted this afternoon to assist with inpatient glycemic management. * Steroids have been switched to Prednisone 40 mg PO daily starting tomorrow (07/26). Patient is ordered a type 2 diet. * Fasting BSG today was 277 mg/dL followed by 472 mg/dL at lunch. * Will continue targeting a goal BSG of 110-140 mg/dL * Will continue Lantus 40 units SQ BID as previously ordered * Will tighten Novolog at dinner. * Will give a 5 units regular insulin bolus IV now x 1 for BSG of 427 mg/dL * Increasing NPH dose tomorrow morning to cover prednisone PLAN FOR INPATIENT GLYCEMIC CONTROL: * Basal insulin * Lantus 40 units SQ BID * NPH 15 units SQ daily (give with prednisone - hold if prednisone held or discontinued) * Bolus insulin * NovoLog per scale ACHS or Q6hrs while NPO * Goal Range: Low 110 mg/dL - High 140 mg/dL * Correction Factor: 15 mg/dL/unit * Nutritional / Prandial insulin per carb ratio of 1 unit per 5 grams CHO consumed PLAN FOR DISCHARGE: * HbA1c of 7.2% is at goal for this patient. * Recommend continuing outpatient regimen upon discharge as long as patient is n ot experiencing hypoglycemia at home. * If steroids continued upon discharge, may need increased insulin doses.
--- NOTE | 2021-07-25 16:57 | Hospitalist Progress Note ---
Date of Service July 25, 2021 Assessment & Plan (1) Acute exacerbation of chronic obstructive pulmonary disease (COPD): Plan: 80-year-old white female with an underlying past medical history of paroxysmal atrial fibrillation, PA, CKD, and COPD recently hospitalized at [facility] (06/18 through 06/29 for Covid). Was discharged without the need for suppl emental oxygen. * Presented with mild hypoxemia of 88% and progressive weakness and shortness of breath * CT of the chest shows multifocal disease but improving infiltrates compared to prior CT scan done 06/30 * Likely with COPD exacerbation from recent Covid infection * With review of old records, patient completed a full course of antibiotics and I do not believe that antibiotics are warranted at this time (procalcitonin negative, no leukocytosis) * Treated with IV steroids, aggressive pulmonary toilet, antitussives and mucolytic agents --no controlling medications on board. Currently on Pulmicort/Perforomist. Plan to transition this to Symbicort or Advair (likely tomorrow) * Patient showing favorable response. Transition IV to p.o. prednisone with down taper * No longer requiring supplemental oxygen. Overnight pulse ox done last evening with pulse ox of 92% on room air * At this point, is medically and hemodynamically stable for discharge; however, given associated weakness plan is for rehab (2) History of COVID-19: Plan: * Hospitalized 06/18 through 06/29 at [facility] * Likely contributing to #1 and her generalized weakness (3) Debility: Plan: * Patient with recent hospitalization. Therapy at the time is recommending rehab but patient refused. * Debility likely due to recent Covid illness and [id number] hospitalizations * PT/OT has evaluated the patient and is recommending rehab. Patient reluctant but now agreeable. Case management on board (4) Atrial fib/flutter, transient: Plan: * Currently in a sinus rhythm with controlled rate * Continue Eliquis * No rate controlling medications on board (5) Chronic kidney disease, stage 3: Plan: * Creatinine slightly elevated at 1.3 but at her baseline * Renally adjust medications when appropriate (6) Diabetes mellitus type 2, uncontrolled: Plan: * on levemir, analong (with correction dosing and carb counting) along with NPH given IV steroids on board (which have since been stopped) * still with BS in the 400's-- suspect steroid induced as A1C acceptable and at goal (7.2%) * consult pharmacy for glycemic mgmt-- appreciate assistance (7) Hypothyroidism: Plan: * Continue Synthroid Plan: Plan of care to be discussed with Dr. Puente PT/OT recommending rehab. PAtient now agreeable. CM on board. Patient Medically and hemodynamically stable for D/C when bed available Admission and Anticipated Discharge Date Admission Date: July 22, 2021 Subjective Patient seen on daily rounds today. Vocalizes no significant complaints or concerns. Reports that her breathing is improved. Denies fevers, chills, chest pain, shortness of breath, orthopnea, PND, abdominal pain, nausea or vomiting. Overnight pulse ox done given hypoxemia noted the night prior. Pulse ox remained 92% on room air. Blood sugars remain significantly elevated despite Lantus, NPH, and analog coverage on board. Review of Systems Review of Systems: All systems reviewed and are unremarkable except as noted in HPI and below Denies fevers, chills, headache, nasal congestion, sore throat, cough, chest pain, shortness of breath, palpitations, orthopnea, PND, abdominal pain, nausea, vomiting, diarrhea, constipation, dysuria, hematuria, frequency, back pain, joint pain or swelling, easy bruising or bleeding, skin lesions or rashes. Physical Exam Physical Exam: General: Resting comfortably in her bedside chair. NAD. HEENT: Head is AT/NC. Buccal mucosa is moist and pink Neck: No JVD. Negative hepatojugular reflex Cardiac: RRR with 1/6 SALVADOR Lungs: Breathing comfortably on ambient air. Normal respiratory effort. Significantly improved air exchange throughout without wheezes, rales or rhonchi today Abdomen: Normoactive X4. Soft and nontender in all quadrants. Extremities: No peripheral clubbing cyanosis or edema Neuro: A&O X4. Cranial nerves II through XII are grossly intact. No focal neuro deficits Skin: No obvious skin lesions or rashes Psych: Appropriate affect. Pleasant and cooperative Results & Data Results & Data ([facility]) Vital Signs (Past 12 Hours) Vital Signs Temp Pulse Resp BP Pulse Ox 07/25/21 15:36 36.5 C 95 H 18 127/70 94 07/25/21 08:58 36.7 C 94 H 18 122/69 94 07/25/21 07:38 92 H 18 92 Laboratory Results 07/25/21 05:40 07/25/21 05:40 PG Care Time/CCT Total # of Minutes Spent Total Time Spent with Patient: Total time spent is greater than 50% in coordination of care (as documented) at patient's floor/unit and/or counseling patient: Coding Level of Care Code 15352 Subseq Hosp Care Lvl 2 Diagnoses Acute exacerbation of chronic obstructive pulmonary disease (COPD) J44.1 History of COVID-19 Z86.16 Atrial fib/flutter, transient Chronic kidney disease, stage 3 N18.32 Chronic kidney disease stage 3 subtype: stage 3b (GFR 30-44) Diabetes mellitus type 2, uncontrolled E11.65 Coma presence: without coma Hypothyroidism E03.9 Hypothyroidism type: unspecified Debility R53.81 (1) Chronic kidney disease, stage 3 Chronic kidney disease stage 3 subtype: stage 3b (GFR 30-44) Qualified Code(s): N18.32 - Chronic kidney disease, stage 3b (2) Diabetes mellitus type 2, uncontrolled Coma presence: without coma (3) Hypothyroidism Hypothyroidism type: unspecified Qualified Code(s): E03.9 - Hypothyroidism, unspecified
[2021-07-25] MEDS: DONEPEZIL HCL 5 MG TAB PO SCH (20:47)
[2021-07-25] MEDS: ROSUVASTATIN CALCIUM 20 MG TAB PO SCH (20:48)
[2021-07-26] MEDS: INSULIN ASPART PER UNIT SC SCH ×5 (04:06→21:56)
[2021-07-26] MEDS: LEVOTHYROXINE SODIUM 75 MCG TABLET PO SCH (04:13)
[2021-07-26 06:46] LABS: Hematocrit (blood only) 37.9 % (37-47); Immature Granulocytes # (auto) 0.08 K/uL (0.00-0.02); Immature Granulocytes % (auto) 0.4 %; Lymphocytes # (auto) 1.73 K/uL (1.2-3.4); Lymphocytes % (auto) 9.1 %; Mean Corpuscular Hemoglobin 28.6 pg (25-34); Mean Corpuscular Hgb Conc 31.7 g/dL (32-36); Mean Corpuscular Volume 90.5 fL (80-100); Mean Platelet Volume 11.4 fL (7.4-10.4); Monocytes # (auto) 1.03 K/uL (0.11-0.59); Monocytes % (auto) 5.4 %; Neutrophils # (auto) 16.12 K/uL (1.4-6.5); Neutrophils % (auto) 85.1 %; Platelet Count 448 K/uL (130-400); RDW Coefficient of Variation 14.5 % (11.5-14.5); RDW Standard Deviation 48.1 fL (36.4-46.3); Red Blood Count 4.19 M/uL (4.2-5.4); White Blood Count 18.96 K/uL (4.8-10.8)
[2021-07-26 07:02] LABS: BUN Creatinine Ratio 29.9 (10-20); Creatinine Clr Calc Pharmacy 30.1 ml/min; Est GFR (African American) 41.8 ml/min; Est GFR (Non-African American) 36.1 ml/min; Potassium 4.1 mmol/L (3.5-5.1)
[2021-07-26] MEDS: FORMOTEROL 20 MCG/2 ML VIAL NEB SCH (07:36)
[2021-07-26] MEDS: BUDESONIDE 0.5 MG/2 ML VIAL (PULMICORT) NEB SCH (07:36)
[2021-07-26] MEDS: PANTOprazole 40 MG TAB PO SCH (08:06)
[2021-07-26] MEDS: OXYBUTYNIN CHLORIDE XL 5 MG TABCR PO SCH (08:06)
[2021-07-26] MEDS: APIXABAN 5 MG TABLET PO SCH ×2 (08:07→20:20)
[2021-07-26] MEDS: guaiFENesin 600 MG TABCR PO SCH ×2 (08:07→20:19)
[2021-07-26] MEDS: predniSONE 20 MG TAB PO SCH (08:07)
[2021-07-26] MEDS: VENLAFAXINE HCL XR 150 MG CAPXR PO SCH ×2 (08:07→20:19)
[2021-07-26] MEDS: CETIRIZINE HCL 10 MG TABLET PO SCH (08:08)
[2021-07-26] MEDS: ASPIRIN 81 MG CHEW PO SCH (08:08)
[2021-07-26] MEDS: GABAPENTIN 600 MG TAB PO SCH ×2 (08:08→20:20)
[2021-07-26] MEDS: CLOPIDOGREL BISULFATE 75 MG TAB PO SCH (08:08)
[2021-07-26] MEDS: ANASTROZOLE 1 MG TAB PO SCH (08:08)
[2021-07-26] MEDS: INSULIN DETEMIR FLEXPEN/FLEX TOUCH 100 UNITS/ML 3ML SQ SCH ×2 (08:58→21:57)
[2021-07-26] MEDS ORDERED: INSULIN HUMAN NPH SC SCH (09:00)
--- NOTE | 2021-07-26 10:09 | Pharmacy Report ---
Pharmacy Glycemic Short Note 2 - Date of Service July 26, 2021 - Glycemic Short BSG Results (Last 24 hours): 07/25/21 07/25/21 07/25/21 11:54 11:55 11:57 Glucose POC Glucose 446 H* 430 H* 472 H* 07/25/21 07/25/21 07/25/21 17:27 20:41 23:45 Glucose POC Glucose 281 H 215 H 193 H 07/26/21 07/26/21 07/26/21 04:01 06:09 08:07 Glucose 151 H POC Glucose 183 H 142 H OUTPATIENT ANTIDIABETIC REGIMEN: * Levemir 40 units SQ BID * Novolog 20 units SQ AC * HbA1c = 7.2% (07/24/21) ASSESSMENT: 07/26: * Sharon received a total of 166 units of insulin yesterday (90 units basal + 7 6 units bolus). * BSGs were 157-266-676-215 mg/dL. Two overnight checks were 193-183 mg/dL. * Fasting BSG improved to 142 mg/dL this AM. * Expect patient's insulin requirements to decrease given decrease in steroid dose. Continues on Prednisone 40 mg daily. * No change to NPH - continue to cover steroid induced hyperglycemia. * Basal insulin requires no adjustment * Lunch BSG was 342-299 mg/dL * Tightened carb ratio 07/25: * 81 yo F admitted on 07/22/21 secondary to COPD exacerbation. BSGs have been significantly elevated due to IV steroid administration. Pharmacy was co nsulted this afternoon to assist with inpatient glycemic management. * Steroids have been switched to Prednisone 40 mg PO daily starting tomorrow (07/26). Patient is ordered a type 2 diet. * Fasting BSG today was 277 mg/dL followed by 472 mg/dL at lunch. * Will continue targeting a goal BSG of 110-140 mg/dL * Will continue Lantus 40 units SQ BID as previously ordered * Will tighten Novolog at dinner. * Will give a 5 units regular insulin bolus IV now x 1 for BSG of 427 mg/dL * Increasing NPH dose tomorrow morning to cover prednisone PLAN FOR INPATIENT GLYCEMIC CONTROL: * Basal insulin * Lantus 40 units SQ BID * NPH 15 units SQ daily (give with prednisone - hold if prednisone held or discontinued) * Bolus insulin - tightened CR * NovoLog per scale ACHS or Q6hrs while NPO * Goal Range: Low 110 mg/dL - High 140 mg/dL * Correction Factor: 15 mg/dL/unit * Nutritional / Prandial insulin per carb ratio of 1 unit per 4 grams CHO consumed PLAN FOR DISCHARGE: * HbA1c of 7.2% is at goal for this patient. * Recommend continuing outpatient regimen upon discharge as long as patient is not experiencing hypoglycemia at home. * If steroids continued upon discharge, may need increased insulin doses.
[2021-07-26] MEDS ORDERED: SODIUM CHLORIDE 0.9% 1000ML 1,000 ML IV SCH (10:30)
--- NOTE | 2021-07-26 10:34 | Hospitalist Progress Note ---
Date of Service July 26, 2021 Assessment & Plan (1) Acute exacerbation of chronic obstructive pulmonary disease (COPD): Plan: 80-year-old white female with an underlying past medical history of paroxysmal atrial fibrillation, PA, CKD, and COPD recently hospitalized at [facility] (06/18 through 06/29 for Covid). Was discharged without the need for supplemental oxygen. * Presented with mild hypoxemia of 88% and progressive weakness and shortness of breath * CT of the chest showing multifocal disease but improving infiltrates compared to prior CT scan done 06/30 (just discharged from [facility]) * symptoms and hypoxemia consistent with Acute COPD exacerbation from recent Covid infection * With review of old records, patient completed a full course of antibiotics and I do not believe that antibiotics are warranted at this time (procalcitonin negative, no leukocytosis) * Treated with IV steroids (since downtitrated and converted to oral prednisone), aggressive pulmonary toilet, antitussives and mucolytic agents * takes not controlling medications for COPD. Transition Pulmicort/Perforomist to Advair and Spiriva * showing continued favorable response * No longer requiring supplemental oxygen. Overnight pulse ox done -->92% on room air * At this point, is medically and hemodynamically stable for discharge; however, given associated weakness plan is for rehab (2) History of COVID-19: Plan: * Hospitalized 06/18 through 06/29 at [facility] * Likely contributing to #1 and her generalized weakness (3) Debility: Plan: * Patient with recent hospitalization. Therapy at the time is recommending rehab but patient refused. * Debility likely due to recent Covid illness and [id number] hospitalizations * PT/OT has evaluated the patient and is recommending rehab. Patient reluctant but now agreeable. Case management on board. (4) Leukocytosis: Plan: * Likely steroid-induced as normal WBC count on arrival. Has since been up trending with addition of steroids * Continue to monitor * Urinalysis with culture being obtained given worsening incontinence- see below (5) Urinary incontinence: Plan: * Patient with Rubio catheter upfront (placed in the ED) * Has intermittent urinary incontinence at home but reports a significant increase in this since removal of Rubio catheter. Mild dysuria but no hematuria. No fevers or chills. White blood cell count is elevated but also on steroids. * Will obtain a urinalysis and culture. If grossly infected will empirically start antibiotics and continue to monitor (6) Atrial fib/flutter, transient: Plan: * Currently in a sinus rhythm with controlled rate * Continue Eliquis * No rate controlling medications on board (7) Chronic kidney disease, stage 3: Plan: * Creatinine slightly elevated at 1.3 but at her baseline * Renally adjust medications when appropriate (8) Diabetes mellitus type 2, uncontrolled: Plan: * on levemir, analong (with correction dosing and carb counting) along with NPH given IV steroids on board (which have since been stopped) * still with BS in the 400's-- suspect steroid induced as A1C acceptable and at goal (7.2%) * pharmacy on board for glycemic mgmt-- appreciate assistance (9) Hypothyroidism: Plan: * Continue Synthroid Plan: Plan of care to be discussed with Dr. Hylton Rehab was recommended prior to her discharge from [facility] but she refused. Seen in the ED after that discharge for diarrhea and again refused rehab. PT/OT seen patient while in house and continues to recommend rehab. Patient now agreeable. CM on board. Patient Medically and hemodynamically stable for D/C when bed available. Referrals placed to [facility] and [facility] but no availability at this time. Case management continues to work diligently on this Admission and Anticipated Discharge Date Admission Date: July 22, 2021 Supervising Physician Co-Signing Physician Notes Attending Attestation - Chart reviewed, care plan d/w ALMA Alfaro. I agree with the rios components of her documentation. Harjinder Hylton MD Subjective Patient seen on daily rounds today. Reports overall feeling significantly improved. Denies fevers, chills, chest pain, shortness of breath, abdominal pain, nausea vomiting. Breathing comfortably and overall improved. No longer requiring supplemental oxygen. Her only complaint today is urinary incontinence which has seemed to improve since this hospital stay. Did have a Rubio catheter upfront. Denies significant dysuria, hematuria but is complaining of frequency and incontinence. She is agreeable to placement in case management is working on this. Review of Systems Review of Systems: All systems reviewed and are unremarkable except as noted in HPI and below Denies fevers, chills, headache, nasal congestion, sore throat, cough, chest pain, shortness of breath, palpitations, orthopnea, PND, abdominal pain, nausea, vomiting, diarrhea, constipation, dysuria, hematuria, back pain, joint pain or swelling, easy bruising or bleeding, skin lesions or rashes. Physical Exam Physical Exam: General: Resting comfortably in her bedside chair. NAD. HEENT: Head is AT/NC. Buccal mucosa is moist and pink Neck: No JVD. Negative hepatojugular reflex Cardiac: Currently in a sinus rhythm with controlled ventricular rate with 2/6 SALVADOR Lungs: Speaking full sentences on ambient air. Normal respiratory effort. Significantly improved air exchange throughout without wheezes, rales or rhonchi Abdomen: Normoactive X4. Soft and nontender in all quadrants. Extremities: No peripheral clubbing cyanosis or edema Neuro: A&O X4. Cranial nerves II through XII are grossly intact. No focal neuro deficits Skin: No obvious skin lesions or rashes Psych: Appropriate affect. Pleasant and cooperative Results & Data Results & Data ([facility]) Vital Signs (Past 12 Hours) Vital Signs Temp Pulse Resp BP Pulse Ox 07/26/21 07:42 36.7 C 86 18 147/82 H 92 07/26/21 07:36 90 18 94 07/25/21 23:22 36.9 C 93 H 18 146/75 H 92 Laboratory Results 07/26/21 06:09 07/26/21 06:09 PG Care Time/CCT Total # of Minutes Spent Total Time Spent with Patient: Total time spent is greater than 50% in coordination of care (as documented) at patient's floor/unit and/or counseling patient: Coding Level of Care Code 51582 Subseq Hosp Care Lvl 2 Diagnoses Acute exacerbation of chronic obstructive pulmonary disease (COPD) J44.1 History of COVID-19 Z86.16 Debility R53.81 Atrial fib/flutter, transient Chronic kidney disease, stage 3 N18.32 Chronic kidney disease stage 3 subtype: stage 3b (GFR 30-44) Diabetes mellitus type 2, uncontrolled E11.65 Coma presence: without coma Hypothyroidism E03.9 Hypothyroidism type: unspecified Leukocytosis D72.829 Urinary incontinence R32 (1) Chronic kidney disease, stage 3 Chronic kidney disease stage 3 subtype: stage 3b (GFR 30-44) Qualified Code(s): N18.32 - Chronic kidney disease, stage 3b (2) Hypothyroidism Hypothyroidism type: unspecified Qualified Code(s): E03.9 - Hypothyroidism, unspecified (3) Diabetes mellitus type 2, uncontrolled Coma presence: without coma
[2021-07-26] MEDS: DONEPEZIL HCL 5 MG TAB PO SCH (20:19)
[2021-07-26] MEDS: ROSUVASTATIN CALCIUM 20 MG TAB PO SCH (20:19)
[2021-07-27] MEDS: LEVOTHYROXINE SODIUM 75 MCG TABLET PO SCH (05:59)
[2021-07-27] MEDS: ANASTROZOLE 1 MG TAB PO SCH (08:12)
[2021-07-27] MEDS: CETIRIZINE HCL 10 MG TABLET PO SCH (08:12)
[2021-07-27] MEDS: UMECLIDINIUM BROMIDE 62.5MCG/BLISTER 7 PUFFS/INHALER INH SCH (08:12)
[2021-07-27] MEDS: FLUTICASONE/VILANTEROL 200/25MCG 14 PUFFS/INHALER INH SCH (08:12)
[2021-07-27] MEDS: ASPIRIN 81 MG CHEW PO SCH (08:12)
[2021-07-27] MEDS: APIXABAN 5 MG TABLET PO SCH ×2 (08:12→20:28)
[2021-07-27] MEDS: guaiFENesin 600 MG TABCR PO SCH ×2 (08:13→20:27)
[2021-07-27] MEDS: CLOPIDOGREL BISULFATE 75 MG TAB PO SCH (08:13)
[2021-07-27] MEDS: PANTOprazole 40 MG TAB PO SCH (08:13)
[2021-07-27] MEDS: VENLAFAXINE HCL XR 150 MG CAPXR PO SCH ×2 (08:13→20:27)
[2021-07-27] MEDS: GABAPENTIN 600 MG TAB PO SCH ×2 (08:13→20:26)
[2021-07-27] MEDS: predniSONE 20 MG TAB PO SCH (08:13)
[2021-07-27] MEDS: OXYBUTYNIN CHLORIDE XL 5 MG TABCR PO SCH (08:13)
--- NOTE | 2021-07-27 08:31 | Hospitalist Progress Note ---
Date of Service July 27, 2021 Assessment & Plan (1) Acute exacerbation of chronic obstructive pulmonary disease (COPD): Plan: 80-year-old white female with an underlying past medical history of paroxysmal atrial fibrillation, PA, CKD, and COPD recently hospitalized at [facility] (06/18 through 06/29 for Covid). Was discharged without the need for supplemental oxygen. * Presented with mild hypoxemia of 88% and progressive weakness and shortness of breath * CT of the chest showing multifocal disease but improving infiltrates compared to prior CT scan done 06/30 (just discharged from [facility]) * symptoms and hypoxemia consistent with Acute COPD exacerbation from recent Covid infection * With review of old records, patient completed a full course of antibiotics and I do not believe that antibiotics are warranted at this time (procalcitonin negative, no leukocytosis) * Treated with IV steroids, aggressive pulmonary toilet, antitussives and mucolytic agents * I DC steroids since transitioned to oral prednisone. Continue taper of this * takes not controlling medications for COPD. Transitioned Pulmicort/Perforomist to Advair and Spiriva * showing continued favorable response * No longer requiring supplemental oxygen. Overnight pulse ox done -->92% on room air * At this point, is medically and hemodynamically stable for discharge; however, given associated weakness plan is for rehab * And lengthy discussion with patient, she does carry diagnosis of COPD but reports she is never had pulmonary function studies and again does not take any controller medications for this. At some point, she should follow-up with her PCP for full PFTs. In discussion regarding her history, she has smoked 1 pack/day for > than 65 years giving her a 24-vqvi-hbhc history (2) History of COVID-19: Plan: * Hospitalized 06/18 through 06/29 at [facility] * Likely contributing to #1 and her generalized weakness (3) Debility: Plan: * Patient with recent hospitalization. Therapy at the time is recommending rehab but patient refused. * Debility likely due to recent Covid illness and [id number] hospitalizations * PT/OT has evaluated the patient and is recommending rehab. Patient reluctant but now agreeable. Case management on board. * Updated therapy notes still recommending rehab (4) Leukocytosis: Plan: * Likely steroid-induced as normal WBC count on arrival. Has since been up trending with addition of steroids * Continue to monitor * Urinalysis with culture being obtained given worsening incontinence- see below (5) Urinary incontinence: Plan: * Patient with Rubio catheter upfront (placed in the ED) * Has intermittent urinary incontinence at home but reports a significant increase in this since removal of Rubio catheter. Mild dysuria but no hematuria. No fevers or chills. White blood cell count is elevated but also on steroids. * Urinalysis obtained and not grossly infected * Suspect patient having a degree of overflow incontinence given her debility and limitations getting to the bathroom on time (6) Atrial fib/flutter, transient: Plan: * Currently in a sinus rhythm with controlled rate * Continue Eliquis * No rate controlling medications on board (7) Chronic kidney disease, stage 3: Plan: * Creatinine slightly elevated at 1.3 but at her baseline * Renally adjust medications when appropriate (8) Diabetes mellitus type 2, uncontrolled: Plan: * on levemir, analong (with correction dosing and carb counting) along with NPH given IV steroids on board (which have since been stopped) * still with BS in the 400's-- suspect steroid induced as A1C acceptable and at goal (7.2%) * pharmacy on board for glycemic mgmt-- appreciate assistance (9) Hypothyroidism: Plan: * Continue Synthroid Plan: Plan of care to be discussed with Dr. Hylton Rehab was recommended prior to her discharge from [facility] but she refused. Seen in the ED after that discharge for diarrhea and again refused rehab. PT/OT seen patient while in house and continues to recommend rehab. Patient now agreeable. CM on board. Patient Medically and hemodynamically stable for D/C when bed available. Referrals placed to [facility] and [facility] but no availability at this time. Case management continues to work diligently on this Admission and Anticipated Discharge Date Admission Date: July 22, 2021 Supervising Physician Co-Signing Physician Notes Attending Attestation - Chart reviewed, care plan d/w ALMA Alfaro. I agree with the rios components of her documentation. Patient with recurrent admissions and/or ER visits for COVID and post-COVID deconditioning. Agree with inpatient rehab post-discharge. Harjinder Hylton MD Subjective Patient seen on daily rounds today. Reports vocal hoarseness but otherwise denies any significant complaints or concerns. Denies fevers, chills, chest pa in, shortness of breath, abdominal pain, nausea or vomiting. Has been medically and hemodynamically stable for discharge to home; however, has been awaiting placement. She is second-guessing going to rehab at this point. Review of Systems Review of Systems: All systems reviewed and are unremarkable except as noted in HPI and below Denies fevers, chills, headache, nasal congestion, sore throat, cough, chest pain, shortness of breath, palpitations, orthopnea, PND, abdominal pain, nausea, vomiting, diarrhea, constipation, dysuria, hematuria, back pain, joint pain or swelling, easy bruising or bleeding, skin lesions or rashes. Physical Exam Physical Exam: General: Resting comfortably in her bedside chair. NAD. HEENT: Head is AT/NC. Buccal mucosa is moist and pink Neck: No JVD. Negative hepatojugular reflex Cardiac: Currently in a sinus rhythm with controlled ventricular rate with 2/6 SALVADOR Lungs: Speaking full sentences on ambient air. Normal respiratory effort. Significantly improved air exchange throughout without wheezes, rales or rhonchi Abdomen: Normoactive X4. Soft and nontender in all quadrants. Extremities: No peripheral clubbing cyanosis or edema Neuro: A&O X4. Cranial nerves II through XII are grossly intact. No focal neuro deficits Skin: No obvious skin lesions or rashes Psych: Appropriate affect. Pleasant and cooperative Results & Data Results & Data ([facility]) Vital Signs (Past 12 Hours) Vital Signs Temp Pulse Resp BP Pulse Ox 07/27/21 07:40 36.3 C L 86 16 139/75 94 07/26/21 22:50 36.8 C 88 18 144/74 H 94 Laboratory Results 07/26/21 06:09 07/26/21 06:09 PG Care Time/CCT Total # of Minutes Spent Total Time Spent with Patient: Total time spent is greater than 50% in coordination of care (as documented) at patient's floor/unit and/or counseling patient: Coding Level of Care Code 80651 Subseq Hosp Care Lvl 2 Diagnoses Acute exacerbation of chronic obstructive pulmonary disease (COPD) J44.1 History of COVID-19 Z86.16 Debility R53.81 Leukocytosis D72.829 Urinary incontinence R32 Atrial fib/flutter, transient Chronic kidney disease, stage 3 N18.32 Chronic kidney disease stage 3 subtype: stage 3b (GFR 30-44) Diabetes mellitus type 2, uncontrolled E11.65 Coma presence: without coma Hypothyroidism E03.9 Hypothyroidism type: unspecified (1) Chronic kidney disease, stage 3 Chronic kidney disease stage 3 subtype: stage 3b (GFR 30-44) Qualified Code(s): N18.32 - Chronic kidney disease, stage 3b (2) Hypothyroidism Hypothyroidism type: unspecified Qualified Code(s): E03.9 - Hypothyroidism, unspecified (3) Diabetes mellitus type 2, uncontrolled Coma presence: without coma
[2021-07-27] MEDS ORDERED: INSULIN HUMAN NPH SC SCH (09:00)
[2021-07-27] MEDS: INSULIN ASPART PER UNIT SC SCH ×4 (09:07→21:07)
[2021-07-27] MEDS: INSULIN DETEMIR FLEXPEN/FLEX TOUCH 100 UNITS/ML 3ML SQ SCH ×2 (09:09→21:04)
--- NOTE | 2021-07-27 14:19 | Pharmacy Report ---
Pharmacy Glycemic Short Note 2 - Date of Service July 27, 2021 - Glycemic Short BSG Results (Last 24 hours): 07/26/21 07/26/21 07/26/21 16:45 20:43 20:44 POC Glucose 293 H 310 H* 325 H* 07/27/21 07/27/21 08:03 11:58 POC Glucose 100 H 216 H OUTPATIENT ANTIDIABETIC REGIMEN: * Levemir 40 units SQ BID * Novolog 20 units SQ AC * HbA1c = 7.2% (07/24/21) ASSESSMENT: 07/27: * Patient received total 171 units of insulin yesterday (95 units basal + 76 units bolus). * BSGs were [phone] mg/dl yesterday. Post prandial BSG elevations were most likely due to the Prednisone 40 mg AM dose. * Fasting BSG today was 100 mg/dl. Levemir BID continued at same dose. But, increased NPH insulin to 25 units with the Prednisone 40 mg QAM. * Novolog CF and CR tightened slightly. 07/26: * Sharon received a total of 166 units of insulin yesterday (90 units basal + 76 units bolus). * BSGs were 519-506-254-215 mg/dL. Two overnight checks were 193-183 mg/dL. * Fasting BSG improved to 142 mg/dL this AM. * Expect patient's insulin requirements to decrease given decrease in steroid dose. Continues on Prednisone 40 mg daily. * No change to NPH - continue to cover steroid induced hyperglycemia. * Basal insulin requires no adjustment * Lunch BSG was 342-299 mg/dL * Tightened carb ratio 07/25: * 81 yo F admitted on 07/22/21 secondary to COPD exacerbation. BSGs have been significantly elevated due to IV steroid administration. Pharmacy was consulted this afternoon to assist with inpatient glycemic management. * Steroids have been switched to Prednisone 40 mg PO daily starting tomorrow (07/26). Patient is ordered a type 2 diet. * Fasting BSG today was 277 mg/dL followed by 472 mg/dL at lunch. * Will continue targeting a goal BSG of 110-140 mg/dL * Will continue Lantus 40 units SQ BID as previously ordered * Will tighten Novolog at dinner. * Will give a 5 units regular insulin bolus IV now x 1 for BSG of 427 mg/dL * Increasing NPH dose tomorrow morning to cover prednisone PLAN FOR INPATIENT GLYCEMIC CONTROL: * Basal insulin * Lantus 40 units SQ BID * NPH 25 units SQ daily (give with prednisone - hold if prednisone held or discontinued) * Bolus insulin - tightened CF and CR * NovoLog per scale ACHS or Q6hrs while NPO * Goal Range: Low 110 mg/dL - High 140 mg/dL * Correction Factor: 12 mg/dL/unit * Nutritional / Prandial insulin per carb ratio of 1 unit per 4.5 grams CHO consumed PLAN FOR DISCHARGE: * HbA1c of 7.2% is at goal for this patient. * Recommend continuing outpatient regimen upon discharge as long as patient is not experiencing hypoglycemia at home. * If steroids continued upon discharge, may need increased insulin doses.
[2021-07-27] MEDS: NICOTINE 7 MG/24 HR TDSY TD SCH (17:12)
[2021-07-27] MEDS: ROSUVASTATIN CALCIUM 20 MG TAB PO SCH (20:26)
[2021-07-27] MEDS: DONEPEZIL HCL 5 MG TAB PO SCH (20:28)
[2021-07-28] MEDS: LEVOTHYROXINE SODIUM 75 MCG TABLET PO SCH ×2 (06:05→06:06)
[2021-07-28] MEDS: CETIRIZINE HCL 10 MG TABLET PO SCH (08:33)
[2021-07-28] MEDS: CLOPIDOGREL BISULFATE 75 MG TAB PO SCH (08:33)
[2021-07-28] MEDS: FLUTICASONE/VILANTEROL 200/25MCG 14 PUFFS/INHALER INH SCH (08:33)
[2021-07-28] MEDS: ASPIRIN 81 MG CHEW PO SCH (08:33)
[2021-07-28] MEDS: APIXABAN 5 MG TABLET PO SCH (08:33)
[2021-07-28] MEDS: ANASTROZOLE 1 MG TAB PO SCH (08:33)
[2021-07-28] MEDS: NICOTINE 7 MG/24 HR TDSY TD SCH (08:33)
[2021-07-28] MEDS: guaiFENesin 600 MG TABCR PO SCH (08:33)
[2021-07-28] MEDS: GABAPENTIN 600 MG TAB PO SCH (08:33)
[2021-07-28] MEDS: PANTOprazole 40 MG TAB PO SCH (08:34)
[2021-07-28] MEDS: VENLAFAXINE HCL XR 150 MG CAPXR PO SCH (08:34)
[2021-07-28] MEDS: OXYBUTYNIN CHLORIDE XL 5 MG TABCR PO SCH (08:34)
[2021-07-28] MEDS: UMECLIDINIUM BROMIDE 62.5MCG/BLISTER 7 PUFFS/INHALER INH SCH (08:35)
[2021-07-28] MEDS ORDERED: predniSONE 20 MG TAB PO SCH (09:00)
[2021-07-28] MEDS ORDERED: INSULIN HUMAN NPH SC SCH (09:00)
[2021-07-28] MEDS: INSULIN DETEMIR FLEXPEN/FLEX TOUCH 100 UNITS/ML 3ML SQ SCH (09:08)
[2021-07-28] MEDS: INSULIN ASPART PER UNIT SC SCH ×2 (09:10→13:04)
--- NOTE | 2021-07-28 13:15 | Pharmacy Report ---
Pharmacy Glycemic Short Note 2 - Date of Service July 28, 2021 - Glycemic Short BSG Results (Last 24 hours): 07/27/21 07/27/21 07/28/21 16:55 20:33 08:08 POC Glucose 137 H 243 H 73 07/28/21 11:53 POC Glucose 239 H OUTPATIENT ANTIDIABETIC REGIMEN: * Levemir 40 units SQ BID * Novolog 20 units SQ AC * HbA1c = 7.2% (07/24/21) ASSESSMENT: 07/28: * Patient received total of 157 units of insulin yesterday: 105 units basal + 52 units bolus. * BSGs yesterday were [phone] mg/dl. * Fasting BSG today was 73 mg/dl. NPH dose decreased to 0.25 units/kg this AM to be given with PO Prednisone. * Prednisone PO dose decreased to 20 mg daily. NPH dose was not decreased enough (dose should have been 0.2 units/kg) before it was given so Novolog CF/CR was loosened with lunch. * Pre-lunch BSG above 200 mg/dl. Novolog CF/CR tightened back again for dinner. 07/27: * Patient received total 171 units of insulin yesterday (95 units basal + 76 units bolus). * BSGs were [phone] mg/dl yesterday. Post prandial BSG elevations were most likely due to the Prednisone 40 mg AM dose. * Fasting BSG today was 100 mg/dl. Levemir BID continued at same dose. But, increased NPH insulin to 25 units with the Prednisone 40 mg QAM. * Novolog CF and CR tightened slightly. 07/26: * Sharon received a total of 166 units of insulin yesterday (90 units basal + 76 units bolus). * BSGs were 163-486-449-215 mg/dL. Two overnight checks were 193-183 mg/dL. * Fasting BSG improved to 142 mg/dL this AM. * Expect patient's insulin requirements to decrease given decrease in steroid dose. Continues on Prednisone 40 mg daily. * No change to NPH - continue to cover steroid induced hyperglycemia. * Basal insulin requires no adjustment * Lunch BSG was 342-299 mg/dL * Tightened carb ratio 07/25: * 81 yo F admitted on 07/22/21 secondary to COPD exacerbation. BSGs have been significantly elevated due to IV steroid administration. Pharmacy was consulted this afternoon to assist with inpatient glycemic management. * Steroids have been switched to Prednisone 40 mg PO daily starting tomorrow (07/26). Patient is ordered a type 2 diet. * Fasting BSG today was 277 mg/dL followed by 472 mg/dL at lunch. * Will continue targeting a goal BSG of 110-140 mg/dL * Will continue Lantus 40 units SQ BID as previously ordered * Will tighten Novolog at dinner. * Will give a 5 units regular insulin bolus IV now x 1 for BSG of 427 mg/dL * Increasing NPH dose tomorrow morning to cover prednisone PLAN FOR INPATIENT GLYCEMIC CONTROL: * Basal insulin * Lantus 40 units SQ BID * NPH 20 units SQ daily (give with prednisone - hold if prednisone held or discontinued) * Bolus insulin * NovoLog per scale ACHS or Q6hrs while NPO * Goal Range: Low 110 mg/dL - High 140 mg/dL * Correction Factor: 12 mg/dL/unit * Nutritional / Prandial insulin per carb ratio of 1 unit per 4.5 grams CHO consumed PLAN FOR DISCHARGE: * HbA1c of 7.2% is at goal for this patient. * Recommend continuing outpatient regimen upon discharge as long as patient is not experiencing hypoglycemia at home. * If steroids continued upon discharge, may need increased insulin doses.
[2021-07-28] MEDS ORDERED: MECLIZINE 12.5 MG TAB PO STA (13:52)
[2021-07-28 14:25] VITALS: TEMP 97.9
--- NOTE | 2021-07-28 14:27 | Discharge Summary ---
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 Patient comes to the emergency room today for complaints of fatigue, loss of appetite, dyspnea and cough. The patient was admitted to [facility] in Jun 23 for COVID 19, she was discharged on to home following this. The patient states that she continues to just feel exhausted, will start to eat and just gets to tired to continue. She also endorses decreased fluid intake. She remains with product bharti cough, that she reports as thick yellow sputum which has changed since her discharge from there. She was mildly hypoxic on admission to the EMD to 88% on room air. She denies fevers. She has a niece that checks on her as her manager long term care daily and tries to assist her at home. In the EMD she had a CXR done, blood cultures, flores catheter placed and routine labs performed. She had WBC of 12 with mild NLR, negative COVID and flu test. CXR revealed bilateral airspace opacities and improvement aeration in her lungs compared to 06/30/21. She had CT scan of abdomen and pelvis done for abdominal pain with no acute process. She was given 500mg of Azithromycin for concern of pneumonia. Overall this is likely continued deconditioning and recovery phase of COVID 19. She does have COPD history and her baseline oxygenation level is not known and no PFTs to review. Will continue her Azithromycin follow biomarkers, PCT added on and will obtain CT scan of her chest without contrast to further evaluate her pulmonary process. COVID test on admission is: NEGATIVE Principal Diagnosis 1. Acute exacerbation of COPD with hypoxemia 2. Overall debility/general declinerefuses rehab 3. Vestibular neuritis s/p Covid Discharge Exam General: Resting comfortably in her bedside chair. NAD. HEENT: Head is AT/NC. Buccal mucosa is moist and pink Neck: No JVD. Negative hepatojugular reflex Cardiac: Currently in a sinus rhythm with controlled ventricular rate with 2/6 SALVADOR Lungs: Speaking full sentences on ambient air. Normal respiratory effort. Significantly improved air exchange throughout without wheezes, rales or rhonchi Abdomen: Normoactive X4. Soft and nontender in all quadrants. Extremities: No peripheral clubbing cyanosis or edema Neuro: A&O X4. Cranial nerves II through XII are grossly intact. No focal neuro deficits Skin: No obvious skin lesions or rashes Psych: Appropriate affect. Pleasant and cooperative Discharge Data Allergies Allergy/AdvReac Type Severity Reaction Status Date / Time adhesive Allergy Intermediate BLISTERS Verified 08/01/21 13:35 amitriptyline AdvReac Intermediate HALLUCINATI Verified 08/01/21 13:35 ONS atorvastatin AdvReac Intermediate JOINT PAIN Verified 08/01/21 13:35 cephalexin AdvReac Intermediate N/V Verified 08/01/21 13:35 pioglitazone AdvReac Intermediate SEVERE Verified 08/01/21 13:35 FATIGUE tramadol AdvReac Intermediate N/V Verified 08/01/21 13:35 codeine AdvReac Mild NAUSEA AND Verified 08/01/21 13:35 VOMITING doxycycline AdvReac Mild GI SYMPTOMS Verified 08/01/21 13:35 hydroxychloroquine AdvReac Mild Diarrhea Verified 08/01/21 13:35 [From Plaquenil] liraglutide AdvReac Mild GI UPSET Verified 08/01/21 13:35 metformin AdvReac Mild NAUSEA AND Verified 08/01/21 13:35 VOMITING phenol AdvReac Mild GI UPSET Verified 08/01/21 13:35 propylene glycol AdvReac Mild GI UPSET Verified 08/01/21 13:35 saccharin AdvReac Mild diarrhea Verified 08/01/21 13:35 zoster vaccine live AdvReac Unknown Unknown Verified 08/01/21 13:35 [From Zostavax (PF)] Consultations 07/22/21 19:54 ED Decision to Admit Stat Ordered Studies 07/22/21 15:12 CT abd pelvis IV con only Stat IMPRESSION: 1. No bowel wall thickening or obstruction. 2. A few colonic diverticula. No evidence for acute diverticulitis. 3. Cholelithiasis. No gallbladder wall thickening. 4. An indeterminate 8 mm left perinephric soft tissue nodule. Follow-up abdomen and pelvis CT in 3 months is recommended to ensure stability and to exclude the possibility of a neoplastic/metastatic focus. 5. There is 9 cm thick-walled fluid collection within the right anterior chest wall. This favors a postoperative seroma. 6. Patchy bibasilar airspace opacities likely represents a viral pneumonia. 7. Additional findings as described above. CT head/brain wo con Stat IMPRESSION: No acute intracranial findings. No change in appearance of the brain. 07/22/21 20:43 CT chest diagnostic wo con Routine IMPRESSION: Multifocal airspace opacities are seen compatible with recent Covid pneumonia. Hospital Course (1) Acute exacerbation of chronic obstructive pulmonary disease (COPD): 80-year-old white female with an underlying past medical history of paroxysmal atrial fibrillation, PA, CKD, and COPD recently hospitalized at [facility] (06/18 through 06/29 for Covid). Was discharged without the need for supplemental oxygen. * Presented with mild hypoxemia of 88% and progressive weakness and shortness of breath * CT of the chest showing multifocal disease but improving infiltrates compared to prior CT scan done 06/30 (just discharged from [facility]) * symptoms and hypoxemia consistent with ACOPD exacerbation from recent Covid infection * With review of old records, patient completed a full course of antibiotics and I did not believe that antibiotics are warranted at this time (procalcitonin negative, no leukocytosis) * Treated with IV steroids, aggressive pulmonary toilet, antitussives and mucolytic agents * With favorable response, IV steroids since transitioned to oral prednisone. Continue downward taper * takes no controlling medications for COPD. Transitioned Pulmicort/Perforomist to Advair and Spirivapatient encouraged to rinse mouth out after use * No longer requiring supplemental oxygen. Overnight pulse ox done -->92% on room air. Two-step pulse oximetry done prior to discharge today and patient did not desaturate or require any supplemental oxygen. * At this point, is medically and hemodynamically stable for discharge for days. Therapy was recommending rehab. Patient agreeable upfront but now refusing as she does not want to await bed availability. * And lengthy discussion with patient, she does carry diagnosis of COPD but reports she is never had pulmonary function studies and again does not take any controller medications for this. At some point, she should follow-up with her PCP for full PFTs. In discussion regarding her history, she has smoked 1 pack/day for > than 65 years giving her a 60-[id number] history (2) History of COVID-19: * Hospitalized 06/18 through 06/29 at [facility] * Likely contributing to #1 and her generalized weakness * No complaints of dizziness to myself but when seen by attending provider on the day of discharge, made mention of intermittent dizziness that sounded to be consistent with vestibular neuritis likely secondary to recent Covid diagnosis. Given 1 dose of Antivert and symptoms improved. Prescription of Antivert provided upon discharge. Patient reported that she has a follow-up regarding this. Can discuss with her PCP and if persistent, consider vestibular work-up/Ani maneuver (3) Debility: * Patient with recent hospitalization. Therapy at the time is recommending rehab but patient refused. * Debility likely due to recent Covid illness and [id number] hospitalizations * PT/OT has evaluated the patient and is recommending rehab. Patient agreeable upfront. Has been medically and hemodynamically stable for days awaiting rehab placement but lack of beds * On 07/28, patient no longer agreeable. Despite risks of going home, that is her preference. She is well aware of limited rehab ability at home and risk of falling. * Case management has arranged home PT/OT, visiting nurses. In addition, patient receives 30 to 40 hours a week Of additional care. (4) Leukocytosis: * Likely steroid-induced as WBC count normal upon arrival * CT of the chest with improving infiltrates (from prior Covid diagnosis) * Urinalysis is not grossly infected * Procalcitonin negative * Urine culture and blood cultures negative (5) Urinary incontinence: * Patient with Flores catheter upfront (placed in the ED) * Has intermittent urinary incontinence at home but reports a significant increase in this since removal of Flores catheter. Mild dysuria but no hematuria. No fevers or chills. White blood cell count is elevated but also on steroids. * Urinalysis obtained and not grossly infected * Suspect patient having a degree of overflow incontinence given her debility and limitations getting to the bathroom on time (6) Atrial fib/flutter, transient: * Currently in a sinus rhythm with controlled rate * Continue Eliquis * No rate controlling medications on board (7) Chronic kidney disease, stage 3: * Creatinine slightly elevated at 1.3 but at her baseline * Renally adjust medications when appropriate (8) Diabetes mellitus type 2, uncontrolled: * on levemir, analong (with correction dosing and carb counting) along with NPH given IV steroids on board (which have since been stopped) * still with BS in the 400's-- suspect steroid induced as A1C acceptable and at goal (7.2%) * pharmacy on board for glycemic mgmt-- appreciate assistance * Is improving with down titration of steroids (73 this morning) (9) Hypothyroidism: * Continue Synthroid Plan of care discussed with Dr. Hylton Total Time Total Time Spent Total Time Spent (In Minutes): 40 minutes including time spent with patient, coordination of care, preparation of documentation and discussion with attending provider Discharge Plan Discharge Items Patient Disposition: Home - Home Health Services Reason For Visit: FATIGUE, WEAKNESS, PNA Discharge Diagnosis: 1. Acute exacerbation of COPD 2. Generalized weakness/overall debilityrefuses rehab Activity: Resume your previous activity Non-emergency contact: Primary Care Provider Call non-emergency contact if: you have any medication questions and your sympto ms worsen Follow-up/Referrals: Sumit De La Cruz MD [Primary Care Provider] - 08/08/21 11:00 am Diet: Carb Consistent or DM2 Addtl Attending Provider Instructions: You presented to the emergency department given generalized weakness and shortness of breath. Your oxygen levels were noted to be low Your shortness of breath and low oxygen levels are likely related to an acute exacerbation of COPD likely a result of recent Covid. You were treated with breathing treatments and IV steroids and overall your COPD exacerbation has improved. You are no longer requiring supplemental oxygen. Complete tapering course of prednisone as outlined below. Use nebulizer as needed and as outlined. In addition, you are not on any routine inhalers for your COPD (to help prevent an exacerbation) thus these have also been initiated. Be sure to rinse her mouth out after use. 1. Prednisone 10mg-starting tomorrow: 2 tabs daily x 2 days, then 1 tab d aily x 2 days then stop 2. Albuterol 1 ampoule via nebulizer every 6 hours as needed for cough, shortness of breath, wheezing 3. Advair 250/50-- 1 puff inhalation twice a day (RINSE MOUTH AFTER USE) 4. Spiriva 1 capsule (2 puffs) inhalation daily STRONGLY ENCOURAGE smoking cessation Continue the rest of your prehospital medications as outlined Your blood sugars were elevated while in house- due to steroids. They may continue to be slightly elevated while on steroids but will continue to improve with continued taper of prednisone While in the hospital, you were receiving physical therapy and Occupational Therapy. It was recommended that you go to rehab but you have refused. I suspect your overall decline/weakness is secondary to your 2 ptrj-ol-ukgy hospi talizations (first for Covid and now for this acute exacerbation of COPD). As discussed, you may not get back to your baseline as you were prior to developing Covidespecially with being discharged to home. Again, you have declined rehab. You are being set up with home health services including home PT, OT, home health aide and visiting nurses. When the attending provider was in to see you today, you reported some intermittent dizzy spells that improved with Antivert. You are being discharged with Antivert to use as needed. This may cause drowsiness. This dizziness is likely a sequela of having Covid. You were noted to have an 8 mm nodule near the left kidney. A follow-up CT in 3 months is recommended. This is at the discretion of your PCP as you will likely need a prior authorization for this scan Follow-up with your PCP within 7 to 10 days Return to the emergency department for any new or worsening symptoms Pending Studies at Discharge: No Stand-Alone Forms: [facility], Smoking Cessation Medications and DC Order Prescriptions: New fluticasone propion-salmeterol [Advair Diskus] 250-50 mcg/dose blister with device 1 inh inhalation BID Qty: 60 RF: 0 Spiriva with HandiHaler 18 mcg capsule, w/inhalation device 1 cap inhalation DAILY Qty: 30 RF: 0 albuterol sulfate 2.5 mg /3 mL (0.083 %) solution for nebulization 2.5 mg inhalation Q6H PRN (Reason: shortness of breath or wheezing) Qty: 90 RF: 0 meclizine 25 mg tablet 25 mg PO TID PRN (Reason: dizziness) Qty: 20 RF: 0 Continued Eliquis 5 mg tablet 5 mg PO BID RF: 0 lorazepam 0.5 mg tablet 0.5 mg PO TID PRN (Reason: Anxiety or muscle spasm) Qty: 30 RF: 0 gabapentin 300 mg capsule 600 mg PO BID Qty: 360 RF: 1 rosuvastatin [Crestor] 20 mg tablet 20 mg PO HS Qty: 90 RF: 3 cetirizine 10 mg tablet 10 mg PO QAM Qty: 90 RF: 1 venlafaxine 150 mg capsule,extended release 24hr 150 mg PO BID Qty: 180 RF: 3 oxybutynin chloride 10 mg tablet extended release 24hr 10 mg PO DAILY Qty: 90 RF: 3 (DME) OneTouch Ultra Test Strip See Rx Instructions .Route Qty: 300 RF: 1 (DME) diaper,brief,adult,disposable Misc See Rx Instructions .Route Qty: 60 RF: 5 (DME) Underpads Regular Pad See Rx Instructions .Route Qty: 40 RF: 5 hydroxyzine HCl 25 mg tablet 25 mg PO BID PRN (Reason: Itching) RF: 0 omeprazole 40 mg capsule,delayed release(DR/EC) 40 mg PO QAM RF: 0 aspirin 81 mg tablet,chewable 81 mg PO QAM RF: 0 PreserVision Lutein 226 mg-200 unit -5 mg-0.8 mg Capsule 1 cap PO QAM RF: 0 anastrozole 1 mg tablet 1 mg PO QAM RF: 0 donepezil 5 mg Tablet 5 mg PO HS RF: 0 insulin aspart U-100 [Novolog Flexpen U-100 Insulin] 100 unit/mL (3 mL) in sulin pen 1 unit subcut DIRECTED RF: 0 levothyroxine [Tirosint] 75 mcg capsule 75 mcg PO QAM RF: 0 Levemir FlexTouch U-100 Insuln 100 unit/mL (3 mL) insulin pen 40 unit subcut BID RF: 0 No Action cholecalciferol (vitamin D3) 50 mcg (2,000 unit) capsule 50 mcg PO DAILY Qty: 30 RF: 0 Discharge Orders: Discharge Order (Routine); Ordered 07/28/21 Ordered By: Shelly Hale/Other Patient Handouts: Managing Type 2 Diabetes Admission Data Admit Date/Time: 07/22/21 20:24 Attending Provider: Harjinder Hylton Admit Provider: Humaira Myers Primary Care Provider: Sumit De La Cruz Other Providers: Humaira Myers ; [place],[facility] ; [facility] ; [facility] Other Interventions: Discharge Summary Assessment (RN) Last Done: 07/28/21 15:16 Supervising Physician Co-Signing Physician Notes Attending Attestation and Discharge Note - Pt seen/examined, chart reviewed, care plan d/w ALMA Alfaro. I agree with the rios components of her discharge documentation. 81yo female with initial dx of COVID-19 pneumonia in late May 2021. Required hospitalization in late May/early June for her COVID at [facility]. Also had another admission in late June to [place] for COVID related symptoms, fatigue, etc. Presented to our hospital with similar symptoms, ongoing cough, ongoing dyspnea, etc. Treated for "COPD" exacerbation with steroids and given supportive care. Pulmonary symptoms improved with such. Inpatient rehab was recommended to the patient but she refused, instead wanting to return home. Just prior to her discharge she also complained of positional vertigo, with episodes lasting <30-60 seconds. Will Rx with antivert. This could be COVID-induced vestibular neuronitis. Patient was advised to follow-up with pulmonary as well as ENT for her vertigo. Discharge exam: gen - NAD eyes - few beats of horizontal nystagmus mouth - MMM neck - no JVD heart - RRR, s1 s2 lungs - mild rales bases, airation fair abd - soft NT ND ext - no edema Finally, the patient was noted to have a nodule near her L kidney. This was incidentally seen. In her d/c paperwork she was made aware of his finding and the need for repeat imaging in several months. Home health and home PT will be set up for her post-discharge. Harjinder Hylton MD Coding Level of Care Code D/C DAY MANAGEMENT >30 MINS Diagnoses Acute exacerbation of chronic obstructive pulmonary disease (COPD) J44.1 History of COVID-19 Z86.16 Debility R53.81 Leukocytosis D72.829 Urinary incontinence R32 Atrial fib/flutter, transient Chronic kidney disease, stage 3 N18.32 Chronic kidney disease stage 3 subtype: stage 3b (GFR 30-44) Diabetes mellitus type 2, uncontrolled E11.65 Coma presence: without coma Hypothyroidism E03.9 Hypothyroidism type: unspecified
[2021-07-28 15:18] VITALS: BP 127/77; PULSE 86; O2SAT 94
[2021-07-29] MEDS ORDERED: INSULIN HUMAN NPH SC SCH (09:00)
== END 2021-07-28 16:29 | disposition home health service (06) | DRG 191 ==
LOC: ED 13:57 → SUATTDRO 20:24 → 3W 20:24
DX: Z88.8 Allergy status to other drugs, medicaments and biological substances; C91.10 Chronic lymphocytic leukemia of B-cell type not having achieved remission; C79.81 Secondary malignant neoplasm of breast; I69.354 Hemiplegia and hemiparesis following cerebral infarction affecting left non-dominant side; Z79.890 Hormone replacement therapy; R32 Unspecified urinary incontinence; U09.9 Post COVID-19 condition, unspecified; H81.20 Vestibular neuronitis, unspecified ear; E11.22 Type 2 diabetes mellitus with diabetic chronic kidney disease; Z79.4 Long term (current) use of insulin; R09.02 Hypoxemia; I48.0 Paroxysmal atrial fibrillation; Z85.3 Personal history of malignant neoplasm of breast; G47.33 Obstructive sleep apnea (adult) (pediatric); I12.9 Hypertensive chronic kidney disease with stage 1 through stage 4 chronic kidney disease, or unspecified chronic kidney disease; E03.9 Hypothyroidism, unspecified; Z79.01 Long term (current) use of anticoagulants; I25.10 Atherosclerotic heart disease of native coronary artery without angina pectoris; N18.30 Chronic kidney disease, stage 3 unspecified; R53.81 Other malaise; Z88.7 Allergy status to serum and vaccine; J44.1 Chronic obstructive pulmonary disease with (acute) exacerbation; E87.2 Acidosis; E78.5 Hyperlipidemia, unspecified; Z79.82 Long term (current) use of aspirin; Z88.5 Allergy status to narcotic agent; F17.210 Nicotine dependence, cigarettes, uncomplicated; I65.09 Occlusion and stenosis of unspecified vertebral artery

== ENCOUNTER 2022-06-14 17:02 | Observation (INO) ==
[~2022-06-14 17:02] MED LIST changes: -AMOX500T PO; -ASPECOTC PO; -CETI10TA84 PO; -CHOL20009 PO; -EFF75 PO; -INSDGIPEN SC; -LEVO100C2 PO; -LISI-725 PO; -LORA-741 PO; -NVLGIPEN SC; -OXGN; -PRLSR20 PO; -SIMV40TA2 PO; +SODIUM CHLORIDE 0.9% 1000ML 1,000 ML IV SCH
[2022-06-14] MEDS ORDERED: OPTIRAY 320 500ml IV ONE (17:11)
--- NOTE | 2022-06-14 17:40 | CT Scan Report ---
UNENHANCED CT OF THE BRAIN; CT ANGIOGRAM OF THE BRAIN; CT ANGIOGRAM OF THE NECK CLINICAL HISTORY: Stroke like symptoms. COMPARISON STUDY: CT angiogram of the head and neck dated 01/30/2021. CT of the brain dated 07/22/2021. TECHNIQUE: Unenhanced axial CT scan of the brain is performed. Subsequently, following the IV adminis tration of 108 of Optiray 320, CT angiogram of the head and neck was performed from the aortic arch t o the vertex. Images are reviewed in the axial, sagittal, and coronal planes. 3-D MIPS images are cre ated and assessed. IV contrast was administered without complication. All measurements were calculate d based on NASCET criteria. A dose lowering technique was utilized adhering to the principles of ALA RA. CT DOSE: 1390.70 mGy.cm FINDINGS: Brain parenchyma: There is age-related involutional change noting advanced subcortical and periventri cular microangiopathy disease. Chronic lacunar infarcts are noted in the thalami and right basal gang gopal. There is no hemorrhage, mass effect, or evidence of acute territorial ischemia by CT criteria. T here is no evidence of enhancing mass lesion on the angiogram phase images. The ventricles, sulci, an d cisterns are normal in configuration. Woods-white matter differentiation is preserved. No extra-axia l fluid collection is seen. Thoracic aorta: There is atherosclerotic calcification of the thoracic aorta. Visualized portions of the thoracic aorta are normal in caliber. The aortic arch demonstrates standard 3-vessel anatomy. Right carotid arterial system: The right common carotid artery is widely patent. The atherosclerotic plaque and irregularity. The right internal and external carotid arteries are widely patent. 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 This is unchanged from previo us. Left carotid arterial system: There is advanced atherosclerotic plaque and irregularity seen through the left common carotid artery. There is moderate stenosis of the vessel distally seen on image #161. Advanced atherosclerotic plaque is seen within the carotid bulb and internal carotid artery. There i s no evidence of sylvian stenosis involving the left ICA. 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 This is kait nstituted at the level of C5. The distal vessel is patent to the skull base. There is moderate focal stenosis of the origin of the popliteal artery. The left vertebral artery is otherwise widely patent in the neck and dominant. The right vertebral artery is diminutive. Subclavian arteries: Patent bilaterally. Intracranial vasculature: There is atherosclerotic calcification of the cavernous carotid and vertebr al arteries. The internal carotid arteries are patent at the skull base, as are the anterior and midd le cerebral arteries bilaterally. The vertebrobasilar system and posterior cerebral arteries are talley nt. The left vertebral artery is dominant. Postsurgical change is noted in the intracranial vertebral artery at the skull base. Aneurysm coils are noted adjacent to the left vertebral artery. A clip is also seen adjacent to the proximal basilar. 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 There is high-grade focal stenosis of the T1 segment of the right posterior cerebral a rtery. This is best seen on axial image #96. There is a right posterior commuting artery. There is mo derate focal stenosis of the M2 segment of the left middle cerebral artery seen on image #94. Jugular veins: Patent bilaterally. A left internal jugular central venous infusion port is in place. Dural sinuses: Patent. Lung apices: Emphysema and fibrotic changes in the upper lobes. Soft tissues: The visualized pharyngeal soft tissues are normal in appearance noting angiographic pha se technique. The oropharyngeal airway appears widely patent. The salivary and thyroid glands are nor mal in appearance. No cervical lymphadenopathy is seen. Skeletal structures: The skeletal structures are osteopenic. The calvarium appears intact. The cervic al spine is maintained noting advanced multilevel spondylosis. Sclerotic change within the manubrium is consistent with bony metastatic disease. Orbits: The bony orbits are intact. Orbital contents are normal as visualized noting bilateral ocular lens implants. Sinuses and mastoids: The paranasal sinuses are clear. The mastoid air cells are well pneumatized. IMPRESSION: 1. There is no hemorrhage, mass effect, or evidence of acute territorial ischemia by CT criteria. 2. 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 This is unchanged. 3. There is high-grade focal stenosis at the origin of the right P1 segment. A focus of moderate sten osis is seen in the left middle cervical artery. 4. 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 These findings are similar to previous. 5. 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 This is unchanged from previous. 6. 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 This is unchanged. 7. There is moderate stenosis of the distal left common carotid artery. 8. There is moderate stenosis of the origin of the left vertebral artery. 9. 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 10. Additional findings as above. ACT 112: Negative or not required by law. Electronically signed by: Elliot Carolina M.D. 06/14/2022 5:38 PM
[2022-06-14 17:44] LABS: Basophils # (auto) 0.03 K/uL (0-0.2); Basophils % (auto) 0.3 %; Eosinophils # (auto) 0.32 K/uL (0-0.50); Eosinophils % (auto) 2.8 %; Hematocrit (blood only) 43.1 % (34.1-44.9); Hemoglobin 13.4 g/dl (12.0-16.0); Immature Granulocytes # (auto) 0.04 K/uL (0.00-0.02); Immature Granulocytes % (auto) 0.3 %; Lymphocytes # (auto) 2.51 K/uL (1.2-3.4); Lymphocytes % (auto) 21.9 %; Mean Corpuscular Hemoglobin 26.8 pg (25.0-34.0); Mean Corpuscular Hgb Conc 31.1 g/dL (32.0-36.0); Mean Corpuscular Volume 86.2 fL (80.0-100.0); Mean Platelet Volume 11.6 fL (9.4-12.3); Monocytes # (auto) 0.86 K/uL (0.24-0.82); Monocytes % (auto) 7.5 %; Neutrophils % (auto) 67.2 %; Platelet Count 382 K/uL (130-400); RDW Coefficient of Variation 15.8 % (11.5-14.5); RDW Standard Deviation 48.7 fL (36.4-46.3); White Blood Count 11.46 K/ul (4.8-10.8)
[2022-06-14 17:57] LABS: Partial Thromboplastin Ratio 1.1; Partial Thromboplastin Time 29.9 Seconds (21.0-31.0); Prothrombin Time 10.8 Seconds (9.0-12.0)
[2022-06-14 18:10] LABS: Troponin I High Sensitivity 10.9 pg/ml (0-14)
--- NOTE | 2022-06-14 18:11 | XRay Report ---
XR chest 1V portable HISTORY: neuro deficit, acute stroke suspected COMPARISON: Chest 02/22/2022. FINDINGS: No pneumothorax. The cardiac silhouette remains mildly enlarged. Left-sided jugular Port-A- Cath which terminates at the superior cavoatrial junction. This remains unchanged. No pleural effusio ns. No new focal lung consolidations. There is a healing/healed left humeral neck fracture. Scattered linear densities persist and favor scarring/atelectasis. IMPRESSION: No significant change compared to the prior study. No acute process. ACT 112: Negative or not required by law. Electronically signed by: Robles Hurst M.D. 06/14/2022 6:10 PM
[2022-06-14 18:18] LABS: Albumin Globulin Ratio 1.3 (0.9-2); Albumin Level 4.3 gm/dl (3.4-5.0); BUN Creatinine Ratio 13.5 (10-20); Bilirubin,Total 0.5 mg/dl (0.2-1.0); Calcium 9.8 mg/dl (8.5-10.1); Creatinine Clr Calc Pharmacy 34.2 ml/min; Est GFR (African American) 46.3 ml/min; Est GFR (Non-African American) 39.9 ml/min; Globulin 3.2 gm/dl (2.5-4.0); Magnesium 2.3 mg/dl (1.7-2.4); Potassium 4.5 mmol/L (3.5-5.1); Total Protein 7.5 gm/dl (6.0-8.3)
[2022-06-14 18:23] LABS: Appearance Urine Clear (Clear); Bacteria Urine Automated Negative (Negative); Bilirubin Urine Negative (Negative); Blood Urine Trace (Negative); Cast Urine Automated 0 /lpf (0-5); Color Urine Yellow; Glucose Urine UA Negative (Negative); Ketones Urine Negative (Negative); Leukocyte Esterase Urine Negative (Negative); Nitrite Urine Negative (Negative); Protein Urine Negative (Negative); RBC Urine Automated 0-4 /hpf (0-4); Specific Gravity Urine 1.011 (1.000-1.030); Urobilinogen Urine Negative (Negative); WBC Urine Automated 0 /hpf (0-5); pH Urine 7.5 (4.5-7.5)
--- NOTE | 2022-06-14 18:52 | Emergency Department Note ---
Impression & Plan Acute CVA (cerebrovascular accident) ED Provider Note INFORMANT: Patient and EMS ED PROVIDER(S): Warren Villa DO CHIEF COMPLAINT: CVA PLAN: Disposition: Admission Condition: Stable, improving Outpatient prescription management: none Referral: I spoke with the hospitalist, who will see the patient for admission/observation and further evaluation and consultation. I also spoke with Dr. Do, [facility] neurologist. MEDICAL DECISION MAKING: This is a 81-year-old female who presents to the ED with a chief complaint of strokelike symptoms. The patient's last known well was noon today. She was seen by a family member. This afternoon she was noticed to be having some slurred speech. Later in the afternoon she was noticed to have garbled speech and EMS was called for the patient. No family came in with the patient. She initially upon arrival had garbled speech. She also had left arm weakness and left leg weakness that was greater than in the arm weakness. No facial abnormalities noted. Prehospital blood sugar was in the 200 range. Blood pressure here was a little elevated. During the patient's evaluation here in the ED, she slowly was improving. She went from no movement of her left leg to having some movement. Her left arm was definitely improving as well and her initial speech was garbled and incomprehensible. After about 2 hours here, she was able to make sentences and was speaking clear enough to understand. CT scan of the brain as noted below. Significant vascular disease was noted. Twelve- lead EKG shows a sinus rhythm. The CBC shows no significant leukocytosis or anemia. Chemistry panel was unremarkable. Normal kidney function. No electrolyte abnormality. Troponin was negative for myocardial infarction. Urine did not show infection. Chest x-ray was negative for acute disease. COVID test was negative. The patient did improve during her stay. She was able to communicate verbally and her strength in her left leg and left arm improved significantly. The patient will be seen by the hospitalist, who I spoke with for further evaluation and care. I also did speak with Dr. Do early in the course as the patient was a stroke alert. Because of her time of onset versus time of arrival as well as the fact that she is chronically on Eliquis makes her ineligible for thrombolytics. Triage Nursing notes reviewed. Vital Signs: reviewed Prior /Outside records reviewed: Previous admission was reviewed. Differential diagnosis: Differential includes stroke, intracranial hemorrhage, other. Diagnostics, as interpreted by me: 12 lead ECG: Sinus rhythm at a rate of 80. No ST elevation. No PVCs. Normal QTC. Low voltage. Cardiac Monitoring: Sinus rhythm Medical decision rules: none Imaging studies: Chest x-ray: Negative for acute disease. No pneumothorax or pneumonia. Procedures: none. Critical care: I have personally spent 30 minutes of critical care time in the direct management of this patient. This includes bedside care, interpretation of diagnostic studies, and testing, discussion with consultants, patient, and family members, and other required patient management activities. This 30 minutes is in excess of all separately billable procedures. HPI: See MDM above. PAST MEDICAL HISTORY: See Below PAST SURGICAL HISTORY: See Below SOCIAL HISTORY: See Below HOME MEDICATIONS: See Below ALLERGIES: See Below VITALS: See Below PHYSICAL EXAMINATION: CONSTITUTIONAL/VITAL SIGNS: Reviewed GENERAL: Non-toxic in appearance. INTEGUMENTARY: Warm, dry, and [place]. HEAD: Normocephalic. EYES: without scleral icterus. ENT/OROPHARYNX: clear and moist. RESPIRATORY: No increased work of breathing. Lungs clear. CARDIOVASCULAR: Regular rate. Regular rhythm. GI/ABDOMEN: Soft and nontender. . EXTREMITIES: Normal NEUROLOGICAL: Intact without focal deficits. PSYCHIATRIC: Normal affect. MUSCULOSKELETAL: Normal. TRIAGE NURSING DOCUMENTATION REVIEWED. Past Med/Surg History Medical History Aneurysm, cerebral, nonruptured LV4 aneurysm treated with stent/coil 2016 Per 01/30/21 Head CTA = No change in a 4 mm saccular aneurysm of the distal right middle cerebral artery and a 2 mm basilar artery aneurysm. Anxiety Asthma well controlled per pt > no inhalers Atrial aneurysm Atrial fib/flutter, transient Follows [facility] > no cardioversions Loop recorder in place - [employer]- placed 09/05/18 Breast cancer DX in 2009> bilat mastectomy >no chemo Recently diagnosed with metastatic right breast carcinoma 08/13/20 Carotid artery stenosis Follows with [facility]. S/p CEA years ago Per 01/30/21 neck CTA- severe stenosis at origin of left vertebral artery. Occlusion of the proximal to mid right vertebral artery with distal reconstitution. Stable 5 mm outpouching of the proximal right internal carotid artery with possible associated short segment dissection, unchanged. Moderate atherosclerotic plaque with the major vessels of the neck Central stenosis of spinal canal Chronic kidney disease, stage 3a Chronic obstructive pulmonary disease Cirrhosis CLL (chronic lymphocytic leukemia) Coronary artery calcification Based on calcified coronary arteries on CT Scan Abd/Pelvis 08/03/20 Deep vein thrombosis several yrs ago> left leg > caused from control pills Depression Diabetes mellitus type 2, uncontrolled IDDM Diabetic nephropathy Gastroesophageal reflux disease History of COVID-19 (~05/2021) jul or august 2021, pcr test mn, admitted w/stroke, tested while in hospital- found to be covid +=in hospital for 3 weeks for stroke and covid>resolved. Hx of sleep apnea waiting on new cpap Hyperlipidemia Hypertension Hypothyroidism Left hemiparesis From stroke in November 2019>uses walker or wheelchair due to weakness Left ventricular outflow tract obstruction Lumbar radiculopathy Lumbar spinal stenosis Lumbar stenosis with neurogenic claudication Nonalcoholic steatohepatitis Osteopenia Polycythemia Recurrent cancer of right breast (08/13/20) Initially diagnosed 2009- s/p bilateral mastectomy recurrence to chest wall s/p XRT 07/2020 Sensorineural hearing loss (SNHL) of both ears Short-term memory loss Stroke December 05, 2019 > [facility] > has short term memory loss as result > left side weakness TIA (transient ischemic attack) Jan 2021 TMJ syndrome "don't have it all them time, just clicks, no locking" Urinary frequency Vertebral artery stenosis Per 01/30/21 neck CTA- severe stenosis at origin of left vertebral artery. Occlusion of the proximal to mid right vertebral artery with distal reconstitution. Stable 5 mm outpouching of the proximal right internal carotid artery with possible associated short segment dissection, unchanged. Moderate atherosclerotic plaque with the major vessels of the neck Surgical History H/O varicose vein ligation and stripping left leg History of appendectomy History of brain surgery Cerebral angiogram and stent-assisted coil embolization of the It PICA aneurysm. 12/22/2015 > follows with [facility] History of breast lump/mass excision History of carotid endarterectomy Right side per records Over 6 yrs ago > [facility] History of cataract surgery Right: July 2012 Left: August 2012 History of colonoscopy History of hysterectomy Ovaries intact History of mastectomy bilateral September 2009 History of parathyroid surgery Excision of benign neoplasm History of shoulder surgery Right shoulder arthroscopic labral debridement, subacromial decompression, and acromioplasty excision distal clavicle, biceps tenotomy. 06/15/2014 History of total knee replacement left 01/11/2012 Hx of excision of mass from chest wall > right side > radiation now complete Hx of tonsillectomy Port-A-Cath in place (02/22/22) Insertion Access Port with Fluoroscopy to left internal jugular vein (Left) - Joseph Ingram DO, FACS Family History Grandmother No problems noted. Father , in his 50s of lung cancer Lung disease Lung cancer Mother , in her 70s of cancer Cancer Hypertension Unknown , Niece at 37 Colon cancer Son Anxiety Depression Kidney stones Alcohol abuse Grandmother (Maternal) Lung cancer Sister COPD (chronic obstructive pulmonary disease) Son MVA (motor vehicle accident) Son Rheumatic fever Daughter Medical history unknown Denies family history of Ovarian cancer Prostate cancer Myocardial infarction Breast cancer Bleeding disorder Social History Smoking Status: Current every day smoker Tobacco Type: Cigarettes Age Started Using Tobacco: 16; Cigarettes Per Day: 1-2; Second Hand Exposure: Yes (); Hx Alcohol Use: Yes ("none in months") Alcohol type: other Hx Substance Use: No Preferred Language: Liberian Communication Ability: Effective Visual Impairment: No Limitations Hearing Ability: Normal Drawer In Stitch Bonding Machine Required: No Beliefs That Will Affect Care: None marital status: Current Living Situation: Spouse current occupational status: retired 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 How many Children do You have: 4 How many Children do You have Comment: Pregnancies:6 Children:4 :1 Feels Safe at Home: Yes Childhood Exposure to Second-Hand Smoke: Yes caffeine: Yes during the past year weight has: remained stable Dental Care, Regularly: No Physical Activity Frequency: Does not Exercise Seatbelt Use: never Assistive Devices: Denture - Upper, Denture - Lower, Glasses and Walker Allergies Allergies Allergy/AdvReac Type Severity Reaction Status Date / Time adhesive Allergy Intermediate BLISTERS Verified 06/14/22 17:50 amitriptyline AdvReac Intermediate HALLUCINATI Verified 06/14/22 17:50 ONS atorvastatin AdvReac Intermediate JOINT PAIN Verified 06/14/22 17:50 cephalexin AdvReac Intermediate N/V Verified 06/14/22 17:50 codeine AdvReac Intermediate NAUSEA AND Verified 06/14/22 17:50 VOMITING doxycycline AdvReac Intermediate GI SYMPTOMS Verified 06/14/22 17:50 hydroxychloroquine AdvReac Intermediate Diarrhea Verified 06/14/22 17:50 [From Plaquenil] liraglutide AdvReac Intermediate GI UPSET Verified 06/14/22 17:50 phenol AdvReac Intermediate GI UPSET Verified 06/14/22 17:50 pioglitazone AdvReac Intermediate SEVERE Verified 06/14/22 17:50 FATIGUE propylene glycol AdvReac Intermediate GI UPSET Verified 06/14/22 17:50 saccharin AdvReac Intermediate diarrhea Verified 06/14/22 17:50 tramadol AdvReac Intermediate N/V Verified 06/14/22 17:50 zoster vaccine live AdvReac Unknown Unknown Verified 06/14/22 17:50 [From Zostavax (PF)] Home Meds Home Medications Medication Instructions Recorded Confirmed vit C 226 mg-vit E 90 mg-copper 1 cap PO QAM 09/04/18 06/14/22 0.8 mg-zinc oxide-lutein 5 mg capsule (PreserVision Lutein) aspirin 81 mg chewable tablet 81 mg PO QAM 01/21/19 06/14/22 anastrozole 1 mg tablet 1 mg PO QAM 01/19/21 06/14/22 apixaban 5 mg tablet (Eliquis) 5 mg PO BID 05/05/21 06/14/22 alendronate 70 mg tablet 70 mg PO Q7D 08/26/21 06/14/22 donepezil 5 mg tablet 10 mg PO HS 02/02/22 06/14/22 gabapentin 300 mg capsule See Rx Instructions .Route .COMPLEX 06/12/22 06/14/22 hydrocodone 5 mg-acetaminophen 325 1 - 2 tab PO DIRECTED PRN Pain 06/12/22 06/14/22 mg tablet metformin 500 mg tablet,extended 500 mg PO HS 06/12/22 06/14/22 release 24 hr insulin aspar prot-insulin aspart 60 unit subcut BID 06/14/22 06/14/22 100 unit/mL (70-30) subcutaneous pen (Novolog Mix 70-30FlexPen U-100) insulin detemir U-100 100 unit/mL 50 unit subcut QAM 06/14/22 06/14/22 (3 mL) subcutaneous pen (Levemir FlexTouch U-100 Insulin) levothyroxine 75 mcg tablet 75 mcg PO QAM 06/14/22 06/14/22 oxybutynin chloride 15 mg 15 mg PO QPM 06/14/22 06/14/22 tablet,extended release 24 hr Previous Rx's Medication Instructions Recorded rosuvastatin 20 mg tablet (Crestor) 20 mg PO HS #90 tabs 02/07/21 Wheelchair (Powered) #1 ea 08/04/21 Wheelchair (Powered) (Power #1 ea 09/08/21 Wheelchair) pen needle, diabetic 32 gauge x #100 ea 09/26/21" (BD Pratima 2nd Gen Pen Needle) lorazepam 0.5 mg tablet 0.5 mg PO TID PRN Anxiety or 12/04/21 muscle spasm #30 tabs blood sugar diagnostic (OneTouch #300 ea 12/21/21 Ultra Test strips) diaper,brief,adult,disposable #60 ea 05/24/22 incontinence pad, liner, disp #60 ea 05/24/22 (Underpads Regular) vilazodone 20 mg tablet (Viibryd) 20 mg PO DAILY #90 tabs 05/24/22 AFO brace, L #1 ea 05/26/22 Wheeled Walker #1 ea 06/08/22 omeprazole 40 mg capsule,delayed 40 mg PO QAM #30 caps 06/12/22 release Results & Data (ED) Vital Signs Vital Signs - 24 hr 06/14/22 17:15 06/14/22 18:13 06/14/22 18:13 Temperature 36.9 C Temperature Source Oral Pulse Rate 84 Respiratory Rate 18 Respiratory Effort / Characteristics Non-Labored Spontaneous Respiratory Depth Normal Respiratory Pattern Regular Blood Pressure 145/61 H Blood Pressure Mean 89 Blood Pressure Position Sitting Pulse Oximetry 98 100 Oxygen Delivery Method Nasal Cannula Nasal Cannula Oxygen Flow Rate 2 2 Sepsis Recent Fever Within 48 Hours No Sepsis New/Unexplained Change in Mental Status N/A Sepsis Action Taken by Nursing No Action Required Oxygen Flow Rate - Titration 0 Pulse Oximetry Post Tiitration 95 06/14/22 17:34 06/14/22 18:00 06/14/22 18:16 Temperature Temperature Source Pulse Rate 86 79 81 Respiratory Rate 20 18 16 Respiratory Effort / Characteristics Respiratory Depth Respiratory Pattern Blood Pressure 145/61 H 182/86 H 153/72 H Blood Pressure Mean 89 118 99 Blood Pressure Position Pulse Oximetry 98 98 94 Oxygen Delivery Method Nasal Cannula Nasal Cannula Room Air Oxygen Flow Rate 2 2 Sepsis Recent Fever Within 48 Hours Sepsis New/Unexplained Change in Mental Status Sepsis Action Taken by Nursing Oxygen Flow Rate - Titration Pulse Oximetry Post Tiitration Laboratory Data 06/14/22 17:00 06/14/22 17:00 Lab Results 06/14/22 06/14/22 06/14/22 Range/Units 17:00 17:00 17:00 WBC 11.46 H (4.8-10.8) K/ul RBC 5.00 (3.93-5.22) M/uL Hgb 13.4 (12.0-16.0) g/dl Hct 43.1 (34.1-44.9) % MCV 86.2 (80.0-100.0) fL MCH 26.8 (25.0-34.0) pg MCHC 31.1 L (32.0-36.0) g/dL RDW Std Deviation 48.7 H (36.4-46.3) fL RDW Coeff of [place] 15.8 H (11.5-14.5) % Plt Count 382 (130-400) K/uL MPV 11.6 (9.4-12.3) fL Immature Gran % (Auto) 0.3 % Neut % (Auto) 67.2 % Lymph % (Auto) 21.9 % [place] % (Auto) 7.5 % Eos % (Auto) 2.8 % Baso % (Auto) 0.3 % Neut # (Auto) 7.70 H (1.4-6.5) K/uL Lymph # (Auto) 2.51 (1.2-3.4) K/uL [place] # (Auto) 0.86 H (0.24-0.82) K/uL Eos # (Auto) 0.32 (0-0.50) K/uL Baso # (Auto) 0.03 (0-0.2) K/uL Immature Gran # (Auto) 0.04 H (0.00-0.02) K/uL PT 10.8 (9.0-12.0) Seconds INR 1.0 (0.9-1.1) APTT 29.9 (21.0-31.0) Seconds PTT Ratio 1.1 Sodium 143 (136-145) mmol/L Potassium 4.5 (3.5-5.1) mmol/L Chloride 108 H (98-107) mmol/L Carbon Dioxide 29 (21-32) mmol/L Anion Gap 6 (3-11) BUN 17 (6-23) mg/dl Creatinine 1.26 H (0.6-1.2) mg/dl Est Cr Clr Drug Dosing 34.2 ml/min Est GFR ( Amer) 46.3 ml/min Est GFR (Non-Af Amer) 39.9 ml/min BUN/Creatinine Ratio 13.5 (10-20) Glucose 165 H (70-99(Fasting)) mg/dl POC Glucose (70-99) mg/dl Calcium 9.8 (8.5-10.1) mg/dl Magnesium 2.3 (1.7-2.4) mg/dl Total Bilirubin 0.5 (0.2-1.0) mg/dl AST 16 (13-39) U/L ALT 10 (7-52) U/L Alkaline Phosphatase 85 (34-104) U/L Troponin I High Sens 10.9 (0-14) pg/ml Total Protein 7.5 (6.0-8.3) gm/dl Albumin 4.3 (3.4-5.0) gm/dl Globulin 3.2 (2.5-4.0) gm/dl Albumin/Globulin Ratio 1.3 (0.9-2) Urine Color Urine Appearance (Clear) Urine pH (4.5-7.5) Ur Specific [place] (1.000-1.030) Urine Protein (Negative) Urine Glucose (UA) (Negative) Urine Ketones (Negative) Urine Blood (Negative) Urine Nitrite (Negative) Urine Bilirubin (Negative) Urine Urobilinogen (Negative) Ur Leukocyte Esterase (Negative) Urine WBC (Auto) (0-5) /hpf Urine RBC (Auto) (0-4) /hpf U Hyaline Cast (Auto) (0-5) /lpf U Epithel Cells (Auto) (0-5) /lpf Urine Bacteria (Auto) (Negative) SARS-CoV-2, RNA, NAAT (NEGATIVE) 06/14/22 06/14/22 06/14/22 Range/Units 17:25 17:39 18:00 WBC (4.8-10.8) K/ul RBC (3.93-5.22) M/uL Hgb (12.0-16.0) g/dl Hct (34.1-44.9) % MCV (80.0-100.0) fL MCH (25.0-34.0) pg MCHC (32.0-36.0) g/dL RDW Std Deviation (36.4-46.3) fL RDW Coeff of [place] (11.5-14.5) % Plt Count (130-400) K/uL MPV (9.4-12.3) fL Immature Gran % (Auto) % Neut % (Auto) % Lymph % (Auto) % [place] % (Auto) % Eos % (Auto) % Baso % (Auto) % Neut # (Auto) (1.4-6.5) K/uL Lymph # (Auto) (1.2-3.4) K/uL [place] # (Auto) (0.24-0.82) K/uL Eos # (Auto) (0-0.50) K/uL Baso # (Auto) (0-0.2) K/uL Immature Gran # (Auto) (0.00-0.02) K/uL PT (9.0-12.0) Seconds INR (0.9-1.1) APTT (21.0-31.0) Seconds PTT Ratio Sodium (136-145) mmol/L Potassium (3.5-5.1) mmol/L Chloride (98-107) mmol/L Carbon Dioxide (21-32) mmol/L Anion Gap (3-11) BUN (6-23) mg/dl Creatinine (0.6-1.2) mg/dl Est Cr Clr Drug Dosing ml/min Est GFR ( Amer) ml/min Est GFR (Non-Af Amer) ml/min BUN/Creatinine Ratio (10-20) Glucose (70-99(Fasting)) mg/dl POC Glucose 169 H (70-99) mg/dl Calcium (8.5-10.1) mg/dl Magnesium (1.7-2.4) mg/dl Total Bilirubin (0.2-1.0) mg/dl AST (13-39) U/L ALT (7-52) U/L Alkaline Phosphatase (34-104) U/L Troponin I High Sens (0-14) pg/ml Total Protein (6.0-8.3) gm/dl Albumin (3.4-5.0) gm/dl Globulin (2.5-4.0) gm/dl Albumin/Globulin Ratio (0.9-2) Urine Color Yellow Urine Appearance Clear (Clear) Urine pH 7.5 (4.5-7.5) Ur Specific [place] 1.011 (1.000-1.030) Urine Protein Negative (Negative) Urine Glucose (UA) Negative (Negative) Urine Ketones Negative (Negative) Urine Blood Trace H (Negative) Urine Nitrite Negative (Negative) Urine Bilirubin Negative (Negative) Urine Urobilinogen Negative (Negative) Ur Leukocyte Esterase Negative (Negative) Urine WBC (Auto) 0 (0-5) /hpf Urine RBC (Auto) 0-4 (0-4) /hpf U Hyaline Cast (Auto) 0 (0-5) /lpf U Epithel Cells (Auto) 5-10 H (0-5) /lpf Urine Bacteria (Auto) Negative (Negative) SARS-CoV-2, RNA, NAAT NEGATIVE (NEGATIVE) Administered Medications Sodium Chloride (Nss 1000ml) 1,000 mls @ 50 mls/hr IV .Q20H ALISSA Stop: 07/14/22 16:44 Last Admin: 06/14/22 18:13 Dose: 50 mls/hr Documented By: YULISA Discontinued Medications Ioversol (Optiray 320 500ml) 108 ml IV ONCE ONE Stop: 06/14/22 17:12 Last Admin: 06/14/22 17:15 Dose: 108 ml Documented By: MOLLY Imaging Data Radiologist's Impression: Chest X-Ray 06/14/22 16:43 XR chest 1V portable HISTORY: neuro deficit, acute stroke suspected COMPARISON: Chest 02/22/2022. FINDINGS: No pneumothorax. The cardiac silhouette remains mildly enlarged. Left- sided jugular Port-A-Cath which terminates at the superior cavoatrial junction. This remains unchanged. No pleural effusions. No new focal lung consolidations. There is a healing/healed left humeral neck fracture. Scattered linear densities persist and favor scarring/atelectasis. IMPRESSION: No significant change compared to the prior study. No acute process. ACT 112: Negative or not required by law. Electronically signed by: Robles Hurst M.D. 06/14/2022 6:[address] 06/14/22 16:[address] OF THE BRAIN; CT ANGIOGRAM OF THE BRAIN; CT ANGIOGRAM OF THE NECK CLINICAL HISTORY: Stroke like symptoms. COMPARISON STUDY: CT angiogram of the head and neck dated 01/30/2021. CT of the brain dated 07/22/2021. TECHNIQUE: Unenhanced axial CT scan of the brain is performed. Subsequently, following the IV administration of 108 of Optiray 320, CT angiogram of the head and neck was performed from the aortic arch to the vertex. Images are reviewed in the axial, sagittal, and coronal planes. 3-D MIPS images are created and assessed. IV contrast was administered without complication. All measurements were calculated based on NASCET criteria. A dose lowering technique was utilized adhering to the principles of ALARA. CT DOSE: 1390.70 mGy.cm FINDINGS: Brain parenchyma: There is age-related involutional change noting advanced subcortical and periventricular microangiopathy disease. Chronic lacunar infarcts are noted in the thalami and right basal ganglia. There is no hemorrhage, mass effect, or evidence of acute territorial ischemia by CT criteria. There is no evidence of enhancing mass lesion on the angiogram phase images. The ventricles, sulci, and cisterns are normal in configuration. [place]- white matter differentiation is preserved. No extra-axial fluid collection is seen. Thoracic aorta: There is atherosclerotic calcification of the thoracic aorta. Visualized portions of the thoracic aorta are normal in caliber. The aortic arch demonstrates standard 3-vessel anatomy. Right carotid arterial system: The right common carotid artery is widely patent. The atherosclerotic plaque and irregularity. The right internal and external carotid arteries are widely patent. 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 This is unchanged from previous. Left carotid arterial system: There is advanced atherosclerotic plaque and irregularity seen through the left common carotid artery. There is moderate stenosis of the vessel distally seen on image #161. Advanced atherosclerotic plaque is seen within the carotid bulb and internal carotid artery. There is no evidence of sylvian stenosis involving the left ICA. 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 This is reconstituted at the level of C5. The distal vessel is patent to the skull base. There is moderate focal stenosis of the origin of the popliteal artery. The left vertebral artery is otherwise widely patent in the neck and dominant. The right vertebral artery is diminutive. Subclavian arteries: Patent bilaterally. Intracranial vasculature: There is atherosclerotic calcification of the cavernous carotid and vertebral arteries. The internal carotid arteries are patent at the skull base, as are the anterior and middle cerebral arteries bilaterally. The vertebrobasilar system and posterior cerebral arteries are patent. The left vertebral artery is dominant. Postsurgical change is noted in the intracranial vertebral artery at the skull base. Aneurysm coils are noted adjacent to the left vertebral artery. A clip is also seen adjacent to the proximal basilar. 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 There is high-grade focal stenosis of the T1 segment of the right posterior cerebral artery. This is best seen on axial image #96. There is a right posterior commuting artery. There is moderate focal stenosis of the M2 segment of the left middle cerebral artery seen on image #94. Jugular veins: Patent bilaterally. A left internal jugular central venous infusion port is in place. Dural sinuses: Patent. Lung apices: Emphysema and fibrotic changes in the upper lobes. Soft tissues: The visualized pharyngeal soft tissues are normal in appearance noting angiographic phase technique. The oropharyngeal airway appears widely patent. The salivary and thyroid glands are normal in appearance. No cervical lymphadenopathy is seen. Skeletal structures: The skeletal structures are osteopenic. The calvarium appears intact. The cervical spine is maintained noting advanced multilevel spondylosis. Sclerotic change within the manubrium is consistent with bony metastatic disease. Orbits: The bony orbits are intact. Orbital contents are normal as visualized noting bilateral ocular lens implants. Sinuses and mastoids: The paranasal sinuses are clear. The mastoid air cells are well pneumatized. IMPRESSION: 1. There is no hemorrhage, mass effect, or evidence of acute territorial ischemia by CT criteria. 2. 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 This is unchanged. 3. There is high-grade focal stenosis at the origin of the right P1 segment. A focus of moderate stenosis is seen in the left middle cervical artery. 4. 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 These findings are similar to previous. 5. 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 This is unchanged from previous. 6. 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 This is unchanged. 7. There is moderate stenosis of the distal left common carotid artery. 8. There is moderate stenosis of the origin of the left vertebral artery. 9. 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 10. Additional findings as above. ACT 112: Negative or not required by law. Electronically signed by: Elliot Carolina M.D. 06/14/2022 5:38 PM Head CTA 06/14/22 16:[address] OF THE BRAIN; CT ANGIOGRAM OF THE BRAIN; CT ANGIOGRAM OF THE NECK CLINICAL HISTORY: Stroke like symptoms. COMPARISON STUDY: CT angiogram of the head and neck dated 01/30/2021. CT of the brain dated 07/22/2021. TECHNIQUE: Unenhanced axial CT scan of the brain is performed. Subsequently, following the IV administration of 108 of Optiray 320, CT angiogram of the head and neck was performed from the aortic arch to the vertex. Images are reviewed in the axial, sagittal, and coronal planes. 3-D MIPS images are created and assessed. IV contrast was administered without complication. All measurements were calculated based on NASCET criteria. A dose lowering technique was utiliz ed adhering to the principles of ALARA. CT DOSE: 1390.70 mGy.cm FINDINGS: Brain parenchyma: There is age-related involutional change noting advanced subcortical and periventricular microangiopathy disease. Chronic lacunar infarcts are noted in the thalami and right basal ganglia. There is no hemorrhage, mass effect, or evidence of acute territorial ischemia by CT criteria. There is no evidence of enhancing mass lesion on the angiogram phase images. The ventricles, sulci, and cisterns are normal in configuration. Woods- white matter differentiation is preserved. No extra-axial fluid collection is seen. Thoracic aorta: There is atherosclerotic calcification of the thoracic aorta. Visualized portions of the thoracic aorta are normal in caliber. The aortic arch demonstrates standard 3-vessel anatomy. Right carotid arterial system: The right common carotid artery is widely patent. The atherosclerotic plaque and irregularity. The right internal and external carotid arteries are widely patent. 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 This is unchanged from previous. Left carotid arterial system: There is advanced atherosclerotic plaque and irregularity seen through the left common carotid artery. There is moderate stenosis of the vessel distally seen on image #161. Advanced atherosclerotic nicolas que is seen within the carotid bulb and internal carotid artery. There is no evidence of sylvian stenosis involving the left ICA. 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 This is reconstituted at the level of C5. The distal vessel is patent to the skull base. There is moderate focal stenosis of the origin of the popliteal artery. The left vertebral artery is otherwise widely patent in the neck and dominant. The right vertebral artery is diminutive. Subclavian arteries: Patent bilaterally. Intracranial vasculature: There is atherosclerotic calcification of the cavernou s carotid and vertebral arteries. The internal carotid arteries are patent at the skull base, as are the anterior and middle cerebral arteries bilaterally. The vertebrobasilar system and posterior cerebral arteries are patent. The left vertebral artery is dominant. Postsurgical change is noted in the intracranial vertebral artery at the skull base. Aneurysm coils are noted adjacent to the left vertebral artery. A clip is also seen adjacent to the proximal basilar. 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 There is high-grade focal stenosis of the T1 segment of the right posterior cerebral artery. This is best seen on axial image #96. There is a right posterior commuting artery. There is moderate focal stenosis of the M2 segment of the left middle cerebral artery seen on image #94. Jugular veins: Patent bilaterally. A left internal jugular central venous infusion port is in place. Dural sinuses: Patent. Lung apices: Emphysema and fibrotic changes in the upper lobes. Soft tissues: The visualized pharyngeal soft tissues are normal in appearance noting angiographic phase technique. The oropharyngeal airway appears widely patent. The salivary and thyroid glands are normal in appearance. No cervical lymphadenopathy is seen. Skeletal structures: The skeletal structures are osteopenic. The calvarium appears intact. The cervical spine is maintained noting advanced multilevel spondylosis. Sclerotic change within the manubrium is consistent with bony metastatic disease. Orbits: The bony orbits are intact. Orbital contents are normal as visualized noting bilateral ocular lens implants. Sinuses and mastoids: The paranasal sinuses are clear. The mastoid air cells are well pneumatized. IMPRESSION: 1. There is no hemorrhage, mass effect, or evidence of acute territorial ischemia by CT criteria. 2. 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 This is unchanged. 3. There is high-grade focal stenosis at the origin of the right P1 segment. A focus of moderate stenosis is seen in the left middle cervical artery. 4. 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 These findings are similar to previous. 5. 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 This is unchanged from previous. 6. 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 This is unchanged. 7. There is moderate stenosis of the distal left common carotid artery. 8. There is moderate stenosis of the origin of the left vertebral artery. 9. 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 10. Additional findings as above. ACT 112: Negative or not required by law. Electronically signed by: Elliot Carolina M.D. 06/14/2022 5:38 PM Neck CTA 06/14/22 16:[address] OF THE BRAIN; CT ANGIOGRAM OF THE BRAIN; CT ANGIOGRAM OF THE NECK CLINICAL HISTORY: Stroke like symptoms. COMPARISON STUDY: CT angiogram of the head and neck dated 01/30/2021. CT of the brain dated 07/22/2021. TECHNIQUE: Unenhanced axial CT scan of the brain is performed. Subsequently, following the IV administration of 108 of Optiray 320, CT angiogram of the head and neck was performed from the aortic arch to the vertex. Images are reviewed in the axial, sagittal, and coronal planes. 3-D MIPS images are created and assessed. IV contrast was administered without complication. All measurements were calculated based on NASCET criteria. A dose lowering technique was utilized adhering to the principles of ALARA. CT DOSE: 1390.70 mGy.cm FINDINGS: Brain parenchyma: There is age-related involutional change noting advanced subcortical and periventricular microangiopathy disease. Chronic lacunar infarcts are noted in the thalami and right basal ganglia. There is no hemorrhage, mass effect, or evidence of acute territorial ischemia by CT criteria. There is no evidence of enhancing mass lesion on the angiogram phase images. The ventricles, sulci, and cisterns are normal in configuration. Woods- white matter differentiation is preserved. No extra-axial fluid collection is seen. Thoracic aorta: There is atherosclerotic calcification of the thoracic aorta. Visualized portions of the thoracic aorta are normal in caliber. The aortic arch demonstrates standard 3-vessel anatomy. Right carotid arterial system: The right common carotid artery is widely patent. The atherosclerotic plaque and irregularity. The right internal and external carotid arteries are widely patent. 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 This is unchanged from previous. Left carotid arterial system: There is advanced atherosclerotic plaque and irregularity seen through the left common carotid artery. There is moderate stenosis of the vessel distally seen on image #161. Advanced atherosclerotic plaque is seen within the carotid bulb and internal carotid artery. There is no evidence of sylvian stenosis involving the left ICA. 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 This is reconstituted at the level of C5. The distal vessel is patent to the skull base. There is moderate focal stenosis of the origin of the popliteal artery. The left vertebral artery is otherwise widely patent in the neck and dominant. The right vertebral artery is diminutive. Subclavian arteries: Patent bilaterally. Intracranial vasculature: There is atherosclerotic calcification of the cavernous carotid and vertebral arteries. The internal carotid arteries are patent at the skull base, as are the anterior and middle cerebral arteries bilaterally. The vertebrobasilar system and posterior cerebral arteries are patent. The left vertebral artery is dominant. Postsurgical change is noted in the intracranial vertebral artery at the skull base. Aneurysm coils are noted adjacent to the left vertebral artery. A clip is also seen adjacent to the proximal basilar. 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 There is high-grade focal stenosis of the T1 segment of the right posterior cerebral artery. This is best seen on axial image #96. There is a right posterior commuting artery. There is moderate focal stenosis of the M2 segment of the left middle cerebral artery seen on image #94. Jugular veins: Patent bilaterally. A left internal jugular central venous infusion port is in place. Dural sinuses: Patent. Lung apices: Emphysema and fibrotic changes in the upper lobes. Soft tissues: The visualized pharyngeal soft tissues are normal in appearance noting angiographic phase technique. The oropharyngeal airway appears widely patent. The salivary and thyroid glands are normal in appearance. No cervical lymphadenopathy is seen. Skeletal structures: The skeletal structures are osteopenic. The calvarium appears intact. The cervical spine is maintained noting advanced multilevel spondylosis. Sclerotic change within the manubrium is consistent with bony metastatic disease. Orbits: The bony orbits are intact. Orbital contents are normal as visualized noting bilateral ocular lens implants. Sinuses and mastoids: The paranasal sinuses are clear. The mastoid air cells are well pneumatized. IMPRESSION: 1. There is no hemorrhage, mass effect, or evidence of acute territorial ischemia by CT criteria. 2. 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 This is unchanged. 3. There is high-grade focal stenosis at the origin of the right P1 segment. A focus of moderate stenosis is seen in the left middle cervical artery. 4. 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 These findings are similar to previous. 5. 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 This is unchanged from previous. 6. 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 This is unchanged. 7. There is moderate stenosis of the distal left common carotid artery. 8. There is moderate stenosis of the origin of the left vertebral artery. 9. 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 10. Additional findings as above. ACT 112: Negative or not required by law. Electronically signed by: Elliot Carolina M.D. 06/14/2022 5:38 PM Discharge Plan Visit Data Chief Complaint: Stroke Alert ED Provider: Warren Villa Discharge Problem: Acute CVA (cerebrovascular accident) Patient Disposition: Being Evaluated by Hospitalist Forms Stand Alone Forms: [facility] [employer] Prescriptions Prescriptions: No Action Eliquis 5 mg tablet 5 mg PO BID rosuvastatin [Crestor] 20 mg tablet 20 mg PO HS Qty: 90 3RF (DME) Wheelchair (Powered) Device See Rx Instructions .Route Qty: 1 0RF Rx Instructions: "power mobility" (DME) Power Wheelchair Device See Rx Instructions .Route Qty: 1 0RF Rx Instructions: Evaluation for therapy power mobility (DME) OneTouch Ultra Test Strip See Rx Instructions .Route Qty: 300 1RF Rx Instructions: Test blood sugars TID (DME) diaper,brief,adult,disposable Misc See Rx Instructions .Route Qty: 60 5RF Rx Instructions: change when soiled - using 2 daily (DME) Underpads Regular Pad See Rx Instructions .Route Qty: 60 5RF Rx Instructions: change when soiled - using 2 daily vilazodone [Viibryd] 20 mg tablet 20 mg PO DAILY Qty: 90 3RF Rx Instructions: must administer with a meal/food (DME) Wheeled Walker Misc See Rx Instructions .Route Qty: 1 0RF Rx Instructions: As directed omeprazole 40 mg capsule,delayed release(DR/EC) 40 mg PO QAM Qty: 30 2RF alendronate 70 mg tablet 70 mg PO Q7D Rx Instructions: wednesdays lorazepam 0.5 mg tablet 0.5 mg PO TID PRN (Reason: Anxiety or muscle spasm) Qty: 30 0RF gabapentin 300 mg capsule See Rx Instructions .ROUTE .COMPLEX Rx Instructions: 300 mg orally; TAKES 300mg in am, 600mg HS hydrocodone-acetaminophen 5-325 mg tablet 1 - 2 tab PO DIRECTED PRN (Reason: Pain) Rx Instructions: 1-2 tabs every 4-6hrs as needed (DME) pen needle, diabetic [BD Pratima 2nd Gen Pen Needle] 32 gauge x 5/32" needle See Rx Instructions .Route Qty: 100 3RF Rx Instructions: Use with insulin pen for injection (DME) Baldomero Awan See Rx Instructions .Route .MEDSUPPLY Qty: 1 0RF Rx Instructions: As directed aspirin 81 mg tablet,chewable 81 mg PO QAM PreserVision Lutein 226 mg-200 unit -5 mg-0.8 mg Capsule 1 cap PO QAM anastrozole 1 mg tablet 1 mg PO QAM donepezil 5 mg tablet 10 mg PO HS metformin 500 mg tablet extended release 24 hr 500 mg PO HS levothyroxine 75 mcg tablet 75 mcg PO QAM insulin asp prt-insulin aspart [Novolog Mix 70-30FlexPen U-100] 100 unit/mL (70-30) insulin pen 60 unit SUBCUT BID Levemir FlexTouch U-100 Insuln 100 unit/mL (3 mL) insulin pen 50 unit SUBCUT QAM oxybutynin chloride 15 mg tablet extended release 24hr 15 mg PO QPM Referrals Referrals: Jennifer Ribera DO [Primary Care Provider] -
--- NOTE | 2022-06-14 19:02 | History & Physical Report ---
Date of Service June 14, 2022 Assessment & Plan (1) Stroke-like symptoms: Plan: - Presented with garbled speech and LL total weakness > LUE arm weakness, 5 hours out from [facility] on arriva. - Symptoms reportedly improved since arrival in ED, but still with aphasia, LUE and LLE weakness, numbness, ataxia; telestroke advising she is not a candidate for TNKase or thrombectomy. - CT head: There is no hemorrhage, mass effect, or evidence of acute territorial ischemia by CT criteria. 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 This is unchanged. * There is high-grade focal stenosis at the origin of the right P1 segment. A focus of moderate stenosis is seen in the left middle cervical artery. 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 These findings are similar to previous. 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 This is unchanged from previous. 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 This is unchanged. * There is moderate stenosis of the distal left common carotid artery. * There is moderate stenosis of the origin of the left vertebral artery. * Bony metastatic disease is seen in the manubrium of the sternum. - MRI, routine, tomorrow. - Echo in a.m. - CBC, BMP, HbA1c, lipid panel in a.m. - Patient passed bedside swallow screening. - PT, OT, ST to evaluate in a.m. - Allow for permissive hypertension - Avoid hypotension, hypoglycemia. - Already on statin, can increase dose. Telestroke did not give recommendations regarding antiplatelet therapy. Can consider switching ASA to Plavix, will defer decision to day team. - Telemetry for 24 hours, evaluate for episodes of atrial fibrillation. (2) Carotid artery stenosis: Plan: - On ASA, as well as Eliquis. Could consider switching ASA to Plavix. (3) Metastatic breast carcinoma: Plan: - Initial occurrence in 2009 with recurrence in 2020, mets to chest wall. - s/p wide local excision by surgery followed by radiation therapy and systemic therapy including hormonal therapy. - Continue anastrazole. (4) Diabetes mellitus type 2, uncontrolled: Plan: - BSG 165 on admit. - Continue basal insulin with SSI added on. - A1c in AM. (5) Chronic kidney disease, stage 3a: Plan: - Cr 1.26, appears to be about baseline. - Avoid nephrotoxins, renally dose medications as able. (6) Hyperlipidemia: Plan: - Continue statin, consider increasing dose. (7) Atrial tachycardia: Plan: - Per cardiology 05/15/22: She has had episodes of what appear to be atrial tachycardia. She also had an episode that the device logged as atrial fibrillation, but it appeared to actually be a normal rhythm with frequent ectopy. No true atrial fibrillation identified. Patient is asymptomatic. - Chronically anticoagulated with Eliquis for secondary CVA prevention. (8) CLL (chronic lymphocytic leukemia): Plan: - Continued observation. (9) Chronic obstructive pulmonary disease: Plan: - No evidence of acute exacerbation. - Continue home inhalers. (10) PA (obstructive sleep apnea): Plan: - Noncompliant/intolerant of CPAP. Plan - Admit to PCU. - SCDs, continue Eliquis for VTE ppx. - DNR/DNI. History of Present Illness Chief Complaint: stroke alert Primary Care Provider: DO Sharon Wagner Don is an 81-year-old female with a past medical history significant for prior CVA, atrial tachycardia, LVOT obstruction, breast cancer, CLL, COPD, PA intolerant to CPAP, DM2, CKD 3, hyperlipidemia, urinary incontinence, depression, and hypothyroidism is presenting today as a stroke alert. Patient's last known well was noon today. Later in the afternoon, patient was noted to have garbled speech, total weakness of left leg and noticeable weakness and left arm. She is brought in by EMS without family, BSG 200s in the field, BP on presentation 145/61, now slightly more hypertensive 185/81. Since presentation, her symptoms to start resolved. She is moving both left arm and leg better and is able to communicate in full sentences. Labs notable for white count of 11 with left shift, creatinine 1.26, baseline. Glucose 165. Without electrolyte abnormalities, troponin 10.9, no transaminitis. UA does not appear infected, negative for COVID. 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 This is unchanged. There is high-grade focal stenosis at the origin of the right P1 segment. A focus of moderate stenosis is seen in the left middle cervical artery. 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 These findings are similar to previous. 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 This is unchanged from previous. 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 This is unchanged. There is moderate stenosis of the distal left common carotid artery. There is moderate stenosis of the origin of the left vertebral artery. 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 Allergies Allergy/AdvReac Type Severity Reaction Status Date / Time adhesive Allergy Intermediate BLISTERS Verified 06/14/22 17:50 amitriptyline AdvReac Intermediate HALLUCINATI Verified 06/14/22 17:50 ONS atorvastatin AdvReac Intermediate JOINT PAIN Verified 06/14/22 17:50 cephalexin AdvReac Intermediate N/V Verified 06/14/22 17:50 codeine AdvReac Intermediate NAUSEA AND Verified 06/14/22 17:50 VOMITING doxycycline AdvReac Intermediate GI SYMPTOMS Verified 06/14/22 17:50 hydroxychloroquine AdvReac Intermediate Diarrhea Verified 06/14/22 17:50 [From Plaquenil] liraglutide AdvReac Intermediate GI UPSET Verified 06/14/22 17:50 phenol AdvReac Intermediate GI UPSET Verified 06/14/22 17:50 pioglitazone AdvReac Intermediate SEVERE Verified 06/14/22 17:50 FATIGUE tramadol AdvReac Intermediate N/V Verified 06/14/22 17:50 zoster vaccine live AdvReac Unknown Unknown Verified 06/14/22 17:50 [From Zostavax (PF)] Home Medications Medication Instructions Recorded Confirmed Type vit C 226 mg-vit E 90 mg-copper 1 cap PO QAM 09/04/18 06/14/22 History 0.8 mg-zinc oxide-lutein 5 mg capsule (PreserVision Lutein) aspirin 81 mg chewable tablet 81 mg PO QAM 01/21/19 06/14/22 History anastrozole 1 mg tablet 1 mg PO QAM 01/19/21 06/14/22 History rosuvastatin 20 mg tablet (Crestor) 20 mg PO HS #90 tabs 02/07/21 06/14/22 Rx apixaban 5 mg tablet (Eliquis) 5 mg PO BID 05/05/21 06/14/22 History Wheelchair (Powered) #1 ea 08/04/21 06/12/22 Rx alendronate 70 mg tablet 70 mg PO Q7D 08/26/21 06/14/22 History Wheelchair (Powered) (Power #1 ea 09/08/21 06/12/22 Rx Wheelchair) pen needle, diabetic 32 gauge x #100 ea 09/26/21 06/12/22 Rx 5/32" (BD Pratima 2nd Gen Pen Needle) lorazepam 0.5 mg tablet 0.5 mg PO TID PRN Anxiety or 12/04/21 06/14/22 Rx muscle spasm #30 tabs blood sugar diagnostic (OneTouch #300 ea 12/21/21 06/12/22 Rx Ultra Test strips) donepezil 5 mg tablet 10 mg PO HS 02/02/22 06/14/22 History diaper,brief,adult,disposable #60 ea 05/24/22 06/12/22 Rx incontinence pad, liner, disp #60 ea 05/24/22 06/12/22 Rx (Underpads Regular) vilazodone 20 mg tablet (Viibryd) 20 mg PO DAILY #90 tabs 05/24/22 06/14/22 Rx AFO brace, L #1 ea 05/26/22 06/12/22 Rx Wheeled Walker #1 ea 06/08/22 06/12/22 Rx gabapentin 300 mg capsule See Rx Instructions .Route .COMPLEX 06/12/22 06/14/22 History hydrocodone 5 mg-acetaminophen 325 1 - 2 tab PO DIRECTED PRN Pain 06/12/22 06/14/22 History mg tablet metformin 500 mg tablet,extended 500 mg PO HS 06/12/22 06/14/22 History release 24 hr omeprazole 40 mg capsule,delayed 40 mg PO QAM #30 caps 06/12/22 06/14/22 Rx release insulin aspar prot-insulin aspart 60 unit subcut BID 06/14/22 06/14/22 History 100 unit/mL (70-30) subcutaneous pen (Novolog Mix 70-30FlexPen U-100) insulin detemir U-100 100 unit/mL 50 unit subcut QAM 06/14/22 06/14/22 History (3 mL) subcutaneous pen (Levemir FlexTouch U-100 Insulin) levothyroxine 75 mcg tablet 75 mcg PO QAM 06/14/22 06/14/22 History oxybutynin chloride 15 mg 15 mg PO QPM 06/14/22 06/14/22 History tablet,extended release 24 hr Past Med/Surg History Medical History Aneurysm, cerebral, nonruptured LV4 aneurysm treated with stent/coil 2016 Per 01/30/21 Head CTA = No change in a 4 mm saccular aneurysm of the distal rig ht middle cerebral artery and a 2 mm basilar artery aneurysm. Anxiety Asthma well controlled per pt > no inhalers Atrial aneurysm Atrial fib/flutter, transient Follows [facility] > no cardioversions Loop recorder in place - [employer]- placed 09/05/18 Breast cancer DX in 2009> bilat mastectomy >no chemo Recently diagnosed with metastatic right breast carcinoma 08/13/20 Carotid artery stenosis Follows with [facility]. S/p CEA years ago Per 01/30/21 neck CTA- severe stenosis at origin of left vertebral artery. Occlusion of the proximal to mid right vertebral artery with distal reconstitution. Stable 5 mm outpouching of the proximal right internal carotid artery with possible associated short segment dissection, unchanged. Moderate atherosclerotic plaque with the major vessels of the neck Central stenosis of spinal canal Chronic kidney disease, stage 3a Chronic obstructive pulmonary disease Cirrhosis CLL (chronic lymphocytic leukemia) Coronary artery calcification Based on calcified coronary arteries on CT Scan Abd/Pelvis 08/03/20 Deep vein thrombosis several yrs ago> left leg > caused from control pills Depression Diabetes mellitus type 2, uncontrolled IDDM Diabetic nephropathy Gastroesophageal reflux disease History of COVID-19 (~05/2021) jul or august 2021, pcr test mn, admitted w/stroke, tested while in hospital- found to be covid +=in hospital for 3 weeks for stroke and covid>resolved. Hx of sleep apnea waiting on new cpap Hyperlipidemia Hypertension Hypothyroidism Left hemiparesis From stroke in November 2019>uses walker or wheelchair due to weakness Left ventricular outflow tract obstruction Lumbar radiculopathy Lumbar spinal stenosis Lumbar stenosis with neurogenic claudication Nonalcoholic steatohepatitis Osteopenia Polycythemia Recurrent cancer of right breast (08/13/20) Initially diagnosed 2009- s/p bilateral mastectomy recurrence to chest wall s/p XRT 07/2020 Sensorineural hearing loss (SNHL) of both ears Short-term memory loss Stroke December 05, 2019 > [facility] > has short term memory loss as result > left side weakness TIA (transient ischemic attack) Jan 2021 TMJ syndrome "don't have it all them time, just clicks, no locking" Urinary frequency Vertebral artery stenosis Per 01/30/21 neck CTA- severe stenosis at origin of left vertebral artery. Occlusion of the proximal to mid right vertebral artery with distal reconstitution. Stable 5 mm outpouching of the proximal right internal carotid artery with possible associated short segment dissection, unchanged. Moderate atherosclerotic plaque with the major vessels of the neck Surgical History H/O varicose vein ligation and stripping left leg History of appendectomy History of brain surgery Cerebral angiogram and stent-assisted coil embolization of the It PICA aneurysm. 12/22/2015 > follows with [facility] History of breast lump/mass excision History of carotid endarterectomy Right side per records Over 6 yrs ago > [facility] History of cataract surgery Right: July 2012 Left: August 2012 History of colonoscopy History of hysterectomy Ovaries intact History of mastectomy bilateral September 2009 History of parathyroid surgery Excision of benign neoplasm History of shoulder surgery Right shoulder arthroscopic labral debridement, subacromial decompression, and acromioplasty excision distal clavicle, biceps tenotomy. 06/15/2014 History of total knee replacement left 01/11/2012 Hx of excision of mass from chest wall > right side > radiation now complete Hx of tonsillectomy Port-A-Cath in place (02/22/22) Insertion Access Port with Fluoroscopy to left internal jugular vein (Left) - Joseph Ingram, , FACS Family History Grandmother No problems noted. Father , in his 50s of lung cancer Lung disease Lung cancer Mother , in her 70s of cancer Cancer Hypertension Unknown , Niece at 37 Colon cancer Son Anxiety Depression Kidney stones Alcohol abuse Grandmother (Maternal) Lung cancer Sister COPD (chronic obstructive pulmonary disease) Son MVA (motor vehicle accident) Son Rheumatic fever Daughter Medical history unknown Denies family history of Ovarian cancer Prostate cancer Myocardial infarction Breast cancer Bleeding disorder Social History Smoking Status: Former smoker Tobacco Type: Cigarettes Age Started Using Tobacco: 16; Cigarettes Per Day: 1-2; Second Hand Exposure: Yes (); Hx Alcohol Use: No Hx Substance Use: No Preferred Language: Icelandic Communication Ability: Effective Visual Impairment: No Limitations Hearing Ability: Normal Sat Tutor Required: No Beliefs That Will Affect Care: None marital status: Current Living Situation: Spouse current occupational status: retired 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 [employer] How many Children do You have: 4 How many Children do You have Comment: Pregnancies:6 Children:4 :1 Other Information That Helps Us Care for You: No Feels Safe at Home: Yes Safety Concerns: Feels Safe At This Time Childhood Exposure to Second-Hand Smoke: Yes caffeine: Yes during the past year weight has: remained stable Dental Care, Regularly: No Physical Activity Frequency: Does not Exercise Seatbelt Use: never Assistive Devices: Walker Review of Systems Review of Systems: Unobtainable due to cognitive status ROS somewhat limited to aphasia but patient complains of headache, numbness in left arm and leg Physical Exam Physical Exam: General: awake, alert, no apparent distress Head: Normocephalic, atraumatic ENT: PERRL, EOMI, no pharyngeal exudate, mucous membranes moist Chest: Clear to auscultation, on room air, no adventitious breath sounds Cardiac: Regular rate and rhythm, no murmur, no JVD, normal peripheral pulses, good capillary refill Abdominal: NABS x 4 quadrants, soft, nontender to palpation, no rebound, guarding or tenderness Extremities: Normal inspection, no peripheral edema or erythema, calfs nontender to palpation Psych: Normal mood and affect Neuro: aphasic with some slurred speech, can only speak 3-4 words/time, decreased sensation in LUE and LLE, can lift all extremities but with drift, limited mobility in LUE and LLE, ataxia in LLE and LUE; AAO x 3 Skin: no rash or erythema Results & Data Results & Data ([facility]) Vital Signs (Past 12 Hours) Vital Signs Temp Pulse Resp BP Pulse Ox O2 Del Method O2 Flow Rate 06/14/22 18:30 80 16 185/81 H 94 Room Air 06/14/22 18:16 81 16 153/72 H 94 Room Air 06/14/22 18:00 79 18 182/86 H 98 Nasal Cannula 2 06/14/22 17:34 86 20 145/61 H 98 Nasal Cannula 2 06/14/22 18:13 36.9 C 06/14/22 18:13 100 Nasal Cannula 2 06/14/22 17:15 84 18 145/61 H 98 Nasal Cannula 2 Laboratory Results Abnormal lab results 06/14/22 06/14/22 06/14/22 Range/Units 17:00 17:00 17:39 WBC 11.46 H (4.8-10.8) K/ul MCHC 31.1 L (32.0-36.0) g/dL RDW Std Deviation 48.7 H (36.4-46.3) fL RDW Coeff of [place] 15.8 H (11.5-14.5) % Neut # (Auto) 7.70 H (1.4-6.5) K/uL [place] # (Auto) 0.86 H (0.24-0.82) K/uL Immature Gran # (Auto) 0.04 H (0.00-0.02) K/uL Chloride 108 H (98-107) mmol/L Creatinine 1.26 H (0.6-1.2) mg/dl Glucose 165 H (70-99(Fasting)) mg/dl POC Glucose 169 H (70-99) mg/dl Urine Blood (Negative) U Epithel Cells (Auto) (0-5) /lpf 06/14/22 Range/Units 18:00 WBC (4.8-10.8) K/ul MCHC (32.0-36.0) g/dL RDW Std Deviation (36.4-46.3) fL RDW Coeff of [place] (11.5-14.5) % Neut # (Auto) (1.4-6.5) K/uL [place] # (Auto) (0.24-0.82) K/uL Immature Gran # (Auto) (0.00-0.02) K/uL Chloride (98-107) mmol/L Creatinine (0.6-1.2) mg/dl Glucose (70-99(Fasting)) mg/dl POC Glucose (70-99) mg/dl Urine Blood Trace H (Negative) U Epithel Cells (Auto) 5-10 H (0-5) /lpf Diagnostic Findings Chest X-Ray 06/14/22 16:43 XR chest 1V portable HISTORY: neuro deficit, acute stroke suspected COMPARISON: Chest 02/22/2022. FINDINGS: No pneumothorax. The cardiac silhouette remains mildly enlarged. Left- sided jugular Port-A-Cath which terminates at the superior cavoatrial junction. This remains unchanged. No pleural effusions. No new focal lung consolidations. There is a healing/healed left humeral neck fracture. Scattered linear densities persist and favor scarring/atelectasis. IMPRESSION: No significant change compared to the prior study. No acute process. ACT 112: Negative or not required by law. Electronically signed by: Robles Hurst M.D. 06/14/2022 6:[address] 06/14/22 16:[address] OF THE BRAIN; CT ANGIOGRAM OF THE BRAIN; CT ANGIOGRAM OF THE NECK CLINICAL HISTORY: Stroke like symptoms. COMPARISON STUDY: CT angiogram of the head and neck dated 01/30/2021. CT of the brain dated 07/22/2021. TECHNIQUE: Unenhanced axial CT scan of the brain is performed. Subsequently, following the IV administration of 108 of Optiray 320, CT angiogram of the head and neck was performed from the aortic arch to the vertex. Images are reviewed in the axial, sagittal, and coronal planes. 3-D MIPS images are created and assessed. IV contrast was administered without complication. All measurements were calculated based on NASCET criteria. A dose lowering technique was utilized adhering to the principles of ALARA. CT DOSE: 1390.70 mGy.cm FINDINGS: Brain parenchyma: There is age-related involutional change noting advanced subcortical and periventricular microangiopathy disease. Chronic lacunar infarcts are noted in the thalami and right basal ganglia. There is no hemorrhage, mass effect, or evidence of acute territorial ischemia by CT criteria. There is no evidence of enhancing mass lesion on the angiogram phase images. The ventricles, sulci, and cisterns are normal in configuration. Woods- white matter differentiation is preserved. No extra-axial fluid collection is seen. Thoracic aorta: There is atherosclerotic calcification of the thoracic aorta. Visualized portions of the thoracic aorta are normal in caliber. The aortic arch demonstrates standard 3-vessel anatomy. Right carotid arterial system: The right common carotid artery is widely patent. The atherosclerotic plaque and irregularity. The right internal and external carotid arteries are widely patent. 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 This is unchanged from previous. Left carotid arterial system: There is advanced atherosclerotic plaque and irregularity seen through the left common carotid artery. There is moderate stenosis of the vessel distally seen on image #161. Advanced atherosclerotic plaque is seen within the carotid bulb and internal carotid artery. There is no evidence of sylvian stenosis involving the left ICA. 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 This is reconstituted at the level of C5. The distal vessel is patent to the skull base. There is moderate focal stenosis of the origin of the popliteal artery. The left vertebral artery is otherwise widely patent in the neck and dominant. The right vertebral artery is diminutive. Subclavian arteries: Patent bilaterally. Intracranial vasculature: There is atherosclerotic calcification of the cavernous carotid and vertebral arteries. The internal carotid arteries are patent at the skull base, as are the anterior and middle cerebral arteries bilaterally. The vertebrobasilar system and posterior cerebral arteries are patent. The left vertebral artery is dominant. Postsurgical change is noted in the intracranial vertebral artery at the skull base. Aneurysm coils are noted adjacent to the left vertebral artery. A clip is also seen adjacent to the proximal basilar. 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 There is high-grade focal stenosis of the T1 segment of the right posterior cerebral artery. This is best seen on axial image #96. There is a right posterior commuting artery. There is moderate focal stenosis of the M2 segment of the left middle cerebral artery seen on image #94. Jugular veins: Patent bilaterally. A left internal jugular central venous infusion port is in place. Dural sinuses: Patent. Lung apices: Emphysema and fibrotic changes in the upper lobes. Soft tissues: The visualized pharyngeal soft tissues are normal in appearance noting angiographic phase technique. The oropharyngeal airway appears widely patent. The salivary and thyroid glands are normal in appearance. No cervical lymphadenopathy is seen. Skeletal structures: The skeletal structures are osteopenic. The calvarium appears intact. The cervical spine is maintained noting advanced multilevel spondylosis. Sclerotic change within the manubrium is consistent with bony metastatic disease. Orbits: The bony orbits are intact. Orbital contents are normal as visualized noting bilateral ocular lens implants. Sinuses and mastoids: The paranasal sinuses are clear. The mastoid air cells are well pneumatized. IMPRESSION: 1. There is no hemorrhage, mass effect, or evidence of acute territorial ischemia by CT criteria. 2. 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 This is unchanged. 3. There is high-grade focal stenosis at the origin of the right P1 segment. A focus of moderate stenosis is seen in the left middle cervical artery. 4. 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 These findings are similar to previous. 5. 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 This is unchanged from previous. 6. 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 This is unchanged. 7. There is moderate stenosis of the distal left common carotid artery. 8. There is moderate stenosis of the origin of the left vertebral artery. 9. 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 10. Additional findings as above. ACT 112: Negative or not required by law. Electronically signed by: Elliot Carolina M.D. 06/14/2022 5:38 PM Head CTA 06/14/22 16:[address] OF THE BRAIN; CT ANGIOGRAM OF THE BRAIN; CT ANGIOGRAM OF THE NECK CLINICAL HISTORY: Stroke like symptoms. COMPARISON STUDY: CT angiogram of the head and neck dated 01/30/2021. CT of the brain dated 07/22/2021. TECHNIQUE: Unenhanced axial CT scan of the brain is performed. Subsequently, following the IV administration of 108 of Optiray 320, CT angiogram of the head and neck was performed from the aortic arch to the vertex. Images are reviewed in the axial, sagittal, and coronal planes. 3-D MIPS images are created and assessed. IV contrast was administered without complication. All measurements were calculated based on NASCET criteria. A dose lowering technique was utilized adhering to the principles of ALARA. CT DOSE: 1390.70 mGy.cm FINDINGS: Brain parenchyma: There is age-related involutional change noting advanced subcortical and periventricular microangiopathy disease. Chronic lacunar infarcts are noted in the thalami and right basal ganglia. There is no hemorrhage, mass effect, or evidence of acute territorial ischemia by CT criteria. There is no evidence of enhancing mass lesion on the angiogram phase images. The ventricles, sulci, and cisterns are normal in configuration. Woods- white matter differentiation is preserved. No extra-axial fluid collection is seen. Thoracic aorta: There is atherosclerotic calcification of the thoracic aorta. Vi sualized portions of the thoracic aorta are normal in caliber. The aortic arch demonstrates standard 3-vessel anatomy. Right carotid arterial system: The right common carotid artery is widely patent. The atherosclerotic plaque and irregularity. The right internal and external carotid arteries are widely patent. 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 This is unchanged from previous. Left carotid arterial system: There is advanced atherosclerotic plaque and irregularity seen through the left common carotid artery. There is moderate stenosis of the vessel distally seen on image #161. Advanced atherosclerotic plaque is seen within the carotid bulb and internal carotid artery. There is no evidence of sylvian stenosis involving the left ICA. 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 This is reconstituted at the level of C5. The distal vessel is patent to the skull base. There is moderate focal stenosis of the origin of the popliteal artery. The left vertebral artery is otherwise widely patent in the neck and dominant. The right vertebral artery is diminutive. Subclavian arteries: Patent bilaterally. Intracranial vasculature: There is atherosclerotic calcification of the cavernous carotid and vertebral arteries. The internal carotid arteries are patent at the skull base, as are the anterior and middle cerebral arteries bilaterally. The vertebrobasilar system and posterior cerebral arteries are patent. The left vertebral artery is dominant. Postsurgical change is noted in the intracranial vertebral artery at the skull base. Aneurysm coils are noted adjacent to the left vertebral artery. A clip is also seen adjacent to the proximal basilar. 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 There is high-grade focal stenosis of the T1 segment of the right posterior cerebral artery. This is best seen on axial image #96. There is a right posterior commuting artery. There is moderate focal stenosis of the M2 segment of the left middle cerebral artery seen on image #94. Jugular veins: Patent bilaterally. A left internal jugular central venous infusion port is in place. Dural sinuses: Patent. Lung apices: Emphysema and fibrotic changes in the upper lobes. Soft tissues: The visualized pharyngeal soft tissues are normal in appearance noting angiographic phase technique. The oropharyngeal airway appears widely patent. The salivary and thyroid glands are normal in appearance. No cervical lymphadenopathy is seen. Skeletal structures: The skeletal structures are osteopenic. The calvarium appears intact. The cervical spine is maintained noting advanced multilevel spondylosis. Sclerotic change within the manubrium is consistent with bony metastatic disease. Orbits: The bony orbits are intact. Orbital contents are normal as visualized noting bilateral ocular lens implants. Sinuses and mastoids: The paranasal sinuses are clear. The mastoid air cells are well pneumatized. IMPRESSION: 1. There is no hemorrhage, mass effect, or evidence of acute territorial ischemia by CT criteria. 2. 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 This is unchanged. 3. There is high-grade focal stenosis at the origin of the right P1 segment. A focus of moderate stenosis is seen in the left middle cervical artery. 4. 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 These findings are similar to previous. 5. 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 This is unchanged from previous. 6. 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 This is unchanged. 7. There is moderate stenosis of the distal left common carotid artery. 8. There is moderate stenosis of the origin of the left vertebral artery. 9. 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 10. Additional findings as above. ACT 112: Negative or not required by law. Electronically signed by: Elliot Carolina M.D. 06/14/2022 5:38 PM Neck CTA 06/14/22 16:[address] OF THE BRAIN; CT ANGIOGRAM OF THE BRAIN; CT ANGIOGRAM OF THE NECK CLINICAL HISTORY: Stroke like symptoms. COMPARISON STUDY: CT angiogram of the head and neck dated 01/30/2021. CT of the brain dated 07/22/2021. TECHNIQUE: Unenhanced axial CT scan of the brain is performed. Subsequently, following the IV administration of 108 of Optiray 320, CT angiogram of the head and neck was performed from the aortic arch to the vertex. Images are reviewed in the axial, sagittal, and coronal planes. 3-D MIPS images are created and assessed. IV contrast was administered without complication. All measurements were calculated based on NASCET criteria. A dose lowering technique was utilized adhering to the principles of ALARA. CT DOSE: 1390.70 mGy.cm FINDINGS: Brain parenchyma: There is age-related involutional change noting advanced subcortical and periventricular microangiopathy disease. Chronic lacunar infarcts are noted in the thalami and right basal ganglia. There is no hemorrhage, mass effect, or evidence of acute territorial ischemia by CT c riteria. There is no evidence of enhancing mass lesion on the angiogram phase images. The ventricles, sulci, and cisterns are normal in configuration. Woods- white matter differentiation is preserved. No extra-axial fluid collection is seen. Thoracic aorta: There is atherosclerotic calcification of the thoracic aorta. Visualized portions of the thoracic aorta are normal in caliber. The aortic arch demonstrates standard 3-vessel anatomy. Right carotid arterial system: The right common carotid artery is widely patent. The atherosclerotic plaque and irregularity. The right internal and external carotid arteries are widely patent. 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 This is unchanged from previous. Left carotid arterial system: There is advanced atherosclerotic plaque and irregularity seen through the left common carotid artery. There is moderate stenosis of the vessel distally seen on image #161. Advanced atherosclerotic plaque is seen within the carotid bulb and internal carotid artery. There is no evidence of sylvian stenosis involving the left ICA. 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 This is reconstituted at the level of C5. The distal vessel is patent to the skull base. There is moderate focal stenosis of the origin of the popliteal artery. The left vertebral artery is otherwise widely patent in the neck and dominant. The right vertebral artery is diminutive. Subclavian arteries: Patent bilaterally. Intracranial vasculature: There is atherosclerotic calcification of the cavernous carotid and vertebral arteries. The internal carotid arteries are patent at the skull base, as are the anterior and middle cerebral arteries bilaterally. The vertebrobasilar system and posterior cerebral arteries are patent. The left vertebral artery is dominant. Postsurgical change is noted in the intracranial vertebral artery at the skull base. Aneurysm coils are noted adjacent to the left vertebral artery. A clip is also seen adjacent to the proximal basilar. 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 There is high-grade focal stenosis of the T1 segment of the right posterior cerebral artery. This is best seen on axial image #96. There is a right posterior commuting artery. There is moderate focal stenosis of the M2 segment of the left middle cerebral artery seen on image #94. Jugular veins: Patent bilaterally. A left internal jugular central venous infusion port is in place. Dural sinuses: Patent. Lung apices: Emphysema and fibrotic changes in the upper lobes. Soft tissues: The visualized pharyngeal soft tissues are normal in appearance noting angiographic phase technique. The oropharyngeal airway appears widely patent. The salivary and thyroid glands are normal in appearance. No cervical lymphadenopathy is seen. Skeletal structures: The skeletal structures are osteopenic. The calvarium appears intact. The cervical spine is maintained noting advanced multilevel spondylosis. Sclerotic change within the manubrium is consistent with bony metastatic disease. Orbits: The bony orbits are intact. Orbital contents are normal as visualized noting bilateral ocular lens implants. Sinuses and mastoids: The paranasal sinuses are clear. The mastoid air cells are well pneumatized. IMPRESSION: 1. There is no hemorrhage, mass effect, or evidence of acute territorial ischemia by CT criteria. 2. 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 This is unchanged. 3. There is high-grade focal stenosis at the origin of the right P1 segment. A focus of moderate stenosis is seen in the left middle cervical artery. 4. 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 These findings are similar to previous. 5. 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 This is unchanged from previous. 6. 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 This is unchanged. 7. There is moderate stenosis of the distal left common carotid artery. 8. There is moderate stenosis of the origin of the left vertebral artery. 9. 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 10. Additional findings as above. ACT 112: Negative or not required by law. Electronically signed by: Elliot Carolina M.D. 06/14/2022 5:38 PM ECG Additional Comments: Accelerated Junctional rhythm Low voltage QRS Nonspecific T wave abnormality Prolonged QT Abnormal ECG When compared with ECG of 22-JUL-2021 14:14, Junctional rhythm has replaced Sinus rhythm Criteria for Inferior infarct are no longer Present Nonspecific T wave abnormality now evident in Inferior leads Nonspecific T wave abnormality, worse in Lateral leads. Code Status & VTE Plan Code Status DNR/DNI. Supervising Physician Co-Signing Physician Notes Attending addendum: I have physically seen this patient, have supervised the AVINASH's activities, and agree with the H&P unless as otherwise noted. 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 unchanged 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 is unchanged Moderate stenosis of the distal left common carotid artery, origin of the left vertebral artery unchanged Bony metastatic disease in the manubrium of the sternum Order MRI brain, echocardiogram, CBC with differential, chemistry profile, hemoglobin A1c and fasting lipid panel Consult PT/OT/speech therapy Permissive hypertension Stroke without tPA order set Metastatic breast cancer- Continue anastrozole Diabetes mellitus- Sliding scale insulin Check hemoglobin A1c Hyperlipidemia- Continue statin high-dose Remaining orders and notations as noted PG Care Time/CCT Total # of Minutes Spent Total Time Spent with Patient: Total time spent is greater than 50% in coordination of care (as documented) at patient's floor/unit and/or counseling patient: Coding Level of Care Code 87643 INT INP/OBS CARE 3/75MIN Diagnoses Stroke-like symptoms R29.90 Carotid artery stenosis I65.29 Metastatic breast carcinoma C50.919 Diabetes mellitus type 2, uncontrolled E11.65 Coma presence: without coma Chronic kidney disease, stage 3a N18.31 Hyperlipidemia E78.2 Hyperlipidemia type: mixed hyperlipidemia Atrial tachycardia I47.1 CLL (chronic lymphocytic leukemia) C91.10 Chronic obstructive pulmonary disease J44.9 COPD type: unspecified COPD PA (obstructive sleep apnea) G47.33 (1) Hyperlipidemia Hyperlipidemia type: mixed hyperlipidemia Qualified Code(s): E78.2 - Mixed hy perlipidemia (2) Diabetes mellitus type 2, uncontrolled Coma presence: without coma (3) Chronic obstructive pulmonary disease COPD type: unspecified COPD Qualified Code(s): J44.9 - Chronic obstructive pulmonary disease, unspecified
[2022-06-14] MEDS ORDERED: ACETAMINOPHEN 325 MG TAB PO STA (19:58)
[2022-06-14] MEDS ORDERED: ONDANSETRON INJ 2 MG/ML 2 ML VIAL IV PRN (21:39)
[2022-06-14] MEDS ORDERED: PHARMACIST DISCHARGE MED REC CONSULT PRN (21:39)
[2022-06-14] MEDS ORDERED: DEXTROSE 50% 50 ML SYRINGE IV PRN (21:39)
[2022-06-14] MEDS ORDERED: GLUCAGON FOR INJ 1 MG VIAL SQ PRN (21:39)
[2022-06-14] MEDS ORDERED: CARBOHYDRATES FOR HYPOGLYCEMIA PO PRN (21:39)
[2022-06-14] MEDS ORDERED: GLUCOSE 40% GEL 15 GM TUBE PO PRN (21:39)
[2022-06-14] MEDS ORDERED: GLUCOSE 10 TAB/TUBE PO PRN (21:39)
[2022-06-14] MEDS ORDERED: LORazepam 0.5 MG TAB PO STA (22:54)
[2022-06-14] MEDS: GABAPENTIN 300 MG CAP PO SCH (23:45)
[2022-06-14] MEDS: APIXABAN 5 MG TABLET PO SCH (23:46)
[2022-06-14] MEDS: OXYBUTYNIN CHLORIDE XL 5 MG TABCR PO SCH (23:47)
[2022-06-14] MEDS: ROSUVASTATIN CALCIUM 20 MG TAB PO SCH (23:47)
[2022-06-14] MEDS: DONEPEZIL HCL 10 MG TAB PO SCH (23:47)
[2022-06-14] MEDS: INSULIN ASPART PER UNIT SC SCH (23:48)
[2022-06-15 05:59] LABS: Basophils # (auto) 0.02 K/uL (0-0.2); Basophils % (auto) 0.2 %; Eosinophils # (auto) 0.41 K/uL (0-0.50); Eosinophils % (auto) 4.2 %; Hematocrit (blood only) 38.6 % (34.1-44.9); Hemoglobin 11.8 g/dl (12.0-16.0); Immature Granulocytes # (auto) 0.02 K/uL (0.00-0.02); Immature Granulocytes % (auto) 0.2 %; Lymphocytes # (auto) 2.56 K/uL (1.2-3.4); Lymphocytes % (auto) 26.2 %; Mean Corpuscular Hgb Conc 30.6 g/dL (32.0-36.0); Mean Corpuscular Volume 85.2 fL (80.0-100.0); Monocytes # (auto) 0.85 K/uL (0.24-0.82); Monocytes % (auto) 8.7 %; Neutrophils % (auto) 60.5 %; Platelet Count 346 K/uL (130-400); RDW Coefficient of Variation 15.7 % (11.5-14.5); RDW Standard Deviation 47.8 fL (36.4-46.3); Red Blood Count 4.53 M/uL (3.93-5.22); White Blood Count 9.76 K/ul (4.8-10.8)
[2022-06-15 06:20] LABS: Estimated Average Glucose 177 mg/dl; Hemoglobin A1C 7.8 % (4.5-5.6)
[2022-06-15] MEDS: LEVOTHYROXINE SODIUM 75 MCG TABLET PO SCH (06:22)
[2022-06-15 06:26] LABS: Calcium 8.5 mg/dl (8.5-10.1); Potassium 4.4 mmol/L (3.5-5.1)
[2022-06-15 06:31] LABS: BUN Creatinine Ratio 13.6 (10-20); Chol HDL Ratio 2.7 (0-5); Creatinine Clr Calc Pharmacy 36.5 ml/min; Est GFR (African American) 50.1 ml/min; Est GFR (Non-African American) 43.2 ml/min
--- NOTE | 2022-06-15 07:34 | CT Scan Report ---
CT head/brain wo con CLINICAL HISTORY: 81 years-old Female with c/f right brain stroke. Acute strokelike symptoms TECHNIQUE: Multiple axial CT images of the head were obtained without contrast. A dose lowering tech nique was utilized adhering to the principles of ALARA. CT DOSE: 537.48 mGy.cm COMPARISON: None. FINDINGS: No acute intracranial hemorrhage, midline shift, intracranial mass, hydrocephalus, territorial ischem ia or abnormal extra-axial collection. Involutional changes with chronic microvascular ischemic disea se. Cerebral vascular calcifications. Artifact from metallic density focus within the prepontine cist smita. Chronic lacunar infarcts of the basal ganglia. The calvarium is intact. Prior bilateral lens repair. The paranasal sinuses, mastoid air cells, and m iddle ear cavities are clear. IMPRESSION: No acute intracranial abnormality. ACT 112: Negative or not required by law. The above report was generated using voice recognition software. It may contain grammatical, syntax o r spelling errors. Electronically signed by: Thang Cortez M.D. 06/15/2022 7:32 AM
--- NOTE | 2022-06-15 07:42 | Communication Note ---
Date of Service: June 15, 2022 Was notified this morning by nurse about pronounced facial droop, and left-sided weakness vs overnight. Did not assess patient on admission but reassessed patient this morning. Did not appear to have left facial droop. Patient did appear dysarthric with what looks like Broca's aphasia. 3+/5 left-sided weakness in upper and lower extremity. Directed nurse to call stroke alert and ordered CT had without contrast. Signed outpatient to daytime hospitalist, Dr. Puente. Resident Activity Tracking Resident Involvement: Resident Care Provided Care Provided: Adult Hospital Medicine
--- NOTE | 2022-06-15 07:55 | Magnetic Resonance Report ---
MR brain wo con HISTORY: 81 years-old Female CVA . Acute strokelike symptoms with confusion COMPARISON: Head CT of same day, brain MRI 01/30/2021 TECHNIQUE: Multiplanar multisequence MRI of the brain was obtained without the use of IV contrast. FINDINGS: No restricted diffusion. No acute intracranial hemorrhage, midline shift, abnormal extra axial collec tion, hydrocephalus or intracranial mass. Motion degraded exam. Involutional changes with extensive T 2/FLAIR hyperintense foci throughout the white matter. Chronic lacunar infarcts of the basal ganglia. Susceptibility artifact within the prepontine cistern associated with metallic density structure of the V4 segment left vertebral artery. Cerebral venous sinuses and major arterial flow voids appear patent. Skull, orbits and soft tissues a re unremarkable. Prior bilateral lens repair. IMPRESSION: 1. Motion degraded exam. 2. No acute intracranial abnormality. No acute or subacute infarct. 3. Involutional changes with extensive chronic microvascular ischemic disease. 4. Chronic lacunar infarcts of the basal ganglia. ACT 112: Negative or not required by law. The above report was generated using voice recognition software. It may contain grammatical, syntax o r spelling errors. Electronically signed by: Thang Cortez M.D. 06/15/2022 7:54 AM
[2022-06-15] MEDS ORDERED: ASPIRIN 81 MG CHEW PO SCH (09:00)
[2022-06-15] MEDS ORDERED: LANTUS PER UNIT CHARGE SQ SCH ×2 (09:00→09:45)
--- NOTE | 2022-06-15 09:42 | Hospitalist Progress Note ---
Date of Service June 15, 2022 Assessment & Plan (1) Stroke-like symptoms: Plan: -chronic unstable, unclear outcome Presented with garbled speech and LL total weakness > LUE arm weakness, 5 hours out from LKW on arriva. - telestroke advising she is not a candidate for TNKase or thrombectomy. - CT head: x 2 There is no hemorrhage, mass effect, or evidence of acute territorial ischemia by CT criteria. 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 This is unchanged. * There is high-grade focal stenosis at the origin of the right P1 segment. A focus of moderate stenosis is seen in the left middle cervical artery. 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 These findings are similar to previous. 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 This is unchanged from previous. 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 This is unchanged. * There is moderate stenosis of the distal left common carotid artery. * There is moderate stenosis of the origin of the left vertebral artery. * Bony metastatic disease is seen in the manubrium of the sternum. this was disclosed to granddaughter - MRI, negative for stroke - Echo previous echo had LVOT and pt does have murmur - Allow for permissive hypertension - - Already on statin, can increase dose. Telestroke did not give recommendations regarding antiplatelet therapy. ASA to Plavix (2) Carotid artery stenosis: Plan: chronic stable change aspirin- On plavix, as well as Eliquis. Could consider switching ASA to Plavix. (3) Metastatic breast carcinoma: Plan: -chronic unstable consider metastatic disease Initial occurrence in 2009 with recurrence in 2020, mets to chest wall. - s/p wide local excision by surgery followed by radiation therapy and systemic therapy including hormonal therapy. - Continue anastrazole. -consider possible sternal met (4) Diabetes mellitus type 2, uncontrolled: Plan: - BSG 165 on admit.chronic stable - Continue basal insulin with SSI added on. - A1c in AM. (5) Chronic kidney disease, stage 3a: Plan: - chronic stableCr 1.26, appears to be about baseline. - Avoid nephrotoxins, renally dose medications as able. (6) Hyperlipidemia: Plan: - Continue statin, consider increasing dose. (7) Atrial tachycardia: Plan: - Per cardiology 05/15/22: She has had episodes of what appear to be atrial tachycardia. She also had an episode that the device logged as atrial fibrillation, but it appeared to actually be a normal rhythm with frequent ectopy. No true atrial fibrillation identified. Patient is asymptomatic. - Chronically anticoagulated with Eliquis for secondary CVA prevention. (8) CLL (chronic lymphocytic leukemia): Plan: - Continued observation. (9) Chronic obstructive pulmonary disease: Plan: - No evidence of acute exacerbation. - Continue home inhalers. (10) PA (obstructive sleep apnea): Plan: - Noncompliant/intolerant of CPAP. Plan - Discussed history with granddaughter the evening of she is primary caregiver - DNR/DNI. Admission and Anticipated Discharge Date Admission Date: June 14, 2022 Subjective expressive aphasia, mild left arm weakness , pt is awake and alert can write partial words, but can only speak in sounds or word bites Physical Exam Physical Exam: Patient has expressive aphasia. Patient has no facial droop. Patient has mild weakness to her left arm but no palmar drift or severe gross motor weakness Card exam is regular with a systolic murmur Results & Data Results & Data ([facility]) Vital Signs (Past 12 Hours) Vital Signs Temp Pulse Pulse Resp BP Pulse Ox O2 Del Method 06/15/22 07:00 98.2 F 76 20 127/64 93 Room Air 06/15/22 05:40 98.2 F 75 20 147/80 H 96 Nasal Cannula 06/14/22 22:05 73 06/14/22 22:00 Nasal Cannula 06/15/22 03:26 97.9 F 83 18 136/66 95 Nasal Cannula 06/14/22 21:45 98.2 F 75 19 148/56 H 97 Nasal Cannula 06/14/22 21:43 Room Air O2 Flow Rate 06/15/22 07:00 06/15/22 05:40 1 06/14/22 22:05 06/14/22 22:00 2 06/15/22 03:26 06/14/22 21:45 2 06/14/22 21:43 Diagnostic Findings Reviewed CBC no signs of infection or anemia Reviewed hemoglobin A1c no significant discordant diabetic control Reviewed calcium for malignancy associated hypercalcemia cause encephalopathy this was not found Review urinalysis for possible infection for encephalopathy this was not found PG Care Time/CCT Total # of Minutes Spent Total Time Spent with Patient: Total time spent is greater than 50% in coordination of care (as documented) at patient's floor/unit and/or counseling patient: Coding Level of Care Code 31355 SUB INP/OBS CARE 3/50MIN Diagnoses Stroke-like symptoms R29.90 Carotid artery stenosis I65.29 Metastatic breast carcinoma C50.919 Diabetes mellitus type 2, uncontrolled E11.65 Coma presence: without coma Chronic kidney disease, stage 3a N18.31 Hyperlipidemia E78.2 Hyperlipidemia type: mixed hyperlipidemia Atrial tachycardia I47.1 CLL (chronic lymphocytic leukemia) C91.10 Chronic obstructive pulmonary disease J44.9 COPD type: unspecified COPD PA (obstructive sleep apnea) G47.33 (1) Hyperlipidemia Hyperlipidemia type: mixed hyperlipidemia Qualified Code(s): E78.2 - Mixed hyperlipidemia (2) Diabetes mellitus type 2, uncontrolled Coma presence: without coma (3) Chronic obstructive pulmonary disease COPD type: unspecified COPD Qualified Code(s): J44.9 - Chronic obstructive pulmonary disease, unspecified
[2022-06-15] MEDS: CEROVITE ADV FORMULA TAB PO SCH (10:09)
[2022-06-15] MEDS: PANTOprazole 40 MG TAB PO SCH (10:09)
[2022-06-15] MEDS: ANASTROZOLE 1 MG TAB PO SCH (10:09)
[2022-06-15] MEDS: APIXABAN 5 MG TABLET PO SCH ×2 (10:09→20:40)
[2022-06-15] MEDS: GABAPENTIN 300 MG CAP PO SCH ×2 (10:10→20:41)
[2022-06-15] MEDS: INSULIN ASPART PER UNIT SC SCH ×4 (10:23→21:10)
[2022-06-15] MEDS: ACETAMINOPHEN 325 MG TAB PO PRN ×2 (10:24→21:10)
[2022-06-15] MEDS: LANTUS PER UNIT CHARGE SQ SCH ×2 (10:24→21:11)
[2022-06-15] MEDS: HEPARIN 100 UNIT/ML 5ML FLUSH FLUSH PRN (11:42)
--- NOTE | 2022-06-15 11:59 | Pharmacy Report ---
- Date of Service June 15, 2022 - Pharmacy CVA/TIA Medication Review Medications to Prevent Stroke handout has been added to the patients discharge packet. Antiplatelet(s) * Aspirin 81 mg PO daily Cholesterol * High intensity statin: rosuvastatin 20 mg daily DVT Prophylaxis * SCD knee Therapeutic Anticoagulation * Hx Afib noted, and patient is currently receiving Eliquis Type 2 Diabetes * Patient has T2DM, but per Dr. Puente, a diabetes medication with proven CVD benefit will be deferred to their outpatient provider due to familiarity with risks/benefits of such therapies. "Medications to prevent stroke" handout has already been added to the patient's discharge packet, which instructs the patient to follow up with their outpatient provider to evaluate which diabetes medication with proven CVD benefit is best for them
--- NOTE | 2022-06-15 18:00 | XCELERA ---
[id number]___[id number]
[2022-06-15] MEDS: ROSUVASTATIN CALCIUM 20 MG TAB PO SCH (20:40)
[2022-06-15] MEDS: DONEPEZIL HCL 10 MG TAB PO SCH (20:41)
[2022-06-15] MEDS: OXYBUTYNIN CHLORIDE XL 5 MG TABCR PO SCH (20:42)
[2022-06-16] MEDS: ACETAMINOPHEN 325 MG TAB PO PRN (03:50)
[2022-06-16] MEDS: LEVOTHYROXINE SODIUM 75 MCG TABLET PO SCH (03:51)
[2022-06-16 06:27] LABS: Basophils # (auto) 0.03 K/uL (0-0.2); Basophils % (auto) 0.3 %; Eosinophils # (auto) 0.45 K/uL (0-0.50); Hematocrit (blood only) 37.2 % (34.1-44.9); Hemoglobin 11.4 g/dl (12.0-16.0); Immature Granulocytes # (auto) 0.02 K/uL (0.00-0.02); Immature Granulocytes % (auto) 0.2 %; Lymphocytes # (auto) 2.57 K/uL (1.2-3.4); Lymphocytes % (auto) 28.4 %; Mean Corpuscular Hemoglobin 25.9 pg (25.0-34.0); Mean Corpuscular Hgb Conc 30.6 g/dL (32.0-36.0); Mean Corpuscular Volume 84.5 fL (80.0-100.0); Mean Platelet Volume 11.4 fL (9.4-12.3); Monocytes # (auto) 0.87 K/uL (0.24-0.82); Monocytes % (auto) 9.6 %; Neutrophils # (auto) 5.12 K/uL (1.4-6.5); Neutrophils % (auto) 56.5 %; Platelet Count 322 K/uL (130-400); RDW Coefficient of Variation 15.5 % (11.5-14.5); White Blood Count 9.06 K/ul (4.8-10.8)
[2022-06-16 06:57] LABS: Calcium 8.6 mg/dl (8.5-10.1); Potassium 4.4 mmol/L (3.5-5.1)
[2022-06-16 07:02] LABS: BUN Creatinine Ratio 15.1 (10-20); Creatinine Clr Calc Pharmacy 28.9 ml/min; Est GFR (African American) 38.7 ml/min; Est GFR (Non-African American) 33.4 ml/min
[2022-06-16] MEDS: INSULIN ASPART PER UNIT SC SCH ×4 (09:28→21:05)
[2022-06-16] MEDS: PANTOprazole 40 MG TAB PO SCH (09:29)
[2022-06-16] MEDS: GABAPENTIN 300 MG CAP PO SCH ×2 (09:29→21:06)
[2022-06-16] MEDS: ANASTROZOLE 1 MG TAB PO SCH (09:29)
[2022-06-16] MEDS: CEROVITE ADV FORMULA TAB PO SCH (09:29)
[2022-06-16] MEDS: APIXABAN 5 MG TABLET PO SCH ×2 (09:29→21:06)
[2022-06-16] MEDS: CLOPIDOGREL BISULFATE 75 MG TAB PO SCH (09:29)
[2022-06-16] MEDS: LANTUS PER UNIT CHARGE SQ SCH ×2 (09:30→21:05)
[2022-06-16] MEDS: POLYETHYLENE (MIRALAX) 17 GM PACK PO PRN (09:38)
--- NOTE | 2022-06-16 09:58 | Electrocardiogram Report ---
Test Reason : Blood Pressure : / mmHG Vent. Rate : 081 BPM Atrial Rate : 016 BPM P-R Int : 000 ms QRS Dur : 070 ms QT Int : 408 ms P-R-T Axes : 000 019 -86 degrees QTc Int : 473 ms Possible Accelerated Junctional rhythm Low voltage QRS Nonspecific T wave abnormality Prolonged QT Abnormal ECG When compared with ECG of 22-JUL-2021 14:14, Junctional rhythm has replaced Sinus rhythm Criteria for Inferior infarct are no longer Present Nonspecific T wave abnormality now evident in Inferior leads Nonspecific T wave abnormality, worse in Anterolateral leads Confirmed by Mohit Avilez ([id number]) on 06/16/2022 9:58:00 AM Referred By: REFERRED SELF Confirmed By:Mohit Avilez
--- NOTE | 2022-06-16 12:17 | Neurology Consultation ---
Date of Consultation June 16, 2022 Assessment & Plan (1) Stroke-like symptoms: Plan NEUROLOGY CONSULTATION Assessment & Plan: Impression: pt with acute left hemiparesis in setting of significant vascular disease, especially on rt side ICA and vertebral artery. mri brain for acute ischemic stroke. it is difficult to say if she had TIA vs maybe cervical pathology maybe contributing to her symptoms as she is complaining of neck pain and left side radic symptoms. Recommendations: -agree with current TIA management and risk modifications including Eliquis. -do recommend getting MRI of C spine with JESSICA to eval for cervical structural pathology that may be contributing to her symptoms of left side weakness. If mri C spine is not very much contributory, then TIA likely and routine physical therapy and OT with stroke rhab is appropriate. pt may follow up with outpt neurology in 1-2 months after discharge from hospital. pt with known metastatic breast cancer, this will likely determine her future plane of care. Dr. Charli Rodriguez MD [facility] Neurology Chief Complaint: History of Present Illness: HPI: pt this morning still feeling left side weakness arm and leg but slight improvement in movement. mri brain without acute stroke. pt is complaining of left trap area pain with palpation and numbness and tingling in her finger tips. mri and chart reviewed. Admission/Initial HPI documentation: Sharon Ochoa is an 81-year-old female with a past medical history significant for prior CVA, atrial tachycardia, LVOT obstruction, breast cancer, CLL, COPD, PA intolerant to CPAP, DM2, CKD 3, hyperlipidemia, urinary incontinence, depression, and hypothyroidism is presenting today as a stroke alert. Patient's last known well was noon today. Later in the afternoon, patient was noted to have garbled speech, total weakness of left leg and noticeable weakness and left arm. She is brought in by EMS without family, BSG 200s in the field, BP on presentation 145/61, now slightly more hypertensive 185/81. Since presentation, her symptoms to start resolved. She is moving both left arm and leg better and is able to communicate in full sentences. Labs notable for white count of 11 with left shift, creatinine 1.26, baseline. Glucose 165. Without electrolyte abnormalities, troponin 10.9, no transaminitis. UA does not appear infected, negative for COVID. 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 This is unchanged. There is high-grade focal stenosis at the origin of the right P1 segment. A focus of moderate stenosis is seen in the left middle cervical artery. 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 These findings are similar to previous. 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 This is unchanged from previous. 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 This is unchanged. There is moderate stenosis of the distal left common carotid artery. There is moderate stenosis of the origin of the left vertebral artery. 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 Past Medical History: See chart Meds: See chart I personally reviewed all of the medications Social & Family History: See chart Review of Systems: Per initial HPI on admission. Pt too cognitively or communication impaired to participate in ROS. Physical Exam: GEN: NAD HEENT: Normocephalic Neuro: Mental status:Alert and follows command very well. knew her name and location.No dysarthria .No neglect. Fluent speech. No apraxia Cranial Nerves:II-XII intact Motor:Normal bulk and tone,5/5 strength on rt side. LUE: 3+/5 proximally and 3/5 distally t/o, LLE: 4-/5 proximally and 3+/5 distally with knee extension/flexion. Coordination:Intact grossly. Reflexes:+1 throughout, down going toes brayan Sensation: Intact x 4 extremities to touch except tingling in her left finger tips. Gait:deferred. Chart reviewed I have spent more than 50% educating patient about potential diagnosis and neurological evaluation and coordinating care with patient's treatment team. Total time spent (including chart review and coordination of care): 80 min (this includes chart review). History of Present Illness Attending Physician: Cm Puente MD Allergies Allergy/AdvReac Type Severity Reaction Status Date / Time adhesive Allergy Intermediate BLISTERS Verified 06/14/22 17:50 amitriptyline AdvReac Intermediate HALLUCINATI Verified 06/14/22 17:50 ONS atorvastatin AdvReac Intermediate JOINT PAIN Verified 06/14/22 17:50 cephalexin AdvReac Intermediate N/V Verified 06/14/22 17:50 codeine AdvReac Intermediate NAUSEA AND Verified 06/14/22 17:50 VOMITING doxycycline AdvReac Intermediate GI SYMPTOMS Verified 06/14/22 17:50 hydroxychloroquine AdvReac Intermediate Diarrhea Verified 06/14/22 17:50 [From Plaquenil] liraglutide AdvReac Intermediate GI UPSET Verified 06/14/22 17:50 phenol AdvReac Intermediate GI UPSET Verified 06/14/22 17:50 pioglitazone AdvReac Intermediate SEVERE Verified 06/14/22 17:50 FATIGUE tramadol AdvReac Intermediate N/V Verified 06/14/22 17:50 zoster vaccine live AdvReac Unknown Unknown Verified 06/14/22 17:50 [From Zostavax (PF)] Home Medications Medication Instructions Recorded Confirmed Type vit C 226 mg-vit E 90 mg-copper 1 cap PO QAM 09/04/18 06/14/22 History 0.8 mg-zinc oxide-lutein 5 mg capsule (PreserVision Lutein) aspirin 81 mg chewable tablet 81 mg PO QAM 01/21/19 06/14/22 History anastrozole 1 mg tablet 1 mg PO QAM 01/19/21 06/14/22 History rosuvastatin 20 mg tablet (Crestor) 20 mg PO HS #90 tabs 02/07/21 06/14/22 Rx apixaban 5 mg tablet (Eliquis) 5 mg PO BID 05/05/21 06/14/22 History Wheelchair (Powered) #1 ea 08/04/21 06/12/22 Rx alendronate 70 mg tablet 70 mg PO Q7D 08/26/21 06/14/22 History Wheelchair (Powered) (Power #1 ea 09/08/21 06/12/22 Rx Wheelchair) pen needle, diabetic 32 gauge x #100 ea 09/26/21 06/12/22 Rx 5/32" (BD Pratima 2nd Gen Pen Needle) lorazepam 0.5 mg tablet 0.5 mg PO TID PRN Anxiety or 12/04/21 06/14/22 Rx muscle spasm #30 tabs blood sugar diagnostic (OneTouch #300 ea 12/21/21 06/12/22 Rx Ultra Test strips) donepezil 5 mg tablet 10 mg PO HS 02/02/22 06/14/22 History diaper,brief,adult,disposable #60 ea 05/24/22 06/12/22 Rx incontinence pad, liner, disp #60 ea 05/24/22 06/12/22 Rx (Underpads Regular) vilazodone 20 mg tablet (Viibryd) 20 mg PO DAILY #90 tabs 05/24/22 06/14/22 Rx AFO brarox, L #1 ea 05/26/22 06/12/22 Rx Wheeled Walker #1 ea 06/08/22 06/12/22 Rx gabapentin 300 mg capsule See Rx Instructions .Route .COMPLEX 06/12/22 06/14/22 History hydrocodone 5 mg-acetaminophen 325 1 - 2 tab PO DIRECTED PRN Pain 06/12/22 06/14/22 History mg tablet metformin 500 mg tablet,extended 500 mg PO HS 06/12/22 06/14/22 History release 24 hr omeprazole 40 mg capsule,delayed 40 mg PO QAM #30 caps 06/12/22 06/14/22 Rx release insulin aspar prot-insulin aspart 60 unit subcut BID 06/14/22 06/14/22 History 100 unit/mL (70-30) subcutaneous pen (Novolog Mix 70-30FlexPen U-100) insulin detemir U-100 100 unit/mL 50 unit subcut QAM 06/14/22 06/14/22 History (3 mL) subcutaneous pen (Levemir FlexTouch U-100 Insulin) levothyroxine 75 mcg tablet 75 mcg PO QAM 06/14/22 06/14/22 History oxybutynin chloride 15 mg 15 mg PO QPM 06/14/22 06/14/22 History tablet,extended release 24 hr Patient History Medical History Aneurysm, cerebral, nonruptured LV4 aneurysm treated with stent/coil 2016 Per 01/30/21 Head CTA = No change in a 4 mm saccular aneurysm of the distal right middle cerebral artery and a 2 mm basilar artery aneurysm. Anxiety Asthma well controlled per pt > no inhalers Atrial aneurysm Atrial fib/flutter, transient Follows [facility] > no cardioversions Loop recorder in place - [employer]- placed 09/05/18 Breast cancer DX in 2009> bilat mastectomy >no chemo Recently diagnosed with metastatic right breast carcinoma 08/13/20 Carotid artery stenosis Follows with [facility]. S/p CEA years ago Per 01/30/21 neck CTA- severe stenosis at origin of left vertebral artery. Occlusion of the proximal to mid right vertebral artery with distal reconstitution. Stable 5 mm outpouching of the proximal right internal carotid artery with possible associated short segment dissection, unchanged. Moderate atherosclerotic plaque with the major vessels of the neck Central stenosis of spinal canal Chronic kidney disease, stage 3a Chronic obstructive pulmonary disease Cirrhosis CLL (chronic lymphocytic leukemia) Coronary artery calcification Based on calcified coronary arteries on CT Scan Abd/Pelvis 08/03/20 Deep vein thrombosis several yrs ago> left leg > caused from control pills Depression Diabetes mellitus type 2, uncontrolled IDDM Diabetic nephropathy Gastroesophageal reflux disease History of COVID-19 (~05/2021) jul or august 2021, pcr test mn, admitted w/stroke, tested while in hospital- found to be covid +=in hospital for 3 weeks for stroke and covid>resolved. Hx of sleep apnea waiting on new cpap Hyperlipidemia Hypertension Hypothyroidism Left hemiparesis From stroke in November 2019>uses walker or wheelchair due to weakness Left ventricular outflow tract obstruction Lumbar radiculopathy Lumbar spinal stenosis Lumbar stenosis with neurogenic claudication Nonalcoholic steatohepatitis Osteopenia Polycythemia Recurrent cancer of right breast (08/13/20) Initially diagnosed 2009- s/p bilateral mastectomy recurrence to chest wall s/p XRT 07/2020 Sensorineural hearing loss (SNHL) of both ears Short-term memory loss Stroke December 05, 2019 > [facility] > has short term memory loss as result > left side weakness TIA (transient ischemic attack) Jan 2021 TMJ syndrome "don't have it all them time, just clicks, no locking" Urinary frequency Vertebral artery stenosis Per 01/30/21 neck CTA- severe stenosis at origin of left vertebral artery. Occlusion of the proximal to mid right vertebral artery with distal reconstitution. Stable 5 mm outpouching of the proximal right internal carotid artery with possible associated short segment dissection, unchanged. Moderate atherosclerotic plaque with the major vessels of the neck Surgical History H/O varicose vein ligation and stripping left leg History of appendectomy History of brain surgery Cerebral angiogram and stent-assisted coil embolization of the It PICA aneurysm. 12/22/2015 > follows with [facility] History of breast lump/mass excision History of carotid endarterectomy Right side per records Over 6 yrs ago > [facility] History of cataract surgery Right: July 2012 Left: August 2012 History of colonoscopy History of hysterectomy Ovaries intact History of mastectomy bilateral September 2009 History of parathyroid surgery Excision of benign neoplasm History of shoulder surgery Right shoulder arthroscopic labral debridement, subacromial decompression, and acromioplasty excision distal clavicle, biceps tenotomy. 06/15/2014 History of total knee replacement left 01/11/2012 Hx of excision of mass from chest wall > right side > radiation now complete Hx of tonsillectomy Port-A-Cath in place (02/22/22) Insertion Access Port with Fluoroscopy to left internal jugular vein (Left) - Joseph Ingram, , FACS Family History Grandmother No problems noted. Father , in his 50s of lung cancer Lung disease Lung cancer Mother , in her 70s of cancer Cancer Hypertension Unknown , Niece at 37 Colon cancer Son Anxiety Depression Kidney stones Alcohol abuse Grandmother (Maternal) Lung cancer Sister COPD (chronic obstructive pulmonary disease) Son MVA (motor vehicle accident) Son Rheumatic fever Daughter Medical history unknown Denies family history of Ovarian cancer Prostate cancer Myocardial infarction Breast cancer Bleeding disorder Social History Smoking Status: Former smoker Tobacco Type: Cigarettes Age Started Using Tobacco: 16; Cigarettes Per Day: 1-2; Second Hand Exposure: Yes (); Hx Alcohol Use: No Hx Substance Use: No Preferred Language: Thai Communication Ability: Effective Visual Impairment: No Limitations Hearing Ability: Normal Web Portal Developer Required: No Beliefs That Will Affect Care: None marital status: Current Living Situation: Spouse current occupational status: retired 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 How many Children do You have: 4 How many Children do You have Comment: Pregnancies:6 Children:4 :1 Other Information That Helps Us Care for You: No Feels Safe at Home: Yes Safety Concerns: Feels Safe At This Time Childhood Exposure to Second-Hand Smoke: Yes caffeine: Yes during the past year weight has: remained stable Dental Care, Regularly: No Physical Activity Frequency: Does not Exercise Seatbelt Use: never Assistive Devices: Walker Results & Data ([facility]) Vital Signs (Past 12 Hours) Vital Signs Temp Pulse Pulse Resp BP Pulse Ox O2 Del Method 06/16/22 10:21 Room Air 06/16/22 07:36 74 06/16/22 07:12 36.6 C 77 17 118/57 L 93 Room Air 06/16/22 03:45 36.6 C 81 18 122/58 L 91 Nasal Cannula
[2022-06-16] MEDS ORDERED: ALPRAZolam 0.25 MG TABLET PO PRN (12:39)
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
[2022-06-16] MEDS: ALPRAZolam 0.5 MG TABLET PO PRN (18:47)
[2022-06-16] MEDS: DONEPEZIL HCL 10 MG TAB PO SCH (21:06)
[2022-06-16] MEDS: OXYBUTYNIN CHLORIDE XL 5 MG TABCR PO SCH (21:07)
[2022-06-16] MEDS: ROSUVASTATIN CALCIUM 20 MG TAB PO SCH (21:07)
--- NOTE | 2022-06-16 23:30 | Magnetic Resonance Report ---
MR cervical spine wo con HISTORY: 81 years-old Female eval for neruopathy of lue chronic neck pain with left upper extremity radicular symptoms COMPARISON: Brain MRI 06/15/2022 TECHNIQUE: Multi planar multisequence MRI of the cervical spine was obtained without the use of IV co ntrast. FINDINGS: The patient was claustrophobic and was unable to complete the scan. Axial T1, oblique and sagittal ST IR images were unable to be obtained. [employer] Offbearer localizer images demonstrate no gross extraspinal abnorma lity. Involutional changes of the brain parenchyma with chronic microvascular ischemic disease. The s tudy is motion degraded limiting evaluation of the neural foramina specifically. Unremarkable appeara nce of the cervical spinal cord. No acute fracture or subluxation identified. C2-C3: Uncovertebral hypertrophy with moderate facet arthrosis. The central canal is patent. There is suggestion of mild bilateral foraminal narrowing. C3-C4: Uncovertebral hypertrophy with 6 mm right paracentral disc protrusion. Moderate facet arthrosi s. Mild to moderate central canal stenosis, AP dimension of the thecal sac measuring 7 mm. Slight def ormity of the ventral cervical spinal cord. Mild bilateral foraminal narrowing. C4-C5: Severe intervertebral disc space narrowing. Spondylitic spurring with posterior annular disc b ulge and severe facet arthrosis. Moderate central canal stenosis, AP dimension of the thecal sac mercy uring 6 mm. Severe bilateral foraminal narrowing. C5-C6: Severe intervertebral disc space narrowing. Spondylitic spurring with posterior annular disc b ulge and severe facet arthrosis. Moderate central canal stenosis, AP dimension of the thecal sac mercy uring 5 mm. Severe bilateral foraminal narrowing. C6-C7: Severe intervertebral disc space narrowing. Spondylitic spurring with posterior annular disc b ulge and severe facet arthrosis. Mild to moderate central canal stenosis, AP dimension of the thecal sac measuring 6 mm. Severe bilateral foraminal narrowing. C7-T1: Moderate intervertebral disc space narrowing with spondylitic spurring, circumferential annula r disc bulge and severe facet arthrosis. Flattening of the ventral thecal sac without significant nasrin tral canal narrowing. There is at least mild right with [id number] left neural foraminal narrow ing. IMPRESSION: 1. Motion degraded exam. The patient was unable to complete the study. 2. Discogenic degeneration, spondylitic spurring and facet arthrosis as above resulting in multilevel central canal and neural foraminal stenosis. ACT 112: Negative or not required by law. The above report was generated using voice recognition software. It may contain grammatical, syntax o r spelling errors. Electronically signed by: Thang Cortez M.D. 06/16/2022 11:27 PM
[2022-06-17] MEDS: LEVOTHYROXINE SODIUM 75 MCG TABLET PO SCH (05:24)
[2022-06-17 06:04] LABS: Basophils # (auto) 0.02 K/uL (0-0.2); Basophils % (auto) 0.2 %; Eosinophils # (auto) 0.46 K/uL (0-0.50); Eosinophils % (auto) 5.1 %; Hematocrit (blood only) 38.8 % (34.1-44.9); Hemoglobin 11.9 g/dl (12.0-16.0); Immature Granulocytes # (auto) 0.03 K/uL (0.00-0.02); Immature Granulocytes % (auto) 0.3 %; Lymphocytes # (auto) 2.02 K/uL (1.2-3.4); Lymphocytes % (auto) 22.2 %; Mean Corpuscular Hemoglobin 26.3 pg (25.0-34.0); Mean Corpuscular Hgb Conc 30.7 g/dL (32.0-36.0); Mean Corpuscular Volume 85.7 fL (80.0-100.0); Mean Platelet Volume 10.9 fL (9.4-12.3); Monocytes # (auto) 0.89 K/uL (0.24-0.82); Monocytes % (auto) 9.8 %; Neutrophils # (auto) 5.68 K/uL (1.4-6.5); Neutrophils % (auto) 62.4 %; Platelet Count 312 K/uL (130-400); RDW Coefficient of Variation 15.7 % (11.5-14.5); RDW Standard Deviation 48.1 fL (36.4-46.3); Red Blood Count 4.53 M/uL (3.93-5.22)
[2022-06-17] MEDS: ACETAMINOPHEN 325 MG TAB PO PRN (06:15)
[2022-06-17 06:40] LABS: Potassium 4.4 mmol/L (3.5-5.1)
[2022-06-17 06:46] LABS: Creatinine Clr Calc Pharmacy 28.7 ml/min; Est GFR (African American) 38.4 ml/min; Est GFR (Non-African American) 33.1 ml/min
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
[2022-06-17] MEDS: ANASTROZOLE 1 MG TAB PO SCH (08:08)
[2022-06-17] MEDS: PANTOprazole 40 MG TAB PO SCH (08:08)
[2022-06-17] MEDS: APIXABAN 5 MG TABLET PO SCH ×2 (08:09→20:50)
[2022-06-17] MEDS: CEROVITE ADV FORMULA TAB PO SCH (08:09)
[2022-06-17] MEDS: GABAPENTIN 300 MG CAP PO SCH ×2 (08:09→20:50)
[2022-06-17] MEDS: CLOPIDOGREL BISULFATE 75 MG TAB PO SCH (08:09)
[2022-06-17] MEDS: LANTUS PER UNIT CHARGE SQ SCH ×2 (08:10→20:50)
[2022-06-17] MEDS: INSULIN ASPART PER UNIT SC SCH ×4 (08:12→20:50)
[2022-06-17] MEDS: POLYETHYLENE (MIRALAX) 17 GM PACK PO PRN (08:12)
[2022-06-17] MEDS: DOCUSATE SODIUM/SENNA 50/8.6MG TAB PO SCH (08:25)
--- NOTE | 2022-06-17 12:03 | Neurology Progress Note ---
Date of Service June 17, 2022 Assessment & Plan (1) Stroke-like symptoms: Plan Neurology Progress Note Assessment & Plan: Impression: pt with acute left hemiapresis that is improving. There is definitely some component of effort dependent change in her weakness. MRI C spine with diffuse multiple level DDD/DJD with severe narrowing spinal canal. This cervical degenerative disease likely contributing to her pain in her neck and likely contributing to her subjective feeling of left side weakness. Reassured pt about speech, i do not see clear organic cortical aphasia, perhaps her anxiety/stress contributing significantly. Recommendations: -not much to add at this point from neurology agree with psych consultation consideration speech evaluation prn, as routine and can be done as outpt. routine management of her cervical degenerative disease, ok to participate in Physical therapy and OT at this point. will sign off, please call again if new question. Dr. Charli Rodriguez MD [facility] Neurology Subjective: Patient Seen and Examined. The notes from the last 24 hours were reviewed.pt this morning writing on her note pad and she is making much better sounds with stuttering, does appears that it maybe stress/anxiety related. improving left side weakness. Review of Systems: Per HPI and prior note. Physical Exam: HEENT: Normocephalic. No icter or congestion Neck: supple Extremities: no clubbing Skin: no rashes or lesions noted Neuro: Level of consciousness:Alert and appropriate Oriented:X 3, making some verbal sounds and able to slowing speak with stuttering. normal comprehension and writing and reading. Cranial Nerves:face symmetric, PERRL, tongue midline, hearing intact, shrugs shoulders Strength:5/5 throughout rt side. 4/5 left arm and 4/5 left leg with some give away weakness and pain related, this is improvement from yesterday. Sensation to light touch: Intact bilaterally Meds: See chart I personally reviewed all of the medications Chart reviewed Total time spent: 50 minutes (this includes chart review); more than 50% time spent in counseling or coordination of care. Admission and Anticipated Discharge Date Admission Date: June 14, 2022 Results & Data ([facility]) Vital Signs (Past 12 Hours) Vital Signs Temp Pulse Pulse Resp BP Pulse Ox O2 Del Method 06/17/22 11:35 36.8 C 73 18 118/71 92 Room Air 06/17/22 09:54 Room Air 06/17/22 07:37 77 06/17/22 07:29 36.9 C 74 16 146/81 H 91 Room Air 06/17/22 03:17 36.8 C 70 18 127/77 92 Room Air
[2022-06-17] MEDS: ALPRAZolam 0.5 MG TABLET PO PRN ×2 (14:01→21:56)
[2022-06-17] MEDS: DONEPEZIL HCL 10 MG TAB PO SCH (20:50)
[2022-06-17] MEDS: OXYBUTYNIN CHLORIDE XL 5 MG TABCR PO SCH (20:51)
[2022-06-17] MEDS: ROSUVASTATIN CALCIUM 20 MG TAB PO SCH (20:52)
[2022-06-18] MEDS: LEVOTHYROXINE SODIUM 75 MCG TABLET PO SCH (05:32)
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
[2022-06-18] MEDS: INSULIN ASPART PER UNIT SC SCH ×4 (08:45→21:24)
[2022-06-18] MEDS: CEROVITE ADV FORMULA TAB PO SCH (08:46)
[2022-06-18] MEDS: ANASTROZOLE 1 MG TAB PO SCH (08:46)
[2022-06-18] MEDS: DOCUSATE SODIUM/SENNA 50/8.6MG TAB PO SCH (08:46)
[2022-06-18] MEDS: GABAPENTIN 300 MG CAP PO SCH ×2 (08:46→21:16)
[2022-06-18] MEDS: APIXABAN 5 MG TABLET PO SCH ×2 (08:46→21:16)
[2022-06-18] MEDS: LANTUS PER UNIT CHARGE SQ SCH ×2 (08:46→21:24)
[2022-06-18] MEDS: CLOPIDOGREL BISULFATE 75 MG TAB PO SCH (08:46)
[2022-06-18] MEDS: PANTOprazole 40 MG TAB PO SCH (08:46)
[2022-06-18] MEDS: ACETAMINOPHEN 325 MG TAB PO PRN (08:51)
[2022-06-18] MEDS: ALPRAZolam 0.5 MG TABLET PO PRN (21:16)
[2022-06-18] MEDS: DONEPEZIL HCL 10 MG TAB PO SCH (21:16)
[2022-06-18] MEDS: OXYBUTYNIN CHLORIDE XL 5 MG TABCR PO SCH (21:16)
[2022-06-18] MEDS: ROSUVASTATIN CALCIUM 20 MG TAB PO SCH (21:16)
[2022-06-18] MEDS: NYSTATIN POWDER 15GM BTL EXT PRN (21:17)
[2022-06-18] MEDS: ESCITALOPRAM OXALATE 10 MG TAB PO SCH (21:17)
[2022-06-19] MEDS: HYDROCODONE/ACETAMOPHEN 5/325MG TAB PO PRN ×2 (06:35→21:29)
[2022-06-19] MEDS: LEVOTHYROXINE SODIUM 75 MCG TABLET PO SCH (06:35)
[2022-06-19 07:57] LABS: Vitamin D, 25 Hydrox 17.8 ng/ml (30-100)
[2022-06-19] MEDS: GABAPENTIN 300 MG CAP PO SCH ×2 (08:47→21:36)
[2022-06-19] MEDS: DOCUSATE SODIUM/SENNA 50/8.6MG TAB PO SCH (08:47)
[2022-06-19] MEDS: CLOPIDOGREL BISULFATE 75 MG TAB PO SCH (08:47)
[2022-06-19] MEDS: ANASTROZOLE 1 MG TAB PO SCH (08:47)
[2022-06-19] MEDS: APIXABAN 5 MG TABLET PO SCH ×2 (08:47→21:38)
[2022-06-19] MEDS: PANTOprazole 40 MG TAB PO SCH (08:47)
[2022-06-19] MEDS: INSULIN ASPART PER UNIT SC SCH ×4 (08:48→21:08)
[2022-06-19] MEDS: CEROVITE ADV FORMULA TAB PO SCH (08:48)
[2022-06-19] MEDS: HEPARIN 100 UNIT/ML 5ML FLUSH FLUSH PRN (08:50)
[2022-06-19] MEDS: LANTUS PER UNIT CHARGE SQ SCH ×2 (08:52→21:12)
[2022-06-19] MEDS ORDERED: IRON SUCROSE 200 MG in 0.9 % SODIUM CHLORIDE 100 ML IV ONE (09:15)
[2022-06-19] MEDS: CHOLECALCIFEROL 5,000 UNITS 125 MCG TAB PO SCH (09:51)
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
[2022-06-19] MEDS: ALPRAZolam 0.5 MG TABLET PO PRN (21:29)
[2022-06-19] MEDS: NYSTATIN POWDER 15GM BTL EXT PRN (21:30)
[2022-06-19] MEDS: OXYBUTYNIN CHLORIDE XL 5 MG TABCR PO SCH (21:36)
[2022-06-19] MEDS: DONEPEZIL HCL 10 MG TAB PO SCH (21:37)
[2022-06-19] MEDS: ESCITALOPRAM OXALATE 10 MG TAB PO SCH (21:39)
[2022-06-19] MEDS: ROSUVASTATIN CALCIUM 20 MG TAB PO SCH (21:40)
[2022-06-20] MEDS: HYDROCODONE/ACETAMOPHEN 5/325MG TAB PO PRN ×2 (01:17→06:12)
[2022-06-20] MEDS: ALPRAZolam 0.5 MG TABLET PO PRN ×2 (06:12→21:10)
[2022-06-20] MEDS: LEVOTHYROXINE SODIUM 75 MCG TABLET PO SCH (06:41)
[2022-06-20] MEDS: ANASTROZOLE 1 MG TAB PO SCH (08:41)
[2022-06-20] MEDS: CLOPIDOGREL BISULFATE 75 MG TAB PO SCH (08:42)
[2022-06-20] MEDS: CHOLECALCIFEROL 5,000 UNITS 125 MCG TAB PO SCH (08:42)
[2022-06-20] MEDS: APIXABAN 5 MG TABLET PO SCH ×2 (08:42→21:06)
[2022-06-20] MEDS: GABAPENTIN 300 MG CAP PO SCH ×2 (08:43→21:05)
[2022-06-20] MEDS: PANTOprazole 40 MG TAB PO SCH (08:43)
[2022-06-20] MEDS: CEROVITE ADV FORMULA TAB PO SCH (08:43)
[2022-06-20] MEDS: DOCUSATE SODIUM/SENNA 50/8.6MG TAB PO SCH (08:43)
[2022-06-20] MEDS: INSULIN ASPART PER UNIT SC SCH ×4 (08:45→21:11)
[2022-06-20] MEDS: HEPARIN 100 UNIT/ML 5ML FLUSH FLUSH PRN (08:46)
[2022-06-20] MEDS: LANTUS PER UNIT CHARGE SQ SCH ×2 (08:52→21:11)
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
[2022-06-20] MEDS: DEXTROMETHORPHAN POLYMR COMPLX 30MG/5 ML BTL PO SCH (18:17)
[2022-06-20] MEDS: ROSUVASTATIN CALCIUM 20 MG TAB PO SCH (21:05)
[2022-06-20] MEDS: ESCITALOPRAM OXALATE 10 MG TAB PO SCH (21:05)
[2022-06-20] MEDS: OXYBUTYNIN CHLORIDE XL 5 MG TABCR PO SCH (21:05)
[2022-06-20] MEDS: DONEPEZIL HCL 10 MG TAB PO SCH (21:06)
[2022-06-21] MEDS: LEVOTHYROXINE SODIUM 75 MCG TABLET PO SCH (05:48)
[2022-06-21] MEDS: DEXTROMETHORPHAN POLYMR COMPLX 30MG/5 ML BTL PO SCH ×2 (05:48→17:07)
[2022-06-21] MEDS: ANASTROZOLE 1 MG TAB PO SCH (11:18)
[2022-06-21] MEDS: GABAPENTIN 300 MG CAP PO SCH ×2 (11:18→20:47)
[2022-06-21] MEDS: APIXABAN 5 MG TABLET PO SCH ×2 (11:18→20:47)
[2022-06-21] MEDS: CLOPIDOGREL BISULFATE 75 MG TAB PO SCH (11:19)
[2022-06-21] MEDS: CEROVITE ADV FORMULA TAB PO SCH (11:19)
[2022-06-21] MEDS: PANTOprazole 40 MG TAB PO SCH (11:19)
[2022-06-21] MEDS: DOCUSATE SODIUM/SENNA 50/8.6MG TAB PO SCH (11:20)
[2022-06-21] MEDS: CHOLECALCIFEROL 5,000 UNITS 125 MCG TAB PO SCH (11:20)
[2022-06-21] MEDS: INSULIN ASPART PER UNIT SC SCH ×4 (12:27→20:52)
[2022-06-21] MEDS: LANTUS PER UNIT CHARGE SQ SCH ×2 (13:23→20:52)
--- NOTE | 2022-06-21 14:45 | Hospitalist Progress Note ---
Date of Service June 21, 2022 Assessment & Plan (1) Stroke-like symptoms: Plan: acute issues with systemic affects, suspect TIA neurology other considerations are discussions of conversion disorder or possibly pseudobulbar affect disorder On arrival patient was not a candidate for TNKase or thrombectomy. - CT head: There is no hemorrhage, mass effect, or evidence of acute territorial ischemia by CT criteria. 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 This is unchanged. * There is high-grade focal stenosis at the origin of the right P1 segment. A focus of moderate stenosis is seen in the left middle cervical artery. 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 These findings are similar to previous. 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 This is unchanged from previous. 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 This is unchanged. * There is moderate stenosis of the distal left common carotid artery. * There is moderate stenosis of the origin of the left vertebral artery. * Bony metastatic disease is seen in the manubrium of the sternum. - MRI,06/14/22 No acute intracranial abnormality. No acute or subacute infarct.. Involutional changes with extensive chronic microvascular ischemic disease.Chronic lacunar infarcts of the basal ganglia. - Echo without significant changes does have LVOT as previously noted - significant aphasia - Already on statin, Telestroke did not give recommendations regarding antiplatelet therapy. switching ASA to Plavix, - Telemetry for surveillance of episodes of atrial fibrillation. no concerns seen psychiatric consultation, possible pseudobulbar affect and previous strokes did start dextromethorphan as listed on clinical pharmacology as a possible treatment, may be antidotal but patient had some improvement in the first 24 hours continuing the Lexapro dosing with increased dosing 06/20 For iron and vitamin D deficiency Venfer given x1 vitamin D oral therapy started, concerned with constipation we will start oral iron therapy on the (2) Carotid artery stenosis: Plan: Chronic and stable- On ASA, as well as Eliquis. switching ASA to Plavix. Angiography of neck and brain shows any changes. None of which by themselves does cause an ischemic event but likely the summation of these multiple stenoses in thromboses and aneurysms likely affecting her overall cerebral perfusion which may be leading to this prolonged TIA-like symptoms (3) Metastatic breast carcinoma: Plan: - Chronic and stable consider metastatic disease initial occurrence in 2009 with recurrence in 2020, mets to chest wall. - s/p wide local excision by surgery followed by radiation therapy and systemic therapy including hormonal therapy. - Continue anastrazole. Discussion of possible sternal metastasis was disclosed to granddaughter on telephone call (4) Diabetes mellitus type 2, uncontrolled: Plan: Chronic and stable- BSG 165 on admit. - Continue basal insulin with SSI added on. - A1c hemoglobin A1c 7.8 suggest fair diabetic control as outpatient (5) Chronic kidney disease, stage 3a: Plan: - Chronic and stableCr 1.26, appears to be about baseline. - Avoid nephrotoxins, renally dose medications as able. (6) Hyperlipidemia: Plan: - Continue statin, (7) Atrial tachycardia: Plan: - Per cardiology 05/15/22: She has had episodes of what appear to be atrial tachycardia. She also had an episode that the device logged as atrial fibrillation, but it appeared to actually be a normal rhythm with frequent ectopy. No true atrial fibrillation identified. Patient is asymptomatic. - Chronically anticoagulated with Eliquis for secondary CVA prevention. (8) CLL (chronic lymphocytic leukemia): Plan: - Chronic and stable no significant abnormalities of cell lines noted (9) Chronic obstructive pulmonary disease: Plan: - No evidence of acute exacerbation. - Continue home inhalers. (10) PA (obstructive sleep apnea): Plan: - Noncompliant/intolerant of CPAP. Plan - - SCDs, continue Eliquis for VTE ppx. - DNR/DNI. Consideration of acute rehab grand daughter Petty Larios [phone] Admission and Anticipated Discharge Date Admission Date: June 14, 2022 Subjective Patient has more fluent speech today although still gets stuck in some syllables. She is able to ambulate with physical therapy across the room. Physical Exam Physical Exam: Patient with persistent expressive aphasia this is improved. Left arm weakness otherwise physical exam is stable Patient states she ambulated across room with physical therapy Results & Data Results & Data ([facility]) Vital Signs (Past 12 Hours) Vital Signs Temp Pulse Pulse Resp BP Pulse Ox O2 Del Method 06/21/22 11:22 98.1 F 69 18 120/66 93 Room Air 06/21/22 08:25 72 06/21/22 08:01 97.7 F 68 18 110/67 93 Room Air 06/21/22 03:11 98.2 F 80 20 119/63 94 Room Air PG Care Time/CCT Total # of Minutes Spent Total Time Spent with Patient: Total time spent is greater than 50% in coordination of care (as documented) at patient's floor/unit and/or counseling patient: Coding Level of Care Code 67674 SUB INP/OBS CARE 2/35MIN Diagnoses Stroke-like symptoms R29.90 Carotid artery stenosis I65.29 Metastatic breast carcinoma C50.919 Diabetes mellitus type 2, uncontrolled E11.65 Coma presence: without coma Chronic kidney disease, stage 3a N18.31 Hyperlipidemia E78.2 Hyperlipidemia type: mixed hyperlipidemia Atrial tachycardia I47.1 CLL (chronic lymphocytic leukemia) C91.10 Chronic obstructive pulmonary disease J44.9 COPD type: unspecified COPD PA (obstructive sleep apnea) G47.33 (1) Diabetes mellitus type 2, uncontrolled Coma presence: without coma (2) Hyperlipidemia Hyperlipidemia type: mixed hyperlipidemia Qualified Code(s): E78.2 - Mixed hyperlipidemia (3) Chronic obstructive pulmonary disease COPD type: unspecified COPD Qualified Code(s): J44.9 - Chronic obstructive pulmonary disease, unspecified
[2022-06-21] MEDS: ROSUVASTATIN CALCIUM 20 MG TAB PO SCH (20:46)
[2022-06-21] MEDS: DONEPEZIL HCL 10 MG TAB PO SCH (20:47)
[2022-06-21] MEDS: ESCITALOPRAM OXALATE 10 MG TAB PO SCH (20:47)
[2022-06-21] MEDS: ALPRAZolam 0.5 MG TABLET PO PRN (20:47)
[2022-06-21] MEDS: OXYBUTYNIN CHLORIDE XL 5 MG TABCR PO SCH (20:47)
[2022-06-22] MEDS: DEXTROMETHORPHAN POLYMR COMPLX 30MG/5 ML BTL PO SCH ×2 (06:23→18:05)
[2022-06-22] MEDS: LEVOTHYROXINE SODIUM 75 MCG TABLET PO SCH (06:23)
[2022-06-22] MEDS: LANTUS PER UNIT CHARGE SQ SCH ×2 (08:47→20:55)
[2022-06-22] MEDS: INSULIN ASPART PER UNIT SC SCH ×4 (08:47→20:54)
[2022-06-22] MEDS: DOCUSATE SODIUM/SENNA 50/8.6MG TAB PO SCH (08:48)
[2022-06-22] MEDS: ANASTROZOLE 1 MG TAB PO SCH (08:48)
[2022-06-22] MEDS: CEROVITE ADV FORMULA TAB PO SCH (08:48)
[2022-06-22] MEDS: PANTOprazole 40 MG TAB PO SCH (08:48)
[2022-06-22] MEDS: APIXABAN 5 MG TABLET PO SCH ×2 (08:48→20:59)
[2022-06-22] MEDS: CHOLECALCIFEROL 5,000 UNITS 125 MCG TAB PO SCH (08:48)
[2022-06-22] MEDS: CLOPIDOGREL BISULFATE 75 MG TAB PO SCH (08:49)
--- NOTE | 2022-06-22 19:19 | Hospitalist Progress Note ---
Date of Service June 22, 2022 Assessment & Plan (1) Stroke-like symptoms: Plan: acute issues with systemic affects, suspect TIA neurology other considerations are discussions of conversion disorder or possibly pseudobulbar affect disorder On arrival patient was not a candidate for TNKase or thrombectomy. - CT head: There is no hemorrhage, mass effect, or evidence of acute territorial ischemia by CT criteria. 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 This is unchanged. * There is high-grade focal stenosis at the origin of the right P1 segment. A focus of moderate stenosis is seen in the left middle cervical artery. 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 These findings are similar to previous. 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 This is unchanged from previous. 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 This is unchanged. * There is moderate stenosis of the distal left common carotid artery. * There is moderate stenosis of the origin of the left vertebral artery. * Bony metastatic disease is seen in the manubrium of the sternum. - MRI,06/14/22 No acute intracranial abnormality. No acute or subacute infarct.. Involutional changes with extensive chronic microvascular ischemic disease.Chronic lacunar infarcts of the basal ganglia. - Echo without significant changes does have LVOT as previously noted - significant aphasia - Already on statin, Telestroke did not give recommendations regarding antiplatelet therapy. switching ASA to Plavix, - Telemetry for surveillance of episodes of atrial fibrillation. no concerns seen psychiatric consultation, possible pseudobulbar affect and previous strokes did start dextromethorphan as listed on clinical pharmacology as a possible treatment, may be antidotal but patient had some improvement in the first 24 hours continuing the Lexapro dosing with increased dosing 06/20 For iron and vitamin D deficiency Venfer given x1 vitamin D oral therapy started, concerned with constipation we will start oral iron therapy on the 06/22-patient needs placement Contacted at. Appeared to facilitate [facility] placement for rehab but patient declined initially based on her refusal for services On concern for accompanying pseudobulbar features Patient however [facility] (2) Carotid artery stenosis: Plan: Chronic and stable- On ASA, as well as Eliquis. switching ASA to Plavix. Angiography of neck and brain shows any changes. None of which by themselves does cause an ischemic event but likely the summation of these multiple stenoses in thromboses and aneurysms likely affecting her overall cerebral perfusion which may be leading to this prolonged TIA-like symptoms (3) Metastatic breast carcinoma: Plan: - Chronic and stable consider metastatic disease initial occurrence in 2009 with recurrence in 2020, mets to chest wall. - s/p wide local excision by surgery followed by radiation therapy and systemic therapy including hormonal therapy. - Continue anastrazole. Discussion of possible sternal metastasis was disclosed to granddaughter on telephone call (4) Diabetes mellitus type 2, uncontrolled: Plan: Chronic and stable- BSG 165 on admit. - Continue basal insulin with SSI added on. - A1c hemoglobin A1c 7.8 suggest fair diabetic control as outpatient (5) Chronic kidney disease, stage 3a: Plan: - Chronic and stableCr 1.26, appears to be about baseline. - Avoid nephrotoxins, renally dose medications as able. (6) Hyperlipidemia: Plan: - Continue statin, (7) Atrial tachycardia: Plan: - Per cardiology 05/15/22: She has had episodes of what appear to be atrial tachycardia. She also had an episode that the device logged as atrial fibrillation, but it appeared to actually be a normal rhythm with frequent ectopy. No true atrial fibrillation identified. Patient is asymptomatic. - Chronically anticoagulated with Eliquis for secondary CVA prevention. (8) CLL (chronic lymphocytic leukemia): Plan: - Chronic and stable no significant abnormalities of cell lines noted (9) Chronic obstructive pulmonary disease: Plan: - No evidence of acute exacerbation. - Continue home inhalers. (10) PA (obstructive sleep apnea): Plan: - Noncompliant/intolerant of CPAP. Plan - - SCDs, continue Eliquis for VTE ppx. - DNR/DNI. Consideration of acute rehab grand daughter Petty Larios [phone] Admission and Anticipated Discharge Date Admission Date: June 14, 2022 Subjective Patient has slightly improved speech noted. awaiting [facility] repsonse for [facility] placement Physical Exam Physical Exam: Head and ENT no thyroid enlargement trachea midline Cardiovascular S1-S2 are normal no S3 Lungs bilateral air entry fair no wheezing Abdomen soft nondistended positive bowel sounds no rebound tenderness Extremity shows trace edema Neurologically generalized weakness Skin shows no cyanosis Results & Data Results & [facility] ([facility]) Vital Signs (Past 12 Hours) Vital Signs Temp Pulse Pulse Resp BP Pulse Ox O2 Del Method 06/22/22 15:17 37.0 C 72 19 124/70 93 Room Air 06/22/22 11:46 36.8 C 69 18 118/69 93 Room Air 06/22/22 10:53 71 06/22/22 07:52 Room Air 06/22/22 07:24 36.9 C 75 17 120/70 92 Room Air PG Care Time/CCT Total # of Minutes Spent Total Time Spent with Patient: Total time spent is greater than 50% in coordination of care (as documented) at patient's floor/unit and/or counseling patient: Coding Level of Care Code 91484 SUB INP/OBS CARE 2/35MIN Diagnoses Stroke-like symptoms R29.90 Carotid artery stenosis I65.29 Metastatic breast carcinoma C50.919 Diabetes mellitus type 2, uncontrolled E11.65 Coma presence: without coma Chronic kidney disease, stage 3a N18.31 Hyperlipidemia E78.2 Hyperlipidemia type: mixed hyperlipidemia Atrial tachycardia I47.1 CLL (chronic lymphocytic leukemia) C91.10 Chronic obstructive pulmonary disease J44.9 COPD type: unspecified COPD PA (obstructive sleep apnea) G47.33 (1) Diabetes mellitus type 2, uncontrolled Coma presence: without coma (2) Hyperlipidemia Hyperlipidemia type: mixed hyperlipidemia Qualified Code(s): E78.2 - Mixed hyperlipidemia (3) Chronic obstructive pulmonary disease COPD type: unspecified COPD Qualified Code(s): J44.9 - Chronic obstructive pulmonary disease, unspecified
[2022-06-22] MEDS: ALPRAZolam 0.5 MG TABLET PO PRN (20:59)
[2022-06-22] MEDS: ESCITALOPRAM OXALATE 10 MG TAB PO SCH (21:00)
[2022-06-22] MEDS: DONEPEZIL HCL 10 MG TAB PO SCH (21:00)
[2022-06-22] MEDS: OXYBUTYNIN CHLORIDE XL 5 MG TABCR PO SCH (21:01)
[2022-06-22] MEDS: GABAPENTIN 300 MG CAP PO SCH (21:01)
[2022-06-22] MEDS: ROSUVASTATIN CALCIUM 20 MG TAB PO SCH (21:02)
[2022-06-22] MEDS: HEPARIN 100 UNIT/ML 5ML FLUSH FLUSH PRN (21:27)
[2022-06-23] MEDS: LEVOTHYROXINE SODIUM 75 MCG TABLET PO SCH (05:51)
[2022-06-23] MEDS: DEXTROMETHORPHAN POLYMR COMPLX 30MG/5 ML BTL PO SCH ×2 (05:51→17:31)
[2022-06-23] MEDS: APIXABAN 5 MG TABLET PO SCH ×2 (08:53→20:57)
[2022-06-23] MEDS: PANTOprazole 40 MG TAB PO SCH (08:53)
[2022-06-23] MEDS: CLOPIDOGREL BISULFATE 75 MG TAB PO SCH (08:53)
[2022-06-23] MEDS: DOCUSATE SODIUM/SENNA 50/8.6MG TAB PO SCH (08:53)
[2022-06-23] MEDS: CEROVITE ADV FORMULA TAB PO SCH (08:53)
[2022-06-23] MEDS: CHOLECALCIFEROL 5,000 UNITS 125 MCG TAB PO SCH (08:53)
[2022-06-23] MEDS: LANTUS PER UNIT CHARGE SQ SCH ×2 (08:57→20:49)
[2022-06-23] MEDS: ANASTROZOLE 1 MG TAB PO SCH (08:57)
[2022-06-23] MEDS: INSULIN ASPART PER UNIT SC SCH ×4 (08:58→20:48)
[2022-06-23] MEDS: ACETAMINOPHEN 325 MG TAB PO PRN (09:05)
[2022-06-23] MEDS: HEPARIN 100 UNIT/ML 5ML FLUSH FLUSH PRN (20:52)
[2022-06-23] MEDS: ALPRAZolam 0.5 MG TABLET PO PRN (20:56)
[2022-06-23] MEDS: ESCITALOPRAM OXALATE 10 MG TAB PO SCH (20:57)
[2022-06-23] MEDS: DONEPEZIL HCL 10 MG TAB PO SCH (20:57)
[2022-06-23] MEDS: GABAPENTIN 300 MG CAP PO SCH (20:58)
[2022-06-23] MEDS: OXYBUTYNIN CHLORIDE XL 5 MG TABCR PO SCH (20:58)
[2022-06-23] MEDS: ROSUVASTATIN CALCIUM 20 MG TAB PO SCH (20:59)
--- NOTE | 2022-06-23 23:12 | Hospitalist Progress Note ---
Date of Service June 23, 2022 Assessment & Plan (1) Stroke-like symptoms: Plan: acute issues with systemic affects, suspect TIA neurology other considerations are discussions of conversion disorder or possibly pseudobulbar affect disorder On arrival patient was not a candidate for TNKase or thrombectomy. - CT head: There is no hemorrhage, mass effect, or evidence of acute territorial ischemia by CT criteria. 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 This is unchanged. * There is high-grade focal stenosis at the origin of the right P1 segment. A focus of moderate stenosis is seen in the left middle cervical artery. 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 These findings are similar to previous. 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 This is unchanged from previous. 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 This is unchanged. * There is moderate stenosis of the distal left common carotid artery. * There is moderate stenosis of the origin of the left vertebral artery. * Bony metastatic disease is seen in the manubrium of the sternum. - MRI,06/14/22 No acute intracranial abnormality. No acute or subacute infarct.. Involutional changes with extensive chronic microvascular ischemic disease.Chronic lacunar infarcts of the basal ganglia. - Echo without significant changes does have LVOT as previously noted - significant aphasia - Already on statin, Telestroke did not give recommendations regarding antiplatelet therapy. switching ASA to Plavix, - Telemetry for surveillance of episodes of atrial fibrillation. no concerns seen psychiatric consultation, possible pseudobulbar affect and previous strokes did start dextromethorphan as listed on clinical pharmacology as a possible treatment, may be antidotal but patient had some improvement in the first 24 hours continuing the Lexapro dosing with increased dosing 06/20 For iron and vitamin D deficiency Venfer given x1 vitamin D oral therapy started, concerned with constipation we will start oral iron therapy on the 06/22-patient needs placement Contacted at. [facility]ared to [facility] for [facility] but patient declined initially based on her refusal for services On concern for accompanying pseudobulbar features Patient however approved for halfway facility placement 06/23-Case management working on placement to [facility] tomorrow (2) Carotid artery stenosis: Plan: Chronic and stable- On ASA, as well as Eliquis. switching ASA to Plavix. Angiography of neck and brain shows any changes. None of which by themselves does cause an ischemic event but likely the summation of these multiple stenoses in thromboses and aneurysms likely affecting her overall cerebral perfusion which may be leading to this prolonged TIA-like symptoms (3) Metastatic breast carcinoma: Plan: - Chronic and stable consider metastatic disease initial occurrence in 2009 with recurrence in 2020, mets to chest wall. - s/p wide local excision by surgery followed by radiation therapy and systemic therapy including hormonal therapy. - Continue anastrazole. Discussion of possible sternal metastasis was disclosed to granddaughter on telephone call (4) Diabetes mellitus type 2, uncontrolled: Plan: Chronic and stable- BSG 165 on admit. - Continue basal insulin with SSI added on. - A1c hemoglobin A1c 7.8 suggest fair diabetic control as outpatient (5) Chronic kidney disease, stage 3a: Plan: - Chronic and stableCr 1.26, appears to be about baseline. - Avoid nephrotoxins, renally dose medications as able. (6) Hyperlipidemia: Plan: - Continue statin, (7) Atrial tachycardia: Plan: - Per cardiology 05/15/22: She has had episodes of what appear to be atrial tachycardia. She also had an episode that the device logged as atrial fibrillation, but it appeared to actually be a normal rhythm with frequent ectopy. No true atrial fibrillation identified. Patient is asymptomatic. - Chronically anticoagulated with Eliquis for secondary CVA prevention. (8) CLL (chronic lymphocytic leukemia): Plan: - Chronic and stable no significant abnormalities of cell lines noted (9) Chronic obstructive pulmonary disease: Plan: - No evidence of acute exacerbation. - Continue home inhalers. (10) PA (obstructive sleep apnea): Plan: - Noncompliant/intolerant of CPAP. Plan - - SCDs, continue Eliquis for VTE ppx. - DNR/DNI. Consideration of acute rehab grand daughter Petty Larios [phone] Admission and Anticipated Discharge Date Admission Date: June 14, 2022 Subjective Patient has slightly improved speech noted. Patient not a candidate after peer to peer discussion regarding inpatient rehab placement Patient is approved for halfway facility Physical Exam Physical Exam: Head and ENT no thyroid enlargement trachea midline Cardiovascular S1-S2 are normal no S3 Lungs bilateral air entry fair no wheezing Abdomen soft nondistended positive bowel sounds no rebound tenderness Extremity shows trace edema Neurologically generalized weakness Skin shows no cyanosis Results & Data Results & Data ([facility]) Vital Signs (Past 12 Hours) Vital Signs Temp Pulse Pulse Resp BP Pulse Ox O2 Del Method 06/23/22 19:05 37.0 C 74 14 126/72 93 Room Air 06/23/22 16:21 36.6 C 77 20 144/80 H 94 Room Air 06/23/22 14:02 72 06/23/22 12:12 36.7 C 65 18 136/75 93 Room Air PG Care Time/CCT Total # of Minutes Spent Total Time Spent with Patient: Total time spent is greater than 50% in coordination of care (as documented) at patient's floor/unit and/or counseling patient: Coding Level of Care Code 67546 SUB INP/OBS CARE 2/35MIN Diagnoses Stroke-like symptoms R29.90 Carotid artery stenosis I65.29 Metastatic breast carcinoma C50.919 Diabetes mellitus type 2, uncontrolled E11.65 Coma presence: without coma Chronic kidney disease, stage 3a N18.31 Hyperlipidemia E78.2 Hyperlipidemia type: mixed hyperlipidemia Atrial tachycardia I47.1 CLL (chronic lymphocytic leukemia) C91.10 Chronic obstructive pulmonary disease J44.9 COPD type: unspecified COPD PA (obstructive sleep apnea) G47.33 (1) Diabetes mellitus type 2, uncontrolled Coma presence: without coma (2) Hyperlipidemia Hyperlipidemia type: mixed hyperlipidemia Qualified Code(s): E78.2 - Mixed hyperlipidemia (3) Chronic obstructive pulmonary disease COPD type: unspecified COPD Qualified Code(s): J44.9 - Chronic obstructive pulmonary disease, unspecified
[2022-06-24] MEDS: LEVOTHYROXINE SODIUM 75 MCG TABLET PO SCH (05:50)
[2022-06-24] MEDS: DEXTROMETHORPHAN POLYMR COMPLX 30MG/5 ML BTL PO SCH (05:50)
[2022-06-24] MEDS: DOCUSATE SODIUM/SENNA 50/8.6MG TAB PO SCH (09:19)
[2022-06-24] MEDS: APIXABAN 5 MG TABLET PO SCH (09:19)
[2022-06-24] MEDS: CEROVITE ADV FORMULA TAB PO SCH (09:19)
[2022-06-24] MEDS: PANTOprazole 40 MG TAB PO SCH (09:19)
[2022-06-24] MEDS: CLOPIDOGREL BISULFATE 75 MG TAB PO SCH (09:19)
[2022-06-24] MEDS: CHOLECALCIFEROL 5,000 UNITS 125 MCG TAB PO SCH (09:19)
[2022-06-24] MEDS: ANASTROZOLE 1 MG TAB PO SCH (09:22)
[2022-06-24] MEDS: INSULIN ASPART PER UNIT SC SCH ×2 (09:23→13:14)
[2022-06-24] MEDS: LANTUS PER UNIT CHARGE SQ SCH (09:24)
[2022-06-24] MEDS: ACETAMINOPHEN 325 MG TAB PO PRN (09:28)
[2022-06-24] MEDS: HEPARIN 100 UNIT/ML 5ML FLUSH FLUSH PRN (11:56)
[2022-06-24 12:47] VITALS: BP 127/75; TEMP 97.9; O2SAT 96
[2022-06-24 14:03] VITALS: PULSE 79
--- NOTE | 2022-06-25 18:41 | Discharge Summary ---
Date of Service June 25, 2022 Admission HPI Per Admitting Provider Sharon Ochoa is an 81-year-old female with a past medical history significant for prior CVA, atrial tachycardia, LVOT obstruction, breast cancer, CLL, COPD, PA intolerant to CPAP, DM2, CKD 3, hyperlipidemia, urinary incontinence, depression, and hypothyroidism is presenting today as a stroke alert. Patient's last known well was noon today. Later in the afternoon, patient was noted to have garbled speech, total weakness of left leg and noticeable weakness and left arm. She is brought in by EMS without family, BSG 200s in the field, BP on presentation 145/61, now slightly more hypertensive 185/81. Since presentation, her symptoms to start resolved. She is moving both left arm and leg better and is able to communicate in full sentences. Labs notable for white count of 11 with left shift, creatinine 1.26, baseline. Glucose 165. Without electrolyte abnormalities, troponin 10.9, no transaminitis. UA does not appear infected, negative for COVID. 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 This is unchanged. There is high-grade focal stenosis at the origin of the right P1 segment. A focus of moderate stenosis is seen in the left middle cervical artery. 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 These findings are similar to previous. 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 This is unchanged from previous. 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 This is unchanged. There is moderate stenosis of the distal left common carotid artery. There is moderate stenosis of the origin of the left vertebral artery. 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 Principal Diagnosis Strokelike symptoms Discharge Data Allergies Allergy/AdvReac Type Severity Reaction Status Date / Time adhesive Allergy Intermediate BLISTERS Verified 06/14/22 17:50 amitriptyline AdvReac Intermediate HALLUCINATI Verified 06/14/22 17:50 ONS atorvastatin AdvReac Intermediate JOINT PAIN Verified 06/14/22 17:50 cephalexin AdvReac Intermediate N/V Verified 06/14/22 17:50 codeine AdvReac Intermediate NAUSEA AND Verified 06/14/22 17:50 VOMITING doxycycline AdvReac Intermediate GI SYMPTOMS Verified 06/14/22 17:50 hydroxychloroquine AdvReac Intermediate Diarrhea Verified 06/14/22 17:50 [From Plaquenil] liraglutide AdvReac Intermediate GI UPSET Verified 06/14/22 17:50 phenol AdvReac Intermediate GI UPSET Verified 06/14/22 17:50 pioglitazone AdvReac Intermediate SEVERE Verified 06/14/22 17:50 FATIGUE tramadol AdvReac Intermediate N/V Verified 06/14/22 17:50 zoster vaccine live AdvReac Unknown Unknown Verified 06/14/22 17:50 [From Zostavax (PF)] Consultations 06/14/22 18:49 ED Decision to Admit Stat 06/15/22 14:06 Consult Neurology Routine 06/19/22 11:43 Consult Behavioral Health Liaison Routine Ordered Studies 06/14/22 16:43 CT angio head w con Stat CT angio neck with con Stat CT head/brain wo con Stat 06/14/22 21:39 MR brain wo con Routine 06/15/22 07:[address] [CT head/brain wo con] Stat 06/16/22 13:29 MR cervical spine wo con Routine Hospital Course (1) Stroke-like symptoms: acute issues with systemic affects, suspect TIA neurology other considerations are discussions of conversion disorder or possibly pseudobulbar affect disorder On arrival patient was not a candidate for TNKase or thrombectomy. - CT head: There is no hemorrhage, mass effect, or evidence of acute territorial ischemia by CT criteria. 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 This is unchanged. * There is high-grade focal stenosis at the origin of the right P1 segment. A focus of moderate stenosis is seen in the left middle cervical artery. 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 These findings are similar to previous. 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 This is unchanged from previous. 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 This is unchanged. * There is moderate stenosis of the distal left common carotid artery. * There is moderate stenosis of the origin of the left vertebral artery. * Bony metastatic disease is seen in the manubrium of the sternum. - MRI,06/14/22 No acute intracranial abnormality. No acute or subacute infarct.. Involutional changes with extensive chronic microvascular ischemic disease.Chronic lacunar infarcts of the basal ganglia. - Echo without significant changes does have LVOT as previously noted - significant aphasia - Already on statin, Telestroke did not give recommendations regarding antiplatelet therapy. switching ASA to Plavix, - Telemetry for surveillance of episodes of atrial fibrillation. no concerns seen psychiatric consultation, possible pseudobulbar affect and previous strokes did start dextromethorphan as listed on clinical pharmacology as a possible treatment, may be antidotal but patient had some improvement in the first 24 hours continuing the Lexapro dosing with increased dosing 06/20 For iron and vitamin D deficiency Venfer given x1 vitamin D oral therapy started, concerned with constipation we will start oral iron therapy on the 06/22-patient needs placement Contacted at. Appeared to [facility] for rehab but patient declined initially based on her refusal for services On concern for accompanying pseudobulbar features [facility]-Case management working on placement to [facility] tomorrow (2) Carotid artery stenosis: Chronic and stable- On ASA, as well as Eliquis. switching ASA to Plavix. Angiography of neck and brain shows any changes. None of which by themselves does cause an ischemic event but likely the summation of these multiple stenoses in thromboses and aneurysms likely affecting her overall cerebral perfusion which may be leading to this prolonged TIA-like symptoms (3) Metastatic breast carcinoma: - Chronic and stable consider metastatic disease initial occurrence in 2009 with recurrence in 2020, mets to chest wall. - s/p wide local excision by surgery followed by radiation therapy and systemic therapy including hormonal therapy. - Continue anastrazole. Discussion of possible sternal metastasis was disclosed to granddaughter on telephone call (4) Diabetes mellitus type 2, uncontrolled: Chronic and stable- BSG 165 on admit. - Continue basal insulin with SSI added on. - A1c hemoglobin A1c 7.8 suggest fair diabetic control as outpatient (5) Chronic kidney disease, stage 3a: - Chronic and stableCr 1.26, appears to be about baseline. - Avoid nephrotoxins, renally dose medications as able. (6) Hyperlipidemia: - Continue statin, (7) Atrial tachycardia: - Per cardiology 05/15/22: She has had episodes of what appear to be atrial tachycardia. She also had an episode that the device logged as atrial fibrillation, but it appeared to actually be a normal rhythm with frequent ectopy. No true atrial fibrillation identified. Patient is asymptomatic. - Chronically anticoagulated with Eliquis for secondary CVA prevention. (8) CLL (chronic lymphocytic leukemia): - Chronic and stable no significant abnormalities of cell lines noted (9) Chronic obstructive pulmonary disease: - No evidence of acute exacerbation. - Continue home inhalers. (10) PA (obstructive sleep apnea): - Noncompliant/intolerant of CPAP. Plan - - SCDs, continue Eliquis for VTE ppx. - DNR/DNI. Consideration of acute rehab grand daughter Petty Larios [phone] Total Time Total Time Spent Total Time Spent (In Minutes): 45 Discharge Plan Discharge Items Patient Disposition: Transfer [facility] Reason For Visit: CVA R/O Discharge Diagnosis: Stroke like symptoms, TIA Activity: Per Instructions section Non-emergency contact: Primary Care Provider Call non-emergency contact if: your symptoms worsen Follow-up/Referrals: Jennifer Ribera DO [Primary Care Provider] - Diet: Carb Consistent or DM2 and Heart Healthy Addtl Attending Provider Instructions: f/u pcp 1 week Pending Studies at Discharge: No Stand-Alone Forms: My Dapt[employer], Medications to Prevent Stroke Skilled Items Patient informed of condition?: Yes DNR: Yes Discharge Level of Care: Skilled Communicable Disease: No Discharge Prognosis: Stable Lines: Bustos Urinary Catheter: No Medications and DC Order Prescriptions: New clopidogrel 75 mg Tablet 75 mg PO QAM Qty: 30 0RF Rx Instructions: please send refills to PCP Continued Eliquis 5 mg tablet 5 mg PO BID rosuvastatin [Crestor] 20 mg tablet 20 mg PO HS Qty: 90 3RF (DME) Wheelchair (Powered) Device See Rx Instructions .Route Qty: 1 0RF Rx Instructions: "power mobility" (DME) Power Wheelchair Device See Rx Instructions .Route Qty: 1 0RF Rx Instructions: Evaluation for therapy power mobility (DME) OneTouch Ultra Test Strip See Rx Instructions .Route Qty: 300 1RF Rx Instructions: Test blood sugars TID (DME) diaper,brief,adult,disposable Misc See Rx Instructions .Route Qty: 60 5RF Rx Instructions: change when soiled - using 2 daily (DME) Underpads Regular Pad See Rx Instructions .Route Qty: 60 5RF Rx Instructions: change when soiled - using 2 daily (DME) Wheeled Walker Misc See Rx Instructions .Route Qty: 1 0RF Rx Instructions: As directed omeprazole 40 mg capsule,delayed release(DR/EC) 40 mg PO QAM Qty: 30 2RF alendronate 70 mg tablet 70 mg PO Q7D Rx Instructions: wednesdays lorazepam 0.5 mg tablet 0.5 mg PO TID PRN (Reason: Anxiety or muscle spasm) Qty: 30 0RF gabapentin 300 mg capsule See Rx Instructions .ROUTE .COMPLEX Rx Instructions: 300 mg orally; TAKES 300mg in am, 600mg HS (DME) pen needle, diabetic [BD Pratima 2nd Gen Pen Needle] 32 gauge x 5/32" needle See Rx Instructions .Route Qty: 100 3RF Rx Instructions: Use with insulin pen for injection (DME) Baldomero Awan See Rx Instructions .Route .MEDSUPPLY Qty: 1 0RF Rx Instructions: As directed aspirin 81 mg tablet,chewable 81 mg PO QAM PreserVision Lutein 226 mg-200 unit -5 mg-0.8 mg Capsule 1 cap PO QAM anastrozole 1 mg tablet 1 mg PO QAM donepezil 5 mg tablet 10 mg PO HS metformin 500 mg tablet extended release 24 hr 500 mg PO HS levothyroxine 75 mcg tablet 75 mcg PO QAM oxybutynin chloride 15 mg tablet extended release 24hr 15 mg PO QPM Changed insulin asp prt-insulin aspart [Novolog Mix 70-30FlexPen U-100] 100 unit/mL (70-30) insulin pen 30 unit SUBCUT BID Qty: 15 0RF Levemir FlexTouch U-100 Insuln 100 unit/mL (3 mL) insulin pen 20 unit SUBCUT QAM Qty: 15 0RF Discontinued vilazodone [Viibryd] 20 mg tablet 20 mg PO DAILY Qty: 90 3RF Rx Instructions: must administer with a meal/food hydrocodone-acetaminophen 5-325 mg tablet 1 - 2 tab PO DIRECTED PRN (Reason: Pain) Rx Instructions: 1-2 tabs every 4-6hrs as needed Discharge Orders: Discharge Order (Routine); Ordered 06/24/22 Ordered By: Elia Hale/Other Patient Handouts: Managing Type 2 Diabetes Admission Data Admit Date/Time: 06/14/22 19:28 Attending Provider: Elia Sarmiento Admit Provider: Angel Davalos Primary Care Provider: Jennifer Ribera Other Providers: Joss Bunch ; Clemente Arriaga ; [facility] Other Interventions: Discharge Summary Assessment (RN) Last Done: 06/24/22 14:01 Coding Level of Care Code HOSP INP/OBS DISCH >30 MIN Diagnoses Stroke-like symptoms R29.90 Carotid artery stenosis I65.29 Metastatic breast carcinoma C50.919 Diabetes mellitus type 2, uncontrolled E11.65 Coma presence: without coma Chronic kidney disease, stage 3a N18.31 Hyperlipidemia E78.2 Hyperlipidemia type: mixed hyperlipidemia Atrial tachycardia I47.1 CLL (chronic lymphocytic leukemia) C91.10 Chronic obstructive pulmonary disease J44.9 COPD type: unspecified COPD PA (obstructive sleep apnea) G47.33
--- NOTE | 2022-07-02 18:56 | Discharge Summary ---
Date of Service July 02, 2022 Admission HPI Per Admitting Provider Sharon Ochoa is an 81-year-old female with a past medical history significant for prior CVA, atrial tachycardia, LVOT obstruction, breast cancer, CLL, COPD, PA intolerant to CPAP, DM2, CKD 3, hyperlipidemia, urinary incontinence, depression, and hypothyroidism is presenting today as a stroke alert. Patient's last known well was noon today. Later in the afternoon, patient was noted to have garbled speech, total weakness of left leg and noticeable weakness and left arm. She is brought in by EMS without family, BSG 200s in the field, BP on presentation 145/61, now slightly more hypertensive 185/81. Since presentation, her symptoms to start resolved. She is moving both left arm and leg better and is able to communicate in full sentences. Labs notable for white count of 11 with left shift, creatinine 1.26, baseline. Glucose 165. Without electrolyte abnormalities, troponin 10.9, no transaminitis. UA does not appear infected, negative for COVID. 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 This is unchanged. There is high-grade focal stenosis at the origin of the right P1 segment. A focus of moderate stenosis is seen in the left middle cervical artery. 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 These findings are similar to previous. 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 This is unchanged from previous. 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 This is unchanged. There is moderate stenosis of the distal left common carotid artery. There is moderate stenosis of the origin of the left vertebral artery. 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 Principal Diagnosis CVA Discharge Exam Head and ENT no thyroid enlargement trachea midline Cardiovascular S1-S2 are normal no S3 Lungs bilateral air entry fair no wheezing Abdomen soft nondistended positive bowel sounds no rebound tenderness Extremity shows trace edema Neurologically generalized weakness Skin shows no cyanosis Discharge Data Allergies Allergy/AdvReac Type Severity Reaction Status Date / Time adhesive Allergy Intermediate BLISTERS Verified 06/14/22 17:50 amitriptyline AdvReac Intermediate HALLUCINATI Verified 06/14/22 17:50 ONS atorvastatin AdvReac Intermediate JOINT PAIN Verified 06/14/22 17:50 cephalexin AdvReac Intermediate N/V Verified 06/14/22 17:50 codeine AdvReac Intermediate NAUSEA AND Verified 06/14/22 17:50 VOMITING doxycycline AdvReac Intermediate GI SYMPTOMS Verified 06/14/22 17:50 hydroxychloroquine AdvReac Intermediate Diarrhea Verified 06/14/22 17:50 [From Plaquenil] liraglutide AdvReac Intermediate GI UPSET Verified 06/14/22 17:50 phenol AdvReac Intermediate GI UPSET Verified 06/14/22 17:50 pioglitazone AdvReac Intermediate SEVERE Verified 06/14/22 17:50 FATIGUE tramadol AdvReac Intermediate N/V Verified 06/14/22 17:50 zoster vaccine live AdvReac Unknown Unknown Verified 06/14/22 17:50 [From Zostavax (PF)] Consultations 06/14/22 18:49 ED Decision to Admit Stat 06/15/22 14:06 Consult Neurology Routine 06/19/22 11:43 Consult Behavioral Health Liaison Routine Ordered Studies 06/14/22 16:43 CT angio head w con Stat CT angio neck with con Stat CT head/brain wo con Stat 06/14/22 21:39 MR brain wo con Routine 06/15/22 07:[address] [CT head/brain wo con] Stat 06/16/22 13:29 MR cervical spine wo con Routine Hospital Course (1) Stroke-like symptoms: acute issues with systemic affects, suspect TIA neurology other considerations are discussions of conversion disorder or possibly pseudobulbar affect disorder On arrival patient was not a candidate for TNKase or thrombectomy. - CT head: There is no hemorrhage, mass effect, or evidence of acute territorial ischemia by CT criteria. 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 This is unchanged. * There is high-grade focal stenosis at the origin of the right P1 segment. A focus of moderate stenosis is seen in the left middle cervical artery. 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 These findings are similar to previous. 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 This is unchanged from previous. 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 This is unchanged. * There is moderate stenosis of the distal left common carotid artery. * There is moderate stenosis of the origin of the left vertebral artery. * Bony metastatic disease is seen in the manubrium of the sternum. - MRI,06/14/22 No acute intracranial abnormality. No acute or subacute infarct.. Involutional changes with extensive chronic microvascular ischemic disease.Chronic lacunar infarcts of the basal ganglia. - Echo without significant changes does have LVOT as previously noted - significant aphasia - Already on statin, Telestroke did not give recommendations regarding antiplatelet therapy. switching ASA to Plavix, - Telemetry for surveillance of episodes of atrial fibrillation. no concerns seen psychiatric consultation, possible pseudobulbar affect and previous strokes did start dextromethorphan as listed on clinical pharmacology as a possible treatment, may be antidotal but patient had some improvement in the first 24 hours continuing the Lexapro dosing with increased dosing 06/20 For iron and vitamin D deficiency Venfer given x1 vitamin D oral therapy started, concerned with constipation we will start oral iron therapy on the 06/22-patient needs placement Contacted at. Appeared to facilitate [facility] placement for rehab but patient declined initially based on her refusal for services On concern for accompanying pseudobulbar features Patient however approved for shelter facility placement 06/23-Case management working on placement to [facility] tomorrow 06/24 -patient has no acute complaints Being discharged to [facility] Prescription sent for the patientand discharge instructions provided (2) Carotid artery stenosis: Chronic and stable- On ASA, as well as Eliquis. switching ASA to Plavix. Angiography of neck and brain shows any changes. None of which by themselves does cause an ischemic event but likely the summation of these multiple stenoses in thromboses and aneurysms likely affecting her overall cerebral perfusion which may be leading to this prolonged TIA-like symptoms (3) Metastatic breast carcinoma: - Chronic and stable consider metastatic disease initial occurrence in 2009 with recurrence in 2020, mets to chest wall. - s/p wide local excision by surgery followed by radiation therapy and systemic therapy including hormonal therapy. - Continue anastrazole. Discussion of possible sternal metastasis was disclosed to granddaughter on telephone call (4) Diabetes mellitus type 2, uncontrolled: Chronic and stable- BSG 165 on admit. - Continue basal insulin with SSI added on. - A1c hemoglobin A1c 7.8 suggest fair diabetic control as outpatient (5) Chronic kidney disease, stage 3a: - Chronic and stableCr 1.26, appears to be about baseline. - Avoid nephrotoxins, renally dose medications as able. (6) Hyperlipidemia: - Continue statin, (7) Atrial tachycardia: - Per cardiology 05/15/22: She has had episodes of what appear to be atrial tachycardia. She also had an episode that the device logged as atrial fibrillation, but it appeared to actually be a normal rhythm with frequent ectopy. No true atrial fibrillation identified. Patient is asymptomatic. - Chronically anticoagulated with Eliquis for secondary CVA prevention. (8) CLL (chronic lymphocytic leukemia): - Chronic and stable no significant abnormalities of cell lines noted (9) Chronic obstructive pulmonary disease: - No evidence of acute exacerbation. - Continue home inhalers. (10) PA (obstructive sleep apnea): - Noncompliant/intolerant of CPAP. Plan - - SCDs, continue Eliquis for VTE ppx. - DNR/DNI. Consideration of acute rehab grand frida Larios [id number] Total Time Total Time Spent Total Time Spent (In Minutes): 45 Discharge Plan Discharge Items Patient Disposition: Transfer [facility] Reason For Visit: CVA R/O Discharge Diagnosis: Stroke like symptoms, TIA Activity: Per Instructions section Non-emergency contact: Primary Care Provider Call non-emergency contact if: your symptoms worsen Follow-up/Referrals: Jennifer Ribera DO [Primary Care Provider] - Diet: Carb Consistent or DM2 and Heart Healthy Addtl Attending Provider Instructions: f/u pcp 1 week Pending Studies at Discharge: No Stand-Alone Forms: My [employer], Medications to Prevent Stroke Skilled Items Patient informed of condition?: Yes DNR: Yes Discharge Level of Care: Skilled Communicable Disease: No Discharge Prognosis: Stable Lines: Bustos Urinary Catheter: No Medications and DC Order Prescriptions: New clopidogrel 75 mg Tablet 75 mg PO QAM Qty: 30 0RF Rx Instructions: please send refills to PCP Continued Eliquis 5 mg tablet 5 mg PO BID rosuvastatin [Crestor] 20 mg tablet 20 mg PO HS Qty: 90 3RF (DME) Wheelchair (Powered) Device See Rx Instructions .Route Qty: 1 0RF Rx Instructions: "power mobility" (DME) Power Wheelchair Device See Rx Instructions .Route Qty: 1 0RF Rx Instructions: Evaluation for therapy power mobility (DME) OneTouch Ultra Test Strip See Rx Instructions .Route Qty: 300 1RF Rx Instructions: Test blood sugars TID (DME) diaper,brief,adult,disposable Misc See Rx Instructions .Route Qty: 60 5RF Rx Instructions: change when soiled - using 2 daily (DME) Underpads Regular Pad See Rx Instructions .Route Qty: 60 5RF Rx Instructions: change when soiled - using 2 daily (DME) Wheeled Walker Misc See Rx Instructions .Route Qty: 1 0RF Rx Instructions: As directed omeprazole 40 mg capsule,delayed release(DR/EC) 40 mg PO QAM Qty: 30 2RF alendronate 70 mg tablet 70 mg PO Q7D Rx Instructions: wednesdays lorazepam 0.5 mg tablet 0.5 mg PO TID PRN (Reason: Anxiety or muscle spasm) Qty: 30 0RF gabapentin 300 mg capsule See Rx Instructions .ROUTE .COMPLEX Rx Instructions: 300 mg orally; TAKES 300mg in am, 600mg HS (DME) pen needle, diabetic [BD Pratima 2nd Gen Pen Needle] 32 gauge x 5/32" needle See Rx Instructions .Route Qty: 100 3RF Rx Instructions: Use with insulin pen for injection (DME) Baldomero Awan See Rx Instructions .Route .MEDSUPPLY Qty: 1 0RF Rx Instructions: As directed aspirin 81 mg tablet,chewable 81 mg PO QAM PreserVision Lutein 226 mg-200 unit -5 mg-0.8 mg Capsule 1 cap PO QAM anastrozole 1 mg tablet 1 mg PO QAM donepezil 5 mg tablet 10 mg PO HS metformin 500 mg tablet extended release 24 hr 500 mg PO HS levothyroxine 75 mcg tablet 75 mcg PO QAM oxybutynin chloride 15 mg tablet extended release 24hr 15 mg PO QPM Changed insulin asp prt-insulin aspart [Novolog Mix 70-30FlexPen U-100] 100 unit/mL (70-30) insulin pen 30 unit SUBCUT BID Qty: 15 0RF Levemir FlexTouch U-100 Insuln 100 unit/mL (3 mL) insulin pen 20 unit SUBCUT QAM Qty: 15 0RF Discontinued vilazodone [Viibryd] 20 mg tablet 20 mg PO DAILY Qty: 90 3RF Rx Instructions: must administer with a meal/food hydrocodone-acetaminophen 5-325 mg tablet 1 - 2 tab PO DIRECTED PRN (Reason: Pain) Rx Instructions: 1-2 tabs every 4-6hrs as needed No Action peg 3350-electrolytes [GaviLyte-G] 236-22.74-6.74 -5.86 gram recon soln 240 ml PO Q10M Qty: 4000 0RF Rx Instructions: until fecal effluent is clear Discharge Orders: Discharge Order (Routine); Ordered 06/24/22 Ordered By: Elia Sarmiento Admission Data Admit Date/Time: 06/14/22 19:28 Attending Provider: Elia Sarmiento Admit Provider: Angel Davalos Primary Care Provider: Jennifer Ribera Other Providers: Joss Bunch ; Clemente Arriaga ; [facility] Other Interventions: Discharge Summary Assessment (RN) Last Done: 06/24/22 14:01 Coding Level of Care Code HOSP INP/OBS DISCH >30 MIN Diagnoses Stroke-like symptoms R29.90 Carotid artery stenosis I65.29 Metastatic breast carcinoma C50.919 Diabetes mellitus type 2, uncontrolled E11.65 Coma presence: without coma Chronic kidney disease, stage 3a N18.31 Hyperlipidemia E78.2 Hyperlipidemia type: mixed hyperlipidemia Atrial tachycardia I47.1 CLL (chronic lymphocytic leukemia) C91.10 Chronic obstructive pulmonary disease J44.9 COPD type: unspecified COPD PA (obstructive sleep apnea) G47.33
== END 2022-06-24 14:57 ==
LOC: ED 17:02 → INTOOBSV 19:28 → 4W 19:28 → SUATTDRO 19:28 → 4W 21:43

== ENCOUNTER 2022-11-03 16:20 | Inpatient (IN) ==
[2022-11-03] MEDS ORDERED: SODIUM CHLORIDE 0.9% 500 ML IV STA (16:33)
--- NOTE | 2022-11-03 16:37 | Emergency Department Note ---
Impression & Plan Weakness ED Provider Note Provider: Jeffy Suresh MD DATE OF SERVICE: 11/03/2022 CHIEF COMPLAINT: Weak HISTORY OF PRESENT ILLNESS: Patient is a 82-year-old female history of CKD, atrial fib on Eliquis, type 2 diabetes, and CVA presenting here via ambulance from her home today reportedly for increased weakness. Was feeling well until yesterday when she developed recurrent nausea and vomiting episodes as well as some diarrhea. Today this has resolved but still having some loose stools and urinary incontinence overnight and a bit of a headache overnight. No headache now. Denies abdominal pain. Denies chest pain. Reports that she is coughing a bit of white phlegm. Denies significant shortness of breath. Denies leg swelling. Denies sick contact. Unsure if she taken her home medications today or not. Did not eat much at all today. Feeling very weak and even using the seat and a wheeled walker was difficult getting around at home and thus family who assist her at home called EMS to bring her here. PAST MEDICAL HISTORY: As noted above MEDICATIONS: Reviewed home medication list with the patient not sure if she took them today SOCIAL HISTORY: Lives at home with family PHYSICAL EXAM: GENERAL: alert and oriented in no acute distress on stretcher very fatigued in appearance Head: normocephalic and atraumatic EYES: No injection, discharge or icterus. NECK: Trachea midline. Supple. ENT: Mucous membranes pink and moist. LUNGS: Airway patent. No retractions. Breath sounds clear HEART: Regular rate and rhythm. No chest wall tenderness with left upper chest port appreciated subcutaneously. ABDOMEN: Soft and non-tender, without guarding or rebound. SKIN: Acyanotic, warm, dry, without rashes EXTREMITIES: Without swelling, tenderness or deformity NEUROLOGICAL: No focal deficits. No aphasia. No facial droop or slurred speech. Normal strength and tone in the extremities. Sensation to gross touch normal. EK bpm normal sinus rhythm. No PVC but PAC noted. No acute ST segment elevation or depression with some slight baseline artifact. QTc 509. CONTINUOUS CARDIAC MONITORING: was ordered and showed a heart rate of 80s-90s bpm in normal sinus rhythm with occasional PACs Patient's laboratory studies and imaging reviewed. Differential includes Infection, dehydration, metabolic abnormality, hypo/hyperglycemia, electrolyte disturbance, anemia, hypoxia, cardiac sources, intracerebral event, toxicologic, neurologic, as well as other pathologies. IMPRESSION/MEDICAL DECISION MAKING: Patient with some generalized weakness with nausea vomiting yesterday this is resolved without abdominal pain. Again no nausea or vomiting today reported. Some diarrhea and urinary incontinence reported. Headache last night but no other headache today or numbness or focal weakness. Bit of phlegmy cough but denies significant shortness of breath. Not hypoxic here. Did not take today had difficulty get around at home due to weakness generalized. Basic blood work and EKG to be obtained. Question a infectious etiology and as such blood cultures and lactate sent. Not hypoxic here and chest x-ray without findings of pneumonia or significant fluid overload. Blood work without anemia or leukocytosis. No severe electrolyte abnormalities signs of renal dysfunction. No evidence of hepatitis or pancreatitis. Negative COVID testing. Urinalysis returns without signs of infection. Procalcitonin minimally elevated 0.65. Does not appear meningitic. Do not see evidence of any significant cellulitis. We will complete a abdominal CT given her GI symptoms yesterday and the weakness and elevated procalcitonin. Generally fatigued on reassessment but benign abdomen without tenderness. CT report is reassuring without acute findings per radiology. Discussed with granddaughter via phone as well as the patient. Some sinus congestion but not sure this is enough to explain her symptoms of fatigue and weakness. Oxygen level does dip a little bit when she is resting in her sleep but states she is supposed to be on CPAP. Again anticoagulated and doubt PE. In discussion however I do not feel that she would be safe to go home given her weakness and will discuss with the hospitalist for further observation. DIAGNOSIS: Weakness, ambulatory dysfunction DISPOSITION: Hospitalist will evaluate Patient was agreeable with this plan. Past Med/Surg History Medical History Acute CVA (cerebrovascular accident) Acute exacerbation of chronic obstructive pulmonary disease (COPD) Aneurysm, cerebral, nonruptured Anxiety Asthma Atrial aneurysm Atrial fib/flutter, transient Atrial tachycardia Breast cancer Carotid artery stenosis Central stenosis of spinal canal Chronic kidney disease, stage 3a Chronic obstructive pulmonary disease Cirrhosis CLL (chronic lymphocytic leukemia) Coronary artery calcification Deep vein thrombosis Depression Diabetes mellitus type 2, uncontrolled Diabetic nephropathy Diabetic neuropathy Gastroesophageal reflux disease History of COVID-19 (~05/2021) History of CVA (cerebrovascular accident) Hx of sleep apnea Hyperlipidemia Hypertension Hypothyroidism Left hemiparesis Left ventricular outflow tract obstruction Lumbar radiculopathy Lumbar spinal stenosis Lumbar stenosis with neurogenic claudication Metastatic breast carcinoma Nonalcoholic steatohepatitis Osteopenia Polycythemia Recurrent cancer of right breast (08/13/20) Sensorineural hearing loss (SNHL) of both ears Stroke TIA (transient ischemic attack) TMJ syndrome Urinary frequency Vertebral artery stenosis Surgical History H/O varicose vein ligation and stripping History of appendectomy History of brain surgery History of breast lump/mass excision History of carotid endarterectomy History of cataract surgery History of colonoscopy History of hysterectomy History of mastectomy History of parathyroid surgery History of shoulder surgery History of total knee replacement Hx of excision of mass Hx of tonsillectomy Port-A-Cath in place (02/22/22) Family History Grandmother No problems noted. Father Lung disease Lung cancer Mother Cancer Hypertension Unknown Colon cancer Son Anxiety Depression Kidney stones Alcohol abuse Grandmother (Maternal) Lung cancer Sister COPD (chronic obstructive pulmonary disease) Son MVA (motor vehicle accident) Son Rheumatic fever Daughter Medical history unknown Denies family history of Ovarian cancer Prostate cancer Myocardial infarction Breast cancer Bleeding disorder Social History Smoking Status: Former smoker Tobacco Type: Cigarettes Age Started Using Tobacco: 16; Cigarettes Per Day: 1 pack every 2-3 days; Second Hand Exposure: Yes; Do You Dip or Chew Tobacco: No; Hx Alcohol Use: Yes Alcohol type: beer and other Hx Substance Use: No Preferred Language: Slovak Communication Ability: Effective Communication Ability Comment: Expressive Aphasia Visual Impairment: No Limitations Hearing Ability: Normal 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: No Beliefs That Will Affect Care: None marital status: Current Living Situation: Spouse current occupational status: retired 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 How many Children do You have: 4 How many Children do You have Comment: Pregnancies:6 Children:4 :1 Feels Safe at Home: Yes Childhood Exposure to Second-Hand Smoke: Yes Diet: regular Diet Comment: Regular caffeine: Yes during the past year weight has: remained stable Dental Care, Regularly: No Physical Activity Frequency: 3-4 Times per Week Physical Activity Frequency Comment: walking Seatbelt Use: never Assistive Devices: Denture - Upper, Denture - Lower and Glasses Allergies Allergies Allergy/AdvReac Type Severity Reaction Status Date / Time adhesive Allergy Intermediate BLISTERS Verified 10/16/22 10:14 amitriptyline AdvReac Intermediate HALLUCINATI Verified 10/16/22 10:14 ONS atorvastatin AdvReac Intermediate JOINT PAIN Verified 10/16/22 10:14 cephalexin AdvReac Intermediate N/V Verified 10/16/22 10:14 codeine AdvReac Intermediate NAUSEA AND Verified 10/16/22 10:14 VOMITING doxycycline AdvReac Intermediate GI SYMPTOMS Verified 10/16/22 10:14 hydroxychloroquine AdvReac Intermediate Diarrhea Verified 10/16/22 10:14 [From Plaquenil] liraglutide AdvReac Intermediate GI UPSET Verified 10/16/22 10:14 phenol AdvReac Intermediate GI UPSET Verified 10/16/22 10:14 pioglitazone AdvReac Intermediate SEVERE Verified 10/16/22 10:14 FATIGUE tramadol AdvReac Intermediate N/V Verified 10/16/22 10:14 zoster vaccine live AdvReac Unknown Unknown Verified 10/16/22 10:14 [From Zostavax (PF)] Home Meds Home Medications Medication Instructions Recorded Confirmed vit C 226 mg-vit E 90 mg-copper 1 cap PO QAM 09/04/18 10/16/22 0.8 mg-zinc oxide-lutein 5 mg capsule (PreserVision Lutein) aspirin 81 mg chewable tablet 81 mg PO QAM 01/21/19 10/16/22 anastrozole 1 mg tablet 1 mg PO QAM 01/19/21 10/16/22 apixaban 5 mg tablet (Eliquis) 5 mg PO BID 05/05/21 10/16/22 alendronate 70 mg tablet 70 mg PO Q7D 08/26/21 10/16/22 donepezil 5 mg tablet 10 mg PO HS 02/02/22 10/16/22 gabapentin 300 mg capsule 300 - 600 mg PO UD 06/12/22 10/16/22 levothyroxine 75 mcg tablet 75 mcg PO QAM 06/14/22 10/16/22 oxybutynin chloride 15 mg 15 mg PO HS 06/14/22 10/16/22 tablet,extended release 24 hr insulin aspar prot-insulin aspart 20 unit subcut BID 08/25/22 10/16/22 100 unit/mL (70-30) subcutaneous pen (Novolog Mix 70-30FlexPen U-100) rosuvastatin 20 mg tablet (Crestor) 10 mg PO HS 10/10/22 10/16/22 sertraline 50 mg tablet (Zoloft) 75 mg PO DAILY 10/16/22 10/16/22 Previous Rx's Medication Instructions Recorded Wheelchair (Powered) #1 ea 08/04/21 Wheelchair (Powered) (Power #1 ea 09/08/21 Wheelchair) lorazepam 0.5 mg tablet 0.5 mg PO TID PRN Anxiety or 12/04/21 muscle spasm #30 tabs blood sugar diagnostic (OneTouch #300 ea 12/21/21 Ultra Test strips) diaper,brief,adult,disposable #60 ea 05/24/22 incontinence pad, liner, disp #60 ea 05/24/22 (Underpads Regular) Wheeled Walker #1 ea 06/08/22 metformin 500 mg tablet,extended 500 mg PO HS #90 tabs 08/08/22 release 24 hr omeprazole 40 mg capsule,delayed 40 mg PO QAM #90 caps 08/09/22 release insulin detemir U-100 100 unit/mL 25 unit (0.25 mL) subcut QAM #30 mL 08/25/22 (3 mL) subcutaneous pen (Levemir FlexTouch U-100 Insulin) nicotine 14 mg/24 hr daily 1 patch transdermal DAILY #28 ea 10/16/22 transdermal patch nystatin 100,000 unit/mL oral 5 ml PO QID #200 mL 10/16/22 suspension pen needle, diabetic 32 gauge x #100 ea 10/30/22" (BD Pratima 2nd Gen Pen Needle) Results & Data (ED) Vital Signs Vital Signs - 24 hr 11/03/22 16:27 11/03/22 16:28 11/03/22 17:07 Temperature 36.6 C Temperature Source Oral Pulse Rate 83 88 Pulse Rate [Apical] 94 H Respiratory Rate 18 19 Respiratory Effort / Characteristics Non-Labored Spontaneous Respiratory Depth Normal Blood Pressure 151/125 H Blood Pressure [Right Arm] 151/125 H Blood Pressure Mean 133 Blood Pressure Mean [Right Arm] 133 Pulse Oximetry 93 98 Oxygen Delivery Method Room Air Room Air Oxygen Flow Rate Sepsis Recent Fever Within 48 Hours No Sepsis New/Unexplained Change in Mental Status N/A Sepsis Action Taken by Nursing No Action Required 11/03/22 19:11 11/03/22 20:22 11/03/22 20:22 Temperature Temperature Source Pulse Rate Pulse Rate [Apical] 93 H 89 Respiratory Rate 18 17 18 Respiratory Effort / Characteristics Non-Labored Respiratory Depth Normal Blood Pressure Blood Pressure [Right Arm] 189/95 H 183/90 H Blood Pressure Mean Blood Pressure Mean [Right Arm] 126 121 Pulse Oximetry 93 88 L 95 Oxygen Delivery Method Room Air Room Air Nasal Cannula Oxygen Flow Rate 2 Sepsis Recent Fever Within 48 Hours Sepsis New/Unexplained Change in Mental Status Sepsis Action Taken by Nursing 11/03/22 20:20 Temperature Temperature Source Pulse Rate 86 Pulse Rate [Apical] Respiratory Rate Respiratory Effort / Characteristics Respiratory Depth Blood Pressure Blood Pressure [Right Arm] Blood Pressure Mean Blood Pressure Mean [Right Arm] Pulse Oximetry Oxygen Delivery Method Oxygen Flow Rate Sepsis Recent Fever Within 48 Hours Sepsis New/Unexplained Change in Mental Status Sepsis Action Taken by Nursing Laboratory Data 11/03/22 16:49 11/03/22 16:49 Lab Results 11/03/22 11/03/22 11/03/22 Range/Units 16:49 16:49 16:49 WBC 8.52 (4.8-10.8) K/ul RBC 5.46 H (4.20-5.40) M/uL Hgb 14.4 (12.0-16.0) g/dl Hct 44.0 (37.0-47.0) % MCV 80.6 (80.0-100.0) fL MCH 26.4 (25.0-34.0) pg MCHC 32.7 (32.0-36.0) g/dL RDW Std Deviation 51.8 H (36.4-46.3) fL RDW Coeff of [place] 18.4 H (11.5-14.5) % Plt Count 249 (130-400) K/uL MPV 11.4 (9.4-12.4) fL Immature Gran % (Auto) 0.5 % Neut % (Auto) 76.0 % Lymph % (Auto) 11.9 % [place] % (Auto) 11.0 % Eos % (Auto) 0.5 % Baso % (Auto) 0.1 % Neut # (Auto) 6.48 (1.40-6.50) K/uL Lymph # (Auto) 1.01 L (1.2-3.4) K/uL [place] # (Auto) 0.94 H (0.11-0.59) K/uL Eos # (Auto) 0.04 (0-0.50) K/uL Baso # (Auto) 0.01 (0-0.2) K/uL Immature Gran # (Auto) 0.04 (0.01-0.20) K/uL Sodium 139 (136-145) mmol/L Potassium 3.8 (3.5-5.1) mmol/L Chloride 102 (98-107) mmol/L Carbon Dioxide 27 (21-32) mmol/L Anion Gap 10 (3-11) BUN 18 (6-23) mg/dl Creatinine 0.94 (0.6-1.2) mg/dl Est Cr Clr Drug Dosing 44.4 ml/min Est GFR ( Amer) 65.5 ml/min Est GFR (Non-Af Amer) 56.5 ml/min BUN/Creatinine Ratio 19.1 (10-20) Glucose 150 H (70-99(Fasting)) mg/dl Lactate 1.4 (0.4-2.0) mmol/L Calcium 9.3 (8.6-10.3) mg/dl Total Bilirubin 0.6 (0.2-1.0) mg/dl AST 27 (13-39) U/L ALT 15 (7-52) U/L Alkaline Phosphatase 63 (34-104) U/L Troponin I High Sens 10.5 (0-14) pg/ml Total Protein 7.0 (6.0-8.3) gm/dl Albumin 4.2 (3.4-5.0) gm/dl Globulin 2.8 (2.5-4.0) gm/dl Albumin/Globulin Ratio 1.5 (0.9-2) Lipase 16 (11-82) U/L Procalcitonin (0-0.5) ng/ml Urine Color Urine Appearance (Clear) Urine pH (4.5-7.5) Ur Specific [place] (1.000-1.030) Urine Protein (Negative) Urine Glucose (UA) (Negative) Urine Ketones (Negative) Urine Blood (Negative) Urine Nitrite (Negative) Urine Bilirubin (Negative) Urine Urobilinogen (Negative) Ur Leukocyte Esterase (Negative) Urine WBC (Auto) (0-5) /hpf Urine RBC (Auto) (0-4) /hpf U Hyaline Cast (Auto) (0-5) /lpf U Epithel Cells (Auto) (0-5) /lpf Urine Bacteria (Auto) (Negative) Lyme Disease IgG Ab (Negative) Lyme Disease IgM Ab (Negative) SARS-CoV-2, RNA, NAAT (NEGATIVE) 11/03/22 11/03/22 11/03/22 Range/Units 16:49 16:55 18:10 WBC (4.8-10.8) K/ul RBC (4.20-5.40) M/uL Hgb (12.0-16.0) g/dl Hct (37.0-47.0) % MCV (80.0-100.0) fL MCH (25.0-34.0) pg MCHC (32.0-36.0) g/dL RDW Std Deviation (36.4-46.3) fL RDW Coeff of [place] (11.5-14.5) % Plt Count (130-400) K/uL MPV (9.4-12.4) fL Immature Gran % (Auto) % Neut % (Auto) % Lymph % (Auto) % [place] % (Auto) % Eos % (Auto) % Baso % (Auto) % Neut # (Auto) (1.40-6.50) K/uL Lymph # (Auto) (1.2-3.4) K/uL [place] # (Auto) (0.11-0.59) K/uL Eos # (Auto) (0-0.50) K/uL Baso # (Auto) (0-0.2) K/uL Immature Gran # (Auto) (0.01-0.20) K/uL Sodium (136-145) mmol/L Potassium (3.5-5.1) mmol/L Chloride (98-107) mmol/L Carbon Dioxide (21-32) mmol/L Anion Gap (3-11) BUN (6-23) mg/dl Creatinine (0.6-1.2) mg/dl Est Cr Clr Drug Dosing ml/min Est GFR ( Amer) ml/min Est GFR (Non-Af Amer) ml/min BUN/Creatinine Ratio (10-20) Glucose (70-99(Fasting)) mg/dl Lactate (0.4-2.0) mmol/L Calcium (8.6-10.3) mg/dl Total Bilirubin (0.2-1.0) mg/dl AST (13-39) U/L ALT (7-52) U/L Alkaline Phosphatase (34-104) U/L Troponin I High Sens (0-14) pg/ml Total Protein (6.0-8.3) gm/dl Albumin (3.4-5.0) gm/dl Globulin (2.5-4.0) gm/dl Albumin/Globulin Ratio (0.9-2) Lipase (11-82) U/L Procalcitonin 0.65 H (0-0.5) ng/ml Urine Color Yellow Urine Appearance Clear (Clear) Urine pH 7.0 (4.5-7.5) Ur Specific [place] 1.016 (1.000-1.030) Urine Protein 1+ H (Negative) Urine Glucose (UA) Negative (Negative) Urine Ketones 1+ H (Negative) Urine Blood Negative (Negative) Urine Nitrite Negative (Negative) Urine Bilirubin Negative (Negative) Urine Urobilinogen Negative (Negative) Ur Leukocyte Esterase Negative (Negative) Urine WBC (Auto) 1-5 (0-5) /hpf Urine RBC (Auto) 0-4 (0-4) /hpf U Hyaline Cast (Auto) 0 (0-5) /lpf U Epithel Cells (Auto) 10-20 H (0-5) /lpf Urine Bacteria (Auto) Negative (Negative) Lyme Disease IgG Ab (Negative) Lyme Disease IgM Ab (Negative) SARS-CoV-2, RNA, NAAT NEGATIVE (NEGATIVE) 11/03/22 Range/Units 20:10 WBC (4.8-10.8) K/ul RBC (4.20-5.40) M/uL Hgb (12.0-16.0) g/dl Hct (37.0-47.0) % MCV (80.0-100.0) fL MCH (25.0-34.0) pg MCHC (32.0-36.0) g/dL RDW Std Deviation (36.4-46.3) fL RDW Coeff of [place] (11.5-14.5) % Plt Count (130-400) K/uL MPV (9.4-12.4) fL Immature Gran % (Auto) % Neut % (Auto) % Lymph % (Auto) % [place] % (Auto) % Eos % (Auto) % Baso % (Auto) % Neut # (Auto) (1.40-6.50) K/uL Lymph # (Auto) (1.2-3.4) K/uL [place] # (Auto) (0.11-0.59) K/uL Eos # (Auto) (0-0.50) K/uL Baso # (Auto) (0-0.2) K/uL Immature Gran # (Auto) (0.01-0.20) K/uL Sodium (136-145) mmol/L Potassium (3.5-5.1) mmol/L Chloride (98-107) mmol/L Carbon Dioxide (21-32) mmol/L Anion Gap (3-11) BUN (6-23) mg/dl Creatinine (0.6-1.2) mg/dl Est Cr Clr Drug Dosing ml/min Est GFR ( Amer) ml/min Est GFR (Non-Af Amer) ml/min BUN/Creatinine Ratio (10-20) Glucose (70-99(Fasting)) mg/dl Lactate (0.4-2.0) mmol/L Calcium (8.6-10.3) mg/dl Total Bilirubin (0.2-1.0) mg/dl AST (13-39) U/L ALT (7-52) U/L Alkaline Phosphatase (34-104) U/L Troponin I High Sens (0-14) pg/ml Total Protein (6.0-8.3) gm/dl Albumin (3.4-5.0) gm/dl Globulin (2.5-4.0) gm/dl Albumin/Globulin Ratio (0.9-2) Lipase (11-82) U/L Procalcitonin (0-0.5) ng/ml Urine Color Urine Appearance (Clear) Urine pH (4.5-7.5) Ur Specific [place] (1.000-1.030) Urine Protein (Negative) Urine Glucose (UA) (Negative) Urine Ketones (Negative) Urine Blood (Negative) Urine Nitrite (Negative) Urine Bilirubin (Negative) Urine Urobilinogen (Negative) Ur Leukocyte Esterase (Negative) Urine WBC (Auto) (0-5) /hpf Urine RBC (Auto) (0-4) /hpf U Hyaline Cast (Auto) (0-5) /lpf U Epithel Cells (Auto) (0-5) /lpf Urine Bacteria (Auto) (Negative) Lyme Disease IgG Ab Negative (Negative) Lyme Disease IgM Ab Negative (Negative) SARS-CoV-2, RNA, NAAT (NEGATIVE) Administered Medications Discontinued Medications Sodium Chloride (Nss) 500 mls @ 999 mls/hr IV .Q31M STA Stop: 11/03/22 17:03 Last Infusion: 11/03/22 17:58 Dose: 0 mls/hr Documented By: Admin: 11/03/22 17:24 Dose: 999 mls/hr Documented By: CYNDY Ioversol (Optiray 320 500ml) 90 ml IV ONCE ONE Stop: 11/03/22 20:05 Last Admin: 11/03/22 20:04 Dose: 90 ml Documented By: MOLLY Imaging Data Radiologist's Impression: Chest X-Ray 11/03/22 16:33 SINGLE VIEW CHEST CLINICAL HISTORY: Cough. Nausea and vomiting FINDINGS: An AP, portable, upright chest radiograph is compared to study dated 06/14/2022 and correlated with chest CT dated 05/26/2022. The examination is degraded by portable technique and patient rotation. A left internal jugular central venous infusion port is in place. The heart is enlarged. The pulmonary vasculature is noncongested. Subpleural reticulation is seen throughout both lungs. Chronic interstitial thickening is similar to previous. There is elevation of the right hemidiaphragm with bibasilar scarring/atelectasis. No airspace consolidation or large pleural effusion is identified. No pneumothorax is seen. The skeletal structures are osteopenic. The bony thorax is grossly intact. IMPRESSION: Cardiomegaly and chronic parenchymal changes as above with no acute cardiopulmonary abnormality identified. ACT 112: Negative or not required by law. Electronically signed by: Elliot Carolina M.D. 11/03/2022 5:04 PM Abdomen/Pelvis CT 11/03/22 19:27 Exam(s): CT ABDOMEN + PELVIS With Contrast IV Amt: 90ml optiray 320 EXAM: CT Abdomen and Pelvis With Intravenous Contrast CLINICAL HISTORY: Reason for exam: n/v/weak. TECHNIQUE: Axial computed tomography images of the abdomen and pelvis with intravenous contrast. CTDI is 26.92 mGy and DLP is 1246.05 mGy-cm. Automated exposure control was utilized for the study. A dose lowering technique was utilized adhering to the principles of ALARA. CONTRAST: Patient received 90ml optiray 320 of IV contrast COMPARISON: No relevant prior studies available. FINDINGS: Lung bases: Unremarkable. No mass. No consolidation. Heart: coronary artery calcifications. ABDOMEN: Liver: Unremarkable. No mass. Gallbladder and bile ducts: Cholelithiasis without evidence of acute cholecystitis. No ductal dilation. Pancreas: Unremarkable. No mass. No ductal dilation. Spleen: Unremarkable. No splenomegaly. Adrenals: 1 cm left adrenal gland nodule. 1.6 cm right adrenal gland nodule. Kidneys and ureters: Multiple left lower pole renal hypodensities measuring up to 1.1 cm. No hydronephrosis. Stomach and bowel: Unremarkable. No obstruction. No mucosal thickening. PELVIS: Appendix: No findings to suggest acute appendicitis. Bladder: Unremarkable. No mass. Reproductive: Uterus surgically absent. ABDOMEN and PELVIS: Intraperitoneal space: Unremarkable. No significant fluid collection. No free air or intestinal obstruction. Bones/joints: No acute fracture. No dislocation. Soft tissues: Unremarkable. Vasculature: See above. Lymph nodes: Unremarkable. No enlarged lymph nodes. IMPRESSION: 1. CT of the abdomen and pelvis negative for acute intra-abdominal pathology. No CT abnormality to explain the patient's reported symptoms. 2. Stable minor chronic findings as described above Electronically signed by: Andrey Glass MD 11/03/22 20:42 PM Discharge Plan Visit Data Chief Complaint: Illness Stated Complaint: GENERALIZED ILLNESS, N/V YESTERDAY ED Provider: Jeffy Suresh Discharge Problem: Weakness Patient Disposition: Being Evaluated by Hospitalist Forms Stand Alone Forms: My [facility] Grok It - Smartphone RFID Prescriptions Prescriptions: No Action Eliquis 5 mg tablet 5 mg PO BID (DME) Wheelchair (Powered) Device See Rx Instructions .Route Qty: 1 0RF Rx Instructions: "power mobility" (DME) Power Wheelchair Device See Rx Instructions .Route Qty: 1 0RF Rx Instructions: Evaluation for therapy power mobility (DME) OneTouch Ultra Test Strip See Rx Instructions .Route Qty: 300 1RF Rx Instructions: Test blood sugars TID (DME) diaper,brief,adult,disposable Misc See Rx Instructions .Route Qty: 60 5RF Rx Instructions: change when soiled - using 2 daily (DME) Underpads Regular Pad See Rx Instructions .Route Qty: 60 5RF Rx Instructions: change when soiled - using 2 daily (DME) Wheeled Walker Misc See Rx Instructions .Route Qty: 1 0RF Rx Instructions: As directed metformin 500 mg tablet extended release 24 hr 500 mg PO HS Qty: 90 1RF omeprazole 40 mg capsule,delayed release(DR/EC) 40 mg PO QAM Qty: 90 1RF (DME) pen needle, diabetic [BD Pratima 2nd Gen Pen Needle] 32 gauge x 5/32" needle See Rx Instructions .Route Qty: 100 3RF Rx Instructions: Use with insulin pen for injection alendronate 70 mg tablet 70 mg PO Q7D Rx Instructions: wednesdays lorazepam 0.5 mg tablet 0.5 mg PO TID PRN (Reason: Anxiety or muscle spasm) Qty: 30 0RF gabapentin 300 mg capsule 300 - 600 mg PO UD Rx Instructions: 300 mg orally; TAKES 300mg in am, 600mg HS insulin asp prt-insulin aspart [Novolog Mix 70-30FlexPen U-100] 100 unit/mL (70-30) insulin pen 20 unit SUBCUT BID Levemir FlexTouch U100 Insulin 100 unit/mL (3 mL) insulin pen 25 unit SUBCUT QAM Qty: 30 3RF nystatin 100,000 unit/mL suspension 5 ml PO QID Qty: 200 1RF Rx Instructions: swish and swallow nicotine 14 mg/24 hr patch 24 hour 1 patch transdermal DAILY Qty: 28 0RF rosuvastatin [Crestor] 20 mg tablet 10 mg PO HS sertraline [Zoloft] 50 mg tablet 75 mg PO DAILY aspirin 81 mg tablet,chewable 81 mg PO QAM PreserVision Lutein 226 mg-200 unit -5 mg-0.8 mg Capsule 1 cap PO QAM anastrozole 1 mg tablet 1 mg PO QAM donepezil 5 mg tablet 10 mg PO HS levothyroxine 75 mcg tablet 75 mcg PO QAM oxybutynin chloride 15 mg tablet extended release 24hr 15 mg PO HS Referrals Referrals: Jennifer Ribera, DO [Primary Care Provider] -
--- NOTE | 2022-11-03 17:06 | XRay Report ---
SINGLE VIEW CHEST CLINICAL HISTORY: Cough. Nausea and vomiting FINDINGS: An AP, portable, upright chest radiograph is compared to study dated 06/14/2022 and correlat ed with chest CT dated 05/26/2022. The examination is degraded by portable technique and patient rota tion. A left internal jugular central venous infusion port is in place. The heart is enlarged. The pu lmonary vasculature is noncongested. Subpleural reticulation is seen throughout both lungs. Chronic i nterstitial thickening is similar to previous. There is elevation of the right hemidiaphragm with bib asilar scarring/atelectasis. No airspace consolidation or large pleural effusion is identified. No pn eumothorax is seen. The skeletal structures are osteopenic. The bony thorax is grossly intact. IMPRESSION: Cardiomegaly and chronic parenchymal changes as above with no acute cardiopulmonary abnor mality identified. ACT 112: Negative or not required by law. Electronically signed by: Elliot Carolina M.D. 11/03/2022 5:04 PM
[2022-11-03 17:07] LABS: Basophils # (auto) 0.01 K/uL (0-0.2); Basophils % (auto) 0.1 %; Eosinophils # (auto) 0.04 K/uL (0-0.50); Eosinophils % (auto) 0.5 %; Hemoglobin 14.4 g/dl (12.0-16.0); Immature Granulocytes # (auto) 0.04 K/uL (0.01-0.20); Immature Granulocytes % (auto) 0.5 %; Lymphocytes # (auto) 1.01 K/uL (1.2-3.4); Lymphocytes % (auto) 11.9 %; Mean Corpuscular Hemoglobin 26.4 pg (25.0-34.0); Mean Corpuscular Hgb Conc 32.7 g/dL (32.0-36.0); Mean Corpuscular Volume 80.6 fL (80.0-100.0); Mean Platelet Volume 11.4 fL (9.4-12.4); Monocytes # (auto) 0.94 K/uL (0.11-0.59); Neutrophils # (auto) 6.48 K/uL (1.40-6.50); Platelet Count 249 K/uL (130-400); RDW Coefficient of Variation 18.4 % (11.5-14.5); RDW Standard Deviation 51.8 fL (36.4-46.3); Red Blood Count 5.46 M/uL (4.20-5.40); White Blood Count 8.52 K/ul (4.8-10.8)
[2022-11-03 17:26] LABS: Albumin Globulin Ratio 1.5 (0.9-2); Albumin Level 4.2 gm/dl (3.4-5.0); BUN Creatinine Ratio 19.1 (10-20); Bilirubin,Total 0.6 mg/dl (0.2-1.0); Calcium 9.3 mg/dl (8.6-10.3); Creatinine Clr Calc Pharmacy 44.4 ml/min; Est GFR (African American) 65.5 ml/min; Est GFR (Non-African American) 56.5 ml/min; Globulin 2.8 gm/dl (2.5-4.0); Potassium 3.8 mmol/L (3.5-5.1)
[2022-11-03 17:32] LABS: Troponin I High Sensitivity 10.5 pg/ml (0-14)
[2022-11-03 18:22] LABS: Appearance Urine Clear (Clear); Bacteria Urine Automated Negative (Negative); Bilirubin Urine Negative (Negative); Blood Urine Negative (Negative); Cast Urine Automated 0 /lpf (0-5); Color Urine Yellow; Glucose Urine UA Negative (Negative); Ketones Urine 1+ (Negative); Leukocyte Esterase Urine Negative (Negative); Nitrite Urine Negative (Negative); Protein Urine 1+ (Negative); RBC Urine Automated 0-4 /hpf (0-4); Specific Gravity Urine 1.016 (1.000-1.030); Urobilinogen Urine Negative (Negative)
[2022-11-03] MEDS ORDERED: OPTIRAY 320 500ml IV ONE (20:04)
--- NOTE | 2022-11-03 20:43 | CT Scan Report ---
Exam(s): CT ABDOMEN + PELVIS With Contrast IV Amt: 90ml optiray 320 EXAM: CT Abdomen and Pelvis With Intravenous Contrast CLINICAL HISTORY: Reason for exam: n/v/weak. TECHNIQUE: Axial computed tomography images of the abdomen and pelvis with intravenous contrast. CTDI is 26.92 mGy and DLP is 1246.05 mGy-cm. Automated exposure control was utilized for the study. A dose lowering technique was utilized adhering to the principles of ALARA. CONTRAST: Patient received 90ml optiray 320 of IV contrast COMPARISON: No relevant prior studies available. FINDINGS: Lung bases: Unremarkable. No mass. No consolidation. Heart: coronary artery calcifications. ABDOMEN: Liver: Unremarkable. No mass. Gallbladder and bile ducts: Cholelithiasis without evidence of acute cholecystitis. No ductal dilation. Pancreas: Unremarkable. No mass. No ductal dilation. Spleen: Unremarkable. No splenomegaly. Adrenals: 1 cm left adrenal gland nodule. 1.6 cm right adrenal gland nodule. Kidneys and ureters: Multiple left lower pole renal hypodensities measuring up to 1.1 cm. No hydronephrosis. Stomach and bowel: Unremarkable. No obstruction. No mucosal thickening. PELVIS: Appendix: No findings to suggest acute appendicitis. Bladder: Unremarkable. No mass. Reproductive: Uterus surgically absent. ABDOMEN and PELVIS: Intraperitoneal space: Unremarkable. No significant fluid collection. No free air or intestinal obstruction. Bones/joints: No acute fracture. No dislocation. Soft tissues: Unremarkable. Vasculature: See above. Lymph nodes: Unremarkable. No enlarged lymph nodes. IMPRESSION: 1. CT of the abdomen and pelvis negative for acute intra-abdominal pathology. No CT abnormality to explain the patient's reported symptoms. 2. Stable minor chronic findings as described above Electronically signed by: Andrey Glass MD 11/03/22 20:42 PM
[2022-11-03 20:48] LABS: Lyme Ab IgG w/WB Rflx Negative (Negative); Lyme Ab IgM w/WB Rflx Negative (Negative)
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
[2022-11-03] MEDS ORDERED: POLYETHYLENE (MIRALAX) 17 GM PACK PO PRN (23:57)
[2022-11-03] MEDS ORDERED: GLUCOSE 40% GEL 15 GM TUBE PO PRN (23:57)
[2022-11-03] MEDS ORDERED: AZITHROMYCIN 250 MG TAB PO ONE (23:57)
[2022-11-03] MEDS ORDERED: GLUCOSE 10 TAB/TUBE PO PRN (23:57)
[2022-11-03] MEDS ORDERED: CARBOHYDRATES FOR HYPOGLYCEMIA PO PRN (23:57)
[2022-11-03] MEDS ORDERED: SODIUM CHLORIDE 0.45 % 1,000 ML IV SCH (23:57)
[2022-11-03] MEDS ORDERED: DEXTROSE 50% 50 ML SYRINGE IV PRN (23:57)
[2022-11-03] MEDS ORDERED: ONDANSETRON INJ 2 MG/ML 2 ML VIAL IV PRN (23:57)
[2022-11-03] MEDS ORDERED: GLUCAGON FOR INJ 1 MG VIAL SQ PRN (23:57)
[2022-11-04] MEDS: ALBUT/IPRATROP 3MG/0.5MG NEB 3 ML VIAL INH SCH ×4 (01:31→19:33)
[2022-11-04] MEDS: LEVOTHYROXINE SODIUM 75 MCG TABLET PO SCH (06:24)
[2022-11-04 07:19] LABS: Basophils # (auto) 0.01 K/uL (0-0.2); Basophils % (auto) 0.1 %; Eosinophils # (auto) 0.18 K/uL (0-0.50); Eosinophils % (auto) 2.2 %; Hematocrit (blood only) 43.6 % (37.0-47.0); Hemoglobin 13.9 g/dl (12.0-16.0); Immature Granulocytes # (auto) 0.03 K/uL (0.01-0.20); Immature Granulocytes % (auto) 0.4 %; Lymphocytes # (auto) 0.89 K/uL (1.2-3.4); Lymphocytes % (auto) 10.9 %; Mean Corpuscular Hemoglobin 26.3 pg (25.0-34.0); Mean Corpuscular Hgb Conc 31.9 g/dL (32.0-36.0); Mean Corpuscular Volume 82.4 fL (80.0-100.0); Mean Platelet Volume 11.5 fL (9.4-12.4); Monocytes # (auto) 1.04 K/uL (0.11-0.59); Monocytes % (auto) 12.7 %; Neutrophils # (auto) 6.01 K/uL (1.40-6.50); Neutrophils % (auto) 73.7 %; Platelet Count 236 K/uL (130-400); RDW Coefficient of Variation 18.8 % (11.5-14.5); RDW Standard Deviation 54.7 fL (36.4-46.3); Red Blood Count 5.29 M/uL (4.20-5.40); White Blood Count 8.16 K/ul (4.8-10.8)
[2022-11-04 07:32] LABS: BUN Creatinine Ratio 21.3 (10-20); Calcium 8.9 mg/dl (8.6-10.3); Creatinine Clr Calc Pharmacy 42.3 ml/min; Est GFR (African American) 65.5 ml/min; Est GFR (Non-African American) 56.5 ml/min; Potassium 3.7 mmol/L (3.5-5.1)
[2022-11-04] MEDS: BUDESONIDE 0.5 MG/2 ML VIAL (PULMICORT) NEB SCH ×2 (07:55→19:33)
[2022-11-04] MEDS: FORMOTEROL 20 MCG/2 ML VIAL NEB SCH ×2 (07:55→19:33)
[2022-11-04] MEDS: NICOTINE 14 MG/24 HR PATCH TD SCH (08:24)
[2022-11-04] MEDS: SERTRALINE HCL 50 MG TABLET PO SCH (08:24)
[2022-11-04] MEDS: APIXABAN 5 MG TABLET PO SCH ×2 (08:25→22:21)
[2022-11-04] MEDS: ANASTROZOLE 1 MG TAB PO SCH (08:25)
[2022-11-04] MEDS: AZITHROMYCIN 250 MG TAB PO SCH (08:26)
[2022-11-04] MEDS: ASPIRIN 81 MG CHEW PO SCH (08:26)
[2022-11-04] MEDS: PANTOprazole 40 MG TAB PO SCH (08:26)
[2022-11-04] MEDS: predniSONE 20 MG TAB PO SCH (08:27)
[2022-11-04] MEDS ORDERED: LANTUS PER UNIT CHARGE SQ SCH (09:00)
[2022-11-04] MEDS ORDERED: PHARMACY GLYCEMIC MGMT CONSULT PRN (09:00)
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
[2022-11-04] MEDS ORDERED: LANTUS PER UNIT CHARGE SQ ONE ×3 (10:00→22:45)
--- NOTE | 2022-11-04 10:17 | Pharmacy Report ---
Pharmacy Glycemic Short Note 2 - Date of Service November 04, 2022 - Glycemic Short BSG Results (Last 24 hours): 11/03/22 11/04/22 16:49 06:55 Glucose 150 H 155 H OUTPATIENT ANTIDIABETIC REGIMEN: * Levemir 25 units SQ daily * Novolog mix 70/30 20 units with breakfast and dinner * A1c = 7.8% (06/15/22) ASSESSMENT: * Sharon is a 82 yo T2DM admitted with generalized weakness and COPD exacerbation. * Pharmacy was consulted to assist in BSG management in the setting of steroids. Ordered prednisone 40 mg PO daily. * Patient takes a total of 65 units of insulin at home. Will stress her home dose due to likelihood of steroid induced hyperglycemia. * Novolog parameters based on weight/stress 3 for now. PLAN FOR INPATIENT GLYCEMIC CONTROL: * Hold outpatient oral diabetes medications * Basal insulin * Lantus 25 units SQ this morning * Lantus 0-10-15 units SQ tonight - dose per BSG scale * Bolus insulin * NovoLog per scale ACHS or Q6hrs while NPO * Goal Range: Low 120 mg/dL - High 150 mg/dL * Correction Factor: 20 mg/dL/unit * Nutritional / Prandial insulin per carb ratio of 1 unit per 6 grams CHO consumed
[2022-11-04] MEDS ORDERED: SODIUM CHLORIDE 0.9% 1000ML 1,000 ML IV ONE (11:01)
[2022-11-04] MEDS: HEPARIN 100 UNIT/ML 5ML FLUSH FLUSH PRN (11:06)
[2022-11-04 11:07] LABS: Base Excess VBG 3.5 mEq/L; HCO3 VBG 29 mmol/L; Oxygen Saturation VBG 66.4 %; PCO2 VBG 47 mmHg (38-50); PO2 VBG 36 mmHg
[2022-11-04] MEDS: INSULIN ASPART PER UNIT CHARGE SC SCH ×4 (11:28→21:54)
--- NOTE | 2022-11-04 12:03 | CT Scan Report ---
CT OF THE HEAD WITHOUT CONTRAST CLINICAL HISTORY: speech change, around 24 hours COMPARISON STUDY: MRI of the brain and head CT June 15, 2022. CT DOSE: 1258.89 mGy.cm TECHNIQUE: Helical axial images of the head were obtained without IV contrast. Automated exposure con trol was utilized for the study. A dose lowering technique was utilized adhering to the principles o f ALARA. FINDINGS: No acute intracranial hemorrhage, midline shift or mass effect is present. White matter hyp odensities are similar to prior exam and favor small vessel disease. 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 A hypodensity within the right basal ganglia is unchanged. There has b een no change in appearance of the brain. 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 The ventricular system is unremarkable. The basal cisterns are patent. No extra-axial collections ar e present. There are no findings to suggest acute dural sinus thrombosis or acute territorial infarct . No significant calvarial abnormalities are present. Visualized portions of the sinuses and mastoid air cells are clear. IMPRESSION: No acute intracranial findings. No change in appearance of the brain. ACT 112: Negative or not required by law. Electronically signed by: Manolo Rueda M.D. 11/04/2022 12:02 PM
[2022-11-04 12:19] LABS: Adenovirus F 40/41 PCR Not Detected (NotDetected); Astrovirus PCR Not Detected (NotDetected); Campylobacter PCR Not Detected (NotDetected); Cryptosporidium PCR Not Detected (NotDetected); Cyclospora cayetanensis PCR Not Detected (NotDetected); Entamoeba histolytica PCR Not Detected (NotDetected); Enteroaggregative E.coli(EAEC) Not Detected (NotDetected); Enteropathogenic E.coli (EPEC) Not Detected (NotDetected); Giardia lamblia PCR Not Detected (NotDetected); Plesiomonas shigelloides PCR Not Detected (NotDetected); Rotavirus A PCR Not Detected (NotDetected); Salmonella PCR Not Detected (NotDetected); Sapovirus PCR Not Detected (NotDetected); Shiga-like Toxin E.coli (STEC) Not Detected (NotDetected); Shigella/Enteroinvasive E.coli Not Detected (NotDetected); Vibrio cholerae PCR Not Detected (NotDetected); Vibrio species PCR Not Detected (NotDetected); Yersinia enterocolitica PCR Not Detected (NotDetected)
--- NOTE | 2022-11-04 12:19 | CT Scan Report ---
CT OF THE CHEST WITHOUT IV CONTRAST CLINICAL HISTORY: hypoxia, lethargy COMPARISON STUDY: Chest CT May 26, 2022. Chest radiograph November 03, 2022. PET/CT August 09, 2022. TECHNIQUE: Axial images of the chest were obtained without IV contrast. Images were reviewed in the axial, sagittal, and coronal planes. IV contrast was not administered for this examination. Automat ed exposure control was utilized for the study. A dose lowering technique was utilized adhering to t he principles of ALARA. FINDINGS: A left internal jugular Wirpxr-d-Tcre is in place. No enlarged axillary, mediastinal or hi lar lymph nodes are present. There is trace pericardial fluid. Moderate cardiomegaly is noted. A righ t chest wall/breast seroma is again noted. This is chronic. There is no pneumothorax. Subpleural opac ities within lungs favor atelectasis. There is no consolidation to suggest pneumonia. Subpleural reti culation within the right lung likely reflects posttreatment change. Several old right-sided rib frac tures are present. Note is again made of sclerosis within the manubrium. This was shown on prior CT. No new sclerotic lesions are identified. There is a gallstone within the gallbladder. A 2.3 cm low-at tenuation right adrenal gland lesion remains unchanged. This represents an adenoma. IMPRESSION: 1. Subpleural opacities within the lungs suggestive of atelectasis. No consolidation to suggest pneum onia. 2. Moderate cardiomegaly. 3. No thoracic lymphadenopathy. 4. Sclerosis within the manubrium, as shown on prior chest CT. This is nonspecific however favor a po sttraumatic or degenerative in etiology. Although less likely, a sclerotic metastasis remains within the differential and therefore continued imaging follow-up is recommended to ensure expected evolutio n. ACT 112: Negative or not required by law. Electronically signed by: Manolo Rueda M.D. 11/04/2022 12:17 PM
[2022-11-04 12:23] LABS: Enterotoxigenic E.coli (ETEC) DETECTED (NotDetected); Norovirus GI/GII PCR DETECTED (NotDetected)
[2022-11-04] MEDS: guaiFENesin 600 MG TABCR PO SCH ×2 (12:50→22:20)
--- NOTE | 2022-11-04 20:06 | Billing Data ---
Date of Service November 04, 2022 Coding Level of Care Code 79526 INT INP/OBS CARE
[2022-11-04] MEDS: DONEPEZIL HCL 10 MG TAB PO SCH (22:21)
[2022-11-04] MEDS: ROSUVASTATIN CALCIUM 10 MG TAB PO SCH (22:22)
[2022-11-04] MEDS: OXYBUTYNIN CHLORIDE XL 5 MG TABCR PO SCH (22:22)
[2022-11-04] MEDS: LANTUS PER UNIT CHARGE SQ ONE ×2 (22:50→22:53)
[2022-11-05] MEDS: ALBUT/IPRATROP 3MG/0.5MG NEB 3 ML VIAL INH SCH ×4 (00:08→19:52)
[2022-11-05] MEDS ORDERED: INSULIN ASPART PER UNIT CHARGE SC ONE (02:00)
[2022-11-05] MEDS: LEVOTHYROXINE SODIUM 75 MCG TABLET PO SCH (05:59)
--- NOTE | 2022-11-05 06:36 | Electrocardiogram Report ---
Test Reason : Blood Pressure : / mmHG Vent. Rate : 086 BPM Atrial Rate : 000 BPM P-R Int : 000 ms QRS Dur : 068 ms QT Int : 400 ms P-R-T Axes : 000 -17 063 degrees QTc Int : 479 ms Sinus rhythm Premature supraventricular complexes Prolonged QT Abnormal ECG When compared with ECG of 14-JUN-2022 17:29, Nonspecific T wave abnormality no longer evident in Inferior leads Confirmed by Mohit Avilez ([id number]) on 11/05/2022 6:36:31 AM Referred By: REFERRED SELF Confirmed By:Mohit Avilez
[2022-11-05 07:19] LABS: Basophils # (auto) 0.01 K/uL (0-0.2); Basophils % (auto) 0.1 %; Eosinophils # (auto) 0.07 K/uL (0-0.50); Eosinophils % (auto) 0.7 %; Hematocrit (blood only) 39.1 % (37.0-47.0); Hemoglobin 12.5 g/dl (12.0-16.0); Immature Granulocytes # (auto) 0.05 K/uL (0.01-0.20); Immature Granulocytes % (auto) 0.5 %; Lymphocytes # (auto) 1.35 K/uL (1.2-3.4); Mean Corpuscular Hemoglobin 26.2 pg (25.0-34.0); Mean Platelet Volume 11.8 fL (9.4-12.4); Monocytes # (auto) 0.85 K/uL (0.11-0.59); Monocytes % (auto) 8.8 %; Neutrophils # (auto) 7.34 K/uL (1.40-6.50); Neutrophils % (auto) 75.9 %; Platelet Count 233 K/uL (130-400); RDW Standard Deviation 52.9 fL (36.4-46.3); Red Blood Count 4.77 M/uL (4.20-5.40); White Blood Count 9.67 K/ul (4.8-10.8)
[2022-11-05 07:25] LABS: BUN Creatinine Ratio 20.8 (10-20); Calcium 8.5 mg/dl (8.6-10.3); Creatinine Clr Calc Pharmacy 41.9 ml/min; Est GFR (African American) 63.8 ml/min; Est GFR (Non-African American) 55.1 ml/min; Potassium 3.1 mmol/L (3.5-5.1)
[2022-11-05] MEDS: BUDESONIDE 0.5 MG/2 ML VIAL (PULMICORT) NEB SCH ×2 (07:44→19:52)
[2022-11-05] MEDS: FORMOTEROL 20 MCG/2 ML VIAL NEB SCH ×2 (07:44→19:52)
[2022-11-05] MEDS: INSULIN ASPART PER UNIT CHARGE SC SCH ×5 (07:55→21:43)
[2022-11-05] MEDS: LANTUS PER UNIT CHARGE SC SCH ×2 (07:56→21:43)
[2022-11-05] MEDS: ASPIRIN 81 MG CHEW PO SCH (08:01)
[2022-11-05] MEDS: NICOTINE 14 MG/24 HR PATCH TD SCH (08:01)
[2022-11-05] MEDS: guaiFENesin 600 MG TABCR PO SCH ×2 (08:01→21:42)
[2022-11-05] MEDS: AZITHROMYCIN 250 MG TAB PO SCH (08:01)
[2022-11-05] MEDS ORDERED: SODIUM CHLORIDE 0.9% 1000ML 1,000 ML IV ONE ×2 (08:01→14:57)
[2022-11-05] MEDS: APIXABAN 5 MG TABLET PO SCH ×2 (08:01→21:42)
[2022-11-05] MEDS: PANTOprazole 40 MG TAB PO SCH (08:01)
[2022-11-05] MEDS: ANASTROZOLE 1 MG TAB PO SCH (08:01)
[2022-11-05] MEDS: SERTRALINE HCL 50 MG TABLET PO SCH (08:01)
[2022-11-05] MEDS: predniSONE 20 MG TAB PO SCH (08:02)
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
[2022-11-05] MEDS ORDERED: POTASSIUM CHLORIDE CRTAB 20 MEQ TABCR PO STA (08:08)
[2022-11-05 08:42] LABS: Estimated Average Glucose 183 mg/dl
[2022-11-05] MEDS ORDERED: AZITHROMYCIN 250 MG TAB PO SCH (09:00)
--- NOTE | 2022-11-05 13:04 | XRay Report ---
XR chest 1V portable CLINICAL HISTORY: serial exam, AHRF TECHNIQUE: Single frontal radiograph of the chest was obtained. Comparison: Comparison is made to chest radiograph 11/03/2022 FINDINGS: A port catheter is seen. Loop recorder is seen. Calcified aortic knob is seen. The lungs are clear. N o evidence of pleural effusion or pneumothorax. IMPRESSION: No acute chest disease. ACT 112: Negative or not required by law. Electronically signed by: Gustavo Gaines M.D. 11/05/2022 1:03 PM
--- NOTE | 2022-11-05 15:01 | Pharmacy Report ---
Pharmacy Glycemic Short Note 2 - Date of Service November 05, 2022 - Glycemic Short BSG Results (Last 24 hours): 11/04/22 11/04/22 11/04/22 16:23 18:29 20:12 Glucose POC Glucose 238 H 293 H 243 H 11/05/22 11/05/22 11/05/22 02:20 06:29 07:29 Glucose 122 H POC Glucose 158 H 113 H 11/05/22 11:15 Glucose POC Glucose 151 H OUTPATIENT ANTIDIABETIC REGIMEN: * Levemir 25 units SQ daily * Novolog mix 70/30 20 units with breakfast and dinner * A1c = 7.8% (06/15/22) ASSESSMENT: 11/05/22 * Sharon received 61 units of insulin yesterday (40 units Lantus + 21 units Novolog) * Fasting BSG of 113 mg/dL. Yesterday's regimen was highly basal weighted - will back off Lantus today. * Post prandial BSGs improved today following slight tightening of carb coverage. Patient remains on prednisone 40 mg daily. Background: * Sharon is a 82 yo T2DM admitted with generalized weakness and COPD exacerbation. * Pharmacy was consulted to assist in BSG management in the setting of steroids. Ordered prednisone 40 mg PO daily. * Patient takes a total of 65 units of insulin at home. Will stress her home dose due to likelihood of steroid induced hyperglycemia. * Novolog parameters based on weight/stress 3 for now. PLAN FOR INPATIENT GLYCEMIC CONTROL: * Hold outpatient oral diabetes medications * Basal insulin * Lantus 10-15-20 units SQ BID- dose per BSG scale * Bolus insulin * NovoLog per scale ACHS or Q6hrs while NPO * Goal Range: Low 120 mg/dL - High 150 mg/dL * Correction Factor: 20 mg/dL/unit * Nutritional / Prandial insulin per carb ratio of 1 unit per 5 grams CHO consumed
[2022-11-05] MEDS: ROSUVASTATIN CALCIUM 10 MG TAB PO SCH (21:41)
[2022-11-05] MEDS: DONEPEZIL HCL 10 MG TAB PO SCH (21:41)
[2022-11-05] MEDS: OXYBUTYNIN CHLORIDE XL 5 MG TABCR PO SCH (21:42)
[2022-11-05] MEDS: ACETAMINOPHEN 325 MG TAB PO PRN (23:32)
[2022-11-06] MEDS ORDERED: INSULIN ASPART PER UNIT CHARGE SC ONE (02:00)
[2022-11-06] MEDS: LEVOTHYROXINE SODIUM 75 MCG TABLET PO SCH (06:04)
[2022-11-06 06:57] LABS: Basophils # (auto) 0.02 K/uL (0-0.2); Basophils % (auto) 0.2 %; Eosinophils # (auto) 0.05 K/uL (0-0.50); Eosinophils % (auto) 0.4 %; Hematocrit (blood only) 39.3 % (37.0-47.0); Hemoglobin 12.5 g/dl (12.0-16.0); Immature Granulocytes # (auto) 0.06 K/uL (0.01-0.20); Immature Granulocytes % (auto) 0.5 %; Lymphocytes # (auto) 2.19 K/uL (1.2-3.4); Mean Corpuscular Hemoglobin 26.3 pg (25.0-34.0); Mean Corpuscular Hgb Conc 31.8 g/dL (32.0-36.0); Mean Corpuscular Volume 82.6 fL (80.0-100.0); Mean Platelet Volume 11.3 fL (9.4-12.4); Monocytes # (auto) 0.76 K/uL (0.11-0.59); Monocytes % (auto) 6.2 %; Neutrophils % (auto) 74.7 %; Platelet Count 253 K/uL (130-400); RDW Coefficient of Variation 18.6 % (11.5-14.5); RDW Standard Deviation 55.2 fL (36.4-46.3); Red Blood Count 4.76 M/uL (4.20-5.40); White Blood Count 12.18 K/ul (4.8-10.8)
[2022-11-06 07:17] LABS: BUN Creatinine Ratio 22.2 (10-20); Calcium 8.6 mg/dl (8.6-10.3); Creatinine Clr Calc Pharmacy 41.2 ml/min; Est GFR (African American) 61.5 ml/min; Est GFR (Non-African American) 53.1 ml/min; Potassium 3.6 mmol/L (3.5-5.1)
[2022-11-06] MEDS: FORMOTEROL 20 MCG/2 ML VIAL NEB SCH ×2 (07:19→19:09)
[2022-11-06] MEDS: BUDESONIDE 0.5 MG/2 ML VIAL (PULMICORT) NEB SCH ×2 (07:19→19:09)
[2022-11-06] MEDS: guaiFENesin 600 MG TABCR PO SCH ×2 (08:20→20:41)
[2022-11-06] MEDS: ANASTROZOLE 1 MG TAB PO SCH (08:20)
[2022-11-06] MEDS: APIXABAN 5 MG TABLET PO SCH ×2 (08:20→20:40)
[2022-11-06] MEDS: AZITHROMYCIN 250 MG TAB PO SCH (08:20)
[2022-11-06] MEDS: ASPIRIN 81 MG CHEW PO SCH (08:20)
[2022-11-06] MEDS: PANTOprazole 40 MG TAB PO SCH (08:20)
[2022-11-06] MEDS: SERTRALINE HCL 50 MG TABLET PO SCH (08:20)
[2022-11-06] MEDS: LANTUS PER UNIT CHARGE SC SCH ×2 (08:21→20:41)
[2022-11-06] MEDS: INSULIN ASPART PER UNIT CHARGE SC SCH ×4 (08:21→20:41)
[2022-11-06] MEDS: predniSONE 20 MG TAB PO SCH (08:21)
[2022-11-06] MEDS: NICOTINE 14 MG/24 HR PATCH TD SCH (08:21)
--- NOTE | 2022-11-06 15:47 | Hospitalist Progress Note ---
Date of Service November 06, 2022 Assessment & Plan (1) Generalized weakness: Plan: Due to volume depletion from gastroenteritis. Continue OT and PT. Improved. CT Head without evidence of CVA or other acute pathology. CT Chest, abdomen, and pelvis without evidence of acute pathology. Fall precautions in place. (2) Infectious gastroenteritis: Plan: Norovirus and enterotoxigenic E. coli isolated. Supportive care. This should be self-limiting. C. difficile study negative. (3) Acute exacerbation of chronic obstructive pulmonary disease (COPD): Plan: Improved. Azithromycin will be completed November 07 and prednisone taper completed November 08. Continue albuterol nebs, Pulmicort Respules. Continue home nicotine patch. (4) Atrial fib/flutter, transient: Plan: Stable. Continue Eliquis. Telemetry (5) Chronic kidney disease, stage 3a: Plan: Monitor intake and output. Serial labs. Stable (6) Diabetes mellitus type 2, uncontrolled: Plan: ADA diet. Basal insulin therapy. Sliding scale coverage. A1c 8.0% (7) EMILY (iron deficiency anemia): Plan: Hgb 12.5 on admission. No evidence of bleeding (8) Hypothyroidism: Plan: Stable. Continue levothyroxine (9) PA (obstructive sleep apnea): Plan: She is having sleep difficulty. We will consult pulmonary medicine while she is hospitalized. (10) Recurrent cancer of right breast: Plan: Stable. No intervention necessary at this time. Neck CTA 05/2022 suspicious for bony metastatic disease seen in the manubrium of the sternum. Recent PET scan did not show any uptake consistent with malignancy. Continue home anastrazole. Outpatient follow up with Oncology (11) Urinary incontinence: Plan: Stable. Continue home oxybutynin Plan Anticipate eventual discharge to IPR or SNF facility. Admission and Anticipated Discharge Date Admission Date: November 03, 2022 Subjective Alert and oriented. No acute distress. She has obstructive sleep apnea and is having some problems with sleeping at night. Pulmonology consultation requested. She has norovirus enteritis along with enterotoxigenic E. coli isolated. She states her bowel movements have improved. Mild hypokalemia has been corrected. C. difficile negative. Prednisone will be tapered off on November 08 and azithromycin discontinued November 07. Probable SNF or IPR at Review of Systems Review of Systems: Constitutional-no fever or chills ENT-no blurred vision, no double vision, no epistaxis, no sore throat Respiratory-no cough, no wheezing, no shortness of breath Cardiac-no palpitations, no chest pain, no syncope GI-no nausea, vomiting, diarrhea, melena, hematochezia -no urinary retention, no urinary incontinence, no dysuria, no hematuria Musculoskeletal-no joint pain, no muscle tenderness Skin-no bruising, no rashes, no pruritus Neuro-no isolated weakness, no paresthesia, no weakness Psych-no depression, no anxiety Physical Exam Physical Exam: General-alert and oriented x3, no fevers, no chills HEENT-head atraumatic and normocephalic, pupils equal and reactive to light, extraocular muscles intact Neck-no lymphadenopathy or thyromegaly, trachea midline Chest-clear to auscultation percussion. No rales wheezing or rhonchi Cardiac-regular rate and rhythm, normal S1 and S2 Abdomen-normal bowel sounds, nontender, no hepatosplenomegaly Extremities-no cyanosis, clubbing, or edema Neuro-cranial nerves II through XII intact, motor and sensory function within normal limits, strength symmetrical , no focal deficits Psych-normal affect, normal mood Results & Data Results & Data Vital Signs (Past 12 Hours) Vital Signs Temp Pulse Pulse Resp BP Pulse Ox O2 Del Method 11/06/22 15:13 36.5 C 102 H 20 110/67 93 Room Air 11/06/22 12:00 36.6 C 71 22 127/70 94 Room Air 11/06/22 07:39 37.0 C 74 20 151/75 H 96 Room Air 11/06/22 07:00 72 11/06/22 07:20 66 17 97 Room Air FiO2 11/06/22 15:13 11/06/22 12:00 11/06/22 07:39 11/06/22 07:00 11/06/22 07:20 21 Laboratory Results 11/06/22 06:33 11/06/22 06:33 PG Care Time/CCT Total # of Minutes Spent Total Time Spent with Patient: Total time spent is greater than 50% in coordination of care (as documented) at patient's floor/unit and/or counseling patient: Coding Level of Care Code 03861 SUB INP/OBS CARE 3/50MIN Diagnoses Generalized weakness R53.1 Infectious gastroenteritis A09 Acute exacerbation of chronic obstructive pulmonary disease (COPD) J44.1 Atrial fib/flutter, transient Chronic kidney disease, stage 3a N18.31 Diabetes mellitus type 2, uncontrolled E11.65 Coma presence: without coma EMILY (iron deficiency anemia) D50.9 Hypothyroidism E03.9 Hypothyroidism type: unspecified PA (obstructive sleep apnea) G47.33 Recurrent cancer of right breast C50.911 Urinary incontinence R32 (6) Diabetes mellitus type 2, uncontrolled Coma presence: without coma (8) Hypothyroidism Hypothyroidism type: unspecified Qualified Code(s): E03.9 - Hypothyroidism, unspecified
--- NOTE | 2022-11-06 16:23 | Pulmonary Consultation ---
Date of Consultation November 06, 2022 Assessment & Plan (1) PA (obstructive sleep apnea): Plan Impression: 82-year-old female with mild sleep disordered breathing. She is having difficulty acclimating to CPAP as per Dr. Osuna's last clinical note. Recommendations: 1. Sleep disordered breathing: Management is an outpatient issue and is unlikely to be adequately addressed in the inpatient setting as we do not have a large supply of masks for the patient's to try. Unfortunately the only mask that we have here in the hospital is a full facemask and if the patient is having claustrophobic issues associated with this particular interface. She will need to follow-up with her [employer] company to evaluate alternative interfaces. In addition given the borderline nature of the patient's sleep disordered breathing, it is unclear whether or not she requires therapy. A risk benefit discussion can be held with her outpatient sleep provider. She did have significant hypoxemia and its unclear whether or not supplemental oxygen at night for her underlying nocturnal hypoxemia unrelated to sleep disordered breathing might be appropriate. The patient is not a candidate for alternative therapy such as mandibular advancement devices given her edentulous nature and her body mass index and borderline degree of sleep disordered breathing would exclude her for a possible hypoglossal nerve stimulator. If continued PAP therapy is desired, an in lab titration might be appropriate. 2. Weight loss may be curative given the mild nature of her sleep disordered breathing. 3. Recommend the patient follow-up with Dr. Osuna at discharge to discuss further. Nothing further to offer as an inpatient. Will sign off. Thanks for the consult. We will sign off. Feel free to contact us if we can be of additional assistance History of Present Illness Attending Physician: Jorge Alberto Mahan MD History of Present Illness Asked by hospitalist to assist in evaluation management of sleep disordered breathing in this patient admitted with weakness and gastroenteritis as well as transient atrial fibrillation. The patient has a history of sleep apnea and is actually established with Dr. Osuna in the outpatient setting. She was seen there in July. At that point time she was transitioned to conventional CPAP. She reportedly was prescribed CPAP but has not yet received the machine due to logistical issues. She initially was placed on auto titrating CPAP and then most recently transitioned to conventional CPAP at 7 cmH2O. It is unclear if she was ever given supplemental oxygen. The patient states that they attempted to use fullface CPAP on her while here in the hospital. She was intolerant to the mask. She inquires about a nasal mask. She is edentulous. Allergies Allergy/AdvReac Type Severity Reaction Status Date / Time adhesive Allergy Intermediate BLISTERS Verified 10/16/22 10:14 amitriptyline AdvReac Intermediate HALLUCINATI Verified 10/16/22 10:14 ONS atorvastatin AdvReac Intermediate JOINT PAIN Verified 10/16/22 10:14 cephalexin AdvReac Intermediate N/V Verified 10/16/22 10:14 codeine AdvReac Intermediate NAUSEA AND Verified 10/16/22 10:14 VOMITING doxycycline AdvReac Intermediate GI SYMPTOMS Verified 10/16/22 10:14 hydroxychloroquine AdvReac Intermediate Diarrhea Verified 10/16/22 10:14 [From Plaquenil] liraglutide AdvReac Intermediate GI UPSET Verified 10/16/22 10:14 phenol AdvReac Intermediate GI UPSET Verified 10/16/22 10:14 pioglitazone AdvReac Intermediate SEVERE Verified 10/16/22 10:14 FATIGUE tramadol AdvReac Intermediate N/V Verified 10/16/22 10:14 zoster vaccine live AdvReac Unknown Unknown Verified 10/16/22 10:14 [From Zostavax (PF)] Home Medications Medication Instructions Recorded Confirmed Type vit C 226 mg-vit E 90 mg-copper 1 cap PO QAM 09/04/18 10/16/22 History 0.8 mg-zinc oxide-lutein 5 mg capsule (PreserVision Lutein) aspirin 81 mg chewable tablet 81 mg PO QAM 01/21/19 10/16/22 History anastrozole 1 mg tablet 1 mg PO QAM 01/19/21 10/16/22 History apixaban 5 mg tablet (Eliquis) 5 mg PO BID 05/05/21 10/16/22 History Wheelchair (Powered) #1 ea 08/04/21 10/16/22 Rx alendronate 70 mg tablet 70 mg PO Q7D 08/26/21 10/16/22 History Wheelchair (Powered) (Power #1 ea 09/08/21 10/16/22 Rx Wheelchair) lorazepam 0.5 mg tablet 0.5 mg PO TID PRN Anxiety or 12/04/21 10/16/22 Rx muscle spasm #30 tabs blood sugar diagnostic (OneTouch #300 ea 12/21/21 10/16/22 Rx Ultra Test strips) donepezil 5 mg tablet 10 mg PO HS 02/02/22 10/16/22 History diaper,brief,adult,disposable #60 ea 05/24/22 10/16/22 Rx incontinence pad, liner, disp #60 ea 05/24/22 10/16/22 Rx (Underpads Regular) Wheeled Walker #1 ea 06/08/22 10/16/22 Rx gabapentin 300 mg capsule 300 - 600 mg PO UD 06/12/22 10/16/22 History levothyroxine 75 mcg tablet 75 mcg PO QAM 06/14/22 10/16/22 History oxybutynin chloride 15 mg 15 mg PO HS 06/14/22 10/16/22 History tablet,extended release 24 hr metformin 500 mg tablet,extended 500 mg PO HS #90 tabs 08/08/22 10/16/22 Rx release 24 hr omeprazole 40 mg capsule,delayed 40 mg PO QAM #90 caps 08/09/22 10/16/22 Rx release insulin aspar prot-insulin aspart 20 unit subcut BID 08/25/22 10/16/22 History 100 unit/mL (70-30) subcutaneous pen (Novolog Mix 70-30FlexPen U-100) insulin detemir U-100 100 unit/mL 25 unit (0.25 mL) subcut QAM #30 mL 08/25/22 10/16/22 Rx (3 mL) subcutaneous pen (Levemir FlexTouch U-100 Insulin) rosuvastatin 20 mg tablet (Crestor) 10 mg PO HS 10/10/22 10/16/22 History nicotine 14 mg/24 hr daily 1 patch transdermal DAILY #28 ea 10/16/22 10/16/22 Rx transdermal patch nystatin 100,000 unit/mL oral 5 ml PO QID #200 mL 10/16/22 10/16/22 Rx suspension sertraline 50 mg tablet (Zoloft) 75 mg PO DAILY 10/16/22 10/16/22 History pen needle, diabetic 32 gauge x #100 ea 10/30/22 Rx " (BD Pratima 2nd Gen Pen Needle) Patient History Medical History (Updated 11/04/22 @ 15:44 by Luz Maria Stewart DO) Acute CVA (cerebrovascular accident) 05/2022,brought to [place], "symptoms but nothing found on imaging"-still has left sided weakness and stuttering when speaking "if worked up" Acute exacerbation of chronic obstructive pulmonary disease (COPD) Aneurysm, cerebral, nonruptured LV4 aneurysm treated with stent/coil 2016 Per 01/30/21 Head CTA = No change in a 4 mm saccular aneurysm of the distal right middle cerebral artery and a 2 mm basilar artery aneurysm. Anxiety Asthma well controlled per pt > no inhalers Atrial aneurysm Atrial fib/flutter, transient Follows [facility] > no cardioversions Loop recorder in place - [employer]- placed 09/05/18 Atrial tachycardia Breast cancer DX in 2009> bilat mastectomy >no chemo Recently diagnosed with metastatic right breast carcinoma 08/13/20 Carotid artery stenosis Follows with [facility]. S/p CEA years ago Per 01/30/21 neck CTA- severe stenosis at origin of left vertebral artery. Occlusion of the proximal to mid right vertebral artery with distal reconstitution. Stable 5 mm outpouching of the proximal right internal carotid artery with possible associated short segment dissection, unchanged. Moderate atherosclerotic plaque with the major vessels of the neck Central stenosis of spinal canal Chronic kidney disease, stage 3a Chronic obstructive pulmonary disease Cirrhosis hx CLL (chronic lymphocytic leukemia) hx Coronary artery calcification Based on calcified coronary arteries on CT Scan Abd/Pelvis 08/03/20 Deep vein thrombosis several yrs ago> left leg > caused from control pills Depression Diabetes mellitus type 2, uncontrolled Diabetic nephropathy Diabetic neuropathy Gastroesophageal reflux disease History of COVID-19 (~05/2021) jul or august 2021, pcr test mn, admitted w/stroke, tested while in hospital- found to be covid +=in hospital for 3 weeks for stroke and covid>resolved. History of CVA (cerebrovascular accident) Hx of sleep apnea waiting on new cpap; getting a new test 07/24/22 Hyperlipidemia Hypertension Hypothyroidism Left hemiparesis From stroke in November 2019>uses walker or wheelchair due to weakness Left ventricular outflow tract obstruction Lumbar radiculopathy Lumbar spinal stenosis Lumbar stenosis with neurogenic claudication Metastatic breast carcinoma b/l mastectomy about for initial breast cancer Nonalcoholic steatohepatitis Osteopenia Polycythemia Recurrent cancer of right breast (08/13/20) Initially diagnosed 2009- s/p bilateral mastectomy recurrence to chest wall s/p XRT 07/2020 Sensorineural hearing loss (SNHL) of both ears Stroke December 05, 2019 > [facility] > has short term memory loss as result > left side weakness TIA (transient ischemic attack) Jan 2021 TMJ syndrome "don't have it all them time, just clicks, no locking" Urinary frequency Vertebral artery stenosis Per 01/30/21 neck CTA- severe stenosis at origin of left vertebral artery. Occlusion of the proximal to mid right vertebral artery with distal reconstitution. Stable 5 mm outpouching of the proximal right internal carotid artery with possible associated short segment dissection, unchanged. Moderate atherosclerotic plaque with the major vessels of the neck Surgical History H/O varicose vein ligation and stripping left leg History of appendectomy History of brain surgery Cerebral angiogram and stent-assisted coil embolization of the It PICA aneurysm. 12/22/2015 > follows with [facility] History of breast lump/mass excision History of carotid endarterectomy Right side per records Over 6 yrs ago > [facility] History of cataract surgery Right: July 2012 Left: August 2012 History of colonoscopy History of hysterectomy Ovaries intact History of mastectomy bilateral September 2009 History of parathyroid surgery Excision of benign neoplasm History of shoulder surgery Right shoulder arthroscopic labral debridement, subacromial decompression, and acromioplasty excision distal clavicle, biceps tenotomy. 06/15/2014 History of total knee replacement left 01/11/2012 Hx of excision of mass from chest wall > right side > radiation now complete Hx of tonsillectomy Port-A-Cath in place (02/22/22) Insertion Access Port with Fluoroscopy to left internal jugular vein (Left) - Joseph Ingram DO, FACS Family History Grandmother No problems noted. Father Lung disease Lung cancer Mother Cancer Hypertension Unknown Colon cancer Son Anxiety Depression Kidney stones Alcohol abuse Grandmother (Maternal) Lung cancer Sister COPD (chronic obstructive pulmonary disease) Son MVA (motor vehicle accident) Son Rheumatic fever Daughter Medical history unknown Denies family history of Ovarian cancer Prostate cancer Myocardial infarction Breast cancer Bleeding disorder Social History Smoking Status: Former smoker Tobacco Type: Cigarettes Age Started Using Tobacco: 16; Cigarettes Per Day: 1 pack every 2-3 days; Second Hand Exposure: Yes; Do You Dip or Chew Tobacco: No; Tobacco Cessation Education Requested by Patient: No Hx Alcohol Use: No Hx Substance Use: No Preferred Language: Serbian Communication Ability: Effective Communication Ability Comment: Expressive Aphasia Visual Impairment: No Limitations Hearing Ability: Normal Computer Lab Para Professional Required: No Beliefs That Will Affect Care: None marital status: Current Living Situation: Spouse current occupational status: retired 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 [employer] How many Children do You have: 4 How many Children do You have Comment: Pregnancies:6 Children:4 :1 Other Information That Helps Us Care for You: No Feels Safe at Home: Yes Safety Concerns: Feels Safe At This Time Childhood Exposure to Second-Hand Smoke: Yes Diet: regular Diet Comment: Regular caffeine: Yes during the past year weight has: remained stable Dental Care, Regularly: No Physical Activity Frequency: 3-4 Times per Week Physical Activity Frequency Comment: walking Seatbelt Use: never Assistive Devices: Nebulizer and Walker Review of Systems Review of Systems: All systems reviewed & are unremarkable except as noted in Subjective Physical Exam Physical Exam: General-alert and oriented x3, no fevers, no chills HEENT-the patient is edentulous. Mallampati class III Neck-no lymphadenopathy or thyromegaly, trachea midline Chest-clear to auscultation percussion. No rales wheezing or rhonchi Cardiac-regular rate and rhythm, normal S1 and S2 Abdomen-normal bowel sounds, nontender, no hepatosplenomegaly Extremities-no cyanosis, clubbing, or edema Neuro-cranial nerves II through XII intact, motor and sensory function within normal limits, strength symmetrical , no focal deficits Psych-normal affect, normal mood Results & Data Results & Data Vital Signs (Past 12 Hours) Vital Signs Temp Pulse Pulse Resp BP Pulse Ox O2 Del Method 11/06/22 15:13 36.5 C 102 H 20 110/67 93 Room Air 11/06/22 12:00 36.6 C 71 22 127/70 94 Room Air 11/06/22 07:39 37.0 C 74 20 151/75 H 96 Room Air 11/06/22 07:00 72 11/06/22 07:20 66 17 97 Room Air FiO2 11/06/22 15:13 11/06/22 12:00 11/06/22 07:39 11/06/22 07:00 11/06/22 07:20 21 Diagnostic Findings Home Polysomnograph Report 07/27/22 CLINICAL DATA: The patient is an 82-year-old female with BMI of 37.5 referred for re-evaluation of sleep apnea currently untreated. RECORDING RESULTS: Total recording time was 11.9 hours. The patient's monitoring time/ estimated sleep time was 11.9 hours. RESPIRATORY DATA: Mild sleep apnea was documented with an YAAKOV of 9.2. There were 35 obstructive apneas and 74 hypopneas. The longest respiratory event was 57 seconds. OXIMETRY DATA: Nocturnal hypoxemia was seen. Oxygen russ was 75 percent. Mean saturation was 92 percent. Time below 89 percent was 148 minutes. HEART RATE DATA: Heart rates were recorded between 37 and 77 beats per minute. SNORING DATA: Snoring was recorded throughout the night. SHIFT MANAGER'S COMMENTS: There were some technical issues with the test. The patient did not appear to have the thermistor or pulse oximeter on correctly. This brings in to question the accuracy of this sleep study. IMPRESSION: Mild sleep apnea with nocturnal hypoxemia -possibly underestimated by this sleep study due to the above noted technical issues. RECOMMENDATIONS: The patient could be considered for in-lab split night study. Auto CPAP could be initiated with follow-up overnight pulse oximetry on treatment. Clinical correlation is needed. PG Care Time/CCT Total # of Minutes Spent Total Time Spent with Patient: Total time spent is greater than 50% in coordination of care (as documented) at patient's floor/unit and/or counseling patient: Coding Level of Care Code 77034 INT INP/OBS CARE MIN Diagnoses PA (obstructive sleep apnea) G47.33
[2022-11-06] MEDS: ACETAMINOPHEN 325 MG TAB PO PRN (20:13)
[2022-11-06] MEDS: DONEPEZIL HCL 10 MG TAB PO SCH (20:40)
[2022-11-06] MEDS: OXYBUTYNIN CHLORIDE XL 5 MG TABCR PO SCH (20:42)
[2022-11-06] MEDS: ROSUVASTATIN CALCIUM 10 MG TAB PO SCH (20:42)
[2022-11-06] MEDS: LORazepam 0.5 MG TAB PO PRN (20:42)
[2022-11-07] MEDS: LEVOTHYROXINE SODIUM 75 MCG TABLET PO SCH (05:36)
[2022-11-07] MEDS: FORMOTEROL 20 MCG/2 ML VIAL NEB SCH ×2 (07:19→19:02)
[2022-11-07] MEDS: BUDESONIDE 0.5 MG/2 ML VIAL (PULMICORT) NEB SCH ×2 (07:20→19:02)
[2022-11-07] MEDS: APIXABAN 5 MG TABLET PO SCH ×2 (08:07→20:30)
[2022-11-07] MEDS: guaiFENesin 600 MG TABCR PO SCH ×2 (08:07→20:31)
[2022-11-07] MEDS: SERTRALINE HCL 50 MG TABLET PO SCH (08:07)
[2022-11-07] MEDS: AZITHROMYCIN 250 MG TAB PO SCH (08:08)
[2022-11-07] MEDS: PANTOprazole 40 MG TAB PO SCH (08:08)
[2022-11-07] MEDS: ANASTROZOLE 1 MG TAB PO SCH (08:08)
[2022-11-07] MEDS: predniSONE 20 MG TAB PO SCH (08:08)
[2022-11-07] MEDS: ASPIRIN 81 MG CHEW PO SCH (08:09)
[2022-11-07] MEDS: NICOTINE 14 MG/24 HR PATCH TD SCH (08:09)
[2022-11-07] MEDS: LANTUS PER UNIT CHARGE SC SCH (08:24)
[2022-11-07] MEDS: INSULIN ASPART PER UNIT CHARGE SC SCH ×4 (08:24→20:47)
--- NOTE | 2022-11-07 08:57 | Pharmacy Report ---
Pharmacy Glycemic Short Note 2 - Date of Service November 07, 2022 - Glycemic Short BSG Results (Last 24 hours): 11/06/22 11/06/22 11/06/22 11:48 16:30 20:16 POC Glucose 126 H 145 H 164 H 11/07/22 07:38 POC Glucose 97 OUTPATIENT ANTIDIABETIC REGIMEN: * Levemir 25 units SQ daily * Novolog mix 70/30 20 units with breakfast and dinner A1c = 8% (11/05/22) ASSESSMENT: 11/07/22: * BSGs reasonably well-controlled yesterday, ranging 122-164 mg/dL * Received 55 units of insulin (30 units of basal and 25 units of prandial/correctional bolus) * Continues on prednisone 40 mg PO daily (dose 4 of 5), will need to make adjustments following last dose of prednisone tomorrow * Fasting BSG of 97 mg/dL this morning - will plan to decrease basal insulin today 11/05/22 * Sharon received 61 units of insulin yesterday (40 units Lantus + 21 units Novolog) * Fasting BSG of 113 mg/dL. Yesterday's regimen was highly basal weighted - will back off Lantus today. * Post prandial BSGs improved today following slight tightening of carb coverage. Patient remains on prednisone 40 mg daily. Background: * Sharon is a 82 yo T2DM admitted with generalized weakness and COPD ex acerbation. * Pharmacy was consulted to assist in BSG management in the setting of steroids. Ordered prednisone 40 mg PO daily. * Patient takes a total of 65 units of insulin at home. Will stress her home dose due to likelihood of steroid induced hyperglycemia. * Novolog parameters based on weight/stress 3 for now. PLAN FOR INPATIENT GLYCEMIC CONTROL: * Basal insulin * Lantus 15 units SC daily with prednisone * Lantus 0-10 units SC HS * Bolus insulin * NovoLog per scale ACHS or Q6hrs while NPO * Goal Range: Low 120 mg/dL - High 150 mg/dL * Correction Factor: 15 mg/dL/unit * Nutritional / Prandial insulin per carb ratio of 1 unit per 5 grams CHO consumed
[2022-11-07] MEDS: oxyBUTYnin chloride 5 MG TAB PO SCH ×2 (12:38→20:33)
[2022-11-07] MEDS: HEPARIN 100 UNIT/ML 5ML FLUSH FLUSH PRN (13:37)
--- NOTE | 2022-11-07 14:32 | Hospitalist Progress Note ---
Date of Service November 07, 2022 Assessment & Plan (1) Generalized weakness: Plan: Due to volume depletion from gastroenteritis. Continue OT and PT. Improved. CT Head without evidence of CVA or other acute pathology. CT Chest, abdomen, and pelvis without evidence of acute pathology. Fall precautions in place. (2) Infectious gastroenteritis: Plan: Norovirus and enterotoxigenic E. coli isolated. Supportive care. This should be self-limiting. C. difficile study negative. Improving (3) Acute exacerbation of chronic obstructive pulmonary disease (COPD): Plan: Resolved. Azithromycin will be completed today, November 07, and prednisone taper completed November 08. Continue albuterol nebs, Pulmicort Respules. Continue home nicotine patch. (4) Atrial fib/flutter, transient: Plan: Stable. Continue Eliquis. Telemetry (5) Chronic kidney disease, stage 3a: Plan: Monitor intake and output. Serial labs. Stable (6) Diabetes mellitus type 2, uncontrolled: Plan: ADA diet. Basal insulin therapy. Sliding scale coverage. A1c 8.0% (7) EMILY (iron deficiency anemia): Plan: Hgb 12.5 on admission. No evidence of bleeding (8) Hypothyroidism: Plan: Stable. Continue levothyroxine (9) PA (obstructive sleep apnea): Plan: She is having sleep difficulty. Pulmonary medicine consultation and recommendations appreciated. She will follow-up with Dr. Osuna as an outpatient for trial of different CPAP masks. (10) Recurrent cancer of right breast: Plan: Stable. No intervention necessary at this time. Neck CTA 05/2022 suspicious for bony metastatic disease seen in the manubrium of the sternum. Recent PET scan did not show any uptake consistent with malignancy. Continue home anastrazole. Outpatient follow up with Oncology (11) Urinary incontinence: Plan: Stable. Some bladder spasms noted. Oxybutynin ordered Plan Anticipate eventual discharge to IPR or SNF facility. Hopefully tomorrowNovember 08 Admission and Anticipated Discharge Date Admission Date: November 03, 2022 Subjective Complains of intermittent bladder spasms. Oxybutynin ordered. Azithromycin completed today, November 07. Prednisone will be completed tomorrow, November 08. Pulmonary consultation noted. She will follow-up as an outpatient with Dr. Ely to try a different CPAP mask. Hopeful discharge to SNF or IPR tomorrow, November 08. Review of Systems Review of Systems: Constitutional-no fever or chills ENT-no blurred vision, no double vision, no epistaxis, no sore throat Respiratory-no cough, no wheezing, no shortness of breath Cardiac-no palpitations, no chest pain, no syncope GI-no nausea, vomiting, diarrhea, melena, hematochezia -no urinary retention, no urinary incontinence, no dysuria, no hematuria Musculoskeletal-no joint pain, no muscle tenderness Skin-no bruising, no rashes, no pruritus Neuro-no isolated weakness, no paresthesia, no weakness Psych-no depression, no anxiety Physical Exam Physical Exam: General-alert and oriented x3, no fevers, no chills HEENT-head atraumatic and normocephalic, pupils equal and reactive to light, extraocular muscles intact Neck-no lymphadenopathy or thyromegaly, trachea midline Chest-clear to auscultation percussion. No rales wheezing or rhonchi Cardiac-regular rate and rhythm, normal S1 and S2 Abdomen-normal bowel sounds, nontender, no hepatosplenomegaly Extremities-no cyanosis, clubbing, or edema Neuro-cranial nerves II through XII intact, motor and sensory function within normal limits, strength symmetrical , no focal deficits Psych-normal affect, normal mood Results & Data Results & Data Vital Signs (Past 12 Hours) Vital Signs Temp Pulse Pulse Resp BP Pulse Ox O2 Del Method 11/07/22 11:22 36.9 C 65 18 144/69 H 96 Room Air 11/07/22 09:06 Room Air 11/07/22 07:46 37.1 C 69 20 149/74 H 94 Room Air 11/07/22 07:33 67 11/07/22 07:21 68 18 96 Room Air 11/07/22 03:18 36.5 C 74 18 172/84 H 96 Room Air 11/07/22 02:36 76 Laboratory Results 11/06/22 06:33 11/06/22 06:33 PG Care Time/CCT Total # of Minutes Spent Total Time Spent with Patient: Total time spent is greater than 50% in coordination of care (as documented) at patient's floor/unit and/or counseling patient: Coding Level of Care Code 13578 SUB INP/OBS CARE 3/50MIN Diagnoses Generalized weakness R53.1 Infectious gastroenteritis A09 Acute exacerbation of chronic obstructive pulmonary disease (COPD) J44.1 Atrial fib/flutter, transient Chronic kidney disease, stage 3a N18.31 Diabetes mellitus type 2, uncontrolled E11.65 Coma presence: without coma EMILY (iron deficiency anemia) D50.9 Hypothyroidism E03.9 Hypothyroidism type: unspecified PA (obstructive sleep apnea) G47.33 Recurrent cancer of right breast C50.911 Urinary incontinence R32 (6) Diabetes mellitus type 2, uncontrolled Coma presence: without coma (8) Hypothyroidism Hypothyroidism type: unspecified Qualified Code(s): E03.9 - Hypothyroidism, unspecified
[2022-11-07] MEDS: OXYBUTYNIN CHLORIDE XL 5 MG TABCR PO SCH (20:29)
[2022-11-07] MEDS: DONEPEZIL HCL 10 MG TAB PO SCH (20:32)
[2022-11-07] MEDS: ROSUVASTATIN CALCIUM 10 MG TAB PO SCH (20:34)
[2022-11-07] MEDS: LORazepam 0.5 MG TAB PO PRN (20:47)
[2022-11-07] MEDS: ACETAMINOPHEN 325 MG TAB PO PRN (20:47)
[2022-11-07] MEDS ORDERED: LANTUS PER UNIT CHARGE SC SCH (21:00)
[2022-11-08] MEDS: LEVOTHYROXINE SODIUM 75 MCG TABLET PO SCH (05:44)
[2022-11-08] MEDS: FORMOTEROL 20 MCG/2 ML VIAL NEB SCH (07:04)
[2022-11-08 07:05] VITALS: O2SAT 97
[2022-11-08] MEDS: BUDESONIDE 0.5 MG/2 ML VIAL (PULMICORT) NEB SCH (07:05)
[2022-11-08 07:19] VITALS: TEMP 98.6
[2022-11-08] MEDS: guaiFENesin 600 MG TABCR PO SCH (08:40)
[2022-11-08] MEDS: PANTOprazole 40 MG TAB PO SCH (08:41)
[2022-11-08] MEDS: APIXABAN 5 MG TABLET PO SCH (08:42)
[2022-11-08] MEDS: ASPIRIN 81 MG CHEW PO SCH (08:42)
[2022-11-08] MEDS: ANASTROZOLE 1 MG TAB PO SCH (08:42)
[2022-11-08] MEDS: SERTRALINE HCL 50 MG TABLET PO SCH (08:43)
[2022-11-08] MEDS: predniSONE 20 MG TAB PO SCH (08:43)
[2022-11-08] MEDS: oxyBUTYnin chloride 5 MG TAB PO SCH ×2 (08:43→13:27)
[2022-11-08] MEDS: NICOTINE 14 MG/24 HR PATCH TD SCH (08:44)
[2022-11-08] MEDS: INSULIN ASPART PER UNIT CHARGE SC SCH ×2 (08:53→12:03)
[2022-11-08] MEDS: LANTUS PER UNIT CHARGE SC SCH (08:53)
[2022-11-08] MEDS ORDERED: ALENDRONATE SODIUM 70 MG TAB PO ONE (09:48)
[2022-11-08 11:40] VITALS: BP 153/78; PULSE 66
--- NOTE | 2022-11-08 13:44 | Discharge Summary ---
Date of Service November 08, 2022 Admission HPI Per Admitting Provider Sharon is an 82 year old female w/ PmHx COPD, urinary incontinence, pseudobulbar affect, depression/anxiety, HLD, transient atrial fibrillation, recurrent cancer of R breast on anastrazole, iron deficiency anemia, T2DM coming in to the ED for weakness x1 day. Patient states that since yesterday she has been having generalized weakness. She had multiple episodes of non-bloody, non- bilious emesis yesterday along with a short bout of diarrhea. She states she did not eat any abnormal foods, uncooked foods, seafood. She had made chili with beef that was fully cooked. She states her also ate this but did not have the symptoms she was having. She had felt somewhat feverish and some chills throughout the day too. She had been outside the past week and says that she had walked back and forth to her mailbox and inhaled the smoke. She also is in the process of obtaining a CPAP device at home. In the ED she was hypoxic to 88% and required oxygen. Her CBC, CMP were unremarkable. Procal was mildly elevated at 0.65. U/A unremarkable. Lyme and covid negative. CXR showed cardiomegaly chronic parenchymal changes, no acute abnormality. CT A&P unremarkable. Principal Diagnosis Norovirus enteritis, enterotoxigenic E. coli enteritis, weakness, hypokalemia, exacerbation COPD Discharge Exam General-alert and oriented x3, no fevers, no chills HEENT-head atraumatic and normocephalic, pupils equal and reactive to light, extraocular muscles intact Neck-no lymphadenopathy or thyromegaly, trachea midline Chest-clear to auscultation percussion. No rales wheezing or rhonchi Cardiac-regular rate and rhythm, normal S1 and S2 Abdomen-normal bowel sounds, nontender, no hepatosplenomegaly Extremities-no cyanosis, clubbing, or edema Neuro-cranial nerves II through XII intact, motor and sensory function within normal limits, strength symmetrical , no focal deficits Psych-normal affect, normal mood Discharge Data Allergies Allergy/AdvReac Type Severity Reaction Status Date / Time adhesive Allergy Intermediate BLISTERS Verified 10/16/22 10:14 amitriptyline AdvReac Intermediate HALLUCINATI Verified 10/16/22 10:14 ONS atorvastatin AdvReac Intermediate JOINT PAIN Verified 10/16/22 10:14 cephalexin AdvReac Intermediate N/V Verified 10/16/22 10:14 codeine AdvReac Intermediate NAUSEA AND Verified 10/16/22 10:14 VOMITING doxycycline AdvReac Intermediate GI SYMPTOMS Verified 10/16/22 10:14 hydroxychloroquine AdvReac Intermediate Diarrhea Verified 10/16/22 10:14 [From Plaquenil] liraglutide AdvReac Intermediate GI UPSET Verified 10/16/22 10:14 phenol AdvReac Intermediate GI UPSET Verified 10/16/22 10:14 pioglitazone AdvReac Intermediate SEVERE Verified 10/16/22 10:14 FATIGUE tramadol AdvReac Intermediate N/V Verified 10/16/22 10:14 zoster vaccine live AdvReac Unknown Unknown Verified 10/16/22 10:14 [From Zostavax (PF)] Consultations 11/03/22 21:45 ED Decision to Admit Stat 11/06/22 15:37 Consult Pulmonology Routine Ordered Studies 11/03/22 19:27 CT abd pelvis IV con only Stat 11/04/22 10:41 CT chest diagnostic wo con Routine CT head/brain wo con Routine Hospital Course (1) Generalized weakness: Due to volume depletion from gastroenteritis. Continue OT and PT. Improved. CT Head without evidence of CVA or other acute pathology. CT Chest, abdomen, and pelvis without evidence of acute pathology. Fall precautions while hospitalized (2) Infectious gastroenteritis: Norovirus and enterotoxigenic E. coli isolated. Supportive care. This should be self-limiting. C. difficile study negative. Improving (3) Acute exacerbation of chronic obstructive pulmonary disease (COPD): Resolved. Azithromycin completed November 07, and prednisone completed today, November 08. Continue albuterol nebs, Pulmicort Respules. Continue home nicotine patch. (4) Atrial fib/flutter, transient: Stable. Continue Eliquis. Telemetry while hospitalized (5) Chronic kidney disease, stage 3a: Monitor intake and output. Serial labs. Stable (6) Diabetes mellitus type 2, uncontrolled: ADA diet. Basal insulin therapy. Sliding scale coverage. A1c 8.0% (7) EMILY (iron deficiency anemia): Hgb 12.5 on admission. No evidence of bleeding (8) Hypothyroidism: Stable. Continue levothyroxine (9) PA (obstructive sleep apnea): She is having sleep difficulty. Pulmonary medicine consultation and recommendations appreciated. She will follow-up with Dr. Osuna as an outpatient for trial of different CPAP masks. (10) Recurrent cancer of right breast: Stable. No intervention necessary at this time. Neck CTA 05/2022 suspicious for bony metastatic disease seen in the manubrium of the sternum. Recent PET scan did not show any uptake consistent with malignancy. Continue home anastrazole. Outpatient follow up with Oncology (11) Urinary incontinence: Stable. Some bladder spasms noted. Treated with oxybutynin Plan Home with home health services today, November 08 Total Time Total Time Spent Total Time Spent (In Minutes): 40 minutes Discharge Plan Discharge Items Patient Disposition: Home - Home Health Services Reason For Visit: COPD, HYPOXIA, WEAKNESS Discharge Diagnosis: Norovirus enteritis, enterotoxic E. coli enteritis, hypokalemia, weakness, exacerbation COPD Activity: Resume your previous activity Non-emergency contact: Primary Care Provider Call non-emergency contact if: you have any medication questions and your symptoms worsen Follow-up/Referrals: Jennifer Ribera DO [Primary Care Provider] - 11/21/22 9:20 am Diet: Carb Consistent or DM2 and Heart Healthy Addtl Attending Provider Instructions: Continue with outpatient physical therapy Pending Studies at Discharge: No Stand-Alone Forms: My [facility] [place], Smoking Cessation Medications and DC Order Prescriptions: Continued Eliquis 5 mg tablet 5 mg PO BID (DME) Wheelchair (Powered) Device See Rx Instructions .Route Qty: 1 0RF Rx Instructions: "power mobility" (DME) Power Wheelchair Device See Rx Instructions .Route Qty: 1 0RF Rx Instructions: Evaluation for therapy power mobility (DME) OneTouch Ultra Test Strip See Rx Instructions .Route Qty: 300 1RF Rx Instructions: Test blood sugars TID (DME) diaper,brief,adult,disposable Misc See Rx Instructions .Route Qty: 60 5RF Rx Instructions: change when soiled - using 2 daily (DME) Underpads Regular Pad See Rx Instructions .Route Qty: 60 5RF Rx Instructions: change when soiled - using 2 daily (DME) Wheeled Walker Misc See Rx Instructions .Route Qty: 1 0RF Rx Instructions: As directed metformin 500 mg tablet extended release 24 hr 500 mg PO HS Qty: 90 1RF omeprazole 40 mg capsule,delayed release(DR/EC) 40 mg PO QAM Qty: 90 1RF (DME) pen needle, diabetic [BD Pratima 2nd Gen Pen Needle] 32 gauge x 5/32" needle See Rx Instructions .Route Qty: 100 3RF Rx Instructions: Use with insulin pen for injection alendronate 70 mg tablet 70 mg PO Q7D Rx Instructions: wednesdays lorazepam 0.5 mg tablet 0.5 mg PO TID PRN (Reason: Anxiety or muscle spasm) Qty: 30 0RF gabapentin 300 mg capsule 300 - 600 mg PO UD Rx Instructions: 300 mg orally; TAKES 300mg in am, 600mg HS insulin asp prt-insulin aspart [Novolog Mix 70-30FlexPen U-100] 100 unit/mL (70-30) insulin pen 20 unit SUBCUT BID Levemir FlexTouch U100 Insulin 100 unit/mL (3 mL) insulin pen 25 unit SUBCUT QAM Qty: 30 3RF nystatin 100,000 unit/mL suspension 5 ml PO QID Qty: 200 1RF Rx Instructions: swish and swallow nicotine 14 mg/24 hr patch 24 hour 1 patch transdermal DAILY Qty: 28 0RF rosuvastatin [Crestor] 20 mg tablet 10 mg PO HS sertraline [Zoloft] 50 mg tablet 75 mg PO DAILY aspirin 81 mg tablet,chewable 81 mg PO QAM PreserVision Lutein 226 mg-200 unit -5 mg-0.8 mg Capsule 1 cap PO QAM anastrozole 1 mg tablet 1 mg PO QAM donepezil 5 mg tablet 10 mg PO HS levothyroxine 75 mcg tablet 75 mcg PO QAM oxybutynin chloride 15 mg tablet extended release 24hr 15 mg PO HS Discharge Orders: Discharge Order (Routine); Ordered 11/08/22 Ordered By: Jorge Alberto Hale/Other Patient Handouts: A1C Admission Data Admit Date/Time: 11/03/22 22:00 Attending Provider: Jorge Alberto Mahan Admit Provider: Amado Cooper Primary Care Provider: Jennifer Ribera Other Providers: Angel Davalos ; [facility] ; [facility] ; Donnie Mai Coding Level of Care Code 26451 INP/OBS DISCH >30 MIN Diagnoses Generalized weakness R53.1 Infectious gastroenteritis A09 Acute exacerbation of chronic obstructive pulmonary disease (COPD) J44.1 Atrial fib/flutter, transient Chronic kidney disease, stage 3a N18.31 Diabetes mellitus type 2, uncontrolled E11.65 Coma presence: without coma EMILY (iron deficiency anemia) D50.9 Hypothyroidism E03.9 Hypothyroidism type: unspecified PA (obstructive sleep apnea) G47.33 Recurrent cancer of right breast C50.911 Urinary incontinence R32
--- NOTE | 2022-11-08 14:20 | Discharge Summary ---
Date of Service November 08, 2022 Admission HPI Per Admitting Provider Sharon is an 82 year old female w/ PmHx COPD, urinary incontinence, pseudobulbar affect, depression/anxiety, HLD, transient atrial fibrillation, recurrent cancer of R breast on anastrazole, iron deficiency anemia, T2DM coming in to the ED for weakness x1 day. Patient states that since yesterday she has been having generalized weakness. She had multiple episodes of non-bloody, non- bilious emesis yesterday along with a short bout of diarrhea. She states she did not eat any abnormal foods, uncooked foods, seafood. She had made chili with beef that was fully cooked. She states her also ate this but did not have the symptoms she was having. She had felt somewhat feverish and some chills throughout the day too. She had been outside the past week and says that she had walked back and forth to her mailbox and inhaled the smoke. She also is in the process of obtaining a CPAP device at home. In the ED she was hypoxic to 88% and required oxygen. Her CBC, CMP were unremarkable. Procal was mildly elevated at 0.65. U/A unremarkable. Lyme and covid negative. CXR showed cardiomegaly chronic parenchymal changes, no acute abnormality. CT A&P unremarkable. Principal Diagnosis Norovirus enteritis, enterotoxigenic E. coli enteritis, hypokalemia, weakness, exacerbation COPD Discharge Data Allergies Allergy/AdvReac Type Severity Reaction Status Date / Time adhesive Allergy Intermediate BLISTERS Verified 10/16/22 10:14 amitriptyline AdvReac Intermediate HALLUCINATI Verified 10/16/22 10:14 ONS atorvastatin AdvReac Intermediate JOINT PAIN Verified 10/16/22 10:14 cephalexin AdvReac Intermediate N/V Verified 10/16/22 10:14 codeine AdvReac Intermediate NAUSEA AND Verified 10/16/22 10:14 VOMITING doxycycline AdvReac Intermediate GI SYMPTOMS Verified 10/16/22 10:14 hydroxychloroquine AdvReac Intermediate Diarrhea Verified 10/16/22 10:14 [From Plaquenil] liraglutide AdvReac Intermediate GI UPSET Verified 10/16/22 10:14 phenol AdvReac Intermediate GI UPSET Verified 10/16/22 10:14 pioglitazone AdvReac Intermediate SEVERE Verified 10/16/22 10:14 FATIGUE tramadol AdvReac Intermediate N/V Verified 10/16/22 10:14 zoster vaccine live AdvReac Unknown Unknown Verified 10/16/22 10:14 [From Zostavax (PF)] Consultations 11/03/22 21:45 ED Decision to Admit Stat 11/06/22 15:37 Consult Pulmonology Routine Ordered Studies 11/03/22 19:27 CT abd pelvis IV con only Stat 11/04/22 10:41 CT chest diagnostic wo con Routine CT head/brain wo con Routine Total Time Total Time Spent Total Time Spent (In Minutes): 45 minutes Discharge Plan Discharge Items Patient Disposition: Home - Home Health Services Reason For Visit: COPD, HYPOXIA, WEAKNESS Discharge Diagnosis: Norovirus enteritis, enterotoxic E. coli enteritis, hypokalemia, weakness, exacerbation COPD Activity: Resume your previous activity Non-emergency contact: Primary Care Provider Call non-emergency contact if: you have any medication questions and your symptoms worsen Follow-up/Referrals: Jennifer Ribera DO [Primary Care Provider] - 11/21/22 9:20 am Diet: Carb Consistent or DM2 and Heart Healthy Addtl Attending Provider Instructions: Continue with outpatient physical therapy Pending Studies at Discharge: No Stand-Alone Forms: My [employer], Smoking Cessation Medications and DC Order Prescriptions: New oxybutynin chloride 5 mg Tablet 5 mg PO TID Qty: 60 0RF Continued Eliquis 5 mg tablet 5 mg PO BID (DME) Wheelchair (Powered) Device See Rx Instructions .Route Qty: 1 0RF Rx Instructions: "power mobility" (DME) Power Wheelchair Device See Rx Instructions .Route Qty: 1 0RF Rx Instructions: Evaluation for therapy power mobility (DME) OneTouch Ultra Test Strip See Rx Instructions .Route Qty: 300 1RF Rx Instructions: Test blood sugars TID (DME) diaper,brief,adult,disposable Misc See Rx Instructions .Route Qty: 60 5RF Rx Instructions: change when soiled - using 2 daily (DME) Underpads Regular Pad See Rx Instructions .Route Qty: 60 5RF Rx Instructions: change when soiled - using 2 daily (DME) Wheeled Walker Misc See Rx Instructions .Route Qty: 1 0RF Rx Instructions: As directed metformin 500 mg tablet extended release 24 hr 500 mg PO HS Qty: 90 1RF omeprazole 40 mg capsule,delayed release(DR/EC) 40 mg PO QAM Qty: 90 1RF (DME) pen needle, diabetic [BD Pratima 2nd Gen Pen Needle] 32 gauge x 5/32" needle See Rx Instructions .Route Qty: 100 3RF Rx Instructions: Use with insulin pen for injection alendronate 70 mg tablet 70 mg PO Q7D Rx Instructions: wednesdays lorazepam 0.5 mg tablet 0.5 mg PO TID PRN (Reason: Anxiety or muscle spasm) Qty: 30 0RF gabapentin 300 mg capsule 300 - 600 mg PO UD Rx Instructions: 300 mg orally; TAKES 300mg in am, 600mg HS insulin asp prt-insulin aspart [Novolog Mix 70-30FlexPen U-100] 100 unit/mL (70-30) insulin pen 20 unit SUBCUT BID Levemir FlexTouch U100 Insulin 100 unit/mL (3 mL) insulin pen 25 unit SUBCUT QAM Qty: 30 3RF nystatin 100,000 unit/mL suspension 5 ml PO QID Qty: 200 1RF Rx Instructions: swish and swallow nicotine 14 mg/24 hr patch 24 hour 1 patch transdermal DAILY Qty: 28 0RF rosuvastatin [Crestor] 20 mg tablet 10 mg PO HS sertraline [Zoloft] 50 mg tablet 75 mg PO DAILY aspirin 81 mg tablet,chewable 81 mg PO QAM PreserVision Lutein 226 mg-200 unit -5 mg-0.8 mg Capsule 1 cap PO QAM anastrozole 1 mg tablet 1 mg PO QAM donepezil 5 mg tablet 10 mg PO HS levothyroxine 75 mcg tablet 75 mcg PO QAM Discontinued oxybutynin chloride 15 mg tablet extended release 24hr 15 mg PO HS Discharge Orders: Discharge Order (Routine); Ordered 11/08/22 Ordered By: Jorge Alberto Hale/Other Patient Handouts: A1C Admission Data Admit Date/Time: 11/03/22 22:00 Attending Provider: Jorge Alberto Mahan Admit Provider: Amado Cooper Primary Care Provider: Jennifer Ribera Other Providers: Angel Davalos ; [facility] ; [facility] ; R Donnie norris Other Interventions: Discharge Summary Assessment (RN) Last Done: 11/08/22 14:24 Coding Level of Care Code 65002 INP/OBS DISCH >30 MIN Diagnoses
== END 2022-11-08 15:15 | disposition home or self-care (01) | DRG 371 ==
LOC: ED 16:20 → 2W 22:00 → SUATTDRO 22:00 → 2W 23:07

== ENCOUNTER 2023-03-06 17:36 | Inpatient (IN) ==
[2023-03-06] MEDS ORDERED: ACETAMINOPHEN 1,000 MG/100 ML VIAL IV STA (18:12)
[2023-03-06] MEDS ORDERED: MAGNESIUM SULFATE / D5W 1 GM/100 ML BAG IV STA ×2 (18:16→19:43)
--- NOTE | 2023-03-06 18:16 | Emergency Department Note ---
Impression & Plan Chest pain, Hypokalemia, Hypomagnesemia, Elevated troponin ED Provider Note ED Provider Note NAME: TENZIN PRICE AGE:82 SEX: Female : 1940 ARRIVES VIA: INFORMANT: Patient ED PROVIDER(s): Darcy Bland DO CHIEF COMPLAINT: Chest pain HPI: This is an 82-year-old female who presents emergency room due to concern for chest pain. Patient states symptoms began yesterday and have been intermittent. She states very severe squeezing and to radiate into her back as well as mildly in her neck. She denies any radiation in the upper extremities. She states she does feel short of breath, dizzy, nauseated with this. Patient states she began noting diarrhea last week and was seen and evaluated in the ER at that time. She states the diarrhea has persisted and she is not on any blood. She states she does take Lomotil intermittently with some improvement. Patient with a history of breast cancer as well as CLL and does follow with Dr. Aaron for oncology. Patient denies any history of heart problems. She denies any fevers, or URI symptoms. She states she does intermittently have chills but attributes that to her anemia. PAST MEDICAL HISTORY:See Below PAST SURGICAL HISTORY:See Below FAMILY HISTORY:See Below SOCIAL HISTORY:See Below HOME MEDICATIONS:See Below ALLERGIES:See Below VITALS:See Below PHYSICAL EXAMINATION: GENERAL: alert, well appearing, well nourished, no distress, non-toxic EYE EXAM: normal conjunctiva, PERRL and EOM's grossly intact OROPHARYNX: no exudate, no erythema, lips, buccal mucosa, and tongue normal and mucous membranes are moist NECK: supple, no nuchal rigidity, no adenopathy, non-tender LUNGS: Clear to auscultation. Normal chest wall mechanics, no w/r/r HEART: no murmurs, S1 normal and S2 normal CHEST WALL: Well-healed incisions from bilateral mastectomy, no reproducible pain with palpation of the chest wall, port noted and accessed by nursing staff left anterior superior chest wall ABDOMEN: abdomen soft, non-tender, normo-active bowel sounds, no masses, no rebound or guarding. BACK: Back is symmetrical on inspection and there is no deformity, no midline tenderness, no CVA tenderness. SKIN: no rashes, petechiae, orbruising UPPER EXTREMITIES: upper extremities are grossly normal. FROM, nml pulses b/l. LOWER EXTREMITIES: No pitting edema. FROM, nml pulses b/l. NEURO EXAM: Normal sensorium, cranial nerves II-XII grossly intact, normal speech, no facial droop,nogross weakness of arms, no gross weakness of legs. Gross sensation intact. No ataxia. Vital Signs: reviewed and remarkable Differential Diagnosis: acute coronary syndrome, pericarditis, pulmonary embolus, aortic dissection, pneumonia, pneumothorax, musculoskeletal pain, GERD, perf, GI bleed, as well as others were considered MEDICAL DECISION MAKING: This is an 82-year-old female presents emergency room due to concern for intermittent chest pain. Patient with complicated past medical history including malignancy, diabetes, and prior CVA. Labs drawn and sent, IV established, EKG performed at bedside interpreted by me which revealed prolonged QTc, patient monitored on telemetry. Due to the prolonged QTc patient given IV fluids as well as IV magnesium. Patient also has had recent diarrhea and I was suspicious of electrolyte abnormalities. Patient sent for CT angiography of the chest due to her description of chest pain radiating into her back as well as other past medical history. Patient is already anticoagulated. Patient ultimately found to have significant electrolyte abnormalities. She was given IV magnesium and oral potassium in addition to her IV fluids. Due to concern for ongoing pain as well as significant electrolyte abnormalities and complicated past medical history, [facility] and [facility]. Consultation(s): 2112: [facility] Daval[facility] ER Treatment Provided: See below Diagnostics Interpreted By Me: -ECG: Normal sinus at 81, normal axis, normal QRS, prolonged QTc, nonspecific ST/T wave changes -Cardiac Monitoring: An order was placed for continuous cardiac monitoring. The monitor shows a rate of 72 with normal sinus rhythm. -Laboratory studies: As stated above and show below. -Imaging studies: [] Triage Nursing Note Reviewed Prior/Outside Records Reviewed - prior cards visit reviewed Critical care: Critical care of 42 min performed to assess and manage high likelihood of life- threatening chest pain and electrolyte abnormalities, involving labs and imaging performed with assessment to evaluate chest pain diagnosis with frequent reassessment. This time includes bedside time, treatment discussions with patient/family/consultants, documentation time and excludes procedure time. Past Med/Surg History Medical History (Updated 03/08/23 @ 02:08 by Darcy Bland DO) Acute CVA (cerebrovascular accident) 05/2022,brought to [place], "symptoms but nothing found on imaging"-still has left sided weakness and stuttering when speaking "if worked up" Acute exacerbation of chronic obstructive pulmonary disease (COPD) Aneurysm, cerebral, nonruptured LV4 aneurysm treated with stent/coil 2016 Per 01/30/21 Head CTA = No change in a 4 mm saccular aneurysm of the distal right middle cerebral artery and a 2 mm basilar artery aneurysm. Anxiety Asthma well controlled per pt > no inhalers Atrial aneurysm Atrial fib/flutter, transient Follows [facility] > no cardioversions Loop recorder in place - [employer]- placed 09/05/18 Atrial tachycardia Breast cancer DX in 2009> bilat mastectomy >no chemo Recently diagnosed with metastatic right breast carcinoma 08/13/20 Carotid artery stenosis Follows with [facility]. S/p CEA years ago Per 01/30/21 neck CTA- severe stenosis at origin of left vertebral artery. Occlusion of the proximal to mid right vertebral artery with distal reconstitution. Stable 5 mm outpouching of the proximal right internal carotid artery with possible associated short segment dissection, unchanged. Moderate atherosclerotic plaque with the major vessels of the neck Central stenosis of spinal canal Chronic kidney disease, stage 3a Chronic obstructive pulmonary disease Cirrhosis hx CKD (chronic kidney disease) CLL (chronic lymphocytic leukemia) hx Coronary artery calcification Based on calcified coronary arteries on CT Scan Abd/Pelvis 08/03/20 Deep vein thrombosis several yrs ago> left leg > caused from control pills Depression Diabetes mellitus type 2, uncontrolled Diabetic nephropathy Diabetic neuropathy Gastroesophageal reflux disease History of COVID-19 (~05/2021) jul or august 2021, pcr test [place], admitted w/stroke, tested while in hospital-found to be covid +=in hospital for 3 weeks for stroke and covid>resolved. History of CVA (cerebrovascular accident) Hx of sleep apnea waiting on new cpap; getting a new test 07/24/22 Hypertension Hypothyroidism EMILY (iron deficiency anemia) Left hemiparesis From stroke in November 2019>uses walker or wheelchair due to weakness Left ventricular outflow tract obstruction Lumbar radiculopathy Lumbar spinal stenosis Lumbar stenosis with neurogenic claudication Metastatic breast carcinoma b/l mastectomy about for initial breast cancer Nonalcoholic steatohepatitis PA (obstructive sleep apnea) Osteopenia Polycythemia Pseudobulbar affect Recurrent cancer of right breast (08/13/20) Initially diagnosed 2009- s/p bilateral mastectomy recurrence to chest wall s/p XRT 07/2020 Sensorineural hearing loss (SNHL) of both ears Stroke December 05, 2019 > [facility] > has short term memory loss as result > left side weakness TIA (transient ischemic attack) Jan 2021 TMJ syndrome "don't have it all them time, just clicks, no locking" Urinary frequency Urinary incontinence Vertebral artery stenosis Per 01/30/21 neck CTA- severe stenosis at origin of left vertebral artery. Occlusion of the proximal to mid right vertebral artery with distal reconstitution. Stable 5 mm outpouching of the proximal right internal carotid artery with possible associated short segment dissection, unchanged. Moderate atherosclerotic plaque with the major vessels of the neck Surgical History H/O varicose vein ligation and stripping left leg History of appendectomy History of brain surgery Cerebral angiogram and stent-assisted coil embolization of the It PICA aneurysm. 12/22/2015 [facility] History of breast lump/mass excision History of carotid endarterectomy Right side per records Over 6 yrs ago > [facility] History of cataract surgery Right: July 2012 Left: August 2012 History of colonoscopy History of hysterectomy Ovaries intact History of mastectomy bilateral September 2009 History of parathyroid surgery Excision of benign neoplasm History of shoulder surgery Right shoulder arthroscopic labral debridement, subacromial decompression, and acromioplasty excision distal clavicle, biceps tenotomy. 06/15/2014 History of total knee replacement left 01/11/2012 Hx of excision of mass from chest wall > right side > radiation now complete Hx of tonsillectomy Port-A-Cath in place (02/22/22) Insertion Access Port with Fluoroscopy to left internal jugular vein (Left) - Joseph Ingram, DO, FACS Family History Grandmother No problems noted. Father Lung disease Lung cancer Mother Cancer Hypertension Unknown Colon cancer Son Anxiety Depression Kidney stones Alcohol abuse Grandmother (Maternal) Lung cancer Sister COPD (chronic obstructive pulmonary disease) Son MVA (motor vehicle accident) Son Rheumatic fever Daughter Medical history unknown Denies family history of Ovarian cancer Prostate cancer Myocardial infarction Breast cancer Bleeding disorder Social History Smoking Status: Current some day smoker Tobacco Type: Cigarettes Age Started Using Tobacco: 16; Cigarettes Per Day: 1 pack every 2-3 days; Second Hand Exposure: Yes; Do You Dip or Chew Tobacco: No; Hx Alcohol Use: No Hx Substance Use: No Preferred Language: Kiswahili Communication Ability: Effective Communication Ability Comment: Expressive Aphasia Visual Impairment: No Limitations Hearing Ability: Normal Rib Builder Required: No Beliefs That Will Affect Care: None marital status: Current Living Situation: Spouse current occupational status: retired 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 [employer] How many Children do You have: 4 How many Children do You have Comment: Pregnancies:6 Children:4 :1 Feels Safe at Home: Yes Childhood Exposure to Second-Hand Smoke: Yes Diet: regular Diet Comment: Regular caffeine: Yes during the past year weight has: remained stable Dental Care, Regularly: No Physical Activity Frequency: 3-4 Times per Week Physical Activity Frequency Comment: walking Seatbelt Use: never Assistive Devices: CPAP and Walker Allergies Allergies Allergy/AdvReac Type Severity Reaction Status Date / Time adhesive Allergy Intermediate BLISTERS Verified 11/21/22 09:31 amitriptyline AdvReac Intermediate HALLUCINATI Verified 11/21/22 09:31 ONS atorvastatin AdvReac Intermediate JOINT PAIN Verified 11/21/22 09:31 cephalexin AdvReac Intermediate N/V Verified 11/21/22 09:31 codeine AdvReac Intermediate NAUSEA AND Verified 11/21/22 09:31 VOMITING doxycycline AdvReac Intermediate GI SYMPTOMS Verified 11/21/22 09:31 hydroxychloroquine AdvReac Intermediate Diarrhea Verified 11/21/22 09:31 [From Plaquenil] liraglutide AdvReac Intermediate GI UPSET Verified 11/21/22 09:31 phenol AdvReac Intermediate GI UPSET Verified 11/21/22 09:31 pioglitazone AdvReac Intermediate SEVERE Verified 11/21/22 09:31 FATIGUE tramadol AdvReac Intermediate N/V Verified 11/21/22 09:31 zoster vaccine live AdvReac Unknown Unknown Verified 11/21/22 09:31 [From Zostavax (PF)] Home Meds Home Medications Medication Instructions Recorded Confirmed vit C 226 mg-vit E 90 mg-copper 1 cap PO QAM 09/04/18 03/06/23 0.8 mg-zinc oxide-lutein 5 mg capsule (PreserVision Lutein) aspirin 81 mg chewable tablet 81 mg PO QAM 01/21/19 03/06/23 anastrozole 1 mg tablet 1 mg PO QAM 01/19/21 03/06/23 apixaban 5 mg tablet (Eliquis) 5 mg PO BID 05/05/21 03/06/23 alendronate 70 mg tablet 70 mg PO Q7D 08/26/21 03/06/23 levothyroxine 75 mcg tablet 75 mcg PO QAM 06/14/22 03/06/23 insulin aspar prot-insulin aspart 22 unit subcut BID 08/25/22 03/06/23 100 unit/mL (70-30) subcutaneous pen (Novolog Mix 70-30FlexPen U-100) lorazepam 0.5 mg tablet (Ativan) 0.5 mg PO TID PRN Anxiety 02/22/23 03/06/23 donepezil 10 mg tablet 10 mg PO HS 03/06/23 03/06/23 metformin 500 mg tablet,extended 500 mg PO HS 03/06/23 03/06/23 release 24 hr oxybutynin chloride 5 mg tablet 5 mg PO QAM 03/06/23 03/06/23 sertraline 100 mg tablet 100 mg PO HS 03/06/23 03/06/23 Previous Rx's Medication Instructions Recorded Wheelchair (Powered) #1 ea 08/04/21 Wheelchair (Powered) (Power #1 ea 09/08/21 Wheelchair) blood sugar diagnostic (OneTouch #300 ea 12/21/21 Ultra Test strips) diaper,brief,adult,disposable #60 ea 05/24/22 incontinence pad, liner, disp #60 ea 05/24/22 (Underpads Regular) Wheeled Walker #1 ea 06/08/22 insulin detemir U-100 100 unit/mL 25 unit (0.25 mL) subcut QAM #30 mL 08/25/22 (3 mL) subcutaneous pen (Levemir FlexTouch U-100 Insulin) pen needle, diabetic 32 gauge x #100 ea 10/30/22" (BD Pratima 2nd Gen Pen Needle) rosuvastatin 10 mg tablet 10 mg PO HS #90 tabs 12/28/22 omeprazole 40 mg capsule,delayed 40 mg PO QAM #90 caps 02/19/23 release hydrocodone 5 mg-acetaminophen 325 0.5 tab PO Q6H PRN pain #10 tabs 02/22/23 mg tablet Results & Data (ED) Vital Signs Vital Signs - 24 hr 03/06/23 18:07 03/06/23 18:07 03/06/23 18:18 Temperature 36.8 C Temperature Source Axillary Pulse Rate 81 82 Pulse Rate [Apical] Respiratory Rate 16 16 Blood Pressure 190/119 H Blood Pressure [Left Arm] Blood Pressure Mean 142 Blood Pressure Mean [Left Arm] Pulse Oximetry 96 97 96 Oxygen Delivery Method Room Air Nasal Cannula Oxygen Flow Rate Sepsis Recent Fever Within 48 Hours No Sepsis New/Unexplained Change in Mental Status No Sepsis Action Taken by Nursing No Action Required 03/06/23 18:18 03/06/23 18:22 03/06/23 19:33 Temperature Temperature Source Pulse Rate 81 Pulse Rate [Apical] 77 Respiratory Rate 16 18 Blood Pressure Blood Pressure [Left Arm] 154/88 H Blood Pressure Mean Blood Pressure Mean [Left Arm] 110 Pulse Oximetry 96 93 Oxygen Delivery Method Nasal Cannula Nasal Cannula Oxygen Flow Rate 2 Sepsis Recent Fever Within 48 Hours Sepsis New/Unexplained Change in Mental Status Sepsis Action Taken by Nursing 03/06/23 20:33 Temperature 36.6 C Temperature Source Oral Pulse Rate Pulse Rate [Apical] 72 Respiratory Rate 18 Blood Pressure Blood Pressure [Left Arm] 130/72 Blood Pressure Mean Blood Pressure Mean [Left Arm] 91 Pulse Oximetry 91 Oxygen Delivery Method Room Air Oxygen Flow Rate Sepsis Recent Fever Within 48 Hours Sepsis New/Unexplained Change in Mental Status Sepsis Action Taken by Nursing Laboratory Data 03/06/23 18:00 03/06/23 18:00 Lab Results 03/06/23 03/06/23 03/06/23 Range/Units 18:00 18:00 18:00 WBC 13.68 H (4.8-10.8) K/ul RBC 4.99 (4.20-5.40) M/uL Hgb 14.5 (12.0-16.0) g/dl Hct 42.7 (37.0-47.0) % MCV 85.6 (80.0-100.0) fL MCH 29.1 (25.0-34.0) pg MCHC 34.0 (32.0-36.0) g/dL RDW Std Deviation 51.4 H (36.4-46.3) fL RDW Coeff of [place] 16.5 H (11.5-14.5) % Plt Count 159 (130-400) K/uL MPV 12.3 (9.4-12.4) fL Immature Gran % (Auto) 0.6 % Neut % (Auto) 72.2 % Lymph % (Auto) 18.6 % [place] % (Auto) 7.2 % Eos % (Auto) 1.2 % Baso % (Auto) 0.2 % Neut # (Auto) 9.87 H (1.40-6.50) K/uL Lymph # (Auto) 2.55 (1.20-3.40) K/uL [place] # (Auto) 0.99 H (0.11-0.59) K/uL Eos # (Auto) 0.16 (0.00-0.50) K/uL Baso # (Auto) 0.03 (0.00-0.20) K/uL Immature Gran # (Auto) 0.08 (0.01-0.20) K/uL Absolute Nucleated RBC 0.02 (0.00-0.12) K/uL Nucleated RBC % (auto) 0.1 % PT 11.7 (9.0-12.0) Seconds INR 1.1 (0.9-1.1) Sodium 147 H (136-145) mmol/L Potassium 2.6 L (3.5-5.1) mmol/L Chloride 112 H (98-107) mmol/L Carbon Dioxide 23 (21-32) mmol/L Anion Gap 12 H (3-11) BUN 13 (6-23) mg/dl Creatinine 0.82 (0.6-1.2) mg/dl Est Cr Clr Drug Dosing Not Reportable Est GFR ( Amer) 77.2 ml/min Est GFR (Non-Af Amer) 66.6 ml/min BUN/Creatinine Ratio 15.9 (10-20) Glucose 138 H (70-99(Fasting)) mg/dl Calcium 7.1 L (8.6-10.3) mg/dl Magnesium 0.8 L* (1.7-2.4) mg/dl Total Bilirubin 0.6 (0.2-1.0) mg/dl AST 17 (13-39) U/L ALT 8 (7-52) U/L Alkaline Phosphatase 51 (34-104) U/L Troponin I High Sens 16.4 H (0-14) pg/ml Total Protein 5.6 L (6.0-8.3) gm/dl Albumin 3.5 (3.4-5.0) gm/dl Globulin 2.1 L (2.5-4.0) gm/dl Albumin/Globulin Ratio 1.7 (0.9-2) Lipase 12 (11-82) U/L TSH 7.955 H (0.300-4.500) uIu/ml Free T4 0.84 (0.61-1.60) ng/dl Adenovirus (PCR) (NotDetected) B. pertussis DNA (PCR) (NotDetected) B.parapertussis DNA PCR (NotDetected) C. pneumoniae DNA (PCR) (NotDetected) Coronavirus OC43 (PCR) (NotDetected) Coronavirus HKU1 (PCR) (NotDetected) Coronavirus 229E (PCR) (NotDetected) SARS-CoV-2 (PCR) (NotDetected) Coronavirus NL63 (PCR) (NotDetected) Human Metapneumovir PCR (NotDetected) Influenza Type A (PCR) (NotDetected) Influenza Type B (PCR) (NotDetected) M. pneumoniae (PCR) (NotDetected) Parainfluenza 1 (PCR) (NotDetected) Parainfluenza 2 (PCR) (NotDetected) Parainfluenza 3 (PCR) (NotDetected) Parainfluenza 4 (PCR) (NotDetected) RSV (PCR) (NotDetected) Entero/Rhino (PCR) (NotDetected) 03/06/23 Range/Units 19:39 WBC (4.8-10.8) K/ul RBC (4.20-5.40) M/uL Hgb (12.0-16.0) g/dl Hct (37.0-47.0) % MCV (80.0-100.0) fL MCH (25.0-34.0) pg MCHC (32.0-36.0) g/dL RDW Std Deviation (36.4-46.3) fL RDW Coeff of [place] (11.5-14.5) % Plt Count (130-400) K/uL MPV (9.4-12.4) fL Immature Gran % (Auto) % Neut % (Auto) % Lymph % (Auto) % [place] % (Auto) % Eos % (Auto) % Baso % (Auto) % Neut # (Auto) (1.40-6.50) K/uL Lymph # (Auto) (1.20-3.40) K/uL [place] # (Auto) (0.11-0.59) K/uL Eos # (Auto) (0.00-0.50) K/uL Baso # (Auto) (0.00-0.20) K/uL Immature Gran # (Auto) (0.01-0.20) K/uL Absolute Nucleated RBC (0.00-0.12) K/uL Nucleated RBC % (auto) % PT (9.0-12.0) Seconds INR (0.9-1.1) Sodium (136-145) mmol/L Potassium (3.5-5.1) mmol/L Chloride (98-107) mmol/L Carbon Dioxide (21-32) mmol/L Anion Gap (3-11) BUN (6-23) mg/dl Creatinine (0.6-1.2) mg/dl Est Cr Clr Drug Dosing Est GFR ( Amer) ml/min Est GFR (Non-Af Amer) ml/min BUN/Creatinine Ratio (10-20) Glucose (70-99(Fasting)) mg/dl Calcium (8.6-10.3) mg/dl Magnesium (1.7-2.4) mg/dl Total Bilirubin (0.2-1.0) mg/dl AST (13-39) U/L ALT (7-52) U/L Alkaline Phosphatase (34-104) U/L Troponin I High Sens (0-14) pg/ml Total Protein (6.0-8.3) gm/dl Albumin (3.4-5.0) gm/dl Globulin (2.5-4.0) gm/dl Albumin/Globulin Ratio (0.9-2) Lipase (11-82) U/L TSH (0.300-4.500) uIu/ml Free T4 (0.61-1.60) ng/dl Adenovirus (PCR) Not Detected (NotDetected) B. pertussis DNA (PCR) Not Detected (NotDetected) B.parapertussis DNA PCR Not Detected (NotDetected) C. pneumoniae DNA (PCR) Not Detected (NotDetected) Coronavirus OC43 (PCR) Not Detected (NotDetected) Coronavirus HKU1 (PCR) Not Detected (NotDetected) Coronavirus 229E (PCR) Not Detected (NotDetected) SARS-CoV-2 (PCR) Not Detected (NotDetected) Coronavirus NL63 (PCR) Not Detected (NotDetected) Human Metapneumovir PCR Not Detected (NotDetected) Influenza Type A (PCR) Not Detected (NotDetected) Influenza Type B (PCR) Not Detected (NotDetected) M. pneumoniae (PCR) Not Detected (NotDetected) Parainfluenza 1 (PCR) Not Detected (NotDetected) Parainfluenza 2 (PCR) Not Detected (NotDetected) Parainfluenza 3 (PCR) Not Detected (NotDetected) Parainfluenza 4 (PCR) Not Detected (NotDetected) RSV (PCR) Not Detected (NotDetected) Entero/Rhino (PCR) Not Detected (NotDetected) Administered Medications Anastrozole (Anastrozole 1 Mg Tab) 1 mg PO QAM ALISSA Stop: 04/06/23 08:59 Last Admin: 03/07/23 08:51 Dose: 1 mg Documented By: JAMIE Co-signed By: Apixaban (Apixaban 5 Mg Tablet) 5 mg PO BID ALISSA Stop: 04/06/23 08:59 Last Admin: 03/07/23 08:51 Dose: 5 mg Documented By: JAMIE Donepezil HCl (Donepezil Hcl 10 Mg Tab) 10 mg PO HS ALISSA Stop: 04/06/23 20:59 Last Admin: 03/07/23 20:55 Dose: 10 mg Documented By: EJW Potassium Chloride/Sodium Chloride (Normal Saline W/20 Meq Kcl) 20 meq in 1,000 mls @ 70 mls/hr IV .[id number] ALISSA; Protocol Stop: 04/06/23 04:29 Last Admin: 03/07/23 16:53 Dose: 100 mls/hr Documented By: Infusion: 03/07/23 14:56 Dose: 0 mls/hr Documented By: Admin: 03/07/23 04:41 Dose: 100 mls/hr Documented By: VANESSA Pantoprazole Sodium 40 mg/ (Syringe) 10 mls @ 5 mls/min IV BID ALISSA Stop: 04/06/23 20:59 Last Admin: 03/07/23 20:54 Dose: 5 mls/min Documented By: ABNER Insulin Aspart (Insulin Aspart Per Unit Charge) 0 units SC ACHS [facility] Stop: 04/06/23 11:29 Last Admin: 03/07/23 20:50 Dose: Not Given Documented By: ABNER Co-signed By: WENDY Admin: 03/07/23 18:45 Dose: 1 units Documented By: ADELINA Co-signed By: RADHA Admin: 03/07/23 13:37 Dose: Not Given Documented By: ADELINA Levothyroxine Sodium (Levothyroxine Sodium 75 Mcg Tablet) 75 mcg PO DAILYBB [facility] Stop: 04/06/23 06:29 Last Admin: 03/07/23 08:50 Dose: 75 mcg Documented By: JAMIE Multivitamins/Minerals (Cerovite Adv Formula Tab) 1 tab PO QAM [facility] Stop: 04/06/23 08:59 Last Admin: 03/07/23 08:52 Dose: 1 tab Documented By: JAMIE Oxybutynin Chloride (Oxybutynin Chloride 5 Mg Tab) 5 mg PO QAM [facility] Stop: 04/06/23 08:59 Last Admin: 03/07/23 08:52 Dose: 5 mg Documented By: JAMIE Potassium Chloride (Potassium Chloride Crtab 20 Meq Tabcr) 20 meq PO BID [facility] Stop: 04/06/23 08:59 Last Admin: 03/07/23 20:55 Dose: 20 meq Documented By: Admin: 03/07/23 08:52 Dose: 20 meq Documented By: JAMIE Rosuvastatin Calcium (Rosuvastatin Calcium 10 Mg Tab) 10 mg PO HS [facility] Stop: 04/06/23 20:59 Last Admin: 03/07/23 20:54 Dose: 10 mg Documented By: ABNER Sertraline HCl (Sertraline Hcl 100 Mg Tablet) 100 mg PO HS ALISSA Stop: 04/06/23 20:59 Last Admin: 03/07/23 20:54 Dose: 100 mg Documented By: ABNER Sucralfate (Sucralfate 1 Gm/10 Ml Udc) 1 gm PO QID ALISSA Stop: 04/06/23 20:59 Last Admin: 03/07/23 20:03 Dose: 1 gm Documented By: ABNER Discontinued Medications Baclofen (Baclofen 10 Mg Tab) 10 mg PO NOW STA Stop: 03/07/23 00:38 Last Admin: 03/07/23 01:36 Dose: 10 mg Documented By: VANESSA Acetaminophen (Ofirmev) 1,000 mg in 100 mls @ 400 mls/hr IV NOW STA Stop: 03/06/23 18:26 Last Infusion: 03/07/23 00:57 Dose: 0 mls/hr Documented By: Admin: 03/06/23 18:22 Dose: 400 mls/hr Documented By: QGV Sodium Chloride (Nss) 1,000 mls @ 125 mls/hr IV .Q8H ALISSA Stop: 04/05/23 18:14 Last Infusion: 03/07/23 04:44 Dose: 0 mls/hr Documented By: Admin: 03/07/23 02:54 Dose: 125 mls/hr Documented By: Infusion: 03/07/23 02:53 Dose: 0 mls/hr Documented By: Admin: 03/06/23 18:22 Dose: 125 mls/hr Documented By: QGV Magnesium Sulfate/Dextrose (Magnesium Sulfate / D5w) 1 gm in 100 mls @ 100 mls/hr IV NOW STA Stop: 03/06/23 19:15 Last Infusion: 03/06/23 21:38 Dose: 100 mls/hr Documented By: Admin: 03/06/23 18:22 Dose: 100 mls/hr Documented By: QGV Magnesium Sulfate/Dextrose (Magnesium Sulfate / D5w) 1 gm in 100 mls @ 100 mls/hr IV NOW STA Stop: 03/06/23 20:42 Last Infusion: 03/07/23 00:57 Dose: 0 mls/hr Documented By: Admin: 03/06/23 20:28 Dose: 100 mls/hr Documented By: JEREMI Famotidine (Pepcid 20mg Iv Push) 20 mg in 5 mls @ 2.5 mls/min IV NOW STA Stop: 03/06/23 20:41 Last Admin: 03/06/23 22:29 Dose: 2.5 mls/min Documented By: JEREMI Pantoprazole Sodium 40 mg/ (Syringe) 10 mls @ 5 mls/min IV NOW ONE Stop: 03/06/23 20:41 Last Admin: 03/06/23 22:29 Dose: 5 mls/min Documented By: JEREMI Magnesium Sulfate/Dextrose (Magnesium Sulfate / D5w) 1 gm in 100 mls @ 50 mls/hr IV Q2H [facility] Stop: 03/07/23 04:29 Last Infusion: 03/07/23 05:07 Dose: 0 mls/hr Documented By: Admin: 03/07/23 02:54 Dose: 50 mls/hr Documented By: Infusion: 03/07/23 02:54 Dose: 50 mls/hr Documented By: Admin: 03/07/23 00:54 Dose: 50 mls/hr Documented By: VANESSA Magnesium Sulfate/Dextrose (Magnesium Sulfate / D5w) 1 gm in 100 mls @ 50 mls/hr IV Q2H ALISSA Stop: 03/07/23 08:59 Last Infusion: 03/07/23 05:37 Dose: 0 mls/hr Documented By: Admin: 03/07/23 05:03 Dose: 50 mls/hr Documented By: VANESSA Famotidine 20 mg/ Syringe 5 mls @ 2.5 mls/min IV Q12 ALISSA Stop: 04/06/23 08:59 Last Admin: 03/07/23 09:56 Dose: 2.5 mls/min Documented By: JAMIE Insulin Aspart (Insulin Aspart Per Unit Charge) 15 units SC BID ALISSA Stop: 04/06/23 08:59 Last Admin: 03/07/23 09:17 Dose: 15 units Documented By: JAMIE Co-signed By: NEVA Insulin Glargine (Lantus Per Unit Charge) 17 units SC QAM ALISSA Stop: 04/06/23 08:59 Last Admin: 03/07/23 09:18 Dose: 17 units Documented By: JAMIE Co-signed By: NEVA Ioversol (Optiray 320 500ml) 106 ml IV ONCE ONE Stop: 03/06/23 19:48 Last Admin: 03/06/23 19:47 Dose: 106 ml Documented By: SHIVA Potassium Chloride (Potassium Chloride Pwd 20 Meq Pack) 40 meq PO NOW STA Stop: 03/06/23 21:07 Last Admin: 03/06/23 22:29 Dose: 40 meq Documented By: JEREMI Imaging Data Radiologist's Impression: Chest CTA 03/06/23 18:12 Exam(s): CTA CHEST W/WO Contrast IV Amt: 106ml EXAM: CT Angiography Chest With Intravenous Contrast CLINICAL HISTORY: Reason for exam: cp into back. TECHNIQUE: Axial computed tomographic angiography images of the chest with intravenous contrast. CTDI is 25.84 mGy and DLP is 808.58 mGy-cm. Automated exposure control was utilized for the study. A dose lowering technique was utilized adhering to the principles of ALARA. MIP reconstructed images were created and reviewed. CONTRAST: Patient received 106ml of IV contrast COMPARISON: None. FINDINGS: Pulmonary arteries: Unremarkable. No pulmonary embolism. Normal enhancement of the pulmonary arteries. Aorta: Calcified atherosclerotic disease throughout the aorta with no aneurysm or dissection. Lungs: The lungs are underexpanded with vascular crowding. There is mild posterior dependent atelectasis. There is scattered interstitial prominence more so in the subpleural region with reticulonodular pattern suggestive of chronic interstitial lung disease versus early fibrosis. No mass. Pleural space: Unremarkable. No significant effusion. No pneumothorax. Heart: Unremarkable. No significant pericardial effusion. No evidence of RV dysfunction. Normal cardiac size with coronary artery calcifications. Mediastinum: Mild thickening of the wall of the distal esophagus with trace debris within the esophagus which may indicate reflux. Bones/joints: Degenerative disease of the spine with diffuse osteopenia. Degenerative disease of bilateral shoulders. No acute fracture. No dislocation. Soft tissues: Unremarkable. Lymph nodes: Unremarkable. No enlarged lymph nodes. Gallbladder and bile ducts: Tiny gallstones. Remainder of the visualized upper abdomen unremarkable. Stomach and bowel: Upper abdominal structures reveal incomplete distention of the stomach with prominence of the wall diffusely, cannot exclude gastritis. Intraperitoneal space: There is fluid collection along the right anterior chest measuring approximately 7.2 x 2.0 cm with a well delineated margins suggestive of postoperative seroma. Tubes, lines and devices: There is a left-sided chest port in place. IMPRESSION: 1. No pulmonary embolus or aortic dissection. 2. Decreased inspiration with vascular crowding and bilateral posterior dependent atelectasis. Possible underlying chronic interstitial lung disease versus early fibrosis. 3. No focal infiltrate or pleural effusion. No pneumothorax. 4. Tiny gallstones. 5. Cannot exclude gastritis, clinical correlation recommended. 6. Possible reflux with distal esophagitis. If indicated, these findings may be further assessed with upper endoscopy nonacute setting. 7. Right anterior chest postoperative seroma with infectious process not excluded. If indicated, this can be further assessed with ultrasound. Electronically signed by: Court Singh MD 03/06/23 20:35 PM Discharge Plan Visit Data Chief Complaint: Chest Pain ED Provider: Darcy Bland Discharge Problem: Chest pain, Hypokalemia, Hypomagnesemia, Elevated troponin Patient Disposition: Admitted As Inpatient Discharge Instructions Interventions: ED Discharge Assessment Last Done: 03/07/23 00:30
[2023-03-06] MEDS: SODIUM CHLORIDE 0.9% 1,000 ML IV SCH (18:22)
[2023-03-06 18:46] LABS: Basophils # (auto) 0.03 K/uL (0.00-0.20); Basophils % (auto) 0.2 %; Eosinophils # (auto) 0.16 K/uL (0.00-0.50); Eosinophils % (auto) 1.2 %; Hematocrit (blood only) 42.7 % (37.0-47.0); Hemoglobin 14.5 g/dl (12.0-16.0); Immature Granulocytes # (auto) 0.08 K/uL (0.01-0.20); Immature Granulocytes % (auto) 0.6 %; Lymphocytes # (auto) 2.55 K/uL (1.20-3.40); Lymphocytes % (auto) 18.6 %; Mean Corpuscular Hemoglobin 29.1 pg (25.0-34.0); Mean Corpuscular Volume 85.6 fL (80.0-100.0); Mean Platelet Volume 12.3 fL (9.4-12.4); Monocytes # (auto) 0.99 K/uL (0.11-0.59); Monocytes % (auto) 7.2 %; Neutrophils # (auto) 9.87 K/uL (1.40-6.50); Neutrophils % (auto) 72.2 %; Nucleated RBC # (auto) 0.02 K/uL (0.00-0.12); Nucleated RBC % (auto) 0.1 %; Platelet Count 159 K/uL (130-400); RDW Coefficient of Variation 16.5 % (11.5-14.5); RDW Standard Deviation 51.4 fL (36.4-46.3); Red Blood Count 4.99 M/uL (4.20-5.40); White Blood Count 13.68 K/ul (4.8-10.8)
[2023-03-06 19:02] LABS: Troponin I High Sensitivity 16.4 pg/ml (0-14)
[2023-03-06 19:06] LABS: Anion Gap 12 (3-11); BUN Creatinine Ratio 15.9 (10-20); Blood Urea Nitrogen 13 mg/dl (6-23); Calcium 7.1 mg/dl (8.6-10.3); Carbon Dioxide 23 mmol/L (21-32); Chloride 112 mmol/L (98-107); Est GFR (African American) 77.2 ml/min; Est GFR (Non-African American) 66.6 ml/min; Glucose 138 mg/dl (70-99(Fasting)); Potassium 2.6 mmol/L (3.5-5.1); Sodium 147 mmol/L (136-145)
[2023-03-06 19:12] LABS: Thyroid Stimulating Hormone 7.955 uIu/ml (0.300-4.500)
[2023-03-06 19:13] LABS: INR 1.1 (0.9-1.1); Prothrombin Time 11.7 Seconds (9.0-12.0)
[2023-03-06 19:15] LABS: Alanine Aminotransferase 8 U/L (7-52); Albumin Globulin Ratio 1.7 (0.9-2); Albumin Level 3.5 gm/dl (3.4-5.0); Alkaline Phosphatase 51 U/L (34-104); Aspartate Aminotransferase 17 U/L (13-39); Bilirubin,Total 0.6 mg/dl (0.2-1.0); Globulin 2.1 gm/dl (2.5-4.0); Lipase 12 U/L (11-82); Magnesium 0.8 mg/dl (1.7-2.4); Total Protein 5.6 gm/dl (6.0-8.3)
[2023-03-06 19:46] LABS: T4 Free Thyroxine 0.84 ng/dl (0.61-1.60)
[2023-03-06] MEDS ORDERED: OPTIRAY 320 500ml IV ONE (19:47)
--- NOTE | 2023-03-06 20:36 | CT Scan Report ---
Exam(s): CTA CHEST W/WO Contrast IV Amt: 106ml EXAM: CT Angiography Chest With Intravenous Contrast CLINICAL HISTORY: Reason for exam: cp into back. TECHNIQUE: Axial computed tomographic angiography images of the chest with intravenous contrast. CTDI is 25.84 mGy and DLP is 808.58 mGy-cm. Automated exposure control was utilized for the study. A dose lowering technique was utilized adhering to the principles of ALARA. MIP reconstructed images were created and reviewed. CONTRAST: Patient received 106ml of IV contrast COMPARISON: None. FINDINGS: Pulmonary arteries: Unremarkable. No pulmonary embolism. Normal enhancement of the pulmonary arteries. Aorta: Calcified atherosclerotic disease throughout the aorta with no aneurysm or dissection. Lungs: The lungs are underexpanded with vascular crowding. There is mild posterior dependent atelectasis. There is scattered interstitial prominence more so in the subpleural region with reticulonodular pattern suggestive of chronic interstitial lung disease versus early fibrosis. No mass. Pleural space: Unremarkable. No significant effusion. No pneumothorax. Heart: Unremarkable. No significant pericardial effusion. No evidence of RV dysfunction. Normal cardiac size with coronary artery calcifications. Mediastinum: Mild thickening of the wall of the distal esophagus with trace debris within the esophagus which may indicate reflux. Bones/joints: Degenerative disease of the spine with diffuse osteopenia. Degenerative disease of bilateral shoulders. No acute fracture. No dislocation. Soft tissues: Unremarkable. Lymph nodes: Unremarkable. No enlarged lymph nodes. Gallbladder and bile ducts: Tiny gallstones. Remainder of the visualized upper abdomen unremarkable. Stomach and bowel: Upper abdominal structures reveal incomplete distention of the stomach with prominence of the wall diffusely, cannot exclude gastritis. Intraperitoneal space: There is fluid collection along the right anterior chest measuring approximately 7.2 x 2.0 cm with a well delineated margins suggestive of postoperative seroma. Tubes, lines and devices: There is a left-sided chest port in place. IMPRESSION: 1. No pulmonary embolus or aortic dissection. 2. Decreased inspiration with vascular crowding and bilateral posterior dependent atelectasis. Possible underlying chronic interstitial lung disease versus early fibrosis. 3. No focal infiltrate or pleural effusion. No pneumothorax. 4. Tiny gallstones. 5. Cannot exclude gastritis, clinical correlation recommended. 6. Possible reflux with distal esophagitis. If indicated, these findings may be further assessed with upper endoscopy nonacute setting. 7. Right anterior chest postoperative seroma with infectious process not excluded. If indicated, this can be further assessed with ultrasound. Electronically signed by: Court Singh MD 03/06/23 20:35 PM
[2023-03-06] MEDS ORDERED: PANTOprazole 40 MG in SYRINGE 0 ML IV ONE (20:40)
[2023-03-06] MEDS ORDERED: FAMOTIDINE 20MG IV PUSH 20 MG/5 ML SYR IV STA (20:40)
[2023-03-06 20:59] LABS: Adenovirus PCR Not Detected (NotDetected); Bordetella parapertussis PCR Not Detected (NotDetected); Bordetella pertussis PCR Not Detected (NotDetected); Chlamydia pneumoniae PCR Not Detected (NotDetected); Coronavirus 229E PCR Not Detected (NotDetected); Coronavirus CoV-2 (COVID19)PCR Not Detected (NotDetected); Coronavirus HKU1 PCR Not Detected (NotDetected); Coronavirus NL63 PCR Not Detected (NotDetected); Coronavirus OC43PCR Not Detected (NotDetected); Human Metapneumovirus PCR Not Detected (NotDetected); Influenza A PCR Not Detected (NotDetected); Influenza B PCR Not Detected (NotDetected); Mycoplasma pneumoniae PCR Not Detected (NotDetected); Parainfluenza Virus 1 PCR Not Detected (NotDetected); Parainfluenza Virus 2 PCR Not Detected (NotDetected); Parainfluenza Virus 3 PCR Not Detected (NotDetected); Parainfluenza Virus 4 PCR Not Detected (NotDetected); Respiratory Syncytial VirusPCR Not Detected (NotDetected); Rhinovirus/Enterovirus PCR Not Detected (NotDetected)
[2023-03-06] MEDS ORDERED: POTASSIUM CHLORIDE PWD 20 MEQ PACK PO STA (21:06)
--- NOTE | 2023-03-06 23:04 | History & Physical Report ---
Date of Service March 06, 2023 Assessment & Plan (1) Chest pain: Plan: 82 F with past medical history of T2DM, CVA, DVT, hypothyroidism, urinary incontinence, breast cancer s/p double mastectomy, radiation, and GERD, who presents to the emergency from with chest pain + radiation to right shoulder, back. Admitted to the hospital for correction of electrolyte derangement, pain management. Chest pain -Acute. Mediastinal chest pain reproducible on exam. Suspect malnutrition vs gastritis/pericarditis or GERD, as opposed to ACS, PE, or pneumonia. -EKG: NSR, nonspecific ST wave changes. -Labs: Troponin-16.4, K-3.6, Mg-0.8, Ca-7.1. Lipase, transaminases, total bilirubin normal. * Admit to [facility] telemetry * Repeat troponin pending. * Tylenol 1000 mg every 8 hours as needed for chest pain. Leukocytosis -Etiology unclear. Respiratory viral panel negative. Afebrile on arrival to the ED, and on admission. -Likely due to malnutrition, electrolytic derangements. * Trend WBC on CBC. Hypokalemia/hypomagnesemia -Potassium 2.6, magnesium 0.8. Suspect due to malnutrition, diarrhea. -S/p repletion in the ED (p.o. KCl x40 mEq, IV magnesium sulfate x2 g). * P.o. KCl 20 mEq 3 times daily * IV MgSO4 x2 g * Trend a.m. magnesium, potassium, phosphorus. Replete as indicated. Elevated troponin -16.4 on admission. EKG mostly normal with nonspecific ST wave changes. * Repeat troponin pending. T2DM + CKD 3B -Chronic. History of stage III CKD. GFR on admission 66.3 (technically stage II, mild CKD) -Managed on oral metformin, Levemir 25 units every morning, NovoLog 22 units twice daily. Metformin held on admission. -Glucose 138 on admission. * Levemir dose reduced to 17 units every morning * NovoLog reduced to 15 units twice daily * BSG checks ACHS History of DVT -Chronic. Managed on Eliquis 5 mg twice daily. * Continue home Eliquis. Anxiety/depression -Managed on sertraline 100 mg. Started since October. -Also on as needed lorazepam. However, patient reports not having used in months. -Patient continues to report depressed mood with no improvement since initiation of sertraline. -Patient also follows with psychotherapy and was scheduled for therapist visit tomorrow. -Patient reports apathy regarding . However, she denies suicidal ideation or intent. * Continue sertraline 100 mg. Would consider increasing dose to 150 mg or augmenting with atypical antidepressant like Wellbutrin or mirtazapine. * Holding lorazepam History of CVA -Managed on aspirin. * Aspirin held due to reported dark stools. Hypothyroidism -Chronic. Managed on levothyroxine 75 mcg. * Continue home levothyroxine Memory loss -Since October 2022. Started as result of CVA, retrograde amnesia. Managed on donepezil 10 mg nightly * Continue home donepezil Urinary incontinence -Chronic. Managed on oxybutynin 5 mg every morning. * Continue home oxybutynin Dyslipidemia -Chronic. Managed on rosuvastatin 10 mg nightly. * Continue home rosuvastatin History of breast cancer -S/p double mastectomy. Was in remission for 16 years until 2 years ago. Started on radiation, and has been on radiation since. * Continue home anastrozole 1 mg every morning Code: Conditional code: CPR only, including temporary ventilation. Does not want to be intubated Dispo: Med-Surg telemetry FEN/GI: NS @maintenance rate. Heart healthy/Carb consistent DVT Prophylaxis: Eliquis 5 mg twice daily PT/OT: Yes Consults: None Case Management: Yes (2) Leukocytosis: (3) Hypokalemia: (4) Hypomagnesemia: (5) Elevated troponin: (6) Hypocalcemia: (7) Diabetes mellitus with stage 3b chronic kidney disease, with long-term current use of insulin: (8) Esophageal dysphagia: (9) Memory loss: (10) Urinary incontinence: (11) Cerebrovascular disease: (12) Anxiety: History of Present Illness Primary Care Provider: DO Sharon Wagner is an 82-year-old woman with a past medical history of CVA, DVT, CKD, type 2 diabetes, GERD, breast cancer s/p double mastectomy, hypothyroidism, CLL, and urinary frequency with incontinence, who presented to the emergency room from home with a complaint of an intermittent squeezing, pressure-like chest pain radiating to her right shoulder and back. Symptoms began yesterday insidiously, without provocation. Patient initially thought it was heartburn. However, chest pain progressively worsened over the day. At nighttime pain was so severe it woke her up from sleep at one point. ROS + nausea, shortness of breath, odynophagia, esophageal dysphagia, and diarrhea breath (since last week, prior to onset of chest pain). She also reports having very little appetite over the past week. However, she denies abdominal pain, or vomiting. In the ED, vitals are within normal limits. Labs were notable for the following: WBC-13.68, sodium-147, K-2.6, Mg-0.8, Ca-7.1, TSH-7.955 (free T4- 0.84), and troponin-16.4. Lipase was normal, as were transaminases. Viral panel was completely negative. Chest CTA was negative for PE or significant effusion. She received Allergies Allergy/AdvReac Type Severity Reaction Status Date / Time adhesive Allergy Intermediate BLISTERS Verified 11/21/22 09:31 amitriptyline AdvReac Intermediate HALLUCINATI Verified 11/21/22 09:31 ONS atorvastatin AdvReac Intermediate JOINT PAIN Verified 11/21/22 09:31 cephalexin AdvReac Intermediate N/V Verified 11/21/22 09:31 codeine AdvReac Intermediate NAUSEA AND Verified 11/21/22 09:31 VOMITING doxycycline AdvReac Intermediate GI SYMPTOMS Verified 11/21/22 09:31 hydroxychloroquine AdvReac Intermediate Diarrhea Verified 11/21/22 09:31 [From Plaquenil] liraglutide AdvReac Intermediate GI UPSET Verified 11/21/22 09:31 phenol AdvReac Intermediate GI UPSET Verified 11/21/22 09:31 pioglitazone AdvReac Intermediate SEVERE Verified 11/21/22 09:31 FATIGUE tramadol AdvReac Intermediate N/V Verified 11/21/22 09:31 zoster vaccine live AdvReac Unknown Unknown Verified 11/21/22 09:31 [From Zostavax (PF)] Home Medications Medication Instructions Recorded Confirmed Type vit C 226 mg-vit E 90 mg-copper 1 cap PO QAM 09/04/18 03/06/23 History 0.8 mg-zinc oxide-lutein 5 mg capsule (PreserVision Lutein) aspirin 81 mg chewable tablet 81 mg PO QAM 01/21/19 03/06/23 History anastrozole 1 mg tablet 1 mg PO QAM 01/19/21 03/06/23 History apixaban 5 mg tablet (Eliquis) 5 mg PO BID 05/05/21 03/06/23 History Wheelchair (Powered) #1 ea 08/04/21 03/06/23 Rx alendronate 70 mg tablet 70 mg PO Q7D 08/26/21 03/06/23 History Wheelchair (Powered) (Power #1 ea 09/08/21 03/06/23 Rx Wheelchair) blood sugar diagnostic (OneTouch #300 ea 12/21/21 03/06/23 Rx Ultra Test strips) diaper,brief,adult,disposable #60 ea 05/24/22 03/06/23 Rx incontinence pad, liner, disp #60 ea 05/24/22 03/06/23 Rx (Underpads Regular) Wheeled Walker #1 ea 06/08/22 03/06/23 Rx levothyroxine 75 mcg tablet 75 mcg PO QAM 06/14/22 03/06/23 History insulin aspar prot-insulin aspart 22 unit subcut BID 08/25/22 03/06/23 History 100 unit/mL (70-30) subcutaneous pen (Novolog Mix 70-30FlexPen U-100) insulin detemir U-100 100 unit/mL 25 unit (0.25 mL) subcut QAM #30 mL 08/25/22 03/06/23 Rx (3 mL) subcutaneous pen (Levemir FlexTouch U-100 Insulin) pen needle, diabetic 32 gauge x #100 ea 10/30/22 03/06/23 Rx 5/32" (BD Pratima 2nd Gen Pen Needle) rosuvastatin 10 mg tablet 10 mg PO HS #90 tabs 12/28/22 03/06/23 Rx omeprazole 40 mg capsule,delayed 40 mg PO QAM #90 caps 02/19/23 03/06/23 Rx release hydrocodone 5 mg-acetaminophen 325 0.5 tab PO Q6H PRN pain #10 tabs 02/22/23 03/06/23 Rx mg tablet lorazepam 0.5 mg tablet (Ativan) 0.5 mg PO TID PRN Anxiety 02/22/23 03/06/23 History donepezil 10 mg tablet 10 mg PO HS 03/06/23 03/06/23 History metformin 500 mg tablet,extended 500 mg PO HS 03/06/23 03/06/23 History release 24 hr oxybutynin chloride 5 mg tablet 5 mg PO QAM 03/06/23 03/06/23 History sertraline 100 mg tablet 100 mg PO HS 03/06/23 03/06/23 History Past Med/Surg History Medical History (Updated 03/06/23 @ 23:27 by Claire Jose MD) Acute CVA (cerebrovascular accident) 05/2022,brought to [place], "symptoms but nothing found on imaging"-still has left sided weakness and stuttering when speaking "if worked up" Acute exacerbation of chronic obstructive pulmonary disease (COPD) Aneurysm, cerebral, nonruptured LV4 aneurysm treated with stent/coil 2016 Per 01/30/21 Head CTA = No change in a 4 mm saccular aneurysm of the distal right middle cerebral artery and a 2 mm basilar artery aneurysm. Anxiety Asthma well controlled per pt > no inhalers Atrial aneurysm Atrial fib/flutter, transient Follows [facility] > no cardioversions Loop recorder in place - [employer]- placed 09/05/18 Atrial tachycardia Breast cancer DX in 2009> bilat mastectomy >no chemo Recently diagnosed with metastatic right breast carcinoma 08/13/20 Carotid artery stenosis Follows with [facility]. S/p CEA years ago Per 01/30/21 neck CTA- severe stenosis at origin of left vertebral artery. Occlusion of the proximal to mid right vertebral artery with distal reconstitution. Stable 5 mm outpouching of the proximal right internal carotid artery with possible associated short segment dissection, unchanged. Moderate atherosclerotic plaque with the major vessels of the neck Central stenosis of spinal canal Chronic kidney disease, stage 3a Chronic obstructive pulmonary disease Cirrhosis hx CKD (chronic kidney disease) CLL (chronic lymphocytic leukemia) hx Coronary artery calcification Based on calcified coronary arteries on CT Scan Abd/Pelvis 08/03/20 Deep vein thrombosis several yrs ago> left leg > caused from control pills Depression Diabetes mellitus type 2, uncontrolled Diabetic nephropathy Diabetic neuropathy Gastroesophageal reflux disease History of COVID-19 (~05/2021) jul or august 2021, pcr test [place], admitted w/stroke, tested while in hospital- found to be covid +=in hospital for 3 weeks for stroke and covid>resolved. History of CVA (cerebrovascular accident) Hx of sleep apnea waiting on new cpap; getting a new test 07/24/22 Hypertension Hypothyroidism EMILY (iron deficiency anemia) Left hemiparesis From stroke in November 2019>uses walker or wheelchair due to weakness Left ventricular outflow tract obstruction Lumbar radiculopathy Lumbar spinal stenosis Lumbar stenosis with neurogenic claudication Metastatic breast carcinoma b/l mastectomy about for initial breast cancer Nonalcoholic steatohepatitis PA (obstructive sleep apnea) Osteopenia Polycythemia Pseudobulbar affect Recurrent cancer of right breast (08/13/20) Initially diagnosed 2009- s/p bilateral mastectomy recurrence to chest wall s/p XRT 07/2020 Sensorineural hearing loss (SNHL) of both ears Stroke December 05, 2019 > [facility] > has short term memory loss as result > left side weakness TIA (transient ischemic attack) Jan 2021 TMJ syndrome "don't have it all them time, just clicks, no locking" Urinary frequency Urinary incontinence Vertebral artery stenosis Per 01/30/21 neck CTA- severe stenosis at origin of left vertebral artery. Occlusion of the proximal to mid right vertebral artery with distal reconstitution. Stable 5 mm outpouching of the proximal right internal carotid artery with possible associated short segment dissection, unchanged. Moderate atherosclerotic plaque with the major vessels of the neck Surgical History H/O varicose vein ligation and stripping left leg History of appendectomy History of brain surgery Cerebral angiogram and stent-assisted coil embolization of the It PICA aneurysm. 12/22/2015 > follows with [facility] History of breast lump/mass excision History of carotid endarterectomy Right side per records Over 6 yrs ago > [facility] History of cataract surgery Right: July 2012 Left: August 2012 History of colonoscopy History of hysterectomy Ovaries intact History of mastectomy bilateral September 2009 History of parathyroid surgery Excision of benign neoplasm History of shoulder surgery Right shoulder arthroscopic labral debridement, subacromial decompression, and acromioplasty excision distal clavicle, biceps tenotomy. 06/15/2014 History of total knee replacement left 01/11/2012 Hx of excision of mass from chest wall > right side > radiation now complete Hx of tonsillectomy Port-A-Cath in place (02/22/22) Insertion Access Port with Fluoroscopy to left internal jugular vein (Left) - Joseph Ingram, DO, FACS Family History Grandmother No problems noted. Father Lung disease Lung cancer Mother Cancer Hypertension Unknown Colon cancer Son Anxiety Depression Kidney stones Alcohol abuse Grandmother (Maternal) Lung cancer Sister COPD (chronic obstructive pulmonary disease) Son MVA (motor vehicle accident) Son Rheumatic fever Daughter Medical history unknown Denies family history of Ovarian cancer Prostate cancer Myocardial infarction Breast cancer Bleeding disorder Social History Smoking Status: Current some day smoker Tobacco Type: Cigarettes Age Started Using Tobacco: 16; Cigarettes Per Day: 1 pack every 2-3 days; Second Hand Exposure: Yes; Do You Dip or Chew Tobacco: No; Hx Alcohol Use: No Hx Substance Use: No Preferred Language: Japanese Communication Ability: Effective Communication Ability Comment: Expressive Aphasia Visual Impairment: No Limitations Hearing Ability: Normal Chief Media Officer Required: No Beliefs That Will Affect Care: None marital status: Current Living Situation: Spouse current occupational status: retired 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 [employer] How many Children do You have: 4 How many Children do You have Comment: Pregnancies:6 Children:4 :1 Feels Safe at Home: Yes Safety Concerns: Feels Safe At This Time Childhood Exposure to Second-Hand Smoke: Yes Diet: regular Diet Comment: Regular caffeine: Yes during the past year weight has: remained stable Dental Care, Regularly: No Physical Activity Frequency: 3-4 Times per Week Physical Activity Frequency Comment: walking Seatbelt Use: never Assistive Devices: Nebulizer and Walker Review of Systems Review of Systems: All systems reviewed & are unremarkable except as noted in HPI & below Physical Exam Physical Exam: General: No acute distress HEENT: PERRLA. Normal conjunctiva, anicteric sclera. Oropharynx normal. Respiratory: Normal respiratory effort, CTABL. Mediastinal chest wall moderately tender to palpation. Chest wall: Postmastectomy changes of the chest wall. Mediastinal chest wall moderately tender to palpation. Chest wall port on the left side. Cardiovascular: RRR without murmurs, gallops, or rubs. No pedal edema. GI: Soft abdomen with normal bowel sounds heard on auscultation. Nontender x4 quadrants Neuro: Alert and oriented x3. Results & Data Results & Data Vital Signs (Past 12 Hours) Vital Signs Temp Pulse Pulse Resp BP BP Pulse Ox 03/06/23 22:39 68 18 138/61 97 03/06/23 22:18 71 03/06/23 20:33 36.6 C 72 18 130/72 91 03/06/23 19:33 77 18 154/88 H 93 03/06/23 18:22 81 03/06/23 18:18 16 96 03/06/23 18:18 96 03/06/23 18:07 82 16 97 03/06/23 18:07 36.8 C 81 16 190/119 H 96 O2 Del Method O2 Flow Rate 03/06/23 22:39 Room Air 03/06/23 22:18 03/06/23 20:33 Room Air 03/06/23 19:33 Nasal Cannula 2 03/06/23 18:22 03/06/23 18:18 Nasal Cannula 03/06/23 18:18 Nasal Cannula 03/06/23 18:07 Room Air 03/06/23 18:07 Code Status & VTE Plan VTE Prophylaxis Plan VTE Prophylaxis will be ordered: Yes Supervising Physician Co-Signing Physician Notes Attending addendum: I have physically seen this patient, have supervised the medical residents activities, and agree with the H&P unless as otherwise noted. Assessment and Plan: Chest pain- The patient will be admitted to telemetry for serial cardiac enzymes, serial EKG's, cardiac rhythm monitoring and a 2-D echocardiogram with Dopplers. Troponin minimally elevated at 16.4, likely type II supply/demand mismatch More likely associated with underlying gastritis/GERD/esophagitis Famotidine 20 mg IV twice daily. Would avoid PPIs due to potentially aggravating and/or causing low magnesium Electrolyte abnormalities/hypomagnesemia/hypokalemia- Magnesium 0.8 Potassium 2.6 Has received 2 g of magnesium IV in ED, will give additional 2 g IV now Klor-Con 20 mEq p.o. twice daily, after having received 40 mEq x 1 from the ED NSS + KCl 20 mEq at 100 mL/h Follow serial CBC with differential, renal function panel and magnesium levels Likely causes are diarrheal illness for the past week, and possibly the omeprazole she is on Diarrhea- Patient ports having had diarrhea for 1 week, but has not had a bowel movement in 24 hours at this point She did have a history of norovirus and enterotoxigenic E. coli on 11/03/2022 necessitating admission to the hospital She may have had a reactivation of either 1 or both of these, which are self- limited, and /or have temporarily slowed down due to use of antidiarrheal agents Stool PCR is ordered if recurrence DVT history- Continue Eliquis Remaining orders and notations as noted Resident Activity Tracking Resident Involvement: Resident Care Provided Care Provided: Adult Hospital Medicine
[2023-03-07] MEDS ORDERED: BACLOFEN 10 MG TAB PO PRN (00:37)
[2023-03-07] MEDS ORDERED: BACLOFEN 10 MG TAB PO STA (00:37)
[2023-03-07] MEDS ORDERED: ACETAMINOPHEN 500 MG TAB PO PRN (00:44)
[2023-03-07] MEDS: MAGNESIUM SULFATE / D5W 1 GM/100 ML BAG IV SCH ×2 (00:54→02:54)
[2023-03-07] MEDS ORDERED: GLUCOSE 10 TAB/TUBE PO PRN ×2 (01:30→10:47)
[2023-03-07] MEDS ORDERED: GLUCOSE 40% GEL 15 GM TUBE PO PRN ×2 (01:30→10:47)
[2023-03-07] MEDS ORDERED: CARBOHYDRATES FOR HYPOGLYCEMIA PO PRN ×2 (01:30→10:47)
[2023-03-07] MEDS ORDERED: GLUCAGON FOR INJ 1 MG VIAL IM PRN (01:30)
[2023-03-07] MEDS ORDERED: DEXTROSE 50% 50 ML SYRINGE IV PRN (01:30)
[2023-03-07] MEDS: SODIUM CHLORIDE 0.9% 1,000 ML IV SCH (02:54)
--- NOTE | 2023-03-07 04:33 | Billing Data ---
Date of Service March 07, 2023 Coding Level of Care Code 34254 INT INP/OBS CARE
[2023-03-07] MEDS: NSS + 20MEQ KCL 20 MEQ/1,000 ML BAG IV SCH ×2 (04:41→16:53)
[2023-03-07 04:54] LABS: Basophils # (auto) 0.02 K/uL (0.00-0.20); Basophils % (auto) 0.2 %; Eosinophils # (auto) 0.31 K/uL (0.00-0.50); Eosinophils % (auto) 2.8 %; Hematocrit (blood only) 45.1 % (37.0-47.0); Hemoglobin 14.9 g/dl (12.0-16.0); Immature Granulocytes # (auto) 0.04 K/uL (0.01-0.20); Immature Granulocytes % (auto) 0.4 %; Lymphocytes # (auto) 2.88 K/uL (1.20-3.40); Lymphocytes % (auto) 26.4 %; Mean Corpuscular Hemoglobin 28.8 pg (25.0-34.0); Mean Corpuscular Volume 87.1 fL (80.0-100.0); Mean Platelet Volume 11.6 fL (9.4-12.4); Monocytes # (auto) 0.82 K/uL (0.11-0.59); Monocytes % (auto) 7.5 %; Neutrophils # (auto) 6.85 K/uL (1.40-6.50); Neutrophils % (auto) 62.7 %; Platelet Count 205 K/uL (130-400); RDW Coefficient of Variation 16.5 % (11.5-14.5); RDW Standard Deviation 52.6 fL (36.4-46.3); Red Blood Count 5.18 M/uL (4.20-5.40); White Blood Count 10.92 K/ul (4.8-10.8)
[2023-03-07] MEDS ORDERED: MAGNESIUM SULFATE / D5W 1 GM/100 ML BAG IV SCH (05:00)
[2023-03-07 05:18] LABS: Albumin Globulin Ratio 1.7 (0.9-2); Albumin Level 3.8 gm/dl (3.4-5.0); BUN Creatinine Ratio 14.4 (10-20); Bilirubin,Total 0.6 mg/dl (0.2-1.0); Calcium 8.1 mg/dl (8.6-10.3); Creatinine Clr Calc Pharmacy 43.1 ml/min; Est GFR (Non-African American) 59.5 ml/min; Globulin 2.2 gm/dl (2.5-4.0); Magnesium 2.4 mg/dl (1.7-2.4); Phosphorus 2.3 mg/dl (2.5-4.9); Potassium 3.2 mmol/L (3.5-5.1)
[2023-03-07 06:57] LABS: Estimated Average Glucose 154 mg/dl
[2023-03-07] MEDS: LEVOTHYROXINE SODIUM 75 MCG TABLET PO SCH (08:50)
[2023-03-07] MEDS: ANASTROZOLE 1 MG TAB PO SCH (08:51)
[2023-03-07] MEDS: CEROVITE ADV FORMULA TAB PO SCH (08:52)
[2023-03-07] MEDS: POTASSIUM CHLORIDE CRTAB 20 MEQ TABCR PO SCH ×2 (08:52→20:55)
[2023-03-07] MEDS: oxyBUTYnin chloride 5 MG TAB PO SCH (08:52)
[2023-03-07] MEDS ORDERED: APIXABAN 5 MG TABLET PO SCH (09:00)
[2023-03-07] MEDS ORDERED: LANTUS PER UNIT CHARGE SC SCH (09:00)
[2023-03-07] MEDS ORDERED: PANTOprazole 40 MG in SYRINGE 0 ML IV SCH (09:00)
[2023-03-07] MEDS ORDERED: FAMOTIDINE 20 MG in SYRINGE 3 ML IV SCH (09:00)
[2023-03-07] MEDS ORDERED: POTASSIUM CHLORIDE CRTAB 20 MEQ TABCR PO SCH (09:00)
[2023-03-07] MEDS ORDERED: INSULIN ASPART PER UNIT CHARGE SC SCH (09:00)
[2023-03-07] MEDS: INSULIN ASPART PER UNIT CHARGE SC SCH ×3 (13:37→20:50)
--- NOTE | 2023-03-07 13:57 | Hospitalist Progress Note ---
Date of Service March 07, 2023 Assessment & Plan (1) Chest pain: Plan: 82 F with past medical history of T2DM, CVA, DVT, hypothyroidism, urinary incontinence, breast cancer s/p double mastectomy, radiation, and GERD, who presents to the emergency from with chest pain + radiation to right shoulder, back. Admitted to the hospital for correction of electrolyte derangement, pain management. Trop with mild elevation likely from demand ischemia in setting of electrolyte abnormalities, dehydration, and known hypertrophic CM ECHO with preserved EF, no WMAs, with HCM but no LVOT CTA CHest neg for PE or PNA but with debris in esophagus and distal esophageal thickening, anterior chest fluid collection 7.2 x 2.0 cm post op seroma, and possible early fibrosis of lungs--> possible radiation effect? No pain on palpation but rather suspect odynophagia from possible radiation esophagitis or stricture as pain worsens with eating or drinking -start PPI IV, consult GI, make diet clears now and NPO after midnight for possible EGD -monitor on tele for arrhythmia (2) Odynophagia: Plan: as above plan for EGD tomorrow hopefully hold ELiquis in case of need for dilation (3) Hypokalemia: Plan: Hypokalemia/hypomagnesemia -Potassium 2.6, magnesium 0.8 on arrival Suspect due to malnutrition, diarrhea. -S/p repletion and now improved but K remains a bit low -give po KCl today -follow BMP, Mag in AM (4) Hypomagnesemia: Plan: above (5) Elevated troponin: Plan: demand ischemia in setting of asymmetric hypertrophy of septum on last ECHO serial trop peaked at 51 and back down,ECHO here similar to previous (6) Hypocalcemia: Plan: VIt D level from 12/2022 low at 20 replace with Vit D po once taking po again (7) Diabetes mellitus with stage 3b chronic kidney disease, with long-term current use of insulin: Plan: hold home metformin reduce Lantus due to hypoglycemia continue Novolog (8) Memory loss: Plan: Since October 2022. Started as result of CVA, retrograde amnesia. Managed on donepezil 10 mg nightly * Continue home donepezil (9) Urinary incontinence: Plan: -Chronic. Managed on oxybutynin 5 mg every morning. * Continue home oxybutynin (10) Cerebrovascular disease: Plan: History of CVA -Managed on aspirin. * Aspirin held in case of EGD -Chronic. Managed on rosuvastatin 10 mg nightly. * Continue home rosuvastatin (11) Anxiety: Plan: -Managed on sertraline 100 mg. Started since October. -Also on as needed lorazepam. However, patient reports not having used in months. -Patient continues to report depressed mood with no improvement since initiation of sertraline. -Patient also follows with psychotherapy and was scheduled for therapist visit tomorrow. -Patient reports apathy regarding . However, she denies suicidal ideation or intent. * Continue sertraline 100 mg. Would consider increasing dose to 150 mg or augmenting with atypical antidepressant like Wellbutrin or mirtazapine. * Holding lorazepam (12) Breast cancer: Plan: History of breast cancer -S/p double mastectomy. Was in remission for 16 years until 2 years ago had chest wall mass removed and underwent radiation * Continue home anastrozole 1 mg every morning (13) Hypothyroidism: Plan: -Chronic. Managed on levothyroxine 75 mcg. (14) Leukocytosis: Plan: has a h/o CLL Plan Dispo-continued stay Admission and Anticipated Discharge Date Admission Date: March 06, 2023 Subjective Pt reports ongoing pain in substernal region constant but much worse with eating or drinking any fluids. Has been going on now for 2 days after having a week of diarrhea. She reports she had radiation therapy to her chest wall 1-2 years ago after a chest wall mass of recurrent breast CA was removed. Had EGD in 06/2022 for anemia and had bleeding AVMs cauterized No further diarrhea since yesterday Discussed her care with GI Physical Exam Constitutional: WD/WN, vitals as above Eyes: PERRL, conjunctivae normal, anicteric sclerae ENMT: external ear and nose normal, oropharynx normal Neck: trachea midline, no thyromegaly Respiratory: normal respiratory effort, lungs clear to auscultation Cardiovascular: RRR, no murmur, no edema Chest (Breasts): Chest: normal inspection of chest Additional Comments: no TTP over chest wall Gastrointestinal (Abdomen): normal bowel sounds, soft, nontender, no hepatosplenomegaly Musculoskeletal: Extremities: extremities normal to inspection; no cyanosis and no clubbing Skin: no rashes, warm and dry Neurologic: moves all extremities and awake; no focal motor deficits Psychiatric: A+Ox3, euthymic affect Lymphatic: no lymphedema Results & Data Results & Data Vital Signs (Past 12 Hours) Vital Signs Pulse Pulse Resp BP BP Pulse Ox O2 Del Method 03/07/23 09:00 68 14 167/84 H 96 Nasal Cannula 03/07/23 10:00 76 16 156/80 H 95 Nasal Cannula 03/07/23 06:31 168/68 H 03/07/23 06:31 63 16 100 03/07/23 06:00 64 13 150/88 H 100 03/07/23 05:30 64 19 138/65 97 03/07/23 05:00 64 15 155/73 H 98 03/07/23 04:30 63 16 137/87 98 03/07/23 04:00 62 13 147/80 H 93 03/07/23 03:30 65 15 155/75 H 92 03/07/23 03:00 65 16 135/64 91 03/07/23 02:30 69 17 141/70 H 03/07/23 02:01 73 17 94 03/07/23 02:00 70 21 176/67 H 94 03/07/23 04:09 Nasal Cannula 03/07/23 04:09 65 16 147/80 H 99 Nasal Cannula O2 Flow Rate 03/07/23 09:00 2 03/07/23 10:00 2 03/07/23 06:31 03/07/23 06:31 03/07/23 06:00 03/07/23 05:30 03/07/23 05:00 03/07/23 04:30 03/07/23 04:00 03/07/23 03:30 03/07/23 03:00 03/07/23 02:30 03/07/23 02:01 03/07/23 02:00 03/07/23 04:09 2 03/07/23 04:09 2 Laboratory Results CBC, BMP, magnesium, TSH, troponin reviewed PG Care Time/CCT Total # of Minutes Spent Total Time Spent with Patient: Total time spent is greater than 50% in coordination of care (as documented) at patient's floor/unit and/or counseling patient: Coding Level of Care Code 80992 SUB INP/OBS CARE 3/50MIN Diagnoses Chest pain R07.9 Odynophagia R13.10 Hypokalemia E87.6 Hypomagnesemia E83.42 Elevated troponin R79.89 Hypocalcemia E83.51 Diabetes mellitus with stage 3b chronic kidney disease, with long-term current use of insulin E11.22; N18.32; Z79.4 Memory loss R41.3 Urinary incontinence R32 Cerebrovascular disease I67.9 Anxiety F41.9 Breast cancer C50.919 Hypothyroidism E03.9 Hypothyroidism type: unspecified Leukocytosis D72.829 (13) Hypothyroidism Hypothyroidism type: unspecified Qualified Code(s): E03.9 - Hypothyroidism, unspecified
--- NOTE | 2023-03-07 14:58 | XCELERA ---
[id number] \\[id number]
--- NOTE | 2023-03-07 16:11 | Electrocardiogram Report ---
Test Reason : Blood Pressure : / mmHG Vent. Rate : 081 BPM Atrial Rate : 081 BPM P-R Int : 178 ms QRS Dur : 074 ms QT Int : 546 ms P-R-T Axes : 013 -07 018 degrees QTc Int : 634 ms Normal sinus rhythm Inferior infarct , age undetermined Anterior infarct , age undetermined Abnormal ECG When compared with ECG of 03-NOV-2022 16:57, Premature supraventricular complexes are no longer Present Anterior infarct is now Present Inferior infarct is now Present Nonspecific T wave abnormality now evident in Inferior leads QT has lengthened Confirmed by Pradeep Sutton ([id number]) on 03/07/2023 4:10:35 PM Referred By: REFERRED SELF Confirmed By:Pradeep Sutton
--- NOTE | 2023-03-07 16:28 | Electrocardiogram Report ---
Test Reason : Blood Pressure : / mmHG Vent. Rate : 075 BPM Atrial Rate : 075 BPM P-R Int : 182 ms QRS Dur : 068 ms QT Int : 430 ms P-R-T Axes : -84 -11 033 degrees QTc Int : 480 ms Unusual P axis, possible ectopic atrial rhythm with Premature atrial complexes Inferior infarct (cited on or before 06-MAR-2023) Abnormal ECG When compared with ECG of 06-MAR-2023 17:45, (unconfirmed) Ectopic atrial rhythm has replaced Sinus rhythm Criteria for Anterior infarct are no longer Present Nonspecific T wave abnormality, improved in Inferior leads QT has shortened Confirmed by Pradeep Sutton ([id number]) on 03/07/2023 4:28:10 PM Referred By: REFERRED SELF Confirmed By:Pradeep Sutton
[2023-03-07] MEDS: SERTRALINE HCL 100 MG TABLET PO SCH (20:54)
[2023-03-07] MEDS: PANTOprazole 40 MG in SYRINGE 0 ML IV SCH (20:54)
[2023-03-07] MEDS: ROSUVASTATIN CALCIUM 10 MG TAB PO SCH (20:54)
[2023-03-07] MEDS: DONEPEZIL HCL 10 MG TAB PO SCH (20:55)
[2023-03-07] MEDS ORDERED: SUCRALFATE 1 GM/10 ML UDC PO SCH (21:00)
[2023-03-08] MEDS: NSS + 20MEQ KCL 20 MEQ/1,000 ML BAG IV SCH (05:29)
[2023-03-08 07:07] LABS: Basophils # (auto) 0.03 K/uL (0.00-0.20); Basophils % (auto) 0.3 %; Eosinophils # (auto) 0.38 K/uL (0.00-0.50); Eosinophils % (auto) 3.4 %; Hematocrit (blood only) 44.8 % (37.0-47.0); Hemoglobin 14.9 g/dl (12.0-16.0); Immature Granulocytes # (auto) 0.04 K/uL (0.01-0.20); Immature Granulocytes % (auto) 0.4 %; Lymphocytes # (auto) 1.79 K/uL (1.20-3.40); Lymphocytes % (auto) 15.9 %; Mean Corpuscular Hemoglobin 29.4 pg (25.0-34.0); Mean Corpuscular Hgb Conc 33.3 g/dL (32.0-36.0); Mean Corpuscular Volume 88.4 fL (80.0-100.0); Mean Platelet Volume 12.4 fL (9.4-12.4); Monocytes # (auto) 0.79 K/uL (0.11-0.59); Neutrophils # (auto) 8.22 K/uL (1.40-6.50); Platelet Count 199 K/uL (130-400); RDW Coefficient of Variation 16.7 % (11.5-14.5); Red Blood Count 5.07 M/uL (4.20-5.40); White Blood Count 11.25 K/ul (4.8-10.8)
[2023-03-08 07:36] LABS: Albumin Globulin Ratio 1.8 (0.9-2); Albumin Level 3.7 gm/dl (3.4-5.0); BUN Creatinine Ratio 9.4 (10-20); Bilirubin,Total 0.5 mg/dl (0.2-1.0); Calcium 8.1 mg/dl (8.6-10.3); Creatinine Clr Calc Pharmacy 45.7 ml/min; Est GFR (Non-African American) 63.8 ml/min; Globulin 2.1 gm/dl (2.5-4.0); Magnesium 1.8 mg/dl (1.7-2.4); Potassium 4.1 mmol/L (3.5-5.1); Total Protein 5.8 gm/dl (6.0-8.3)
[2023-03-08] MEDS: INSULIN ASPART PER UNIT CHARGE SC SCH ×4 (08:37→21:05)
[2023-03-08] MEDS: ANASTROZOLE 1 MG TAB PO SCH (08:52)
[2023-03-08] MEDS: CEROVITE ADV FORMULA TAB PO SCH (08:53)
[2023-03-08] MEDS: PANTOprazole 40 MG in SYRINGE 0 ML IV SCH ×2 (08:53→20:03)
[2023-03-08] MEDS: oxyBUTYnin chloride 5 MG TAB PO SCH (08:53)
[2023-03-08] MEDS: LANTUS PER UNIT CHARGE SC SCH (08:56)
[2023-03-08] MEDS: LEVOTHYROXINE SODIUM 75 MCG TABLET PO SCH (08:58)
--- NOTE | 2023-03-08 10:20 | Gastrointestinal Consultation ---
Date of Consultation March 08, 2023 Assessment & Plan (1) Odynophagia: (2) Chest pain: Plan Patient is a 82 y.o. female with a complex medical history admitted with non- cardiac chest pain and new onset of odynophagia. Diff dx: esophagitis vs infection vs ulcer vs varices (hx cirrhosis) vs mass vs stricture vs other. -NPO for now. -Continue Pantoprazole 40 mg IV BID. -EGD today with Dr. Tim for further evaluation. -Further recommendations to be made pending results of testing as ordered. Thank you for allowing us to participate in the care of this patient. If you have any questions or concerns, please do not hesitate to contact us. Supervising Physician Co-Signing Physician Notes Agree with SHANE Malloy as above Abd: Soft, NT, ND, +BS Continue current therapy and supportive care Proceed with EGD now. History of Present Illness Reason for Consultation: Odynophagia Requesting Physician: Dr. Ardon Attending Physician: Joann Ardon MD History of Present Illness Patient is a 82 y.o. female with a history of CLL, CKD, HLD, HTN, DM, and breast cancer known to our office for history of dysphagia and cirrhosis. She was last seen in the office by Leeroy Fernandez PA-C in July of this year. She was status post both EGD and colonoscopy at that time. The EGD demonstrated a medium-sized hiatus hernia and gastric AVM s/p APC. She states she was to have a follow up in our office recently but had to cancel due to illness. She was now admitted with chest pain that began Sunday evening. She reports the pain is sharp in the central chest, radiates into the upper abdomen and back. Pain is not worse with deep breathing. Pain is present at rest. She reports she is unable to eat or drink due to worsened pain with swallowing. No n/v, melena or hematochezia. S tates she did have diarrhea at the time of onset which was resolved with Imodium. She has undergone a ECG and echocardiogram to exclude any acute cardiac process. CT chest/abdomen/pelvis performed. Evidence of distal esophageal wall thickening noted. Liver panel normal. No biliary ductal dilation. She has been placed on NPO status and started on Pantoprazole 40 mg IV BID. Allergies Allergy/AdvReac Type Severity Reaction Status Date / Time adhesive Allergy Intermediate BLISTERS Verified 11/21/22 09:31 amitriptyline AdvReac Intermediate HALLUCINATI Verified 11/21/22 09:31 ONS atorvastatin AdvReac Intermediate JOINT PAIN Verified 11/21/22 09:31 cephalexin AdvReac Intermediate N/V Verified 11/21/22 09:31 codeine AdvReac Intermediate NAUSEA AND Verified 11/21/22 09:31 VOMITING doxycycline AdvReac Intermediate GI SYMPTOMS Verified 11/21/22 09:31 hydroxychloroquine AdvReac Intermediate Diarrhea Verified 11/21/22 09:31 [From Plaquenil] liraglutide AdvReac Intermediate GI UPSET Verified 11/21/22 09:31 phenol AdvReac Intermediate GI UPSET Verified 11/21/22 09:31 pioglitazone AdvReac Intermediate SEVERE Verified 11/21/22 09:31 FATIGUE tramadol AdvReac Intermediate N/V Verified 11/21/22 09:31 zoster vaccine live AdvReac Unknown Unknown Verified 11/21/22 09:31 [From Zostavax (PF)] Home Medications Medication Instructions Recorded Confirmed Type vit C 226 mg-vit E 90 mg-copper 1 cap PO QAM 09/04/18 03/06/23 History 0.8 mg-zinc oxide-lutein 5 mg capsule (PreserVision Lutein) aspirin 81 mg chewable tablet 81 mg PO QAM 01/21/19 03/06/23 History anastrozole 1 mg tablet 1 mg PO QAM 01/19/21 03/06/23 History apixaban 5 mg tablet (Eliquis) 5 mg PO BID 05/05/21 03/06/23 History Wheelchair (Powered) #1 ea 08/04/21 03/06/23 Rx alendronate 70 mg tablet 70 mg PO Q7D 08/26/21 03/06/23 History Wheelchair (Powered) (Power #1 ea 09/08/21 03/06/23 Rx Wheelchair) blood sugar diagnostic (OneTouch #300 ea 12/21/21 03/06/23 Rx Ultra Test strips) diaper,brief,adult,disposable #60 ea 05/24/22 03/06/23 Rx incontinence pad, liner, disp #60 ea 05/24/22 03/06/23 Rx (Underpads Regular) Wheeled Walker #1 ea 06/08/22 03/06/23 Rx levothyroxine 75 mcg tablet 75 mcg PO QAM 06/14/22 03/06/23 History insulin aspar prot-insulin aspart 22 unit subcut BID 08/25/22 03/06/23 History 100 unit/mL (70-30) subcutaneous pen (Novolog Mix 70-30FlexPen U-100) insulin detemir U-100 100 unit/mL 25 unit (0.25 mL) subcut QAM #30 mL 08/25/22 03/06/23 Rx (3 mL) subcutaneous pen (Levemir FlexTouch U-100 Insulin) pen needle, diabetic 32 gauge x #100 ea 10/30/22 03/06/23 Rx 32" (BD Pratima 2nd Gen Pen Needle) rosuvastatin 10 mg tablet 10 mg PO HS #90 tabs 12/28/22 03/06/23 Rx omeprazole 40 mg capsule,delayed 40 mg PO QAM #90 caps 02/19/23 03/06/23 Rx release hydrocodone 5 mg-acetaminophen 325 0.5 tab PO Q6H PRN pain #10 tabs 02/22/23 03/06/23 Rx mg tablet lorazepam 0.5 mg tablet (Ativan) 0.5 mg PO TID PRN Anxiety 02/22/23 03/06/23 H istory donepezil 10 mg tablet 10 mg PO HS 03/06/23 03/06/23 History metformin 500 mg tablet,extended 500 mg PO HS 03/06/23 03/06/23 History release 24 hr oxybutynin chloride 5 mg tablet 5 mg PO QAM 03/06/23 03/06/23 History sertraline 100 mg tablet 100 mg PO HS 03/06/23 03/06/23 History Patient History Medical History (Updated 03/08/23 @ 10:32 by Sumit Leslie MD) Acute CVA (cerebrovascular accident) 05/2022,brought to [place], "symptoms but nothing found on imaging"-still has left sided weakness and stuttering when speaking "if worked up" Acute exacerbation of chronic obstructive pulmonary disease (COPD) Aneurysm, cerebral, nonruptured LV4 aneurysm treated with stent/coil 2016 Per 01/30/21 Head CTA = No change in a 4 mm saccular aneurysm of the distal right middle cerebral artery and a 2 mm basilar artery aneurysm. Anxiety Asthma well controlled per pt > no inhalers Atrial aneurysm Atrial fib/flutter, transient Follows [facility] > no cardioversions Loop recorder in place - [employer]- placed 09/05/18 Atrial tachycardia Breast cancer DX in 2009> bilat mastectomy >no chemo Recently diagnosed with metastatic right breast carcinoma 08/13/20 Carotid artery stenosis Follows with [facility]. S/p CEA years ago Per 01/30/21 neck CTA- severe stenosis at origin of left vertebral artery. Occlusion of the proximal to mid right vertebral artery with distal reconstitution. Stable 5 mm outpouching of the proximal right internal carotid artery with possible associated short segment dissection, unchanged. Moderate atherosclerotic plaque with the major vessels of the neck Central stenosis of spinal canal Chronic kidney disease, stage 3a Chronic obstructive pulmonary disease Cirrhosis hx CKD (chronic kidney disease) CLL (chronic lymphocytic leukemia) hx Coronary artery calcification Based on calcified coronary arteries on CT Scan Abd/Pelvis 08/03/20 Deep vein thrombosis several yrs ago> left leg > caused from control pills Depression Diabetes mellitus type 2, uncontrolled Diabetic nephropathy Diabetic neuropathy Encounter for pre-operative examination Gastroesophageal reflux disease History of COVID-19 (~05/2021) jul or august 2021, pcr test [place], admitted w/stroke, tested while in hospital- found to be covid +=in hospital for 3 weeks for stroke and covid>resolved. History of CVA (cerebrovascular accident) Hx of sleep apnea waiting on new cpap; getting a new test 07/24/22 Hypertension Hypothyroidism EMILY (iron deficiency anemia) Left hemiparesis From stroke in November 2019>uses walker or wheelchair due to weakness Left ventricular outflow tract obstruction Lumbar radiculopathy Lumbar spinal stenosis Lumbar stenosis with neurogenic claudication Metastatic breast carcinoma b/l mastectomy about for initial breast cancer Nonalcoholic steatohepatitis PA (obstructive sleep apnea) Osteopenia Polycythemia Pseudobulbar affect Recurrent cancer of right breast (08/13/20) Initially diagnosed 2009- s/p bilateral mastectomy recurrence to chest wall s/p XRT 07/2020 Sensorineural hearing loss (SNHL) of both ears Stroke December 05, 2019 > [facility] > has short term memory loss as result > left side weakness TIA (transient ischemic attack) Jan 2021 TMJ syndrome "don't have it all them time, just clicks, no locking" Urinary frequency Urinary incontinence Vertebral artery stenosis Per 01/30/21 neck CTA- severe stenosis at origin of left vertebral artery. Occlusion of the proximal to mid right vertebral artery with distal reconstitution. Stable 5 mm outpouching of the proximal right internal carotid artery with possible associated short segment dissection, unchanged. Moderate atherosclerotic plaque with the major vessels of the neck Surgical History H/O varicose vein ligation and stripping left leg History of appendectomy History of brain surgery Cerebral angiogram and stent-assisted coil embolization of the It PICA aneurysm. 12/22/2015 > follows with [facility] History of breast lump/mass excision History of carotid endarterectomy Right side per records Over 6 yrs ago > [facility] History of cataract surgery Right: July 2012 Left: August 2012 History of colonoscopy History of hysterectomy Ovaries intact History of mastectomy bilateral September 2009 History of parathyroid surgery Excision of benign neoplasm History of shoulder surgery Right shoulder arthroscopic labral debridement, subacromial decompression, and acromioplasty excision distal clavicle, biceps tenotomy. 06/15/2014 History of total knee replacement left 01/11/2012 Hx of excision of mass from chest wall > right side > radiation now complete Hx of tonsillectomy Port-A-Cath in place (02/22/22) Insertion Access Port with Fluoroscopy to left internal jugular vein (Left) - Joseph Ingram DO, FACS Family History Grandmother No problems noted. Father , in his 50s of lung cancer Lung disease Lung cancer Mother , in her 70s of cancer Cancer Hypertension Unknown , Niece at 37 Colon cancer Son Anxiety Depression Kidney stones Alcohol abuse Grandmother (Maternal) Lung cancer Sister COPD (chronic obstructive pulmonary disease) Son MVA (motor vehicle accident) Son Rheumatic fever Daughter Medical history unknown Denies family history of Ovarian cancer Prostate cancer Myocardial infarction Breast cancer Bleeding disorder Social History Smoking Status: Current some day smoker Tobacco Type: Cigarettes Age Started Using Tobacco: 16; Cigarettes Per Day: 1 pack every 2-3 days; Second Hand Exposure: Yes; Do You Dip or Chew Tobacco: No; Hx Alcohol Use: No Hx Substance Use: No Preferred Language: Slovak Communication Ability: Effective Communication Ability Comment: Expressive Aphasia Visual Impairment: No Limitations Hearing Ability: Normal Instruction Librarian Required: No Beliefs That Will Affect Care: None marital status: Current Living Situation: Spouse current occupational status: retired 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 [employer] How many Children do You have: 4 How many Children do You have Comment: Pregnancies:6 Children:4 :1 Feels Safe at Home: Yes Childhood Exposure to Second-Hand Smoke: Yes Diet: regular Diet Comment: Regular caffeine: Yes during the past year weight has: remained stable Dental Care, Regularly: No Physical Activity Frequency: 3-4 Times per Week Physical Activity Frequency Comment: walking Seatbelt Use: never Assistive Devices: CPAP and Walker Review of Systems Constitutional: + fatigue; no fever and no chills Respiratory: as per Subjective / HPI Cardiovascular: as per Subjective / HPI Gastrointestinal: as per Subjective / HPI Physical Exam Constitutional: WD/WN, vitals as above Neck: normal visual inspection Respiratory: normal respiratory effort, lungs clear to auscultation Cardiovascular: Rate/Rhythm: regular rate and regular rhythm Chest (Breasts): Additional Comments: tender to palpation of central chest Gastrointestinal (Abdomen): normal bowel sounds, soft, nontender, no hepatosplenomegaly Psychiatric: A+Ox3, euthymic affect Results & Data Vital Signs (Past 12 Hours) Vital Signs Temp Pulse Pulse Pulse Resp BP Pulse Ox 03/08/23 07:32 36.8 C 65 20 190/75 H 96 03/08/23 07:34 72 03/08/23 03:27 36.9 C 62 20 180/76 H 98 03/08/23 01:16 69 03/07/23 22:20 36.3 C L 66 16 164/70 H 96 03/07/23 22:30 O2 Del Method O2 Flow Rate 03/08/23 07:32 Nasal Cannula 2 03/08/23 07:34 03/08/23 03:27 Nasal Cannula 2 03/08/23 01:16 03/07/23 22:20 Nasal Cannula 2 03/07/23 22:30 Nasal Cannula 2 Diagnostic Findings Laboratory Results WBC 11.25 K/ul (4.8-10.8) H 03/08/23 06:01 RBC 5.07 M/uL (4.20-5.40) 03/08/23 06:01 Hgb 14.9 g/dl (12.0-16.0) 03/08/23 06:01 Hct 44.8 % (37.0-47.0) 03/08/23 06:01 MCV 88.4 fL (80.0-100.0) 03/08/23 06:01 MCH 29.4 pg (25.0-34.0) 03/08/23 06:01 MCHC 33.3 g/dL (32.0-36.0) 03/08/23 06:01 RDW Std Deviation 54.0 fL (36.4-46.3) H 03/08/23 06:01 RDW Coeff of [place] 16.7 % (11.5-14.5) H 03/08/23 06:01 Plt Count 199 K/uL (130-400) 03/08/23 06:01 MPV 12.4 fL (9.4-12.4) 03/08/23 06:01 Immature Gran % (Auto) 0.4 % 03/08/23 06:01 Neut % (Auto) 73.0 % 03/08/23 06:01 Lymph % (Auto) 15.9 % 03/08/23 06:01 [place] % (Auto) 7.0 % 03/08/23 06:01 Eos % (Auto) 3.4 % 03/08/23 06:01 Baso % (Auto) 0.3 % 03/08/23 06:01 Neut # (Auto) 8.22 K/uL (1.40-6.50) H 03/08/23 06:01 Lymph # (Auto) 1.79 K/uL (1.20-3.40) 03/08/23 06:01 [place] # (Auto) 0.79 K/uL (0.11-0.59) H 03/08/23 06:01 Eos # (Auto) 0.38 K/uL (0.00-0.50) 03/08/23 06:01 Baso # (Auto) 0.03 K/uL (0.00-0.20) 03/08/23 06:01 Immature Gran # (Auto) 0.04 K/uL (0.01-0.20) 03/08/23 06:01 Absolute Nucleated RBC 0.02 K/uL (0.00-0.12) 03/06/23 18:00 Nucleated RBC % (auto) 0.1 % 03/06/23 18:00 PT 11.7 Seconds (9.0-12.0) 03/06/23 18:00 INR 1.1 (0.9-1.1) 03/06/23 18:00 Sodium 143 mmol/L (136-145) 03/08/23 06:01 Potassium 4.1 mmol/L (3.5-5.1) D 03/08/23 06:01 Chloride 111 mmol/L (98-107) H 03/08/23 06:01 Carbon Dioxide 26 mmol/L (21-32) 03/08/23 06:01 Anion Gap 6 (3-11) 03/08/23 06:01 BUN 8 mg/dl (6-23) 03/08/23 06:01 Creatinine 0.85 mg/dl (0.6-1.2) 03/08/23 06:01 Est Cr Clr Drug Dosing 45.7 ml/min 03/08/23 06:01 Est GFR ( Amer) 74.0 ml/min 03/08/23 06:01 Est GFR (Non-Af Amer) 63.8 ml/min 03/08/23 06:01 BUN/Creatinine Ratio 9.4 (10-20) L 03/08/23 06:01 Glucose 114 mg/dl (70-99(Fasting)) H 03/08/23 06:01 POC Glucose 122 mg/dl (70-99) H 03/07/23 20:45 Estimat Average Glucose 154 mg/dl 03/07/23 04:38 Hemoglobin A1c 7.0 % (4.5-5.6) H 03/07/23 04:38 Calcium 8.1 mg/dl (8.6-10.3) L 03/08/23 06:01 Phosphorus 2.0 mg/dl (2.5-4.9) L 03/08/23 06:01 Magnesium 1.8 mg/dl (1.7-2.4) 03/08/23 06:01 Total Bilirubin 0.5 mg/dl (0.2-1.0) 03/08/23 06:01 AST 22 U/L (13-39) 03/08/23 06:01 ALT 9 U/L (7-52) 03/08/23 06:01 Alkaline Phosphatase 56 U/L (34-104) 03/08/23 06:01 Troponin I High Sens 14.3 pg/ml (0-14) H D 03/07/23 10:53 Total Protein 5.8 gm/dl (6.0-8.3) L 03/08/23 06:01 Albumin 3.7 gm/dl (3.4-5.0) 03/08/23 06:01 Globulin 2.1 gm/dl (2.5-4.0) L 03/08/23 06:01 Albumin/Globulin Ratio 1.8 (0.9-2) 03/08/23 06:01 Lipase 12 U/L (11-82) 03/06/23 18:00 TSH 7.955 uIu/ml (0.300-4.500) H 03/06/23 18:00 Free T4 0.84 ng/dl (0.61-1.60) 03/06/23 18:00 Adenovirus (PCR) Not Detected (NotDetected) 03/06/23 19:39 B. pertussis DNA (PCR) Not Detected (NotDetected) 03/06/23 19:39 B.parapertussis DNA PCR Not Detected (NotDetected) 03/06/23 19:39 C. pneumoniae DNA (PCR) Not Detected (NotDetected) 03/06/23 19:39 Coronavirus OC43 (PCR) Not Detected (NotDetected) 03/06/23 19:39 Coronavirus HKU1 (PCR) Not Detected (NotDetected) 03/06/23 19:39 Coronavirus 229E (PCR) Not Detected (NotDetected) 03/06/23 19:39 SARS-CoV-2 (PCR) Not Detected (NotDetected) 03/06/23 19:39 Coronavirus NL63 (PCR) Not Detected (NotDetected) 03/06/23 19:39 Human Metapneumovir PCR Not Detected (NotDetected) 03/06/23 19:39 Influenza Type A (PCR) Not Detected (NotDetected) 03/06/23 19:39 Influenza Type B (PCR) Not Detected (NotDetected) 03/06/23 19:39 M. pneumoniae (PCR) Not Detected (NotDetected) 03/06/23 19:39 Parainfluenza 1 (PCR) Not Detected (NotDetected) 03/06/23 19:39 Parainfluenza 2 (PCR) Not Detected (NotDetected) 03/06/23 19:39 Parainfluenza 3 (PCR) Not Detected (NotDetected) 03/06/23 19:39 Parainfluenza 4 (PCR) Not Detected (NotDetected) 03/06/23 19:39 RSV (PCR) Not Detected (NotDetected) 03/06/23 19:39 Entero/Rhino (PCR) Not Detected (NotDetected) 03/06/23 19:39 Impressions Chest CTA 03/06/23 18:12 Exam(s): CTA CHEST W/WO Contrast IV Amt: 106ml EXAM: CT Angiography Chest With Intravenous Contrast CLINICAL HISTORY: Reason for exam: cp into back. TECHNIQUE: Axial computed tomographic angiography images of the chest with intravenous contrast. CTDI is 25.84 mGy and DLP is 808.58 mGy-cm. Automated exposure control was utilized for the study. A dose lowering technique was utilized adhering to the principles of ALARA. MIP reconstructed images were created and reviewed. CONTRAST: Patient received 106ml of IV contrast COMPARISON: None. FINDINGS: Pulmonary arteries: Unremarkable. No pulmonary embolism. Normal enhancement of the pulmonary arteries. Aorta: Calcified atherosclerotic disease throughout the aorta with no aneurysm or dissection. Lungs: The lungs are underexpanded with vascular crowding. There is mild posterior dependent atelectasis. There is scattered interstitial prominence more so in the subpleural region with reticulonodular pattern suggestive of chronic interstitial lung disease versus early fibrosis. No mass. Pleural space: Unremarkable. No significant effusion. No pneumothorax. Heart: Unremarkable. No significant pericardial effusion. No evidence of RV dysfunction. Normal cardiac size with coronary artery calcifications. Mediastinum: Mild thickening of the wall of the distal esophagus with trace debris within the esophagus which may indicate reflux. Bones/joints: Degenerative disease of the spine with diffuse osteopenia. Degenerative disease of bilateral shoulders. No acute fracture. No dislocation. Soft tissues: Unremarkable. Lymph nodes: Unremarkable. No enlarged lymph nodes. Gallbladder and bile ducts: Tiny gallstones. Remainder of the visualized upper abdomen unremarkable. Stomach and bowel: Upper abdominal structures reveal incomplete distention of the stomach with prominence of the wall diffusely, cannot exclude gastritis. Intraperitoneal space: There is fluid collection along the right anterior chest measuring approximately 7.2 x 2.0 cm with a well delineated margins suggestive of postoperative seroma. Tubes, lines and devices: There is a left-sided chest port in place. IMPRESSION: 1. No pulmonary embolus or aortic dissection. 2. Decreased inspiration with vascular crowding and bilateral posterior dependent atelectasis. Possible underlying chronic interstitial lung disease versus early fibrosis. 3. No focal infiltrate or pleural effusion. No pneumothorax. 4. Tiny gallstones. 5. Cannot exclude gastritis, clinical correlation recommended. 6. Possible reflux with distal esophagitis. If indicated, these findings may be further assessed with upper endoscopy nonacute setting. 7. Right anterior chest postoperative seroma with infectious process not excluded. If indicated, this can be further assessed with ultrasound. Electronically signed by: Court Singh MD 03/06/23 20:35 PM PG Care Time/CCT Total # of Minutes Spent Total Time Spent with Patient: Total time spent is greater than 50% in coordination of care (as documented) at patient's floor/unit and/or counseling patient: Coding Level of Care Code 97951 INT INP/OBS CARE 3/75MIN Diagnoses Odynophagia R13.10 Chest pain R07.9
--- NOTE | 2023-03-08 10:30 | Anesthesiology Consultation ---
Date of Service March 08, 2023 Assessment & Plan (1) Encounter for pre-operative examination: Chart Review Chart Review: Acceptable Risk for Surgery, Patient NOT seen in Pre Admission Testing and balance staff inspector initiated Consults Requested none Proposed Anesthesia Anesthesia Type: MAC History Surgery Operation Date: 03/08/23 17:45 Proposed Procedures p Esophagogastroduodenoscopy Dr Tim - Nick Posada Case, DO Height/Weight Height: 4 ft 11 in Weight: 76.9 kg Allergies Allergy/AdvReac Type Severity Reaction Status Date / Time adhesive Allergy Intermediate BLISTERS Verified 11/21/22 09:31 amitriptyline AdvReac Intermediate HALLUCINATI Verified 11/21/22 09:31 ONS atorvastatin AdvReac Intermediate JOINT PAIN Verified 11/21/22 09:31 cephalexin AdvReac Intermediate N/V Verified 11/21/22 09:31 codeine AdvReac Intermediate NAUSEA AND Verified 11/21/22 09:31 VOMITING doxycycline AdvReac Intermediate GI SYMPTOMS Verified 11/21/22 09:31 hydroxychloroquine AdvReac Intermediate Diarrhea Verified 11/21/22 09:31 [From Plaquenil] liraglutide AdvReac Intermediate GI UPSET Verified 11/21/22 09:31 phenol AdvReac Intermediate GI UPSET Verified 11/21/22 09:31 pioglitazone AdvReac Intermediate SEVERE Verified 11/21/22 09:31 FATIGUE tramadol AdvReac Intermediate N/V Verified 11/21/22 09:31 zoster vaccine live AdvReac Unknown Unknown Verified 11/21/22 09:31 [From Zostavax (PF)] Medications Home Medications Medication Instructions Recorded Confirmed Last Taken vit C 226 mg-vit E 90 mg-copper 1 cap PO QAM 09/04/18 03/06/23 03/05/23 0.8 mg-zinc oxide-lutein 5 mg capsule (PreserVision Lutein) aspirin 81 mg chewable tablet 81 mg PO QAM 01/21/19 03/06/23 03/05/23 anastrozole 1 mg tablet 1 mg PO QAM 01/19/21 03/06/23 03/05/23 apixaban 5 mg tablet (Eliquis) 5 mg PO BID 05/05/21 03/06/23 03/05/23 Wheelchair (Powered) #1 ea 08/04/21 03/06/23 Unknown alendronate 70 mg tablet 70 mg PO Q7D 08/26/21 03/06/23 02/28/23 Wheelchair (Powered) (Power #1 ea 09/08/21 03/06/23 Unknown Wheelchair) blood sugar diagnostic (OneTouch #300 ea 12/21/21 03/06/23 Unknown Ultra Test strips) diaper,brief,adult,disposable #60 ea 05/24/22 03/06/23 Unknown incontinence pad, liner, disp #60 ea 05/24/22 03/06/23 Unknown (Underpads Regular) Wheeled Walker #1 ea 06/08/22 03/06/23 Unknown levothyroxine 75 mcg tablet 75 mcg PO QAM 06/14/22 03/06/23 03/05/23 insulin aspar prot-insulin aspart 22 unit subcut BID 08/25/22 03/06/23 03/05/23 100 unit/mL (70-30) subcutaneous pen (Novolog Mix 70-30FlexPen U-100) insulin detemir U-100 100 unit/mL 25 unit (0.25 mL) subcut QAM #30 mL 08/25/22 03/06/23 03/05/23 (3 mL) subcutaneous pen (Levemir FlexTouch U-100 Insulin) pen needle, diabetic 32 gauge x #100 ea 10/30/22 03/06/23 Unknown " (BD Pratima 2nd Gen Pen Needle) rosuvastatin 10 mg tablet 10 mg PO HS #90 tabs 12/28/22 03/06/23 03/05/23 omeprazole 40 mg capsule,delayed 40 mg PO QAM #90 caps 02/19/23 03/06/23 03/05/23 release hydrocodone 5 mg-acetaminophen 325 0.5 tab PO Q6H PRN pain #10 tabs 02/22/23 03/06/23 03/01/23 mg tablet lorazepam 0.5 mg tablet (Ativan) 0.5 mg PO TID PRN Anxiety 02/22/23 03/06/23 Unknown donepezil 10 mg tablet 10 mg PO HS 03/06/23 03/06/23 03/05/23 metformin 500 mg tablet,extended 500 mg PO HS 03/06/23 03/06/23 03/05/23 release 24 hr oxybutynin chloride 5 mg tablet 5 mg PO QAM 03/06/23 03/06/23 03/02/23 sertraline 100 mg tablet 100 mg PO HS 03/06/23 03/06/23 03/05/23 Active Medications Generic Name Dose Route Start Last Admin Trade Name Melissa PRN Reason Stop Dose Admin Anastrozole 1 mg 03/07/23 09:00 03/08/23 08:52 Anastrozole 1 Mg Tab PO 04/06/23 08:59 1 mg QAM ALISSA Administration Apixaban 5 mg 03/07/23 09:00 03/07/23 08:51 Apixaban 5 Mg Tablet PO 04/06/23 08:59 5 mg BID ALISSA Administration Donepezil HCl 10 mg 03/07/23 21:00 03/07/23 20:55 Donepezil Hcl 10 Mg Tab PO 04/06/23 20:59 10 mg HS ALISSA Administration Potassium Chloride/Sodium Chloride 20 meq in 1,000 mls @ 70 mls/hr 03/07/23 04:30 03/08/23 05:29 Normal Saline W/20 Meq Kcl IV 04/06/23 04:29 100 mls/hr .[id number] ALISSA Administration Protocol Pantoprazole Sodium 40 mg/ 10 mls @ 5 mls/min 03/07/23 21:00 03/08/23 08:53 Syringe IV 04/06/23 20:59 5 mls/min BID ALISSA Administration Insulin Aspart 0 units 03/07/23 11:30 03/08/23 08:37 Insulin Aspart Per Unit Charge SC 04/06/23 11:29 Not Given ACHS [facility] Insulin Glargine 10 units 03/08/23 09:00 03/08/23 08:56 Lantus Per Unit Charge SC 04/07/23 08:59 5 units QAM ALISSA Administration Levothyroxine Sodium 75 mcg 03/07/23 06:30 03/08/23 08:58 Levothyroxine Sodium 75 Mcg Tablet PO 04/06/23 06:29 Not Given DAILYBB ALISSA Multivitamins/Minerals 1 tab 03/07/23 09:00 03/08/23 08:53 Cerovite Adv Formula Tab PO 04/06/23 08:59 1 tab QAM ALISSA Administration Oxybutynin Chloride 5 mg 03/07/23 09:00 03/08/23 08:53 Oxybutynin Chloride 5 Mg Tab PO 04/06/23 08:59 5 mg QAM ALISSA Administration Rosuvastatin Calcium 10 mg 03/07/23 21:00 03/07/23 20:54 Rosuvastatin Calcium 10 Mg Tab PO 04/06/23 20:59 10 mg HS ALISSA Administration Sertraline HCl 100 mg 03/07/23 21:00 03/07/23 20:54 Sertraline Hcl 100 Mg Tablet PO 04/06/23 20:59 100 mg HS ALISSA Administration Past Medical History Medical History (Updated 03/08/23 @ 10:32 by Sumit Leslie MD) Acute CVA (cerebrovascular accident) 05/2022,brought to [place], "symptoms but nothing found on imaging"-still has left sided weakness and stuttering when speaking "if worked up" Acute exacerbation of chronic obstructive pulmonary disease (COPD) Aneurysm, cerebral, nonruptured LV4 aneurysm treated with stent/coil 2016 Per 01/30/21 Head CTA = No change in a 4 mm saccular aneurysm of the distal right middle cerebral artery and a 2 mm basilar artery aneurysm. Anxiety Asthma well controlled per pt > no inhalers Atrial aneurysm Atrial fib/flutter, transient Follows [facility] > no cardioversions Loop recorder in place - [employer]- placed 09/05/18 Atrial tachycardia Breast cancer DX in 2009> bilat mastectomy >no chemo Recently diagnosed with metastatic right breast carcinoma 08/13/20 Carotid artery stenosis Follows with [facility]. S/p CEA years ago Per 01/30/21 neck CTA- severe stenosis at origin of left vertebral artery. Occlusion of the proximal to mid right vertebral artery with distal reconstitution. Stable 5 mm outpouching of the proximal right internal carotid artery with possible associated short segment dissection, unchanged. Moderate atherosclerotic plaque with the major vessels of the neck Central stenosis of spinal canal Chronic kidney disease, stage 3a Chronic obstructive pulmonary disease Cirrhosis hx CKD (chronic kidney disease) CLL (chronic lymphocytic leukemia) hx Coronary artery calcification Based on calcified coronary arteries on CT Scan Abd/Pelvis 08/03/20 Deep vein thrombosis several yrs ago> left leg > caused from control pills Depression Diabetes mellitus type 2, uncontrolled Diabetic nephropathy Diabetic neuropathy Encounter for pre-operative examination Gastroesophageal reflux disease History of COVID-19 (~05/2021) jul or august 2021, pcr test mn, admitted w/stroke, tested while in hospital- found to be covid +=in hospital for 3 weeks for stroke and covid>resolved. History of CVA (cerebrovascular accident) Hx of sleep apnea waiting on new cpap; getting a new test 07/24/22 Hypertension Hypothyroidism EMILY (iron deficiency anemia) Left hemiparesis From stroke in November 2019>uses walker or wheelchair due to weakness Left ventricular outflow tract obstruction Lumbar radiculopathy Lumbar spinal stenosis Lumbar stenosis with neurogenic claudication Metastatic breast carcinoma b/l mastectomy about for initial breast cancer Nonalcoholic steatohepatitis PA (obstructive sleep apnea) Osteopenia Polycythemia Pseudobulbar affect Recurrent cancer of right breast (08/13/20) Initially diagnosed 2009- s/p bilateral mastectomy recurrence to chest wall s/p XRT 07/2020 Sensorineural hearing loss (SNHL) of both ears Stroke December 05, 2019 > [facility] > has short term memory loss as result > left side weakness TIA (transient ischemic attack) Jan 2021 TMJ syndrome "don't have it all them time, just clicks, no locking" Urinary frequency Urinary incontinence Vertebral artery stenosis Per 01/30/21 neck CTA- severe stenosis at origin of left vertebral artery. Occlusion of the proximal to mid right vertebral artery with distal reconstitution. Stable 5 mm outpouching of the proximal right internal carotid artery with possible associated short segment dissection, unchanged. Moderate atherosclerotic plaque with the major vessels of the neck Past Family History Family History Grandmother No problems noted. Father , in his 50s of lung cancer Lung disease Lung cancer Mother , in her 70s of cancer Cancer Hypertension Unknown , Niece at 37 Colon cancer Son Anxiety Depression Kidney stones Alcohol abuse Grandmother (Maternal) Lung cancer Sister COPD (chronic obstructive pulmonary disease) Son MVA (motor vehicle accident) Son Rheumatic fever Daughter Medical history unknown Denies family history of Ovarian cancer Prostate cancer Myocardial infarction Breast cancer Bleeding disorder Past Surgical History Surgical History H/O varicose vein ligation and stripping left leg History of appendectomy History of brain surgery Cerebral angiogram and stent-assisted coil embolization of the It PICA aneurysm. 12/22/2015 > follows with [facility] History of breast lump/mass excision History of carotid endarterectomy Right side per records Over 6 yrs ago > [facility] History of cataract surgery Right: July 2012 Left: August 2012 History of colonoscopy History of hysterectomy Ovaries intact History of mastectomy bilateral September 2009 History of parathyroid surgery Excision of benign neoplasm History of shoulder surgery Right shoulder arthroscopic labral debridement, subacromial decompression, and acromioplasty excision distal clavicle, biceps tenotomy. 06/15/2014 History of total knee replacement left 01/11/2012 Hx of excision of mass from chest wall > right side > radiation now complete Hx of tonsillectomy Port-A-Cath in place (02/22/22) Insertion Access Port with Fluoroscopy to left internal jugular vein (Left) - Joseph Ingram, , FACS Social History Smoking Status: Current some day smoker tobacco type: cigarettes Smoking cigarettes per day: 1 pack every 2-3 days Do You Dip or Chew Tobacco: No Hx Alcohol Use: No Alcohol type: beer and other alcohol intake frequency: other Hx Substance Use: No substance use type: does not use Physical Exam Vital Signs Last Vital Signs Temp 36.8 C 03/08/23 07:32 Pulse 72 03/08/23 07:34 Resp 20 03/08/23 07:32 BP 190/75 H 03/08/23 07:32 Pulse Ox 96 03/08/23 07:32 O2 Del Method Nasal Cannula 03/08/23 07:32 O2 Flow Rate 2 03/08/23 07:32 Testing Laboratory Results 03/08/23 06:01 03/08/23 06:01 PT 11.7 Seconds (9.0-12.0) 03/06/23 18:00 INR 1.1 (0.9-1.1) 03/06/23 18:00 Hemoglobin A1c 7.0 % (4.5-5.6) H 03/07/23 04:38 Electrocardiogram Date: 03/07/23 Test Reason : Blood Pressure : / mmHG Vent. Rate : 075 BPM Atrial Rate : 075 BPM P-R Int : 182 ms QRS Dur : 068 ms QT Int : 430 ms P-R-T Axes : -84 -11 033 degrees QTc Int : 480 ms Unusual P axis, possible ectopic atrial rhythm with Premature atrial complexes Inferior infarct (cited on or before 06-MAR-2023) Abnormal ECG When compared with ECG of 06-MAR-2023 17:45, (unconfirmed) Ectopic atrial rhythm has replaced Sinus rhythm Criteria for Anterior infarct are no longer Present Nonspecific T wave abnormality, improved in Inferior leads QT has shortened Confirmed by Pradeep Sutton ([id number]) on 03/07/2023 4:28:10 PM Chest X-Ray Date: 11/05/22 XR chest 1V portable CLINICAL HISTORY: serial exam, AHRF TECHNIQUE: Single frontal radiograph of the chest was obtained. Comparison: Comparison is made to chest radiograph 11/03/2022 FINDINGS: A port catheter is seen. Loop recorder is seen. Calcified aortic knob is seen. The lungs are clear. No evidence of pleural effusion or pneumothorax. IMPRESSION: No acute chest disease. Echocardiogram Date: 03/07/23 EF: 65-70 LV Function: normal RWMA: + none Other Findings: + LVH (moderate, asymmetric)
[2023-03-08] MEDS ORDERED: PROPOFOL IV EMULSION 10 MG/ML 20 ML VIAL IV ONE (15:29)
[2023-03-08] MEDS ORDERED: LIDOCAINE 2% 2 ML VIAL/AMP(20MG/ML) INFIL ONE (15:29)
[2023-03-08] MEDS ORDERED: BENZOCAINE/TETRACAIN/BUTAM 50 APPLN/5 GM CAN EXT ONE (15:50)
--- NOTE | 2023-03-08 16:24 | GI REPORT ---
Patient Name: Sharon Ochoa Procedure Date: 03/08/2023 3:35 PM Date of : 1940 Admit Type: Inpatient Age: 82 Gender: Female Attending MD: Nick Tim DO, Procedure: Upper GI endoscopy Providers: Nick Tim DO Referring MD: Joann Ardon MD Indications: Odynophagia, Chest pain (non cardiac) Medicines: Monitored Anesthesia Care Complications: No immediate complications. Estimated Blood Loss: Estimated blood loss: none. Procedure: Pre-Anesthesia Assessment: - Prior to the procedure, a History and Physical was performed, and patient medications and allergies were reviewed. The patient's tolerance of previous anesthesia was also reviewed. The risks and benefits of the procedure and the sedation options and risks were discussed with the patient. All questions were answered, and informed consent was obtained. Prior Anticoagulants: The patient has taken Eliquis (apixaban), last dose was 1 day prior to procedure. ASA Grade Assessment: IV - A patient with severe systemic disease that is a constant threat to life. After reviewing the risks and benefits, the patient was deemed in satisfactory condition to undergo the procedure. After obtaining informed consent, the endoscope was passed under direct vision. Throughout the procedure, the patient's blood pressure, pulse, and oxygen saturations were monitored continuously. The Endoscope was introduced through the mouth, and advanced to the second part of duodenum. The upper GI endoscopy was accomplished without difficulty. The patient tolerated the procedure well. Findings: Moderately severe esophagitis with bleeding was found. Cells for cytology were obtained by brushing. A small hiatal hernia was present. The examined duodenum was normal. Impression: - Moderately severe acute esophagitis with bleeding. Cells for cytology obtained. - Small hiatal hernia. - Normal examined duodenum. Recommendation: - Return patient to hospital thrasher for ongoing care. - Advance diet as tolerated. - Continue present medications. - Await pathology results with brushings for HSV, CMV and [place]. Nick Tim DO 03/08/2023 4:23:37 PM This report has been signed electronically. Note Initiated On: 03/08/2023 3:35 PM Number of Addenda: 0 I attest to the content of the Intraoperative Record and orders documented therein, exceptions below {[id number]}
--- NOTE | 2023-03-08 16:46 | Anesthesiology Progress Note ---
Date of Service March 08, 2023 Anesthesia Post Procedure Vital Signs Vital Signs: Temp Pulse Pulse Pulse Resp BP Pulse Ox 03/08/23 16:40 68 20 161/80 H 93 03/08/23 16:25 80 16 189/91 H 94 03/08/23 15:49 75 03/08/23 15:12 36.7 C 72 20 181/79 H 90 03/08/23 11:24 36.7 C 74 18 167/81 H 93 03/08/23 07:32 36.8 C 65 20 190/75 H 96 03/08/23 07:34 72 03/08/23 03:27 36.9 C 62 20 180/76 H 98 03/07/23 22:02 68 03/08/23 01:16 69 03/07/23 22:20 36.3 C L 66 16 164/70 H 96 03/07/23 22:30 03/07/23 21:14 69 16 198/101 H 94 O2 Del Method O2 Flow Rate 03/08/23 16:40 Room Air 03/08/23 16:25 Room Air 03/08/23 15:49 03/08/23 15:12 Room Air 03/08/23 11:24 Nasal Cannula 2 03/08/23 07:32 Nasal Cannula 2 03/08/23 07:34 03/08/23 03:27 Nasal Cannula 2 03/07/23 22:02 03/08/23 01:16 03/07/23 22:20 Nasal Cannula 2 03/07/23 22:30 Nasal Cannula 2 03/07/23 21:14 Nasal Cannula 1 Pain Intensity Abdomen: Pain Intensity: 6 Transfer of Care Handoff Completed per policy Notes Mental Status: alert / awake / arousable Patient Amnestic to Procedure: Yes Nausea / Vomiting: adequately controlled Pain: adequately controlled Airway Patency, RR, SpO2: stable & adequate BP & HR: stable & adequate Hydration State: stable & adequate Anesthetic Complications: no major complications apparent and Pt Satisfied with anesthetic care
[2023-03-08] MEDS: HEPARIN 100 UNIT/ML 5ML FLUSH FLUSH PRN (16:47)
--- NOTE | 2023-03-08 18:19 | Hospitalist Progress Note ---
Date of Service March 08, 2023 Assessment & Plan (1) Chest pain: Plan: 82 F with past medical history of T2DM, CVA, DVT, hypothyroidism, urinary incontinence, breast cancer s/p double mastectomy, radiation, and GERD, who presents to the emergency from with chest pain + radiation to right shoulder, back. Admitted to the hospital for correction of severe electrolyte derangement, chest pain eval and management. Trop with mild elevation likely from demand ischemia in setting of electrolyte abnormalities, dehydration, and known hypertrophic CM ECHO with preserved EF, no WMAs, with HCM but no LVOT CTA CHest neg for PE or PNA but with debris in esophagus and distal esophageal thickening, anterior chest fluid collection 7.2 x 2.0 cm post op seroma, and possible early fibrosis of lungs--> possible radiation effect? No pain on palpation but rather suspect odynophagia GI consulted and EGD 03/08 shows moderately severe ulcerative esophagitis with active bleeding Brushings were taken to look for CMV, HSV, Fungal infection--> I do not see the cytology pending yet Serum HSV titers, CMV titers, and fungal culture are pending -continue Protonix bid -started carafate 1 gram po qid -advance diet to full liquids -dc IVFs -follow results of cytology from EGD, CMV, HSV, fungal culture -follow CBC, BMP, Mag -hold ELiquis and ASA for ongoing active bleeding in esophagus (2) Esophageal bleeding due to ulcerative esophagitis: Plan: as above (3) Hypokalemia: Plan: Hypokalemia/hypomagnesemia -Potassium 2.6, magnesium 0.8 on arrival Suspect due to poor po intake from severe esophagitis/odynophagia, diarrhea. -S/p repletion and now resolved -follow BMP, Mag in AM (4) Hypomagnesemia: Plan: above (5) Elevated troponin: Plan: demand ischemia in setting of asymmetric hypertrophy of septum on last ECHO serial trop peaked at 51 and back down,ECHO here similar to previous (6) Hypocalcemia: Plan: VIt D level from 12/2022 low at 20 start Calcium + Vit D supplement (7) Diabetes mellitus with stage 3b chronic kidney disease, with long-term current use of insulin: Plan: hold home metformin Have significantly reduced Lantus dose here due to hypoglycemia from poor po intake continue Novolog sliding scale (8) Memory loss: Plan: Since October 2022. Started as result of CVA, retrograde amnesia Continue home donepezil (9) Urinary incontinence: Plan: -Chronic. Continue home oxybutynin (10) Cerebrovascular disease: Plan: History of CVA, PAF -holding ASA, ELiquis due to bleeding in esophagus -continue rosuvastatin 10 mg nightly. (11) Anxiety: Plan: -Managed on sertraline 100 mg since October -Also on as needed lorazepam-has not used in months. -Patient continues to report depressed mood with no improvement since initiation of sertraline. -Patient also follows with psychotherapy and was scheduled for therapist visit this week but missed appt -Patient reports apathy regarding . However, she denies suicidal ideation or intent. -f/u outpt, monitor for worsening here (12) Breast cancer: Plan: -S/p double mastectomy. Was in remission for 16 years until 2 years ago had [address] wall mass removed and underwent radiation Continue home anastrozole 1 mg every morning (13) Hypothyroidism: Plan: -Chronic. TSH here elevated at 7 but was normal just 6 weeks before that--likely elevated in setting of acute illness -continue home dose of levothyroxine 75 mcg. (14) Leukocytosis: Plan: has a h/o CLL, with expectant observation, no treatment Plan Dispo-continued stay until taking adequate po with chest pain controlled. PT/OT recommending rehab-referrals made through machine adjuster leader case trim Admission and Anticipated Discharge Date Admission Date: March 06, 2023 Subjective Pt had EGD today which showed severe ulcerative esophagitis with active bleeding. Pt still having significant chest pain with even taking broth. No further diarrhea. Tele with NSR< rates 70-80s Discussed care with GI Physical Exam Constitutional: WD/WN, vitals as above Neck: trachea midline, no thyromegaly Respiratory: normal respiratory effort, lungs clear to auscultation Cardiovascular: RRR, no murmur, no edema Chest (Breasts): Chest: normal inspection of chest Gastrointestinal (Abdomen): normal bowel sounds, soft, nontender, no hepatosplenomegaly Musculoskeletal: Extremities: extremities normal to inspection; no cyanosis and no clubbing Skin: no rashes, warm and dry Neurologic: moves all extremities and awake; no focal motor deficits Psychiatric: A+Ox3, euthymic affect Lymphatic: no lymphedema Results & Data Results & Data Vital Signs (Past 12 Hours) Vital Signs Temp Pulse Pulse Resp BP Pulse Ox O2 Del Method 03/08/23 16:54 75 20 173/95 H 94 Room Air 03/08/23 16:40 68 20 161/80 H 93 Room Air 03/08/23 16:25 80 16 189/91 H 94 Room Air 03/08/23 15:49 75 03/08/23 15:12 36.7 C 72 20 181/79 H 90 Room Air 03/08/23 11:24 36.7 C 74 18 167/81 H 93 Nasal Cannula 03/08/23 07:32 36.8 C 65 20 190/75 H 96 Nasal Cannula 03/08/23 07:34 72 O2 Flow Rate 03/08/23 16:54 03/08/23 16:40 03/08/23 16:25 03/08/23 15:49 03/08/23 15:12 03/08/23 11:24 2 03/08/23 07:32 2 03/08/23 07:34 Laboratory Results CBC,CMP, mag, phos reviewed PG Care Time/CCT Total # of Minutes Spent Total Time Spent with Patient: Total time spent is greater than 50% in coordination of care (as documented) at patient's floor/unit and/or counseling patient: Coding Level of Care Code 66038 SUB INP/OBS CARE 2/35MIN Diagnoses Chest pain R07.9 Esophageal bleeding due to ulcerative esophagitis K22.11 Hypokalemia E87.6 Hypomagnesemia E83.42 Elevated troponin R79.89 Hypocalcemia E83.51 Diabetes mellitus with stage 3b chronic kidney disease, with long-term current use of insulin E11.22; N18.32; Z79.4 Memory loss R41.3 Urinary incontinence R32 Cerebrovascular disease I67.9 Anxiety F41.9 Breast cancer C50.919 Hypothyroidism E03.9 Hypothyroidism type: unspecified Leukocytosis D72.829 (13) Hypothyroidism Hypothyroidism type: unspecified Qualified Code(s): E03.9 - Hypothyroidism, unspecified
[2023-03-08] MEDS: SUCRALFATE 1 GM/10 ML UDC PO SCH (19:25)
[2023-03-08] MEDS: DONEPEZIL HCL 10 MG TAB PO SCH (20:03)
[2023-03-08] MEDS: SERTRALINE HCL 100 MG TABLET PO SCH (20:04)
[2023-03-08] MEDS: ROSUVASTATIN CALCIUM 10 MG TAB PO SCH (20:04)
[2023-03-09] MEDS ORDERED: LOPERAMIDE HCL 2 MG CAP PO PRN (00:24)
[2023-03-09 00:26] LABS: Adenovirus F 40/41 PCR Not Detected (NotDetected); Astrovirus PCR Not Detected (NotDetected); Campylobacter PCR Not Detected (NotDetected); Cryptosporidium PCR Not Detected (NotDetected); Cyclospora cayetanensis PCR Not Detected (NotDetected); Entamoeba histolytica PCR Not Detected (NotDetected); Enteroaggregative E.coli(EAEC) Not Detected (NotDetected); Enteropathogenic E.coli (EPEC) Not Detected (NotDetected); Enterotoxigenic E.coli (ETEC) Not Detected (NotDetected); Giardia lamblia PCR Not Detected (NotDetected); Norovirus GI/GII PCR Not Detected (NotDetected); Plesiomonas shigelloides PCR Not Detected (NotDetected); Rotavirus A PCR Not Detected (NotDetected); Salmonella PCR Not Detected (NotDetected); Sapovirus PCR Not Detected (NotDetected); Shiga-like Toxin E.coli (STEC) Not Detected (NotDetected); Shigella/Enteroinvasive E.coli Not Detected (NotDetected); Vibrio cholerae PCR Not Detected (NotDetected); Vibrio species PCR Not Detected (NotDetected); Yersinia enterocolitica PCR Not Detected (NotDetected)
[2023-03-09] MEDS: LEVOTHYROXINE SODIUM 75 MCG TABLET PO SCH (05:40)
[2023-03-09 07:14] LABS: Basophils # (auto) 0.04 K/uL (0.00-0.20); Basophils % (auto) 0.4 %; Eosinophils # (auto) 0.32 K/uL (0.00-0.50); Eosinophils % (auto) 2.9 %; Hematocrit (blood only) 47.3 % (37.0-47.0); Hemoglobin 15.6 g/dl (12.0-16.0); Immature Granulocytes # (auto) 0.04 K/uL (0.01-0.20); Immature Granulocytes % (auto) 0.4 %; Lymphocytes # (auto) 1.76 K/uL (1.20-3.40); Lymphocytes % (auto) 16.1 %; Mean Corpuscular Hemoglobin 28.9 pg (25.0-34.0); Mean Corpuscular Volume 87.8 fL (80.0-100.0); Mean Platelet Volume 12.3 fL (9.4-12.4); Monocytes # (auto) 0.84 K/uL (0.11-0.59); Monocytes % (auto) 7.7 %; Neutrophils # (auto) 7.95 K/uL (1.40-6.50); Neutrophils % (auto) 72.5 %; Platelet Count 226 K/uL (130-400); RDW Coefficient of Variation 16.5 % (11.5-14.5); RDW Standard Deviation 52.4 fL (36.4-46.3); Red Blood Count 5.39 M/uL (4.20-5.40); White Blood Count 10.95 K/ul (4.8-10.8)
[2023-03-09 07:39] LABS: Albumin Globulin Ratio 1.7 (0.9-2); Albumin Level 3.9 gm/dl (3.4-5.0); BUN Creatinine Ratio 8.6 (10-20); Bilirubin,Total 0.7 mg/dl (0.2-1.0); Calcium 8.7 mg/dl (8.6-10.3); Creatinine Clr Calc Pharmacy 47.9 ml/min; Est GFR (African American) 78.4 ml/min; Est GFR (Non-African American) 67.6 ml/min; Globulin 2.3 gm/dl (2.5-4.0); Magnesium 1.8 mg/dl (1.7-2.4); Phosphorus 2.2 mg/dl (2.5-4.9); Potassium 3.6 mmol/L (3.5-5.1); Total Protein 6.2 gm/dl (6.0-8.3)
[2023-03-09] MEDS: SUCRALFATE 1 GM/10 ML UDC PO SCH ×4 (08:29→20:32)
[2023-03-09] MEDS: CEROVITE ADV FORMULA TAB PO SCH (08:29)
[2023-03-09] MEDS: PANTOprazole 40 MG TAB PO SCH ×2 (08:29→20:35)
[2023-03-09] MEDS: oxyBUTYnin chloride 5 MG TAB PO SCH ×2 (08:29→20:33)
[2023-03-09] MEDS: ANASTROZOLE 1 MG TAB PO SCH (08:30)
[2023-03-09] MEDS: CALCIUM 600MG + VIT D 400 IU TAB PO SCH ×2 (08:30→20:37)
[2023-03-09] MEDS: INSULIN ASPART PER UNIT CHARGE SC SCH ×4 (09:57→20:30)
[2023-03-09] MEDS: LANTUS PER UNIT CHARGE SC SCH (09:58)
--- NOTE | 2023-03-09 10:01 | Gastroenterology Progress Note ---
Date of Service March 09, 2023 Assessment & Plan (1) Odynophagia: (2) Chest pain: (3) Esophageal bleeding due to ulcerative esophagitis: Plan -Continue full liquid diet with advancement as tolerated. -Continue Pantoprazole 40 mg IV BID as well as Carafate 10 ml QID. -Await pending viral serologies. -Continue supportive care per primary team. Admission and Anticipated Discharge Date Admission Date: March 06, 2023 Supervising Physician Co-Signing Physician Notes Agree with SHANE Malloy as above Abd: Soft, NT, ND, +BS Continues to have difficulty swallowing Continue current therapy and supportive care Viral serologies and brushings pending Subjective Patient is status post EGD yesterday by Dr. Tim with findings of severe esophagitis. HSV and CMV testing is pending. Has been started on Carafate 1g QID in addition to BID PPI. Tolerating a full liquid diet. Reports less chest pain and odynophagia from yesterday. No overt GIB. Review of Systems Constitutional: no problem reported Gastrointestinal: as per Subjective / HPI Physical Exam Constitutional: WD/WN, vitals as above Neck: normal visual inspection Respiratory: normal respiratory effort, lungs clear to auscultation Cardiovascular: Rate/Rhythm: regular rate and regular rhythm Gastrointestinal (Abdomen): normal bowel sounds, soft, nontender, no hepatosplenomegaly Psychiatric: A+Ox3, euthymic affect Results & Data Results & Data Vital Signs (Past 12 Hours) Vital Signs Temp Pulse Pulse Resp BP Pulse Ox O2 Del Method 03/09/23 08:10 36.9 C 82 20 175/78 H 94 Room Air 03/09/23 04:17 36.8 C 81 20 161/84 H 92 Room Air 03/09/23 00:09 77 PG Care Time/CCT Total # of Minutes Spent Total Time Spent with Patient: Total time spent is greater than 50% in coordination of care (as documented) at patient's floor/unit and/or counseling patient: Coding Level of Care Code 31214 SUB INP/OBS CARE 3/50MIN Diagnoses Odynophagia R13.10 Chest pain R07.9 Esophageal bleeding due to ulcerative esophagitis K22.11
--- NOTE | 2023-03-09 17:09 | Hospitalist Progress Note ---
Date of Service March 09, 2023 Assessment & Plan (1) Chest pain: Plan: No evidence of acute coronary syndrome. Chest pain is from esophageal etiology. Improved. Troponin elevation more than likely is due to demand ischemia. ECHO with preserved EF, no WMAs, with HCM but no LVOT. CTA CHest neg for PE or PNA but with debris in esophagus and distal esophageal thickening. (2) Esophageal bleeding due to ulcerative esophagitis: Plan: GI consult and recommendations appreciated. EGD completed yesterday, March 08. Esophagitis found as expected. Continue Protonix and Carafate. Diet has been advanced. Eliquis is on hold (3) Hypokalemia: Plan: Present on admission. Now corrected (4) Hypomagnesemia: Plan: Present on admission. Now corrected (5) Elevated troponin: Plan: demand ischemia. No evidence of acute coronary syndrome. Cardiac echo negative for regional wall motion abnormalities (6) Hypocalcemia: Plan: VIt D level from 12/2022 low at 20. Started Calcium + Vit D supplement (7) Diabetes mellitus with stage 3b chronic kidney disease, with long-term current use of insulin: Plan: holding metformin. Reduced Lantus dose while hospitalized due to poor po intake. Sliding scale insulin as needed (8) Memory loss: Plan: Supportive care. Continue donepezil (9) Urinary incontinence: Plan: Stable. Continue oxybutynin (10) Cerebrovascular disease: Plan: History of CVA, PAF. Holding ASA, ELiquis due to bleeding in esophagus . Continue rosuvastatin 10 mg nightly. (11) Anxiety: Plan: Managed on sertraline 100 mg since October. Also on as needed lorazepam, but not used in months. Continues to report depressed mood with no improvement since initiation of sertraline. No current suicidal ideation. Follow-up with outpatient psychiatry (12) Breast cancer: Plan: S/p double mastectomy. Was in remission for 16 years until 2 years ago had chest wall mass removed and underwent radiation. Continue home anastrozole 1 mg every morning (13) Hypothyroidism: Plan: Stable. Continue replacement therapy with levothyroxine Plan Hopeful discharge to [facility] tomorrowMarch 10 Admission and Anticipated Discharge Date Admission Date: March 06, 2023 Subjective Alert and oriented. No new problems. She remains on Protonix and Carafate. Diet advanced to soft diet today. Hopeful discharge to [facility] tomorrow, March 10. EGD was accomplished yesterday, March 08, with findings of esophagitis as expected. Review of Systems Review of Systems: Constitutional-no fever or chills ENT-no blurred vision, no double vision, no epistaxis, no sore throat Respiratory-no cough, no wheezing, no shortness of breath Cardiac-no palpitations, no chest pain, no syncope GI-no nausea, vomiting, diarrhea, melena, hematochezia. Mild odynophagia while swallowing -no urinary retention, no urinary incontinence, no dysuria, no hematuria Musculoskeletal-no joint pain, no muscle tenderness Skin-no bruising, no rashes, no pruritus Neuro-no isolated weakness, no paresthesia, no weakness Psych-no depression, no anxiety Physical Exam Physical Exam: General-alert and oriented x3, no fevers, no chills HEENT-head atraumatic and normocephalic, pupils equal and reactive to light, extraocular muscles intact Neck-no lymphadenopathy or thyromegaly, trachea midline Chest-clear to auscultation percussion. No rales wheezing or rhonchi Cardiac-regular rate and rhythm, normal S1 and S2 Abdomen-normal bowel sounds, nontender, no hepatosplenomegaly Extremities-no cyanosis, clubbing, or edema Neuro-cranial nerves II through XII intact, motor and sensory function within normal limits, strength symmetrical, no focal deficits Psych-normal affect, normal mood Results & Data Results & Data Vital Signs (Past 12 Hours) Vital Signs Temp Pulse Pulse Resp BP Pulse Ox O2 Del Method 03/09/23 16:00 78 03/09/23 15:15 36.8 C 74 20 131/71 94 Room Air 03/09/23 12:53 94 03/09/23 11:26 36.7 C 71 20 144/58 H 93 Room Air 03/09/23 10:37 81 03/09/23 08:10 36.9 C 82 20 175/78 H 94 Room Air Laboratory Results 03/09/23 05:45 03/09/23 05:45 PG Care Time/CCT Total # of Minutes Spent Total Time Spent with Patient: Total time spent is greater than 50% in coordination of care (as documented) at patient's floor/unit and/or counseling patient: Coding Level of Care Code 95218 SUB INP/OBS CARE 3/50MIN Diagnoses Chest pain R07.9 Esophageal bleeding due to ulcerative esophagitis K22.11 Hypokalemia E87.6 Hypomagnesemia E83.42 Elevated troponin R79.89 Hypocalcemia E83.51 Diabetes mellitus with stage 3b chronic kidney disease, with long-term current use of insulin E11.22; N18.32; Z79.4 Memory loss R41.3 Urinary incontinence R32 Cerebrovascular disease I67.9 Anxiety F41.9 Breast cancer C50.919 Hypothyroidism E03.9 Hypothyroidism type: unspecified (13) Hypothyroidism Hypothyroidism type: unspecified Qualified Code(s): E03.9 - Hypothyroidism, unspecified
[2023-03-09] MEDS: DONEPEZIL HCL 10 MG TAB PO SCH (20:36)
[2023-03-09] MEDS: ROSUVASTATIN CALCIUM 10 MG TAB PO SCH (20:37)
[2023-03-09] MEDS: SERTRALINE HCL 100 MG TABLET PO SCH (20:37)
[2023-03-10] MEDS: LEVOTHYROXINE SODIUM 75 MCG TABLET PO SCH (06:03)
[2023-03-10 08:41] LABS: Albumin Globulin Ratio 1.7 (0.9-2); Albumin Level 3.8 gm/dl (3.4-5.0); BUN Creatinine Ratio 12.1 (10-20); Bilirubin,Total 0.5 mg/dl (0.2-1.0); Calcium 9.1 mg/dl (8.6-10.3); Creatinine Clr Calc Pharmacy 42.6 ml/min; Est GFR (African American) 68.1 ml/min; Est GFR (Non-African American) 58.8 ml/min; Globulin 2.3 gm/dl (2.5-4.0); Magnesium 1.7 mg/dl (1.7-2.4); Phosphorus 2.4 mg/dl (2.5-4.9); Potassium 3.7 mmol/L (3.5-5.1); Total Protein 6.1 gm/dl (6.0-8.3)
[2023-03-10 08:44] LABS: Basophils # (auto) 0.03 K/uL (0.00-0.20); Basophils % (auto) 0.3 %; Eosinophils # (auto) 0.37 K/uL (0.00-0.50); Eosinophils % (auto) 3.5 %; Hematocrit (blood only) 46.2 % (37.0-47.0); Hemoglobin 15.3 g/dl (12.0-16.0); Immature Granulocytes # (auto) 0.04 K/uL (0.01-0.20); Immature Granulocytes % (auto) 0.4 %; Lymphocytes % (auto) 16.8 %; Mean Corpuscular Hgb Conc 33.1 g/dL (32.0-36.0); Mean Corpuscular Volume 87.7 fL (80.0-100.0); Mean Platelet Volume 12.3 fL (9.4-12.4); Monocytes % (auto) 7.5 %; Neutrophils # (auto) 7.65 K/uL (1.40-6.50); Neutrophils % (auto) 71.5 %; Platelet Count 225 K/uL (130-400); RDW Coefficient of Variation 16.4 % (11.5-14.5); RDW Standard Deviation 52.1 fL (36.4-46.3); Red Blood Count 5.27 M/uL (4.20-5.40); White Blood Count 10.69 K/ul (4.8-10.8)
[2023-03-10] MEDS: PANTOprazole 40 MG TAB PO SCH ×2 (09:16→20:25)
[2023-03-10] MEDS: CALCIUM 600MG + VIT D 400 IU TAB PO SCH ×2 (09:16→20:26)
[2023-03-10] MEDS: ANASTROZOLE 1 MG TAB PO SCH (09:16)
[2023-03-10] MEDS: CEROVITE ADV FORMULA TAB PO SCH (09:16)
[2023-03-10] MEDS: SUCRALFATE 1 GM/10 ML UDC PO SCH ×4 (09:18→20:24)
[2023-03-10] MEDS: LANTUS PER UNIT CHARGE SC SCH (09:49)
[2023-03-10] MEDS: INSULIN ASPART PER UNIT CHARGE SC SCH ×4 (09:50→20:35)
[2023-03-10] MEDS: HEPARIN 100 UNIT/ML 5ML FLUSH FLUSH PRN (09:51)
--- NOTE | 2023-03-10 14:07 | Hospitalist Progress Note ---
Date of Service March 10, 2023 Assessment & Plan (1) Chest pain: Plan: No evidence of acute coronary syndrome. Chest pain is from esophageal etiology. No acute EKG changes seen. Troponin elevation more than likely is due to demand ischemia. ECHO with preserved EF, no WMAs, with HCM but no LVOT. CTA CHest neg for PE or PNA but with debris in esophagus and distal esophageal thickening. (2) Esophageal bleeding due to ulcerative esophagitis: Plan: GI consult and recommendations appreciated. EGD completed on March 08. Esophagitis found as expected. Continue Protonix and Carafate. Diet has been advanced. Eliquis has been discontinued temporarily (3) Hypokalemia: Plan: Present on admission. Now corrected (4) Hypomagnesemia: Plan: Present on admission. Now corrected (5) Elevated troponin: Plan: demand ischemia. No evidence of acute coronary syndrome. Cardiac echo negative for regional wall motion abnormalities. No acute EKG changes (6) Hypocalcemia: Plan: VIt D level from 12/2022 low at 20. Started Calcium + Vit D supplement (7) Diabetes mellitus with stage 3b chronic kidney disease, with long-term current use of insulin: Plan: holding metformin. Reduced Lantus dose while hospitalized due to poor po intake. Sliding scale insulin as needed (8) Memory loss: Plan: Supportive care. Continue donepezil (9) Urinary incontinence: Plan: Stable. Continue oxybutynin (10) Cerebrovascular disease: Plan: History of CVA, PAF. Holding ASA, ELiquis due to bleeding in esophagus . Continue rosuvastatin 10 mg nightly. (11) Anxiety: Plan: With depression. Behavioral health consultation requested. Managed on sertraline 100 mg since October. Also on as needed lorazepam, but not used in months. Continues to report depressed mood with no improvement since initiation of sertraline. No current suicidal ideation. (12) Breast cancer: Plan: S/p double mastectomy. Was in remission for 16 years until 2 years ago had chest wall mass removed and underwent radiation. Continue home anastrozole 1 mg every morning (13) Hypothyroidism: Plan: Stable. Continue replacement therapy with levothyroxine Plan Hopeful discharge to [facility] tomorrowMarch 11 Admission and Anticipated Discharge Date Admission Date: March 06, 2023 Subjective Depressed affect. She has requested to see behavioral health. Apparently [facility] cannot accept the patient until tomorrowMarch 11. Eliquis has been discontinued. She remains on Protonix and Carafate. Recurrent chest pain appears to be of esophageal etiology. No acute EKG changes seen. Review of Systems Review of Systems: Constitutional-no fever or chills ENT-no blurred vision, no double vision, no epistaxis, no sore throat Respiratory-no cough, no wheezing, no shortness of breath Cardiac-no palpitations, no chest pain, no syncope GI-no nausea, vomiting, diarrhea, melena, hematochezia. Mild odynophagia while swallowing -no urinary retention, no urinary incontinence, no dysuria, no hematuria Musculoskeletal-no joint pain, no muscle tenderness Skin-no bruising, no rashes, no pruritus Neuro-no isolated weakness, no paresthesia, no weakness Psych-no depression, no anxiety Physical Exam Physical Exam: General-alert and oriented x3, no fevers, no chills HEENT-head atraumatic and normocephalic, pupils equal and reactive to light, extraocular muscles intact Neck-no lymphadenopathy or thyromegaly, trachea midline Chest-clear to auscultation percussion. No rales wheezing or rhonchi Cardiac-regular rate and rhythm, normal S1 and S2 Abdomen-normal bowel sounds, nontender, no hepatosplenomegaly Extremities-no cyanosis, clubbing, or edema Neuro-cranial nerves II through XII intact, motor and sensory function within normal limits, strength symmetrical, no focal deficits Psych-normal affect, normal mood Results & Data Results & Data Vital Signs (Past 12 Hours) Vital Signs Temp Pulse Pulse Pulse Resp BP Pulse Ox 03/10/23 11:54 37.0 C 73 16 153/71 H 90 03/10/23 10:26 37.0 C 62 79 16 159/73 H 91 03/10/23 10:22 37.0 C 62 79 16 159/73 H 91 03/10/23 08:53 37.0 C 79 20 159/73 H 91 03/10/23 08:54 37.0 C 79 16 159/73 H 91 03/10/23 08:05 37.0 C 76 16 172/70 H 92 03/10/23 07:00 71 03/10/23 03:25 36.9 C 68 18 171/82 H 94 O2 Del Method 03/10/23 11:54 Room Air 03/10/23 10:26 03/10/23 10:22 03/10/23 08:53 Room Air 03/10/23 08:54 Room Air 03/10/23 08:05 Room Air 03/10/23 07:00 03/10/23 03:25 Room Air Laboratory Results 03/10/23 08:10 03/10/23 08:10 PG Care Time/CCT Total # of Minutes Spent Total Time Spent with Patient: Total time spent is greater than 50% in coordination of care (as documented) at patient's floor/unit and/or counseling patient: Coding Level of Care Code 71590 SUB INP/OBS CARE 2/35MIN Diagnoses Chest pain R07.9 Esophageal bleeding due to ulcerative esophagitis K22.11 Hypokalemia E87.6 Hypomagnesemia E83.42 Elevated troponin R79.89 Hypocalcemia E83.51 Diabetes mellitus with stage 3b chronic kidney disease, with long-term current use of insulin E11.22; N18.32; Z79.4 Memory loss R41.3 Urinary incontinence R32 Cerebrovascular disease I67.9 Anxiety F41.9 Breast cancer C50.919 Hypothyroidism E03.9 Hypothyroidism type: unspecified (13) Hypothyroidism Hypothyroidism type: unspecified Qualified Code(s): E03.9 - Hypothyroidism, unspecified
[2023-03-10] MEDS: ROSUVASTATIN CALCIUM 10 MG TAB PO SCH (20:24)
[2023-03-10] MEDS: DONEPEZIL HCL 10 MG TAB PO SCH (20:26)
[2023-03-10] MEDS: SERTRALINE HCL 100 MG TABLET PO SCH (20:27)
--- NOTE | 2023-03-11 01:18 | Communication Note ---
Date of Service: March 11, 2023 1:16 Stroke alert called per nursing patient was waking from sleep noted slurred speech confusion unable to state where she was possible left sided facial droop. With time speech improved. Glucose in 120's. Given history of CVA in the past eliquis currently on hold will order stat CT head no contrast. CT head unremarkable, low concern for stroke at this time, no need to contact Neurology at this time.
--- NOTE | 2023-03-11 01:43 | CT Scan Report ---
Exam(s): CT HEAD Without Contrast EXAM: CT Head Without Intravenous Contrast CLINICAL HISTORY: AMS. TECHNIQUE: Axial computed tomography images of the head/brain without intravenous contrast. CTDI is 37.12 mGy and DLP is 624.41 mGy-cm. Automated exposure control was utilized for the study. A dose lowering technique was utilized adhering to the principles of ALARA. COMPARISON: CT head without contrast and CTA 01/30/2021 FINDINGS: Brain: There are a few areas of decreased attenuation in the deep cerebral white matter consistent with mild small vessel ischemic/degenerative changes. The cerebral and cerebellar sulci are mildly prominent consistent with mild brain atrophy. Subcentimeter ovoid hypodense area in the lateral right basal ganglia. No hemorrhage. Ventricles: Unremarkable. No ventriculomegaly. Bones/joints: Unremarkable. No acute fracture. Soft tissues: Unremarkable. Vasculature: Stable vascular stent with adjacent endovascular coiling artifact noted in the posterior fossa in the region of the distal left vertebral artery and left PICA. Atherosclerotic disease of the cavernous internal carotid arteries. Sinuses: Unremarkable as visualized. No acute sinusitis. Mastoid air cells: Unremarkable as visualized. No mastoid effusion. IMPRESSION: No acute intracranial process or significant alteration when compared to the previous examination. Similar chronic underlying presumed age- related findings, not significantly altered when compared to the previous examination. Communications: Call Doctor Stroke Electronically signed by: Hemanth Dela Cruz MD 03/11/23 01:43 AM
[2023-03-11] MEDS: LEVOTHYROXINE SODIUM 75 MCG TABLET PO SCH (05:58)
[2023-03-11 06:44] LABS: Basophils # (auto) 0.03 K/uL (0.00-0.20); Basophils % (auto) 0.4 %; Eosinophils # (auto) 0.31 K/uL (0.00-0.50); Eosinophils % (auto) 3.7 %; Hematocrit (blood only) 45.5 % (37.0-47.0); Hemoglobin 15.3 g/dl (12.0-16.0); Immature Granulocytes # (auto) 0.04 K/uL (0.01-0.20); Immature Granulocytes % (auto) 0.5 %; Lymphocytes % (auto) 27.1 %; Mean Corpuscular Hemoglobin 29.5 pg (25.0-34.0); Mean Corpuscular Hgb Conc 33.6 g/dL (32.0-36.0); Mean Corpuscular Volume 87.7 fL (80.0-100.0); Mean Platelet Volume 12.3 fL (9.4-12.4); Monocytes # (auto) 0.61 K/uL (0.11-0.59); Monocytes % (auto) 7.2 %; Neutrophils # (auto) 5.19 K/uL (1.40-6.50); Neutrophils % (auto) 61.1 %; Platelet Count 220 K/uL (130-400); RDW Coefficient of Variation 16.4 % (11.5-14.5); RDW Standard Deviation 52.4 fL (36.4-46.3); Red Blood Count 5.19 M/uL (4.20-5.40); White Blood Count 8.48 K/ul (4.8-10.8)
[2023-03-11 07:13] LABS: Albumin Globulin Ratio 1.7 (0.9-2); Albumin Level 3.8 gm/dl (3.4-5.0); BUN Creatinine Ratio 14.6 (10-20); Bilirubin,Total 0.5 mg/dl (0.2-1.0); Calcium 9.4 mg/dl (8.6-10.3); Creatinine Clr Calc Pharmacy 40.4 ml/min; Est GFR (African American) 63.8 ml/min; Est GFR (Non-African American) 55.1 ml/min; Globulin 2.3 gm/dl (2.5-4.0); Magnesium 1.7 mg/dl (1.7-2.4); Phosphorus 2.6 mg/dl (2.5-4.9); Potassium 3.4 mmol/L (3.5-5.1); Total Protein 6.1 gm/dl (6.0-8.3)
[2023-03-11] MEDS ORDERED: POTASSIUM CHLORIDE CRTAB 20 MEQ TABCR PO STA (08:37)
[2023-03-11] MEDS: oxyBUTYnin chloride 5 MG TAB PO SCH (09:00)
[2023-03-11] MEDS: ANASTROZOLE 1 MG TAB PO SCH (09:11)
[2023-03-11] MEDS: CEROVITE ADV FORMULA TAB PO SCH (09:11)
[2023-03-11] MEDS: CALCIUM 600MG + VIT D 400 IU TAB PO SCH ×2 (09:11→21:32)
[2023-03-11] MEDS: SUCRALFATE 1 GM/10 ML UDC PO SCH ×4 (09:11→21:31)
[2023-03-11] MEDS: PANTOprazole 40 MG TAB PO SCH ×2 (09:11→21:31)
[2023-03-11] MEDS: INSULIN ASPART PER UNIT CHARGE SC SCH ×4 (09:18→21:30)
[2023-03-11] MEDS: LANTUS PER UNIT CHARGE SC SCH (09:18)
--- NOTE | 2023-03-11 14:12 | Hospitalist Progress Note ---
Date of Service March 11, 2023 Assessment & Plan (1) Chest pain: Plan: No evidence of acute coronary syndrome. Chest pain is from esophageal etiology. No acute EKG changes seen. Troponin elevation more than likely is due to demand ischemia. ECHO with preserved EF, no WMAs, with HCM but no LVOT. CTA CHest neg for PE or PNA but with debris in esophagus and distal esophageal thickening. (2) Esophageal bleeding due to ulcerative esophagitis: Plan: GI consult and recommendations appreciated. EGD completed on March 08. Esophagitis found as expected. Continue Protonix and Carafate. Diet has been advanced. Eliquis has been discontinued (3) Hypokalemia: Plan: Present on admission, treated, now recurrent. Continue potassium replacement therapy. Serial lab (4) Hypomagnesemia: Plan: Present on admission. Now corrected (5) Elevated troponin: Plan: demand ischemia. No evidence of acute coronary syndrome. Cardiac echo negative for regional wall motion abnormalities. No acute EKG changes (6) Hypocalcemia: Plan: VIt D level from 12/2022 low at 20. Now on Calcium + Vit D supplement (7) Diabetes mellitus with stage 3b chronic kidney disease, with long-term current use of insulin: Plan: holding metformin. Reduced Lantus dose while hospitalized due to poor po intake. Sliding scale insulin as needed (8) Memory loss: Plan: Supportive care. Continue donepezil (9) Urinary incontinence: Plan: Stable. Continue oxybutynin (10) Cerebrovascular disease: Plan: History of CVA, PAF. Holding ASA, ELiquis due to bleeding in esophagus . Continue rosuvastatin 10 mg nightly. (11) Anxiety: Plan: With depression. Behavioral health consultation appreciated. Managed on sertraline 100 mg since October. Also on as needed lorazepam, but not used in months. Continues to report depressed mood with no improvement since initiation of sertraline. No current suicidal ideation. (12) Breast cancer: Plan: S/p double mastectomy. Was in remission for 16 years until 2 years ago had chest wall mass removed and underwent radiation. Continue home anastrozole 1 mg every morning (13) Hypothyroidism: Plan: Stable. Continue replacement therapy with levothyroxine Plan [facility] are finalized Admission and Anticipated Discharge Date Admission Date: March 06, 2023 Subjective Alert and oriented. She continues with a depressed affect. Appreciate behavioral health assistance. Stroke alert was called last night and the stat head CT scan was negative. She has no evidence of acute CVA at this time. Mild hypokalemia has been treated. Awaiting eventual placement at [facility]. Mila wilsonis has been discontinued Review of Systems Review of Systems: Constitutional-no fever or chills ENT-no blurred vision, no double vision, no epistaxis, no sore throat Respiratory-no cough, no wheezing, no shortness of breath Cardiac-no palpitations, no chest pain, no syncope GI-no nausea, vomiting, diarrhea, melena, hematochezia. Mild odynophagia while swallowing -no urinary retention, no urinary incontinence, no dysuria, no hematuria Musculoskeletal-no joint pain, no muscle tenderness Skin-no bruising, no rashes, no pruritus Neuro-no isolated weakness, no paresthesia, no weakness Psych-depression. Physical Exam Physical Exam: General-alert and oriented x3, no fevers, no chills HEENT-head atraumatic and normocephalic, pupils equal and reactive to light, extraocular muscles intact Neck-no lymphadenopathy or thyromegaly, trachea midline Chest-clear to auscultation percussion. No rales wheezing or rhonchi Cardiac-regular rate and rhythm, normal S1 and S2 Abdomen-normal bowel sounds, nontender, no hepatosplenomegaly Extremities-no cyanosis, clubbing, or edema Neuro-cranial nerves II through XII intact, motor and sensory function within normal limits, strength symmetrical, no focal deficits Psych-depressed affect Results & Data Results & Data Vital Signs (Past 12 Hours) Vital Signs Temp Pulse Pulse Pulse Resp BP Pulse Ox 03/11/23 11:30 36.7 C 62 68 16 133/70 95 03/11/23 11:11 36.7 C 68 16 133/70 95 03/11/23 08:00 03/11/23 07:47 36.3 C L 62 16 138/75 95 03/11/23 07:00 62 03/11/23 04:42 66 18 172/85 H 93 03/11/23 04:16 36.4 C L 66 20 164/72 H 93 03/11/23 02:10 50 L O2 Del Method 03/11/23 11:30 03/11/23 11:11 Room Air 03/11/23 08:00 Room Air 03/11/23 07:47 Room Air 03/11/23 07:00 03/11/23 04:42 Room Air 03/11/23 04:16 Room Air 03/11/23 02:10 Laboratory Results 03/11/23 05:52 03/11/23 05:52 PG Care Time/CCT Total # of Minutes Spent Total Time Spent with Patient: Total time spent is greater than 50% in coordination of care (as documented) at patient's floor/unit and/or counseling patient: Coding Level of Care Code 75643 SUB INP/OBS CARE 3/50MIN Diagnoses Chest pain R07.9 Esophageal bleeding due to ulcerative esophagitis K22.11 Hypokalemia E87.6 Hypomagnesemia E83.42 Elevated troponin R79.89 Hypocalcemia E83.51 Diabetes mellitus with stage 3b chronic kidney disease, with long-term current use of insulin E11.22; N18.32; Z79.4 Memory loss R41.3 Urinary incontinence R32 Cerebrovascular disease I67.9 Anxiety F41.9 Breast cancer C50.919 Hypothyroidism E03.9 Hypothyroidism type: unspecified (13) Hypothyroidism Hypothyroidism type: unspecified Qualified Code(s): E03.9 - Hypothyroidism, unspecified
[2023-03-11] MEDS: HEPARIN 100 UNIT/ML 5ML FLUSH FLUSH PRN (15:24)
[2023-03-11] MEDS: DONEPEZIL HCL 10 MG TAB PO SCH (21:31)
[2023-03-11] MEDS: SERTRALINE HCL 100 MG TABLET PO SCH (21:31)
[2023-03-11] MEDS: ROSUVASTATIN CALCIUM 10 MG TAB PO SCH (21:31)
[2023-03-12] MEDS: LEVOTHYROXINE SODIUM 75 MCG TABLET PO SCH (05:36)
[2023-03-12 08:04] VITALS: RESP 16; TEMP 97.5
[2023-03-12] MEDS: SUCRALFATE 1 GM/10 ML UDC PO SCH (08:18)
[2023-03-12] MEDS: CALCIUM 600MG + VIT D 400 IU TAB PO SCH (08:18)
[2023-03-12] MEDS: CEROVITE ADV FORMULA TAB PO SCH (08:19)
[2023-03-12] MEDS: oxyBUTYnin chloride 5 MG TAB PO SCH (08:19)
[2023-03-12] MEDS: ANASTROZOLE 1 MG TAB PO SCH (08:19)
[2023-03-12] MEDS: PANTOprazole 40 MG TAB PO SCH (08:19)
[2023-03-12 08:25] LABS: Basophils # (auto) 0.03 K/uL (0.00-0.20); Basophils % (auto) 0.3 %; Eosinophils # (auto) 0.32 K/uL (0.00-0.50); Eosinophils % (auto) 3.1 %; Hematocrit (blood only) 46.5 % (37.0-47.0); Hemoglobin 15.4 g/dl (12.0-16.0); Immature Granulocytes # (auto) 0.04 K/uL (0.01-0.20); Immature Granulocytes % (auto) 0.4 %; Lymphocytes # (auto) 2.13 K/uL (1.20-3.40); Lymphocytes % (auto) 20.9 %; Mean Corpuscular Hemoglobin 29.1 pg (25.0-34.0); Mean Corpuscular Hgb Conc 33.1 g/dL (32.0-36.0); Mean Corpuscular Volume 87.7 fL (80.0-100.0); Mean Platelet Volume 11.7 fL (9.4-12.4); Monocytes # (auto) 0.67 K/uL (0.11-0.59); Monocytes % (auto) 6.6 %; Neutrophils # (auto) 6.99 K/uL (1.40-6.50); Neutrophils % (auto) 68.7 %; Platelet Count 232 K/uL (130-400); RDW Coefficient of Variation 16.4 % (11.5-14.5); RDW Standard Deviation 52.7 fL (36.4-46.3); White Blood Count 10.18 K/ul (4.8-10.8)
[2023-03-12 09:01] LABS: BUN Creatinine Ratio 13.4 (10-20); Calcium 9.9 mg/dl (8.6-10.3); Est GFR (Non-African American) 54.4 ml/min; Potassium 3.7 mmol/L (3.5-5.1)
[2023-03-12] MEDS: INSULIN ASPART PER UNIT CHARGE SC SCH (09:13)
[2023-03-12] MEDS: LANTUS PER UNIT CHARGE SC SCH (09:13)
[2023-03-12] MEDS ORDERED: DOCUSATE SODIUM 100 MG CAP PO SCH (10:00)
[2023-03-12 11:39] VITALS: BP 130/75; O2SAT 95
--- NOTE | 2023-03-12 11:49 | Discharge Summary ---
Date of Service March 12, 2023 Admission HPI Per Admitting Provider Sharon is an 82-year-old woman with a past medical history of CVA, DVT, CKD, type 2 diabetes, GERD, breast cancer s/p double mastectomy, hypothyroidism, CLL, and urinary frequency with incontinence, who presented to the emergency room from home with a complaint of an intermittent squeezing, pressure-like chest pain radiating to her right shoulder and back. Symptoms began yesterday insidiously, without provocation. Patient initially thought it was heartburn. However, chest pain progressively worsened over the day. At nighttime pain was so severe it woke her up from sleep at one point. ROS + nausea, shortness of breath, odynophagia, esophageal dysphagia, and diarrhea breath (since last week, prior to onset of chest pain). She also reports having very little appetite over the past week. However, she denies abdominal pain, or vomiting. In the ED, vitals are within normal limits. Labs were notable for the following: WBC-13.68, sodium-147, K-2.6, Mg-0.8, Ca-7.1, TSH-7.955 (free T4- 0.84), and troponin-16.4. Lipase was normal, as were transaminases. Viral panel was completely negative. Chest CTA was negative for PE or significant effusion. She received Principal Diagnosis Odynophagia due to esophagitis, chest pain due to esophagitis, depression disorder, hypokalemia Discharge Exam General-alert and oriented x3, no fevers, no chills HEENT-head atraumatic and normocephalic, pupils equal and reactive to light, extraocular muscles intact Neck-no lymphadenopathy or thyromegaly, trachea midline Chest-clear to auscultation percussion. No rales wheezing or rhonchi Cardiac-regular rate and rhythm, normal S1 and S2 Abdomen-normal bowel sounds, nontender, no hepatosplenomegaly Extremities-no cyanosis, clubbing, or edema Neuro-cranial nerves II through XII intact, motor and sensory function within normal limits, strength symmetrical, no focal deficits Psych-depressed affect Discharge Data Allergies Allergy/AdvReac Type Severity Reaction Status Date / Time adhesive Allergy Intermediate BLISTERS Verified 11/21/22 09:31 amitriptyline AdvReac Intermediate HALLUCINATI Verified 11/21/22 09:31 ONS atorvastatin AdvReac Intermediate JOINT PAIN Verified 11/21/22 09:31 cephalexin AdvReac Intermediate N/V Verified 11/21/22 09:31 codeine AdvReac Intermediate NAUSEA AND Verified 11/21/22 09:31 VOMITING doxycycline AdvReac Intermediate GI SYMPTOMS Verified 11/21/22 09:31 hydroxychloroquine AdvReac Intermediate Diarrhea Verified 11/21/22 09:31 [From Plaquenil] liraglutide AdvReac Intermediate GI UPSET Verified 11/21/22 09:31 phenol AdvReac Intermediate GI UPSET Verified 11/21/22 09:31 pioglitazone AdvReac Intermediate SEVERE Verified 11/21/22 09:31 FATIGUE tramadol AdvReac Intermediate N/V Verified 11/21/22 09:31 zoster vaccine live AdvReac Unknown Unknown Verified 11/21/22 09:31 [From Zostavax (PF)] Consultations 03/06/23 20:45 ED Decision to Admit Stat 03/07/23 13:45 Consult Gastroenterology Routine 03/10/23 12:49 Consult Behavioral Health Liaison Routine Procedures Performed Operation Date: 03/08/23 17:45 Actual Procedures p EGD Biopsy Cytology - Nick Posada Case, DO Ordered Studies 03/06/23 18:12 CT angio chest dissec wo/w con Stat 03/11/23 01:14 CT head/brain wo con Stat Hospital Course (1) Chest pain: No evidence of acute coronary syndrome. Chest pain is from esophageal etiology. No acute EKG changes seen. Troponin elevation more than likely is due to demand ischemia. ECHO with preserved EF, no WMAs, with HCM but no LVOT. CTA CHest neg for PE or PNA but with debris in esophagus and distal esophageal thickening. (2) Esophageal bleeding due to ulcerative esophagitis: GI consult and recommendations appreciated. EGD completed on March 08. Esophagitis found as expected. Continue Protonix and Carafate. Diet has been advanced. Eliquis has been discontinued (3) Hypokalemia: Present on admission, treated, now recurrent. Treated with potassium replacement therapy. Serial lab (4) Hypomagnesemia: Present on admission. Now corrected (5) Elevated troponin: demand ischemia. No evidence of acute coronary syndrome. Cardiac echo negative for regional wall motion abnormalities. No acute EKG changes (6) Hypocalcemia: VIt D level from 12/2022 low at 20. Now on Calcium + Vit D supplement (7) Diabetes mellitus with stage 3b chronic kidney disease, with long-term current use of insulin: holding metformin until oral intake gets back to baseline. Reduced Lantus dose while hospitalized due to poor po intake. Sliding scale insulin as needed (8) Memory loss: Supportive care. Continue donepezil (9) Urinary incontinence: Stable. Continue oxybutynin (10) Cerebrovascular disease: History of CVA, PAF. Holding ASA, ELiquis due to bleeding in esophagus . Continue rosuvastatin 10 mg nightly. (11) Anxiety: With depression. Behavioral health consultation appreciated. Managed on sertraline 100 mg since October. Also on as needed lorazepam, but not used in months. Continues to report depressed mood with no improvement since initiation of sertraline. No current suicidal ideation. (12) Breast cancer: S/p double mastectomy. Was in remission for 16 years until 2 years ago had chest wall mass removed and underwent radiation. Continue home anastrozole 1 mg every morning (13) Hypothyroidism: Stable. Continue replacement therapy with levothyroxine Plan Discharge to [facility] today, March 12 Total Time Total Time Spent Total Time Spent (In Minutes): 45 minutes Discharge Plan Discharge Items Patient Disposition: Transfer [facility] Reason For Visit: CHEST PAIN Discharge Diagnosis: Odynophagia, esophagitis, chest pain secondary to esophagitis, hypokalemia Activity: Resume your previous activity Non-emergency contact: Primary Care Provider Call non-emergency contact if: your symptoms worsen Follow-up/Referrals: Jennifer Ribera DO [Primary Care Provider] - Diet: Carb Consistent or DM2 Addtl Attending Provider Instructions: Continue Protonix therapy and Carafate therapy as directed Pending Studies at Discharge: No Stand-Alone Forms: My [facility] Skilled Items Patient informed of condition?: Yes DNR: Yes Discharge Level of Care: Skilled Communicable Disease: No Discharge Prognosis: Stable Lines: None Urinary Catheter: No Medications and DC Order Prescriptions: New sucralfate 100 mg/mL Suspension 1 g PO QID Qty: 0 0RF Caltrate 600-D Plus Minerals 600 mg calcium- 800 unit-50 mg Tablet 1 tab PO BID Qty: 0 0RF docusate sodium 100 mg Capsule 100 mg PO BID Qty: 0 0RF baclofen 10 mg Tablet 10 mg PO TID PRNQty: 0 0RF pantoprazole 40 mg Tablet,Delayed Release (Dr/Ec) 40 mg PO BID Qty: 0 0RF Continued Eliquis 5 mg tablet 5 mg PO BID (DME) Wheelchair (Powered) Device See Rx Instructions .Route Qty: 1 0RF Rx Instructions: "power mobility" (DME) Power Wheelchair Device See Rx Instructions .Route Qty: 1 0RF Rx Instructions: Evaluation for therapy power mobility (DME) OneTouch Ultra Test Strip See Rx Instructions .Route Qty: 300 1RF Rx Instructions: Test blood sugars TID (DME) diaper,brief,adult,disposable Misc See Rx Instructions .Route Qty: 60 5RF Rx Instructions: change when soiled - using 2 daily (DME) Underpads Regular Pad See Rx Instructions .Route Qty: 60 5RF Rx Instructions: change when soiled - using 2 daily (DME) Wheeled Walker Misc See Rx Instructions .Route Qty: 1 0RF Rx Instructions: As directed ([facility]) pen needle, diabetic [BD Pratima 2nd Gen Pen Needle] 32 gauge x 5/32" needle See Rx Instructions .Route Qty: 100 3RF Rx Instructions: Use with insulin pen for injection omeprazole 40 mg capsule,delayed release(DR/EC) 40 mg PO QAM Qty: 90 1RF alendronate 70 mg tablet 70 mg PO Q7D Rx Instructions: wednesdays rosuvastatin 10 mg tablet 10 mg PO HS Qty: 90 3RF insulin asp prt-insulin aspart [Novolog Mix 70-30FlexPen U-100] 100 unit/mL (70-30) insulin pen 22 unit SUBCUT BID Levemir FlexTouch U100 Insulin 100 unit/mL (3 mL) insulin pen 25 unit SUBCUT QAM Qty: 30 3RF aspirin 81 mg tablet,chewable 81 mg PO QAM PreserVision Lutein 226 mg-200 unit -5 mg-0.8 mg Capsule 1 cap PO QAM anastrozole 1 mg tablet 1 mg PO QAM metformin 500 mg tablet extended release 24 hr 500 mg PO HS sertraline 100 mg tablet 100 mg PO HS donepezil 10 mg tablet 10 mg PO HS oxybutynin chloride 5 mg tablet 5 mg PO QAM levothyroxine 75 mcg tablet 75 mcg PO QAM lorazepam [Ativan] 0.5 mg Tablet 0.5 mg PO TID PRN (Reason: Anxiety) hydrocodone-acetaminophen 5-325 mg tablet 0.5 tab PO Q6H PRN (Reason: pain) Qty: 10 0RF Discharge Orders: Discharge Order (Routine); Ordered 03/12/23 Ordered By: Jorge Alberto Mahan Admission Data Admit Date/Time: 03/06/23 21:39 Attending Provider: Jorge Alberto Mahan Admit Provider: Claire Jose Primary Care Provider: Jennifer Ribera Other Providers: Angel Davalos ; Nick Tim ; [place],[facility] Other Interventions: Discharge Summary Assessment (RN) Last Done: 03/11/23 11:30 Coding Level of Care Code 21135 INP/OBS DISCH >30 MIN Diagnoses Chest pain R07.9 Esophageal bleeding due to ulcerative esophagitis K22.11 Hypokalemia E87.6 Hypomagnesemia E83.42 Elevated troponin R79.89 Hypocalcemia E83.51 Diabetes mellitus with stage 3b chronic kidney disease, with long-term current use of insulin E11.22; N18.32; Z79.4 Memory loss R41.3 Urinary incontinence R32 Cerebrovascular disease I67.9 Anxiety F41.9 Breast cancer C50.919 Hypothyroidism E03.9 Hypothyroidism type: unspecified
[2023-03-12 12:11] VITALS: PULSE 62
--- NOTE | 2023-03-13 06:12 | Electrocardiogram Report ---
Test Reason : Blood Pressure : / mmHG Vent. Rate : 076 BPM Atrial Rate : 076 BPM P-R Int : 188 ms QRS Dur : 074 ms QT Int : 282 ms P-R-T Axes : 042 -07 046 degrees QTc Int : 317 ms Sinus rhythm with Premature atrial complexes Possible Inferior infarct (cited on or before 06-MAR-2023) Abnormal ECG When compared with ECG of 07-MAR-2023 11:46, No significant change Confirmed by Lauro Hernandez ([id number]) on 03/13/2023 6:12:29 AM Referred By: REFERRED SELF Confirmed By:Lauro Hernandez
[2023-03-15 01:22] LABS: CMV IgG Antibody <0.60 U/mL; CMV IgM Antibody <30.00 AU/mL; HSV Type 1 DNA Not Detected (Not Detected); HSV Type 1&2 DNA Source Whole Blood; HSV Type 2 DNA Not Detected (Not Detected)
== END 2023-03-12 12:45 | DRG 313 ==
LOC: ED 17:36 → EDINP 21:39 → SUATTDRO 21:39 → 2N 03-07 00:30